=== PATIENT | male | born 1975 | race Caucasian/White ===

== ENCOUNTER 2023-07-05 21:45 | Emergency (ER) | payer BC, SELFPAY ==
[2023-07-05] VITALS (21 sets, daily range): BP systolic 70–115; BP diastolic 40–80; PULSE 76–91; RESP 9–21; TEMP 35.8–36.4; O2SAT 48–100; BMI 27.1
--- NOTE | 2023-07-05 21:50 | XR_ITS ---
The [address] [address] Patient Name: RICKY THORNE MRN: [id number] date: 1975 Sex: M Assigned Patient Location: ED.MAIN Current Patient Location: ER Accession/Order Number: [id number] Exam Date: 07/05/2023 22:50 Report Date: 07/05/2023 23:19 At the request of: MAIN UGARTE Procedure: XR chest 1V EXAM: XR chest 1V HISTORY: syncope COMPARISON: None. TECHNIQUE: One view of the chest was obtained. FINDINGS: The cardiac silhouette is normal in size. The lungs are clear. There is no significant pneumothorax or pleural effusion. No acute osseous abnormality is seen. XR/XR chest 1V IMPRESSION: 1. No acute cardiopulmonary abnormality. Electronically authenticated by: Rody KENDALL Date: 07/05/2023 23:19
--- NOTE | 2023-07-05 21:50 | CT_ITS ---
The [address] [address] Patient Name: RICKY THORNE MRN: [id number] date: 1975 Sex: M Assigned Patient Location: ER Current Patient Location: ER Accession/Order Number: [id number] Exam Date: 07/05/2023 22:30 Report Date: 07/05/2023 23:00 At the request of: MAIN UGARTE Procedure: CT cervical spine wo con EXAM: CT head/brain wo con, CT cervical spine wo con HISTORY: Syncope COMPARISON: None. TECHNIQUE: Noncontrast axial CT images through the head were obtained with coronal and sagittal reformats. Dose reduction techniques were achieved by using automated exposure control and/or adjustment of mA and/or kV according to patient size and/or use of iterative reconstruction technique. FINDINGS: CT head: The cerebral sulci and ventricles are normal in size and shape for the patient's age. The density of the cerebrum, brainstem, and cerebellum is unremarkable. There is no evidence of intracranial hemorrhage, mass, or midline shift. No extra-axial fluid collection is seen. The brainstem and cerebellum are normal in appearance. The visualized paranasal sinuses and mastoid air cells are clear. No skull abnormalities are identified. CT cervical spine: No acute fracture or subluxation is seen. The vertebral body heights are preserved. There is approximately 1 mm of C5 on C6 retrolisthesis which is likely due to degenerative changes. Otherwise, the vertebral elements are in anatomic alignment. The prevertebral soft tissues are unremarkable. There is moderate to advanced degenerative disc disease at C5-C6. There are multilevel degenerative changes including endplate osteophytes, degenerative facet arthropathy, and uncovertebral hypertrophy. There is severe right and mild left neural foraminal narrowing at C3-C4 secondary to uncovertebral hypertrophy. There is mild bilateral neural foraminal narrowing at C4-C5 secondary to a diffuse disc bulge. There is severe right and moderate left neural foraminal narrowing at C5-C6 secondary to a posterior disc osteophyte complex. There is mild spinal canal stenosis at C5-C6 secondary to a posterior disc osteophyte complex. CT/CT cervical spine wo con IMPRESSION: 1. No acute intracranial abnormality. 2. No acute fracture or subluxation of the cervical spine is seen. Electronically authenticated by: Rody KENDALL Date: 07/05/2023 23:00
--- NOTE | 2023-07-05 21:50 | ECG_ITS ---
The [facility] Test Date: 2023-07-05 Pat Name: RICKY THORNE Department: Room: - Gender: Male [employer]ist: : 1975 Requested By: Order Number: [id number] Reading MD: JANNET MUHAMMAD Measurements Intervals [place] Rate: 89 P: 71 OR: 146 QRS: 80 QRSD: 98 T: 69 QT: 386 QTc: 433 Interpretive Statements 1100 Sinus rhythm 9110 normal ECG No previous ECG available for comparison Electronically Signed On 07-06-2023 7:11:48 EST by JANNET MUHAMMAD
--- NOTE | 2023-07-05 21:51 | CT_ITS ---
The [address] [address] Patient Name: RICKY THORNE MRN: [id number] date: 1975 Sex: M Assigned Patient Location: ER Current Patient Location: ER Accession/Order Number: [id number] Exam Date: 07/05/2023 22:30 Report Date: 07/05/2023 23:00 At the request of: MAIN UGARTE Procedure: CT head/brain wo con EXAM: CT head/brain wo con, CT cervical spine wo con HISTORY: Syncope COMPARISON: None. TECHNIQUE: Noncontrast axial CT images through the head were obtained with coronal and sagittal reformats. Dose reduction techniques were achieved by using automated exposure control and/or adjustment of mA and/or kV according to patient size and/or use of iterative reconstruction technique. FINDINGS: CT head: The cerebral sulci and ventricles are normal in size and shape for the patient's age. The density of the cerebrum, brainstem, and cerebellum is unremarkable. There is no evidence of intracranial hemorrhage, mass, or midline shift. No extra-axial fluid collection is seen. The brainstem and cerebellum are normal in appearance. The visualized paranasal sinuses and mastoid air cells are clear. No skull abnormalities are identified. CT cervical spine: No acute fracture or subluxation is seen. The vertebral body heights are preserved. There is approximately 1 mm of C5 on C6 retrolisthesis which is likely due to degenerative changes. Otherwise, the vertebral elements are in anatomic alignment. The prevertebral soft tissues are unremarkable. There is moderate to advanced degenerative disc disease at C5-C6. There are multilevel degenerative changes including endplate osteophytes, degenerative facet arthropathy, and uncovertebral hypertrophy. There is severe right and mild left neural foraminal narrowing at C3-C4 secondary to uncovertebral hypertrophy. There is mild bilateral neural foraminal narrowing at C4-C5 secondary to a diffuse disc bulge. There is severe right and moderate left neural foraminal narrowing at C5-C6 secondary to a posterior disc osteophyte complex. There is mild spinal canal stenosis at C5-C6 secondary to a posterior disc osteophyte complex. CT/CT head/brain wo con IMPRESSION: 1. No acute intracranial abnormality. 2. No acute fracture or subluxation of the cervical spine is seen. Electronically authenticated by: Rody KENDALL Date: 07/05/2023 23:00
--- NOTE | 2023-07-05 21:52 | CT_ITS ---
[address] [address] Patient Name: RICKY THORNE MRN: [id number] date: 1975 Sex: M Assigned Patient Location: ER Current Patient Location: Accession/Order Number: [id number] Exam Date: 07/05/2023 22:30 Report Date: 07/05/2023 22:58 At the request of: MAIN UGARTE Procedure: CT thoracic spine wo con EXAM: CT thoracic spine wo con TECHNIQUE: Axial CT images were obtained through the thoracic spine along with sagittal and coronal reformatted images. Dose reduction techniques were achieved by using automated exposure control and/or adjustment of mA and/or kV according to patient size and/or use of iterative reconstruction technique. HISTORY: Syncope COMPARISON: None. FINDINGS: Vertebrae: Vertebral heights are maintained. No acute fracture. Alignment: No acute subluxation. Arthritis: No significant arthritic changes. Intervertebral discs: No significant gross disc pathology. Soft tissues: The paravertebral soft tissues are unremarkable. CT/CT thoracic spine wo con IMPRESSION: No acute findings Electronically authenticated by: EDDIE MATUTE Date: 07/05/2023 22:58
--- NOTE | 2023-07-05 21:53 | ED.GENADUL1 ---
Documented by User: LULU Medina 07/05/23 21:58 HPI - General Adult General Chief complaint: Allergic Reaction Stated complaint: Shortness of breath Time Seen by Provider: 07/05/23 21:50 History of Present Illness HPI narrative: Patient is a 47-year-old male with a history of alcohol abuse brought to the emergency department by EMS for multiple complaints. Patient called 911 while he was sitting on the toilet having diarrhea because he had a sense of impending doom , on EMS arrival the patient was on the ground in the bathroom pale and sweaty. Patient complains of neck pain, back pain, diffuse numbness and tingling throughout his entire body. He needs to be redirected initial interview multiple times. Patient is on aspirin and Plavix daily. No medications given by EMS prior to arrival that they did start an IV and give minimal fluids. EMS reports that the patient was hypotensive on their arrival. They state that they witnessed a 5-second seizure with no postictal period where the patient scratched his left lower leg. He has not attempted to ambulate since this incident. Related Data Home Medications Medication Instructions Recorded Confirmed aspirin 81 mg tablet,delayed 81 mg PO DAILY 07/05/23 07/05/23 release atenolol 100 mg tablet 100 mg PO DAILY 07/05/23 07/05/23 atorvastatin 40 mg tablet 40 mg PO BEDTIME 07/05/23 07/05/23 clopidogrel 75 mg tablet 75 mg PO DAILY 07/05/23 07/05/23 nifedipine 90 mg tablet,extended 90 mg PO DAILY 07/05/23 07/05/23 release oxycodone 5 mg tablet 5 mg PO Q12H 07/05/23 07/05/23 sertraline 100 mg tablet 150 mg PO Q24H 07/05/23 07/05/23 sildenafil (pulm.hypertension) 20 20 mg PO Q24H 07/05/23 07/05/23 mg tablet tramadol 50 mg tablet 50 mg PO Q12H 07/05/23 07/05/23 varenicline 1 mg tablet 1 mg PO BID 07/05/23 07/05/23 Allergies Allergy/AdvReac Type Severity Reaction Status Date / Time No Known Drug Allergies Allergy Verified 07/05/23 21:57 Review of Systems ROS Constitutional Denies: fever or chills Ears, nose, mouth, and throat Reports: neck pain; Denies: throat pain Cardiovascular Denies: chest pain Respiratory Denies: shortness of breath or cough Gastrointestinal Reports: nausea and diarrhea; Denies: vomiting Genitourinary Denies: painful urination Musculoskeletal Reports: back pain and neck pain; Denies: extremity swelling Integumentary/Breast Denies: rash Neurological Reports: headache, numbness in extremities, weakness in extremities, dizziness and seizure-like activity Psychiatric Denies: anxiety Hematologic/Lymphatic Denies: easy bruising [facility] Social History Smoking status: Current every day smoker Exam Narrative Exam Narrative: Gen.: Awake, alert, in no distress Head: Normocephalic, atraumatic; no physical exam findings concerning for head injury or facial injury, no injury to the tongue ENT: Moist mucous membranes Respiratory: No respiratory distress, lungs clear bilaterally Cardio: Regular rate and rhythm Gastrointestinal: Abdomen is soft, nondistended and nontender to palpation; pelvis is stable and hips nontender Extremities: Moves extremities equally, 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 Faint abrasions noted to the left anterior tibia Psych: Cooperative, appears intoxicated Neuro: No focal neuro deficit Skin: Warm, dry, intact Constitutional Vital Signs, click to edit/add: Last Vital Signs Temp 97.5 F L 07/05/23 23:29 Pulse 74 07/06/23 00:50 Resp 19 07/06/23 00:50 BP 114/73 07/06/23 00:45 Pulse Ox 96 07/06/23 00:50 O2 Del Method Room Air 07/05/23 21:47 Course Vital Signs Vital signs: Vital Signs Temperature 96.5 F L 07/05/23 21:47 Pulse Rate 90 07/05/23 21:47 Respiratory Rate 18 07/05/23 21:47 Blood Pressure 80/50 L 07/05/23 21:47 Pulse Oximetry 95 07/05/23 21:47 Oxygen Delivery Method Room Air 07/05/23 21:47 Temperature 97.5 F L 07/05/23 23:29 Pulse Rate 74 07/06/23 00:50 Respiratory Rate 19 07/06/23 00:50 Blood Pressure 114/73 07/06/23 00:45 Pulse Oximetry 96 07/06/23 00:50 Oxygen Delivery Method Room Air 07/05/23 21:47 Medical Decision Making MDM Narrative Medical decision making narrative: 2199: Patient noted to be hypotensive at initial interview, IV fluids were given with pressure bag. He has a normal EKG. CTs of the head, C-spine, T-spine, chest x-ray, labs are all pending at this time. Case is turned over to attending physician for disposition. Medical Records Medical records reviewed: Yes I reviewed the patient's medical records Lab Data Lab results reviewed: Yes I reviewed the patient's lab results Labs: Lab Results 07/05/23 07/05/23 07/05/23 Range/Units 22:00 22:19 23:47 WBC 11.8 H (4.0-11.0) 10^3/uL RBC 4.42 L (4.70-6.10) 10^6/uL Hgb 14.5 (14.0-18.0) g/dL Hct 43.8 (42.0-54.0) % MCV 99.1 H (80.0-94.0) fL MCH 32.8 (25.9-34.0) pg MCHC 33.1 (29.9-35.2) g/dL RDW 13.2 (11.0-15.0) % Plt Count 253 (150-450) 10^3/uL MPV 10.0 (9.5-13.5) fL Neut % (Auto) 73.4 (43.0-75.0) % Lymph % (Auto) 23.0 (20.5-60.0) % [place] % (Auto) 2.3 (1.7-12.0) % Eos % (Auto) 0.4 L (0.9-7.0) % Baso % (Auto) 0.3 (0.2-2.0) % Neut # (Auto) 8.6 H (1.4-6.5) 10^3/uL Lymph # (Auto) 2.7 (1.2-3.8) 10^3/uL [place] # (Auto) 0.3 (0.3-0.8) 10^3/uL Eos # (Auto) 0.1 (0.0-0.7) 10^3/uL Baso # (Auto) 0.0 (0.0-0.1) 10^3/uL Abs Immat Gran (auto) 0.07 H (0.00-0.03) 10^3/uL Imm/Tot Granulo (auto) 0.6 H (0.0-0.5) % PT 10.4 (9.0-11.6) sec INR 0.98 Sodium 137 (136-145) mmol/L Potassium 3.6 (3.5-5.1) mmol/L Chloride 101 (98-107) mmol/L Carbon Dioxide 22.1 (21.0-32.0) mmol/L Anion Gap 17.5 BUN 17.0 (7.0-18.0) mg/dL Creatinine 1.54 H (0.70-1.30) mg/dL Est GFR ( Amer) 59 L (>=60) Est GFR (Non-Af Amer) 48 L (>=60) BUN/Creatinine Ratio 11.0 Glucose 270 H (74-106) mg/dL Lactate 4.3 H* (0.4-2.0) mmol/L Calcium 8.4 L (8.5-10.1) mg/dL Magnesium 2.0 (1.8-2.4) mg/dL Total Bilirubin 0.6 (0.2-1.0) mg/dL AST 42 H (15-37) U/L ALT 72 H (16-63) U/L Alkaline Phosphatase 102 (46-116) U/L Troponin I High Sens 21.1 (4.0-76.1) pg/mL Total Protein 6.6 (6.4-8.2) g/dL Albumin 3.0 L (3.4-5.0) g/dL Globulin 3.6 g/dL Albumin/Globulin Ratio 0.8 TSH 3.700 (0.358-3.740) uIU/mL Urine Color Dk. yellow (YELLOW) Urine Clarity Clear (CLEAR) Urine pH 6.5 (5.0-9.0) Ur Specific [place] 1.025 (1.005-1.025) Urine Protein 100 A (NEG/TRACE) mg/dL Urine Glucose (UA) 100 A (NEGATIVE) mg/dL Urine Ketones Negative (NEGATIVE) mg/dL Urine Occult Blood Negative (NEGATIVE) Urine Nitrite Negative (NEGATIVE) Urine Bilirubin Negative (NEGATIVE) Urine Urobilinogen 0.2 (0.2-1.0) EU/dL Ur Leukocyte Esterase Negative (NEGATIVE) Urine Opiates Screen Negative (NEGATIVE) Ur Buprenorphine Scrn Negative (NEGATIVE) Ur Oxycodone Screen Negative (NEGATIVE) Urine Methadone Screen Negative (NEGATIVE) Ur Barbiturates Screen Negative (NEGATIVE) U Tricyclic Antidepress Negative (NEGATIVE) Ur Phencyclidine Scrn Negative (NEGATIVE) Ur Amphetamines Screen Negative (NEGATIVE) U Methamphetamines Scrn Negative (NEGATIVE) U Benzodiazepines Scrn Negative (NEGATIVE) Urine Cocaine Screen Negative (NEGATIVE) U Cannabinoids Screen Negative (NEGATIVE) Ethanol Quant <3 mg/dL POC Glucose 140 H (74-106) mg/dL 07/06/23 Range/Units 00:34 WBC (4.0-11.0) 10^3/uL RBC (4.70-6.10) 10^6/uL Hgb (14.0-18.0) g/dL Hct (42.0-54.0) % MCV (80.0-94.0) fL MCH (25.9-34.0) pg MCHC (29.9-35.2) g/dL RDW (11.0-15.0) % Plt Count (150-450) 10^3/uL MPV (9.5-13.5) fL Neut % (Auto) (43.0-75.0) % Lymph % (Auto) (20.5-60.0) % [place] % (Auto) (1.7-12.0) % Eos % (Auto) (0.9-7.0) % Baso % (Auto) (0.2-2.0) % Neut # (Auto) (1.4-6.5) 10^3/uL Lymph # (Auto) (1.2-3.8) 10^3/uL [place] # (Auto) (0.3-0.8) 10^3/uL Eos # (Auto) (0.0-0.7) 10^3/uL Baso # (Auto) (0.0-0.1) 10^3/uL Abs Immat Gran (auto) (0.00-0.03) 10^3/uL Imm/Tot Granulo (auto) (0.0-0.5) % PT (9.0-11.6) sec INR Sodium (136-145) mmol/L Potassium (3.5-5.1) mmol/L Chloride (98-107) mmol/L Carbon Dioxide (21.0-32.0) mmol/L Anion Gap BUN (7.0-18.0) mg/dL Creatinine (0.70-1.30) mg/dL Est GFR ( Amer) (>=60) Est GFR (Non-Af Amer) (>=60) BUN/Creatinine Ratio Glucose (74-106) mg/dL Lactate 1.3 (0.4-2.0) mmol/L Calcium (8.5-10.1) mg/dL Magnesium (1.8-2.4) mg/dL Total Bilirubin (0.2-1.0) mg/dL AST (15-37) U/L ALT (16-63) U/L Alkaline Phosphatase (46-116) U/L Troponin I High Sens (4.0-76.1) pg/mL Total Protein (6.4-8.2) g/dL Albumin (3.4-5.0) g/dL Globulin g/dL Albumin/Globulin Ratio TSH (0.358-3.740) uIU/mL Urine Color (YELLOW) Urine Clarity (CLEAR) Urine pH (5.0-9.0) Ur Specific [place] (1.005-1.025) Urine Protein (NEG/TRACE) mg/dL Urine Glucose (UA) (NEGATIVE) mg/dL Urine Ketones (NEGATIVE) mg/dL Urine Occult Blood (NEGATIVE) Urine Nitrite (NEGATIVE) Urine Bilirubin (NEGATIVE) Urine Urobilinogen (0.2-1.0) EU/dL Ur Leukocyte Esterase (NEGATIVE) Urine Opiates Screen (NEGATIVE) Ur Buprenorphine Scrn (NEGATIVE) Ur Oxycodone Screen (NEGATIVE) Urine Methadone Screen (NEGATIVE) Ur Barbiturates Screen (NEGATIVE) U Tricyclic Antidepress (NEGATIVE) Ur Phencyclidine Scrn (NEGATIVE) Ur Amphetamines Screen (NEGATIVE) U Methamphetamines Scrn (NEGATIVE) U Benzodiazepines Scrn (NEGATIVE) Urine Cocaine Screen (NEGATIVE) U Cannabinoids Screen (NEGATIVE) Ethanol Quant mg/dL POC Glucose (74-106) mg/dL ECG Data Attestation: I personally reviewed and interpreted this ECG as follows: (Normal sinus rhythm at a rate of 89, no acute ST elevation or ectopy. EKG reviewed by attending physician) Discharge Plan Discharge Chief Complaint: Allergic Reaction Clinical Impression: Acute hypotension, Syncope, Adverse reaction to drug Patient Disposition: Home, Self-Care Time of Disposition Decision: 01:32 Condition: Good Prescriptions / Home Meds: No Action aspirin 81 mg tablet,delayed release (DR/EC) 81 mg PO DAILY atenolol 100 mg tablet 100 mg PO DAILY atorvastatin 40 mg tablet 40 mg PO BEDTIME clopidogrel 75 mg tablet 75 mg PO DAILY oxycodone 5 mg tablet 5 mg PO Q12H sertraline 100 mg tablet 150 mg PO Q24H sildenafil (pulm.hypertension) 20 mg tablet 20 mg PO Q24H tramadol 50 mg tablet 50 mg PO Q12H varenicline 1 mg tablet 1 mg PO BID nifedipine 90 mg tablet extended release 90 mg PO DAILY Instructions: Syncope (DC), Hypotension (DC), General Allergic Reaction (ED) Additional Instructions: Discontinue taking Sildenafil. Follow up closely with Dr Coronado for further evaluation and treatment Stand Alone Forms: Portal Instructions Referrals: VALERIY ORO [Physician] - 1 week Documented by User: Mariya Jade MD 07/06/23 01:34 HPI - General Adult General Chief complaint: Allergic Reaction Stated complaint: Shortness of breath Time Seen by Provider: 07/05/23 21:50 Related Data Home Medications Medication Instructions Recorded Confirmed aspirin 81 mg tablet,delayed 81 mg PO DAILY 07/05/23 07/05/23 release atenolol 100 mg tablet 100 mg PO DAILY 07/05/23 07/05/23 atorvastatin 40 mg tablet 40 mg PO BEDTIME 07/05/23 07/05/23 clopidogrel 75 mg tablet 75 mg PO DAILY 07/05/23 07/05/23 nifedipine 90 mg tablet,extended 90 mg PO DAILY 07/05/23 07/05/23 release oxycodone 5 mg tablet 5 mg PO Q12H 07/05/23 07/05/23 sertraline 100 mg tablet 150 mg PO Q24H 07/05/23 07/05/23 sildenafil (pulm.hypertension) 20 20 mg PO Q24H 07/05/23 07/05/23 mg tablet tramadol 50 mg tablet 50 mg PO Q12H 07/05/23 07/05/23 varenicline 1 mg tablet 1 mg PO BID 07/05/23 07/05/23 Allergies Allergy/AdvReac Type Severity Reaction Status Date / Time No Known Drug Allergies Allergy Verified 07/05/23 21:57 PFSH PFSH Social History Smoking status: Current every day smoker Exam Constitutional Vital Signs, click to edit/add: Last Vital Signs Temp 97.5 F L 07/05/23 23:29 Pulse 74 07/06/23 00:50 Resp 19 07/06/23 00:50 BP 114/73 07/06/23 00:45 Pulse Ox 96 07/06/23 00:50 O2 Del Method Room Air 07/05/23 21:47 Course Vital Signs Vital signs: Vital Signs Temperature 96.5 F L 07/05/23 21:47 Pulse Rate 90 07/05/23 21:47 Respiratory Rate 18 07/05/23 21:47 Blood Pressure 80/50 L 07/05/23 21:47 Pulse Oximetry 95 07/05/23 21:47 Oxygen Delivery Method Room Air 07/05/23 21:47 Temperature 97.5 F L 07/05/23 23:29 Pulse Rate 74 07/06/23 00:50 Respiratory Rate 19 07/06/23 00:50 Blood Pressure 114/73 07/06/23 00:45 Pulse Oximetry 96 07/06/23 00:50 Oxygen Delivery Method Room Air 07/05/23 21:47 Medical Decision Making MDM Narrative Medical decision making narrative: 2199: Patient noted to be hypotensive at initial interview, IV fluids were given with pressure bag. He has a normal EKG. CTs of the head, C-spine, T-spine, chest x-ray, labs are all pending at this time. Case is turned over to attending physician for disposition. This patient was seen and evaluated in conjunction with the physician assistant manager of operations. He is brought to the emergency department by EMS after he had diarrhea either on the toilet or in the shower and had a syncopal events or seizure related activity. Upon arrival the patient was noted to be cool to the touch and a oral temperature was unable to be obtained. Rectal temperature was noted to be 96. He was placed on a bear hugger. The patient's skin is red and diffusely erythematous with some mild swelling of his periorbital tissues. There is no swelling of the tongue, uvula or pharyngeal soft tissues. The patient was asked multiple times if he is taking any new medications or any antibiotics and he denies this but ultimately recalled that he has been taking sildenafil for pulmonary hypertension and every time he takes it he started getting itchy. She didn't upon arrival with a normal sinus rhythm at 89 bpm. He was noted be hypotensive upon arrival and was given IV fluids. Due to the likelihood of this being some kind of ALLERGIC reaction he was given IV Solu-Medrol, IV Benadryl and IV Pepcid. He is clinically improving and more alert and appropriate. He is alert and oriented to person place and recalls some of the details of the events leading up to him coming to the emergency department. His neuro exam is normal. He has no gross focal deficits. He does not have a history of any seizure disorder. Labs are reviewed. He has a normal white count and hemoglobin. He has an elevated lactic acid. He has an elevated creatinine at 1.54. His alcohol is less than 3. He has a normal troponin. CT scans and xrays are normal. He was continually monitored while in the ER and his vital signs and condition continually improved. I suspect that the patient had an episode of hypotension from the Sildenafil as well as an ALLERGIC reaction That included diarrhea, hypotension, swelling of his face and diffuse erythema. Repeat lactic acid is normal at 1.4. His blood pressure is better. His temperature is normal. He was offered admission but declines and wishes to be discharged home. He is ambulatory in the room and states he is hungry. He was given peanut butter crackers and soda in the ER. He will be discharged home with his who was given recommendation for close monitoring and return to the emergency department for any change in his mental status, dizziness, syncope or any concerns. I suggested he follow up closely with his hematology oncology consultant and discontinue taking the Sildenafil. Medical Records Medical records narrative: The [address] [address] [address] Scan Report Signed Patient: RICKY THORNE MR#: [id number] : 1975 Acct:[id number] Age/Sex: 47 / M ADM Date: 07/05/23 Loc: ER Attending Dr: Ordering Physician: Main Ugarte Date of Service: 07/05/23 Procedure(s): CT thoracic spine wo con Accession Number(s): [id number] cc: MARY BENITEZ ~ The [place] [address] Patient Name: RICKY THORNE MRN: [id number] date: 1975 Sex: M Assigned Patient Location: ER Current Patient Location: ER Accession/Order Number: [id number] Exam Date: 07/05/2023 22:30 Report Date: 07/05/2023 22:58 At the request of: MAIN UGARTE Procedure: CT thoracic spine wo con EXAM: CT thoracic spine wo con TECHNIQUE: Axial CT images were obtained through the thoracic spine along with sagittal and coronal reformatted images. Dose reduction techniques were achieved by using automated exposure control and/or adjustment of mA and/or kV according to patient size and/or use of iterative reconstruction technique. HISTORY: Syncope COMPARISON: None. FINDINGS: Vertebrae: Vertebral heights are maintained. No acute fracture. Alignment: No acute subluxation. Arthritis: No significant arthritic changes. Intervertebral discs: No significant gross disc pathology. Soft tissues: The paravertebral soft tissues are unremarkable. CT/CT thoracic spine wo con IMPRESSION: [place] [address] CT Scan Report Signed Patient: RICKY THORNE MR#: [id number] : 1975 Acct:[id number] Age/Sex: 47 / M ADM Date: 07/05/23 Loc: ER Attending Dr: Ordering Physician: Main Ugarte Date of Service: 07/05/23 Procedure(s): CT head/brain wo con Accession Number(s): [id number] cc: MARY BENITEZ ~ The [place] [address] Patient Name: RICKY THORNE MRN: [facility]:[id number] date: 1975 Sex: M Assigned Patient Location: ER Current Patient Location: ER Accession/Order Number: [id number] Exam Date: 07/05/2023 22:30 Report Date: 07/05/2023 23:00 At the request of: MAIN UGARTE Procedure: CT head/brain wo con EXAM: CT head/brain wo con, CT cervical spine wo con HISTORY: Syncope COMPARISON: None. TECHNIQUE: Noncontrast axial CT images through the head were obtained with coronal and sagittal reformats. Dose reduction techniques were achieved by using automated exposure control and/or adjustment of mA and/or kV according to patient size and/or use of iterative reconstruction technique. FINDINGS: CT head: The cerebral sulci and ventricles are normal in size and shape for the patient's age. The density of the cerebrum, brainstem, and cerebellum is unremarkable. There is no evidence of intracranial hemorrhage, mass, or midline shift. No extra-axial fluid collection is seen. The brainstem and cerebellum are normal in appearance. The visualized paranasal sinuses and mastoid air cells are clear. No skull abnormalities are identified. CT cervical spine: No acute fracture or subluxation is seen. The vertebral body heights are preserved. There is approximately 1 mm of C5 on C6 retrolisthesis which is likely due to degenerative changes. Otherwise, the vertebral elements are in anatomic alignment. The prevertebral soft tissues are unremarkable. There is moderate to advanced degenerative disc disease at C5-C6. There are multilevel degenerative changes including endplate osteophytes, degenerative facet arthropathy, and uncovertebral hypertrophy. There is severe right and mild left neural foraminal narrowing at C3-C4 secondary to uncovertebral hypertrophy. There is mild bilateral neural foraminal narrowing at C4-C5 secondary to a diffuse disc bulge. There is severe right and moderate left neural foraminal narrowing at C5-C6 secondary to a posterior disc osteophyte complex. There is mild spinal canal stenosis at C5-C6 secondary to a posterior disc osteophyte complex. CT/CT head/brain wo con IMPRESSION: 1. No acute intracranial abnormality. 2. No acute fracture or subluxation of the cervical spine is seen. The [address] [address] XRay Report Signed Patient: RICKY THORNE MR#: [id number] : 1975 Acct:[id number] Age/Sex: 47 / M ADM Date: 07/05/23 Loc: ER Attending Dr: Ordering Physician: Main Ugarte Date of Service: 07/05/23 Procedure(s): XR chest 1V Accession Number(s): [id number] cc: MARY BENITEZ ; Main Ugarte~ The [address] [address] Patient Name: RICKY THORNE MRN: [id number] date: 1975 Sex: M Assigned Patient Location: ED.MAIN Current Patient Location: ER Accession/Order Number: [id number] Exam Date: 07/05/2023 22:50 Report Date: 07/05/2023 23:19 At the request of: MAIN UGARTE Procedure: XR chest 1V EXAM: XR chest 1V HISTORY: syncope COMPARISON: None. TECHNIQUE: One view of the chest was obtained. FINDINGS: The cardiac silhouette is normal in size. The lungs are clear. There is no significant pneumothorax or pleural effusion. No acute osseous abnormality is seen. XR/XR chest 1V IMPRESSION: 1. No acute cardiopulmonary abnormalit Lab Data Labs: Lab Results 07/05/23 07/05/23 07/05/23 Range/Units 22:00 22:19 23:47 WBC 11.8 H (4.0-11.0) 10^3/uL RBC 4.42 L (4.70-6.10) 10^6/uL Hgb 14.5 (14.0-18.0) g/dL Hct 43.8 (42.0-54.0) % MCV 99.1 H (80.0-94.0) fL MCH 32.8 (25.9-34.0) pg MCHC 33.1 (29.9-35.2) g/dL RDW 13.2 (11.0-15.0) % Plt Count 253 (150-450) 10^3/uL MPV 10.0 (9.5-13.5) fL Neut % (Auto) 73.4 (43.0-75.0) % Lymph % (Auto) 23.0 (20.5-60.0) % [place] % (Auto) 2.3 (1.7-12.0) % Eos % (Auto) 0.4 L (0.9-7.0) % Baso % (Auto) 0.3 (0.2-2.0) % Neut # (Auto) 8.6 H (1.4-6.5) 10^3/uL Lymph # (Auto) 2.7 (1.2-3.8) 10^3/uL [place] # (Auto) 0.3 (0.3-0.8) 10^3/uL Eos # (Auto) 0.1 (0.0-0.7) 10^3/uL Baso # (Auto) 0.0 (0.0-0.1) 10^3/uL Abs Immat Gran (auto) 0.07 H (0.00-0.03) 10^3/uL Imm/Tot Granulo (auto) 0.6 H (0.0-0.5) % PT 10.4 (9.0-11.6) sec INR 0.98 Sodium 137 (136-145) mmol/L Potassium 3.6 (3.5-5.1) mmol/L Chloride 101 (98-107) mmol/L Carbon Dioxide 22.1 (21.0-32.0) mmol/L Anion Gap 17.5 BUN 17.0 (7.0-18.0) mg/dL Creatinine 1.54 H (0.70-1.30) mg/dL Est GFR ( Amer) 59 L (>=60) Est GFR (Non-Af Amer) 48 L (>=60) BUN/Creatinine Ratio 11.0 Glucose 270 H (74-106) mg/dL Lactate 4.3 H* (0.4-2.0) mmol/L Calcium 8.4 L (8.5-10.1) mg/dL Magnesium 2.0 (1.8-2.4) mg/dL Total Bilirubin 0.6 (0.2-1.0) mg/dL AST 42 H (15-37) U/L ALT 72 H (16-63) U/L Alkaline Phosphatase 102 (46-116) U/L Troponin I High Sens 21.1 (4.0-76.1) pg/mL Total Protein 6.6 (6.4-8.2) g/dL Albumin 3.0 L (3.4-5.0) g/dL Globulin 3.6 g/dL Albumin/Globulin Ratio 0.8 TSH 3.700 (0.358-3.740) uIU/mL Urine Color Dk. yellow (YELLOW) Urine Clarity Clear (CLEAR) Urine pH 6.5 (5.0-9.0) Ur Specific [place] 1.025 (1.005-1.025) Urine Protein 100 A (NEG/TRACE) mg/dL Urine Glucose (UA) 100 A (NEGATIVE) mg/dL Urine Ketones Negative (NEGATIVE) mg/dL Urine Occult Blood Negative (NEGATIVE) Urine Nitrite Negative (NEGATIVE) Urine Bilirubin Negative (NEGATIVE) Urine Urobilinogen 0.2 (0.2-1.0) EU/dL Ur Leukocyte Esterase Negative (NEGATIVE) Urine Opiates Screen Negative (NEGATIVE) Ur Buprenorphine Scrn Negative (NEGATIVE) Ur Oxycodone Screen Negative (NEGATIVE) Urine Methadone Screen Negative (NEGATIVE) Ur Barbiturates Screen Negative (NEGATIVE) U Tricyclic Antidepress Negative (NEGATIVE) Ur Phencyclidine Scrn Negative (NEGATIVE) Ur Amphetamines Screen Negative (NEGATIVE) U Methamphetamines Scrn Negative (NEGATIVE) U Benzodiazepines Scrn Negative (NEGATIVE) Urine Cocaine Screen Negative (NEGATIVE) U Cannabinoids Screen Negative (NEGATIVE) Ethanol Quant <3 mg/dL POC Glucose 140 H (74-106) mg/dL 07/06/23 Range/Units 00:34 WBC (4.0-11.0) 10^3/uL RBC (4.70-6.10) 10^6/uL Hgb (14.0-18.0) g/dL Hct (42.0-54.0) % MCV (80.0-94.0) fL MCH (25.9-34.0) pg MCHC (29.9-35.2) g/dL RDW (11.0-15.0) % Plt Count (150-450) 10^3/uL MPV (9.5-13.5) fL Neut % (Auto) (43.0-75.0) % Lymph % (Auto) (20.5-60.0) % [place] % (Auto) (1.7-12.0) % Eos % (Auto) (0.9-7.0) % Baso % (Auto) (0.2-2.0) % Neut # (Auto) (1.4-6.5) 10^3/uL Lymph # (Auto) (1.2-3.8) 10^3/uL [place] # (Auto) (0.3-0.8) 10^3/uL Eos # (Auto) (0.0-0.7) 10^3/uL Baso # (Auto) (0.0-0.1) 10^3/uL Abs Immat Gran (auto) (0.00-0.03) 10^3/uL Imm/Tot Granulo (auto) (0.0-0.5) % PT (9.0-11.6) sec INR Sodium (136-145) mmol/L Potassium (3.5-5.1) mmol/L Chloride (98-107) mmol/L Carbon Dioxide (21.0-32.0) mmol/L Anion Gap BUN (7.0-18.0) mg/dL Creatinine (0.70-1.30) mg/dL Est GFR ( Amer) (>=60) Est GFR (Non-Af Amer) (>=60) BUN/Creatinine Ratio Glucose (74-106) mg/dL Lactate 1.3 (0.4-2.0) mmol/L Calcium (8.5-10.1) mg/dL Magnesium (1.8-2.4) mg/dL Total Bilirubin (0.2-1.0) mg/dL AST (15-37) U/L ALT (16-63) U/L Alkaline Phosphatase (46-116) U/L Troponin I High Sens (4.0-76.1) pg/mL Total Protein (6.4-8.2) g/dL Albumin (3.4-5.0) g/dL Globulin g/dL Albumin/Globulin Ratio TSH (0.358-3.740) uIU/mL Urine Color (YELLOW) Urine Clarity (CLEAR) Urine pH (5.0-9.0) Ur Specific [place] (1.005-1.025) Urine Protein (NEG/TRACE) mg/dL Urine Glucose (UA) (NEGATIVE) mg/dL Urine Ketones (NEGATIVE) mg/dL Urine Occult Blood (NEGATIVE) Urine Nitrite (NEGATIVE) Urine Bilirubin (NEGATIVE) Urine Urobilinogen (0.2-1.0) EU/dL Ur Leukocyte Esterase (NEGATIVE) Urine Opiates Screen (NEGATIVE) Ur Buprenorphine Scrn (NEGATIVE) Ur Oxycodone Screen (NEGATIVE) Urine Methadone Screen (NEGATIVE) Ur Barbiturates Screen (NEGATIVE) U Tricyclic Antidepress (NEGATIVE) Ur Phencyclidine Scrn (NEGATIVE) Ur Amphetamines Screen (NEGATIVE) U Methamphetamines Scrn (NEGATIVE) U Benzodiazepines Scrn (NEGATIVE) Urine Cocaine Screen (NEGATIVE) U Cannabinoids Screen (NEGATIVE) Ethanol Quant mg/dL POC Glucose (74-106) mg/dL Critical Care Time Critical Care Time Critical Care Time: Yes Total Critical Care Time: 40 Attestation: . Discharge Plan Discharge Chief Complaint: Allergic Reaction Clinical Impression: Acute hypotension, Syncope, Adverse reaction to drug Patient Disposition: Home, Self-Care Time of Disposition Decision: 01:32 Condition: Good Prescriptions / Home Meds: No Action aspirin 81 mg tablet,delayed release (DR/EC) 81 mg PO DAILY atenolol 100 mg tablet 100 mg PO DAILY atorvastatin 40 mg tablet 40 mg PO BEDTIME clopidogrel 75 mg tablet 75 mg PO DAILY oxycodone 5 mg tablet 5 mg PO Q12H sertraline 100 mg tablet 150 mg PO Q24H sildenafil (pulm.hypertension) 20 mg tablet 20 mg PO Q24H tramadol 50 mg tablet 50 mg PO Q12H varenicline 1 mg tablet 1 mg PO BID nifedipine 90 mg tablet extended release 90 mg PO DAILY Instructions: Syncope (DC), Hypotension (DC), General Allergic Reaction (ED) Additional Instructions: Discontinue taking Sildenafil. Follow up closely with Dr Coronado for further evaluation and treatment Stand Alone Forms: Portal Instructions Referrals: VALERIY ORO [Physician] - 1 week
[2023-07-05] MEDS: 0.9 % SODIUM CHLORIDE 1,000 ML 1000 ML IV (22:05)
[2023-07-05 22:17] LABS: Basophils Percent Auto 0.3 % (0.2-2.0); Eosinophils Absolute Auto 0.1 10^3/uL (0.0-0.7); Eosinophils Percent Auto 0.4 % (0.9-7.0); Hematocrit 43.8 % (42.0-54.0); Hemoglobin 14.5 g/dL (14.0-18.0); Immature Granulocytes Abs Auto 0.07 10^3/uL (0.00-0.03); Immature Granulocytes Pct Auto 0.6 % (0.0-0.5); Lymphocytes Absolute Auto 2.7 10^3/uL (1.2-3.8); Mean Corpuscular HGB Conc 33.1 g/dL (29.9-35.2); Mean Corpuscular Hemoglobin 32.8 pg (25.9-34.0); Mean Corpuscular Volume 99.1 fL (80.0-94.0); Monocytes Absolute Auto 0.3 10^3/uL (0.3-0.8); Monocytes Percent Auto 2.3 % (1.7-12.0); Neutrophils Absolute Auto 8.6 10^3/uL (1.4-6.5); Neutrophils Percent Auto 73.4 % (43.0-75.0); Platelet Count 253 10^3/uL (150-450); Red Blood Count 4.42 10^6/uL (4.70-6.10); Red Cell Distribution Width 13.2 % (11.0-15.0); White Blood Count 11.8 10^3/uL (4.0-11.0)
[2023-07-05 22:20] LABS: Glucometer 140 mg/dL (74-106)
[2023-07-05 22:24] LABS: INR 0.98; Prothrombin Time 10.4 sec (9.0-11.6)
[2023-07-05 22:38] LABS: Alanine Aminotransferase 72 U/L (16-63); Albumin Globulin Ratio 0.8; Alkaline Phosphatase 102 U/L (46-116); Anion Gap 17.5; Aspartate Amino Transferase 42 U/L (15-37); Bilirubin Total 0.6 mg/dL (0.2-1.0); Calcium 8.4 mg/dL (8.5-10.1); Carbon Dioxide 22.1 mmol/L (21.0-32.0); Chloride 101 mmol/L (98-107); Estimated GFR (African America 59 (>=60); Estimated GFR (Non-African Ame 48 (>=60); Ethanol <3 mg/dL; Globulin 3.6 g/dL; Glucose 270 mg/dL (74-106); Potassium 3.6 mmol/L (3.5-5.1); Sodium 137 mmol/L (136-145); Total Protein 6.6 g/dL (6.4-8.2); Troponin I High Sensitivity 21.1 pg/mL (4.0-76.1)
[2023-07-05 22:48] LABS: Lactate/Lactic Acid 4.3 mmol/L (0.4-2.0)
[2023-07-05] MEDS: ONDANSETRON PF 4 MG/2 ML VIAL IV (23:04)
[2023-07-05] MEDS: METHYLPREDNISOLONE SOD SUCC PF 125 MG/2 ML VIAL IVP (23:05)
[2023-07-05] MEDS: DIPHENHYDRAMINE HCL 50 MG/ML (1ML) VIAL 25 MG IV (23:05)
[2023-07-05] MEDS: FAMOTIDINE/PF 20 MG/2 ML VIAL 40 MG IV (23:26)
[2023-07-06] VITALS (14 sets, daily range): BP systolic 103–114; BP diastolic 61–77; PULSE 74–82; RESP 8–21; TEMP 36.9; O2SAT 95–97
[2023-07-06 00:14] LABS: Bilirubin Urine NEGATIVE (NEGATIVE); Blood Urine NEGATIVE (NEGATIVE); Clarity Urine CLEAR (CLEAR); Color Urine DK. YELLOW (YELLOW); Glucose Urine UA 100 mg/dL (NEGATIVE); Ketones Urine NEGATIVE (NEGATIVE); Leukocyte Esterase Urine NEGATIVE (NEGATIVE); Nitrite Urine NEGATIVE (NEGATIVE); Protein Urine 100 mg/dL (NEG/TRACE); Specific Gravity Urine 1.025 (1.005-1.025); Urobilinogen Urine 0.2 EU/dL (0.2-1.0); pH Urine 6.5 (5.0-9.0)
[2023-07-06 00:52] LABS: Amphetamine Screen Urine NEGATIVE (NEGATIVE); Barbiturates Screen Urine NEGATIVE (NEGATIVE); Benzodiazepines Screen Urine NEGATIVE (NEGATIVE); Buprenorphine Screen Urine NEGATIVE (NEGATIVE); Cannabinoid Screen Urine NEGATIVE (NEGATIVE); Cocaine Screen Urine NEGATIVE (NEGATIVE); Methadone Screen Urine NEGATIVE (NEGATIVE); Methamphetamines Screen Urine NEGATIVE (NEGATIVE); Opiate Screen Urine NEGATIVE (NEGATIVE); Oxycodone Screen Urine NEGATIVE (NEGATIVE); Phencyclidine Screen Urine NEGATIVE (NEGATIVE); Tricyclic Antidepressant Urine NEGATIVE (NEGATIVE); Urine Microscopic Indicated NO
[2023-07-06 01:03] LABS: Lactate/Lactic Acid 1.3 mmol/L (0.4-2.0)
== END 2023-07-06 01:49 | disposition home or self-care (01) ==
PROVIDERS: Physician Assistant; Emergency Provider Emergency Medicine; PCP Nurse Practitioner Family
DX: R55 Syncope and collapse (principal); I95.9 Hypotension, unspecified; T46.7X5A Adverse effect of peripheral vasodilators, initial encounter; R19.7 Diarrhea, unspecified; L53.9 Erythematous condition, unspecified; R22.0 Localized swelling, mass and lump, head; I27.20 Pulmonary hypertension, unspecified; Z79.899 Other long term (current) drug therapy
CPT/HCPCS: 36415; 70450; 71045; 72125; 72128; 80053; 80307; 80320; 81003; 83605; 83735; 84443; 84484; 85025; 85610; 87040; 93005; 96361; 96374; 96375; 99285; J2930

== ENCOUNTER 2023-12-06 07:00 | Outpatient (OUT) | payer BC, SELFPAY ==
--- OUTSIDE RECORDS SUMMARY | 2023-12-06 07:04 | XMS_ITS | CCD ---
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 Role Phone HOUSE, DR CROOKS Consulting Unavailable HOUSE, DR CROOKS Admitting Unavailable HOY ., DR VINCENT Primary Care Unavailable HOUSE, DR CROOKS Attending Unavailable HOUSE, DR CROOKS Consulting Unavailable HOUSE, DR CROOKS Primary Care Unavailable HOUSE, DR CROOKS Admitting Unavailable HOUSE, DR CROOKS Attending Unavailable HOUSE, DR CROOKS Consulting Unavailable HOUSE, DR CROOKS Admitting Unavailable HOY ., DR VINCENT Primary Care Unavailable HOUSE, DR CROOKS Attending Unavailable HOUSE, DR CROOKS Consulting Unavailable HOUSE, DR CROOKS Admitting Unavailable HOY ., DR VINCENT Primary Care Unavailable HOUSE, DR CROOKS Attending Unavailable MD Johnny Coronado Attending Provider Tony Lieberman Unavailable MD Tony Lieberman Attending Provider DO Keagan Oro Primary Care Provider MD Tony Lieberman Attending Provider DO Keagan Oro Primary Care Provider KAVYA Andrews Primary Care Provider DO Bryon Moffett Emergency Provider CHOLO WEIR Referring Unavailable THEO, HIREN Referring Unavailable HIREN MAYERS Attending Unavailable BRYON MOFFETT Referring Unavailable THEO, HIREN Admitting Unavailable HTEOHIREN Attending Unavailable RITU Koenig Attending Provider MD Williams Coronado Attending Provider Bryon Moffett Admitting Unavailable Bryon Moffett Attending Unavailable Agustina Andrews Primary Care Unavailable Williams Coronado Admitting Unavailable Keagan Oro Primary Care Unavailable Williams Coronado Attending Unavailable Tony Lieberman Admitting Unavailable Tony Lieberman Attending Unavailable Xander Keagan Primary Care Unavailable Ivonne, Williams Attending Unavailable Agustina Andrews Primary Care Unavailable Ivonne, Williams Admitting Unavailable Ivonne, Williams Attending Unavailable Xander, Keagan Primary Care Unavailable Coronado, Williams Admitting Unavailable Coronado, Williams Attending Unavailable Xander, Keagan Primary Care Unavailable Coronado, Williams Admitting Unavailable Xander, Keagan Primary Care Unavailable Jennifer Koenig Admitting Unavailable Jennifer Koenig Attending Unavailable Medications Current Medications Medication Drug Class(es) Dates Sig (Normalized) Sig (Original) atenolol 100 mg oral tablet (4 sources) beta-Adrenergic Reyes Start: 06-18-2023 take 150 mg by mouth once daily Atenolol Active 150 MG PO Daily June 18, 2023 12:00am Start: 06-18-2023 take 100 mg by mouth once kendy y Atenolol Active 100 MG PO Daily June 18, 2023 12:00am take 1 tablet by demar th every twenty-four hours Atenolol 100 MG 1 tablet Orally Once a day Active cholestyramine resin 4000 mg powder for oral suspension (1 source) Bile Acid Sequestrant Start: 06-22-2023 take 1 dose by mouth twice daily Cholestyramine (With Sugar) Active 4 GM PO Twice daily June 22, 2023 12:00am administer w/meal; avoid other meds within 1hr before or 4-6hr after dose clopidogrel 75 mg oral tablet (1 source) P2Y12 Platelet Inhibitor Start: 06-22-2023 take 1 tablet by mouth once daily Clopidogrel (Plavix) 75 mg Tablet Active 75 MG PO Daily June 22, 2023 12:00am 24 hr NIFEdipine 60 mg extended release oral tablet (4 sources) Dihydropyridine Calcium Channel Reyes Start: 06-18-2023 take 60 mg by mouth once daily Nifedipine Active 60 MG PO Daily June 18, 2023 12:00am take 1 tablet by demar th every twenty-four hours NIFEdipine ER 60 MG 1 tablet on an empty stomach Orally Once a day Active omeprazole 20 mg delayed release oral capsule (4 sources) Proton Pump Inhibitor Start: 06-18-2023 take 20 mg by mouth once daily Omeprazole Active 20 MG PO Daily June 18, 2023 12:00am take 1 capsule by mouth once sakshi ly Omeprazole 20 MG 1 capsule 30 minutes before morning meal Orally Once a day Active sertraline 100 mg oral tablet (4 sources) Serotonin Reuptake Inhibitor Start: 06-18-2023 take 100 mg by mouth once daily Sertraline Active 100 MG PO Daily June 18, 2023 12:00am take 1 tablet by demar th every twenty-four hours Sertraline HCl 100 MG 1 tablet Orally Once a day Active varenicline 1 mg oral tablet (4 sources) Partial Cholinergic Nicotinic Agonist Start: 06-18-2023 take 1 mg by mouth twice daily Varenicline Active 1 MG PO Twice daily June 18, 2023 12:00am Varenicline Tart rate 1 MG as directed Orally Active Completed/Discontinued Medications Medication Drug Class(es) Dates Sig (Normalized) Sig (Original) cefdinir 300 mg oral capsule (2 sources) Cephalosporin Antibacterial Start: 06-18-2023 End: 07-07-2023 take 300 mg by mouth twice daily Cefdinir Discontinued 300 MG PO Twice daily June 18, 2023 12:00am July 07, 2023 7:19am doxycycline monohydrate 100 mg oral capsule (2 sources) Tetracycline-class Drug Start: 06-18-2023 End: 07-07-2023 take 100 mg by mouth twice daily Doxycycline Monohydrate Discontinued 100 MG PO Twice daily June 18, 2023 12:00am July 07, 2023 7:19am X 10 DAYS mupirocin 0.02 mg/mg topical ointment (2 sources) RNA Synthetase Inhibitor Antibacterial Start: 06-18-2023 End: 06-22-2023 Mupirocin Discontinued 0 .ROUTE .COMPLEX June 18, 2023 12:00am June 22, 2023 7:59am APPLY TO DISCOLORED AREAS Problems Active Problems Problem Classification Problem Date Documented Date Episodic/Chronic Chronic obstructive pulmonary disease and bronchiectasis (4 sources) Chronic obstructive lung disease; Translations: [Chronic obstructive pulmonary disease, unspecified] Chronic Chronic ulcer of skin (1 source) Non-pressure chronic ulcer of skin of other sites with unspecified severity; Translations: [Non-pressure chronic ulcer of skin of other sites with unspecified severity] Onset: 10-19-2023 Chronic Gangrene (7 sources) Raynaud's disease; Translations: [Raynaud's syndrome with gangrene] Onset: 06-18-2023 Chronic Other circulatory disease (2 sources) Raynaud's syndrome without gangrene; Translations: [Raynaud's syndrome] Onset: 10-18-2022 07-22-2023 Chronic Other circulatory disease (2 sources) Vascular disorder of extremity; Translations: [Disorder of arteries and arterioles, unspecified] 06-18-2023 Chronic Other circulatory disease (1 source) Thromboangiitis obliterans; 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]] 06-22-2023 Chronic Other circulatory disease (1 source) 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]; 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]] 07-22-2023 Chronic Other lower respiratory disease (2 sources) Parietoalveolar pneumopathy; 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, unspecified] Chronic Other lower respiratory disease (1 source) Pulmonary fibrosis, unspecified; Translations: [Pulmonary fibrosis, unspecified] Onset: 12-10-2022 Chronic Other lower respiratory disease (2 sources) Nodule of lung; Translations: [Solitary pulmonary nodule] Episodic Other screening for suspected conditions (not mental disorders or infectious disease) (2 sources) Radiology result abnormal; Translations: [Abnormal findings on diagnostic imaging of other specified body structures] Chronic Pulmonary heart disease (1 source) Primary pulmonary hypertension; Translations: [Primary pulmonary hypertension] Onset: 07-22-2023 Chronic Residual codes; unclassified (1 source) Pain; Translations: [Pain, unspecified] 07-07-2023 Episodic Residual codes; unclassified (1 source) Tobacco user; Translations: [Tobacco use] 07-07-2023 Episodic Residual codes; unclassified (1 source) Pain, unspecified; Translations: [Generalized pain] 07-22-2023 Episodic Residual codes; unclassified (1 source) Tobacco use; Translations: [Tobacco use disorder] 07-22-2023 Episodic Substance-related disorders (4 sources) Tobacco user; Translations: [Nicotine dependence, unspecified, uncomplicated] Chronic Systemic lupus erythematosus and connective tissue disorders (1 source) Systemic involvement of connective tissue, unspecified; Translations: [Systemic involvement of connective tissue, unspecified] Onset: 12-17-2022 Chronic Unclassified (3 sources) CONTACT W/AND (SUSP) EXPOS COVID-19; Translations: [CONTACT W/AND (SUSP) EXPOS COVID-19] Onset: 07-15-2022 Unclassified (2 sources) Inflammatory disorder; Translations: [Inflammation] 06-22-2023 Viral infection (1 source) COVID-19; Translations: [COVID-19] Onset: 07-11-2022 Past or Other Problems Problem Classification Problem Date Documented Da te Episodic/Chronic Gangrene (6 sources) Gangrenous disorder; Translations: [Gangrene, not elsewhere classified] Onset: 06-18-2023 06-18-2023 Episodic Other lower respiratory disease (3 sources) Solitary pulmonary nodule; Translations: [Solitary pulmonary nodule] Onset: 05-21-2023 Episodic Unclassified (1 source) CONTACT W/AND (SUSP) EXPOS COVID-19; Translations: [CONTACT W/AND (SUSP) EXPOS COVID-19] Onset: 07-13-2022 Results Test Name Value Interpretation Reference Range Facility [facility] echo transthoracicon [facility] echo transthoracic [facility] [place] [address] Echocardiogram Signed Patient: Ritchie Blair MR#: [id number] : 1975 Acct:[id number] Age/Sex: 47 / M ADM Date: 07/22/23 Loc: RT Room: Type: [facility] Attending Dr: Williams Coronado MD Ordering Provider: Williams Coronado MD Date of Service: 07/22/23/ [facility]: PULMONARY HYPERTENSION, PULMONARY FIBROSIS Copies to: MD Dat Mclean MD BSA: 2.1 m2 BP: 153/76 mmHg HR: 88 Reason For Study: PULMONARY HYPERTENSION, PULMONARY FIBROSIS History: HTN, HLD, Former Smoker, COVID Interpretation Summary Mild to moderate concentric left ventricular hypertrophy. Ejection Fraction = 60-65%. A variety of Doppler measurements indicate pseudonormalized left ventricular relaxation, which is associated with grade II/IV or mild to moderate diastolic dysfunction. No regional wall motion abnormalities noted. Trace aortic regurgitation. There is trace mitral regurgitation. There is mild tricuspid regurgitation. Right ventricular systolic pressure is consistent with mild to moderate pulmonary hypertension. Compared to prior study, there is no significant change. Procedure/Quality: A two-dimensional transthoracic echocardiogram with color flow and Doppler was performed. Left Ventricle: Mild to moderate concentric left ventricular hypertrophy. Left ventricular systolic function is normal. Ejection Fraction = 60-65%. A variety of Doppler measurements indicate pseudonormalized left ventricular relaxation, which is associated with grade II/IV or mild to moderate diastolic dysfunction. No regional wall motion abnormalities noted. Left Atrium: The left atrium appears normal in size. Right Atrium: The right atrium appears normal in size. Right Ventricle: The right ventricular size, thickness and function are normal. Aortic Valve: Trace aortic regurgitation. Mitral Valve: There is trace mitral regurgitation. Tricuspid Valve: There is mild tricuspid regurgitation. Right ventricular systolic pressure is consistent with mild to moderate pulmonary hypertension. Arteries: The aortic root is normal size. The aortic arch was visualized and no abnormalities were seen. No obvious aortic dissection could be visualized. Pericardium/Pleura: No pericardial effusion seen. There is no pleural effusion. IVC/Hepatic Viens: The inferior vena cava is normal in size, with a normal collapsibility index. Measurements with Normals IVSd: 1.4 cm (0.7-1.1 cm)LVIDd: 4.5 cm (3.7-5.4 cm) LVPWd: 1.2 cm (0.7-1.1 cm)LVIDs: 2.9 cm (2.3-3.6 cm) LA dimension: 4.2 cm (2.3-4.0 cm)Ao root diam: 3.3 cm(2.0-3.6 cm) asc Aorta Diam: 3.3 cm(2.1-3.4cm) Doppler with Normals RVSP(TR): 42.9 mmHg (18-35mmHg) LV V1 max: 190.9 cm/sec (0.7-1.7m/s)MV E max lux: 104.0 cm/sec(0.8-1.3m/s) MV A max lux: 84.2 cm/sec(0.0-0.0m/s) MV E/A: 1.2 (<1.5) MMode/2D Measurements Calculations RVDd: 2.6 cm FS: 34.8 % Ao root area: LVOT diam: 1.7 cm TAPSE: 2.9 cm EDV(Teich): 8.4 cm2 LVOT area: 2.4 cm2 RV S Lux: 91.0 ml 20.3 cm/sec ESV(Teich): 32.6 ml EF(Teich): 64.1 % __ LVLd ap4: 6.9 cm SV(MOD-sp4): LAV(MOD-sp4): LA A2 area: 19.4 cm2 EDV(MOD-sp4): 27.2 ml 34.4 ml 40.8 ml LAV(MOD-sp2): LA A4 area: 15.0 cm2 LVLs ap4: 5.6 cm 56.6 ml LA length (vol): ESV(MOD-sp4): 5.3 cm 13.6 ml LA vol: 46.3 ml EF(MOD-sp4): 66.7 % LA vol index: 21.8 ml/m2 Doppler Measurements Calculations MV max P.0 mmHgE/E' lat: 9.6 Ao V2 max: LV V1 max PG: E/E' med: 8.4 210.5 cm/sec 14.6 mmHg Ao max P.7 mmHg LV V1 mean PG: Ao mean P.0 mmHg 9.1 mmHg Ao V2 mean: LV V1 mean: 141.8 cm/sec 143.4 cm/sec Ao V2 VTI: 39.3 cm LV V1 VTI: 43.9 cm AD(I,D): 2.6 cm2 AD(V,D): 2.1 cm2 __ MR max lux: TV max PG: TR max lux: 382.2 cm/sec 38.0 mmHg 307.7 cm/sec MR max P.4 mmHg TR max P.9 mmHg RAP systole: 5.0 mmHg Transcribed By: SCV Performed At: 07/22/23 1033 Signed By: Dat Knox MD 07/22/23 1842 Normal [facility] Follow-Upon 06-30-2023 Follow-Up [id number] Jair Blair 1975 M Date Provider Department Center 06/30/2023 384-HIREN MAYERS [facility] [place] [facility] No family history on file Level of Service:41165 [place] OFFICE/OUTPATIENT ESTABLISHED MOD MDM 30-39 MIN Reason for Visit and Comments: Hospital Follow-up [832] - Raynaud's with finger gangrene. Normal [facility] 30on 06-19-2023 30 The patient is Moder ately Stable - Low risk of patient condition declining or worsening The patient's goals for the shift include rest The clinical goals for the shift include VSS, pain control Over the shift, the patient did make progress toward the following goals. Normal [facility] 30 Problem: Chronic Conditions and Co-morbidities Goal: Patient's chronic conditions and co-morbidity symptoms are monitored and maintained or improved Outcome: Progressing The patient is Moderately Stable - Low risk of patient condition declining or worsening The patient's goals for the shift include comfort/rest The clinical goals for the shift include VSS/Comfort Wounds remain dry and painful. Independent with care. Vasular as primary. Normal [facility] ANTI-XA (HEPARIN LEVEL)on HEPARIN UNFRACTIONATED (U/ML) IN PPP BY CHROMOGENIC METHOD 0.18 IU/mL Low 0.3-0.7 [facility] Comment on above: Result Comment: [place] roxaban and Apixaban will interfere with the anti Xa assay used to monitor UFH and LMWH. Performed By: #### L [id number] #### [facility] ([facility]) [address] [place] [address] HEPARIN UNFRACTIONATED (U/ML) IN PPP BY CHROMOGENIC METHOD 0.30 IU/mL Normal 0.3-0.7 [facility] Comment on above: Result Comment: [place] roxaban and Apixaban will interfere with the anti Xa assay used to monitor UFH and LMWH. Performed By: #### L [id number] #### [facility] ([facility]) [address] [place] [address] BASIC METABOLIC PANELon 11-2 Anion gap [Moles/Vol] 10 mmol/L Normal 7-20 [facility] Comment on above: Performed By: #### L [id number] #### [facility] ([facility]) [address] [place] [address] Calcium [Mass/Vol] 8.8 mg/dL Normal 8.6-10.3 [facility] Comment on above: Performed By: #### L [id number] #### [facility] [address] [place] [address] Chloride [Moles/Vol] 107 mmol/L Normal 98-107 [facility] Comment on above: Performed By: #### L [id number] #### [facility] ([facility]) [address] [place] [address] CO2 [Moles/Vol] 24 mmol/L Normal 21-31 [facility] Comment on above: Performed By: #### L [id number] #### [facility] [address] [place] [address] Creatinine [Mass/Vol] 0.86 mg/dL Normal 0.70-1.30 [facility] Comment on above: Performed By: #### L [id number] #### [facility] ([facility]) [address] [place] [address] GLOMERULAR FILTRATION RATE ML/MIN/1.73 SQ M.PREDICTED 106.1 mL/min/1.73m*2 Normal >60.0 [facility] Comment on above: Result Comment: The [facility]???s estimated glomerular filtration rate (eGFR) will no longer include consideration of race in its calculation. The National Kidney Foundation???s eGFR Task Force developed new recommendations for the estimation of the glomerular filtration rate in the [place] They recommend immediate implementation of the new equation refit without the race variable in all laboratories because the calculation does not include race. In addition to not including race in the calculation and reporting, it included diversity in its development, and has acceptable performance characteristics and potential consequences that do not disproportionately affect any one group of individuals. Performed By: #### L [id number] #### [facility] ([facility] [address] [place] [address] Glucose [Mass/Vol] 109 mg/dL High 70-100 [facility] Comment on above: Performed By: #### L [id number] #### [facility] ([facility]) [address] [place] [address] Potassium [Moles/Vol] 4.4 mmol/L Normal 3.5-5.1 [facility] Comment on above: Performed By: #### L [id number] #### [facility] ([facility]) [address] [place] [address] Sodium [Moles/Vol] 137 mmol/L Normal 136-145 [facility] Comment on above: Performed By: #### L [id number] #### [facility] ([facility]) [address] [place] [address] Urea nitrogen [Mass/Vol] 13 mg/dL Normal 7-25 [facility] Comment on above: Performed By: #### L [id number] #### [facility] ([facility]) [address] [place] [address] UREA NITROGEN/CREATININE (MASS RATIO) IN SER/PLAS 15.1 Normal [facility] Comment on above: Performed By: #### L [id number] #### [facility] ([facility]) [address] [place] [address] CBCon 06-19-2023 Erythrocyte distribution width (RBC) [Ratio] 13.8 % Normal 11.5-15.0 [facility] Comment on above: Performed By: #### L [id number] #### [facility] ([facility]) [address] [place] [address] ERYTHROCYTE MEAN CORPUSCULAR HEMOGLOBIN CONCENTRATION (G/DL) BY AUTOMATED 34.6 g/dL Normal 32.0-35.0 [facility] Comment on above: Performed By: #### L [id number] #### [facility] ([facility]) [address] [place] [address] Hematocrit (Bld) [Volume fraction] 40.5 % Normal 39.0-55.0 [facility] Comment on above: Performed By: #### L [id number] #### [facility] ([facility]) [address] [place] [address] Hemoglobin (Bld) [Mass/Vol] 14.0 g/dL Normal 13.0-17.0 [facility] Comment on above: Performed By: #### L [id number] #### [facility] ([facility]) [address] [place] [address] MCH (RBC) [Entitic mass] 33.9 pg High 27.0-33.0 [facility] Comment on above: Performed By: #### L [id number] #### [facility] ([facility]) [address] [place] [address] MCV (RBC) [Entitic vol] 98.1 fL High 82.0-98.0 [facility] Comment on above: Performed By: #### L [id number] #### [facility] ([facility]) [address] [place] [address] PLATELETS (10*3/UL) IN BLOOD AUTOMATED COUNT 261 10*3/uL Normal 150-400 [facility] Comment on above: Performed By: #### L [id number] #### [facility] ([facility]) [address] [place] [address] RBC (Bld) [#/Vol] 4.13 10*6/uL Low 4.20-5.70 [facility] Comment on above: Performed By: #### L [id number] #### [facility] ([facility]) [address] [place] [address] WBC (Bld) [#/Vol] 7.07 10*3/uL Normal 4.00-10.60 [facility] Comment on above: Performed By: #### L [id number] #### [facility] ([facility]) [address] [place] [address] DSon 06-19-2023 DS Admission Admitted 06/18/2023 for Bilateral finger gangrene Discharge Diagnosis Dry gangrene (CMS/HCC) Discharge Disposition Home or Self Care Discharge Medications Your medication list START taking these medications Instructions Last Dose Given Next Dose Due aspirin 81 mg EC tablet Start taking on: June 20, 2023 Take 1 tablet (81 mg) by mouth in the morning. Do not start before June 20, 2023. atorvastatin 40 mg tablet Commonly known as: Lipitor Take 1 tablet (40 mg) by mouth at bedtime. clopidogrel 75 mg tablet Commonly known as: Plavix Take 1 tablet (75 mg) by mouth in the morning. oxyCODONE 5 mg immediate release tablet Commonly known as: Roxicodone Take 1 tablet (5 mg) by mouth every 6 (six) hours if needed for severe pain (8-10 pain score) for up to 3 days. CONTINUE taking these medications Instructions Last Dose Given Next Dose Due atenolol 100 mg tablet Commonly known as: Tenormin NIFEdipine CC 60 mg 24 hr tablet Commonly known as: Adalat CC omeprazole OTC 20 mg EC tablet Commonly known as: PriLOSEC OTC sertraline 100 mg tablet Commonly known as: Zoloft varenicline 1 mg tablet Commonly known as: Chantix Where to Get Your Medications These medications were sent to [facility]/pharmacy #[id number] [place] [address] aspirin 81 mg EC tablet atorvastatin 40 mg tablet clopidogrel 75 mg tablet oxyCODONE 5 mg immediate release tablet Activity Normal activity as tolerated Diet Continue on the same type of diet and foods as you were eating before your admission. Drink plenty of water. Allergies Patient has no known allergies. Hospital Course Ritchie Blair is a 47 y.o. male past medical history of Raynaud's phenomenon and hypertension presents as a transfer from outside hospital for dry gangrene of the left small fingertip and right long fingertip. He was started on aspirin, statin, and heparin. CTA of bilateral upper extremities demonstrated no major occlusions. He had CARLOS which were also without abnormalities . His fingertips remained unchanged and he was discharged home with instructions to quit smoking, continue medical therapy with DAPT, statin, CCB, and close followup with rheumatology. Pertinent Physical Exam At Time of Discharge Physical Exam Constitutional: General: He is not in acute distress. Appearance: He is not ill-appearing. Cardiovascular: Rate and Rhythm: Normal rate and regular rhythm. Pulses: Normal pulses. Radial pulses are 2+ on the right side and 2+ on the left side. Dorsalis pedis pulses are 2+ on the right side and 2+ on the left side. Posterior tibial pulses are 2+ on the right side and 2+ on the left side. Pulmonary: Effort: Pulmonary effort is normal. No respiratory distress. Abdominal: General: There is no distension. Palpations: Abdomen is soft. Tenderness: There is no abdominal tenderness. Musculoskeletal: General: No swelling. Right lower leg: No edema. Left lower leg: No edema. Skin: General: Skin is warm and dry. Capillary Refill: Capillary refill takes less than 2 seconds. Comments: Dry gangrene over the distal tip of the left small finger, distal digit is erythematous and mildly edematous, exquisitely tender to palpation. Small area of dry scaling near nail fold of right middle finger Neurological: General: No focal deficit present. Mental Status: He is alert and oriented to person, place, and time. Lab Results Nutrition Screen Issues Requiring Follow-Up F/U with rheumatology Outpatient Follow-Up No future appointments. Test Results Pending At Discharge Pending Labs Order Current Status ANASTASIIA In process C-reactive protein In process Rheumatoid factor In process Normal [facility] 30on 06-18-2023 30 The patient is Moder ately Stable - Low risk of patient condition declining or worsening The patient's goals for the shift include comfort, food The clinical goals for the shift include stable vitals Over the shift, the patient did make progress toward the following goals. Problem: Skin/Tissue Integrity - Adult Goal: Skin integrity remains intact Outcome: Progressing Flowsheets (Taken 06/18/2023 1524) Skin integrity remains intact: Monitor for areas of redness and/or skin breakdown Goal: Incisions, wounds, or drain sites healing without S/S of infection Outcome: Progressing Flowsheets (Taken 06/18/2023 1524) Incisions, wounds, or drain sites healing without sign and symptoms of infection: ADMISSION and DAILY: Assess and document risk factors for pressure ulcer development TWICE DAILY: Assess and document skin integrity TWICE DAILY: Assess and document dressing/incision, wound bed, drain sites and surrounding tissue Implement wound care per orders Problem: Infection - Adult Goal: Absence of infection at discharge Outcome: Progressing Flowsheets (Taken 06/18/2023 1524) Absence of infection at discharge: Assess and monitor for signs and symptoms of infection Monitor all insertion sites i.e., indwelling lines, tubes and drains Normal [facility] ANAon 06-18-2023 ANASTASIIA PATTERN Homogenous and speckled Normal [facility] Comment on above: Performed By: #### L [id number] #### [facility] ([facility] [address] [place] [address] ANASTASIIA TITER 1:640 High <=1:40 [facility] Comment on above: Result Comment: Test performed using [employer] IFA ANASTASIIA Hep-2 Test, a pre-standardized assay designed for the qualitative and semi-quantitative detection of antinuclear antibodies. Performed By: #### L [id number] #### [facility] ([facility]) [address] [place] [address] ANTI-XA (HEPARIN LEVEL)on HEPARIN UNFRACTIONATED (U/ML) IN PPP BY CHROMOGENIC METHOD 0.41 IU/mL Normal 0.3-0.7 [facility] Comment on above: Result Comment: [place] roxaban and Apixaban will interfere with the anti Xa assay used to monitor UFH and LMWH. Performed By: #### L [id number] #### [facility] ([facility]) [address] [place] [address] HEPARIN UNFRACTIONATED (U/ML) IN PPP BY CHROMOGENIC METHOD >1.00 Critically high 0.3-0.7 [facility] Comment on above: Order Comment: Anti- Xa heparin level added per protocol. Actual Anti-Xa heparin level for pharmacy use = 1.46 international {unit/units:[id number]} /mL Result Comment: [place] roxaban and Apixaban will interfere with the anti Xa assay used to monitor UFH and LMWH. Performed By: #### L [id number] #### [facility] ([facility]) [address] [place] [address] APTTon 06-18-2023 ACTIVATED PARTIAL THROMBOPLASTIN TIME IN PPP BY COAGULATION ASSAY >200.0 Critically high 25.0-35.0 [facility] Comment on above: Order Comment: Basel ine aPTT before initiating heparin infusion. Result Comment: Clin ical significance of the APTT is questionable in the presence of heparin. Performed By: #### L [id number] #### [facility] ([facility]) [address] [place] [address] Activated partial thrombopla stin time (aPTT) in platelet poor plasma by coagulation aOrdered By: Williams Krause on 06-18-2023 aPTT Coag (PPP) [Time] 28.0 s 25.1-36.5 [facility] Comment on above: A hematocrit value g reater than 55% may lead to inaccurate results in coagulation testing. Patients having hematocrit values >55% require a special collection tube for coagulation studies. Please contact the laboratory at [phone] for redraw instructions. Basic Metabolic Panelon 05-27 Anion gap [Moles/Vol] Not performed Normal 6.0-15.0 [facility] Comment on above: Performed By: #### B MP, PTT, PT, CBC ####[facility] [place] [address] [facility] Calcium [Mass/Vol] 8.5 mg/dL Low 8.6-10.3 [facility] Comment on above: Performed By: #### B MP, PTT, PT, CBC ####[facility] [place] [address] [facility] Chloride [Moles/Vol] 106 mmol/L Normal 98-107 [facility] Comment on above: Performed By: #### B MP, PTT, PT, CBC ####[facility] [place] [address] [facility] CO2 [Moles/Vol] 19.2 mmol/L Low 21.0-31.0 [facility] Comment on above: Performed By: #### B MP, PTT, PT, CBC ####[facility] [place] [address] [facility] Creatinine [Mass/Vol] 0.94 mg/dL Normal 0.70-1.30 [facility] Comment on above: Performed By: #### B MP, PTT, PT, CBC ####[address] [place] [address] [facility] Creatinine Clr Calc Pharmacy 104.34 Normal [facility] Comment on above: Result Comment: PERF ORMED BY: [facility] [address] [place] [address] PATHOLOGIST [employer] SYMONE MACHADO M.D. Performed By: #### B MP, PTT, PT, CBC ####[address] [place] [address] [facility] GFR/1.73 sq M.predicted MDRD (S/P/Bld) [Vol rate/Area] mL/min/{1.73_m2} Normal [facility] Comment on above: Performed By: #### B MP, PTT, PT, CBC ####[place] [id number] [facility] Glucose [Mass/Vol] 119 mg/dL High 70-100 [facility] Comment on above: Result Comment: [facility] Glucose Reference Range is dependent on time and content of last meal. Glucose of more than 200 mg/dL in a nonstressed, ambulatory subject supports the diagnosis of Diabetes Mellitus. ADA recommended reference range Performed By: #### B MP, PTT, PT, CBC ####[address] [place] [address] [facility] Potassium Normal 3.5-5.1 [facility] Comment on above: Result Comment: Spec imen hemolyzed, redraw requested Results called at 0628 on 06/18/23 Performed By: #### B MP, PTT, PT, CBC ####[address] [place] [address] [facility] Sodium [Moles/Vol] 134 mmol/L Low 136-145 [facility] Comment on above: Performed By: #### B MP, PTT, PT, CBC ####[address] [address] [facility] Urea nitrogen [Mass/Vol] 22 mg/dL Normal 7-25 [facility] Comment on above: Performed By: #### B MP, PTT, PT, CBC ####[address] [place] [address] [facility] Basophils Auto (Bld) [#/Vol] Ordered By: Williams Krause on 06-18-2023 Basophils (Bld) [#/Vol] 0.1 10*3/uL 0.0-0.2 [facility] Basophils/100 WBC Auto (Bld) Ordered By: Williams Krause on 06-18-2023 Basophils/100 WBC (Bld) 1.3 % . [facility] C reactive protein [Mass/vol ume] in Serum or PlasmaOrdered By: Williams Krause on 06-18-2023 CRP [Mass/Vol] < 0.5 mg/dL 0.0-0.5 [facility] C-REACTIVE PROTEINon 023 C REACTIVE PROTEIN (MG/L) IN SER/PLAS <0.1 Normal 0.0-7.0 [facility] Comment on above: Performed By: #### L [id number] #### [facility] ([facility]) [address] [place] [address] C-Reactive Proteinon 023 CRP [Mass/Vol] mg/L Normal 0.0-0.5 [facility] Comment on above: Result Comment: PERF ORMED BY: [facility] [address] [place] [id number] PATHOLOGIST [employer] SYMONE MACHADO M.D. Performed By: #### E SR, CRP ####[address] [place] [address] [facility] CBCon 06-18-2023 Erythrocyte distribution width (RBC) [Ratio] 13.7 % Normal 11.5-15.0 [facility] Comment on above: Performed By: #### L [id number] #### [facility] ([facility]) [address] [place] [address] ERYTHROCYTE MEAN CORPUSCULAR HEMOGLOBIN CONCENTRATION (G/DL) BY AUTOMATED 37.4 g/dL High 32.0-35.0 [facility] Comment on above: Performed By: #### L [id number] #### [facility] ([facility]) [address] [place] [address] Hematocrit (Bld) [Volume fraction] 38.8 % Low 39.0-55.0 [facility] Comment on above: Performed By: #### L [id number] #### [facility] ([facility]) [address] [place] [address] Hemoglobin (Bld) [Mass/Vol] 14.5 g/dL Normal 13.0-17.0 [facility] Comment on above: Performed By: #### L [id number] #### [facility] ([facility]) [address] [place] [address] MCH (RBC) [Entitic mass] 35.8 pg High 27.0-33.0 [facility] Comment on above: Performed By: #### L [id number] #### [facility] ([facility]) [address] [place] [address] MCV (RBC) [Entitic vol] 95.8 fL Normal 82.0-98.0 [facility] Comment on above: Performed By: #### L [id number] #### [facility] ([facility]) [address] [place] [address] PLATELETS (10*3/UL) IN BLOOD AUTOMATED COUNT 279 10*3/uL Normal 150-400 [facility] Comment on above: Performed By: #### L [id number] #### [facility] ([facility]) [address] [place] [address] RBC (Bld) [#/Vol] 4.05 10*6/uL Low 4.20-5.70 [facility] Comment on above: Performed By: #### L [id number] #### [facility] ([facility]) [address] [place] [address] WBC (Bld) [#/Vol] 8.35 10*3/uL Normal 4.00-10.60 [facility] Comment on above: Performed By: #### L [id number] #### [facility] ([facility]) [address] [place] [address] COMPREHENSIVE METABOLIC PANE Angel 06-18-2023 Albumin [Mass/Vol] 3.6 g/dL Normal 3.5-5.7 [facility] Comment on above: Performed By: #### L [id number] #### [facility] ([facility]) [address] [place] [address] ALP [Catalytic activity/Vol] 83 U/L Normal 34-104 [facility] Comment on above: Performed By: #### L [id number] #### [facility] ([facility]) [address] [place] [address] ALT [Catalytic activity/Vol] 28 U/L Normal 7-52 [facility] Comment on above: Performed By: #### L [id number] #### [facility] ([facility]) [address] [place] [address] Anion gap [Moles/Vol] 14 mmol/L Normal 7-20 [facility] Comment on above: Performed By: #### L [id number] #### [facility] ([facility]) [address] [place] [address] AST [Catalytic activity/Vol] 26 U/L Normal 13-39 [facility] Comment on above: Performed By: #### L [id number] #### [facility] ([facility]) [address] [place] [address] Bilirubin [Mass/Vol] 0.3 mg/dL Normal 0.3-1.0 [facility] Comment on above: Performed By: #### L [id number] #### [facility] ([facility]) [address] [place] [address] Calcium [Mass/Vol] 8.7 mg/dL Normal 8.6-10.3 [facility] Comment on above: Performed By: #### L [id number] #### [facility] ([facility]) [address] [place] [address] Chloride [Moles/Vol] 105 mmol/L Normal 98-107 [facility] Comment on above: Performed By: #### L [id number] #### [facility] ([facility]) [address] [place] [address] CO2 [Moles/Vol] 23 mmol/L Normal 21-31 [facility] Comment on above: Performed By: #### L [id number] #### [facility] ([facility]) [address] [place] [address] Creatinine [Mass/Vol] 1.00 mg/dL Normal 0.70-1.30 [facility] Comment on above: Performed By: #### L [id number] #### [facility] ([facility]) [address] [place] [address] GLOMERULAR FILTRATION RATE ML/MIN/1.73 SQ M.PREDICTED 92.3 mL/min/1.73m*2 Normal >60.0 [facility] Comment on above: Result Comment: The [facility]???s estimated glomerular filtration rate (eGFR) will no longer include consideration of race in its calculation. The National Kidney Foundation???s eGFR Task Force developed new recommendations for the estimation of the glomerular filtration rate in the [place] They recommend immediate implementation of the new equation refit without the race variable in all laboratories because the calculation does not include race. In addition to not including race in the calculation and reporting, it included diversity in its development, and has acceptable performance characteristics and potential consequences that do not disproportionately affect any one group of individuals. Performed By: #### L [id number] #### [facility] ([facility]) [address] [place] [address] Glucose [Mass/Vol] 104 mg/dL High 70-100 [facility] Comment on above: Performed By: #### L [id number] #### [facility] ([facility]) [address] [place] [address] Potassium [Moles/Vol] 4.7 mmol/L Normal 3.5-5.1 [facility] Comment on above: Performed By: #### L [id number] #### [facility] ([facility]) [address] [place] [address] Protein [Mass/Vol] 6.1 g/dL Normal 6.0-8.3 [facility] Comment on above: Performed By: #### L [id number] #### [facility] ([facility]) [address] [place] [address] Sodium [Moles/Vol] 137 mmol/L Normal 136-145 [facility] Comment on above: Performed By: #### L [id number] #### [facility] ([facility]) [address] [place] [address] Urea nitrogen [Mass/Vol] 21 mg/dL Normal 7-25 [facility] Comment on above: Performed By: #### L [id number] #### [facility] ([facility]) [address] [place] [address] UREA NITROGEN/CREATININE (MASS RATIO) IN SER/PLAS 21.0 Normal [facility] Comment on above: Performed By: #### L [id number] #### [facility] ([facility]) [address] [place] [address] CTA UPPER EXTREMITY LEFT W A ND/OR WO IV CONTRASTon 06-18-2023 CTA UPPER EXTREMITY LEFT W AND/OR WO IV CONTRAST CTA UPPER EXTREMITY LEFT W AND/OR WO IV CONTRAST, CTA UPPER EXTREMITY RIGHT W AND/OR WO IV CONTRAST 06/18/2023 8:42 PM SIGNS AND SYMPTOMS: Buerger's syndrome. Thrombophlebitis. TECHNIQUE: CT angiography of the left and right upper extremity were obtained with intravenous contrast. Multiplanar, MIP, and volume rendered 3-D reformats were generated on a separate workstation and reviewed to further define anatomy and possible pathology. Low dose acquisition and reconstruction algorithms were utilized. COMPARISON: None. FINDINGS: Suboptimal contrast bolus timing with significant venous contamination and suboptimal angiographic phase timing. The visualized portions of the thoracic aorta are unremarkable. No intracranial aneurysm or large vessel occlusion. No stenosis in the carotid or vertebral arteries. Conventional three-vessel aortic arch. Left subclavian artery, left axillary and left brachial artery are patent. Again limitations in the contrast bolus timing to assess for radial and ulnar artery opacification. Given the limitations there does appear to be opacification to the level of the wrist. Right subclavian, axillary and brachial arteries are patent. Right radial and ulnar arteries are patent to the level of the wrist. Indeterminate patency of the hand arteries. No aggressive osseous lesions. Degenerative changes are present. IMPRESSION: Suboptimal CT angiography of the bilateral upper extremities secondary to contrast bolus timing and venous contamination. Given the limitations there is apparent opacification without stenosis or luminal irregularity in the bilateral radial and ulnar arteries to the level of the wrist. Some opacified arteries in the bilateral hands, but poor arterial enhancement hands. All CT scans at this facility use dose modulation, iterative reconstruction, and/or weight based dosing when appropriate to reduce radiation dose to as low as reasonably achievable. Electronically signed: Ahsan Birmingham M.D.. [facility] CTA UPPER EXTREMITY RIGHT W AND/OR WO IV CONTRASTon 06-18-2023 CTA UPPER EXTREMITY RIGHT W AND/OR WO IV CONTRAST CTA UPPER EXTREMITY LEFT W AND/OR WO IV CONTRAST, CTA UPPER EXTREMITY RIGHT W AND/OR WO IV CONTRAST 06/18/2023 8:42 PM SIGNS AND SYMPTOMS: Buerger's syndrome. Thrombophlebitis. TECHNIQUE: CT angiography of the left and right upper extremity were obtained with intravenous contrast. Multiplanar, MIP, and volume rendered 3-D reformats were generated on a separate workstation and reviewed to further define anatomy and possible pathology. Low dose acquisition and reconstruction algorithms were utilized. COMPARISON: None. FINDINGS: Suboptimal contrast bolus timing with significant venous contamination and suboptimal angiographic phase timing. The visualized portions of the thoracic aorta are unremarkable. No intracranial aneurysm or large vessel occlusion. No stenosis in the carotid or vertebral arteries. Conventional three-vessel aortic arch. Left subclavian artery, left axillary and left brachial artery are patent. Again limitations in the contrast bolus timing to assess for radial and ulnar artery opacification. Given the limitations there does appear to be opacification to the level of the wrist. Right subclavian, axillary and brachial arteries are patent. Right radial and ulnar arteries are patent to the level of the wrist. Indeterminate patency of the hand arteries. No aggressive osseous lesions. Degenerative changes are present. IMPRESSION: Suboptimal CT angiography of the bilateral upper extremities secondary to contrast bolus timing and venous contamination. Given the limitations there is apparent opacification without stenosis or luminal irregularity in the bilateral radial and ulnar arteries to the level of the wrist. Some opacified arteries in the bilateral hands, but poor arterial enhancement hands. All CT scans at this facility use dose modulation, iterative reconstruction, and/or weight based dosing when appropriate to reduce radiation dose to as low as reasonably achievable. Electronically signed: Ahsan Birmingham M.D.. Normal [facility] Calcium [Mass/volume] in Ser um or PlasmaOrdered By: Williams Krause on 06-18-2023 Calcium [Mass/Vol] 8.5 mg/dL 8.6-10.3 [facility] Carbon dioxide, total [Moles /volume] in Serum or PlasmaOrdered By: Williams Krause on 06-18-2023 CO2 [Moles/Vol] 19.2 mmol/L 21.0-31.0 [facility] Chloride [Moles/volume] in S akiko or PlasmaOrdered By: Williams Krause on 06-18-2023 Chloride [Moles/Vol] 106 mmol/L 98-107 [facility] Complete Blood Count Auto Di ffon 06-18-2023 Basophils (Bld) [#/Vol] 0.1 10*3/uL Normal 0.0-0.2 [facility] Comment on above: Result Comment: PERF ORMED BY: [facility] [address] [place] [address] PATHOLOGIST [employer] MA[employer]ER SYMONE MACHADO M.D. Performed By: #### B MP, PTT, PT, CBC ####[address] Basophils/100 WBC (Bld) 1.3 % Normal . [facility] Comment on above: Performed By: #### B MP, PTT, PT, CBC ####[address] Eosinophils (Bld) [#/Vol] 0.1 10*3/uL Normal 0.0-0.45 [facility] Comment on above: Performed By: #### B MP, PTT, PT, CBC ####[address] Eosinophils/100 WBC (Bld) 1.0 % Normal . [facility] Comment on above: Performed By: #### B MP, PTT, PT, CBC ####[address] Erythrocyte distribution width (RBC) [Ratio] 13.2 % Normal 12.0-14.8 [facility] Comment on above: Performed By: #### B MP, PTT, PT, CBC ####[address] Hematocrit (Bld) [Volume fraction] 41.1 % Normal 38.8-50.0 [facility] Comment on above: Performed By: #### B MP, PTT, PT, CBC ####[address] Hemoglobin (Bld) [Mass/Vol] 14.3 g/dL Normal 13.0-17.0 [facility] Comment on above: Performed By: #### B MP, PTT, PT, CBC ####[address] Lymphocytes (Bld) [#/Vol] 2.1 10*3/uL Normal 1.00-4.8 [facility] Comment on above: Performed By: #### B MP, PTT, PT, CBC ####[address] Lymphocytes/100 WBC (Bld) 33.9 % Normal . [facility] Comment on above: Performed By: #### B MP, PTT, PT, CBC ####[address] MCH (RBC) [Entitic mass] 33.7 pg Normal 27.5-35.2 [facility] Comment on above: Performed By: #### B MP, PTT, PT, CBC ####[address] MCV (RBC) [Entitic vol] 96.6 fL Normal 83.5-101 [facility] Comment on above: Performed By: #### B MP, PTT, PT, CBC ####[address] Mean Corpuscular HGB Conc 34.9 g/dL Normal 32.5-35.6 [facility] Comment on above: Performed By: #### B MP, PTT, PT, CBC ####[address] Monocytes (Bld) [#/Vol] 0.7 10*3/uL Normal 0.0-0.8 [facility] Comment on above: Performed By: #### B MP, PTT, PT, CBC ####[address] Monocytes/100 WBC (Bld) 19.18 % Normal 0.00-20.00 [facility] Comment on above: Performed By: #### B MP, PTT, PT, CBC ####[address] Monocytes/100 WBC (Bld) 10.5 % Normal . [facility] Comment on above: Performed By: #### B MP, PTT, PT, CBC ####[address] Neutrophils (Bld) [#/Vol] 3.3 10*3/uL Normal 1.8-7.7 [facility] Comment on above: Performed By: #### B MP, PTT, PT, CBC ####[address] Neutrophils/100 WBC (Bld) 53.3 % Normal . [facility] Comment on above: Performed By: #### B MP, PTT, PT, CBC ####[address] NRBC% 0.3 /100{WBC} Normal 0-0.5 [facility] Comment on above: Performed By: #### B MP, PTT, PT, CBC ####[address] Platelet mean volume (Bld) [Entitic vol] 7.7 fL Normal 6.6-10.1 [facility] Comment on above: Performed By: #### B MP, PTT, PT, CBC ####[address] Platelets (Bld) [#/Vol] 297 10*3/uL Normal 150-450 [facility] Comment on above: Performed By: #### B MP, PTT, PT, CBC ####[address] RBC (Bld) [#/Vol] 4.26 10*6/uL Normal 3.90-5.60 [facility] Comment on above: Performed By: #### B MP, PTT, PT, CBC ####[address] WBC (Bld) [#/Vol] 6.2 10*3/uL Normal 4.1-10.5 [facility] Comment on above: Performed By: #### B MP, PTT, PT, CBC ####[address] Creatinine [Mass/volume] in Serum or PlasmaOrdered By: Williams Krause on 06-18-2023 Creatinine [Mass/Vol] 0.94 mg/dL 0.70-1.30 [facility] ECG 12 lead ECGon 06-18-2023 ECG 12 lead ECG [facility] Main [place] [address] [place] [address] Electrocardiograph Report Signed Patient: Ritchie Blair MR#: [id number] : 1975 Acct:[id number] Age/Sex: 47 / M ADM Date: 06/18/23 Loc: ER Room: Type: [facility] ER Attending Dr: Ordering Provider: Williams Krause DO Date of Service: 06/18/23 ECG/ECG 12 lead ECG: Skin/Abscess/Foreign Body Copies to: Test Reason : Blood Pressure : 145/084 mmHG Vent. Rate : 077 BPM Atrial Rate : 077 BPM P-R Int : 160 ms QRS Dur : 088 ms QT Int : 382 ms P-R-T Axes : 067 078 028 degrees QTc Int : 432 ms Normal sinus rhythm Confirmed by Williams Krause DO ([id number]) on 06/18/2023 6:31:26 AM Referred By: Electronically Signed By:Williams Krause DO Transcribed By: MUS Signed By Williams Krause DO 0631 Normal [facility] Eosinophils Auto (Bld) [#/Vo l]Ordered By: Williams Krause on 06-18-2023 Eosinophils (Bld) [#/Vol] 0.1 10*3/uL 0.0-0.45 [facility] Eosinophils/100 WBC Auto (Bl d)Ordered By: Williams Krause on 06-18-2023 Eosinophils/100 WBC (Bld) 1.0 % . [facility] Erythrocyte Sedimentation Ra nellie 06-18-2023 ESR (Bld) [Velocity] 18 mm/h High 0-14 [facility] Comment on above: Result Comment: PERF ORMED BY: [facility] [address] [place] [address] PATHOLOGIST [employer]ASSOCK MAKER SYMONE MACHADO M.D. Performed By: #### C 4, THYGLOB AB, CH50, TPO, ANASTASIIA, CHROMATIN, C3 #### [facility] , Erythrocyte distribution wid th Auto (RBC) [Ratio]Ordered By: Williams Krause on 06-18-2023 Erythrocyte distribution width (RBC) [Ratio] 13.2 % 12.0-14.8 [facility] Erythrocyte sedimentation ra te by Photometric methodOrdered By: Williams Krause on 06-18-2023 ESR Photometric method (Bld) [Velocity] 18 mm/hr 0-14 [facility] Glucose [Mass/volume] in Ser um or PlasmaOrdered By: Williams Krause on 06-18-2023 Glucose [Mass/Vol] 119 mg/dL 70-100 [facility] Comment on above: ADA recommended refe rence rangeRandom Glucose Reference Range is dependent on time and content of last meal. Glucose of more than 200 mg/dL in a nonstressed, ambulatory subject supports the diagnosis of Diabetes Mellitus. HPon 06-18-2023 HP ------ -- Attestation signed by Hiren Mayers MD at 06/20/2023 5:01 PM I personally saw and examined the patient on the same date of service as resident/fellow. I discussed the findings and therapeutic plan with the resident/fellow . I agree with the documentation, except for any edits/updates below. Teaching Physician's Revisions: CTA, PVR, heparin gtt, ASA, CCB, Rhematology work up -- [facility] Vascular Surgery HISTORY & PHYSICAL Reason for Admission: Dry gangrene of bilateral fingers History of Present Illness: Ritchie Blair is a 47 y.o. male past medical history of Raynaud's phenomenon and hypertension presents as a transfer from outside hospital for dry gangrene of the left small fingertip and right long fingertip. Patient relays that he has had pain and swelling in these 2 fingertips for several weeks, completed a course of antibiotics due to prior concern for cellulitis. Patient states that as he was completing that course of antibiotics the distal aspect of the left small finger became dark and scaly. He has a similar, smaller lesion on the long finger of the right hand near the nail fold. He went to the outside hospital due to intractable pain at both of those fingertips. Currently denies fever/chills, chest pain, shortness of breath, nausea/vomiting, abdominal pain. Denies similar lesions elsewhere on his body. Reports a history of smoking, has been trying to cut down currently smokes a couple cigarettes every day. Denies alcohol denies other drug use. Review of Systems Constitutional: Negative for chills, fatigue and fever. Respiratory: Negative for cough and shortness of breath. Cardiovascular: Negative for chest pain, palpitations and leg swelling. Gastrointestinal: Negative for abdominal distention, nausea and vomiting. Endocrine: Positive for cold intolerance (bilateral hands). Skin: Positive for wound. Neurological: Negative for dizziness, syncope, weakness and headaches. Past Medical History: Diagnosis Date Hypertension Past Surgical History: Procedure Laterality Date CHOLECYSTECTOMY No Known Allergies Current Facility-Administered Medications: heparin (porcine) injection 2,200 Units, 25 Units/kg, intravenous, q6h PRN, Pooja Díaz MD heparin (porcine) injection 7,200 Units, 80 Units/kg, intravenous, Once, Pooja Díaz MD heparin infusion 100 units/mL in D5W, 0-28 Units/kg/hr, intravenous, Continuous, Pooja Díaz MD lactated Ringer's bolus 1,000 mL, 1,000 mL, intravenous, Once, Pooja Díaz MD Insert peripheral IV, , , Once AND Saline lock IV, , , Once AND sodium chloride flush 10 mL, 10 mL, intravenous, q8h PRN, Pooja Díaz MD Social History Socioeconomic History Marital status: Unknown Spouse name: Not on file Number of children: Not on file Years of education: Not on file Highest education level: Not on file Occupational History Not on file Tobacco Use Smoking status: Every Day Packs/day: 0.25 Types: Cigarettes Smokeless tobacco: Not on file Tobacco comments: Taking chantix Substance and Sexual Activity Alcohol use: Not on file Drug use: Not on file Sexual activity: Not on file Other Topics Concern Not on file Social History Narrative Not on file Social Determinants of Health Financial Resource Strain: Low Risk (06/18/2023) Overall Financial Resource Strain (CARDIA) Difficulty of Paying Living Expenses: Not hard at all Food Insecurity: Unknown (06/18/2023) Hunger Vital Sign Worried About Running Out of Food in the Last Year: Never true Ran Out of Food in the Last Year: Not on file Transportation Needs: Unknown (06/18/2023) PRAPARE - Transportation Lack of Transportation (Medical): No Lack of Transportation (Non-Medical): Not on file Physical Activity: Not on file Stress: Not on file Social Connections: Not on file Intimate Partner Violence: Unknown (06/18/2023) Humiliation, Afraid, Rape, and Kick questionnaire Fear of Current or Ex-Partner: No Emotionally Abused: Not on file Physically Abused: Not on file Sexually Abused: Not on file Housing Stability: Unknown (06/18/2023) Housing Stability Vital Sign Unable to Pay for Housing in the Last Year: Not on file Number of Places Lived in the Last Year: Not on file Unstable Housing in the Last Year: No No family history on file. Physical Exam: Vital Signs: Blood pressure 146/90, pulse 79, temperature 37.2 ???C (99 ???F), temperature source Temporal, resp. rate 18, height 1.829 m (6'), weight 89.6 kg (197 lb 8.5 oz), SpO2 98 %. Admission Weight: Weight: 89.6 kg (197 lb 8.5 oz) Physical Exam Constitutional: General: He is not in acute distress. Appearance: He is not ill-appearing. Cardiovascular: Rate and Rhythm: Normal ra (more content not included)... Normal [facility] Hematocrit Auto (Bld) [Volum e fraction]Ordered By: Williams Krause on 06-18-2023 Hematocrit (Bld) [Volume fraction] 41.1 % 38.8-50.0 [facility] Hemoglobin [Mass/volume] in BloodOrdered By: Williams Krause on 06-18-2023 Hemoglobin (Bld) [Mass/Vol] 14.3 g/dL 13.0-17.0 [facility] INR in Platelet poor plasma by Coagulation assayOrdered By: Williams Krause on 06-18-2023 INR Coag (PPP) [Relative time] 1.0 {INR} [facility] Comment on above: INR Therapeutic Rang e A) Pre- and Peroperative OAT started two weeks before surgery. NOT HIP SURGERY: 1.5 - 2.5 HIP SURGERY: 2 - 3B) Primary and secondary prevention of venous THROMBOSIS: 2 - 3C) Active venous thrombosis, pulmonary embolismand prevention of recurrent venous thrombosis: 2 - 3D) Prevention of arterial thromboembolismincluding patients with mechanical heart valves: 3 - 4.5 Leukocytes [#/volume] correc quentin for nucleated erythrocytes in Blood by Automated counOrdered By: Williams Krause on 06-18-2023 WBC corrected for nucl RBC Auto (Bld) [#/Vol] 6.2 10*3/uL 4.1-10.5 [facility] Lymphocytes Auto (Bld) [#/Vo l]Ordered By: Williams Krause on 06-18-2023 Lymphocytes (Bld) [#/Vol] 2.1 10*3/uL 1.00-4.8 [facility] Lymphocytes/100 WBC Auto (Bl d)Ordered By: Williams Krause on 06-18-2023 Lymphocytes/100 WBC (Bld) 33.9 % . [facility] MCH Auto (RBC) [Entitic mass ]Ordered By: Williams Krause on 06-18-2023 MCH (RBC) [Entitic mass] 33.7 pg 27.5-35.2 [facility] MCHC Auto (RBC) [Mass/Vol]Or dered By: Williams Krause on 06-18-2023 MCHC (RBC) [Mass/Vol] 34.9 g/dL 32.5-35.6 [facility] MCV Auto (RBC) [Entitic vol] Ordered By: Williams Krause on 06-18-2023 MCV (RBC) [Entitic vol] 96.6 fL 83.5-101 [facility] Monocyte distribution width [Entitic volume] in Blood by AutomatedOrdered By: Williams Krause on 06-18-2023 Monocyte distribution width Auto (Bld) [Entitic vol] 19.18 % 0.00-20.00 [facility] Monocytes Auto (Bld) [#/Vol] Ordered By: Williams Krause on 06-18-2023 Monocytes (Bld) [#/Vol] 0.7 10*3/uL 0.0-0.8 [facility] Monocytes/100 WBC Auto (Bld) Ordered By: Williams Krause on 06-18-2023 Monocytes/100 WBC (Bld) 10.5 % . [facility] Neutrophils Auto (Bld) [#/Vo l]Ordered By: Williams Krause on 06-18-2023 Neutrophils (Bld) [#/Vol] 3.3 10*3/uL 1.8-7.7 [facility] Neutrophils/100 WBC Auto (Bl d)Ordered By: Williams Krause on 06-18-2023 Neutrophils/100 WBC (Bld) 53.3 % . [facility] No Panel InformationOrdered By: Williams Krause on 06-18-2023 Estimated GFR (CKD-EPI) > 60.0 mL/Min [facility] Creatinine Clearance (Chem 104.34 [facility] Nucleated erythrocytes [Pres ence] in Blood by Automated countOrdered By: Williams Krause on 06-18-2023 Nucleated RBC Auto Ql (Bld) 0.3 /100{WBC} 0-0.5 [facility] Partial Thromboplastin Timeo n 06-18-2023 aPTT Coag (Bld) [Time] 28.0 s Normal 25.1-36.5 [facility] Comment on above: Result Comment: A he matocrit value greater than 55% may lead to inaccurate results in coagulation testing. Patients having hematocrit values >55% require a special collection tube for coagulation studies. Please contact the laboratory at [phone] for redraw instructions. PERFORMED BY: [facility] [address] [place] [address] PATHOLOGIST [employer]OCK MAKER SYMONE MACHADO M.D. Performed By: #### B MP, PTT, PT, CBC ####[facility] [id number] [place] [id number] [facility] Platelet mean volume Auto (B ld) [Entitic vol]Ordered By: Williams Krause on 06-18-2023 Platelet mean volume (Bld) [Entitic vol] 7.7 fL 6.6-10.1 [facility] Platelets Auto (Bld) [#/Vol] Ordered By: Williams Krause on 06-18-2023 Platelets (Bld) [#/Vol] 297 10*3/uL 150-450 [facility] Potassium [Moles/volume] in Serum or PlasmaOrdered By: Williams Krause on 06-18-2023 Potassium [Moles/Vol] 4.7 mmol/L 3.5-5.1 [facility] Prothrombin Time INRon 06-18 INR Coag (PPP) [Relative time] 1.0 {INR} Normal [facility] Comment on above: Result Comment: INR Therapeutic Range A) Pre- and Peroperative OAT started two weeks before surgery. NOT HIP SURGERY: 1.5 - 2.5 HIP SURGERY: 2 - 3 B) Primary and secondary prevention of venous THROMBOSIS: 2 - 3 C) Active venous thrombosis, pulmonary embolism and prevention of recurrent venous thrombosis: 2 - 3 D) Prevention of arterial thromboembolism including patients with mechanical heart valves: 3 - 4.5 Performed By: #### B MP, PTT, PT, CBC ####[facility] [id number] [place] [id number] [facility] PT Coag (PPP) [Time] 12.2 s Normal 9.0-12.9 [facility] Comment on above: Result Comment: A he matocrit value greater than 55% may lead to inaccurate results in coagulation testing. Patients having hematocrit values >55% require a special collection tube for coagulation studies. Please contact the laboratory at [phone] for redraw instructions. Performed By: #### B MP, PTT, PT, CBC ####[facility] [id number] [place] [address] [facility] Prothrombin time (PT)Ordered By: Williams Krause on 06-18-2023 PT Coag (PPP) [Time] 12.2 s 9.0-12.9 [facility] Comment on above: A hematocrit value g reater than 55% may lead to inaccurate results in coagulation testing. Patients having hematocrit values >55% require a special collection tube for coagulation studies. Please contact the laboratory at [phone] for redraw instructions. RBC Auto (Bld) [#/Vol]Ordere d By: Williams Krause on 06-18-2023 RBC (Bld) [#/Vol] 4.26 10*6/uL 3.90-5.60 [facility] RHEUMATOID FACTORon 06-18-20 23 Rheumatoid factor Qn [IU]/mL Normal 0-20 [facility] Comment on above: Performed By: #### L [id number] #### [facility] ([facility]) [address] [place] [address] Redraw Potassiumon 3 Potassium [Moles/Vol] 4.7 mmol/L Normal 3.5-5.1 [facility] Comment on above: Result Comment: PERF ORMED BY: [address] [address] PATHOLOGIST [employer] MAK[employer] SYMONE MACHADO M.D. Performed By: #### C 4, THYGLOB AB, CH50, TPO, ANASTASIIA, CHROMATIN, C3 #### [facility] , SEDIMENTATION RATEon 023 SEDIMENTATION RATE, ERYTHROCYTE 4 mm/hr Normal <=10 [facility] Comment on above: Performed By: #### L [id number] #### [facility] ([facility]) [address] [place] [address] Serum or plasma anion gap de terminationOrdered By: Williams Krause on 06-18-2023 Anion gap [Moles/Vol] TNP [facility] Comment on above: Test not performed Sodium [Moles/volume] in Ser um or PlasmaOrdered By: Williams Krause on 06-18-2023 Sodium [Moles/Vol] 134 mmol/L 136-145 [facility] Urea nitrogen [Mass/volume] in Serum or PlasmaOrdered By: Williams Krause on 06-18-2023 Urea nitrogen [Mass/Vol] 22 mg/dL 7-25 [facility] WBC Auto (Bld) [#/Vol]Ordere d By: Williams Krause on 06-18-2023 WBC (Bld) [#/Vol] 6.2 10*3/uL 4.1-10.5 [facility] CT chest wo con high reson 1 CT chest wo con high res [facility] Main [address] [address] [address] Scan Report Signed Patient: Ritchie Blair MR#: [id number] : 1975 Acct:[id number] Age/Sex: 47 / M ADM Date: 05/21/23 Loc: CT Room: Type: [facility] Attending Dr: Tony Lieberman MD Copies to: Tony Lieberman MD Ordering Provider: Tony Lieberman MD Date of Service: 05/21/23 CT/CT chest wo con high res: R91.1 CT CHEST WITHOUT IV CONTRAST: High-resolution protocol. CLINICAL HISTORY: Follow-up raynauds disease. COMPARISON: CT chest 12/10/2022 TECHNIQUE: Spiral images were obtained through the chest without IV contrast. High-resolution protocol was utilized with both supine and prone imaging. This CT exam was performed using one or more following dose reduction techniques: Automated exposure control, adjustment of the mA and/or kV according to patient size, or use of iterative reconstruction technique. FINDINGS: Mediastinum:Thoracic aorta appears normal in caliber. Pulmonary trunk appears nondilated. No pericardial effusion. Multiple prominent mediastinal lymph nodes, some which appear partially calcified extending into the hilar regions similar to the prior study. Largest lymph node measures 1 cm in short axis involving the subcarinal region. The esophagus is grossly unremarkable. Lungs:Emphysematous changes with biapical scarring. No lung consolidation, pneumothorax or pleural effusion. The 6 mm cavitary nodule involving the posterior basilar segment of the left lower lobe is unchanged in size and configuration. No new nodule is seen. No bronchiectasis, septal thickening or honeycombing to suggest underlying interstitial lung disease. Abd:No acute findings. Soft tissues/Bones: Soft tissues demonstrate no acute findings. Osseous structures demonstrate degenerative change. CT/CT chest wo con high res IMPRESSION: No significant change in chest findings compared to the prior study from 12/10/2022. There is a persistent cavitary nodule involving the left lower lobe measuring 6 mm with presumed reactive mediastinal and hilar lymphadenopathy. CT follow-up is recommended. Impression dictated by: Feliciano Rios Jr., D.O.05/21/2023 11:52 AM Dictation Location: [place] [address] Transcribed By: [facility] 05/21/23 1152 Dictated By: Feliciano Rios Jr, DO 05/21/23 1138 Signed By: 05/21/23 1152 Normal [facility] ANASTASIIA Antinuclear Antibodieson 12-17-2022 Antinuclear Abs, IFA Positive Critically abnormal . [facility] Comment on above: Result Comment: Nega tive <1:80 Borderline 1:80 Positive >1:80 Performed By: #### A NTIR, LUPANTCOAG, ADNA, SJOGRENS, CENTROME, ANASTASIIA, JO1, HISAB, [id number], HOFF ####[facility] , Centromere Pattern 1:320 High . [facility] Comment on above: Result Comment: ICAP nomenclature: AC-3 Performed By: #### A NTIR, LUPANTCOAG, ADNA, SJOGRENS, CENTROME, ANASTASIIA, JO1, HISAB, [id number], HOFF ####[facility] , Note 1 Normal . [facility] Comment on above: Result Comment: For more information about Hep-2 cell patterns use ANApatterns.org, the official website for the International Consensus on Antinuclear Antibody (ANASTASIIA) Patterns (ICAP). A positive ANASTASIIA result may occur in healthy individuals (low titer) or be associated with a variety of diseases. See interpretation chart which is not all inclusive: Pattern Antigen Detected Suggested Disease Association Homogeneous DNA(ds,ss), SLE - High titers Nucleosomes, Histones Drug-induced SLE Speckled Sm, DRAWING IN MACHINE TENDER HELPER, SCL-70, SLE,MCTD,PSS (diffuse form), SS-A/SS-B Sjogrens Nucleolar SCL-70, PM-1/SCL High titers Scleroderma, PM/DM Centromere Centromere PSS (limited form) w/Crest syndrome variable Nuclear Dot Sp100,m53-buarhs Primary Biliary Cirrhosis Nuclear GP210, Primary Biliary Cirrhosis Membrane aida A,B,C Performed at: - [facility] [id number] Mate Chief: Javier Dominguez PhD, Phone: [phone] Performed By: #### A NTIR, LUPANTCOAG, ADNA, SJOGRENS, CENTROME, ANASTASIIA, JO1, HISAB, [id number], HOFF ####[facility] , Anti-Centromere B Antibodies on 12-17-2022 Anti-Centromere B Antibodies <0.2 Normal 0.0-0.9 [facility] Comment on above: Result Comment: Perf ormed at: - [facility] [address] [id number] Mate Chief: Javier Dominguez PhD, Phone: [phone] Performed By: #### A NTIR, LUPANTCOAG, ADNA, SJOGRENS, CENTROME, ANASTASIIA, JO1, HISAB, [id number], HOFF ####[facility] , Anti-RNPon 12-17-2022 Anti-DRAWING IN MACHINE TENDER HELPER 0.2 Normal 0.0-0.9 [facility] Comment on above: Performed By: #### A NTIR, LUPANTCOAG, ADNA, SJOGRENS, CENTROME, ANASTASIIA, JO1, HISAB, [id number], HOFF ####[facility] , Anti-Hoff Antibodieson 11-24 Anti-Hoff Antibodies <0.2 Normal 0.0-0.9 [facility] Comment on above: Performed By: #### A NTIR, LUPANTCOAG, ADNA, SJOGRENS, CENTROME, ANASTASIIA, JO1, HISAB, [id number], HOFF ####[facility] , Anti-dsDNA(DBL)Abon 12-18-19 23 Anti-dsDNA(DBL)Ab 1 Normal 0-9 [facility] Comment on above: Result Comment: Nega tive <5 Equivocal 5 - 9 Positive >9 PERFORMED BY: [place] [address] [place] [address] PATHOLOGIST [employer]OCK MAKER SYMONE MACHADO M.D. Performed By: #### A NTIR, LUPANTCOAG, ADNA, SJOGRENS, CENTROME, ANASTASIIA, JO1, HISAB, [id number], HOFF ####[facility] , Histone Antibodieson 023 Histone Antibodies 0.3 Normal 0.0-0.9 [facility] Comment on above: Result Comment: Nega tive <1.0 Weak Positive 1.0 - 1.5 Moderate Positive 1.6 - 2.5 Strong Positive >2.5 Performed at: [address] [id number] Mate Chief: Cyrus Montenegro MD, Phone: [phone] Performed By: #### A NTIR, LUPANTCOAG, ADNA, SJOGRENS, CENTROME, ANASTASIIA, JO1, HISAB, [id number], HOFF ####[facility] , PATRICK-1 Antibodyon 12-17-2022 PATRICK-1 Antibody <0.2 Normal 0.0-0.9 [facility] Comment on above: Performed By: #### A NTIR, LUPANTCOAG, ADNA, SJOGRENS, CENTROME, ANASTASIIA, JO1, HISAB, [id number], HOFF ####[facility] , Lupus Anticoagulant Compon 0 12-17-2022 Dilute Prothrombin Time (dPt) 38.7 Normal 0.0-47.6 [facility] Comment on above: Performed By: #### A NTIR, LUPANTCOAG, ADNA, SJOGRENS, CENTROME, ANASTASIIA, JO1, HISAB, [id number], HOFF ####[facility] , dPT Confirm Ratio 1.03 Normal 0.00-1.34 [facility] Comment on above: Performed By: #### A NTIR, LUPANTCOAG, ADNA, SJOGRENS, CENTROME, ANASTASIIA, JO1, HISAB, [id number], HOFF ####[facility] , DRVVT Lupus 41.6 Normal 0.0-47.0 [facility] Comment on above: Performed By: #### A NTIR, LUPANTCOAG, ADNA, SJOGRENS, CENTROME, ANASTASIIA, JO1, HISAB, [id number], HOFF ####[facility] , Interpretation Comment: Normal . [facility] Comment on above: Result Comment: No l upus anticoagulant was detected. Performed at: - [facility] [id number] Mate Chief: Cyrus Montenegro MD, Phone: [phone] PERFORMED BY: [facility] [address] [place] [address] PATHOLOGIST HASSOCK MAKER SYMONE MACHADO M.D. Performed By: #### A NTIR, LUPANTCOAG, ADNA, SJOGRENS, CENTROME, ANASTASIIA, JO1, HISAB, [id number], HOFF ####[facility] , PTT-LA 41.5 Normal 0.0-43.5 [facility] Comment on above: Performed By: #### A NTIR, LUPANTCOAG, ADNA, SJOGRENS, CENTROME, ANASTASIIA, JO1, HISAB, [id number], HOFF ####[facility] , Thrombin Time 18.2 Normal 0.0-23.0 [facility] Comment on above: Performed By: #### A NTIR, LUPANTCOAG, ADNA, SJOGRENS, CENTROME, ANASTASIIA, JO1, HISAB, [id number], HOFF ####[facility] , Scleroderma 70 Antibodieson 12-17-2022 Scleroderma 70 Antibodies <0.2 Normal 0.0-0.9 [facility] Comment on above: Performed By: #### A NTIR, LUPANTCOAG, ADNA, SJOGRENS, CENTROME, ANASTASIIA, JO1, HISAB, [id number], HOFF ####[facility] , Sjogrens Anti-SSA/SSBon 11-24 SS-A/Ro Sjogrens Antibody <0.2 Normal 0.0-0.9 [facility] Comment on above: Performed By: #### A NTIR, LUPANTCOAG, ADNA, SJOGRENS, CENTROME, ANASTASIIA, JO1, HISAB, [id number], HOFF ####[facility] , SS-B/La Sjogrens Antibody 0.9 Normal 0.0-0.9 [facility] Comment on above: Performed By: #### A NTIR, LUPANTCOAG, ADNA, SJOGRENS, CENTROME, ANASTASIIA, JO1, HISAB, [id number], HOFF ####[facility] , CT chest wo con high reson 0 - [place] [address] CT Scan Report Signed Patient: Ritchie Blair MR#: [id number] 966 : 1975 Acct:[id number] Age/Sex: 47 / M ADM Date: 12/10/22 Loc: Room: Type: [facility] Attending Dr: Johnny Coronado MD Copies to: Williams Coronado MD Ordering Provider: Williams Coronado MD Date of Service: 12/10/22 CT/CT chest wo con high res: J84.10, I27.0, M35.9 CT CHEST WITHOUT IV CONTRAST: High-resolution protocol. CLINICAL HISTORY: History of pulmonary hypertension, rate not as and connective tissue disease. Tobacco use. COMPARISON: None TECHNIQUE: Spiral images were obtained through the chest without IV contrast. High-resolution protocol was utilized with both supine and prone imaging. This CT exam was performed using one or more following dose reduction techniques: Automated exposure control, adjustment of the mA and/or kV according to patient size, or use of iterative reconstruction technique. FINDINGS: Mediastinum:Thoracic aorta appears normal in caliber. Pulmonary trunk appears nondilated. No pleural effusion. No pathologically enlarged lymph nodes are seen. Multiple prominent mediastinal lymph nodes are noted some which appear partially calcified extending into the hilar regions, largest measuring 1 cm in short axis involving the subcarinal region. The esophagus is grossly unremarkable. Lungs:Emphysematous changes with biapical scarring. No consolidation, pneumothorax or pleural effusion. Mild diffuse bronchial wall thickening. A cavitary nodule is seen involving the posterior basilar segment of the left lower lobe measuring 6 mm in greatest axial dimension. No bronchiectasis, septal thickening or honeycombing to suggest underlying interstitial lung disease. Abd:No acute findings. Soft tissues/Bones: Visualized soft tissue surrounding the chest wall demonstrate no acute findings. Osseous structures demonstrate degenerative change. CT/CT chest wo con high res IMPRESSION: 6 mm cavitary nodule involving the posterior basilar segment of the left lower lobe. Finding is nonspecific and may relate to the patient's connective tissue disease or possibly an atypical infectious process. CT follow-up is recommended after therapy to ensure resolution. Prominent nonspecific mediastinal and hilar lymph nodes. Attention on follow-up is recommended. Emphysema. Impression dictated by: Feliciano Rios Jr. D.OTariq12/10/2022 1:35 PM Dictation Location: [place] [address] Transcribed By: PWS 12/10/22 1335 Dictated By: Feliciano Rios Jr, DO 12/10/22 1331 Signed By: 12/10/22 1335 Normal [facility] echo transthoracicon [facility] echo transthoracic [facility] Main [place] [address] [place], [place] [id number] Echocardiogram Signed Patient: Ritchie Blair MR#: [id number] : 1975 Acct:[id number] Age/Sex: 47 / M ADM Date: 12/10/22 Loc: Room: Type: [facility] Attending Dr: Johnny Coronado MD Ordering Provider: Williams Coronado MD Date of Service: 12/10/22/ [facility] tran[facility]: Systemic involvement of connective tissue Copies to: MD Carlotta Mclean MD BSA: 2.1 m2 BP: 152/92 mmHg HR: 73 Reason For Study: Systemic involvement of connective tissue Interpretation Summary Ejection Fraction = 55-60%. The left ventricular wall motion is normal. Mild to moderate concentric left ventricular hypertrophy. There is trace mitral regurgitation. There is trace tricuspid regurgitation. There is no comparison study available. Procedure/Quality: A two-dimensional transthoracic echocardiogram with color flow and Doppler was performed. Left Ventricle: The left ventricular size is normal. Mild to moderate concentric left ventricular hypertrophy. Ejection Fraction = 55-60%. The left ventricular wall motion is normal. Left Atrium: The left atrium appears normal in size. Right Atrium: The right atrium appears normal in size. Right Ventricle: The right ventricular size, thickness and function are normal. Aortic Valve: The aortic valve is normal in structure and function. No aortic regurgitation is present. Mitral Valve: The mitral valve is normal in structure and function. There is trace mitral regurgitation. Tricuspid Valve: The tricuspid valve is normal in structure and function. There is trace tricuspid regurgitation. Pulmonic Valve: The pulmonic valve is normal in structure and function. Arteries: The aortic root is normal size. Pericardium/Pleura: No pericardial effusion seen. There is no pleural effusion. IVC/Hepatic Viens: The inferior vena cava is normal in size, with a normal collapsibility index. Measurements with Normals IVSd: 1.5 cm (0.7-1.1 cm)LVIDd: 4.3 cm (3.7-5.4 cm) LVPWd: 1.3 cm (0.7-1.1 cm)LVIDs: 3.0 cm (2.3-3.6 cm) LA dimension: 4.4 cm (2.3-4.0 cm)Ao root diam: 3.2 cm(2.0-3.6 cm) asc Aorta Diam: 3.2 cm(2.1-3.4cm) Doppler with Normals RVSP(TR): 18.3 mmHg (18-35mmHg) LV V1 max: 107.1 cm/sec (0.7-1.7m/s)MV E max lux: 82.6 cm/sec(0.8-1.3m/s) MV A max lux: 65.8 cm/sec(0.0-0.0m/s) MV E/A: 1.3 (<1.5) MMode/2D Measurements Calculations RVDd: 2.6 cm FS: 30.0 % Ao root area: 7.9 [id number] ap4: 8.6 cm TAPSE: 3.0 cm EDV(Teich): EDV(MOD-sp4): 84.1 ml 129.0 ml ESV(Teich): LVLs ap4: 7.4 cm 35.7 ml ESV(MOD-sp4): EF(Teich): 57.6 % 45.8 ml EF(MOD-sp4): 64.5 % __ SV(MOD-sp4): LAV(MOD-sp4): LA A2 area: 20.1 cm2 83.2 ml 56.0 ml LAV(MOD-sp2): LA A4 area: 20.6 cm2 56.4 ml LA length (vol): 5.8 cm LA vol: 60.3 ml LA vol index: 28.9 ml/m2 Doppler Measurements Calculations MV dec time: E/E' lat: 9.3 MV dec slope: Ao V2 max: 0.16 sec E/E' med: 10.7 120.8 cm/sec 504.5 cm/sec2 Ao max P.8 mmHg Ao mean P.8 mmHg Ao V2 mean: 77.6 cm/sec Ao V2 VTI: 23.6 cm __ LV V1 max PG: TV max PG: TR max lux: 4.6 mmHg 15.0 mmHg 195.5 cm/sec LV V1 mean PG: TR max P.3 mmHg 2.5 mmHg RAP systole: 3.0 mmHg LV V1 mean: 73.8 cm/sec LV V1 VTI: 21.0 cm Transcribed By: DIAMOND Performed At: 12/10/22 0750 Signed By: Carlotta Ivy MD 12/10/22 1034 Normal [facility] ANASTASIIA Antinuclear Antibodieson 11-24-2022 Antinuclear Abs, IFA Positive Critically abnormal . [facility] Comment on above: Result Comment: Nega tive <1:80 Borderline 1:80 Positive >1:80 Performed By: #### C 4, THYGLOB AB, CH50, TPO, ANASTASIIA, CHROMATIN, C3 #### [facility] , Centromere Pattern 1:160 High . [facility] Comment on above: Result Comment: ICAP nomenclature: AC-3 Performed By: #### C 4, THYGLOB AB, CH50, TPO, ANASTASIIA, CHROMATIN, C3 #### [facility] , Homogeneous Pattern 1:160 High . [facility] Comment on above: Result Comment: ICAP nomenclature: AC-1 Performed By: #### C 4, THYGLOB AB, CH50, TPO, ANASTASIIA, CHROMATIN, C3 #### [facility] , Note 1 Normal . [facility] Comment on above: Result Comment: For more information about Hep-2 cell patterns use ANApatterns.org, the official website for the International Consensus on Antinuclear Antibody (ANASTASIIA) Patterns (ICAP). A positive ANASTASIIA result may occur in healthy individuals (low titer) or be associated with a variety of diseases. See interpretation chart which is not all inclusive: Pattern Antigen Detected Suggested Disease Association Homogeneous DNA(ds,ss), SLE - High titers Nucleosomes, Histones Drug-induced SLE Speckled Sm, DRAWING IN MACHINE TENDER HELPER, SCL-70, SLE,MCTD,PSS (diffuse form), SS-A/SS-B Sjogrens Nucleolar SCL-70, PM-1/SCL High titers Scleroderma, PM/DM Centromere Centromere PSS (limited form) w/Crest syndrome variable Nuclear Dot [id number] Primary Biliary Cirrhosis Nuclear GP210, Primary Biliary Cirrhosis Membrane aida A,B,C Performed at: [address] [id number] Mate Chief: Javier Dominguez PhD, Phone: [phone] Performed By: #### C 4, THYGLOB AB, CH50, TPO, ANASTASIIA, CHROMATIN, C3 #### [facility] , Activated partial thrombopla stin time (aPTT) in platelet poor plasma by coagulation aOrdered By: Williams Coronado on 11-24-2022 aPTT Coag (PPP) [Time] 27.6 s 25.1-36.5 [facility] Alanine aminotransferase [En zymatic activity/volume] in Serum or PlasmaOrdered By: Williams Coronado on 11-24-2022 ALT [Catalytic activity/Vol] 34 U/L 7-52 [facility] Albumin [Mass/volume] in Ser um or Plasma by Bromocresol green (BCG) dye binding methoOrdered By: Williams Coronado on 11-24-2022 Albumin BCG dye [Mass/Vol] 4.2 g/dL 3.5-5.7 [facility] Aldolaseon 11-24-2022 Aldolase 5.4 U/L Normal 3.3-10.3 [facility] Comment on above: Result Comment: Perf ormed at: [address] [id number] Mate Chief: Javier Dominguez PhD, Phone: [phone] PERFORMED BY: [facility] [address] [place] [address] PATHOLOGIST [employer]ASS[employer] MAKER SYMONE MACHADO M.D. Performed By: #### C K, T4F, CRP, ESR, CBC, CMP, TSH3 ####[facility] [id number] [place] [id number] [facility]#### RPR W RFX, ALDOLASE ####[facility] , Alkaline phosphatase [Enzyma tic activity/volume] in Serum or PlasmaOrdered By: Williams Coronado on 11-24-2022 ALP [Catalytic activity/Vol] 80 U/L 34-104 [facility] Antithyroglobulin Abon 11-24 Antithyroglobulin Ab <1.0 Normal 0.0-0.9 [facility] Comment on above: Result Comment: Thyr oglobulin Antibody measured by [employer] Methodology Performed at: - [facility] [id number] Mate Chief: Javier Dominguez PhD, Phone: [phone] Performed By: #### C 4, THYGLOB AB, CH50, TPO, ANASTASIIA, CHROMATIN, C3 #### [facility] , Aspartate aminotransferase [ Enzymatic activity/volume] in Serum or PlasmaOrdered By: Williams Coronado on 11-24-2022 AST [Catalytic activity/Vol] 27 U/L 13-39 [facility] Automated erythrocytes count in urine sediment (number/area)Ordered By: Williams Coronado on 11-24-2022 RBC Auto (Urine sed) [#/Area] None seen [HPF] 0-4 [facility] Automated leukocytes count i n urine sediment (number/area)Ordered By: Williams Coronado on 11-24-2022 WBC Auto (Urine sed) [#/Area] None seen [HPF] 0-4 [facility] Basophils Auto (Bld) [#/Vol] Ordered By: Williams Coronado on 11-24-2022 Basophils (Bld) [#/Vol] 0.1 10*3/uL 0.0-0.2 [facility] Basophils/100 WBC Auto (Bld) Ordered By: Williams Coronado on 11-24-2022 Basophils/100 WBC (Bld) 0.6 % . [facility] Bilirubin Test strip Ql (U)O rdered By: Williams Coronado on 11-24-2022 Bilirubin Ql (U) Negative Negative [facility] Bilirubin.total [Mass/volume ] in Serum or PlasmaOrdered By: Williams Coronado on 11-24-2022 Bilirubin [Mass/Vol] 0.4 mg/dL 0.3-1.0 [facility] C reactive protein [Mass/vol ume] in Serum or PlasmaOrdered By: Williams Coronado on 11-24-2022 CRP [Mass/Vol] < 0.5 mg/dL 0.0-0.5 [facility] C-Reactive Proteinon 023 CRP [Mass/Vol] mg/L Normal 0.0-0.5 [facility] Comment on above: Performed By: #### C K, T4F, CRP, ESR, CBC, CMP, TSH3 ####[facility] [address] [place], [place] [address]#### RPR W RFX, ALDOLASE ####[facility] , Calcium [Mass/volume] in Ser um or PlasmaOrdered By: Williams Coronado on 11-24-2022 Calcium [Mass/Vol] 9.0 mg/dL 8.6-10.3 [facility] Carbon dioxide, total [Moles /volume] in Serum or PlasmaOrdered By: Williams Coronado on 11-24-2022 CO2 [Moles/Vol] 25.7 mmol/L 21.0-31.0 [facility] Chloride [Moles/volume] in S akiko or PlasmaOrdered By: Williams Coronado on 11-24-2022 Chloride [Moles/Vol] 103 mmol/L 98-107 [facility] Chromatin Antibodyon 023 Chromatin Antibody <0.2 Normal 0.0-0.9 [facility] Comment on above: Result Comment: Perf ormed at: CB - [facility] [address] [id number] Mate Chief: Javier Dominguez PhD, Phone: [phone] PERFORMED BY: [facility] [address] [facility] [place] [address] PATHOLOGIST [employer] MAKER SYMONE MACHADO M.D. Performed By: #### C 4, THYGLOB AB, CH50, TPO, ANASTASIIA, CHROMATIN, C3 ####[facility] , Coagulation Profileon 2022 aPTT Coag (Bld) [Time] 27.6 s Normal 25.1-36.5 [facility] Comment on above: Result Comment: PERF ORMED BY: [facility] [address] [place] [address] PATHOLOGIST [employer] MAKER SYMONE MACHADO M.D. Performed By: #### P P ####[address]#### LUPANTCOAG ####[facility] , INR Coag (PPP) [Relative time] 0.9 {INR} Normal [facility] Comment on above: Result Comment: INR Therapeutic Range A) Pre- and Peroperative OAT started two weeks before surgery. NOT HIP SURGERY: 1.5 - 2.5 HIP SURGERY: 2 - 3 B) Primary and secondary prevention of venous THROMBOSIS: 2 - 3 C) Active venous thrombosis, pulmonary embolism and prevention of recurrent venous thrombosis: 2 - 3 D) Prevention of arterial thromboembolism including patients with mechanical heart valves: 3 - 4.5 Performed By: #### P P ####[address]#### LUPANTCOAG ####[facility] , PT Coag (PPP) [Time] 10.5 s Normal 9.0-12.9 [facility] Comment on above: Performed By: #### P P ####[place] [address] [place]#### LUPANTCOAG ####[facility] , Color Auto (U)Ordered By: Juan R Coronado on 11-24-2022 Color (U) Yellow Yellow [facility] Complement C3on 11-24-2022 Complement C3 104 mg/dL Normal 82-167 [facility] Comment on above: Result Comment: Perf ormed at: - [facility] [address] [id number] Mate Chief: Javier Dominguez PhD, Phone: [phone] Performed By: #### C 4, THYGLOB AB, CH50, TPO, ANASTASIIA, CHROMATIN, C3 #### [facility] , Complement C4on 11-24-2022 Complement C4 31 mg/dL Normal 12-38 [facility] Comment on above: Performed By: #### C 4, THYGLOB AB, CH50, TPO, ANASTASIIA, CHROMATIN, C3 #### [facility] , Complement Total (CH50)on Complement Total (CH50) 49 Normal >41 [facility] Comment on above: Result Comment: Age Male Female 1 - 30 days Not Estab. Not Estab. 31 days - 6 months >32 >20 7 months - 17 years >39 >39 >17 years >41 >41 NOTE: The adult ( >17 years ) reference interval range is used to flag abnormals on this report. If the patient is 17 years old or younger, use the table above to determine out of range values. Performed at: [facility] [place] [address] Mate Chief: Javier Dominguez PhD, Phone: [phone] PERFORMED BY: [facility] [address] [place] [address] PATHOLOGIST [employer]OCK MAKER SYMONE MACHADO M.D. Performed By: #### C 4, THYGLOB AB, CH50, TPO, ANASTASIIA, CHROMATIN, C3 #### [facility] , Complete Blood Count Auto Di ffon 11-24-2022 Basophils (Bld) [#/Vol] 0.1 10*3/uL Normal 0.0-0.2 [facility] Comment on above: Performed By: #### C K, T4F, CRP, ESR, CBC, CMP, TSH3 ####[facility]#### RPR W RFX, ALDOLASE ####[facility] , Basophils/100 WBC (Bld) 0.6 % Normal . [facility] Comment on above: Performed By: #### C K, T4F, CRP, ESR, CBC, CMP, TSH3 ####[address]#### RPR W RFX, ALDOLASE ####[facility] , Eosinophils (Bld) [#/Vol] 0.1 10*3/uL Normal 0.0-0.45 [facility] Comment on above: Performed By: #### C K, T4F, CRP, ESR, CBC, CMP, TSH3 ####[address]#### RPR W RFX, ALDOLASE ####[facility] , Eosinophils/100 WBC (Bld) 1.2 % Normal . [facility] Comment on above: Performed By: #### C K, T4F, CRP, ESR, CBC, CMP, TSH3 ####[address]#### RPR W RFX, ALDOLASE ####[facility] , Erythrocyte distribution width (RBC) [Ratio] 13.9 % Normal 12.0-14.8 [facility] Comment on above: Performed By: #### C K, T4F, CRP, ESR, CBC, CMP, TSH3 ####[address]#### RPR W RFX, ALDOLASE ####[facility] , Hematocrit (Bld) [Volume fraction] 44.2 % Normal 38.8-50.0 [facility] Comment on above: Performed By: #### C K, T4F, CRP, ESR, CBC, CMP, TSH3 ####[address]#### RPR W RFX, ALDOLASE ####[facility] , Hemoglobin (Bld) [Mass/Vol] 14.9 g/dL Normal 13.0-17.0 [facility] Comment on above: Performed By: #### C K, T4F, CRP, ESR, CBC, CMP, TSH3 ####[address]#### RPR W RFX, ALDOLASE ####[facility] , Lymphocytes (Bld) [#/Vol] 2.8 10*3/uL Normal 1.00-4.8 [facility] Comment on above: Performed By: #### C K, T4F, CRP, ESR, CBC, CMP, TSH3 ####[address]#### RPR W RFX, ALDOLASE ####[facility] , Lymphocytes/100 WBC (Bld) 32.7 % Normal . [facility] Comment on above: Performed By: #### C K, T4F, CRP, ESR, CBC, CMP, TSH3 ####[address]#### RPR W RFX, ALDOLASE ####[facility] , MCH (RBC) [Entitic mass] 34.0 pg Normal 27.5-35.2 [facility] Comment on above: Performed By: #### C K, T4F, CRP, ESR, CBC, CMP, TSH3 ####[address]#### RPR W RFX, ALDOLASE ####[facility] , MCV (RBC) [Entitic vol] 101.0 fL Normal 83.5-101 [facility] Comment on above: Performed By: #### C K, T4F, CRP, ESR, CBC, CMP, TSH3 ####[address]#### RPR W RFX, ALDOLASE ####[facility] , Mean Corpuscular HGB Conc 33.6 g/dL Normal 32.5-35.6 [facility] Comment on above: Performed By: #### C K, T4F, CRP, ESR, CBC, CMP, TSH3 ####[address]#### RPR W RFX, ALDOLASE ####[facility] , Monocytes (Bld) [#/Vol] 0.9 10*3/uL High 0.0-0.8 [facility] Comment on above: Performed By: #### C K, T4F, CRP, ESR, CBC, CMP, TSH3 ####[address]#### RPR W RFX, ALDOLASE ####[facility] , Monocytes/100 WBC (Bld) 10.1 % Normal . [facility] Comment on above: Performed By: #### C K, T4F, CRP, ESR, CBC, CMP, TSH3 ####[address]#### RPR W RFX, ALDOLASE ####[facility] , Neutrophils (Bld) [#/Vol] 4.7 10*3/uL Normal 1.8-7.7 [facility] Comment on above: Performed By: #### C K, T4F, CRP, ESR, CBC, CMP, TSH3 ####[address]#### RPR W RFX, ALDOLASE ####[facility] , Neutrophils/100 WBC (Bld) 55.4 % Normal . [facility] Comment on above: Performed By: #### C K, T4F, CRP, ESR, CBC, CMP, TSH3 ####[address]#### RPR W RFX, ALDOLASE ####[facility] , NRBC% 0.1 /100{WBC} Normal 0-0.5 [facility] Comment on above: Performed By: #### C K, T4F, CRP, ESR, CBC, CMP, TSH3 ####[address]#### RPR W RFX, ALDOLASE ####[facility] , Platelet mean volume (Bld) [Entitic vol] 9.0 fL Normal 6.6-10.1 [facility] Comment on above: Performed By: #### C K, T4F, CRP, ESR, CBC, CMP, TSH3 ####[address]#### RPR W RFX, ALDOLASE ####[facility] , Platelets (Bld) [#/Vol] 217 10*3/uL Normal 150-450 [facility] Comment on above: Performed By: #### C K, T4F, CRP, ESR, CBC, CMP, TSH3 ####[address]#### RPR W RFX, ALDOLASE ####[facility] , RBC (Bld) [#/Vol] 4.38 10*6/uL Normal 3.90-5.60 [facility] Comment on above: Performed By: #### C K, T4F, CRP, ESR, CBC, CMP, TSH3 ####[address]#### RPR W RFX, ALDOLASE ####[facility] , WBC (Bld) [#/Vol] 8.5 10*3/uL Normal 4.1-10.5 [facility] Comment on above: Performed By: #### C K, T4F, CRP, ESR, CBC, CMP, TSH3 ####[address]#### RPR W RFX, ALDOLASE ####[facility] , Comprehensive Metabolic Pane angel 05-02-2023 Albumin [Mass/Vol] 4.2 g/dL Normal 3.5-5.7 [facility] Comment on above: Performed By: #### C K, T4F, CRP, ESR, CBC, CMP, TSH3 ####[address]#### RPR W RFX, ALDOLASE ####[facility] , Albumin/Globulin [Mass ratio] 1.4 {ratio} Normal [facility] Comment on above: Performed By: #### C K, T4F, CRP, ESR, CBC, CMP, TSH3 ####[address]#### RPR W RFX, ALDOLASE ####[facility] , ALP [Catalytic activity/Vol] 80 U/L Normal 34-104 [facility] Comment on above: Performed By: #### C K, T4F, CRP, ESR, CBC, CMP, TSH3 ####[address]#### RPR W RFX, ALDOLASE ####[facility] , ALT [Catalytic activity/Vol] 34 U/L Normal 7-52 [facility] Comment on above: Performed By: #### C K, T4F, CRP, ESR, CBC, CMP, TSH3 ####[address]#### RPR W RFX, ALDOLASE ####[facility] , Anion gap [Moles/Vol] 13.6 mmol/L Normal 6.0-15.0 [facility] Comment on above: Performed By: #### C K, T4F, CRP, ESR, CBC, CMP, TSH3 ####[address]#### RPR W RFX, ALDOLASE ####[facility] , AST [Catalytic activity/Vol] 27 U/L Normal 13-39 [facility] Comment on above: Performed By: #### C K, T4F, CRP, ESR, CBC, CMP, TSH3 ####[address]#### RPR W RFX, ALDOLASE ####[facility] , Bilirubin [Mass/Vol] 0.4 mg/dL Normal 0.3-1.0 [facility] Comment on above: Performed By: #### C K, T4F, CRP, ESR, CBC, CMP, TSH3 ####[address]#### RPR W RFX, ALDOLASE ####[facility] , Calcium [Mass/Vol] 9.0 mg/dL Normal 8.6-10.3 [facility] Comment on above: Performed By: #### C K, T4F, CRP, ESR, CBC, CMP, TSH3 ####[address]#### RPR W RFX, ALDOLASE ####[facility] , Chloride [Moles/Vol] 103 mmol/L Normal 98-107 [facility] Comment on above: Performed By: #### C K, T4F, CRP, ESR, CBC, CMP, TSH3 ####[address]#### RPR W RFX, ALDOLASE ####[facility] , CO2 [Moles/Vol] 25.7 mmol/L Normal 21.0-31.0 [facility] Comment on above: Performed By: #### C K, T4F, CRP, ESR, CBC, CMP, TSH3 ####[address]#### RPR W RFX, ALDOLASE ####[facility] , Creatinine [Mass/Vol] 0.96 mg/dL Normal 0.70-1.30 [facility] Comment on above: Performed By: #### C K, T4F, CRP, ESR, CBC, CMP, TSH3 ####[place] [address] [place]#### RPR W RFX, ALDOLASE ####[facility] , GFR/1.73 sq M.predicted MDRD (S/P/Bld) [Vol rate/Area] mL/min/{1.73_m2} Normal [facility] Comment on above: Performed By: #### C K, T4F, CRP, ESR, CBC, CMP, TSH3 ####[address]#### RPR W RFX, ALDOLASE ####[facility] , Globulin (S) [Mass/Vol] 3.0 g/dL Normal [facility] Comment on above: Performed By: #### C K, T4F, CRP, ESR, CBC, CMP, TSH3 ####[address]#### RPR W RFX, ALDOLASE ####[facility] , Glucose [Mass/Vol] 80 mg/dL Normal 70-100 [facility] Comment on above: Result Comment: [facility] Glucose Reference Range is dependent on time and content of last meal. Glucose of more than 200 mg/dL in a nonstressed, ambulatory subject supports the diagnosis of Diabetes Mellitus. ADA recommended reference range Performed By: #### C K, T4F, CRP, ESR, CBC, CMP, TSH3 ####[place] [address] [place]#### RPR W RFX, ALDOLASE ####[facility] , Potassium [Moles/Vol] 4.3 mmol/L Normal 3.5-5.1 [facility] Comment on above: Performed By: #### C K, T4F, CRP, ESR, CBC, CMP, TSH3 ####[place] [address] [place]#### RPR W RFX, ALDOLASE ####[facility] , Protein [Mass/Vol] 7.2 g/dL Normal 6.4-8.9 [facility] Comment on above: Performed By: #### C K, T4F, CRP, ESR, CBC, CMP, TSH3 ####[address]#### RPR W RFX, ALDOLASE ####[facility] , Sodium [Moles/Vol] 138 mmol/L Normal 136-145 [facility] Comment on above: Performed By: #### C K, T4F, CRP, ESR, CBC, CMP, TSH3 ####[address]#### RPR W RFX, ALDOLASE ####[facility] , Urea nitrogen [Mass/Vol] 13 mg/dL Normal 7-25 [facility] Comment on above: Performed By: #### C K, T4F, CRP, ESR, CBC, CMP, TSH3 ####[address]#### RPR W RFX, ALDOLASE ####[facility] , Creatine Kinaseon 11-24-2022 CK [Catalytic activity/Vol] 92 U/L Normal 30-223 [facility] Comment on above: Result Comment: PERF ORMED BY: [facility] [address] [place] [address] PATHOLOGIST [employer] SYMONE MACHADO M.D. Performed By: #### C K, T4F, CRP, ESR, CBC, CMP, TSH3 ####[place] [address] [place]#### RPR W RFX, ALDOLASE ####[facility] , Creatine kinase [Enzymatic a ctivity/volume] in Serum or PlasmaOrdered By: Williams Coronado on 11-24-2022 CK [Catalytic activity/Vol] 92 U/L [facility] Creatinine [Mass/volume] in Serum or PlasmaOrdered By: Williams Coronado on 11-24-2022 Creatinine [Mass/Vol] 0.96 mg/dL 0.70-1.30 [facility] Dipstick and Microscopicon 0 11-24-2022 Appearance (U) Clear Normal Clear [facility] Comment on above: Order Comment: Name Collection Type:: Clean-Voided Midstream Performed By: #### U PE RAND, CYNTHIA,URINE ####[facility] ,#### ADDONUAPLUS ####[address] Bacteria,Urine None Seen Normal None Seen [facility] Comment on above: Order Comment: Name Collection Type:: Clean-Voided Midstream Performed By: #### U PE RAND, CYNTHIA,URINE ####[facility] ,#### ADDONUAPLUS ####[address] Bilirubin,Urine Negative Normal Negative [facility] Comment on above: Order Comment: Name Collection Type:: Clean-Voided Midstream Performed By: #### U PE RAND, CYNTHIA,URINE ####[facility] ,#### ADDONUAPLUS ####[place] [id number] [facility] Color (U) Yellow Normal Yellow [facility] Comment on above: Order Comment: Name Collection Type:: Clean-Voided Midstream Performed By: #### U PE RAND, CYNTHIA,URINE ####[facility] ,#### ADDONUAPLUS ####[address] Glucose Ql (U) Normal Normal Normal [facility] Comment on above: Order Comment: Name Collection Type:: Clean-Voided Midstream Performed By: #### U PE RAND, CYNTHIA,URINE ####[facility] ,#### ADDONUAPLUS ####[address] Hyaline Casts,Urine None Seen Normal 0-8 [facility] Comment on above: Order Comment: Name Collection Type:: Clean-Voided Midstream Result Comment: PERF ORMED BY: [facility] [address] [place] [address] PATHOLOGIST [employer] SYMONE MACHADO M.D. Performed By: #### U PE RAND, CYNTHIA,URINE ####[facility] ,#### ADDONUAPLUS ####[address] Ketones Ql (U) Negative Normal Negative [facility] Comment on above: Order Comment: Name Collection Type:: Clean-Voided Midstream Performed By: #### U PE RAND, CYNTHIA,URINE ####[facility] ,#### ADDONUAPLUS ####[address] Leukocyte esterase Test strip Ql (U) Negative Normal Negative [facility] Comment on above: Order Comment: Name Collection Type:: Clean-Voided Midstream Performed By: #### U PE RAND, CYNTHIA,URINE ####[facility] ,#### ADDONUAPLUS ####[address] Nitrite,Urine Negative Normal Negative [facility] Comment on above: Order Comment: Name Collection Type:: Clean-Voided Midstream Performed By: #### U PE RAND, CYNTHIA,URINE ####[facility] ,#### ADDONUAPLUS ####[address] Occult Blood,Urine Negative Normal Negative [facility] Comment on above: Order Comment: Name Collection Type:: Clean-Voided Midstream Performed By: #### U PE RAND, CYNTHIA,URINE ####[facility] ,#### ADDONUAPLUS ####[address] pH (U) 5.5 [pH] Normal 5.0-9.0 [facility] Comment on above: Order Comment: Name Collection Type:: Clean-Voided Midstream Performed By: #### U PE RAND, CYNTHIA,URINE ####[facility] ,#### ADDONUAPLUS ####[address] Protein,Urine Negative Normal Negative [facility] Comment on above: Order Comment: Name Collection Type:: Clean-Voided Midstream Performed By: #### U PE RAND, CYNTHIA,URINE ####[facility] ,#### ADDONUAPLUS ####[address] RBC,Urine None Seen Normal 0-4 [facility] Comment on above: Order Comment: Name Collection Type:: Clean-Voided Midstream Performed By: #### U PE RAND, CYNTHIA,URINE ####[facility] ,#### ADDONUAPLUS ####[address] Specificy [place],Urine 1.015 Normal 1.001-1.03 0 [facility] Comment on above: Order Comment: Name Collection Type:: Clean-Voided Midstream Performed By: #### U PE RAND, CYNTHIA,URINE ####[facility] ,#### ADDONUAPLUS ####[address] Squamous Epithelial Cell,Urine None Seen Normal 0-2 [facility] Comment on above: Order Comment: Name Collection Type:: Clean-Voided Midstream Performed By: #### U PE RAND, CYNTHIA,URINE ####[facility] ,#### ADDONUAPLUS ####[address] Urobilinogen,Urine Normal Normal Normal [facility] Comment on above: Order Comment: Name Collection Type:: Clean-Voided Midstream Performed By: #### U PE RAND, CYNTHIA,URINE ####[facility] ,#### ADDONUAPLUS ####[place] [id number] [address] WBC,Urine None Seen Normal 0-4 [facility] Comment on above: Order Comment: Name Collection Type:: Clean-Voided Midstream Performed By: #### U PE RAND, CYNTHIA,URINE ####[facility] ,#### ADDONUAPLUS ####[address] Eosinophils Auto (Bld) [#/Vo l]Ordered By: Williams Coronado on 11-24-2022 Eosinophils (Bld) [#/Vol] 0.1 10*3/uL 0.0-0.45 [facility] Eosinophils/100 WBC Auto (Bl d)Ordered By: Williams Coronado on 11-24-2022 Eosinophils/100 WBC (Bld) 1.2 % . [facility] Erythrocyte Sedimentation Ra nellie 11-24-2022 ESR (Bld) [Velocity] 17 mm/h High 0-14 [facility] Comment on above: Result Comment: PERF ORMED BY: [facility] [address] [facility] [place] [address] PATHOLOGIST [employer] SYMONE MACHADO M.D. Performed By: #### C K, T4F, CRP, ESR, CBC, CMP, TSH3 ####[address]#### RPR W RFX, ALDOLASE ####[facility] , Erythrocyte distribution wid th Auto (RBC) [Ratio]Ordered By: Williams Coronado on 11-24-2022 Erythrocyte distribution width (RBC) [Ratio] 13.9 % 12.0-14.8 [facility] Erythrocyte sedimentation ra te by Photometric methodOrdered By: Williams Coronado on 05-02-2023 ESR Photometric method (Bld) [Velocity] 17 mm/hr 0-14 [facility] Free T4 (Free Thyroxine)on 0 11-24-2022 Free T4 [Mass/Vol] 0.81 ng/dL Normal 0.61-1.12 [facility] Comment on above: Performed By: #### C K, T4F, CRP, ESR, CBC, CMP, TSH3 ####[facility] [id number]#### RPR W RFX, ALDOLASE ####[facility] , Globulin Calc (S) [Mass/Vol] Ordered By: Williams Coronado on 11-24-2022 Globulin (S) [Mass/Vol] 3.0 g/dL [facility] Glucose [Mass/volume] in Ser um or PlasmaOrdered By: Williams Coronado on 11-24-2022 Glucose [Mass/Vol] 80 mg/dL 70-100 [facility] Comment on above: ADA recommended refe rence rangeRandom Glucose Reference Range is dependent on time and content of last meal. Glucose of more than 200 mg/dL in a nonstressed, ambulatory subject supports the diagnosis of Diabetes Mellitus. Hematocrit Auto (Bld) [Volum e fraction]Ordered By: Williams Coronado on 11-24-2022 Hematocrit (Bld) [Volume fraction] 44.2 % 38.8-50.0 [facility] Hemoglobin [Mass/volume] in BloodOrdered By: Williams Coronado on 11-24-2022 Hemoglobin (Bld) [Mass/Vol] 14.9 g/dL 13.0-17.0 [facility] Immunofixation, (CYNTHIA), Urine on 11-24-2022 Immunofixation, (CYNHTIA), Urine Normal . [facility] Comment on above: Result Comment: No m onoclonality detected. Performed at: - [facility] [id number] Mate Chief: Javier Dominguez PhD, Phone: [phone] Performed By: #### U PE RAND, CYNTHIA,URINE ####[facility] ,#### ADDONUAPLUS ####[place] [id number] [address] Ketones Auto test strip (U) [Mass/Vol]Ordered By: Williams Coronado on 11-24-2022 Ketones (U) [Mass/Vol] Negative Negative Fi [facility] Laboratory - CoagulationOrde red By: Williams Coronado on 11-24-2022 PT Coag (PPP) [Time] 10.5 s 9.0-12.9 [facility] Laboratory - UrinalysisOrder ed By: Williams Coronado on 11-24-2022 Hyaline casts LM Ql (Urine sed) None seen [LPF] 0-8 [facility] Leukocytes [#/volume] correc quentin for nucleated erythrocytes in Blood by Automated counOrdered By: Williams Coronado on 11-24-2022 WBC corrected for nucl RBC Auto (Bld) [#/Vol] 8.5 10*3/uL 4.1-10.5 [facility] Lupus Anticoagulant Compon 0 11-24-2022 Dilute Prothrombin Time (dPt) Normal . [facility] Comment on above: Result Comment: Test not performed. Insufficient specimen to perform or complete analysis. contacted your facility on 12-07-2022 Performed By: #### P P ####[address]#### LUPANTCOAG ####[facility] , DRVVT Lupus Normal . [facility] Comment on above: Result Comment: Test not performed PERFORMED BY: [facility] [address] [place] [address] PATHOLOGIST [employer] SYMONE MACHADO M.D. Performed By: #### P P ####[place] [address] [place]#### LUPANTCOAG ####[facility] , PTT-LA Normal . [facility] Comment on above: Result Comment: Test not performed Performed By: #### P P ####[address]#### LUPANTCOAG ####[facility] , Thrombin Time Normal . [facility] Comment on above: Result Comment: Test not performed Performed By: #### P P ####[facility] [id number] [place] [address] [facility]#### LUPANTCOAG ####[facility] , Lymphocytes Auto (Bld) [#/Vo l]Ordered By: Williams Coronado on 11-24-2022 Lymphocytes (Bld) [#/Vol] 2.8 10*3/uL 1.00-4.8 [facility] Lymphocytes/100 WBC Auto (Bl d)Ordered By: Williams Coronado on 11-24-2022 Lymphocytes/100 WBC (Bld) 32.7 % . [facility] MCH Auto (RBC) [Entitic mass ]Ordered By: Williams Coronado on 11-24-2022 MCH (RBC) [Entitic mass] 34.0 pg 27.5-35.2 [facility] MCHC Auto (RBC) [Mass/Vol]Or dered By: Williams Coronado on 11-24-2022 MCHC (RBC) [Mass/Vol] 33.6 g/dL 32.5-35.6 [facility] MCV Auto (RBC) [Entitic vol] Ordered By: Williams Coronado on 11-24-2022 MCV (RBC) [Entitic vol] 101.0 fL 83.5-101 [facility] Monocytes Auto (Bld) [#/Vol] Ordered By: Williams Coronado on 11-24-2022 Monocytes (Bld) [#/Vol] 0.9 10*3/uL 0.0-0.8 [facility] Monocytes/100 WBC Auto (Bld) Ordered By: Williams Coronado on 11-24-2022 Monocytes/100 WBC (Bld) 10.1 % . [facility] Neutrophils Auto (Bld) [#/Vo l]Ordered By: Williams Coronado on 11-24-2022 Neutrophils (Bld) [#/Vol] 4.7 10*3/uL 1.8-7.7 [facility] Neutrophils/100 WBC Auto (Bl d)Ordered By: Williams Coronado on 11-24-2022 Neutrophils/100 WBC (Bld) 55.4 % . [facility] Nitrite Test strip Ql (U)Ord ered By: Williams Coronado on 11-24-2022 Nitrite Ql (U) Negative Negative [facility] No Panel InformationOrdered By: Williams Coronado on 11-24-2022 Estimated GFR (CKD-EPI) > 60.0 mL/Min [facility] Creatinine Clearance (Chem N/A [facility] Nucleated erythrocytes [Pres ence] in Blood by Automated countOrdered By: Williams Coronado on 11-24-2022 Nucleated RBC Auto Ql (Bld) 0.1 /100{WBC} 0-0.5 [facility] Platelet mean volume Auto (B ld) [Entitic vol]Ordered By: Williams Coronado on 11-24-2022 Platelet mean volume (Bld) [Entitic vol] 9.0 fL 6.6-10.1 [facility] Platelet poor plasma interna tional normalized ratio (INR) by coagulation assay (relatOrdered By: Williams Coronado on 11-24-2022 INR Coag (PPP) [Relative time] 0.9 {INR} [facility] Comment on above: INR Therapeutic Rang e A) Pre- and Peroperative OAT started two weeks before surgery. NOT HIP SURGERY: 1.5 - 2.5 HIP SURGERY: 2 - 3B) Primary and secondary prevention of venous THROMBOSIS: 2 - 3C) Active venous thrombosis, pulmonary embolismand prevention of recurrent venous thrombosis: 2 - 3D) Prevention of arterial thromboembolismincluding patients with mechanical heart valves: 3 - 4.5 Platelets Auto (Bld) [#/Vol] Ordered By: Williams Coronado on 11-24-2022 Platelets (Bld) [#/Vol] 217 10*3/uL 150-450 [facility] Potassium [Moles/volume] in Serum or PlasmaOrdered By: Williams Coronado on 11-24-2022 Potassium [Moles/Vol] 4.3 mmol/L 3.5-5.1 [facility] Protein Auto test strip (U) [Mass/Vol]Ordered By: Williams Coronado on 11-24-2022 Protein (U) [Mass/Vol] Negative Negative [facility] Protein Electro, Random Urin zahida 11-24-2022 Albumin, Urine 31.5 % Normal . [facility] Comment on above: Performed By: #### U PE RAND, CYNTHIA,URINE ####[facility] ,#### ADDONUAPLUS ####[address] Isjgg-2-Epzfotwk, Urine 3.0 % Normal . [facility] Comment on above: Performed By: #### U PE RAND, CYNTHIA,URINE ####[facility] ,#### ADDONUAPLUS ####[address] Bvtdf-4-Hoxrjvnk, Urine 19.7 % Normal . [facility] Comment on above: Performed By: #### U PE RAND, CYNTHIA,URINE ####[facility] ,#### ADDONUAPLUS ####[address] Beta Globulin, Urine 25.4 % Normal . [facility] Comment on above: Performed By: #### U PE RAND, CYNTHIA,URINE ####[facility] ,#### ADDONUAPLUS ####[address] Gamma Globulin, Urine 20.3 % Normal . [facility] Comment on above: Performed By: #### U PE RAND, CYNTHIA,URINE ####[facility] ,#### ADDONUAPLUS ####[address] M-Joey % Not Observed Normal Not Observed [facility] Comment on above: Performed By: #### U PE RAND, CYNTHIA,URINE ####[facility] ,#### ADDONUAPLUS ####[address] Please Note: Normal . [facility] Comment on above: Result Comment: Prot ein electrophoresis scan will follow via computer, mail, or admission nurse delivery. PERFORMED BY: [address] [place] [id number] PATHOLOGIST [employer] SYMONE MACHADO M.D. Performed By: #### U PE RAND, CYNTHIA,URINE ####[facility] ,#### ADDONUAPLUS ####[place] [id number] [facility] Protein (U) [Mass/Vol] 7.7 mg/dL Normal Not Estab. [facility] Comment on above: Performed By: #### U PE RAND, CYNTHIA,URINE ####[facility] ,#### ADDONUAPLUS ####[place] [id number] [facility] Protein [Mass/volume] in Ser um or PlasmaOrdered By: Williams Coronado on 11-24-2022 Protein [Mass/Vol] 7.2 g/dL 6.4-8.9 [facility] RBC Auto (Bld) [#/Vol]Ordere d By: Williams Coronado on 11-24-2022 RBC (Bld) [#/Vol] 4.38 10*6/uL 3.90-5.60 [facility] RPR w/rfx to Quant TP Abson 11-24-2022 RPR, Rfx Quant RPR Non-Reactive Normal Non Reactive [facility] Comment on above: Result Comment: Perf ormed at: CB - [facility] [address] [id number] Mate Chief: Javier Dominguez PhD, Phone: [phone] PERFORMED BY: [address] [place] [id number] PATHOLOGIST [employer] MAK[employer] SYMONE MACHADO M.D. Performed By: #### C K, T4F, CRP, ESR, CBC, CMP, TSH3 ####[place] [id number] [facility]#### RPR W RFX, ALDOLASE ####[facility] , Serum or plasma albumin/glob ulin mass ratioOrdered By: Williams Cullenrow on 11-24-2022 Albumin/Globulin [Mass ratio] 1.4 {ratio} [facility] Serum or plasma anion gap de terminationOrdered By: Williams Ivonne on 11-24-2022 Anion gap [Moles/Vol] 13.6 mmol/L 6.0-15.0 [facility] Sodium [Moles/volume] in Ser um or PlasmaOrdered By: Williams Coronado on 11-24-2022 Sodium [Moles/Vol] 138 mmol/L 136-145 [facility] Specific gravity Auto test s trip (U) [Rel density]Ordered By: Williams Cullenrow on 11-24-2022 Specific gravity (U) [Rel density] 1.015 1.001-1.03 0 [facility] Squamous epithelial cells de tection in urine sediment by light microscopyOrdered By: Williams Coronado on 11-24-2022 Epithelial cells.squamous LM Ql (Urine sed) None seen [HPF] 0-2 [facility] Thyroid Peroxidase Antibodie son 11-24-2022 Thyroid Peroxidase Antibodies <9 Normal 0-34 [facility] Comment on above: Result Comment: Perf ormed at: - [facility] [address] [id number] Mate Chief: Javier Dominguez PhD, Phone: [phone] Performed By: #### C 4, THYGLOB AB, CH50, TPO, ANASTASIIA, CHROMATIN, C3 #### [facility] , Thyroid Stimulating Hormoneo n 11-24-2022 TSH Qn 2.20 m[IU]/L Normal 0.45-5.33 [facility] Comment on above: Result Comment: PERF ORMED BY: [facility] [address] [place] [id number] PATHOLOGIST [employer] SYMONE MACHADO M.D. Performed By: #### C K, T4F, CRP, ESR, CBC, CMP, TSH3 ####[facility] [id number] [place] [address] [facility]#### RPR W RFX, ALDOLASE ####[facility] , Thyrotropin [Units/volume] i n Serum or PlasmaOrdered By: Williams Coronado on 11-24-2022 TSH Qn 2.20 m[IU]/L 0.45-5.33 [facility] Thyroxine (T4) free [Mass/vo lume] in Serum or PlasmaOrdered By: Williams Coronado on 11-24-2022 Free T4 [Mass/Vol] 0.81 ng/dL 0.61-1.12 [facility] Urea nitrogen [Mass/volume] in Serum or PlasmaOrdered By: Williams Coronado on 11-24-2022 Urea nitrogen [Mass/Vol] 13 mg/dL 7-25 [facility] Urine bacteria detection by automated methodOrdered By: Williams Coronado on 11-24-2022 Bacteria Auto Ql (U) None seen None Seen [facility] Urine clarity by refractomet ry automatedOrdered By: Williams Coronado on 11-24-2022 Clarity Refractometry automated (U) Clear Clear [facility] Urine glucose measurement by automated test strip (mass/volume)Ordered By: Williams Coronado on 11-24-2022 Glucose Auto test strip (U) [Mass/Vol] Normal mg/dL Normal [facility] Urine hemoglobin detection b y automated test stripOrdered By: Williams Coronado on 11-24-2022 Hemoglobin Auto test strip Ql (U) Negative Negative [facility] Urine leukocyte esterase det ection by automated test stripOrdered By: Williams Coronado on 11-24-2022 Leukocyte esterase Auto test strip Ql (U) Negative Negative [facility] Urobilinogen Auto test strip (U) [Mass/Vol]Ordered By: Williams Coronado on 11-24-2022 Urobilinogen (U) [Mass/Vol] Normal mg/dL Normal [facility] WBC Auto (Bld) [#/Vol]Ordere d By: Williams Coronado on 11-24-2022 WBC (Bld) [#/Vol] 8.5 10*3/uL 4.1-10.5 [facility] pH Auto test strip (U)Ordere d By: Williams Coronado on 11-24-2022 pH (U) 5.5 [pH] 5.0-9.0 [facility] ANASTASIIA by IFAon 10-18-2022 Antinuclear Antibodies, IFA Positive Abnormal [facility] Comment on above: Result Comment: Nega tive <1:80 Borderline 1:80 Positive >1:80 Performed By: #### C VDTBH #### [facility] [address] [place] [address] Dr. Kyra Patel Centriole Pattern Normal [facility] Comment on above: Performed By: #### C VDTBH #### [facility] [address] [place] [address] Dr. Kyra Patel Centromere Pattern 1:320 Critically high [facility] Comment on above: Result Comment: ICAP nomenclature: AC-3 Performed By: #### C VDTBH #### [facility] [address] [place] [address] Dr. Kyra Patel Homogeneous Pattern 1:160 Critically high [facility] Comment on above: Result Comment: ICAP nomenclature: AC-1 Performed By: #### C VDTBH #### [facility] [address] [place] [address] Dr. Kyra Patel Midbody Pattern Normal [facility] Comment on above: Performed By: #### C VDTBH #### [facility] [address] [place] [address] Dr. Kyra Patel Note: Comment Normal [facility] Comment on above: Result Comment: For more information about Hep-2 cell patterns use ANApatterns.org, the official website for the International Consensus on Antinuclear Antibody (ANASTASIIA) Patterns (ICAP). A positive ANASTASIIA result may occur in healthy individuals (low titer) or be associated with a variety of diseases. See interpretation chart which is not all inclusive: . Pattern Antigen Detected Suggested Disease Association Homogeneous DNA(ds,ss), SLE - High titers Nucleosomes, Histones Drug-induced SLE Speckled Sm, DRAWING IN MACHINE TENDER HELPER, SCL-70, SLE,MCTD,PSS (diffuse form), SS-A/SS-B Sjogrens Nucleolar SCL-70, PM-1/SCL High titers Scleroderma, PM/DM Centromere Centromere PSS (limited form) w/Crest syndrome variable Nuclear Dot [id number] Primary Biliary Cirrhosis Nuclear GP210, Primary Biliary Cirrhosis Membrane aida A,B,C Performed By: #### C VDTBH #### [facility] [address] [place] [address] Dr. Kyra Patel Nuclear Dot Pattern Normal [facility] Comment on above: Performed By: #### C VDTBH #### [facility] [address] [place] [address] [address] Krya Patel Nuclear Membrane Pattern Normal [facility] Comment on above: Performed By: #### C VDTBH #### [facility] [address] [place] [address] Dr. Kyra Patel Nucleolar Pattern Normal [facility] Comment on above: Performed By: #### C VDTBH #### [facility] [address] [place] [address] Dr. Kyra Patel PCNA Pattern Normal [facility] Comment on above: Performed By: #### C VDTBH #### [facility] [address] [place] [address] Dr. Kyra Patel Speckled Pattern Normal [facility] Comment on above: Performed By: #### C VDTBH #### [facility] [address] [place] [address] Dr. Kyra Patel Spindle Apparatus Pattern Normal [facility] Comment on above: Performed By: #### C VDTBH #### [facility] [address] [place] [address] Dr. Kyra Patel RHEUMATOID FACTORon 10-17-19 RA Latex Turbid. 10.2 IU/mL Normal <14.0 [facility] Comment on above: Performed By: #### C VDTBH #### [facility] [address] [place] [address] Dr. Kyra Patel CBC AUTO DIFFon 10-15-2022 BASO # 0.1 103/ul Normal 0.0-0.1 [facility] Comment on above: Performed By: #### C BC #### [facility] [address] [place] [address] Dr. Kyra Patel Basophils/100 WBC (Bld) 0.9 % Normal 0.2-2.0 [facility] Comment on above: Performed By: #### C BC #### [facility] [address] [place] [address] Dr. Kyra Patel EO # 0.1 103/ul Normal 0.0-0.7 [facility] Comment on above: Performed By: #### C BC #### [facility] [address] [place] [address] Dr. Kyra Patel Eosinophils/100 WBC (Bld) 1.4 % Normal 0.9-7.0 [facility] Comment on above: Performed By: #### C BC #### [facility] [address] [place] [address] Dr. Kyra Patel Erythrocyte distribution width (RBC) [Ratio] 14.0 % Normal 11.0-15.0 [facility] Comment on above: Performed By: #### C BC #### [facility] [address] [place] [address] Dr. Kyra Patel Hematocrit (Bld) [Volume fraction] 40.9 % Critically low 42.0-54.0 [facility] Comment on above: Performed By: #### C BC #### [facility] [address] [place] [address] Dr. Kyra Patel Hemoglobin (Bld) [Mass/Vol] 14.2 g/dL Normal 14.0-18.0 [facility] Comment on above: Performed By: #### C BC #### [facility] [address] [place] [address] Dr. Kyra Patel IG # 0.03 10e3/ul Normal 0.00-0.03 [facility] Comment on above: Performed By: #### C BC #### [facility] [address] [place] [address] Dr. Kyra Patel IG % 0.4 % Normal 0.0-0.5 [facility] Comment on above: Performed By: #### C BC #### [facility] [address] [place] [address] Dr. Kyra Patel LYMPH # 2.5 103/ul Normal 1.2-3.8 [facility] Comment on above: Performed By: #### C BC #### [facility] [address] [place] [address] Dr. Kyra Patel Lymphocytes/100 WBC (Bld) 30.8 % Normal 20.5-60.0 [facility] Comment on above: Performed By: #### C BC #### [facility] [address] [place] [address] Dr. Kyra Patel MANUAL DIFF REQ NO Normal [facility] Comment on above: Performed By: #### C BC #### [facility] [address] [place] [address] Dr. Kyra Patel MCH (RBC) [Entitic mass] 34.7 pg Critically high 25.9-34.0 [facility] Comment on above: Performed By: #### C BC #### [facility] [address] [place] [address] Dr. Kyra Patel MCHC (RBC) [Mass/Vol] 34.7 g/dL Normal 29.9-35.2 [facility] Comment on above: Performed By: #### C BC #### [facility] [address] [place] [address] Dr. Kyra Patel MCV (RBC) [Entitic vol] 100.0 fL Critically high 80.0-94.0 [facility] Comment on above: Performed By: #### C BC #### [facility] [address] [place] [address] Dr. Kyra Patel MONO # 0.8 103/ul Normal 0.3-0.8 [facility] Comment on above: Performed By: #### C BC #### [facility] [address] [place] [address] Dr. Kyra Patel Monocytes/100 WBC (Bld) 9.5 % Normal 1.7-12.0 [facility] Comment on above: Performed By: #### C BC #### [facility] [address] [place] [address] Dr. Kyra Patel NEUT # 4.6 103/ul Normal 1.4-6.5 [facility] Comment on above: Performed By: #### C BC #### [facility] [address] [address] [address] Kyra Patel Neutrophils/100 WBC (Bld) 57.0 % Normal 43.0-75.0 [facility] Comment on above: Performed By: #### C BC #### [facility] [address] [address] [address] Kyra Patel Platelet mean volume (Bld) [Entitic vol] 9.4 fL Critically low 9.5-13.5 [facility] Comment on above: Performed By: #### C BC #### [facility] [address] [place] [address] Dr. Kyra Patel PLT 197 103/ul Normal 150-450 [facility] Comment on above: Performed By: #### C BC #### [facility] [address] [place] [address] Dr. Kyra Patel RBC 4.09 106/ul Critically low 4.70-6.10 [facility] Comment on above: Performed By: #### C BC #### [facility] [address] [place] [address] Dr. Kyra Patel WBC 8.1 103/ul Normal 4.0-11.0 [facility] Comment on above: Performed By: #### C BC #### [facility] [address] [place] [address] Dr. Kyra Patel PROF 14(COMP METB)on 023 Albumin [Mass/Vol] 3.6 g/dL Normal 3.4-5.0 [facility] Comment on above: Performed By: #### C MP, T4, TSH #### [facility] [address] [place] [address] Dr. Kyra Patel Albumin/Globulin [Mass ratio] 1.0 {ratio} Normal [facility] Comment on above: Performed By: #### C MP, T4, TSH #### [facility] [address] [place] [address] Dr. Kyra Patel ALP [Catalytic activity/Vol] 86 U/L Normal 46-116 [facility] Comment on above: Performed By: #### C MP, T4, TSH #### [facility] [address] [address] [address] Kyra Patel ALT [Catalytic activity/Vol] 60 U/L Normal 16-63 [facility] Comment on above: Performed By: #### C MP, T4, TSH #### [facility] [address] [address] [address] Kyra Patel Anion gap [Moles/Vol] 15.0 mmol/L Normal [facility] Comment on above: Performed By: #### C MP, T4, TSH #### [facility] [address] [place] [address] Dr. Kyra Patel AST [Catalytic activity/Vol] 44 U/L Critically high 15-37 [facility] Comment on above: Performed By: #### C MP, T4, TSH #### [facility] [address] [place] [address] Dr. Kyra Patel Bilirubin [Mass/Vol] 0.4 mg/dL Normal 0.2-1.0 [facility] Comment on above: Performed By: #### C MP, T4, TSH #### [facility] [address] [place] [address] Dr. Kyra Patel Calcium [Mass/Vol] 8.7 mg/dL Normal 8.5-10.1 [facility] Comment on above: Performed By: #### C MP, T4, TSH #### [facility] [address] [place] [address] Dr. Kyra Patel Chloride [Moles/Vol] 103 mmol/L Normal 98-107 [facility] Comment on above: Performed By: #### C MP, T4, TSH #### [facility] [address] [place] [address] Dr. Kyra Patel CO2 [Moles/Vol] 24.2 mmol/L Normal 21.0-32.0 [facility] Comment on above: Performed By: #### C MP, T4, TSH #### [facility] [address] [place] [address] Dr. Kyra Patel Creatinine [Mass/Vol] 0.94 mg/dL Normal 0.70-1.30 [facility] Comment on above: Performed By: #### C MP, T4, TSH #### [facility] [address] [address] [address] Kyra Patel EGFR-AF TAJIK >60 Normal >=60 [facility] Comment on above: Performed By: #### C MP, T4, TSH #### [facility] [address] [address] [address] Kyra Patel EGFR-NON AF TAJIK >60 Normal >=60 [facility] Comment on above: Performed By: #### C MP, T4, TSH #### [facility] [address] [address] [address] Kyra Patel Globulin (S) [Mass/Vol] 3.5 g/dL Normal [facility] Comment on above: Performed By: #### C MP, T4, TSH #### [facility] [address] [address] [address] Kyra Patel Glucose [Mass/Vol] 96 mg/dL Normal 74-106 [facility] Comment on above: Performed By: #### C MP, T4, TSH #### [facility] [address] [address] [address] Kyra Patel Potassium [Moles/Vol] 4.2 mmol/L Normal 3.5-5.1 [facility] Comment on above: Performed By: #### C MP, T4, TSH #### [facility] [address] [address] [address] Kyra Patel Protein [Mass/Vol] 7.1 g/dL Normal 6.4-8.2 [facility] Comment on above: Performed By: #### C MP, T4, TSH #### [facility] [address] [address] [address] Kyra Patel Sodium [Moles/Vol] 138 mmol/L Normal 136-145 [facility] Comment on above: Performed By: #### C MP, T4, TSH #### [facility] [address] [address] [address] Kyra Patel Urea nitrogen [Mass/Vol] 14.0 mg/dL Normal 7.0-18.0 [facility] Comment on above: Performed By: #### C MP, T4, TSH #### [facility] [address] [address] [address] Kyra Patel Urea nitrogen/Creatinine [Mass ratio] 14.9 mg/mg Normal [facility] Comment on above: Performed By: #### C MP, T4, TSH #### [facility] [address] [place] [address] Dr. Kyra Patel [facility] 4 mm/hr Normal <=15 [facility] Comment on above: Performed By: #### S EDR #### [facility] [address] [place] [address] Dr. Kyra Patel T4on 10-15-2022 T4 [Mass/Vol] 6.20 ug/dL Normal 4.50-12.10 [facility] Comment on above: Performed By: #### C MP, T4, TSH #### [facility] [address] [place] [address] Dr. Kyra Patel TSHon 10-15-2022 TSH 1.451 uIU/mL Normal 0.358-3.74 0 [facility] Comment on above: Performed By: #### C MP, T4, TSH #### [facility] [address] [place] [address] Dr. Kyra Patel [facility] SARS-CoV-2 (COVID-19) RNA COLBY+probe Ql (Unsp spec) Not detected Normal NOT DETECTED [facility] Comment on above: Result Comment: This test is not yet approved or cleared by the [place] FDA. When there are no FDA-approved or cleared tests available, and other criteria are met, FDA can make tests available under an emergency access mechanism called an Emergency Use Authorization (EUA). The EUA for this test is supported by the [employer] Operator of Health and Human Service's (HHS's) declaration that circumstances exist to justify the emergency use of in vitro diagnostics for the detection and/or diagnosis of the virus that causes COVID-19. This EUA will remain in effect (meaning this test can be used) for the duration of the COVID-19 declaration justifying emergency of IVDs, unless it is terminated or revoked by FDA (after which the test may no longer be used). When diagnostic testing is negative, the possibility of a false negative should be considered in the context of a patient's recent exposures and the presence of clinical signs and symptoms consistent with SARS-CoV-2. Performed By: #### C VDTB #### [facility] [address] [place] [address] Dr. Kyra Patel Covid-19 PCR ([facility])on 06-25 SARS-CoV-2 (COVID-19) RNA COLBY+probe Ql (Unsp spec) Detected Critically abnormal NOT DETECTED [facility] Comment on above: Result Comment: This test is not yet approved or cleared by the [place] FDA. When there are no FDA-approved or cleared tests available, and other criteria are met, FDA can make tests available under an emergency access mechanism called an Emergency Use Authorization (EUA). The EUA for this test is supported by the D[employer] Operator of Health and Human Service's (HHS's) declaration that circumstances exist to justify the emergency use of in vitro diagnostics for the detection and/or diagnosis of the virus that causes COVID-19. This EUA will remain in effect (meaning this test can be used) for the duration of the COVID-19 declaration justifying emergency of IVDs, unless it is terminated or revoked by FDA (after which the test may no longer be used). Performed By: #### C VDTBH #### [facility] [address] [place] [address] Dr. Kyra Patel CBC AUTO DIFFon 01-28-2022 BASO # 0.1 103/ul Normal 0.0-0.1 [facility] Comment on above: Performed By: #### C BC #### [facility] [address] [place] [address] Dr. Kyra Patel Basophils/100 WBC (Bld) 0.8 % Normal 0.2-2.0 [facility] Comment on above: Performed By: #### C BC #### [facility] [address] [place] [address] Dr. Kyra Patel EO # 0.2 103/ul Normal 0.0-0.7 [facility] Comment on above: Performed By: #### C BC #### [facility] [address] [place] [address] Dr. Kyra Patel Eosinophils/100 WBC (Bld) 2.1 % Normal 0.9-7.0 [facility] Comment on above: Performed By: #### C BC #### [facility] [address] [place] [address] Dr. Kyra Patel Erythrocyte distribution width (RBC) [Ratio] 13.7 % Normal 11.0-15.0 [facility] Comment on above: Performed By: #### C BC #### [facility] [address] [place] [address] Dr. Kyra Patel Hematocrit (Bld) [Volume fraction] 43.1 % Normal 42.0-54.0 [facility] Comment on above: Performed By: #### C BC #### [facility] [address] [place] [address] Dr. Kyra Patel Hemoglobin (Bld) [Mass/Vol] 14.7 g/dL Normal 14.0-18.0 [facility] Comment on above: Performed By: #### C BC #### [facility] [address] [place] [address] Dr. Kyra Patel IG # 0.05 10e3/ul Critically high 0.00-0.03 [facility] Comment on above: Performed By: #### C BC #### [facility] [address] [place] [address] Dr. Kyra Patel IG % 0.6 % Critically high 0.0-0.5 [facility] Comment on above: Performed By: #### C BC #### [facility] [address] [place] [address] Dr. Kyra Patel LYMPH # 2.4 103/ul Normal 1.2-3.8 [facility] Comment on above: Performed By: #### C BC #### [facility] [address] [place] [address] Dr. Kyra Patel Lymphocytes/100 WBC (Bld) 27.4 % Normal 20.5-60.0 [facility] Comment on above: Performed By: #### C BC #### [facility] [address] [place] [address] Dr. Kyra Patel MANUAL DIFF REQ NO Normal [facility] Comment on above: Performed By: #### C BC #### [facility] [address] [place] [address] Dr. Kyra Patel MCH (RBC) [Entitic mass] 34.0 pg Normal 25.9-34.0 [facility] Comment on above: Performed By: #### C BC #### [facility] [address] [place] [address] Dr. Kyra Patel MCHC (RBC) [Mass/Vol] 34.1 g/dL Normal 29.9-35.2 [facility] Comment on above: Performed By: #### C BC #### [facility] [address] [place] [address] Dr. Kyra Patel MCV (RBC) [Entitic vol] 99.8 fL Critically high 80.0-94.0 [facility] Comment on above: Performed By: #### C BC #### [facility] [address] [place] [address] Dr. Kyra Patel MONO # 0.9 103/ul Critically high 0.3-0.8 [facility] Comment on above: Performed By: #### C BC #### [facility] [address] [place] [address] Dr. Kyra Patel Monocytes/100 WBC (Bld) 9.8 % Normal 1.7-12.0 [facility] Comment on above: Performed By: #### C BC #### [facility] [address] [place] [address] Dr. Kyra Patel NEUT # 5.3 103/ul Normal 1.4-6.5 [facility] Comment on above: Performed By: #### C BC #### [facility] [address] [place] [address] Dr. Kyra Patel Neutrophils/100 WBC (Bld) 59.3 % Normal 43.0-75.0 [facility] Comment on above: Performed By: #### C BC #### [facility] [address] [address] [address] Kyra Patel Platelet mean volume (Bld) [Entitic vol] 9.8 fL Normal 9.5-13.5 [facility] Comment on above: Performed By: #### C BC #### [facility] [address] [address] [address] Kyra Patel PLT 195 103/ul Normal 150-450 [facility] Comment on above: Performed By: #### C BC #### [facility] [address] [address] [address] Kyra Patel RBC 4.32 106/ul Critically low 4.70-6.10 [facility] Comment on above: Performed By: #### C BC #### [facility] [address] [address] [address] Kyra Patel WBC 8.9 103/ul Normal 4.0-11.0 [facility] Comment on above: Performed By: #### C BC #### [facility] [address] [address] [address] Kyra Patel DIRECT LDLon 01-28-2022 Cholesterol in LDL [Mass/Vol] 135 mg/dL Normal [facility] Comment on above: Performed By: #### D LDL, CMP, LIPID #### [facility] [address] [place], [place] [id number] Dr. Kyra Patel DLDL NORMAL SEE BELOW Normal [facility] Comment on above: Result Comment: <100 mg/dl OPTIMAL 100 - 129 mg/dl NEAR OR ABOVE OPTIMAL 130 - 159 mg/dl BORDERLINE HIGH 160 - 189 mg/dl HIGH >190 mg/dl VERY HIGH Performed By: #### D LDL, CMP, LIPID #### [facility] [address] [place] [address] Dr. Kyra Patel LIPID PROFILEon 01-28-2022 CHOL-HDL RATIO NORM SEE BELOW Normal [facility] Comment on above: Result Comment: 3.3 - 4.4 LOW RISK 4.4 - 7.1 AVERAGE RISK 7.1 - 11.0 MODERATE RISK >11.0 HIGH RISK Performed By: #### D LDL, CMP, LIPID #### [facility] [address] [address] [address] Kyra Patel Cholesterol [Mass/Vol] 277 mg/dL Critically high <=200 [facility] Comment on above: Performed By: #### D LDL, CMP, LIPID #### [facility] [address] [address] [address] Kyra Patel Cholesterol in HDL [Mass/Vol] 36 mg/dL Critically low 40-60 [facility] Comment on above: Performed By: #### D LDL, CMP, LIPID #### [facility] [address] [address] [address] Kyra Patel Cholesterol in LDL [Mass/Vol] 81.6 mg/dL Normal [facility] Comment on above: Performed By: #### D LDL, CMP, LIPID #### [facility] [address] [address] [address] Kyra Patel Cholesterol.total/Chol esterol in HDL [Mass ratio] 7.7 {ratio} Normal [facility] Comment on above: Performed By: #### D LDL, CMP, LIPID #### [facility] [address] [address] [address] Kyra Patel HDL NORMAL > or = 60 mg/dl - LO W CARDIOVASCULAR RISK <40 mg/dl - HIGH CARDIOVASCULAR RISK Normal [facility] Comment on above: Performed By: #### D LDL, CMP, LIPID #### [facility] [address] [address] [address] Kyra Patel LDL CALC NORMAL SEE BELOW Normal [facility] Comment on above: Result Comment: <100 mg/dl OPTIMAL 100 - 129 mg/dl NEAR OR ABOVE OPTIMAL 130 - 159 mg/dl BORDERLINE HIGH 160 - 189 mg/dl HIGH >190 mg/dl VERY HIGH Performed By: #### D LDL, CMP, LIPID #### [facility] [address] [address] [address] Kyra Patel Triglyceride [Mass/Vol] 797 mg/dL Critically high <=150 [facility] Comment on above: Performed By: #### D LDL, CMP, LIPID #### [facility] [address] [address] [address] Krya Patel VLDL CALC 159.4 mg/dL Normal [facility] Comment on above: Performed By: #### D LDL, CMP, LIPID #### [facility] [address] [address] [address] Kyra Patel PROF 14(COMP METB)on 022 Albumin [Mass/Vol] 3.5 g/dL Normal 3.4-5.0 [facility] Comment on above: Performed By: #### D LDL, CMP, LIPID #### [facility] [address] [address] [address] Kyra Patel Albumin/Globulin [Mass ratio] 0.9 {ratio} Normal [facility] Comment on above: Performed By: #### D LDL, CMP, LIPID #### [facility] [address] [address] [address] Kyra Patel ALP [Catalytic activity/Vol] 78 U/L Normal 46-116 [facility] Comment on above: Performed By: #### D LDL, CMP, LIPID #### [facility] [address] [address] [address] Kyra Patel ALT [Catalytic activity/Vol] 50 U/L Normal 16-63 [facility] Comment on above: Performed By: #### D LDL, CMP, LIPID #### [facility] [address] [address] [address] Kyra Patel Anion gap [Moles/Vol] 13.7 mmol/L Normal [facility] Comment on above: Performed By: #### D LDL, CMP, LIPID #### [facility] [address] [address] [address] Kyra Patel AST [Catalytic activity/Vol] 30 U/L Normal 15-37 [facility] Comment on above: Performed By: #### D LDL, CMP, LIPID #### [facility] [address] [address] [address] Kyra Patel Bilirubin [Mass/Vol] 0.3 mg/dL Normal 0.2-1.0 [facility] Comment on above: Performed By: #### D LDL, CMP, LIPID #### [facility] [address] [address] [address] Kyra Patel Calcium [Mass/Vol] 8.6 mg/dL Normal 8.5-10.1 [facility] Comment on above: Performed By: #### D LDL, CMP, LIPID #### [facility] [address] [address] [address] Kyra Patel Chloride [Moles/Vol] 104 mmol/L Normal 98-107 [facility] Comment on above: Performed By: #### D LDL, CMP, LIPID #### [facility] [address] [address] [address] Kyra Patel CO2 [Moles/Vol] 23.8 mmol/L Normal 21.0-32.0 [facility] Comment on above: Performed By: #### D LDL, CMP, LIPID #### [facility] [address] [place] [address] Dr. Kyra Patel Creatinine [Mass/Vol] 1.02 mg/dL Normal 0.70-1.30 [facility] Comment on above: Performed By: #### D LDL, CMP, LIPID #### [facility] [address] [place] [address] Dr. Kyra Patel EGFR-AF TAJIK >60 Normal >=60 [facility] Comment on above: Performed By: #### D LDL, CMP, LIPID #### [facility] [address] [place] [address] Dr. Kyra Patel EGFR-NON AF TAJIK >60 Normal >=60 [facility] Comment on above: Performed By: #### D LDL, CMP, LIPID #### [facility] [address] [address] [address] Kyra Patel Globulin (S) [Mass/Vol] 3.7 g/dL Normal [facility] Comment on above: Performed By: #### D LDL, CMP, LIPID #### [facility] [address] [address] [address] Kyra Patel Glucose [Mass/Vol] 113 mg/dL Critically high 74-106 [facility] Comment on above: Performed By: #### D LDL, CMP, LIPID #### [facility] [address] [address] [address] Kyra Patel Potassium [Moles/Vol] 3.5 mmol/L Normal 3.5-5.1 [facility] Comment on above: Performed By: #### D LDL, CMP, LIPID #### [facility] [address] [address] [address] Kyra Patel Protein [Mass/Vol] 7.2 g/dL Normal 6.4-8.2 [facility] Comment on above: Performed By: #### D LDL, CMP, LIPID #### [facility] [address] [address] [address] Kyra Patel Sodium [Moles/Vol] 138 mmol/L Normal 136-145 [facility] Comment on above: Performed By: #### D LDL, CMP, LIPID #### [facility] [address] [address] [address] Kyra Patel Urea nitrogen [Mass/Vol] 12.0 mg/dL Normal 7.0-18.0 [facility] Comment on above: Performed By: #### D LDL, CMP, LIPID #### [facility] [address] [place] [address] Dr. Kyra Patel Urea nitrogen/Creatinine [Mass ratio] 11.8 mg/mg Normal [facility] Comment on above: Performed By: #### D LDL, CMP, LIPID #### [facility] [address] [address] [address] Kyra Patel Vital Signs Date Time Vital Sign Value Performing Clinician Facility 07-22-2023 07:58-0500 Body height 182.88 cm DO [employer] Work Phone: [facility] 07-22-2023 07:58-0500 Body mass index (BMI) [Ratio] 27.1 kg/m2 DO [employer] Work Phone: [facility] 07-22-2023 07:58-0500 Body weight 90.71 kg DO [employer] Work Phone: [facility] 07-22-2023 07:45-0500 Diastolic blood pressure 81 mm[Hg] DO [facility] Work Phone: [facility] 07-22-2023 07:45-0500 Heart rate 84 /min DO [facility] Work Phone: [facility] 07-22-2023 07:45-0500 Respiratory rate 20 /min DO [facility] Work Phone: [facility] 07-22-2023 07:45-0500 Systolic blood pressure 146 mm[Hg] DO [facility] Work Phone: [facility] 07-07-2023 07:19-0500 Body temperature 97.8 [degF] DO [facility] Work Phone: [facility] 06-18-2023 12:47-0500 Diastolic blood pressure 77 mm[Hg] DO [facility] Work Phone: [facility] 06-18-2023 12:47-0500 Heart rate 78 /min DO [facility] Work Phone: [facility] 06-18-2023 12:47-0500 Respiratory rate 18 /min DO [facility] Work Phone: [facility] 06-18-2023 12:47-0500 SaO2% (BldA) [Mass fraction] 98 % DO [facility] Work Phone: [facility] 06-18-2023 12:47-0500 Systolic blood pressure 131 mm[Hg] DO [facility] Work Phone: [facility] 06-18-2023 05:13-0500 Body temperature 98 [degF] DO [facility] Work Phone: [facility] 06-18-2023 05:12-0500 Body height 182.88 cm DO Keagan House Work Phone: [facility] 06-18-2023 05:12-0500 Body weight 90.71 kg DO Keagan House Work Phone: [facility] 05-31-2023 09:45-0500 Body height 182.88 cm Tony Lieberman Other [facility] Other 03-22-2023 10:30-0400 Body height 182.88 cm Tony Vegaban Other [facility] Other 03-22-2023 10:30-0400 Body mass index (BMI) [Ratio] 26.58 kg/m2 Tony Vegahenry Other [facility] Other 03-22-2023 10:30-0400 Body temperature 98.2 [degF] Tony Vegahenry Other [facility] Other 03-22-2023 10:30-0400 Body weight 88.91 kg Tony Lieberman Other [facility] Other 03-22-2023 10:30-0400 Diastolic blood pressure 72 mm[Hg] Tony Vegaban Other [facility] Other 03-22-2023 10:30-0400 Respiratory rate 20 /min Tony Vegaban Other [facility] Other 03-22-2023 10:30-0400 SaO2% (BldA) [Mass fraction] 96 % Tony Vegahenry Other [facility] Other 03-22-2023 10:30-0400 Systolic blood pressure 120 mm[Hg] Tony Vegaban Other [facility] Other Encounters Encounter Date Encounter Type Care Provider Facility Start: 10-19-2023 [facility] Facility: [facility] Start: 07-22-2023 End: 07-22-2023 ambulatory Williams Coronado Facility:[facility] Start: 07-22-2023 End: 07-22-2023 ambulatory DO Keagan House Work Phone: [facility] Work Phone: Start: 07-22-2023 End: 07-22-2023 Patient encounter procedure DO Keagan House Work Phone: [facility]-Respiratory Therapy Work Phone: Start: 07-22-2023 Registered Recurring DO Waqar s House Work Phone: [facility] [place] Work Phone: Start: 06-30-2023 ambulatory [facility] Start: 06-19-2023 Evaluation and management of inpatient [facility] Start: 06-18-2023 Evaluation and management of inpatient [facility] Start: 06-18-2023 End: 06-19-2023 Evaluation and management of inpatient BRYON [place] [facility] Start: 06-18-2023 End: 06-18-2023 Emergency department patient visit Bryon Moffett Facility:[facility] Start: 06-18-2023 End: 06-18-2023 Emergency department patient visit DO Keagan Oro Work Phone: [facility]-Emergency Room Work Phone: Start: 05-31-2023 End: 05-31-2023 ambulatory Kamal Chaban Other [facility] Other Start: 05-31-2023 Office outpatient vi sit 15 minutes Kamal Chaban [facility] Start: 05-21-2023 End: 05-21-2023 ambulatory Kamal Chaban Facility:[facility] Start: 05-21-2023 End: 05-21-2023 ambulatory DO Keagan House Work Phone: [facility] Work Phone: Start: 05-21-2023 End: 05-21-2023 Patient encounter procedure Keagan Oro Work Phone: [facility]CT Scan [facility] [place] Work Phone: Start: 03-22-2023 End: 03-22-2023 ambulatory Tony Lieberman Other [facility] Other Start: 03-22-2023 Office outpatient ne w 45 minutes Tony Lieberman [facility] Start: 12-17-2022 End: 12-17-2022 ambulatory Williams Coronado Facility:[facility] Start: 12-10-2022 End: 12-10-2022 ambulatory Williams Coronado Facility:[facility] Start: 12-10-2022 ambulatory Facility:[id number] Start: 11-24-2022 End: 11-24-2022 ambulatory Williams Coronado Facility:[facility] Start: 11-24-2022 End: 11-24-2022 ambulatory MD Johnny Coronado Work Phone: [facility] Work Phone: Start: 11-24-2022 End: 11-24-2022 Patient encounter procedure MD Johnny Coronado Work Phone: [facility] [address] Work Phone: Start: 10-18-2022 Encounter for genera l adult medical examination without abnormal findings DR KEAGAN ORO [facility] Start: 10-15-2022 End: 10-16-[address] KEAGAN ORO Facility:[facility] Start: 10-15-2022 End: 10-16-2022 Encounter for general adult medical examination without abnormal findings DR KEAGAN ORO Facility:[facility] Start: 07-13-2022 End: 07-13-[address] KEAGAN ORO Facility:[facility] Start: 07-07-2022 End: 07-07-[address] KEAGAN ORO Facility:[facility] Start: 01-28-2022 End: 01-29-[address] KEAGAN ORO Facility:[facility] Procedures Date Procedure Procedure Detail Performing Clinician Start: 05-21-2023 CT of chest without contrast DO Keagan Oro Work Phone: Plan of Treatment Date Care Activity Detail Author Start: 11-24-2022 Hemolytic complement CH50 level [facility] Start: 11-24-2022 [facility] Lupus anticoagulant [Interpretation] in Platelet poor plasma [facility] Patient referral [facility] Work Phone: Thrombin time [facility] Payers Date Payer Category Payer Self-pay 1975 Unknown [id number] 2.16.84 [id number] 1975 Unknown [id number] 2.16.84 [id number] 1973 Unknown [id number] 2.16.84 [id number] 1973 Unknown [id number] 2.16.84 [id number] 1973 Unknown [id number] 2.16. [id number] 1959 Unknown [id number] Unknown [id number] 2.16.8 [id number] Unknown [id number] 2.16.8 [id number] Unknown [id number] 2.16.8 [id number] Unknown [id number] 2.16.8 [id number] Unknown [id number] 2.16.8 [id number] Unknown [id number] 2.16.8 [id number] Unknown [id number] 2.16.8 [id number] Social History Date Type Detail Facility Tobacco smoking status NVIS Unknown if ever smoked [facility] Work Phone: Start: 1975 Sex Assigned At Male F [facility] Sex Assigned At Sex Assigned At Bir th [facility] Other Start: 06-18-2023 Tobacco smoking status NHIS Smoker (finding) [facility] Start: 07-22-2023 Tobacco smoking status NVIS Ex-smoker (finding) [facility] Progress note 06-30-2023 Note Date & Type Note Facility 06-30-2023 Note I can follow-up with dermatology. Continue best medical therapy. Continue smoking cessation. Continue calcium channel reyes. [facility] Progress note 06-30-2023 Note Date & Type Note Facility 06-30-2023 Note Subjective Patient ID: Bebo Blair is a 47 y.o. male who presents for Hospital Follow-up (Raynaud's with finger gangrene.). HPI This is a 47-year-old gentleman with Raynaud's and gangrene. He was admitted to the hospital we did a workup CTA and CARLOS PVR were within normal limits. He was a smoker and was counseled on smoking cessation at length. He eventually quit smoking. He is seeing his copy operator tomorrow. I discussed with him Betadine painting the wound dry. Superficial. There is no evidence of infection. No evidence of vascular occlusive disease at this time. Review of Systems Constitutional: Negative for chills, diaphoresis, fatigue and fever. Eyes: Negative for photophobia, pain and discharge. Respiratory: Negative for cough, choking, shortness of breath and wheezing. Cardiovascular: Negative for chest pain, palpitations and leg swelling. Gastrointestinal: Negative for abdominal pain, constipation, diarrhea, nausea and vomiting. Endocrine: Negative for cold intolerance, heat intolerance, polydipsia, polyphagia and polyuria. Genitourinary: Negative for dysuria, flank pain and frequency. Musculoskeletal: Negative for back pain, joint swelling, myalgias and neck pain. Skin: Positive for wound. Negative for color change, pallor and rash. Neurological: Negative for dizziness, seizures, weakness, light-headedness, numbness and headaches. Hematological: Negative for adenopathy. Does not bruise/bleed easily. Psychiatric/Behavioral: Negative for hallucinations and suicidal ideas. All other systems reviewed and are negative. Objective Visit Vitals BP 129/81 (BP Location: Left arm, Patient Position: Sitting, BP Cuff Size: Adult long) Pulse 89 Temp 37.3 ???C (99.1 ???F) (Tympanic) Resp 16 Physical Exam Constitutional: Appearance: Normal appearance. He is normal weight. HENT: Head: Normocephalic and atraumatic. Nose: Nose normal. Mouth/Throat: Mouth: Mucous membranes are moist. Pharynx: Oropharynx is clear. Eyes: Extraocular Movements: Extraocular movements intact. Conjunctiva/sclera: Conjunctivae normal. Pupils: Pupils are equal, round, and reactive to light. Cardiovascular: Rate and Rhythm: Normal rate and regular rhythm. Pulses: Normal pulses. Heart sounds: Normal heart sounds. Pulmonary: Effort: Pulmonary effort is normal. Breath sounds: Normal breath sounds. Abdominal: General: Abdomen is flat. Bowel sounds are normal. Palpations: Abdomen is soft. Musculoskeletal: General: Normal range of motion. Cervical back: Normal range of motion and neck supple. Comments: Raynaud's with gangrene. Skin: General: Skin is warm and dry. Capillary Refill: Capillary refill takes less than 2 seconds. Neurological: General: No focal deficit present. Mental Status: He is alert and oriented to person, place, and time. Mental status is at baseline. Psychiatric: Mood and Affect: Mood normal. Behavior: Behavior normal. Thought Content: Thought content normal. Judgment: Judgment normal. Assessment/Plan Problem List Items Addressed This Visit Other Dry gangrene (CMS/HCC) - Primary I can follow-up with dermatology. Continue best medical therapy. Continue smoking cessation. Continue calcium channel reyes. Diagnosis Plan 1. Dry gangrene (CMS/HCC) No orders of the defined types were placed in this encounter. No results found for this or any previous visit (from the past 36 hour(s)). No follow-ups on file. [facility] Progress note 06-19-2023 Note Date & Type Note Facility 06-19-2023 Note [facility] Vascular Surgery DAILY PROGRESS NOTE Subjective Patient examined at bedside. NAEO. He had CTA bilateral upper extremities done last night, no major occlusions. CARLOS demonstrating normal CARLOS. Denies any new color changes to the hand. Left 5th fingertip remains TTP. Objective Vitals: Vitals: 06/19/23 0751 BP: (!) 157/99 Pulse: 67 Resp: 11 Temp: 36.9 ???C (98.4 ???F) SpO2: I/O last 3 completed shifts: In: 1760.5 (19.6 mL/kg) [P.O.:720; I.V.:40.5 (0.5 mL/kg); IV Piggyback:1000] Out: - (0 mL/kg) Weight: 89.6 kg No intake/output data recorded. Physical Exam Constitutional: General: He is not in acute distress. Appearance: He is not ill-appearing. Cardiovascular: Rate and Rhythm: Normal rate and regular rhythm. Pulses: Normal pulses. Radial pulses are 2+ on the right side and 2+ on the left side. Dorsalis pedis pulses are 2+ on the right side and 2+ on the left side. Posterior tibial pulses are 2+ on the right side and 2+ on the left side. Pulmonary: Effort: Pulmonary effort is normal. No respiratory distress. Abdominal: General: There is no distension. Palpations: Abdomen is soft. Tenderness: There is no abdominal tenderness. Musculoskeletal: General: No swelling. Right lower leg: No edema. Left lower leg: No edema. Skin: General: Skin is warm and dry. Capillary Refill: Capillary refill takes less than 2 seconds. Comments: Dry gangrene over the distal tip of the left small finger, distal digit is erythematous and mildly edematous, exquisitely tender to palpation. Small area of dry scaling near nail fold of right middle finger Neurological: General: No focal deficit present. Mental Status: He is alert and oriented to person, place, and time. Labs: Results from last 7 days Lab Units 06/19/23 0426 06/18/23 1606 WBC AUTO 10*3/uL 7.07 8.35 HEMOGLOBIN g/dL 14.0 14.5 HEMATOCRIT % 40.5 38.8* PLATELETS AUTO 10*3/uL 261 279 Results from last 7 days Lab Units 06/19/23 0426 06/18/23 1606 SODIUM mmol/L 137 137 POTASSIUM mmol/L 4.4 4.7 CO2 mmol/L 24 23 BUN mg/dL 13 21 CREATININE mg/dL 0.86 1.00 Medications: acetaminophen, 650 mg, oral, q6h aspirin, 81 mg, oral, Daily atenolol, 100 mg, oral, Daily atorvastatin, 40 mg, oral, Nightly NIFEdipine XL, 60 mg, oral, Daily pantoprazole, 20 mg, oral, Daily sertraline, 100 mg, oral, Daily varenicline, 1 mg, oral, BID heparin, 0-28 Units/kg/hr, Last Rate: 15 Units/kg/hr (06/19/23 8836) Imaging: [facility] US carlos vasospasms/raynauds bilateral Narrative: Procedure: The pressures in the upper extremities as well as PVR's were evaluated at different segments including the upper and forearm area and index finger. The Doppler waveform was evaluated at the brachial, radial and ulnar arteries. Impression: Notes: Indication: Bilateral finger gangrene Right: Essentially normal PVR waveforms at the upper arm and forearm levels. Brachial systolic number: 148. The radial wrist-brachial index is 1.09. The ulnar wrist-brachial index is 1.07. The pointer finger digit-brachial index is 0.89. Left: Essentially normal PVR waveforms at the upper arm and forearm levels. Brachial systolic number: 150. The radial wrist-brachial index is 1.05. The ulnar wrist-brachial index is 1.03. The pointer finger digit-brachial index is 0.91. Assessment/Plan Ritchie Blair is a 47 y.o. male CTA bilateral upper extremities reviewed by Dr. Mayers. Vessels are patent without severe abnormality, awaiting radiology read. CARLOS demonstrating normal upper CARLOS at wrist and index finger, physiologically flow is adequate. No acute surgical intervention indicated at this time Will plan to discharge patient on best medical therapy- DAPT, statin, CCB.. Short course of antibiotics for any possible secondary infection of the left 5th finger. Educated patient on the importance of smoking cessation. Avoid triggers including the cold, caffeine as well. We will follow up closely outpatient, if he has acute flare will consider admission for flolan infusion Patient seeing [facility] but has not followed up in a few months. He would prefer to stay in [place]. Advised him to call to set up appointment [facility] Evaluation note 05-31-2023 Note Date & Type Note Facility 05-31-2023 Evaluation note Encounter Date Diagnosis Assessment Notes May, Chronic obstructive pulmonary disease, unspecified COPD type (ICD-10 - J44.9) May, Lung nodule (ICD-10 - R91.1) We will continue to follow-up on the lung nodule with a [address], and see him for follow-up after that May, 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) May, Tobacco use disorder (ICD-10 - F17.200) [facility] Other Evaluation note 03-22-2023 Note Date & Type Note Facility 03-22-2023 Evaluation note Encounter Date Diagnosis Assessment Notes Feb, Chronic obstructive pulmonary disease, unspecified COPD type (ICD-10 - J44.9) Feb, Lung nodule (ICD-10 - R91.1) Feb, 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) Feb, Tobacco use disorder (ICD-10 - F17.200) [facility] Other Evaluation note Note Date & Type Note Facility Evaluation note No assessment information availa ble [facility] Work Phone: Evaluation note Note Date & Type Note Facility Evaluation note Diagnosis Onset Date Buergers disease chronic Dry gangrene chronic Inflammation chronic Pain chronic Raynaud disease chronic Tobacco abuse resolved [facility] Work Phone: History general Narrative - Reported Note Date & Type Note Facility History general Narrative - Reported Type Medical History hypertension Medical History Esophageal reflux Surgical History cholecystectomy [facility] Other Summary Purpose Family History No Family History Records FoundNo Family History Records FoundNo Family History Records FoundNo Family History Records Found Advance Directives No Advanced Directives Records Found Advance Directive Response Recorded Date/ Time Advance Directives No November 25, 2022 11:23am Advance Directive Response Recorded Date/ Time Advance Directives No November 25, 2022 10:23am Chief Complaint and Reason for Visit Chief Complaint r91.1 Chief Complaint r91.1 Bilat Hand Infections Chief Complaint r91.1 Bilat Hand Infections Open Wound J84.10 I27.0 M35.9 Reason for Visit Buergers disease Dry gangrene Inflammation Pain Raynaud disease Tobacco abuse Additional Source Comments (unrecognized sect ion and content) No Status Records FoundNo Status Records FoundNo Status Records FoundNo Status Records Found INFORMATION SOURCE (unrecogn ized section and content) DATE CREATED AUTHOR 10/19/2022 [facility] DATE CREATED AUTHOR AUTHOR'S ORGANIZ ATION 01/05/2023 [facility] DATE CREATED AUTHOR AUTHOR'S ORGANIZ ATION 07/05/2023 [facility] DATE CREATED AUTHOR AUTHOR'S ORGANIZ ATION 11/03/2023 [facility] Care Teams (unrecognized sec tion and content) Team Status: Inactive Member Role Status Dates Johnny Coronado MD Attending Provider Active Team Status: Active Member Role Status Dates Keagan Oro , Primary Care Provider Active Team Status: Inactive Member Role Status Dates Tony Lieberman MD Attending Provider Active Keagan Oro DO Primary Care Provider Active Team Status: Active Member Role Status Dates Agustina Andrews , MANAGER THERAPY-C Primary Care Provider Active Team Status: Inactive Member Role Status Dates Agustina Andrews MANAGER THERAPY-C Primary Care Provider Active Bryon Moffett DO Emergency Provider Active Team Status: Active Member Role Status Dates Keagan Oro DO Primary Care Provider Active Jennifer Koenig APRN Attending Provider Active Team Status: Inactive Member Role Status Dates Agustina Andrews , MANAGER THERAPY-C Primary Care Provider Active Williams Coronado MD Attending Provider Active Goals (unrecognized section and content) Goals may be documented in a n alternate sectionNo InformationGoals may be documented in an alternate sectionNo InformationGoals may be documented in an alternate sectionGoals may be documented in an alternate section REASON FOR VISIT (unrecogniz ed section and content) Ref by Dr. Coronado for Abnorm al chest CT2 mo f/u COPD, Lung Nodule, Raynaud's Disease FOR RECORDS PERTAINING TO PATIENTS WHO ARE OR HAVE BEEN ENROLLED IN A CHEMICAL DEPENDENCY/SUBSTANCEABUSE PROGRAM, SOME INFORMATION MAY BE OMITTED. This clinical summary was aggregated from multiple sources. Caution should be exercised in using it in the provision of clinical care. This summary normalizes information from multiple sources, and as a consequence, information in this document may materially change the coding, format and clinical context of patient data. In addition, data may be omitted in some cases. CLINICAL DECISIONS SHOULD BE BASED ON THE PRIMARY CLINICAL RECORDS. [facility]. provides no warranty or guarantee of the accuracy or completeness of information in this document.
[2023-12-06 07:48] LABS: Basophils Absolute Auto 0.1 10^3/uL (0.0-0.1); Basophils Percent Auto 0.8 % (0.2-2.0); Eosinophils Absolute Auto 0.1 10^3/uL (0.0-0.7); Eosinophils Percent Auto 0.8 % (0.9-7.0); Hematocrit 41.2 % (42.0-54.0); Hemoglobin 13.5 g/dL (14.0-18.0); Immature Granulocytes Abs Auto 0.03 10^3/uL (0.00-0.03); Immature Granulocytes Pct Auto 0.3 % (0.0-0.5); Lymphocytes Absolute Auto 2.1 10^3/uL (1.2-3.8); Lymphocytes Percent Auto 20.8 % (20.5-60.0); Mean Corpuscular HGB Conc 32.8 g/dL (29.9-35.2); Mean Corpuscular Hemoglobin 31.9 pg (25.9-34.0); Mean Corpuscular Volume 97.4 fL (80.0-94.0); Mean Platelet Volume 10.2 fL (9.5-13.5); Monocytes Absolute Auto 0.9 10^3/uL (0.3-0.8); Neutrophils Absolute Auto 6.9 10^3/uL (1.4-6.5); Neutrophils Percent Auto 68.3 % (43.0-75.0); Platelet Count 217 10^3/uL (150-450); Red Blood Count 4.23 10^6/uL (4.70-6.10); Red Cell Distribution Width 14.7 % (11.0-15.0)
[2023-12-06 08:00] LABS: Erythrocyte Sedimentation Rate 49 mm/hr (<=20)
[2023-12-06 08:46] LABS: Bilirubin Urine NEGATIVE (NEGATIVE); Blood Urine NEGATIVE (NEGATIVE); Clarity Urine CLEAR (CLEAR); Color Urine LT. YELLOW (YELLOW); Glucose Urine UA NEGATIVE (NEGATIVE); Ketones Urine NEGATIVE (NEGATIVE); Leukocyte Esterase Urine NEGATIVE (NEGATIVE); Nitrite Urine NEGATIVE (NEGATIVE); Protein Urine NEGATIVE (NEG/TRACE); Specific Gravity Urine <=1.005 (1.005-1.025); Urobilinogen Urine 0.2 EU/dL (0.2-1.0)
[2023-12-06 08:59] LABS: Bacteria Urine NONE SEEN #/HPF (NONE SEEN); Cast Seen? NONE SEEN #/LPF (NONE SEEN); Crystals Seen? None Seen #/HPF (None Seen); Mucus Urine NONE SEEN (NONE SEEN); RBC Urine NONE SEEN #/HPF (0-2); Squamous Epithelial Cell Urine RARE #/LPF (NONE/RARE); WBC Urine NONE SEEN #/HPF (NONE SEEN)
[2023-12-06 11:25] LABS: Alanine Aminotransferase 61 U/L (16-63); Albumin Globulin Ratio 0.9; Albumin Level 3.8 g/dL (3.4-5.0); Alkaline Phosphatase 123 U/L (46-116); Anion Gap 15.8; Aspartate Amino Transferase 38 U/L (15-37); BUN Creatinine Ratio 17.4; Bilirubin Total 0.4 mg/dL (0.2-1.0); C Reactive Protein 1.85 mg/dL (<=0.50); Calcium 9.5 mg/dL (8.5-10.1); Carbon Dioxide 24.3 mmol/L (21.0-32.0); Chloride 101 mmol/L (98-107); Estimated GFR (African America >60 (>=60); Estimated GFR (Non-African Ame >60 (>=60); Globulin 4.2 g/dL; Glucose 105 mg/dL (74-106); Potassium 4.1 mmol/L (3.5-5.1); Sodium 137 mmol/L (136-145)
[2023-12-07 05:07] LABS: Complement C3, Serum 147 mg/dL (82-167); Complement C4, Serum 38 mg/dL (12-38)
[2023-12-07 16:09] LABS: Complement, Total (CH50) >60 U/mL (>41)
== END 2023-12-06 07:01 | disposition home or self-care (01) ==
LOC: LAB 07:02
PROVIDERS: PCP Nurse Practitioner Family; Visit Provider Internal Medicine Rheumatology
DX: M34.9 Systemic sclerosis, unspecified (principal); M19.90 Unspecified osteoarthritis, unspecified site; Z51.81 Encounter for therapeutic drug level monitoring; R91.1 Solitary pulmonary nodule
CPT/HCPCS: 36415; 80053; 81001; 85025; 85652; 86140; 86160; 86162

== ENCOUNTER 2024-06-03 08:20 | Outpatient (OUT) | payer BC, SELFPAY ==
--- OUTSIDE RECORDS SUMMARY | 2024-06-03 08:22 | XMS_ITS | CCD ---
Author Organization [facility] Care Team Providers Care Multi Disciplined Language Analyst Name Role Phone HOUSE, DR CROOKS Consulting [...] Attending Unavailable MD Johnny Coronado Attending Provider [phone] Tony Lieberman Unavailable MD Tony Lieberman Attending Provider [phone] DO Keagan Oro Primary Care Provider MD Tony Lieberman Attending Provider DO Keagan Oro Primary Care Provider KAVYA Andrews Primary Care Provider [phone] DO Bryon Moffett Emergency Provider RITU Koenig Attending Provider [phone] MD Williams Coronado Attending Provider [phone] DO Keagan Oro Primary Care Provider [phone] RITU Koenig Attending Provider KAVYA Andrews Primary Care Provider DO Enrico Mc Attending Provider Jennifer Koenig Admitting Unavailable Jennifer Koenig Attending Unavailable Keagan Oro Primary Care Unavailable Williams Coronado Admitting Unavailable Williams Coronado Attending Unavailable Agustina Andrews Primary Care Unavailable Enrico Mc Admitting Unavailable Enrico Mc Attending Unavailable Agustina Andrews Primary Care Unavailable Efren Esteves Attending Unavaila Efren Wade Admitting Unavaila Agustina Cruz Primary Care Unavailable Bryon Moffett Attending Unavailable Agustina Andrews Primary Care Unavailable Bryon Moffett Admitting Unavailable Chaban, Kamal Admitting Unavailable Chaban Kamal Attending Unavailable Keagan Oro [facility] Unavailable CHYNA AndrewsC Agustina Jennings Primary Care Provider MD Efren Esteves Attending Provider HIREN MAYERS Attending Unavailable HIREN MAYERS Referring Unavailable CHOLO ANDERSON Referring Unavailable BRYON MOFFETT Referring Unavailable HIREN MAYERS Admitting Unavailable HIREN MAYERS Attending Unavailable Medications Current Medications Medication Drug Class(es) Dates Sig (Normalized) Sig (Original) atenolol 100 mg oral tablet (9 sources) beta-Adrenergic Reyes Start: 06-18-2023 take 150 mg by mouth once daily Atenolol Active 150 MG PO Daily June 18, 2023 1:00am Start: 06-18-2023 take 100 mg by mouth once kendy y Atenolol Active 100 MG PO Daily June 18, 2023 12:00am take 1 tablet by demar th every twenty-four hours Atenolol 100 MG 1 tablet Orally Once a day Active cholestyramine resin 4000 mg powder for oral suspension (6 sources) Bile Acid Sequestrant Start: 06-22-2023 take 1 dose by mouth twice daily Cholestyramine (With Sugar) Active 4 GM PO Twice daily June 22, 2023 1:00am administer w/meal; avoid other meds within 1hr before or 4-6hr after dose clopidogrel 75 mg oral tablet (6 sources) [id number] Platelet Inhibitor Start: 06-22-2023 take 1 tablet by mouth once daily Clopidogrel (Plavix) 75 mg Tablet Active 75 MG PO Daily June 22, 2023 1:00am 24 hr NIFEdipine 60 mg extended release oral tablet (9 sources) Dihydropyridine Calcium Channel Reyes Start: 06-18-2023 take 60 mg by mouth once daily Nifedipine Active 60 MG PO Daily June 18, 2023 1:00am take 1 tablet by demar th every twenty-four hours NIFEdipine ER 60 MG 1 tablet on an empty stomach Orally Once a day Active omeprazole 20 mg delayed release oral capsule (9 sources) Proton Pump Inhibitor Start: 06-18-2023 take 20 mg by mouth once daily Omeprazole Active 20 MG PO Daily June 18, 2023 1:00am take 1 capsule by mouth once sakshi ly Omeprazole 20 MG 1 capsule 30 minutes before morning meal Orally Once a day Active sertraline 100 mg oral tablet (9 sources) Serotonin Reuptake Inhibitor Start: 06-18-2023 take 100 mg by mouth once daily Sertraline Active 100 MG PO Daily June 18, 2023 1:00am take 1 tablet by demar th every twenty-four hours Sertraline HCl 100 MG 1 tablet Orally Once a day Active varenicline 1 mg oral tablet (9 sources) Partial Cholinergic Nicotinic Agonist Start: 06-18-2023 take 1 mg by mouth twice daily Varenicline Active 1 MG PO Twice daily June 18, 2023 1:00am Varenicline Tart rate 1 MG as directed Orally Active Completed/Discontinued Medications Medication Drug Class(es) Dates Sig (Normalized) Sig (Original) cefdinir 300 mg oral capsule (7 sources) Cephalosporin Antibacterial Start: 06-18-2023 End: 07-07-2023 take 300 mg by mouth twice daily Cefdinir Discontinued 300 MG PO Twice daily June 18, 2023 1:00am July 07, 2023 8:19am doxycycline monohydrate 100 mg oral capsule (7 sources) Tetracycline-class Drug Start: 06-18-2023 End: 07-07-2023 take 100 mg by mouth twice daily Doxycycline Monohydrate Discontinued 100 MG PO Twice daily June 18, 2023 1:00am July 07, 2023 8:19am X 10 DAYS mupirocin 0.02 mg/mg topical ointment (7 sources) RNA Synthetase Inhibitor Antibacterial Start: 06-18-2023 End: 06-22-2023 Mupirocin Discontinued 0 .ROUTE .COMPLEX June 18, 2023 1:00am June 22, 2023 8:59am APPLY TO DISCOLORED AREAS Problems Active Problems Problem Classification Problem Date Documented Date Episodic/Chronic Chronic obstructive pulmonary disease and bronchiectasis (13 sources) Chronic obstructive lung disease; Translations: [Chronic obstructive pulmonary disease, unspecified] Chronic Chronic ulcer of skin (1 source) Non-pressure chronic ulcer of skin of other sites with unspecified severity; Translations: [Non-pressure chronic ulcer of skin of other sites with unspecified severity] Onset: 10-19-2023 Chronic Esophageal disorders (5 sources) Gastroesophageal reflux disease; Translations: [Gastro-esophageal reflux disease without esophagitis] 12-14-2023 Chronic Gangrene (20 sources) Raynaud's disease; Translations: [Raynaud's syndrome with gangrene] Onset: 06-18-2023 Chronic Immunity disorders (2 sources) Autoimmune disease; Translations: [Other specified disorders involving the immune mechanism, not elsewhere classified] 08-12-2023 Chronic Other and ill-defined heart disease (3 sources) Diastolic dysfunction; Translations: [Other ill-defined heart diseases] 12-23-2023 Chronic Other and ill-defined heart disease (4 sources) Other ill-defined heart diseases; Translations: [Heart disease, unspecified] 12-23-2023 Chronic Other circulatory disease (2 sources) Raynaud's syndrome without gangrene; Translations: [Raynaud's syndrome] Onset: 10-18-2022 07-22-2023 Chronic Other circulatory disease (7 sources) Vascular disorder of extremity; Translations: [Disorder of arteries and arterioles, unspecified] 06-18-2023 Chronic Other circulatory disease (6 sources) Thromboangiitis obliterans; 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]] 06-22-2023 Chronic Other circulatory disease (3 sources) 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]; 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]] 07-22-2023 Chronic Other diseases of veins and lymphatics (4 sources) Calcified lymph nodes; Translations: [Other specified noninfective disorders of lymphatic vessels and lymph nodes] 12-23-2023 Chronic Other diseases of veins and lymphatics (5 sources) Other specified noninfective disorders of lymphatic vessels and lymph nodes; Translations: [Other noninfectious disorders of lymphatic channels] 12-23-2023 Chronic Other lower respiratory disease (2 sources) Parietoalveolar pneumopathy; 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, unspecified] Chronic Other lower respiratory disease (5 sources) Interstitial lung disease; 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, unspecified] 12-14-2023 Chronic Other lower respiratory disease (3 sources) Nodule of lung; Translations: [Solitary pulmonary nodule] 12-14-2023 Episodic Other lower respiratory disease (4 sources) Solitary pulmonary nodule; Translations: [Solitary pulmonary nodule] Onset: 05-21-2023 Episodic Other lower respiratory disease (4 sources) Cavitation of lung; Translations: [Other disorders of lung] 12-23-2023 Episodic Other lower respiratory disease (5 sources) Other disorders of lung; Translations: [Other diseases of lung, not elsewhere classified] 12-23-2023 Episodic Other screening for suspected conditions (not mental disorders or infectious disease) (2 sources) Radiology result abnormal; Translations: [Abnormal findings on diagnostic imaging of other specified body structures] Chronic Pulmonary heart disease (11 sources) Secondary pulmonary hypertension; Translations: [Other secondary pulmonary hypertension] Onset: 07-22-2023 12-23-2023 Chronic Residual codes; unclassified (6 sources) Pain; Translations: [Pain, unspecified] 07-07-2023 Episodic Residual codes; unclassified (2 sources) Tobacco user; Translations: [Tobacco use] 07-07-2023 Episodic Residual codes; unclassified (1 source) Pain, unspecified; Translations: [Generalized pain] 07-22-2023 Episodic Residual codes; unclassified (2 sources) Tobacco use; Translations: [Tobacco use disorder] 07-22-2023 Episodic Substance-related disorders (18 sources) Tobacco user; Translations: [Nicotine dependence, unspecified, uncomplicated] Chronic Systemic lupus erythematosus and connective tissue disorders (10 sources) CREST syndrome; 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] Onset: 01-17-2024 12-23-2023 Chronic Unclassified (3 sources) CONTACT W/AND (SUSP) EXPOS COVID-19; Translations: [CONTACT W/AND (SUSP) EXPOS COVID-19] Onset: 07-15-2022 Unclassified (4 sources) Inflammatory disorder; Translations: [Inflammation] 06-22-2023 Viral infection (1 source) COVID-19; Translations: [COVID-19] Onset: 07-11-2022 Past or Other Problems Problem Classification Problem Date Documented Da te Episodic/Chronic Gangrene (8 sources) Gangrenous disorder; Translations: [Gangrene, not elsewhere classified] Onset: 06-18-2023 06-18-2023 Episodic Unclassified (1 source) CONTACT W/AND (SUSP) EXPOS COVID-19; Translations: [CONTACT W/AND (SUSP) EXPOS COVID-19] Onset: 07-13-2022 Results Test Name Value Interpretation Reference Range Facility 36on 05-17-2024 36 Contacted patient to get him set up for a year follow up (Raynauds). Let him know we could do a 30 day refill (atorvastatin) and the provide would do the follow up and go from there. Patient has to discuss follow up appt with . Calling 05/18 at 12 pm to schedule 1 year follow up. Normal [facility] CT chest wo con 04-28-2024 CT chest wo [facility] [place] [address] CT Scan Report Signed Patient: Ritchie Blair MR#: [id number] 966 : 1975 Acct:[id number] Age/Sex: 48 / M ADM Date: 04/28/24 Loc: CT Room: Type: [facility] Attending Dr: Efren Esteves MD Copies to: Efren Esteves MD Ordering Provider: Efren Esteves MD Date of Service: 04/28/24 CT/CT chest wo con: R91.1 - Solitary pulmonary nodule CT CHEST WITHOUT IV CONTRAST: CLINICAL HISTORY: Follow-up lung nodule COMPARISON: High-resolution CT chest 05/21/2023 and 12/10/2022 TECHNIQUE: Spiral images were obtained through the chest without IV contrast. This CT exam was performed using one or more following dose reduction techniques: Automated exposure control, adjustment of the mA and/or kV according to patient size, or use of iterative reconstruction technique. FINDINGS: Mediastinum:Thoracic aorta appears normal in caliber. Pulmonary trunk appears nondilated. No pericardial effusion. No lymphadenopathy. Multiple prominent mediastinal lymph nodes are present. The esophagus is grossly unremarkable. Lungs:Mild lower lobe atelectasis/scarring. No consolidation pneumothorax or pleural effusion. The previously identified cavitary nodule involving the left lower lobe appears to have lost its cavitary component now appearing more solid still measuring 6 mm best seen on series 4 image 48. No new or enlarging suspicious pulmonary nodules. Abd:No acute findings. Soft tissues/Bones: Soft tissues surrounding the chest wall demonstrate no acute findings. Osseous structures demonstrate degenerative change. CT/CT chest wo con IMPRESSION: The previously identified cavitary nodule involving the posterior basilar segment of the left lower lobe appears to have lost its cavitary component now appearing more solid in nature grossly unchanged in size when compared to the prior CT study from 2022. No new or enlarging suspicious pulmonary nodule is noted. Prominent mediastinal lymph nodes likely reactive and appear grossly unchanged. Attention on follow- up is recommended. Impression dictated by: Feliciano Rios Jr., D.O.04/28/2024 9:10 AM Dictation Location: [place] [address] Transcribed By: [facility] 04/28/24909 Dictated By: Feliciano Rios Jr, DO 04/28/24906 Signed By: 04/28/24 09 Normal [facility] E[facility] echo transthoracicon [facility] echo transthoracic [facility] Main [place] [address] [place] [address] Echocardiogram Signed Patient: Ritchie Blair MR#: [id number] [id number] : 1975 Acct:[id number] Age/Sex: 48 / M ADM Date: 01/17/24 Loc: Room: Type: [facility] Attending Dr: Enrico Mc DO Ordering Provider: Enrico Mc DO Date of Service: 01/17/24 E[facility] echo transthoracic: I27.29 - Other secondary pulmonary hypertension Copies to: DO Micheal Glover MD BSA: 2.1 m2 BP: 150/88 mmHg HR: 80 Reason For Study: I27.29 - Other secondary pulmonary hypertension History: Raynauds, Smoker, Hypertension Interpretation Summary Mild concentric left ventricular hypertrophy. Ejection Fraction = 60-65%. A variety of Doppler measurements indicate normal left ventricular diastolic function. The left atrium appears mildly dilated. There is trace tricuspid regurgitation. Procedure/Quality: The study was technically good in quality. Left Ventricle: The left ventricular size is normal. Mild concentric left ventricular hypertrophy. Ejection Fraction = 60-65%. A variety of Doppler measurements indicate normal left ventricular diastolic function. No left ventricular thrombus or mass is seen. Left Atrium: The left atrium appears mildly dilated. The atrial septum appears normal. Right Atrium: The right atrium appears normal in size. Right Ventricle: The right ventricular size, thickness and function are normal. Aortic Valve: The aortic valve is normal in structure and function. Mitral Valve: The mitral valve is normal in structure. Tricuspid Valve: The tricuspid valve is normal. There is trace tricuspid regurgitation. Right ventricular systolic pressure is normal. Pulmonic Valve: The pulmonic valve is not well visualized. Arteries: The aortic root is normal size. The aortic arch was visualized and no abnormalities were seen. Pericardium/Pleura: No pericardial effusion seen. There is no pleural effusion. IVC/Hepatic Veins: The inferior vena cava is normal in size, with a normal collapsibility index. Measurements with Normals IVSd: 1.2 cm (0.7-1.1 cm)LVIDd: 4.1 cm (3.7-5.4 cm) LVPWd: 1.2 cm (0.7-1.1 cm)LVIDs: 2.6 cm (2.3-3.6 cm) LA dimension: 4.6 cm (2.3-4.0 cm)Ao root diam: 3.0 cm(2.0-3.6 cm) asc Aorta Diam: 3.0 cm(2.1-3.4cm) Doppler with Normals RVSP(TR): 22.1 mmHg (18-35mmHg) LV V1 max: 117.0 cm/sec (0.7-1.7m/s)MV E max lux: 67.9 cm/sec(0.8-1.3m/s) MV A max lux: 63.1 cm/sec(0.0-0.0m/s) MV E/A: 1.1 (<1.5) MMode/2D Measurements Calculations RVDd: 3.5 cm FS: 37.7 % Ao root area: 7.2 ss4MRCe ap4: 8.1 cm TAPSE: 3.0 cm EDV(Teich): EDV(MOD-sp4): 75.9 ml 110.0 ml ESV(Teich): LVLs ap4: 7.1 cm 24.1 ml ESV(MOD-sp4): EF(Teich): 68.2 % 48.6 ml EF(MOD-sp4): 55.8 % __ SV(MOD-sp4): LAV(MOD-sp4): LA A2 area: 19.0 cm2 61.4 ml 65.5 ml LAV(MOD-sp2): LA A4 area: 22.9 cm2 54.0 ml LA length (vol): 6.3 cm LA vol: 59.0 ml LA vol index: 27.7 ml/m2 Doppler Measurements Calculations MV dec time: E/E' lat: 6.6 Ao V2 max: LV V1 max P.20 sec E/E' med: 7.6 151.0 cm/sec 5.5 mmHg Ao max P.1 mmHg LV V1 mean PG: Ao mean P.0 mmHg 3.0 mmHg Ao V2 mean: LV V1 mean: 101.0 cm/sec 80.1 cm/sec Ao V2 VTI: 27.2 cm LV V1 VTI: 22.8 cm __ TV max PG: TR max lux: 19.0 mmHg 218.4 cm/sec TR max P.1 mmHg RAP systole: 3.0 mmHg Transcribed By: SCV Performed At: 01/17/24 0802 Signed By: Micheal Ratliff MD 01/17/24 1356 Normal [facility] echo transthoracicon [facility] echo transthoracic [facility] [place] [address] Echocardiogram Signed Patient: Ritchie Blair MR#: [id number] 966 : 1975 Acct:[id number] Age/Sex: 47 / M ADM Date: 07/22/23 Loc: RT Room: Type: [facility] Attending Dr: Williams Coronado MD Ordering Provider: Williams Coronado MD Date of Service: 07/22/23/ ECH/E[facility] echo transthoracic: PULMONARY HYPERTENSION, PULMONARY FIBROSIS Copies [...] mmHg RAP systole: 5.0 mmHg Transcribed By: SCBruce Performed At: 07/22/23 1033 Signed By: Dat Knox MD 07/22/23 1842 [facility] Follow-Upon 06-30-2023 Follow-Up [id number] Jair Blair 1975 M Date Provider Department Center 06/30/2023 384-HIREN MAYERS HVCVASENDO [facility] No family history on file Level of Service:60660 MD OFFICE/OUTPATIENT ESTABLISHED MOD MDM 30-39 MIN Reason for Visit and Comments: Hospital Follow-up [832] - Raynaud's with finger gangrene. [facility] 30on 06-19-2023 30 The patient is Moder ately Stable - Low risk of patient condition declining or worsening The patient's goals for the shift include rest The clinical goals for the shift include VSS, pain control Over the shift, the patient did make progress toward the following goals. [facility] 30 Problem: Chronic Conditions and Co-morbidities Goal: Patient's chronic conditions and co-morbidity symptoms are monitored and maintained or improved Outcome: Progressing The patient is Moderately Stable - Low risk of patient condition declining or worsening The patient's goals for the shift include comfort/rest The clinical goals for the shift include VSS/Comfort Wounds remain dry and painful. Independent with care. Vasular as primary. [facility] ANTI-XA (HEPARIN LEVEL)on HEPARIN UNFRACTIONATED (U/ML) IN PPP BY CHROMOGENIC METHOD 0.18 IU/mL Low 0.3-0.7 [facility] Comment on above: Result Comment: Hailey roxaban and Apixaban will interfere with the anti Xa assay used to monitor UFH and LMWH. Performed By: #### L [id number] #### [facility] ([facility]) [address] [place] [address] HEPARIN UNFRACTIONATED (U/ML) IN PPP BY CHROMOGENIC METHOD 0.30 IU/mL Normal 0.3-0.7 [facility] Comment on above: Result Comment: Hailey roxaban and Apixaban will interfere with the anti Xa assay used to monitor UFH and LMWH. Performed By: #### L [id number] #### [facility] ([facility]) [address] [place] [address] BASIC METABOLIC PANELon 05-27 Anion gap [Moles/Vol] 10 mmol/L Normal 7-[address] [facility] Comment on above: Performed By: #### L [id number] #### [facility] ([facility]) [address] [place] [address] Calcium [Mass/Vol] 8.8 mg/dL Normal 8.6-10.3 [facility] Comment on above: Performed By: #### L [id number] #### [facility] ([facility]) [address] [place] [address] Chloride [Moles/Vol] 107 mmol/L Normal 98-107 [facility] Comment on above: Performed By: #### L [id number] #### [facility] ([facility] [address] [place] [address] CO2 [Moles/Vol] 24 mmol/L Normal 21-31 [facility] Comment on above: Performed By: #### L [id number] #### [facility] ([facility] [address] [place] [address] Creatinine [Mass/Vol] 0.86 mg/dL Normal 0.70-1.[address] [facility] Comment on above: Performed By: #### L [id number] #### [facility] ([facility]) [address] [place] [address] GLOMERULAR FILTRATION RATE ML/MIN/1.73 SQ M.PREDICTED 106.1 mL/min/1.73m*2 Normal >60.0 [facility] Comment on above: Result Comment: [facility]???s estimated glomerular filtration rate (eGFR) will no [...] individuals. Performed By: #### L [id number] #### [facility] ([facility]) [address] [place] [address] Glucose [Mass/Vol] 109 mg/dL High 70-100 [facility] Comment on above: Performed By: #### L [id number] #### [facility] ([facility]) [address] [place] [address] Potassium [Moles/Vol] 4.4 mmol/L Normal 3.5-5.[address] [facility] Comment on above: Performed By: #### L [id number] #### [facility] ([facility]) [address] [place] [address] Sodium [Moles/Vol] 137 mmol/L Normal 136-145 [facility] Comment on above: Performed By: #### L [id number] #### [facility] ([facility]) [address] [facility] [place] [address] Urea nitrogen [Mass/Vol] 13 mg/dL Normal 7-25 [facility] Comment on above: Performed By: #### L [id number] #### [facility] ([facility]) [address] [place] [address] UREA NITROGEN/CREATININE (MASS RATIO) IN SER/PLAS 15.1 Normal [facility] Comment on above: Performed By: #### L [id number] #### [facility] ([facility]) [address] [place] [address] CBCon 06-19-2023 Erythrocyte distribution width (RBC) [Ratio] 13.8 % Normal 11.5-15.0 [facility] Comment on above: Performed By: #### L [id number] #### [facility] ([facility]) [address] [place] [address] ERYTHROCYTE MEAN CORPUSCULAR HEMOGLOBIN CONCENTRATION (G/DL) BY AUTOMATED 34.6 g/dL Normal 32.0-35.0 [facility] Comment on above: Performed By: #### L [id number] #### [facility] ([facility]) [address] [facility] [place] [address] Hematocrit (Bld) [Volume fraction] 40.5 % Normal 39.0-55.0 [facility] Comment on above: Performed By: #### L [id number] #### [facility] ([facility]) [address] [place] [address] Hemoglobin (Bld) [Mass/Vol] 14.0 g/dL Normal 13.0-17.0 [facility] Comment on above: Performed By: #### L [id number] #### [facility] ([facility]) [address] [place] [address] MCH (RBC) [Entitic mass] 33.9 pg High 27.0-33.0 [facility] Comment on above: Performed By: #### L [id number] #### [facility] ([facility]) [address] [place] [address] MCV (RBC) [Entitic vol] 98.1 fL High 82.0-98.0 [facility] Comment on above: Performed By: #### L [id number] #### [facility] ([facility]) [address] [place] [address] PLATELETS (10*3/UL) IN BLOOD AUTOMATED COUNT 261 10*3/uL Normal 150-400 [facility] Comment on above: Performed By: #### L [id number] #### [facility] ([facility]) [address] [place] [address] RBC (Bld) [#/Vol] 4.13 10*6/uL Low 4.20-5.70 [facility] Comment on above: Performed By: #### L [id number] #### [facility] ([facility]) [address] [place] [address] WBC (Bld) [#/Vol] 7.07 10*3/uL Normal 4.00-10.60 [facility] Comment on above: Performed By: #### L [id number] #### [facility] ([facility]) [address] [facility] [place] [address] DSon 06-19-2023 DS Admission Admitted 06/18/2023 for [...] Your Medications These medications were sent to [facility]/pharmacy #[id number] - [place], [place] - [address] [facility] [address], [place] [address] aspirin 81 mg EC tablet atorvastatin 40 [...] In process Rheumatoid factor In process Normal [facility] 30on 06-18-2023 30 The patient is Moder ately Stable - Low risk of patient condition declining or worsening The patient's goals for the shift include comfort, food The clinical goals for the shift include stable vitals Over the shift, the patient did make progress toward the following goals. Problem: Skin/Tissue Integrity - Adult Goal: Skin integrity remains intact Outcome: Progressing Flowsheets (Taken 06/18/2023 152) Skin integrity remains intact: Monitor for areas of redness and/or skin breakdown Goal: Incisions, wounds, or drain sites healing without S/S of infection Outcome: Progressing Flowsheets (Taken 06/18/20231523) Incisions, wounds, or drain sites healing without [...] at discharge Outcome: Progressing Flowsheets (Taken 06/18/2023 152) Absence of infection at discharge: Assess and monitor for signs and symptoms of infection Monitor all insertion sites i.e., indwelling lines, tubes and drains Normal [facility] ANAon 06-18-2023 ANASTASIIA PATTERN Homogenous and speckled Normal [facility] Comment on above: Performed By: #### L [id number] #### [facility] ([facility]AK[facility]) [address] [place] [address] ANASTASIIA TITER 1:640 High <=1:40 [facility] Comment on above: Result Comment: Test performed using ARLINE IFA ANASTASIIA Hep-2 Test, a pre-standardized assay designed for the qualitative and semi-quantitative detection of antinuclear antibodies. Performed By: #### L [id number] #### [facility] ([facility]) [address] [place] [address] ANTI-XA (HEPARIN LEVEL)on HEPARIN UNFRACTIONATED (U/ML) IN PPP BY CHROMOGENIC METHOD 0.41 IU/mL Normal 0.3-0.7 [facility] Comment on above: Result Comment: [place] roxaban and Apixaban will interfere with the anti Xa assay used to monitor UFH and LMWH. Performed By: #### L [id number] #### [facility] ([facility]) [address] [place] [address] HEPARIN UNFRACTIONATED (U/ML) IN PPP BY CHROMOGENIC METHOD >1.00 Critically high 0.3-0.7 [facility] Comment on above: Order Comment: Anti- Xa heparin level added per protocol. Actual Anti-Xa heparin level for pharmacy use = 1.46 international {unit/units:[id number]} /mL Result Comment: [place] roxaban and Apixaban will interfere with the anti Xa assay used to monitor UFH and LMWH. Performed By: #### L [id number] #### [facility] ([facility]) [address] [place] [address] APTTon 06-18-2023 ACTIVATED PARTIAL THROMBOPLASTIN TIME IN PPP BY COAGULATION ASSAY >200.0 Critically high 25.0-35.0 [facility] Comment on above: Order Comment: Basel ine aPTT before initiating heparin infusion. Result Comment: Clin ical significance of the APTT is questionable in the presence of heparin. Performed By: #### L [id number] #### [facility] ([facility]) [address] [place] [address] Activated partial thrombopla stin time (aPTT) in platelet poor plasma by coagulation aOrdered By: Williams Krause on 06-18-2023 aPTT Coag (PPP) [Time] 28.0 s 25.1-36.5 [facility] Comment on above: A hematocrit value g reater than 55% may lead to inaccurate results in coagulation testing. Patients having hematocrit values >55% require a special collection tube for coagulation studies. Please contact the laboratory at [phone] for redraw instructions. Automated basophil %Ordered By: Williams Krause on 06-18-2023 Basophils/100 WBC (Bld) 1.3 % Normal . [facility] Comment on above: Performed By: #### P T, PTT, CBC, BMP #### [facility] [address] [place] [address] Automated basophil countOrde red By: Williams Krause on 06-18-2023 Basophils (Bld) [#/Vol] 0.1 10*3/uL Normal 0.0-0.2 [facility] Comment on above: Result Comment: PERF ORMED BY: [place] [address] PATHOLOGIST POLE FRAMER MACHINE SYMONE MACHADO M.D. Performed By: #### P T, PTT, CBC, BMP #### [address] Automated blood monocyte cou ntOrdered By: Williams Krause on 06-18-2023 Monocytes (Bld) [#/Vol] 0.7 10*3/uL Normal 0.0-0.8 [facility] Comment on above: Performed By: #### P T, PTT, CBC, BMP #### [address] Automated eosinophil %Ordere d By: Williams Krause on 06-18-2023 Eosinophils/100 WBC (Bld) 1.0 % Normal . [facility] Comment on above: Performed By: #### P T, PTT, CBC, BMP #### [address] Automated eosinophil countOr dered By: Williams Krause on 06-18-2023 Eosinophils (Bld) [#/Vol] 0.1 10*3/uL Normal 0.0-0.45 [facility] Comment on above: Performed By: #### P T, PTT, CBC, BMP #### [address] Automated monocyte %Ordered By: Williams Krause on 06-18-2023 Monocytes/100 WBC (Bld) 10.5 % Normal . [facility] Comment on above: Performed By: #### P T, PTT, CBC, BMP #### [address] Automated neutrophil %Ordere d By: Williams Krause on 06-18-2023 Neutrophils/100 WBC (Bld) 53.3 % Normal . [facility] Comment on above: Performed By: #### P T, PTT, CBC, BMP #### [address] Basic Metabolic Panelon 05-27 Anion gap [Moles/Vol] Not performed Normal 6.0-15.0 [facility] Comment on above: Performed By: #### P T, PTT, CBC, BMP #### [address] Creatinine Clr Calc Pharmacy 104.34 Normal [facility] Comment on above: Result Comment: PERF ORMED BY: [place] [address] PATHOLOGIST POLE FRAMER MACHINE SYMONE MACHADO M.D. Performed By: #### P T, PTT, CBC, BMP #### [address] GFR/1.73 sq M.predicted MDRD (S/P/Bld) [Vol rate/Area] mL/min/{1.73_m2} Normal [facility] Comment on above: Performed By: #### P T, PTT, CBC, BMP #### [address] Potassium Normal 3.5-5.1 [facility] Comment on above: Result Comment: Spec imen hemolyzed, redraw requested Results called at 0628 on 06/18/23 Performed By: #### P T, PTT, CBC, BMP #### [address] C reactive protein [Mass/vol ume] in Serum or PlasmaOrdered By: Williams Krause on 06-18-2023 CRP [Mass/Vol] < 0.5 mg/dL 0.0-0.5 [facility] C-REACTIVE PROTEINon 023 C REACTIVE PROTEIN (MG/L) IN SER/PLAS <0.1 Normal 0.0-7.0 [facility] Comment on above: Performed By: #### L [id number] #### [facility] ([facility]) [address] [place] [address] C-Reactive Proteinon 023 CRP [Mass/Vol] mg/L Normal 0.0-0.5 [facility] Comment on above: Result Comment: PERF ORMED BY: [place] [address] PATHOLOGIST POLE FRAMER MACHINE SYMONE MACHADO M.D. Performed By: #### E SR, CRP #### [address] CBCon 06-18-2023 Erythrocyte distribution width (RBC) [Ratio] 13.7 % Normal 11.5-15.0 [facility] Comment on above: Performed By: #### L [id number] #### [facility] ([facility]) [address] [place] [address] ERYTHROCYTE MEAN CORPUSCULAR HEMOGLOBIN CONCENTRATION (G/DL) BY AUTOMATED 37.4 g/dL High 32.0-35.0 [facility] Comment on above: Performed By: #### L [id number] #### [facility] ([facility]) [address] [place] [address] Hematocrit (Bld) [Volume fraction] 38.8 % Low 39.0-55.0 [facility] Comment on above: Performed By: #### L [id number] #### [facility] ([facility]) [address] [place] [address] Hemoglobin (Bld) [Mass/Vol] 14.5 g/dL Normal 13.0-17.0 [facility] Comment on above: Performed By: #### L [id number] #### [facility] ([facility]) [address] [facility] [place] [address] MCH (RBC) [Entitic mass] 35.8 pg High 27.0-33.0 [facility] Comment on above: Performed By: #### L [id number] #### [facility] ([facility]) [address] [place] [address] MCV (RBC) [Entitic vol] 95.8 fL Normal 82.0-98.0 [facility] Comment on above: Performed By: #### L [id number] #### [facility] ([facility]) [address] [place] [address] PLATELETS (10*3/UL) IN BLOOD AUTOMATED COUNT 279 10*3/uL Normal 150-400 [facility] Comment on above: Performed By: #### L [id number] #### [facility] ([facility]) [address] [place] [address] RBC (Bld) [#/Vol] 4.05 10*6/uL Low 4.20-5.70 [facility] Comment on above: Performed By: #### L [id number] #### [facility] ([facility]) [address] [place] [address] WBC (Bld) [#/Vol] 8.35 10*3/uL Normal 4.00-10.60 [facility] Comment on above: Performed By: #### L [id number] #### [facility] ([facility]) [address] [place] [address] COMPREHENSIVE METABOLIC PANE Angel 06-18-2023 Albumin [Mass/Vol] 3.6 g/dL Normal 3.5-5.7 [facility] Comment on above: Performed By: #### L [id number] #### [facility] ([facility]) [address] [place] [address] ALP [Catalytic activity/Vol] 83 U/L Normal 34-104 [facility] Comment on above: Performed By: #### L [id number] #### [facility] ([facility]) [address] [place] [address] ALT [Catalytic activity/Vol] 28 U/L Normal 7-52 [facility] Comment on above: Performed By: #### L [id number] #### [facility] ([facility]) [address] [place] [address] Anion gap [Moles/Vol] 14 mmol/L Normal 7-[address] [facility] Comment on above: Performed By: #### L [id number] #### [facility] ([facility]) [address] [place] [address] AST [Catalytic activity/Vol] 26 U/L Normal 13-39 [facility] Comment on above: Performed By: #### L [id number] #### [facility] ([facility]) [address] [place] [address] Bilirubin [Mass/Vol] 0.3 mg/dL Normal 0.3-1.0 [facility] Comment on above: Performed By: #### L [id number] #### [facility] ([facility]) [address] [place] [address] Calcium [Mass/Vol] 8.7 mg/dL Normal 8.6-10.3 [facility] Comment on above: Performed By: #### L [id number] #### [facility] ([facility]) [address] [place] [address] Chloride [Moles/Vol] 105 mmol/L Normal 98-107 [facility] Comment on above: Performed By: #### L [id number] #### [facility] ([facility]) [address] [place] [address] CO2 [Moles/Vol] 23 mmol/L Normal 21-31 [facility] Comment on above: Performed By: #### L [id number] #### [facility] ([facility]) [address] [place] [address] Creatinine [Mass/Vol] 1.00 mg/dL Normal 0.70-1.[address] [facility] Comment on above: Performed By: #### L [id number] #### [facility] ([facility]) [address] [place] [address] GLOMERULAR FILTRATION RATE ML/MIN/1.73 SQ M.PREDICTED 92.3 mL/min/1.73m*2 Normal >60.0 [facility] Comment on above: Result Comment: [facility]???s estimated glomerular filtration rate (eGFR) will no [...] individuals. Performed By: #### L [id number] #### [facility] ([facility]) [address] [place] [address] Glucose [Mass/Vol] 104 mg/dL High 70-100 [facility] Comment on above: Performed By: #### L [id number] #### [facility] ([facility]) [address] [place] [address] Potassium [Moles/Vol] 4.7 mmol/L Normal 3.5-5.[address] [facility] Comment on above: Performed By: #### L [id number] #### [facility] ([facility]) [address] [place] [address] Protein [Mass/Vol] 6.1 g/dL Normal 6.0-8.3 [facility] Comment on above: Performed By: #### L [id number] #### [facility] [address] [place] [address] Sodium [Moles/Vol] 137 mmol/L Normal 136-145 [facility] Comment on above: Performed By: #### L [id number] #### [facility] ([facility]) [address] [place] [address] Urea nitrogen [Mass/Vol] 21 mg/dL Normal 7-25 [facility] Comment on above: Performed By: #### L [id number] #### [facility] ([facility]) [address] [place] [address] UREA NITROGEN/CREATININE (MASS RATIO) IN SER/PLAS 21.0 Normal [facility] Comment on above: Performed By: #### L [id number] #### [facility] ([facility]) [address] [place] [address] CTA UPPER EXTREMITY LEFT W A ND/OR [...] reasonably achievable. Electronically signed: Ahsan Birmingham M.D.. [facility] CTA UPPER EXTREMITY RIGHT W AND/OR [...] achievable. Electronically signed: Ahsan Birmingham M.D.. Normal [facility] Calcium [Mass/volume] in Ser um or PlasmaOrdered By: Williams Krause on 06-18-2023 Calcium [Mass/Vol] 8.5 mg/dL Low 8.6-10.3 [facility] Comment on above: Performed By: #### P T, PTT, CBC, BMP #### [facility] [address] Carbon dioxide, total [Moles /volume] in Serum or PlasmaOrdered By: Williams Krause on 06-18-2023 CO2 [Moles/Vol] 19.2 mmol/L Low 21.0-31.0 [facility] Comment on above: Performed By: #### P T, PTT, CBC, BMP #### [address] Chloride [Moles/volume] in S akiko or PlasmaOrdered By: Williams Krause on 06-18-2023 Chloride [Moles/Vol] 106 mmol/L Normal 98-107 [facility] Comment on above: Performed By: #### P T, PTT, CBC, BMP #### [address] Complete Blood Count Auto Di ffon 06-18-2023 Mean Corpuscular HGB Conc 34.9 g/dL Normal 32.5-35.6 [facility] Comment on above: Performed By: #### P T, PTT, CBC, BMP #### [address] Monocytes/100 WBC (Bld) 19.18 % Normal 0.00-20.00 [facility] Comment on above: Performed By: #### P T, PTT, CBC, BMP #### [address] NRBC% 0.3 /100{WBC} Normal 0-0.5 [facility] Comment on above: Performed By: #### P T, PTT, CBC, BMP #### [address] Creatinine [Mass/volume] in Serum or PlasmaOrdered By: Williams Krause on 06-18-2023 Creatinine [Mass/Vol] 0.94 mg/dL Normal 0.70-1.30 [facility] Comment on above: Performed By: #### P T, PTT, CBC, BMP #### [address] ECG 12 lead ECGon 06-18-2023 ECG 12 lead ECG [facility] [place] [address] [place] [address] Electrocardiograph Report Signed Patient: Ritchie Blair MR#: [id number] : 1975 Acct:[id number] Age/Sex: 47 / M ADM Date: 06/18/23 Loc: ER Room: Type: [facility] ER Attending Dr: Ordering Provider: Williams [...] sinus rhythm Confirmed by Williams Krause DO ([id number]) on 06/18/2023 6:31:26 AM Referred By: Electronically Signed By:Williams Krause DO Transcribed By: MUS Signed By Williams Krause DO 0631 Normal [facility] Erythrocyte Sedimentation Ra nellie 06-18-2023 ESR (Bld) [Velocity] 18 mm/h High 0-14 [facility] Comment on above: Result Comment: PERF ORMED BY: [place] [address] PATHOLOGIST POLE FRAMER MACHINE SYMONE MACHADO M.D. Performed By: #### P T, PTT, CBC, BMP #### [facility] [address] [place] [address] Erythrocyte distribution wid th [Ratio] by Automated countOrdered By: Williams Krause on 06-18-2023 Erythrocyte distribution width (RBC) [Ratio] 13.2 % Normal 12.0-14.8 [facility] Comment on above: Performed By: #### P T, PTT, CBC, BMP #### [facility] [address] [place] [address] Erythrocyte sedimentation ra te by Photometric methodOrdered By: Williams Krause on 06-18-2023 ESR Photometric method (Bld) [Velocity] 18 mm/hr 0-14 [facility] Erythrocytes [#/volume] in B lood by Automated countOrdered By: Williams Krause on 06-18-2023 RBC (Bld) [#/Vol] 4.26 10*6/uL Normal 3.90-5.60 [facility] Comment on above: Performed By: #### P T, PTT, CBC, BMP #### [facility] [address] [place] [id number] [facility] Glucose [Mass/volume] in Ser um or PlasmaOrdered By: Williams Krause on 06-18-2023 Glucose [Mass/Vol] 119 mg/dL High 70-100 [facility] Comment on above: ADA recommended refe rence rangeRandom Glucose Reference Range is dependent on time and content of last meal. Glucose of more than 200 mg/dL in a nonstressed, ambulatory subject supports the diagnosis of Diabetes Mellitus. Result Comment: [place] om Glucose Reference Range is dependent on time and content of last meal. Glucose of more than 200 mg/dL in a nonstressed, ambulatory subject supports the diagnosis of Diabetes Mellitus. ADA recommended reference range Performed By: #### P T, PTT, CBC, BMP #### [facility] [address] [place] [id number] [facility] HPon 06-18-2023 HP ------ -- Attestation signed [...] gtt, ASA, CCB, Rhematology work up -- [facility] Vascular Surgery HISTORY & PHYSICAL Reason [...] Normal ra (more content not included)... Normal [facility] Hematocrit [Volume Fraction] of Blood by Automated countOrdered By: Williams Krause on 06-18-2023 Hematocrit (Bld) [Volume fraction] 41.1 % Normal 38.8-50.0 [facility] Comment on above: Performed By: #### P T, PTT, CBC, BMP #### [facility] [address] Hemoglobin [Mass/volume] in BloodOrdered By: Williams Krause on 06-18-2023 Hemoglobin (Bld) [Mass/Vol] 14.3 g/dL Normal 13.0-17.0 [facility] Comment on above: Performed By: #### P T, PTT, CBC, BMP #### [facility] [address] INR in Platelet poor plasma by Coagulation assayOrdered By: Williams Krause on 06-18-2023 INR Coag (PPP) [Relative time] 1.0 {INR} Normal [facility] Comment on above: INR Therapeutic Rang e A) Pre- and Peroperative OAT started two weeks before surgery. NOT HIP SURGERY: 1.5 - 2.5 HIP SURGERY: 2 - 3B) Primary and secondary prevention of venous THROMBOSIS: 2 - 3C) Active venous thrombosis, pulmonary embolismand prevention of recurrent venous thrombosis: 2 - 3D) Prevention of arterial thromboembolismincluding patients with mechanical heart valves: 3 - 4.5 Result Comment: INR Therapeutic Range A) Pre- [...] 3 - 4.5 Performed By: #### P T, PTT, CBC, BMP #### [facility] [address] Leukocytes [#/volume] correc quentin for nucleated erythrocytes in Blood by Automated counOrdered By: Williams Krause on 06-18-2023 WBC corrected for nucl RBC Auto (Bld) [#/Vol] 6.2 10*3/uL 4.1-10.5 [facility] Leukocytes [#/volume] in Blo od by Automated countOrdered By: Williams Krause on 06-18-2023 WBC (Bld) [#/Vol] 6.2 10*3/uL Normal 4.1-10.5 [facility] Comment on above: Performed By: #### P T, PTT, CBC, BMP #### [address] Lymphocytes [#/volume] in Bl ood by Automated countOrdered By: Williams Krause on 06-18-2023 Lymphocytes (Bld) [#/Vol] 2.1 10*3/uL Normal 1.00-4.8 [facility] Comment on above: Performed By: #### P T, PTT, CBC, BMP #### [address] Lymphocytes/100 leukocytes i n Blood by Automated countOrdered By: Williams Krause on 06-18-2023 Lymphocytes/100 WBC (Bld) 33.9 % Normal . [facility] Comment on above: Performed By: #### P T, PTT, CBC, BMP #### [address] MCH [Entitic mass] by Automa quentin countOrdered By: Williams Krause on 06-18-2023 MCH (RBC) [Entitic mass] 33.7 pg Normal 27.5-35.2 [facility] Comment on above: Performed By: #### P T, PTT, CBC, BMP #### [address] MCHC Auto (RBC) [Mass/Vol]Or dered By: Williams Krause on 06-18-2023 MCHC (RBC) [Mass/Vol] 34.9 g/dL 32.5-35.6 [facility] MCV [Entitic volume] by Auto mated countOrdered By: Williams Krause on 06-18-2023 MCV (RBC) [Entitic vol] 96.6 fL Normal 83.5-101 [facility] Comment on above: Performed By: #### P T, PTT, CBC, BMP #### [facility] [address] Monocyte distribution width [Entitic volume] in Blood by AutomatedOrdered By: Williams Krause on 06-18-2023 Monocyte distribution width Auto (Bld) [Entitic vol] 19.18 % 0.00-20.00 [facility] Neutrophils [#/volume] in Bl ood by Automated countOrdered By: Williams Krause on 06-18-2023 Neutrophils (Bld) [#/Vol] 3.3 10*3/uL Normal 1.8-7.7 [facility] Comment on above: Performed By: #### P T, PTT, CBC, BMP #### [facility] [address] [place] [address] No Panel InformationOrdered By: Williams Krause on 06-18-2023 Estimated GFR (CKD-EPI) > 60.0 mL/Min [facility] Creatinine Clearance (Chem 104.34 [facility] Nucleated erythrocytes [Pres ence] in Blood by Automated countOrdered By: Williams Krause on 06-18-2023 Nucleated RBC Auto Ql (Bld) 0.3 /100{WBC} 0-0.5 [facility] Partial Thromboplastin Timeo n 06-18-2023 aPTT Coag (Bld) [Time] 28.0 s Normal 25.1-36.5 [facility] Comment on above: Result Comment: A he matocrit value greater than 55% may lead to inaccurate results in coagulation testing. Patients having hematocrit values >55% require a special collection tube for coagulation studies. Please contact the laboratory at [phone] for redraw instructions. PERFORMED BY: [place] [address] PATHOLOGIST POLE FRAMER MACHINE SYMONE MACHADO M.D. Performed By: #### P T, PTT, CBC, BMP #### [facility] [address] [place], [place] [id number] [facility] Platelet mean volume [Entiti c volume] in Blood by Automated countOrdered By: Williams Krause on 06-18-2023 Platelet mean volume (Bld) [Entitic vol] 7.7 fL Normal 6.6-10.1 [facility] Comment on above: Performed By: #### P T, PTT, CBC, BMP #### [address] Platelets [#/volume] in Bloo d by Automated countOrdered By: Williams Krause on 06-18-2023 Platelets (Bld) [#/Vol] 297 10*3/uL Normal 150-450 [facility] Comment on above: Performed By: #### P T, PTT, CBC, BMP #### [address] Potassium [Moles/volume] in Serum or PlasmaOrdered By: Williams Krause on 06-18-2023 Potassium [Moles/Vol] 4.7 mmol/L Normal 3.5-5.1 [facility] Comment on above: Result Comment: PERF ORMED BY: [place] [address] PATHOLOGIST POLE FRAMER MACHINE SYMONE MACHADO M.D. Performed By: #### P T, PTT, CBC, BMP #### [address] Prothrombin time (PT)Ordered By: Williams Krause on 06-18-2023 PT Coag (PPP) [Time] 12.2 s Normal 9.0-12.9 [facility] Comment on above: A hematocrit value g reater than 55% may lead to inaccurate results in coagulation testing. Patients having hematocrit values >55% require a special collection tube for coagulation studies. Please contact the laboratory at [phone] for redraw instructions. Result Comment: A he matocrit value greater than 55% may lead to inaccurate results in coagulation testing. Patients having hematocrit values >55% require a special collection tube for coagulation studies. Please contact the laboratory at [phone] for redraw instructions. Performed By: #### P T, PTT, CBC, BMP #### [address] RHEUMATOID FACTORon 06-18-20 Rheumatoid factor Qn [IU]/mL Normal 0-20 [facility] Comment on above: Performed By: #### L [id number] #### [facility] (BEAKER) [address] [place] [address] SEDIMENTATION RATEon 023 SEDIMENTATION RATE, ERYTHROCYTE 4 mm/hr Normal <=10 [facility] Comment on above: Performed By: #### L [id number] #### [facility] (BEAKER) [address] [place] [address] Serum or plasma anion gap de terminationOrdered By: Williams Krause on 06-18-2023 Anion gap [Moles/Vol] TNP [facility] Comment on above: Test not performed Sodium [Moles/volume] in Ser um or PlasmaOrdered By: Williams Krause on 06-18-2023 Sodium [Moles/Vol] 134 mmol/L Low 136-145 [facility] Comment on above: Performed By: #### P T, PTT, CBC, BMP #### [facility] [address] Urea nitrogen [Mass/volume] in Serum or PlasmaOrdered By: Williams Krause on 06-18-2023 Urea nitrogen [Mass/Vol] 22 mg/dL Normal 7-25 [facility] Comment on above: Performed By: #### P T, PTT, CBC, BMP #### [facility] [address] chest wo con high reson 1 CT chest wo con high res [facility] [place] [address] [place] [address] CT Scan Report Signed Patient: Ritchie Blair MR#: [id number] : 1975 Acct:[id number] Age/Sex: 47 / M ADM Date: 05/21/23 Loc: CT Room: Type: [facility] Attending Dr: Tony Lieberman MD Copies to: [...] Rios Jr., D.O.05/21/2023 11:52 AM Dictation Location: [place] [address] Transcribed By: [facility] 05/21/23 1152 Dictated By: Feliciano Rios Jr DO 05/21/23 1138 Signed By: 05/21/23 1152 Normal [facility] Activated partial thrombopla stin time (aPTT) in platelet poor plasma by coagulation aOrdered By: Williams Coronado on 11-24-2022 aPTT Coag (PPP) [Time] 27.6 s 25.1-36.5 [facility] Alanine aminotransferase [En zymatic activity/volume] in Serum or PlasmaOrdered By: Williams Coronado on 11-24-2022 ALT [Catalytic activity/Vol] 34 U/L 7-52 [facility] Albumin [Mass/volume] in Ser um or Plasma by Bromocresol green (BCG) dye binding methoOrdered By: Williams Coronado on 11-24-2022 Albumin BCG dye [Mass/Vol] 4.2 g/dL 3.5-5.7 [facility] Alkaline phosphatase [Enzyma tic activity/volume] in Serum or PlasmaOrdered By: Williams Coronado on 11-24-2022 ALP [Catalytic activity/Vol] 80 U/L 34-104 [facility] Aspartate aminotransferase [ Enzymatic activity/volume] in Serum or PlasmaOrdered By: Williams Coronado on 11-24-2022 AST [Catalytic activity/Vol] 27 U/L 13-39 [facility] Automated erythrocytes count in urine sediment (number/area)Ordered By: Williams Coronado on 11-24-2022 RBC Auto (Urine sed) [#/Area] None seen [HPF] 0-4 [facility] Automated leukocytes count i n urine sediment (number/area)Ordered By: Williams Coronado on 11-24-2022 WBC Auto (Urine sed) [#/Area] None seen [HPF] 0-4 [facility] Basophils Auto (Bld) [#/Vol] Ordered By: Williams Coronado on 11-24-2022 Basophils (Bld) [#/Vol] 0.1 10*3/uL 0.0-0.2 [facility] Basophils/100 WBC Auto (Bld) Ordered By: Williams Coronado on 11-24-2022 Basophils/100 WBC (Bld) 0.6 % . [facility] Bilirubin Test strip Ql (U)O rdered By: Williams Coronado on 11-24-2022 Bilirubin Ql (U) Negative Negative [facility] Bilirubin.total [Mass/volume ] in Serum or PlasmaOrdered By: Williams Coronado on 11-24-2022 Bilirubin [Mass/Vol] 0.4 mg/dL 0.3-1.0 [facility] C reactive protein [Mass/vol ume] in Serum or PlasmaOrdered By: Williams Coronado on 11-24-2022 CRP [Mass/Vol] < 0.5 mg/dL 0.0-0.5 [facility] Calcium [Mass/volume] in Ser um or PlasmaOrdered By: Williams Coronado on 11-24-2022 Calcium [Mass/Vol] 9.0 mg/dL 8.6-10.3 [facility] Carbon dioxide, total [Moles /volume] in Serum or PlasmaOrdered By: Williams Coronado on 11-24-2022 CO2 [Moles/Vol] 25.7 mmol/L 21.0-31.0 [facility] Chloride [Moles/volume] in S akiko or PlasmaOrdered By: Williams Coronado on 11-24-2022 Chloride [Moles/Vol] 103 mmol/L 98-107 [facility] Color Auto (U)Ordered By: Juan R Coronado on 11-24-2022 Color (U) Yellow Yellow [facility] Creatine kinase [Enzymatic a ctivity/volume] in Serum or PlasmaOrdered By: Williams Coronado on 11-24-2022 CK [Catalytic activity/Vol] 92 U/L 30-223 [facility] Creatinine [Mass/volume] in Serum or PlasmaOrdered By: Williams Coronado on 11-24-2022 Creatinine [Mass/Vol] 0.96 mg/dL 0.70-1.30 [facility] Eosinophils Auto (Bld) [#/Vo l]Ordered By: Williams Coronado on 11-24-2022 Eosinophils (Bld) [#/Vol] 0.1 10*3/uL 0.0-0.45 [facility] Eosinophils/100 WBC Auto (Bl d)Ordered By: Williams Coronado on 11-24-2022 Eosinophils/100 WBC (Bld) 1.2 % . [facility] Erythrocyte distribution wid th Auto (RBC) [Ratio]Ordered By: Williams Coronado on 11-24-2022 Erythrocyte distribution width (RBC) [Ratio] 13.9 % 12.0-14.8 [facility] Erythrocyte sedimentation ra te by Photometric methodOrdered By: Williams Coronado on 11-24-2022 ESR Photometric method (Bld) [Velocity] 17 mm/hr 0-14 [facility] Globulin Calc (S) [Mass/Vol] Ordered By: Williams Coronado on 11-24-2022 Globulin (S) [Mass/Vol] 3.0 g/dL [facility] Glucose [Mass/volume] in Ser um or PlasmaOrdered By: Williams Coronado on 11-24-2022 Glucose [Mass/Vol] 80 mg/dL 70-100 [facility] Comment on above: ADA recommended refe rence rangeRandom Glucose Reference Range is dependent on time and content of last meal. Glucose of more than 200 mg/dL in a nonstressed, ambulatory subject supports the diagnosis of Diabetes Mellitus. Hematocrit Auto (Bld) [Volum e fraction]Ordered By: Williams Coronado on 11-24-2022 Hematocrit (Bld) [Volume fraction] 44.2 % 38.8-50.0 [facility] Hemoglobin [Mass/volume] in BloodOrdered By: Williams Coronado on 11-24-2022 Hemoglobin (Bld) [Mass/Vol] 14.9 g/dL 13.0-17.0 [facility] Ketones Auto test strip (U) [Mass/Vol]Ordered By: Williams Coronado on 11-24-2022 Ketones (U) [Mass/Vol] Negative Negative [facility] - CoagulationOrde red By: Williams Coronado on 11-24-2022 PT Coag (PPP) [Time] 10.5 s 9.0-12.9 [facility] - UrinalysisOrder ed By: Williams Coronado on 11-24-2022 Hyaline casts LM Ql (Urine sed) None seen [LPF] 0-8 [facility] Leukocytes [#/volume] correc quentin for nucleated erythrocytes in Blood by Automated counOrdered By: Williams Coronado on 11-24-2022 WBC corrected for nucl RBC Auto (Bld) [#/Vol] 8.5 10*3/uL 4.1-10.5 [facility] Lymphocytes Auto (Bld) [#/Vo l]Ordered By: Williams Coronado on 11-24-2022 Lymphocytes (Bld) [#/Vol] 2.8 10*3/uL 1.00-4.8 [facility] Lymphocytes/100 WBC Auto (Bl d)Ordered By: Williams Coronado on 11-24-2022 Lymphocytes/100 WBC (Bld) 32.7 % . [facility] MCH Auto (RBC) [Entitic mass ]Ordered By: Wililams Coronado on 11-24-2022 MCH (RBC) [Entitic mass] 34.0 pg 27.5-35.2 [facility] MCHC Auto (RBC) [Mass/Vol]Or dered By: Williams Coronado on 11-24-2022 MCHC (RBC) [Mass/Vol] 33.6 g/dL 32.5-35.6 [facility] MCV Auto (RBC) [Entitic vol] Ordered By: Williams Coronado on 11-24-2022 MCV (RBC) [Entitic vol] 101.0 fL 83.5-101 [facility] Monocytes Auto (Bld) [#/Vol] Ordered By: Williams Coronado on 11-24-2022 Monocytes (Bld) [#/Vol] 0.9 10*3/uL 0.0-0.8 [facility] Monocytes/100 WBC Auto (Bld) Ordered By: Williams Coronado on 11-24-2022 Monocytes/100 WBC (Bld) 10.1 % . [facility] Neutrophils Auto (Bld) [#/Vo l]Ordered By: Williams Coronado on 11-24-2022 Neutrophils (Bld) [#/Vol] 4.7 10*3/uL 1.8-7.7 [facility] Neutrophils/100 WBC Auto (Bl d)Ordered By: Williams Coronado on 11-24-2022 Neutrophils/100 WBC (Bld) 55.4 % . [facility] Nitrite Test strip Ql (U)Ord ered By: Williams Coronado on 11-24-2022 Nitrite Ql (U) Negative Negative [facility] No Panel InformationOrdered By: Williams Coronado on 11-24-2022 Estimated GFR (CKD-EPI) > 60.0 mL/Min [facility] Creatinine Clearance (Chem N/A [facility] Nucleated erythrocytes [Pres ence] in Blood by Automated countOrdered By: Williams Coronado on 11-24-2022 Nucleated RBC Auto Ql (Bld) 0.1 /100{WBC} 0-0.5 [facility] Platelet mean volume Auto (B ld) [Entitic vol]Ordered By: Williams Coronado on 11-24-2022 Platelet mean volume (Bld) [Entitic vol] 9.0 fL 6.6-10.1 [facility] Platelet poor plasma interna tional normalized ratio (INR) by coagulation assay (relatOrdered By: Williams Coronado on 11-24-2022 INR Coag (PPP) [Relative time] 0.9 {INR} [facility] Comment on above: INR Therapeutic Rang e [...] 11-24-2022 Platelets (Bld) [#/Vol] 217 10*3/uL 150-450 [facility] Potassium [Moles/volume] in Serum or PlasmaOrdered By: Williams Coronado on 11-24-2022 Potassium [Moles/Vol] 4.3 mmol/L 3.5-5.1 [facility] Protein Auto test strip (U) [Mass/Vol]Ordered By: Williams Coronado on 11-24-2022 Protein (U) [Mass/Vol] Negative Negative [facility] Protein [Mass/volume] in Ser um or PlasmaOrdered By: Williams Coronado on 11-24-2022 Protein [Mass/Vol] 7.2 g/dL 6.4-8.9 [facility] RBC Auto (Bld) [#/Vol]Ordere d By: Williams Coronado on 11-24-2022 RBC (Bld) [#/Vol] 4.38 10*6/uL 3.90-5.60 [facility] Serum or plasma albumin/glob ulin mass ratioOrdered By: Williams Coronado on 11-24-2022 Albumin/Globulin [Mass ratio] 1.4 {ratio} [facility] Serum or plasma anion gap de terminationOrdered By: Williams Coronado on 11-24-2022 Anion gap [Moles/Vol] 13.6 mmol/L 6.0-15.0 [facility] Sodium [Moles/volume] in Ser um or PlasmaOrdered By: Williams Coronado on 11-24-2022 Sodium [Moles/Vol] 138 mmol/L 136-145 [facility] Specific gravity Auto test s trip (U) [Rel density]Ordered By: Williams Coronado on 11-24-2022 Specific gravity (U) [Rel density] 1.015 1.001-1.03 0 [facility] Squamous epithelial cells de tection in urine sediment by light microscopyOrdered By: Williams Coronado on 11-24-2022 Epithelial cells.squamous LM Ql (Urine sed) None seen [HPF] 0-2 [facility] Thyrotropin [Units/volume] i n Serum or PlasmaOrdered By: Williams Coronado on 11-24-2022 TSH Qn 2.20 m[IU]/L 0.45-5.33 [facility] Thyroxine (T4) free [Mass/vo lume] in Serum or PlasmaOrdered By: Williams Coronado on 11-24-2022 Free T4 [Mass/Vol] 0.81 ng/dL 0.61-1.12 [facility] Urea nitrogen [Mass/volume] in Serum or PlasmaOrdered By: Williams Coronado on 11-24-2022 Urea nitrogen [Mass/Vol] 13 mg/dL 7-25 [facility] Urine bacteria detection by automated methodOrdered By: Williams Coronado on 11-24-2022 Bacteria Auto Ql (U) None seen None Seen [facility] Urine clarity by refractomet ry automatedOrdered By: Williams Coronado on 11-24-2022 Clarity Refractometry automated (U) Clear Clear [facility] Urine glucose measurement by automated test strip (mass/volume)Ordered By: Williams Coronado on 11-24-2022 Glucose Auto test strip (U) [Mass/Vol] Normal mg/dL Normal [facility] Urine hemoglobin detection b y automated test stripOrdered By: Williams Coronado on 11-24-2022 Hemoglobin Auto test strip Ql (U) Negative Negative [facility] Urine leukocyte esterase det ection by automated test stripOrdered By: Williams Cullenrow on 11-24-2022 Leukocyte esterase Auto test strip Ql (U) Negative Negative [facility] Urobilinogen Auto test strip (U) [Mass/Vol]Ordered By: Williams Ivonne on 11-24-2022 Urobilinogen (U) [Mass/Vol] Normal mg/dL Normal [facility] WBC Auto (Bld) [#/Vol]Ordere d By: Williams Ivonne on 11-24-2022 WBC (Bld) [#/Vol] 8.5 10*3/uL 4.1-10.5 [facility] pH Auto test strip (U)Ordere d By: Williams Ivonne on 11-24-2022 pH (U) 5.5 [pH] 5.0-9.0 [facility] ANASTASIIA by IFAon 10-18-2022 Antinuclear Antibodies, IFA Positive Abnormal [facility] Comment on above: Result Comment: Nega tive <1:80 Borderline 1:80 Positive >1:80 Performed By: #### C VDTBH #### [facility] [address] [place] [address] [address] Kyra Patel Centriole Pattern Normal [facility] Comment on above: Performed By: #### C VDTBH #### [facility] [address] [place] [address] [address] Kyra Patel Centromere Pattern 1:320 Critically high [facility] Comment on above: Result Comment: ICAP nomenclature: AC-3 Performed By: #### C VDTBH #### [facility] [address] [place] [address] [address] Kyra Patel Homogeneous Pattern 1:160 Critically high [facility] Comment on above: Result Comment: ICAP nomenclature: AC-1 Performed By: #### C VDTBH #### [facility] [address] [place] [address] [address] Kyra Patel Midbody Pattern Normal [facility] Comment on above: Performed By: #### C VDTBH #### [facility] [address] [place], [place] [address] Dr. Kyra Patel Note: Comment Normal [facility] Comment on above: Result Comment: For [...] titers Nucleosomes, Histones Drug-induced SLE Speckled Sm, SCORING MACHINE [employer]PERATOR, SCL-70, SLE,MCTD,PSS (diffuse form), SS-A/SS-B Sjogrens Nucleolar SCL-70, PM-1/SCL High titers Scleroderma, PM/DM Centromere Centromere PSS (limited form) w/Crest syndrome variable Nuclear Dot [id number] Primary Biliary Cirrhosis Nuclear GP210, Primary Biliary Cirrhosis Membrane aida A,B,C Performed By: #### C VDTBH #### [facility] [address] [place] [address] Dr. Kyra Patel Nuclear Dot Pattern Normal [facility] Comment on above: Performed By: #### C VDTBH #### [facility] [address] [place] [address] Dr. Kyra Patel Nuclear Membrane Pattern Normal [facility] Comment on above: Performed By: #### C VDTBH #### [facility] [address] [place] [address] Dr. Kyra Patel Nucleolar Pattern Normal [facility] Comment on above: Performed By: #### C VDTBH #### [facility] [address] [place] [address] Dr. Kyra Patel PCNA Pattern Normal [facility] Comment on above: Performed By: #### C VDTBH #### [facility] [address] [place] [address] Dr. Kyra Patel Speckled Pattern Normal [facility] Comment on above: Performed By: #### C VDTBH #### [facility] [address] [place] [address] Dr. Kyra Patel Spindle Apparatus Pattern Normal [facility] Comment on above: Performed By: #### C VDTBH #### [facility] [address] [place] [address] Dr. Kyra Patel RHEUMATOID FACTORon 10-17-19 RA Latex Turbid. 10.2 IU/mL Normal <14.0 [facility] Comment on above: Performed By: #### C VDTBH #### [facility] [address] [place] [address] Dr. Kyra Patel CBC AUTO DIFFon 10-15-2022 BASO # 0.1 103/ul Normal 0.0-0.1 [facility] Comment on above: Performed By: #### C BC #### [facility] [address] [place] [address] Dr. Kyra Patel Basophils/100 WBC (Bld) 0.9 % Normal 0.2-2.0 [facility] Comment on above: Performed By: #### C BC #### [facility] [address] [place] [address] Dr. Kyra Patel EO # 0.1 103/ul Normal 0.0-0.7 [facility] Comment on above: Performed By: #### C BC #### [facility] [address] [place] [address] Dr. Kyra Patel Eosinophils/100 WBC (Bld) 1.4 % Normal 0.9-7.0 [facility] Comment on above: Performed By: #### C BC #### [facility] [address] [place] [address] Dr. Kyra Patel Erythrocyte distribution width (RBC) [Ratio] 14.0 % Normal 11.0-15.0 [facility] Comment on above: Performed By: #### C BC #### [facility] [address] [place] [address] Dr. Kyra Patel Hematocrit (Bld) [Volume fraction] 40.9 % Critically low 42.0-54.0 [facility] Comment on above: Performed By: #### C BC #### [facility] [address] [place] [address] Dr. Kyra Patel Hemoglobin (Bld) [Mass/Vol] 14.2 g/dL Normal 14.0-18.0 [facility] Comment on above: Performed By: #### C BC #### [facility] [address] [place] [address] Dr. Kyra Patel IG # 0.03 10e3/ul Normal 0.00-0.03 [facility] Comment on above: Performed By: #### C BC #### [facility] [address] [place] [address] Dr. Kyra Patel IG % 0.4 % Normal 0.0-0.5 [facility] Comment on above: Performed By: #### C BC #### [facility] [address] [place] [address] Dr. Kyra Patel LYMPH # 2.5 103/ul Normal 1.2-3.8 [facility] Comment on above: Performed By: #### C BC #### [facility] [address] [place] [address] Dr. Kyra Patel Lymphocytes/100 WBC (Bld) 30.8 % Normal 20.5-60.0 [facility] Comment on above: Performed By: #### C BC #### [facility] [address] [place] [address] Dr. Kyra Patel MANUAL DIFF REQ NO Normal [facility] Comment on above: Performed By: #### C BC #### [facility] [address] [place] [address] Dr. Kyra Patel MCH (RBC) [Entitic mass] 34.7 pg Critically high 25.9-34.0 [facility] Comment on above: Performed By: #### C BC #### [facility] [address] [place] [address] Dr. Kyra Patel MCHC (RBC) [Mass/Vol] 34.7 g/dL Normal 29.9-35.2 [facility] Comment on above: Performed By: #### C BC #### [facility] [address] [place] [address] Dr. Kyra Patel MCV (RBC) [Entitic vol] 100.0 fL Critically high 80.0-94.0 [facility] Comment on above: Performed By: #### C BC #### [facility] [address] [place] [address] Dr. Kyra Patel MONO # 0.8 103/ul Normal 0.3-0.8 [facility] Comment on above: Performed By: #### C BC #### [facility] [address] [place] [address] Dr. Kyra Patel Monocytes/100 WBC (Bld) 9.5 % Normal 1.7-12.0 [facility] Comment on above: Performed By: #### C BC #### [facility] [address] [place] [address] [address] Kyra Patel NEUT # 4.6 103/ul Normal 1.4-6.5 [facility] Comment on above: Performed By: #### C BC #### [facility] [address] [place] [address] Dr. Kyra Patel Neutrophils/100 WBC (Bld) 57.0 % Normal 43.0-75.0 [facility] Comment on above: Performed By: #### C BC #### [facility] [address] [place] [address] Dr. Kyra Patel Platelet mean volume (Bld) [Entitic vol] 9.4 fL Critically low 9.5-13.5 [facility] Comment on above: Performed By: #### C BC #### [facility] [address] [place] [address] Dr. Kyra Patel PLT 197 103/ul Normal 150-450 [facility] Comment on above: Performed By: #### C BC #### [facility] [address] [place] [address] Dr. Kyra Patel RBC 4.09 106/ul Critically low 4.70-6.10 [facility] Comment on above: Performed By: #### C BC #### [facility] [address] [place] [address] Dr. Kyra Patel WBC 8.1 103/ul Normal 4.0-11.0 [facility] Comment on above: Performed By: #### C BC #### [facility] [address] [place] [address] Dr. Kyra Patel PROF 14(COMP METB)on 03-23-2 023 Albumin [Mass/Vol] 3.6 g/dL Normal 3.4-5.0 [facility] Comment on above: Performed By: #### C MP, T4, TSH #### [facility] [address] [address] [address] Kyra Patel Albumin/Globulin [Mass ratio] 1.0 {ratio} Normal [facility] Comment on above: Performed By: #### C MP, T4, TSH #### [facility] [address] [address] [address] Kyra Patel ALP [Catalytic activity/Vol] 86 U/L Normal 46-116 [facility] Comment on above: Performed By: #### C MP, T4, TSH #### [facility] [address] [place] [address] Dr. Kyra Patel ALT [Catalytic activity/Vol] 60 U/L Normal 16-63 [facility] Comment on above: Performed By: #### C MP, T4, TSH #### [facility] [address] [address] [address] Kyra Patel Anion gap [Moles/Vol] 15.0 mmol/L Normal [facility] Comment on above: Performed By: #### C MP, T4, TSH #### [facility] [address] [place] [address] Dr. Kyra Patel AST [Catalytic activity/Vol] 44 U/L Critically high 15-37 [facility] Comment on above: Performed By: #### C MP, T4, TSH #### [facility] [address] [address] [address] Kyra Patel Bilirubin [Mass/Vol] 0.4 mg/dL Normal 0.2-1.0 [facility] Comment on above: Performed By: #### C MP, T4, TSH #### [facility] [address] [place] [address] Dr. Kyra Patel Calcium [Mass/Vol] 8.7 mg/dL Normal 8.5-10.1 [facility] Comment on above: Performed By: #### C MP, T4, TSH #### [facility] [address] [place] [address] Dr. Kyra Patel Chloride [Moles/Vol] 103 mmol/L Normal 98-107 [facility] Comment on above: Performed By: #### C MP, T4, TSH #### [facility] [address] [place] [address] Dr. Kyra Patel CO2 [Moles/Vol] 24.2 mmol/L Normal 21.0-32.0 [facility] Comment on above: Performed By: #### C MP, T4, TSH #### [facility] [address] [place] [address] Dr. Kyra Patel Creatinine [Mass/Vol] 0.94 mg/dL Normal 0.70-1.30 [facility] Comment on above: Performed By: #### C MP, T4, TSH #### [facility] [address] [place] [address] Dr. Kyra Patel EGFR-AF ANDORRAN >60 Normal >=60 [facility] Comment on above: Performed By: #### C MP, T4, TSH #### [facility] [address] [place] [address] Dr. Kyra Patel EGFR-NON AF ANDORRAN >60 Normal >=60 [facility] Comment on above: Performed By: #### C MP, T4, TSH #### [facility] [address] [place] [address] Dr. Kyra Patel Globulin (S) [Mass/Vol] 3.5 g/dL Normal [facility] Comment on above: Performed By: #### C MP, T4, TSH #### [facility] [address] [place] [address] Dr. Kyra Patel Glucose [Mass/Vol] 96 mg/dL Normal 74-106 [facility] Comment on above: Performed By: #### C MP, T4, TSH #### [facility] [address] [place] [address] Dr. Kyra Patel Potassium [Moles/Vol] 4.2 mmol/L Normal 3.5-5.1 [facility] Comment on above: Performed By: #### C MP, T4, TSH #### [facility] [address] [place] [address] Dr. Kyra Patel Protein [Mass/Vol] 7.1 g/dL Normal 6.4-8.2 [facility] Comment on above: Performed By: #### C MP, T4, TSH #### [facility] [address] [place] [address] Dr. Kyra Patel Sodium [Moles/Vol] 138 mmol/L Normal 136-145 [facility] Comment on above: Performed By: #### C MP, T4, TSH #### [facility] [address] [place] [address] Dr. Kyra Patel Urea nitrogen [Mass/Vol] 14.0 mg/dL Normal 7.0-18.0 [facility] Comment on above: Performed By: #### C MP, T4, TSH #### [facility] [address] [place] [address] Dr. Kyra Patel Urea nitrogen/Creatinine [Mass ratio] 14.9 mg/mg Normal [facility] Comment on above: Performed By: #### C MP, T4, TSH #### [facility] [address] [place] [address] Dr. Kyra Patel SED RATE [facility]ALTHon 2022 SED RATE 4 mm/hr Normal <=15 [facility] Comment on above: Performed By: #### S EDR #### [facility] [address] [place] [address] Dr. Kyra Patel T4on 10-15-2022 T4 [Mass/Vol] 6.20 ug/dL Normal 4.50-12.10 [facility] Comment on above: Performed By: #### C MP, T4, TSH #### [facility] [address] [place] [address] Dr. Kyra Patel TSHon 10-15-2022 TSH 1.451 uIU/mL Normal 0.358-3.74 0 [facility] Comment on above: Performed By: #### C MP, T4, TSH #### [facility] [address] [place] [address] Dr. Kyra Patel Covid-19 PCR (CVDTB)on 06-25 SARS-CoV-2 (COVID-19) RNA COLBY+probe Ql (Unsp spec) Not detected Normal NOT DETECTED [facility] Comment on above: Result Comment: This test is not yet approved or cleared by the [place] FDA. When there are no FDA-approved or cleared tests available, and other criteria are met, FDA can make tests available under an emergency access mechanism called an Emergency Use Authorization (EUA). The EUA for this test is supported by the [place] of Health and Human Service's (HHS's) declaration [...] consistent with SARS-CoV-2. Performed By: #### C [facility] #### [facility] [address] [place] [address] Dr. Kyra Patel Covid-19 PCR ([facility])on 06-25 SARS-CoV-2 (COVID-19) RNA COLBY+probe Ql (Unsp spec) Detected Critically abnormal NOT DETECTED [facility] Comment on above: Result Comment: This test is not yet approved or cleared by the [place] FDA. When there are no FDA-approved or cleared tests available, and other criteria are met, FDA can make tests available under an emergency access mechanism called an Emergency Use Authorization (EUA). The EUA for this test is supported by the [place] of Health and Human Service's (HHS's) declaration [...] used). Performed By: #### C VDTBH #### [facility] [address] [address] [address] Kyra Patel CBC AUTO DIFFon 01-28-2022 BASO # 0.1 103/ul Normal 0.0-0.1 [facility] Comment on above: Performed By: #### C BC #### [facility] [address] [address] [address] Kyra Patel Basophils/100 WBC (Bld) 0.8 % Normal 0.2-2.0 [facility] Comment on above: Performed By: #### C BC #### [facility] [address] [place] [address] Dr. Kyra Patel EO # 0.2 103/ul Normal 0.0-0.7 [facility] Comment on above: Performed By: #### C BC #### [facility] [address] [place] [address] Dr. Kyra Patel Eosinophils/100 WBC (Bld) 2.1 % Normal 0.9-7.0 [facility] Comment on above: Performed By: #### C BC #### [facility] [address] [place] [address] Dr. Kyra Patel Erythrocyte distribution width (RBC) [Ratio] 13.7 % Normal 11.0-15.0 [facility] Comment on above: Performed By: #### C BC #### [facility] [address] [place] [address] Dr. Kyra Patel Hematocrit (Bld) [Volume fraction] 43.1 % Normal 42.0-54.0 [facility] Comment on above: Performed By: #### C BC #### [facility] [address] [place] [address] Dr. Kyra Patel Hemoglobin (Bld) [Mass/Vol] 14.7 g/dL Normal 14.0-18.0 [facility] Comment on above: Performed By: #### C BC #### [facility] [address] [place] [address] Dr. Kyra Patel IG # 0.05 10e3/ul Critically high 0.00-0.03 [facility] Comment on above: Performed By: #### C BC #### [facility] [address] [place] [address] Dr. Kyra Patel IG % 0.6 % Critically high 0.0-0.5 [facility] Comment on above: Performed By: #### C BC #### [facility] [address] [place] [address] Dr. Kyra Patel LYMPH # 2.4 103/ul Normal 1.2-3.8 [facility] Comment on above: Performed By: #### C BC #### [facility] [address] [place] [address] Dr. Kyra Patel Lymphocytes/100 WBC (Bld) 27.4 % Normal 20.5-60.0 [facility] Comment on above: Performed By: #### C BC #### [facility] [address] [place] [address] Dr. Kyra Patel MANUAL DIFF REQ NO Normal [facility] Comment on above: Performed By: #### C BC #### [facility] [address] [place] [address] Dr. Kyra Patel MCH (RBC) [Entitic mass] 34.0 pg Normal 25.9-34.0 [facility] Comment on above: Performed By: #### C BC #### [facility] [address] [place] [address] Dr. Kyra Patel MCHC (RBC) [Mass/Vol] 34.1 g/dL Normal 29.9-35.2 [facility] Comment on above: Performed By: #### C BC #### [facility] [address] [place] [address] Dr. Kyra Patel MCV (RBC) [Entitic vol] 99.8 fL Critically high 80.0-94.0 [facility] Comment on above: Performed By: #### C BC #### [facility] [address] [place] [address] Dr. Kyra Patel MONO # 0.9 103/ul Critically high 0.3-0.8 [facility] Comment on above: Performed By: #### C BC #### [facility] [address] [address] [address] Kyra Patel Monocytes/100 WBC (Bld) 9.8 % Normal 1.7-12.0 [facility] Comment on above: Performed By: #### C BC #### [facility] [address] [address] [address] Kyra Patel NEUT # 5.3 103/ul Normal 1.4-6.5 [facility] Comment on above: Performed By: #### C BC #### [facility] [address] [address] [address] Kyra Patel Neutrophils/100 WBC (Bld) 59.3 % Normal 43.0-75.0 [facility] Comment on above: Performed By: #### C BC #### [facility] [address] [place] [address] Dr. Kyra Patel Platelet mean volume (Bld) [Entitic vol] 9.8 fL Normal 9.5-13.5 [facility] Comment on above: Performed By: #### C BC #### [facility] [address] [place] [address] Dr. Kyra Patel PLT 195 103/ul Normal 150-450 [facility] Comment on above: Performed By: #### C BC #### [facility] [address] [place] [address] Dr. Kyra Patel RBC 4.32 106/ul Critically low 4.70-6.10 [facility] Comment on above: Performed By: #### C BC #### [facility] [address] [place] [address] Dr. Kyra Patel WBC 8.9 103/ul Normal 4.0-11.0 [facility] Comment on above: Performed By: #### C BC #### [facility] [address] [place] [address] Dr. Kyra Patel DIRECT LDLon 01-28-2022 Cholesterol in LDL [Mass/Vol] 135 mg/dL Normal [facility] Comment on above: Performed By: #### D LDL, CMP, LIPID #### [facility] [address] [address] [address] Kyra Patel DLDL NORMAL SEE BELOW Normal [facility] Comment on above: Result Comment: <100 mg/dl OPTIMAL 100 - 129 mg/dl NEAR OR ABOVE OPTIMAL 130 - 159 mg/dl BORDERLINE HIGH 160 - 189 mg/dl HIGH >190 mg/dl VERY HIGH Performed By: #### D LDL, CMP, LIPID #### [facility] [address] [address] [address] Kyra Patel LIPID PROFILEon 01-28-2022 CHOL-HDL RATIO NORM SEE BELOW Normal [facility] Comment on above: Result Comment: 3.3 - 4.4 LOW RISK 4.4 - 7.1 AVERAGE RISK 7.1 - 11.0 MODERATE RISK >11.0 HIGH RISK Performed By: #### D LDL, CMP, LIPID #### [facility] [address] [address] [address] Kyra Patel Cholesterol [Mass/Vol] 277 mg/dL Critically high <=200 [facility] Comment on above: Performed By: #### D LDL, CMP, LIPID #### [facility] [address] [address] [address] Kyra Patel Cholesterol in HDL [Mass/Vol] 36 mg/dL Critically low 40-60 [facility] Comment on above: Performed By: #### D LDL, CMP, LIPID #### [facility] [address] [id number] Kyra Patel Cholesterol in LDL [Mass/Vol] 81.6 mg/dL Normal [facility] Comment on above: Performed By: #### D LDL, CMP, LIPID #### [facility] [address] [place], [place] [address] Dr. Kyra Patel Cholesterol.total/Chol esterol in HDL [Mass ratio] 7.7 {ratio} Normal [facility] Comment on above: Performed By: #### D LDL, CMP, LIPID #### [facility] [address] [address] [address] Kyra Patel HDL NORMAL > or = 60 mg/dl - LO W CARDIOVASCULAR RISK <40 mg/dl - HIGH CARDIOVASCULAR RISK Normal [facility] Comment on above: Performed By: #### D LDL, CMP, LIPID #### [facility] [address] [address] [address] Kyra Patel LDL CALC NORMAL SEE BELOW Normal [facility] Comment on above: Result Comment: <100 mg/dl OPTIMAL 100 - 129 mg/dl NEAR OR ABOVE OPTIMAL 130 - 159 mg/dl BORDERLINE HIGH 160 - 189 mg/dl HIGH >190 mg/dl VERY HIGH Performed By: #### D LDL, CMP, LIPID #### [facility] [address] [address] [address] Kyra Patel Triglyceride [Mass/Vol] 797 mg/dL Critically high <=150 [facility] Comment on above: Performed By: #### D LDL, CMP, LIPID #### [facility] [address] [address] [address] Kyra Patel VLDL CALC 159.4 mg/dL Normal [facility] Comment on above: Performed By: #### D LDL, CMP, LIPID #### [facility] [address] [address] [address] Kyra Patel PROF 14(COMP METB)on 022 Albumin [Mass/Vol] 3.5 g/dL Normal 3.4-5.0 [facility] Comment on above: Performed By: #### D LDL, CMP, LIPID #### [facility] [address] [address] [address] Kyra Patel Albumin/Globulin [Mass ratio] 0.9 {ratio} Normal [facility] Comment on above: Performed By: #### D LDL, CMP, LIPID #### [facility] [address] [address] [address] Kyra Patel ALP [Catalytic activity/Vol] 78 U/L Normal 46-116 [facility] Comment on above: Performed By: #### D LDL, CMP, LIPID #### [facility] [address] [address] [address] Kyra Patel ALT [Catalytic activity/Vol] 50 U/L Normal 16-63 [facility] Comment on above: Performed By: #### D LDL, CMP, LIPID #### [facility] [address] [address] [address] Kyra Patel Anion gap [Moles/Vol] 13.7 mmol/L Normal [facility] Comment on above: Performed By: #### D LDL, CMP, LIPID #### [facility] [address] [address] [address] Kyra Patel AST [Catalytic activity/Vol] 30 U/L Normal 15-37 [facility] Comment on above: Performed By: #### D LDL, CMP, LIPID #### [facility] [address] [address] [address] Kyra Patel Bilirubin [Mass/Vol] 0.3 mg/dL Normal 0.2-1.0 [facility] Comment on above: Performed By: #### D LDL, CMP, LIPID #### [facility] [address] [place] [address] Dr. Kyra Patel Calcium [Mass/Vol] 8.6 mg/dL Normal 8.5-10.1 [facility] Comment on above: Performed By: #### D LDL, CMP, LIPID #### [facility] [address] [address] [address] Kyra Patel Chloride [Moles/Vol] 104 mmol/L Normal 98-107 [facility] Comment on above: Performed By: #### D LDL, CMP, LIPID #### [facility] [address] [address] [address] Kyra Patel CO2 [Moles/Vol] 23.8 mmol/L Normal 21.0-32.0 [facility] Comment on above: Performed By: #### D LDL, CMP, LIPID #### [facility] [address] [address] [address] Kyra Patel Creatinine [Mass/Vol] 1.02 mg/dL Normal 0.70-1.30 [facility] Comment on above: Performed By: #### D LDL, CMP, LIPID #### [facility] [address] [address] [address] Kyra Patel EGFR-AF ANDORRAN >60 Normal >=60 [facility] Comment on above: Performed By: #### D LDL, CMP, LIPID #### [facility] [address] [address] [address] Kyra Patel EGFR-NON AF ANDORRAN >60 Normal >=60 [facility] Comment on above: Performed By: #### D LDL, CMP, LIPID #### [facility] [address] [address] [address] Kyra Patel Globulin (S) [Mass/Vol] 3.7 g/dL Normal [facility] Comment on above: Performed By: #### D LDL, CMP, LIPID #### [facility] [address] [address] [address] Kyra Patel Glucose [Mass/Vol] 113 mg/dL Critically high 74-106 [facility] Comment on above: Performed By: #### D LDL, CMP, LIPID #### [facility] [address] [address] [address] Kyra Patel Potassium [Moles/Vol] 3.5 mmol/L Normal 3.5-5.1 [facility] Comment on above: Performed By: #### D LDL, CMP, LIPID #### [facility] [address] [address] [address] Kyra Patel Protein [Mass/Vol] 7.2 g/dL Normal 6.4-8.2 [facility] Comment on above: Performed By: #### D LDL, CMP, LIPID #### [facility] [address] [address] [address] Kyra Patel Sodium [Moles/Vol] 138 mmol/L Normal 136-145 [facility] Comment on above: Performed By: #### D LDL, CMP, LIPID #### [facility] [address] [address] [address] Kyra Patel Urea nitrogen [Mass/Vol] 12.0 mg/dL Normal 7.0-18.0 [facility] Comment on above: Performed By: #### D LDL, CMP, LIPID #### [facility] [address] [address] [address] Kyra Patel Urea nitrogen/Creatinine [Mass ratio] 11.8 mg/mg Normal [facility] Comment on above: Performed By: #### D LDL, CMP, LIPID #### [facility] [address] [address] [address] Kyra Patel Vital Signs Date Time Vital Sign Value Performing Clinician Facility 02-24-2024 08:57-0400 Body height 182.88 cm [employer]ARMACY [employer] SPECIALIST-C Agustina Andrews Work Phone: [facility] 02-24-2024 08:57-0400 Body mass index (BMI) [Ratio] 28.5 kg/m2 [facility] [employer]AIL SUPPORT SPECIALIST-C Agustina Juliana Work Phone: [facility] 02-24-2024 08:57-0400 Body temperature 98.3 [degF] PHARMACY RETAIL SUPPORT SPECIALIST-C Agustinakaren Bermanmer Work Phone: [facility] 02-24-2024 08:57-0400 Body weight 95.25 kg PHARMACY RETAIL SUPPORT SPECIALIST-C Agustina Bermanmer Work Phone: [facility] 02-24-2024 08:57-0400 Diastolic blood pressure 90 mm[Hg] PHARMACY RETAIL SUPPORT SPECIALIST-C Agustina Bermanmer Work Phone: [facility] 02-24-2024 08:57-0400 Heart rate 81 /min PHARMACY RETAIL SUPPORT SPECIALIST-C Agustinakaren Bermanmer Work Phone: [facility] 02-24-2024 08:57-0400 Respiratory rate 20 /min PHARMACY RETAIL SUPPORT SPECIALIST-C Agustina Bermanmer Work Phone: [facility] 02-24-2024 08:57-0400 SaO2% (BldA) [Mass fraction] 97 % PHARMACY RETAIL SUPPORT SPECIALIST-C Agustina Bermanmer Work Phone: [facility] 02-24-2024 08:57-0400 Systolic blood pressure 144 mm[Hg] PHARMACY RETAIL SUPPORT SPECIALIST-C Agustina Juliana Work Phone: [facility] 12-23-2023 08:57-0400 Body height 182.88 cm DO Lagotek Work Phone: [facility] 12-23-2023 08:57-0400 Body mass index (BMI) [Ratio] 28.7 kg/m2 DO Lagotek Work Phone: [facility] 12-23-2023 08:57-0400 Body temperature 98.6 [degF] DO Keagan House Work Phone: [facility] 12-23-2023 08:57-0400 Body weight 96.16 kg DO Keagan House Work Phone: [facility] 12-23-2023 08:57-0400 Diastolic blood pressure 90 mm[Hg] DO Keagan House Work Phone: [facility] 12-23-2023 08:57-0400 Heart rate 92 /min DO Keagan House Work Phone: [facility] 12-23-2023 08:57-0400 Respiratory rate 20 /min DO Keagan House Work Phone: [facility] 12-23-2023 08:57-0400 SaO2% (BldA) [Mass fraction] 95 % DO Keagan House Work Phone: [facility] 12-23-2023 08:57-0400 Systolic blood pressure 148 mm[Hg] DO Keagan House Work Phone: [facility] 10-19-2023 07:21-0400 Body height 182.88 cm DO Keagan House Work Phone: [facility] 10-19-2023 07:21-0400 Body mass index (BMI) [Ratio] 27.1 kg/m2 DO Keagan House Work Phone: [facility] 10-19-2023 07:21-0400 Body weight 90.71 kg DO Keagan House Work Phone: [facility] 10-19-2023 07:10-0400 Body temperature 97.2 [degF] DO Keagan House Work Phone: [facility] 10-19-2023 07:10-0400 Diastolic blood pressure 84 mm[Hg] DO Keagan House Work Phone: [facility] 10-19-2023 07:10-0400 Heart rate 87 /min DO Keagan House Work Phone: [facility] 10-19-2023 07:10-0400 Respiratory rate 20 /min DO Keagan House Work Phone: [facility] 10-19-2023 07:10-0400 Systolic blood pressure 149 mm[Hg] DO Keagan House Work Phone: [facility] 07-22-2023 07:58-0500 Body height 182.88 cm DO Keagan House Work Phone: [facility] 07-22-2023 07:58-0500 Body mass index (BMI) [Ratio] 27.1 kg/m2 DO Keagan House Work Phone: [facility] 07-22-2023 07:58-0500 Body weight 90.71 kg DO Keagan House Work Phone: [facility] 07-22-2023 07:45-0500 Diastolic blood pressure 81 mm[Hg] DO Keagan House Work Phone: [facility] 07-22-2023 07:45-0500 Heart rate 84 /min DO Keagan House Work Phone: [facility] 07-22-2023 07:45-0500 Respiratory rate 20 /min DO Keagan House Work Phone: [facility] 07-22-2023 07:45-0500 Systolic blood pressure 146 mm[Hg] DO Keagan House Work Phone: [facility] 07-07-2023 07:19-0500 Body temperature 97.8 [degF] DO Keagan House Work Phone: [facility] 06-18-2023 12:47-0500 Diastolic blood pressure 77 mm[Hg] DO Keagan House Work Phone: [facility] 06-18-2023 12:47-0500 Heart rate 78 /min DO Keagan House Work Phone: [facility] 06-18-2023 12:47-0500 Respiratory rate 18 /min DO Keagan House Work Phone: [facility] 06-18-2023 12:47-0500 SaO2% (BldA) [Mass fraction] 98 % DO Keagan House Work Phone: [facility] 06-18-2023 12:47-0500 Systolic blood pressure 131 mm[Hg] DO Keagan House Work Phone: [facility] 06-18-2023 05:13-0500 Body temperature 98 [degF] DO Keagan House Work Phone: [facility] 06-18-2023 05:12-0500 Body height 182.88 cm DO Keagan House Work Phone: [facility] 06-18-2023 05:12-0500 Body weight 90.71 kg DO Keagan House Work Phone: [facility] 05-31-2023 09:45-0500 Body height 182.88 cm Tony Lieberman Other [facility] Other 03-22-2023 10:30-0400 Body height 182.88 cm Tony Lieberman Other [facility] Other 03-22-2023 10:30-0400 Body mass index (BMI) [Ratio] 26.58 kg/m2 Drewrojsa Lieberman Other [facility] Other 03-22-2023 10:30-0400 Body temperature 98.2 [degF] Tony Lieberman Other [facility] Other 03-22-2023 10:30-0400 Body weight 88.91 kg Tony Lieberman Other [facility] Other 03-22-2023 10:30-0400 Diastolic blood pressure 72 mm[Hg] Tony Lieberman Other [facility] Other 03-22-2023 10:30-0400 Respiratory rate 20 /min Tony Lieberman Other [facility] Other 03-22-2023 10:30-0400 SaO2% (BldA) [Mass fraction] 96 % Tony Lieberman Other [facility] Other 03-22-2023 10:30-0400 Systolic blood pressure 120 mm[Hg] Tony Lieberman Other [facility] Other Encounters Encounter Date Encounter Type Care Provider Facility Start: 04-28-2024 End: 04-28-2024 Patient encounter procedure PHARMACY [employer]AIL SUPPORT SPECIALIST-C Agustina Andrews Work Phone: [facility] [place] Work Phone: Start: 04-28-2024 End: 04-28-2024 ambulatory Efren Esteves Facility:[facility] Start: 02-24-2024 End: 02-24-2024 ambulatory PHARMACY RETAIL SUPPORT SPECIALIST-C Agustina Andrews Work Phone: [facility] Work Phone: Start: 02-24-2024 End: 02-24-2024 Patient encounter procedure PHARMACY RETAIL SUPPORT SPECIALIST-C Agustinakaren Andrews Work Phone: [facility] Work Phone: Start: 01-17-2024 Non-patient / Non-visit PHARMACY RETAIL SUPPORT SPECIALIST-C Agustina Andrews Work Phone: [facility] Work Phone: Start: 01-17-2024 End: 01-17-2024 Patient encounter procedure PHARMACY RETAIL SUPPORT SPECIALIST-C Agustinakaren Andrews Work Phone: [facility] Work Phone: Start: 01-17-2024 End: 01-17-2024 ambulatory PHARMACY RETAIL SUPPORT SPECIALIST-C Agustina Michaelaramone Andrews Work Phone: [facility] Work Phone: Start: 12-23-2023 End: 12-23-2023 ambulatory DO Keagan House Work Phone: [facility] Work Phone: Start: 12-23-2023 End: 12-23-2023 Patient encounter procedure DO Keagan House Work Phone: [facility] Work Phone: Start: 10-19-2023 End: 10-19-2023 ambulatory DO Keagan House Work Phone: [facility] Work Phone: Start: 10-19-2023 End: 10-19-2023 Discharged Recurring DO Keagan House Work Phone: [facility] [place] Work Phone: Start: 07-22-2023 End: 07-22-2023 Patient encounter procedure DO Keagan House Work Phone: [facility] Work Phone: Start: 07-22-2023 End: 07-22-2023 ambulatory DO Keagan House Work Phone: [facility] Work Phone: Start: 07-22-2023 Registered Recurring DO Waqar s House Work Phone: [facility] [place] Work Phone: Start: 06-30-2023 ambulatory [facility] Start: 06-19-2023 Evaluation and management of inpatient CHOLO ANDERSON [facility] Start: 06-18-2023 Evaluation and management of inpatient [facility] Start: 06-18-2023 End: 06-19-2023 Evaluation and management of inpatient BRYON MOFFETT [facility] Start: 06-18-2023 End: 06-18-2023 Emergency department patient visit DO Keagan Oro Work Phone: [facility] Work Phone: Start: 05-31-2023 End: 05-31-2023 ambulatory Kamal Chaban Other [facility] Other Start: 05-31-2023 Office outpatient visit 15 minutes Kamal Chaban [facility] Start: 05-21-2023 End: 05-21-2023 Patient encounter procedure DO Keagan Oro Work Phone: [facility] [place] Work Phone: Start: 05-21-2023 End: 05-21-2023 ambulatory DO Keagan Oro Work Phone: [facility] Work Phone: Start: 03-22-2023 End: 03-22-2023 ambulatory Kamal Chaban Other [facility] Other Start: 03-22-2023 Office outpatient ne w 45 minutes Kamal Chaban [facility] Start: 12-10-2022 ambulatory Facility:[id number] Start: 11-24-2022 End: 11-24-2022 ambulatory MD Johnny Coronado Work Phone: [facility] Work Phone: Start: 11-24-2022 End: 11-24-2022 Patient encounter procedure MD Johnny Coronado Work Phone: [facility] [address] Work Phone: Start: 10-18-2022 Encounter for genera l adult medical examination without abnormal findings DR KEAGAN ORO [facility] Start: 10-15-2022 End: 03-24-[address] KEAGAN ORO Facility:[facility] Start: 10-15-2022 End: 10-16-2022 Encounter for general adult medical examination without abnormal findings DR KEAGAN ORO Facility:[facility] Start: 07-13-2022 End: 07-13-[address] KEAGAN ORO Facility:[facility] Start: 07-07-2022 End: 07-07-[address] KEAGAN ORO Facility:[facility] Start: 01-28-2022 End: 01-29-[address] KEAGAN ORO Facility:[facility] Procedures Date Procedure Procedure Detail Performing Clinician Start: 04-28-2024 CT of chest without contrast PHARMACY RETAIL SUPPORT SPECIALIST-C Agustina Andrews Work Phone: Start: 05-21-2023 CT of chest without contrast DO Keagan Oro Work Phone: Plan of Treatment Date Care Activity Detail Author Start: 11-24-2022 Hemolytic complement CH50 level [facility] Start: 11-24-2022 [facility] Lupus anticoagulant [Interpretation] in Platelet poor plasma [facility] Patient referral [facility] Work Phone: Thrombin time [facility] US Heart Transthoracic [facility] Payers Date Payer Category Payer Self-pay 1975 Unknown [id number] 2.16.84 [id number] 1975 Unknown [id number] 2.16.84 [id number] 1975 Unknown [id number] 2.16.84 [id number] 1975 Unknown [id number] .16.84 [id number] 1975 Unknown [id number] 2.16. [id number] 1959 Unknown [id number] Unknown [id number] 2.16.8 [id number] Unknown [id number] 2.16.8 [id number] Unknown [id number] 2.16.8 [id number] Unknown [id number] 2.16.8 [id number] Unknown [id number] 2.16.8 [id number] Unknown [id number] 2.16.8 [id number] Social History Date Type Detail Facility Tobacco smoking status [facility] Unknown if ever smoked [facility] Work Phone: Start: 1975 Sex Assigned At Male F [facility] Sex Assigned At Sex Assigned At Bir th [facility] Other Start: 06-18-2023 Tobacco smoking status [facility] Smoker (finding) [facility] Start: 07-22-2023 End: 10-19-2023 Tobacco smoking status [facility] Ex-smoker (finding) [facility] Start: 12-23-2023 End: 02-24-2024 Tobacco smoking status [facility] Current some day smoker [facility] Clinical Notes 03-22-2023 to 10-19-2023 Note Date & Type Note Facility 10-19-2023 Progress note Note Date/Time October 19, 2023 7:21am [facility] [address] [place] [address] Wound Center Provider Note Signed Patient: Ritchie Blair MR#: [id number] : 1975 Acct:[id number] Age/Sex: 48 / M Copies to: DO Jennifer Howard APRN~ HPI Date of Visit Date of Visit: Date of Service: 10/19/2023 Time of Service: 07:19 Narrative HPI: 06/22/23 Ritchie is a 47 year old presenting to [facility] wound care program for an initial visit for eval and treatment of a eschar areas to his fingers that isthe result of his 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 He follows with rheumatology and has been seen by vascular in [place] and he was told that he his blood flow is adequate for healing. We spoke in great detail today about what causes chronic inflammation in the body and what he can do to reduce this inflammation- his orders discussed many option for support of healing such as collagen, vit c, probiotics, and turmeric. He is taking plavix and although the turmeric and plavix can potentiate each other, a low dose of turmeric can be tried to see if this lowers his pain and inflammation. Topical coconut oil will be used for its anti-inflammatory properties as well as to reduce bacteria, viral, and fungal components. This healing process will be slow since this is a chronic condition but if he reduceshis alcohol intake, continues to not use tobacco, continues to avoid processed and sugary foods, and adopts a lower stress lifestyle with more sleep we should have success. 07/07/23 stable, saw rheumatology since last visit and some medication doses were adjusted and he had a reaction to sildenafil and so he will not be taking this any longer, same topical orders, he has started the vit c, coconut oil orally and the turmeric orally, we did encourage the collagen and probiotic as well, 10-14 day appt, no acute infection noted 07/22/23 stable, the right hand is particularly better, he has not yet started the collagen or probiotics, I did discuss natural ways to assist with raynauds disease and these were discussed and typed on his discharge paperwork, he will see rheum today, 7-14 day appt, no acute infection noted 08/12/23 again stable, will make a referral to hand surgeon to see what they think about the nail and eschar on the left hand- since we are told that blood flow is adequate, maybe a removal of the nail and eschar could facilitate healing, spoke about supplements again that can help with the immune system and fight inflammation, 2-3 week appt, no signs of infection noted, right hand is again the better looking of the two, stopped the topical turmeric d/t discomfort 09/02/23 right hand looks much better, nearly healed, the nail on the left 5th finger did fall off on its own, the referral was not made to the hand surgeon but we will consider this again as needed, crosshatching was done on the soft eschar today, has not started any new supplements, 3 week appt, same topical as last visit with the coconut oil 2/29/24 right hand has fissures no open areas, left finger looks stable, changedto honey gel today, no acute infection noted 10/19/23 area has improved, can do a 1 month or more appt, can alternate honey gel and coconut oil, no acute infection noted Subjective Pain Finger: Pain Description: Intermittent Pain Intensity: 4 Wound/Ulcer History When did wound start?: Early May 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 Lives with:: Spouse Appetite Description: Within Normal Limits Who helps w/ dressing change?: Self Smoking Status: Former smoker [facility] Medical History (Updated 08/12/23 @ 07:37 by Jennifer Koenig APRN) History of gangrene Raynaud disease Hypertension Surgical History History of cholecystectomy Family History (Updated 05/31/23 @ 09:45 by Provider Conversion) Father History of stroke Legacy FamHx Problem: Diagnosed with Stroke Social History Smoking Status: Former smoker Tobacco Type: cigarettes Substance Use Type: Alcohol (per his statement he says that he drinks too much- he did not give a quantity) Substance Abuse Comment: daily Grafts History of Graft History of Graft?: No Exam Physical Exam Vital Signs: Temp Pulse Resp BP O2 Del Method 97.2 F L 87 20 149/84 H Room Air 10/19/23 07:10 10/19/23 07:10 10/19/23 07:10 10/19/23 07:10 10/19/23 07:10 Const General: cooperative, healthy appearing, comfortable, no acute distress and wellgroomed Nutritional Appearance: overweight Orientation: alert, awake and oriented x3 Lower/Upper Extremity Exam Vascular Exam-Pulses Left Brachial: Pulse Assessment Method: NIBP Objective Meds/Allergies Home Medications atenolol 100 mg tablet 150 mg PO DAILY 06/18/23 [History Confirmed 08/12/23] nifedipine 60 mg tablet,extended release 60 mg PO DAILY 06/18/23 [History Confirmed 07/07/23] omeprazole 20 mg capsule,delayed release 20 mg PO DAILY 06/18/23 [History Confirmed 08/12/23] sertraline 100 mg tablet 100 mg PO DAILY 06/18/23 [History Confirmed 08/12/23] varenicline 1 mg tablet 1 mg PO BID 06/18/23 [History Confirmed 08/12/23] cholestyramine (with sugar) 4 gram oral powder 4 g PO BID 06/22/23 [History Confirmed 07/07/23] clopidogrel 75 mg tablet (Plavix) 75 mg PO DAILY 06/22/23 [History Confirmed 08/12/23] Allergies No Known Allergies Allergy (Verified 08/12/23 07:35) Wound/Ulcer Left Finger - 5th Digit: Type: inflammatory- raynauds Bed Appearance: Brown and Yellow Percent of Wound Bed Granulated/Red: 0 Percent of Devitalized: 100 Length (cm): 0.3 Width (cm): 0.8 Depth (cm): 0.1 CM Sq: 0.240 Surrounding Tissue Appearance: [place] Surrounding Tissue Temp: Warm Drainage Amount: Scant Drainage Description: Yellow Drainage Odor: No Odor Results Height: 6 ft Weight: 90.718 kg Body Mass Index: 27.1 Assessment/Plan Assessment/Plan (1) Dry gangrene: Code(s): I96 - Gangrene, not elsewhere classified (2) Raynaud disease: Qualifiers: Raynaud?s-associated gangrene presence: with gangrene Qualified Code(s): I73.01 - Raynaud's syndrome with gangrene Code(s): I73.00 - Raynaud's syndrome without gangrene (3) Inflammation: (4) Buergers disease: Code(s): I73.1 - 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] (5) Pain: Code(s): R52 - Pain, unspecified (6) Autoimmune disorder: Code(s): D89.89 - Other specified disorders involving the immune mechanism, not elsewhereclassified Plan see orders and hpi Time spent with patient Time Spent With Patient (min): 10 Dictated By: Jennifer Koenig APRN DD/ 8 Signed By: <Electronically signed by RITU Koenig> 10/19/2321 [facility] Work Phone: 1(630) 461-814302-29-2024 Progress note Author Jennifer Koenig [facility] September 23, 2023 7:36am Note Date/Time September 23, 2023 7:36am [facility] [address] [place] [address] Wound Center Provider Note Signed Patient: Ritchie Blair MR#: [id number] : 1975 Acct:[id number] Age/Sex: 48 / M Copies to: DO Jennifer Howard APRN~ HPI Date of Visit Date of Visit: Date of Service: 09/23/2023 Time of Service: 07:29 Narrative HPI: 06/22/23 Ritchie is a 47 year old presenting to [facility] wound care program for an initial visit for eval and treatment of a eschar areas to his fingers that isthe result of his 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 He follows with rheumatology and has been seen by vascular in [place] and he was told that he his blood flow is adequate for healing. We spoke in great detail today about what causes chronic inflammation in the body and what he can do to reduce this inflammation- his orders discussed many option for support of healing such as collagen, vit c, probiotics, and turmeric. He is taking plavix and although the turmeric and plavix can potentiate each other, a low dose of turmeric can be tried to see if this lowers his pain and inflammation. Topical coconut oil will be used for its anti-inflammatory properties as well as to reduce bacteria, viral, and fungal components. This healing process will be slow since this is a chronic condition but if he reduceshis alcohol intake, continues to not use tobacco, continues to avoid processed and sugary foods, and adopts a lower stress lifestyle with more sleep we should have success. 07/07/23 elicia, saw rheumatology since last visit and some medication doses were adjusted and he had a reaction to sildenafil and so he will not be taking this any longer, same topical orders, he has started the vit c, coconut oil orally and the turmeric orally, we did encourage the collagen and probiotic as well, 10-14 day appt, no acute infection noted 07/22/23 elicia, the right hand is particularly better, he has not yet started the collagen or probiotics, I did discuss natural ways to assist with raynauds disease and these were discussed and typed on his discharge paperwork, he will see rheum today, 7-14 day appt, no acute infection noted 08/12/23 again stable, will make a referral to hand surgeon to see what they think about the nail and eschar on the left hand- since we are told that blood flow is adequate, maybe a removal of the nail and eschar could facilitate healing, spoke about supplements again that can help with the immune system and fight inflammation, 2-3 week appt, no signs of infection noted, right hand is again the better looking of the two, stopped the topical turmeric d/t discomfort 09/02/23 right hand looks much better, nearly healed, the nail on the left 5th finger did fall off on its own, the referral was not made to the hand surgeon but we will consider this again as needed, crosshatching was done on the soft eschar today, has not started any new supplements, 3 week appt, same topical as last visit with the coconut oil 09/23/23 right hand has fissures no open areas, left finger looks stable, changedto honey gel today, no acute infection noted Subjective Pain Finger: Pain Intensity: 0 Wound/Ulcer History When did wound start?: Early May 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 Lives with:: Spouse Appetite Description: Within Normal Limits Who helps w/ dressing change?: Self Smoking Status: Former smoker [facility] Medical History (Updated 08/12/23 @ 07:37 by Jennifer Koenig APRN) History of gangrene Raynaud disease Hypertension Surgical History History of cholecystectomy Family History (Updated 05/31/23 @ 09:45 by Provider Conversion) Father History of stroke Legacy FamHx Problem: Diagnosed with Stroke Social History Smoking Status: Former smoker Tobacco Type: cigarettes Substance Use Type: Alcohol (per his statement he says that he drinks too much- he did not give a quantity) Substance Abuse Comment: daily Grafts History of Graft History of Graft?: No Exam Physical Exam Vital Signs: Temp Pulse Resp BP O2 Del Method 97.9 F 79 20 171/76 H Room Air 09/23/23 07:20 09/23/23 07:20 09/23/23 07:20 09/23/23 07:20 09/23/23 07:20 Const General: cooperative, healthy appearing, comfortable, no acute distress and wellgroomed Nutritional Appearance: overweight Orientation: alert, awake and oriented x3 Lower/Upper Extremity Exam Vascular Exam-Pulses Left Brachial: Pulse Assessment Method: Diagnostic Monitor Objective Meds/Allergies Home Medications atenolol 100 mg tablet 150 mg PO DAILY 06/18/23 [History Confirmed 08/12/23] nifedipine 60 mg tablet,extended release 60 mg PO DAILY 06/18/23 [History Confirmed 07/07/23] omeprazole 20 mg capsule,delayed release 20 mg PO DAILY 06/18/23 [History Confirmed 08/12/23] sertraline 100 mg tablet 100 mg PO DAILY 06/18/23 [History Confirmed 08/12/23] varenicline 1 mg tablet 1 mg PO BID 06/18/23 [History Confirmed 08/12/23] cholestyramine (with sugar) 4 gram oral powder 4 g PO BID 06/22/23 [History Confirmed 07/07/23] clopidogrel 75 mg tablet (Plavix) 75 mg PO DAILY 06/22/23 [History Confirmed 08/12/23] Allergies No Known Allergies Allergy (Verified 08/12/23 07:35) Wound/Ulcer Right Finger - 3rd Digit: Type: inflammatory- raynauds Bed Appearance: Other Length (cm): 0 Width (cm): 0 Depth (cm): 0 CM Sq: 0.000 Surrounding Tissue Appearance: Ethnic/Norm Surrounding Tissue Temp: Warm Drainage Amount: None Drainage Odor: No Odor Left Finger - 5th Digit: Type: inflammatory- raynauds Bed Appearance: Black Moist, Brown and Yellow Percent of Wound Bed Granulated/Red: 0 Percent of Devitalized: 100 Length (cm): 0.8 Width (cm): 1.2 Depth (cm): 0.1 CM Sq: 0.960 Surrounding Tissue Appearance: [place] Surrounding Tissue Temp: Warm Drainage Amount: Scant Drainage Description: Yellow Drainage Odor: No Odor Lidocaine Applied Topically: 2% Jelly Procedures Procedure: a scalpel was used to crosshatch the area on the left 5th finger, no tissue was removed, this was not a debridement, he did have some discomfort and the procedure was stopped Results Height: 6 ft Weight: 90.718 kg Body Mass Index: 27.1 Assessment/Plan Assessment/Plan (1) Dry gangrene: Code(s): I96 - Gangrene, not elsewhere classified (2) Raynaud disease: Qualifiers: Raynaud?s-associated gangrene presence: with gangrene Qualified Code(s): I73.01 - Raynaud's syndrome with gangrene Code(s): I73.00 - Raynaud's syndrome without gangrene (3) Inflammation: (4) Buergers disease: Code(s): I73.1 - 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] (5) Pain: Code(s): R52 - Pain, unspecified (6) Autoimmune disorder: Code(s): D89.89 - Other specified disorders involving the immune mechanism, not elsewhereclassified Plan see orders and hpi Time spent with patient Time Spent With Patient (min): 11 Dictated By: Jennifer Koenig APRN DD/ 8 Signed By: <Electronically signed by RITU Koenig> 09/23/23 0736 [facility] Work Phone: 1(394) 729-638202-08-2024 Progress note Author Jennifer Koenig [facility] September 02, 2023 7:25am Note Date/Time September 02, 2023 7 :25am [facility] [address] [place] [address] Wound Center Provider Note Signed Patient: Ritchie Blair MR#: [id number] : 1975 Acct:[id number] Age/Sex: 48 / M Copies to: DO Jennifer Howard APRN~ HPI Date of Visit Date of Visit: Date of Service: 09/02/2023 Time of Service: 07:20 Narrative HPI: 06/22/23 Ritchie is a 47 year old presenting to [facility] wound care program for an initial visit for eval and treatment of a eschar areas to his fingers that isthe result of his 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 He follows with rheumatology and has been seen by vascular in [place] and he was told that he his blood flow is adequate for healing. We spoke in great detail today about what causes chronic inflammation in the body and what he can do to reduce this inflammation- his orders discussed many option for support of healing such as collagen, vit c, probiotics, and turmeric. He is taking plavix and although the turmeric and plavix can potentiate each other, a low dose of turmeric can be tried to see if this lowers his pain and inflammation. Topical coconut oil will be used for its anti-inflammatory properties as well as to reduce bacteria, viral, and fungal components. This healing process will be slow since this is a chronic condition but if he reduceshis alcohol intake, continues to not use tobacco, continues to avoid processed and sugary foods, and adopts a lower stress lifestyle with more sleep we should have success. 07/07/23 stable, saw rheumatology since last visit and some medication doses were adjusted and he had a reaction to sildenafil and so he will not be taking this any longer, same topical orders, he has started the vit c, coconut oil orally and the turmeric orally, we did encourage the collagen and probiotic as well, 10-14 day appt, no acute infection noted 07/22/23 stable, the right hand is particularly better, he has not yet started the collagen or probiotics, I did discuss natural ways to assist with raynauds disease and these were discussed and typed on his discharge paperwork, he will see rheum today, 7-14 day appt, no acute infection noted 08/12/23 again stable, will make a referral to hand surgeon to see what they think about the nail and eschar on the left hand- since we are told that blood flow is adequate, maybe a removal of the nail and eschar could facilitate healing, spoke about supplements again that can help with the immune system and fight inflammation, 2-3 week appt, no signs of infection noted, right hand is again the better looking of the two, stopped the topical turmeric d/t discomfort 09/02/23 right hand looks much better, nearly healed, the nail on the left 5th finger did fall off on its own, the referral was not made to the hand surgeon but we will consider this again as needed, crosshatching was done on the soft eschar today, has not started any new supplements, 3 week appt, same topical as last visit with the coconut oil Subjective Pain Finger: Pain Intensity: 5 Wound/Ulcer History When did wound start?: Early May 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 Lives with:: Spouse Appetite Description: Within Normal Limits Who helps w/ dressing change?: Self Smoking Status: Former smoker [facility] Medical History (Updated 08/12/23 @ 07:37 by Jennifer Koenig APRN) History of gangrene Raynaud disease Hypertension Surgical History History of cholecystectomy Social History Smoking Status: Former smoker Tobacco Type: cigarettes Substance Use Type: Alcohol (per his statement he says that he drinks too much- he did not give a quantity) Substance Abuse Comment: daily Grafts History of Graft History of Graft?: No Exam Physical Exam Vital Signs: Temp Pulse Resp BP O2 Del Method 97.3 F L 78 20 151/98 H Room Air 09/02/23 07:11 09/02/23 07:11 09/02/23 07:11 09/02/23 07:11 09/02/23 07:11 Const General: cooperative, healthy appearing, comfortable, no acute distress and wellgroomed Nutritional Appearance: overweight Orientation: alert, awake and oriented x3 Lower/Upper Extremity Exam Vascular Exam-Pulses Left Brachial: Pulse Assessment Method: NIBP Objective Meds/Allergies Home Medications atenolol 100 mg tablet 150 mg PO DAILY 06/18/23 [History Confirmed 08/12/23] nifedipine 60 mg tablet,extended release 60 mg PO DAILY 06/18/23 [History Confirmed 07/07/23] omeprazole 20 mg capsule,delayed release 20 mg PO DAILY 06/18/23 [History Confirmed 08/12/23] sertraline 100 mg tablet 100 mg PO DAILY 06/18/23 [History Confirmed 08/12/23] varenicline 1 mg tablet 1 mg PO BID 06/18/23 [History Confirmed 08/12/23] cholestyramine (with sugar) 4 gram oral powder 4 g PO BID 06/22/23 [History Confirmed 07/07/23] clopidogrel 75 mg tablet (Plavix) 75 mg PO DAILY 06/22/23 [History Confirmed 08/12/23] Allergies No Known Allergies Allergy (Verified 08/12/23 07:35) Wound/Ulcer Right Finger - 3rd Digit: Type: inflammatory- raynauds Bed Appearance: [place] and Yellow Percent of Wound Bed Granulated/Red: 99 Percent of Devitalized: 1 Length (cm): 0.1 Width (cm): 0.1 Depth (cm): 0.1 CM Sq: 0.010 Surrounding Tissue Appearance: Ethnic/Norm Surrounding Tissue Temp: Warm Drainage Amount: Scant Drainage Description: Yellow Drainage Odor: No Odor Left Finger - 5th Digit: Type: inflammatory- raynauds Bed Appearance: Black Moist, Brown and Yellow Percent of Wound Bed Granulated/Red: 0 Percent of Devitalized: 100 Length (cm): 0.7 Width (cm): 1 Depth (cm): 0.1 CM Sq: 0.700 Surrounding Tissue Appearance: [place] Surrounding Tissue Temp: Warm Drainage Amount: Scant Drainage Description: Yellow Drainage Odor: No Odor Lidocaine Applied Topically: 2% Jelly Procedures Time Out: 2 Patient Identifiers, Correct Patient, Correct Side/Site, Correct Procedure and Safety Issues Reviewed Procedure: A scalpel was used to crosshatch the left 5th finger devitalized tissue- topicallidocaine was used prior- he tolerated the crosshatch well- this was not a debridement and no bleeding did occur and no tissue was removed. Results Height: 6 ft Weight: 90.718 kg Body Mass Index: 27.1 Assessment/Plan Assessment/Plan (1) Dry gangrene: Code(s): I96 - Gangrene, not elsewhere classified (2) Raynaud disease: Qualifiers: Raynaud?s-associated gangrene presence: with gangrene Qualified Code(s): I73.01 - Raynaud's syndrome with gangrene Code(s): I73.00 - Raynaud's syndrome without gangrene (3) Inflammation: (4) Buergers disease: Code(s): I73.1 - 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] (5) Pain: Code(s): R52 - Pain, unspecified (6) Autoimmune disorder: Code(s): D89.89 - Other specified disorders involving the immune mechanism, not elsewhereclassified Plan see orders and hpi Time spent with patient Time Spent With Patient (min): 11 Dictated By: Jennifer Koenig APRN DD/ 9 Signed By: <Electronically signed by RITU Koenig> 09/02/2325 [facility] Work Phone: 1(749) 708-342501-18-2024 Progress note Author Jennifer Koenig [facility] August 12, 2023 7:37am Note Date/Time August 12, 2023 7 :37am [facility] [address] [place] [address] Wound Center Provider Note Signed Patient: Ritchie Blair MR#: [id number] : 1975 Acct:[id number] Age/Sex: 47 / M Copies to: DO Jennifer Howard APRN~ HPI Date of Visit Date of Visit: Date of Service: 08/12/2023 Time of Service: 07:33 Narrative HPI: 06/22/23 Ritchie is a 47 year old presenting to [facility] wound care program for an initial visit for eval and treatment of a eschar areas to his fingers that isthe result of his 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 He follows with rheumatology and has been seen by vascular in [place] and he was told that he his blood flow is adequate for healing. We spoke in great detail today about what causes chronic inflammation in the body and what he can do to reduce this inflammation- his orders discussed many option for support of healing such as collagen, vit c, probiotics, and turmeric. He is taking plavix and although the turmeric and plavix can potentiate each other, a low dose of turmeric can be tried to see if this lowers his pain and inflammation. Topical coconut oil will be used for its anti-inflammatory properties as well as to reduce bacteria, viral, and fungal components. This healing process will be slow since this is a chronic condition but if he reduceshis alcohol intake, continues to not use tobacco, continues to avoid processed and sugary foods, and adopts a lower stress lifestyle with more sleep we should have success. 07/07/23 elicia, saw rheumatology since last visit and some medication doses were adjusted and he had a reaction to sildenafil and so he will not be taking this any longer, same topical orders, he has started the vit c, coconut oil orally and the turmeric orally, we did encourage the collagen and probiotic as well, 10-14 day appt, no acute infection noted 07/22/23 stable, the right hand is particularly better, he has not yet started the collagen or probiotics, I did discuss natural ways to assist with raynauds disease and these were discussed and typed on his discharge paperwork, he will see rheum today, 7-14 day appt, no acute infection noted 08/12/23 again stable, will make a referral to hand surgeon to see what they think about the nail and eschar on the left hand- since we are told that blood flow is adequate, maybe a removal of the nail and eschar could facilitate healing, spoke about supplements again that can help with the immune system and fight inflammation, 2-3 week appt, no signs of infection noted, right hand is again the better looking of the two, stopped the topical turmeric d/t discomfort Subjective Pain Finger: Pain Intensity: 7 Wound/Ulcer History When did wound start?: Early May 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 Lives with:: Spouse Appetite Description: Within Normal Limits Who helps w/ dressing change?: Self Smoking Status: Former smoker [facility] Medical History (Updated 08/12/23 @ 07:37 by Jennifer Koenig APRN) History of gangrene Raynaud disease Hypertension Surgical History History of cholecystectomy Social History Smoking Status: Former smoker Tobacco Type: cigarettes Substance Use Type: Alcohol (per his statement he says that he drinks too much- he did not give a quantity) Substance Abuse Comment: daily Grafts History of Graft History of Graft?: No Exam Physical Exam Vital Signs: Temp Pulse Resp BP O2 Del Method 97.3 F L 86 20 170/94 H Room Air 08/12/23 07:27 08/12/23 07:27 08/12/23 07:27 08/12/23 07:27 08/12/23 07:27 Const General: cooperative, healthy appearing, comfortable, no acute distress and wellgroomed Nutritional Appearance: overweight Orientation: alert, awake and oriented x3 Lower/Upper Extremity Exam Vascular Exam-Pulses Left Brachial: Pulse Assessment Method: NIBP Objective Meds/Allergies Home Medications atenolol 100 mg tablet 150 mg PO DAILY 06/18/23 [History Confirmed 08/12/23] nifedipine 60 mg tablet,extended release 60 mg PO DAILY 06/18/23 [History Confirmed 07/07/23] omeprazole 20 mg capsule,delayed release 20 mg PO DAILY 06/18/23 [History Confirmed 08/12/23] sertraline 100 mg tablet 100 mg PO DAILY 06/18/23 [History Confirmed 08/12/23] varenicline 1 mg tablet 1 mg PO BID 06/18/23 [History Confirmed 08/12/23] cholestyramine (with sugar) 4 gram oral powder 4 g PO BID 06/22/23 [History Confirmed 07/07/23] clopidogrel 75 mg tablet (Plavix) 75 mg PO DAILY 06/22/23 [History Confirmed 08/12/23] Allergies No Known Allergies Allergy (Verified 08/12/23 07:35) Wound/Ulcer Right Finger - 3rd Digit: Type: inflammatory- raynauds Bed Appearance: Brown, [place] and Yellow Percent of Wound Bed Granulated/Red: 10 Percent of Devitalized: 90 Length (cm): 0.3 Width (cm): 0.6 Depth (cm): 0.1 CM Sq: 0.180 Surrounding Tissue Appearance: Ethnic/Norm Surrounding Tissue Temp: Warm Drainage Amount: Scant Drainage Description: Yellow Drainage Odor: No Odor Left Finger - 5th Digit: Type: inflammatory- raynauds Bed Appearance: Black Dry Percent of Wound Bed Granulated/Red: 0 Percent of Devitalized: 100 Length (cm): 0.5 Width (cm): 1.2 Depth (cm): 0.1 CM Sq: 0.600 Surrounding Tissue Appearance: [place] Surrounding Tissue Temp: Warm Drainage Amount: Scant Drainage Description: Yellow Drainage Odor: No Odor Results Height: 6 ft Weight: 90.718 kg Body Mass Index: 27.1 Assessment/Plan Assessment/Plan (1) Dry gangrene: Code(s): I96 - Gangrene, not elsewhere classified (2) Raynaud disease: Qualifiers: Raynaud?s-associated gangrene presence: with gangrene Qualified Code(s): I73.01 - Raynaud's syndrome with gangrene Code(s): I73.00 - Raynaud's syndrome without gangrene (3) Inflammation: (4) Buergers disease: Code(s): I73.1 - 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] (5) Pain: Code(s): R52 - Pain, unspecified (6) Autoimmune disorder: Code(s): D89.89 - Other specified disorders involving the immune mechanism, not elsewhereclassified Plan see orders and hpi Time spent with patient Time Spent With Patient (min): 11 Dictated By: Jennifer Koenig APRN DD/ 0733 Signed By: <Electronically signed by RITU Koenig> 08/12/23 0737 [facility] Work Phone: [phone]) 868-620012-28-2023 Progress note Author Jennifer Koenig [facility] July 22, 2023 7:58am Note Date/Time July 22, 2023 7:58am [facility] [address] [place] [address] Wound Center Provider Note Signed Patient: Ritchie Blair MR#: [id number] : 1975 Acct:[id number] Age/Sex: 47 / M Copies to: DO Jennifer Howard APRN~ HPI Date of Visit Date of Visit: Date of Service: 07/22/2023 Time of Service: 07:55 Narrative HPI: 06/22/23 Ritchie is a 47 year old presenting to [facility] wound care program for an initial visit for eval and treatment of a eschar areas to his fingers that isthe result of his 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 He follows with rheumatology and has been seen by vascular in [place] and he was told that he his blood flow is adequate for healing. We spoke in great detail today about what causes chronic inflammation in the body and what he can do to reduce this inflammation- his orders discussed many option for support of healing such as collagen, vit c, probiotics, and turmeric. He is taking plavix and although the turmeric and plavix can potentiate each other, a low dose of turmeric can be tried to see if this lowers his pain and inflammation. Topical coconut oil will be used for its anti-inflammatory properties as well as to reduce bacteria, viral, and fungal components. This healing process will be slow since this is a chronic condition but if he reduceshis alcohol intake, continues to not use tobacco, continues to avoid processed and sugary foods, and adopts a lower stress lifestyle with more sleep we should have success. 07/07/23 stable, saw rheumatology since last visit and some medication doses were adjusted and he had a reaction to sildenafil and so he will not be taking this any longer, same topical orders, he has started the vit c, coconut oil orally and the turmeric orally, we did encourage the collagen and probiotic as well, 10-14 day appt, no acute infection noted 07/22/23 stable, the right hand is particularly better, he has not yet started the collagen or probiotics, I did discuss natural ways to assist with raynauds disease and these were discussed and typed on his discharge paperwork, he will see rheum today, 7-14 day appt, no acute infection noted Subjective Pain Finger: Pain Intensity: 8 Pain Management Techniques Other/Comment: 07/22/2023 I haven't taken any medication yet today Wound/Ulcer History When did wound start?: Early May 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 Lives with:: Spouse Appetite Description: Within Normal Limits Who helps w/ dressing change?: Self Smoking Status: Former smoker [facility] Medical History (Updated 07/07/23 @ 07:29 by Jennifer Koenig APRN) History of gangrene Hypertension Raynaud disease Surgical History History of cholecystectomy Social History Smoking Status: Former smoker Tobacco Type: cigarettes Substance Use Type: Alcohol (per his statement he says that he drinks too much- he did not give a quantity) Substance Abuse Comment: daily Grafts History of Graft History of Graft?: No Exam Physical Exam Vital Signs: Temp Pulse Resp BP O2 Del Method 97.8 F 84 20 146/81 H Room Air 07/07/23 07:19 07/22/23 07:45 07/22/23 07:45 07/22/23 07:45 07/22/23 07:45 Const General: cooperative, healthy appearing, comfortable, no acute distress and wellgroomed Nutritional Appearance: overweight Orientation: alert, awake and oriented x3 Lower/Upper Extremity Exam Vascular Exam-Pulses Left Radial: Pulse Assessment Method: NIBP Objective Meds/Allergies Home Medications atenolol 100 mg tablet 150 mg PO DAILY 06/18/23 [History Confirmed 07/07/23] nifedipine 60 mg tablet,extended release 60 mg PO DAILY 06/18/23 [History Confirmed 07/07/23] omeprazole 20 mg capsule,delayed release 20 mg PO DAILY 06/18/23 [History Confirmed 07/07/23] sertraline 100 mg tablet 100 mg PO DAILY 06/18/23 [History Confirmed 07/07/23] varenicline 1 mg tablet 1 mg PO BID 06/18/23 [History Confirmed 07/07/23] cholestyramine (with sugar) 4 gram oral powder 4 g PO BID 06/22/23 [History Confirmed 07/07/23] clopidogrel 75 mg tablet (Plavix) 75 mg PO DAILY 06/22/23 [History Confirmed 07/07/23] Allergies No Known Allergies Allergy (Verified 06/18/23 05:12) Wound/Ulcer Right Finger - 3rd Digit: Type: inflammatory- raynauds Bed Appearance: Brown, [place] and Yellow Percent of Wound Bed Granulated/Red: 5 Percent of Devitalized: 95 Length (cm): 0.4 Width (cm): 1 Depth (cm): 0.1 CM Sq: 0.400 Surrounding Tissue Appearance: Ethnic/Norm Surrounding Tissue Temp: Warm Drainage Amount: Scant Drainage Description: Yellow Drainage Odor: No Odor Left Finger - 5th Digit: Type: inflammatory- raynauds Bed Appearance: Black Dry Percent of Wound Bed Granulated/Red: 0 Percent of Devitalized: 100 Length (cm): 0.6 Width (cm): 1.2 Depth (cm): 0.1 CM Sq: 0.720 Surrounding Tissue Appearance: Ethnic/Norm Surrounding Tissue Temp: Warm Drainage Amount: Scant Drainage Description: Yellow Drainage Odor: No Odor Results Height: 6 ft Weight: 90.718 kg Body Mass Index: 27.1 Assessment/Plan Assessment/Plan (1) Dry gangrene: (2) Raynaud disease: Qualifiers: Raynaud?s-associated gangrene presence: with gangrene Qualified Code(s): I73.01 - Raynaud's syndrome with gangrene (3) Inflammation: (4) Buergers disease: (5) Pain: Plan see orders and hpi Time spent with patient Time Spent With Patient (min): 12 Dictated By: Jennifer Koenig APRN DD/ 075 Signed By: <Electronically signed by RITU Koenig> 07/22/23 0758 [facility] Work Phone: 1(157) 957-397612-13-2023 Progress note Author Jennifer Koenig [facility] July 07, 2023 7:29am Note Date/Time July 07, 2023 7:29am [facility] [address] [place] [address] Wound Center Provider Note Signed Patient: Ritchie Blair MR#: [id number] : 1975 Acct:[id number] Age/Sex: 47 / M Copies to: DO Jennifer Howard APRN~ HPI Date of Visit Date of Visit: Date of Service: 07/07/2023 Time of Service: 07:25 Narrative HPI: 06/22/23 Ritchie is a 47 year old presenting to [facility] wound care program for an initial visit for eval and treatment of a eschar areas to his fingers that isthe result of his 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 He follows with rheumatology and has been seen by vascular in [place] and he was told that he his blood flow is adequate for healing. We spoke in great detail today about what causes chronic inflammation in the body and what he can do to reduce this inflammation- his orders discussed many option for support of healing such as collagen, vit c, probiotics, and turmeric. He is taking plavix and although the turmeric and plavix can potentiate each other, a low dose of turmeric can be tried to see if this lowers his pain and inflammation. Topical coconut oil will be used for its anti-inflammatory properties as well as to reduce bacteria, viral, and fungal components. This healing process will be slow since this is a chronic condition but if he reduceshis alcohol intake, continues to not use tobacco, continues to avoid processed and sugary foods, and adopts a lower stress lifestyle with more sleep we should have success. 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 Lives with:: Spouse Appetite Description: Within Normal Limits Who helps w/ dressing change?: Self Smoking Status: Former smoker [facility] Medical History (Updated 07/07/23 @ 07:29 by Jennifer Koenig APRN) History of gangrene Hypertension Raynaud disease Surgical History History of cholecystectomy Social History Smoking Status: Former smoker Tobacco Type: cigarettes Substance Use Type: Alcohol (per his statement he says that he drinks too much- he did not give a quantity) Substance Abuse Comment: daily Grafts History of Graft History of Graft?: No Exam Physical Exam Vital Signs: Temp Pulse Resp BP O2 Del Method 97.8 F 85 20 178/93 H Room Air 07/07/23 07:19 07/07/23 07:19 07/07/23 07:19 07/07/23 07:19 07/07/23 07:19 Const General: cooperative, healthy appearing, comfortable, no acute distress and wellgroomed Nutritional Appearance: overweight Orientation: alert, awake and oriented x3 Lower/Upper Extremity Exam Vascular Exam-Pulses Left Brachial: Pulse Assessment Method: NIBP Objective Meds/Allergies Home Medications atenolol 100 mg tablet 150 mg PO DAILY 06/18/23 [History Confirmed 07/07/23] nifedipine 60 mg tablet,extended release 60 mg PO DAILY 06/18/23 [History Confirmed 07/07/23] omeprazole 20 mg capsule,delayed release 20 mg PO DAILY 06/18/23 [History Confirmed 07/07/23] sertraline 100 mg tablet 100 mg PO DAILY 06/18/23 [History Confirmed 07/07/23] varenicline 1 mg tablet 1 mg PO BID 06/18/23 [History Confirmed 07/07/23] cholestyramine (with sugar) 4 gram oral powder 4 g PO BID 06/22/23 [History Confirmed 07/07/23] clopidogrel 75 mg tablet (Plavix) 75 mg PO DAILY 06/22/23 [History Confirmed 07/07/23] Allergies No Known Allergies Allergy (Verified 06/18/23 05:12) Wound/Ulcer Right Finger - 3rd Digit: Type: inflammatory- raynauds Bed Appearance: Black Dry and [place] Percent of Wound Bed Granulated/Red: 5 Percent of Devitalized: 95 Length (cm): 0.7 Width (cm): 0.4 Depth (cm): 0.1 CM Sq: 0.280 Surrounding Tissue Appearance: Ethnic/Norm Surrounding Tissue Temp: Warm Drainage Amount: Scant Drainage Odor: No Odor Left Finger - 5th Digit: Type: inflammatory- raynauds Bed Appearance: Black Dry Percent of Wound Bed Granulated/Red: 0 Percent of Devitalized: 100 Length (cm): 0.8 Width (cm): 1.2 Depth (cm): 0.1 CM Sq: 0.960 Surrounding Tissue Appearance: Ethnic/Norm Surrounding Tissue Temp: Warm Drainage Amount: Scant Drainage Odor: No Odor Results Height: 6 ft Weight: 90.718 kg Body Mass Index: 27.1 Assessment/Plan Assessment/Plan (1) 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 Code(s): I96 - Gangrene, not elsewhere classified Status: Chronic (2) Raynaud disease: Qualifiers: Raynaud?s-associated gangrene presence: with gangrene Qualified Code(s): I73.01 - Raynaud's syndrome with gangrene Code(s): I73.00 - Raynaud's syndrome without gangrene Status: Chronic (3) Tobacco abuse: Code(s): Z72.0 - Tobacco use Status: Resolved (4) Inflammation: Status: Chronic (5) Buergers disease: Code(s): I73.1 - 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] Status: Chronic (6) Pain: Assessment/Problem Details: fingers/hands Code(s): R52 - Pain, unspecified Status: Chronic Time spent with patient Time Spent With Patient (min): 12 Dictated By: Jennifer Koenig APRN DD/ 0725 Signed By: <Electronically signed by RITU Koenig> 07/07/23 0729 [facility] Work Phone: 1(781) 560-410112-06-2023 NoteI can follow-up with dermatology. Continue best medical therapy. Continue smoking cessation. Continue calcium channel reyes.[facility]12-06-2023 NoteSubjective Patient ID: Bebo Blair is a 47 [...] eventually quit smoking. 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 I discussed with him Betadine painting [...] the past 36 hour(s)). No follow-ups on file.[facility]11-28-2023 Progress note Author Jennifer Koenig [facility] June 22, 2023 8:24am Note Date/Time June 22, 2023 8:11am [facility] [address] [place] [address] Wound Center Provider Note Signed Patient: Ritchie Blair MR#: [id number] : 1975 Acct:[id number] Age/Sex: 47 / M Copies to: DO Jennifer Howard APRN~ HPI Date of Visit Date of Visit: Date of Service: 06/22/2023 Time of Service: 08:07 Narrative HPI: 06/22/23 Ritchie is a 47 year old presenting to [facility] wound care program for an initial visit for eval and treatment of a eschar areas to his fingers that isthe result of his 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 He follows with rheumatology and has been seen by vascular in [place] and he was told that he his blood flow is adequate for healing. We spoke in great detail today about what causes chronic inflammation in the body and what he can do to reduce this inflammation- his orders discussed many option for support of healing such as collagen, vit c, probiotics, and turmeric. He is taking plavix and although the turmeric and plavix can potentiate each other, a low dose of turmeric can be tried to see if this lowers his pain and inflammation. Topical coconut oil will be used for its anti-inflammatory properties as well as to reduce bacteria, viral, and fungal components. This healing process will be slow since this is a chronic condition but if he reduceshis alcohol intake, continues to not use tobacco, continues to avoid processed and sugary foods, and adopts a lower stress lifestyle with more sleep we should have success. 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 Lives with:: Spouse Appetite Description: Within Normal Limits Who helps w/ dressing change?: Self Smoking Status: Former smoker [facility] Medical History (Updated 06/22/23 @ 08:23 by Jennifer Koenig APRN) History of gangrene Hypertension Raynaud disease Surgical History History of cholecystectomy Social History Smoking Status: Former smoker Tobacco Type: cigarettes Substance Use Type: Alcohol (per his statement he says that he drinks too much- he did not give a quantity) Substance Abuse Comment: daily Grafts History of Graft History of Graft?: No Exam Physical Exam Vital Signs: Temp Pulse Resp BP O2 Del Method 98.1 F 80 18 161/95 H Room Air 06/22/23 07:53 06/22/23 07:53 06/22/23 07:53 06/22/23 07:53 06/22/23 07:53 Const General: cooperative, healthy appearing, comfortable, no acute distress and wellgroomed Nutritional Appearance: overweight Orientation: alert, awake and oriented x3 Lower/Upper Extremity Exam Vascular Exam-Pulses Left Brachial: Pulse Assessment Method: NIBP Objective Meds/Allergies Home Medications atenolol 100 mg tablet 100 mg PO DAILY 06/18/23 [History Confirmed 06/22/23] cefdinir 300 mg capsule 300 mg PO BID 06/18/23 [History Confirmed 06/22/23] doxycycline monohydrate 100 mg capsule 100 mg PO BID 06/18/23 [History Confirmed 06/22/23] nifedipine 60 mg tablet,extended release 60 mg PO DAILY 06/18/23 [History Confirmed 06/22/23] omeprazole 20 mg capsule,delayed release 20 mg PO DAILY 06/18/23 [History Confirmed 06/22/23] sertraline 100 mg tablet 100 mg PO DAILY 06/18/23 [History Confirmed 06/22/23] varenicline 1 mg tablet 1 mg PO BID 06/18/23 [History Confirmed 06/22/23] cholestyramine (with sugar) 4 gram oral powder 4 g PO BID 06/22/23 [History Confirmed 06/22/23] clopidogrel 75 mg tablet (Plavix) 75 mg PO DAILY 06/22/23 [History Confirmed 06/22/23] Allergies No Known Allergies Allergy (Verified 06/18/23 05:12) Wound/Ulcer Right Finger - 3rd Digit: Type: inflammatory- raynauds Bed Appearance: Black Dry Percent of Wound Bed Granulated/Red: 0 Percent of Devitalized: 100 Length (cm): 1.0 Width (cm): 0.5 Depth (cm): 0.1 CM Sq: 0.500 Surrounding Tissue Appearance: Ethnic/Norm Surrounding Tissue Temp: Warm Drainage Amount: Scant Drainage Odor: No Odor Left Finger - 5th Digit: Type: inflammatory- raynauds Bed Appearance: Black Dry Percent of Wound Bed Granulated/Red: 0 Percent of Devitalized: 100 Length (cm): 0.8 Width (cm): 1.0 Depth (cm): 0.1 CM Sq: 0.800 Surrounding Tissue Appearance: Ethnic/Norm Surrounding Tissue Temp: Warm Drainage Amount: Scant Drainage Odor: No Odor Results Height: 6 ft Weight: 90.718 kg Body Mass Index: 27.1 Assessment/Plan Assessment/Plan (1) 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 Code(s): I96 - Gangrene, not elsewhere classified Status: Chronic (2) Raynaud disease: Qualifiers: Raynaud?s-associated gangrene presence: with gangrene Qualified Code(s): I73.01 - Raynaud's syndrome with gangrene Code(s): I73.00 - Raynaud's syndrome without gangrene Status: Chronic (3) Tobacco abuse: Code(s): Z72.0 - Tobacco use Status: Chronic (4) Inflammation: Status: Chronic (5) Buergers disease: Code(s): I73.1 - 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] Status: Chronic Time spent with patient Time Spent With Patient (min): 22 Dictated By: Jennifer Koenig APRN DD/ Signed By: <Electronically signed by RITU Koenig> 06/22/2324 [facility] Work Phone: 1(852) 215-524211-25-2023 [facility] Subjective [...] 0-28 Units/kg/hr, Last Rate: 15 Units/kg/hr (06/19/23 0747) Imaging: [facility] US carlos vasospasms/raynauds bilateral Narrative: Procedure: The [...] consider admission for flolan infusion Patient seeing [place] rheumatology but has not followed up in a few months. He would prefer to stay in [place]. Advised him to call to set up appointment [facility]IBRAN. [facility]11-06-2023 Evaluation note* Encounter Date Diagnosis Assessment Notes Treatment Notes Treatment Clinical Notes May, Chronic obstructive pulmonary disease, unspecified COPD type (ICD-10 - J44.9) May, Lung nodule (ICD-10 - R91.1) We will continue to follow-up on the lung nodule with a [address], and see him for follow-up after that May, 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) May, Tobacco use disorder (ICD-10 - F17.200) [facility] Other 08-28-2023 Evaluation note* Encounter Date Diagnosis Assessment Notes Treatment Notes Treatment Clinical Notes Feb, Chronic obstructive pulmonary disease, unspecified COPD type (ICD-10 - J44.9) Feb, Lung nodule (ICD-10 - R91.1) Feb, 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) Feb, Tobacco use disorder (ICD-10 - F17.200) [facility] Other Evaluation noteNo assessment information available [facility] Work Phone: Evaluation note* Diagnosis Onset Date Resolution Status Buergers disease chronic Dry gangrene chronic Inflammation chronic Pain chronic Raynaud disease chronic Tobacco abuse resolved [facility] Work Phone: Evaluation note* Diagnosis Onset Date Resolution Status Autoimmune disorder acute Tobacco abuse acute Buergers disease chronic Dry gangrene chronic Inflammation chronic [facility] Work Phone: Evaluation note* Diagnosis Onset Date Resolution Status Buergers disease chronic Calcified lymph nodes acute Centrilobular emphysema acut e Cigarette nicotine dependenc e with nicotine-induced disorder acute 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 acute Pulmonary cavitary lesion ac [place] Raynaud's disease with gangrene acute [facility] Work Phone: Evaluation note* Diagnosis Onset Date Resolution Status Calcified lymph nodes acute Centrilobular emphysema acut e Cigarette nicotine dependenc e with nicotine-induced disorder acute CREST syndrome acute Diastolic dysfunction acute Other secondary pulmonary hypertension acute Pulmonary cavitary lesion ac [place] Raynaud's disease with gangrene acute [facility] Work Phone: Evaluation note* Diagnosis Onset Date Resolution Status Calcified lymph nodes acute Centrilobular emphysema acut e Cigarette nicotine dependenc e with nicotine-induced disorder acute CREST syndrome acute Diastolic dysfunction acute Other secondary pulmonary hypertension acute Pulmonary cavitary lesion ac [place] Raynaud's disease with gangrene acute Calcified lymph nodes acute Centrilobular emphysema acut e Cigarette nicotine dependenc e with nicotine-induced disorder acute CREST syndrome acute Diastolic dysfunction acute Other secondary pulmonary hypertension acute Pulmonary cavitary lesion ac [place] Raynaud's disease with gangrene acute [facility] Work Phone: Hisvkma general Narrative - Reported* Type Description Date Medical History hypertension Medical History Esophageal reflux Surgical History cholecystectomy [employer] Other Summary Purpose Family History No Family History Records Found Relationship Condition Age at Onset Recorded Date/T vida father History of stroke Unknown Unknown Advance Directives No Advanced Directives Records Found Advance Directive Response Recorded Date/ Time Advance Directives No November 25, 2022 11:23am Advance Directive Response Recorded Date/ Time Advance Directives No November 25, 2022 10:23am Advance Directive Response Recorded Date/ Time Advance Directives No February 23 9:11am Chief Complaint and Reason for Visit Chief Complaint r91.1 Chief Complaint r91.1 Bilat Hand Infections Chief Complaint r91.1 Bilat Hand Infections Open Wound J84.10 I27.0 M35.9 Reason for Visit Buergers disease Dry gangrene Inflammation Pain Raynaud disease Tobacco abuse Chief Complaint Open Wound Reason for Visit Autoimmune disorder Tobacco abuse Buergers disease Dry gangrene Inflammation Chief Complaint Open Wound MARCELO: Sooner appt per Dr. Coronado's request Reason for Visit Buergers disease Calcified lymph nodes Centrilobular emphysema Cigarette nicotine dependence with nicotine-induced disorder CREST syndrome Other secondary pulmonary hypertension Pulmonary cavitary lesion Raynaud's disease with gangrene Chief Complaint MARCELO: Sooner appt per Dr. Coronado's request I27.29 M34.1 I27.29 M34.1 Reason for Visit Calcified lymph node s Centrilobular emphysema Cigarette nicotine dependence with nicotine-induced disorder CREST syndrome Diastolic dysfunction Other secondary pulmonary hypertension Pulmonary cavitary lesion Raynaud's disease with gangrene Chief Complaint MARCELO: Sooner appt per Dr. Coronado's request I27.29 M34.1 I27.29 M34.1 ORDER PLANNER: 2 mo f/u Pulm HTN Reason for Visit Calcified lymph node s Centrilobular emphysema Cigarette nicotine dependence with nicotine-induced disorder CREST syndrome Diastolic dysfunction Other secondary pulmonary hypertension Pulmonary cavitary lesion Raynaud's disease with gangrene Calcified lymph nodes Centrilobular emphysema Cigarette nicotine dependence with nicotine-induced disorder CREST syndrome Diastolic dysfunction Other secondary pulmonary hypertension Pulmonary cavitary lesion Raynaud's disease with gangrene Chief Complaint ORDER PLANNER: 2 mo f/u Pulm H [place] R91.1 Reason for Visit Calcified lymph node s Centrilobular emphysema Cigarette nicotine dependence with nicotine-induced disorder CREST syndrome Diastolic dysfunction Other secondary pulmonary hypertension Pulmonary cavitary lesion Raynaud's disease with gangrene Additional Source Comments (unrecognized sect ion and content) No Status Records FoundNo Status Records FoundNo Status Records FoundNo Status Records Found INFORMATION SOURCE (unrecogn ized section and content) DATE CREATED AUTHOR 10/19/2022 [facility] DATE CREATED AUTHOR AUTHOR'S ORGANIZ ATION 01/05/2023 [facility] DATE CREATED AUTHOR AUTHOR'S ORGANIZ ATION 04/30/2024 [facility] DATE CREATED AUTHOR AUTHOR'S ORGANIZ ATION 05/19/2024 [facility] Care Teams (unrecognized sec tion and content) Team Status: Inactive Member Role Status Dates Johnny Coronado MD Attending Provider Active Team Status: Active Member Role Status Dates Keagan Oro DO Primary Care Provider Active Team Status: Inactive Member Role Status Dates Tony Lieberman MD Attending Provider Active Keagan Oro DO Primary Care Provider Active Team Status: Active Member Role Status Dates Agustina Andrews PHARMACY RETAIL SUPPORT SPECIALIST-C Primary Care Provider Active Team Status: Inactive Member Role Status Dates Agustina Andrews , PHARMACY RETAIL SUPPORT SPECIALIST-C Primary Care Provider Active Bryon Moffett DO Emergency Provider Active Team Status: Active Member Role Status Dates Keagan Oro DO Primary Care Provider Active Jennifer Koenig APRN Attending Provider Active Team Status: Inactive Member Role Status Dates Agustina Andrews PHARMACY RETAIL SUPPORT SPECIALIST-C Primary Care Provider Active Williams Coronado MD Attending Provider Active Team Status: Inactive Member Role Status Dates Keagan Oro DO Primary Care Provider Active Start: October 19, 2023 End: October 19, 2023 Jennifer Koenig APRN Attending Provider Active St art: October 19, 2023 End: October 19, 2023 Team Status: Inactive Member Role Status Dates Agustina Andrews PHARMACY RETAIL SUPPORT SPECIALIST-C Primary Care Provider Active Start: December 23, 2023 End: December 23, 2023 Enrico Mc DO Attending Provider Active St art: December 23, 2023 End: December 23, 2023 Team Status: Inactive Member Role Status Dates Agustina Andrews , PHARMACY RETAIL SUPPORT SPECIALIST-C Primary Care Provider Active Start: January 17, 2024 End: January 17, 2024 Enrico Mc DO Attending Provider Active St art: January 17, 2024 End: January 17, 2024 Team Status: Active Member Role Status Dates Agustina Andrews , PHARMACY RETAIL SUPPORT SPECIALIST-C Primary Care Provider Active Start: January 17, 2024 Enrico Mc DO Other Provider Active Start: January 17, 2024 Efren Esteves MD Attending Provider Active Start: January 17, 2024 Team Status: Inactive Member Role Status Dates Agustina Andrews PHARMACY RETAIL SUPPORT SPECIALIST-C Primary Care Provider Active Start: February 24, 2024 End: February 24, 2024 Enrico Mc DO Attending Provider Active St art: February 24, 2024 End: February 24, 2024 Team Status: Inactive Member Role Status Dates Agustina Andrews , PHARMACY RETAIL SUPPORT SPECIALIST-C Primary Care Provider Active Start: April 28, 2024 End: April 28, 2024 Efren Esteves MD Attending Provider Active Start: April 28, 2024 End: April 28, 2024 Goals (unrecognized section and content) Goals may be documented in a n alternate sectionNo InformationGoals may be documented in an alternate sectionNo InformationGoals may be documented in an alternate sectionGoals may be documented in an alternate sectionGoals may be documented in an alternate sectionGoals may be documented in an alternate sectionGoals may be documented in an alternate sectionGoals may be documented in an alternate sectionGoals [...] BE BASED ON THE PRIMARY CLINICAL RECORDS. [employer] [facility]. provides no warranty or guarantee of the accuracy or completeness of information in this document.
[2024-06-03 09:35] LABS: Basophils Absolute Auto 0.1 10^3/uL (0.0-0.1); Eosinophils Absolute Auto 0.1 10^3/uL (0.0-0.7); Eosinophils Percent Auto 1.3 % (0.9-7.0); Hematocrit 45.9 % (42.0-54.0); Hemoglobin 15.3 g/dL (14.0-18.0); Immature Granulocytes Abs Auto 0.02 10^3/uL (0.00-0.03); Immature Granulocytes Pct Auto 0.3 % (0.0-0.5); Lymphocytes Absolute Auto 1.7 10^3/uL (1.2-3.8); Lymphocytes Percent Auto 24.4 % (20.5-60.0); Mean Corpuscular HGB Conc 33.3 g/dL (29.9-35.2); Mean Corpuscular Hemoglobin 32.9 pg (25.9-34.0); Mean Corpuscular Volume 98.7 fL (80.0-94.0); Mean Platelet Volume 9.7 fL (9.5-13.5); Monocytes Absolute Auto 0.6 10^3/uL (0.3-0.8); Monocytes Percent Auto 8.7 % (1.7-12.0); Neutrophils Absolute Auto 4.6 10^3/uL (1.4-6.5); Neutrophils Percent Auto 64.3 % (43.0-75.0); Platelet Count 221 10^3/uL (150-450); Red Blood Count 4.65 10^6/uL (4.70-6.10); Red Cell Distribution Width 13.6 % (11.0-15.0); White Blood Count 7.1 10^3/uL (4.0-11.0)
[2024-06-03 10:04] LABS: Estimated Average Glucose 108 mg/dL; Glycohemoglobin A1C 5.4 % (4.5-6.2)
[2024-06-03 10:51] LABS: Alanine Aminotransferase 74 U/L (16-63); Albumin Globulin Ratio 0.8; Albumin Level 3.2 g/dL (3.4-5.0); Alkaline Phosphatase 117 U/L (46-116); Anion Gap 17.2; Aspartate Amino Transferase 55 U/L (15-37); BUN Creatinine Ratio 8.7; Bilirubin Total 0.5 mg/dL (0.2-1.0); Calcium 8.5 mg/dL (8.5-10.1); Carbon Dioxide 23.3 mmol/L (21.0-32.0); Chloride 107 mmol/L (98-107); Chol HDL Ratio 3.5; Cholesterol 229 mg/dL (<=200); Estimated GFR (African America >60 (>=60 mL/min/1.73m^2); Estimated GFR (Non-African Ame >60 (>=60 mL/min/1.73m^2); Free T3 2.78 pg/mL (2.18-3.98); Glucose 107 mg/dL (74-106); HDL Cholesterol 66 mg/dL (40-60); Potassium 4.5 mmol/L (3.5-5.1); Sodium 143 mmol/L (136-145); Thyroid Stimulating Hormone 1.104 uIU/mL (0.358-3.740); Total Protein 7.2 g/dL (6.4-8.2); Triglycerides 381 mg/dL (<=150); Uric Acid 9.9 mg/dL (3.5-7.2); VLDL CHOLESTEROL 76.2 mg/dL
[2024-06-05 13:09] LABS: Insulin 7.9 uIU/mL (2.6-24.9)
== END 2024-06-03 08:21 | disposition home or self-care (01) ==
LOC: LAB 08:20
PROVIDERS: PCP Nurse Practitioner Family; Visit Provider Nurse Practitioner Family
DX: Z00.00 Encounter for general adult medical examination without abnormal findings (principal)
CPT/HCPCS: 36415; 80053; 80061; 83036; 83525; 84436; 84443; 84481; 84550; 85025; G0103

== ENCOUNTER 2024-06-08 14:29 | Outpatient (REF) | payer BC, SELFPAY ==
--- OUTSIDE RECORDS SUMMARY | 2024-06-08 14:35 | XMS_ITS | CCD ---
Author Organization [facility] Care Team Providers Care Wood Model Builder Name Role Phone HOUSE, DR CROOKS Consulting [...] Lieberman Unavailable MD Tony Lieberman Attending Provider [phone] DO Keagan Oro Primary Care Provider MD Tony Lieberman Attending Provider DO Keagan Oro Primary Care Provider KAVYA Andrews Primary Care Provider DO Bryon Moffett Emergency Provider RITU Koenig Attending Provider MD Williams Coronado Attending Provider [phone] DO Keagan Oro Primary Care Provider RITU Koenig Attending Provider KAVYA Andrews Primary Care Provider [phone] DO Enrico Mc Attending Provider Jennifer Koenig [...] Unavailable Chaban Kamal Attending Unavailable Keagan Oro [facility] Unavailable CHYNA AndrewsC Agustina Jennings Primary Care Provider MD Efren Esteves Attending Provider HIREN MAYERS Attending Unavailable HIREN MAYERS Referring Unavailable CHOLO ANDERSON Referring Unavailable RBYON MOFFETT Referring Unavailable HIREN MAYERS Admitting Unavailable [...] to schedule 1 year follow up. Normal [facility] CT chest wo con 04-28-2024 CT chest wo [facility] [place] [address] CT Scan Report Signed Patient: Ritchie Blair MR#: [id number] [id number] : 1975 Acct:[id number] Age/Sex: 48 / M ADM Date: 04/28/24 Loc: CT Room: Type: [facility] Attending Dr: Efren Esteves MD Copies to: [...] Rios Jr., D.O.04/28/2024 9:10 AM Dictation Location: [place] [address] Transcribed By: [facility] 04/28/24909 Dictated By: Feliciano Rios Jr, DO 04/28/24906 Signed By: 04/28/24 09 Normal [facility] ECH echo transthoracicon [facility] echo transthoracic [facility] Main [place] [address] [place] [address] Echocardiogram Signed Patient: Ritchie Blair MR#: [id number] : 1975 Acct:[id number] Age/Sex: 48 / M ADM Date: 01/17/24 Loc: Room: Type: [facility] Attending Dr: Enrico Mc DO Ordering Provider: Enrico Mc DO Date of Service: 01/17/24 ECH/[facility] echo transthoracic: I27.29 - Other secondary pulmonary [...] FS: 37.7 % Ao root area: 7.2 ef2UUDk ap4: 8.1 cm TAPSE: 3.0 cm EDV(Teich): [...] Micheal Ratliff MD 01/17/24 1356 Normal [facility] echo transthoracicon [facility] echo transthoracic [facility] [place] [address] Echocardiogram Signed Patient: Ritchie Blair MR#: [id number] : 1975 Acct:[id number] Age/Sex: 47 / M ADM Date: 07/22/23 Loc: RT Room: Type: [facility] Attending Dr: Williams Coronado MD Ordering Provider: [...] Signed By: Dat Knox MD 07/22/23 1842 [facility] Follow-Upon 06-30-2023 Follow-Up [id number] Jair Blair 1975 M Date Provider Department Center 06/30/2023 384-HIREN MAYERS HVCVASENDO [facility] No family history on file Level of Service:56330 AL OFFICE/OUTPATIENT ESTABLISHED MOD MDM 30-39 MIN Reason for Visit and Comments: Hospital Follow-up [832] - Raynaud's with finger gangrene. [facility] 30on 06-19-2023 30 The patient is Moder ately Stable - Low risk of patient condition declining or worsening The patient's goals for the shift include rest The clinical goals for the shift include VSS, pain control Over the shift, the patient did make progress toward the following goals. [facility] 30 Problem: Chronic Conditions and Co-morbidities Goal: Patient's chronic conditions and co-morbidity symptoms are monitored and maintained or improved Outcome: Progressing The patient is Moderately Stable - Low risk of patient condition declining or worsening The patient's goals for the shift include comfort/rest The clinical goals for the shift include VSS/Comfort Wounds remain dry and painful. Independent with care. Vasular as primary. [facility] ANTI-XA (HEPARIN LEVEL)on HEPARIN UNFRACTIONATED (U/ML) IN PPP BY CHROMOGENIC METHOD 0.18 IU/mL Low 0.3-0.7 [facility] Comment on above: Result Comment: [place] roxaban and Apixaban will interfere with the anti Xa assay used to monitor UFH and LMWH. Performed By: #### L [id number] #### [facility] ([facility]) [address] [place] [address] HEPARIN UNFRACTIONATED (U/ML) IN PPP BY CHROMOGENIC METHOD 0.30 IU/mL Normal 0.3-0.7 [facility] Comment on above: Result Comment: [place] roxaban and Apixaban will interfere with the anti Xa assay used to monitor UFH and LMWH. Performed By: #### L [id number] #### [facility] ([facility]) [address] [place] [address] BASIC METABOLIC PANELon 05-27 Anion gap [Moles/Vol] 10 mmol/L Normal 7-20 [facility] Comment on above: Performed By: #### L [id number] #### [facility] ([facility]) [address] [place] [address] Calcium [Mass/Vol] 8.8 mg/dL Normal 8.6-10.3 [facility] Comment on above: Performed By: #### L [id number] #### [facility] ([facility]) [address] [place] [address] Chloride [Moles/Vol] 107 mmol/L Normal 98-107 [facility] Comment on above: Performed By: #### L [id number] #### [facility] ([facility] [address] [place] [address] CO2 [Moles/Vol] 24 mmol/L Normal 21-31 [facility] Comment on above: Performed By: #### L [id number] #### [facility] ([facility] [address] [place] [address] Creatinine [Mass/Vol] 0.86 mg/dL Normal 0.70-1.30 [facility] Comment on above: Performed By: #### L [id number] #### [facility] ([facility]) [address] [place] [address] GLOMERULAR FILTRATION RATE ML/MIN/1.73 SQ M.PREDICTED 106.1 mL/min/1.73m*2 Normal >60.0 [facility] Comment on above: Result Comment: [facility]???s estimated glomerular filtration rate (eGFR) will [...] individuals. Performed By: #### L [id number] #### [facility] ([facility]) [address] [place] [address] Glucose [Mass/Vol] 109 mg/dL High 70-100 [facility] Comment on above: Performed By: #### L [id number] #### [facility] ([facility]) [address] [place] [address] Potassium [Moles/Vol] 4.4 mmol/L Normal 3.5-5.1 [facility] Comment on above: Performed By: #### L [id number] #### [facility] ([facility]) [address] [place] [address] Sodium [Moles/Vol] 137 mmol/L Normal 136-145 [facility] Comment on above: Performed By: #### L [id number] #### [facility] ([facility]) [address] [facility] [address] Urea nitrogen [Mass/Vol] 13 mg/dL Normal 7-25 [facility] Comment on above: Performed By: #### L [id number] #### [facility] ([facility]) [address] [place] [address] UREA NITROGEN/CREATININE (MASS RATIO) IN SER/PLAS 15.1 Normal [facility] Comment on above: Performed By: #### L [id number] #### [facility] ([facility]) [address] [place] [address] CBCon 06-19-2023 Erythrocyte distribution width (RBC) [Ratio] 13.8 % Normal 11.5-15.0 [facility] Comment on above: Performed By: #### L [id number] #### [facility] ([facility]) [address] [place] [address] ERYTHROCYTE MEAN CORPUSCULAR HEMOGLOBIN CONCENTRATION (G/DL) BY AUTOMATED 34.6 g/dL Normal 32.0-35.0 [facility] Comment on above: Performed By: #### L [id number] #### [facility] ([facility]) [address] [facility] [place] [address] Hematocrit (Bld) [Volume fraction] 40.5 % Normal 39.0-55.0 [facility] Comment on above: Performed By: #### L [id number] #### [facility] ([facility]) [address] [place] [address] Hemoglobin (Bld) [Mass/Vol] 14.0 g/dL Normal 13.0-17.0 [facility] Comment on above: Performed By: #### L [id number] #### [facility] ([facility]) [address] [place] [address] MCH (RBC) [Entitic mass] 33.9 pg High 27.0-33.0 [facility] Comment on above: Performed By: #### L [id number] #### [facility] ([facility]) [address] [place] [address] MCV (RBC) [Entitic vol] 98.1 fL High 82.0-98.0 [facility] Comment on above: Performed By: #### L [id number] #### [facility] ([facility]) [address] [place] [address] PLATELETS (10*3/UL) IN BLOOD AUTOMATED COUNT 261 10*3/uL Normal 150-400 [facility] Comment on above: Performed By: #### L [id number] #### [facility] ([facility]) [address] [place] [address] RBC (Bld) [#/Vol] 4.13 10*6/uL Low 4.20-5.70 [facility] Comment on above: Performed By: #### L [id number] #### [facility] ([facility]) [address] [place] [address] WBC (Bld) [#/Vol] 7.07 10*3/uL Normal 4.00-10.60 [facility] Comment on above: Performed By: #### L [id number] #### [facility] ([facility]) [address] [facility] [address] DSon 06-19-2023 DS Admission Admitted 06/18/2023 for [...] Your Medications These medications were sent to [facility]/pharmacy #[id number] - [place], [place] - [address] [facility] [address], [place] [address] aspirin 81 mg EC tablet atorvastatin 40 [...] In process Rheumatoid factor In process Normal [facility] 30on 06-18-2023 30 The patient is [...] i.e., indwelling lines, tubes and drains Normal [facility] ANAon 06-18-2023 ANASTASIIA PATTERN Homogenous and speckled Normal [facility] Comment on above: Performed By: #### L [id number] #### [facility] ([facility]) [address] [place] [address] ANASTASIIA TITER 1:640 High <=1:40 [facility] Comment on above: Result Comment: Test performed using ARLINE IFA ANASTASIIA Hep-2 Test, a pre-standardized assay designed for the qualitative and semi-quantitative detection of antinuclear antibodies. Performed By: #### L [id number] #### [facility] ([facility]) [address] [place] [address] ANTI-XA (HEPARIN LEVEL)on HEPARIN UNFRACTIONATED (U/ML) IN PPP BY CHROMOGENIC METHOD 0.41 IU/mL Normal 0.3-0.7 [facility] Comment on above: Result Comment: [place] roxaban and Apixaban will interfere with the anti Xa assay used to monitor UFH and LMWH. Performed By: #### L [id number] #### [facility] ([facility]) [address] [place] [address] HEPARIN UNFRACTIONATED (U/ML) IN PPP BY CHROMOGENIC METHOD >1.00 Critically high 0.3-0.7 [facility] Comment on above: Order Comment: Anti- Xa heparin level added per protocol. Actual Anti-Xa heparin level for pharmacy use = 1.46 international {unit/units:[id number]} /mL Result Comment: [place] roxaban and Apixaban will interfere with the anti Xa assay used to monitor UFH and LMWH. Performed By: #### L [id number] #### [facility] ([facility]) [address] [place] [address] APTTon 06-18-2023 ACTIVATED PARTIAL THROMBOPLASTIN TIME IN PPP BY COAGULATION ASSAY >200.0 Critically high 25.0-35.0 [facility] Comment on above: Order Comment: Basel ine aPTT before initiating heparin infusion. Result Comment: Clin ical significance of the APTT is questionable in the presence of heparin. Performed By: #### L [id number] #### [facility] ([facility]) [address] [place] [address] Activated partial thrombopla stin time (aPTT) in platelet poor plasma by coagulation aOrdered By: Williams Krause on 06-18-2023 aPTT Coag (PPP) [Time] 28.0 s 25.1-36.5 [facility] Comment on above: A hematocrit value g reater than 55% may lead to inaccurate results in coagulation testing. Patients having hematocrit values >55% require a special collection tube for coagulation studies. Please contact the laboratory at [phone] for redraw instructions. Automated basophil %Ordered By: Williams Krause on 06-18-2023 Basophils/100 WBC (Bld) 1.3 % Normal . [facility] Comment on above: Performed By: #### P T, PTT, CBC, BMP #### [facility] [address] [place] [address] Automated basophil countOrde red By: Williams Krause on 06-18-2023 Basophils (Bld) [#/Vol] 0.1 10*3/uL Normal 0.0-0.2 [facility] Comment on above: Result Comment: PERF ORMED BY: [place] [address] PATHOLOGIST STUDY SPECIALIST SYMONE MACHADO M.D. Performed By: #### P T, PTT, CBC, BMP #### [address] Automated blood monocyte cou ntOrdered By: Williams Krause on 06-18-2023 Monocytes (Bld) [#/Vol] 0.7 10*3/uL Normal 0.0-0.8 [facility] Comment on above: Performed By: #### P T, PTT, CBC, BMP #### [address] Automated eosinophil %Ordere d By: Williams Krause on 06-18-2023 Eosinophils/100 WBC (Bld) 1.0 % Normal . [facility] Comment on above: Performed By: #### P T, PTT, CBC, BMP #### [address] Automated eosinophil countOr dered By: Williams Krause on 06-18-2023 Eosinophils (Bld) [#/Vol] 0.1 10*3/uL Normal 0.0-0.45 [facility] Comment on above: Performed By: #### P T, PTT, CBC, BMP #### [address] Automated monocyte %Ordered By: Williams Krause on 06-18-2023 Monocytes/100 WBC (Bld) 10.5 % Normal . [facility] Comment on above: Performed By: #### P T, PTT, CBC, BMP #### [address] Automated neutrophil %Ordere d By: Williams Krause on 06-18-2023 Neutrophils/100 WBC (Bld) 53.3 % Normal . [facility] Comment on above: Performed By: #### P T, PTT, CBC, BMP #### [address] Basic Metabolic Panelon 05-27 Anion gap [Moles/Vol] Not performed Normal 6.0-15.0 [facility] Comment on above: Performed By: #### P T, PTT, CBC, BMP #### [address] Creatinine Clr Calc Pharmacy 104.34 Normal [facility] Comment on above: Result Comment: PERF ORMED BY: [place] [address] PATHOLOGIST STUDY SPECIALIST SYMONE MACHADO M.D. Performed By: #### P T, PTT, CBC, BMP #### [address] GFR/1.73 sq M.predicted MDRD (S/P/Bld) [Vol rate/Area] mL/min/{1.73_m2} Normal [facility] Comment on above: Performed By: #### P T, PTT, CBC, BMP #### [address] Potassium Normal 3.5-5.1 [facility] Comment on above: Result Comment: Spec imen hemolyzed, redraw requested Results called at 0628 on 06/18/23 Performed By: #### P T, PTT, CBC, BMP #### [address] C reactive protein [Mass/vol ume] in Serum or PlasmaOrdered By: Williams Krause on 06-18-2023 CRP [Mass/Vol] < 0.5 mg/dL 0.0-0.5 [facility] C-REACTIVE PROTEINon 023 C REACTIVE PROTEIN (MG/L) IN SER/PLAS <0.1 Normal 0.0-7.0 [facility] Comment on above: Performed By: #### L [id number] #### [facility] ([facility]) [address] [place] [address] C-Reactive Proteinon 023 CRP [Mass/Vol] mg/L Normal 0.0-0.5 [facility] Comment on above: Result Comment: PERF ORMED BY: [place] [address] PATHOLOGIST STUDY SPECIALIST SYMONE MACHADO M.D. Performed By: #### E SR, CRP #### [address] CBCon 06-18-2023 Erythrocyte distribution width (RBC) [Ratio] 13.7 % Normal 11.5-15.0 [facility] Comment on above: Performed By: #### L [id number] #### [facility] ([facility]) [address] [place] [address] ERYTHROCYTE MEAN CORPUSCULAR HEMOGLOBIN CONCENTRATION (G/DL) BY AUTOMATED 37.4 g/dL High 32.0-35.0 [facility] Comment on above: Performed By: #### L [id number] #### [facility]) [address] [place] [address] Hematocrit (Bld) [Volume fraction] 38.8 % Low 39.0-55.0 [facility] Comment on above: Performed By: #### L [id number] #### [facility] [address] [place] [address] Hemoglobin (Bld) [Mass/Vol] 14.5 g/dL Normal 13.0-17.0 [facility] Comment on above: Performed By: #### L [id number] #### [facility]) [address] [facility] [address] MCH (RBC) [Entitic mass] 35.8 pg High 27.0-33.0 [facility] Comment on above: Performed By: #### L [id number] #### [facility]) [address] [place] [address] MCV (RBC) [Entitic vol] 95.8 fL Normal 82.0-98.0 [facility] Comment on above: Performed By: #### L [id number] #### [facility] ([facility]) [address] [place] [address] PLATELETS (10*3/UL) IN BLOOD AUTOMATED COUNT 279 10*3/uL Normal 150-400 [facility] Comment on above: Performed By: #### L [id number] #### [facility] ([facility]) [address] [place] [address] RBC (Bld) [#/Vol] 4.05 10*6/uL Low 4.20-5.70 [facility] Comment on above: Performed By: #### L [id number] #### [facility] ([facility]) [address] [place] [address] WBC (Bld) [#/Vol] 8.35 10*3/uL Normal 4.00-10.60 [facility] Comment on above: Performed By: #### L [id number] #### [facility] ([facility]) [address] [place] [address] COMPREHENSIVE METABOLIC PANE Angel 06-18-2023 Albumin [Mass/Vol] 3.6 g/dL Normal 3.5-5.7 [facility] Comment on above: Performed By: #### L [id number] #### [facility] ([facility]) [address] [place] [address] ALP [Catalytic activity/Vol] 83 U/L Normal 34-104 [facility] Comment on above: Performed By: #### L [id number] #### [facility] ([facility]) [address] [place] [address] ALT [Catalytic activity/Vol] 28 U/L Normal 7-52 [facility] Comment on above: Performed By: #### L [id number] #### [facility] ([facility]) [address] [place] [address] Anion gap [Moles/Vol] 14 mmol/L Normal 7-20 [facility] Comment on above: Performed By: #### L [id number] #### [facility] ([facility]) [address] [place] [address] AST [Catalytic activity/Vol] 26 U/L Normal 13-39 [facility] Comment on above: Performed By: #### L [id number] #### [facility] ([facility]) [address] [place] [address] Bilirubin [Mass/Vol] 0.3 mg/dL Normal 0.3-1.0 [facility] Comment on above: Performed By: #### L [id number] #### [facility] ([facility]) [address] [place] [address] Calcium [Mass/Vol] 8.7 mg/dL Normal 8.6-10.3 [facility] Comment on above: Performed By: #### L [id number] #### [facility] ([facility]) [address] [place] [address] Chloride [Moles/Vol] 105 mmol/L Normal 98-107 [facility] Comment on above: Performed By: #### L [id number] #### [facility] ([facility]) [address] [place] [address] CO2 [Moles/Vol] 23 mmol/L Normal 21-31 [facility] Comment on above: Performed By: #### L [id number] #### [facility] ([facility]) [address] [place] [address] Creatinine [Mass/Vol] 1.00 mg/dL Normal 0.70-1.30 [facility] Comment on above: Performed By: #### L [id number] #### [facility] ([facility]) [address] [place] [address] GLOMERULAR FILTRATION RATE ML/MIN/1.73 SQ M.PREDICTED 92.3 mL/min/1.73m*2 Normal >60.0 [facility] Comment on above: Result Comment: [facility]???s estimated glomerular filtration rate (eGFR) will [...] individuals. Performed By: #### L [id number] #### [facility] ([facility]) [address] [place] [address] Glucose [Mass/Vol] 104 mg/dL High 70-100 [facility] Comment on above: Performed By: #### L [id number] #### [facility] ([facility]) [address] [place] [address] Potassium [Moles/Vol] 4.7 mmol/L Normal 3.5-5.1 [facility] Comment on above: Performed By: #### L [id number] #### [facility] ([facility]) [address] [place] [address] Protein [Mass/Vol] 6.1 g/dL Normal 6.0-8.3 [facility] Comment on above: Performed By: #### L [id number] #### [facility] [address] [place] [address] Sodium [Moles/Vol] 137 mmol/L Normal 136-145 [facility] Comment on above: Performed By: #### L [id number] #### [facility] ([facility]) [address] [place] [address] Urea nitrogen [Mass/Vol] 21 mg/dL Normal 7-25 [facility] Comment on above: Performed By: #### L [id number] #### [facility] ([facility]) [address] [place] [address] UREA NITROGEN/CREATININE (MASS RATIO) IN SER/PLAS 21.0 Normal [facility] Comment on above: Performed By: #### L [id number] #### [facility]) [address] [place] [address] CTA UPPER EXTREMITY LEFT W A ND/OR [...] reasonably achievable. Electronically signed: Ahsan Birmingham M.D.. [facility] CTA UPPER EXTREMITY RIGHT W AND/OR WO [...] achievable. Electronically signed: Ahsan Birmingham M.D.. Normal [facility] Calcium [Mass/volume] in Ser um or PlasmaOrdered By: Williams Krause on 06-18-2023 Calcium [Mass/Vol] 8.5 mg/dL Low 8.6-10.3 [facility] Comment on above: Performed By: #### P T, PTT, CBC, BMP #### [facility] [address] Carbon dioxide, total [Moles /volume] in Serum or PlasmaOrdered By: Williams Krause on 06-18-2023 CO2 [Moles/Vol] 19.2 mmol/L Low 21.0-31.0 [facility] Comment on above: Performed By: #### P T, PTT, CBC, BMP #### [address] Chloride [Moles/volume] in S akiko or PlasmaOrdered By: Williams Krause on 06-18-2023 Chloride [Moles/Vol] 106 mmol/L Normal 98-107 [facility] Comment on above: Performed By: #### P T, PTT, CBC, BMP #### [address] Complete Blood Count Auto Di ffon 06-18-2023 Mean Corpuscular HGB Conc 34.9 g/dL Normal 32.5-35.6 [facility] Comment on above: Performed By: #### P T, PTT, CBC, BMP #### [address] Monocytes/100 WBC (Bld) 19.18 % Normal 0.00-20.00 [facility] Comment on above: Performed By: #### P T, PTT, CBC, BMP #### [address] NRBC% 0.3 /100{WBC} Normal 0-0.5 [facility] Comment on above: Performed By: #### P T, PTT, CBC, BMP #### [address] Creatinine [Mass/volume] in Serum or PlasmaOrdered By: Williams Krause on 06-18-2023 Creatinine [Mass/Vol] 0.94 mg/dL Normal 0.70-1.30 [facility] Comment on above: Performed By: #### P T, PTT, CBC, BMP #### [address] ECG 12 lead ECGon 06-18-2023 ECG 12 lead ECG [place] [address] [place] [address] Electrocardiograph Report Signed Patient: Ritchie Blair MR#: [id number] : 1975 Acct:[id number] Age/Sex: 47 / M ADM Date: 06/18/23 Loc: ER Room: Type: [facility] ER Attending Dr: Ordering Provider: Williams Krause [...] sinus rhythm Confirmed by Williams Krause DO ([id number]) on 06/18/2023 6:31:26 AM Referred By: Electronically Signed By:Williams Krause DO Transcribed By: MUS Signed By Williams Krause DO 0631 Normal [facility] Erythrocyte Sedimentation Ra nellie 06-18-2023 ESR (Bld) [Velocity] 18 mm/h High 0-14 [facility] Comment on above: Result Comment: PERF ORMED BY: [place] [address] PATHOLOGIST STUDY SPECIALIST SYMONE MACHADO M.D. Performed By: #### P T, PTT, CBC, BMP #### [facility] [address] [place] [address] Erythrocyte distribution wid th [Ratio] by Automated countOrdered By: Williams Krause on 06-18-2023 Erythrocyte distribution width (RBC) [Ratio] 13.2 % Normal 12.0-14.8 [facility] Comment on above: Performed By: #### P T, PTT, CBC, BMP #### [facility] [address] [place] [address] Erythrocyte sedimentation ra te by Photometric methodOrdered By: Williams Krause on 06-18-2023 ESR Photometric method (Bld) [Velocity] 18 mm/hr 0-14 [facility] Erythrocytes [#/volume] in B lood by Automated countOrdered By: Williams Krause on 06-18-2023 RBC (Bld) [#/Vol] 4.26 10*6/uL Normal 3.90-5.60 [facility] Comment on above: Performed By: #### P T, PTT, CBC, BMP #### [facility] [address] [id number] [place] Glucose [Mass/volume] in Ser um or PlasmaOrdered By: Williams Krause on 06-18-2023 Glucose [Mass/Vol] 119 mg/dL High 70-100 [facility] Comment on above: ADA recommended refe rence rangeRandom Glucose Reference Range is dependent on time and content of last meal. Glucose of more than 200 mg/dL in a nonstressed, ambulatory subject supports the diagnosis of Diabetes Mellitus. Result Comment: Norden om Glucose Reference Range is dependent on time and content of last meal. Glucose of more than 200 mg/dL in a nonstressed, ambulatory subject supports the diagnosis of Diabetes Mellitus. ADA recommended reference range Performed By: #### P T, PTT, CBC, BMP #### [facility] [address] [id number] [place] HPon 06-18-2023 HP ------ -- Attestation signed [...] gtt, ASA, CCB, Rhematology work up -- [facility] Vascular Surgery HISTORY & PHYSICAL Reason [...] Normal ra (more content not included)... Normal [facility] Hematocrit [Volume Fraction] of Blood by Automated countOrdered By: Williams Krause on 06-18-2023 Hematocrit (Bld) [Volume fraction] 41.1 % Normal 38.8-50.0 [facility] Comment on above: Performed By: #### P T, PTT, CBC, BMP #### [facility] [address] Hemoglobin [Mass/volume] in BloodOrdered By: Williams Krause on 06-18-2023 Hemoglobin (Bld) [Mass/Vol] 14.3 g/dL Normal 13.0-17.0 [facility] Comment on above: Performed By: #### P T, PTT, CBC, BMP #### [facility] [address] INR in Platelet poor plasma by Coagulation assayOrdered By: Williams Krause on 06-18-2023 INR Coag (PPP) [Relative time] 1.0 {INR} Normal [facility] Comment on above: INR Therapeutic Rang [...] #### P T, PTT, CBC, BMP #### [facility] [address] Leukocytes [#/volume] correc quentin for nucleated erythrocytes in Blood by Automated counOrdered By: Williams Krause on 06-18-2023 WBC corrected for nucl RBC Auto (Bld) [#/Vol] 6.2 10*3/uL 4.1-10.5 [facility] Leukocytes [#/volume] in Blo od by Automated countOrdered By: Williams Krause on 06-18-2023 WBC (Bld) [#/Vol] 6.2 10*3/uL Normal 4.1-10.5 [facility] Comment on above: Performed By: #### P T, PTT, CBC, BMP #### [address] Lymphocytes [#/volume] in Bl ood by Automated countOrdered By: Williams Krause on 06-18-2023 Lymphocytes (Bld) [#/Vol] 2.1 10*3/uL Normal 1.00-4.8 [facility] Comment on above: Performed By: #### P T, PTT, CBC, BMP #### [address] Lymphocytes/100 leukocytes i n Blood by Automated countOrdered By: Williams Krause on 06-18-2023 Lymphocytes/100 WBC (Bld) 33.9 % Normal . [facility] Comment on above: Performed By: #### P T, PTT, CBC, BMP #### [address] MCH [Entitic mass] by Automa quentin countOrdered By: Williams Krause on 06-18-2023 MCH (RBC) [Entitic mass] 33.7 pg Normal 27.5-35.2 [facility] Comment on above: Performed By: #### P T, PTT, CBC, BMP #### [address] MCHC Auto (RBC) [Mass/Vol]Or dered By: Williams Krause on 06-18-2023 MCHC (RBC) [Mass/Vol] 34.9 g/dL 32.5-35.6 [facility] MCV [Entitic volume] by Auto mated countOrdered By: Williams Krause on 06-18-2023 MCV (RBC) [Entitic vol] 96.6 fL Normal 83.5-101 [facility] Comment on above: Performed By: #### P T, PTT, CBC, BMP #### [facility] [address] Monocyte distribution width [Entitic volume] in Blood by AutomatedOrdered By: Williams Krause on 06-18-2023 Monocyte distribution width Auto (Bld) [Entitic vol] 19.18 % 0.00-20.00 [facility] Neutrophils [#/volume] in Bl ood by Automated countOrdered By: Williams Krause on 06-18-2023 Neutrophils (Bld) [#/Vol] 3.3 10*3/uL Normal 1.8-7.7 [facility] Comment on above: Performed By: #### P T, PTT, CBC, BMP #### [facility] [address] [place] [address] No Panel InformationOrdered By: Williams Krause on 06-18-2023 Estimated GFR (CKD-EPI) > 60.0 mL/Min [facility] Creatinine Clearance (Chem 104.34 [facility] Nucleated erythrocytes [Pres ence] in Blood by Automated countOrdered By: Williams Krause on 06-18-2023 Nucleated RBC Auto Ql (Bld) 0.3 /100{WBC} 0-0.5 [facility] Partial Thromboplastin Timeo n 06-18-2023 aPTT Coag (Bld) [Time] 28.0 s Normal 25.1-36.5 [facility] Comment on above: Result Comment: A he matocrit value greater than 55% may lead to inaccurate results in coagulation testing. Patients having hematocrit values >55% require a special collection tube for coagulation studies. Please contact the laboratory at [phone] for redraw instructions. PERFORMED BY: [place] [address] PATHOLOGIST STUDY SPECIALIST SYMONE MACHADO M.D. Performed By: #### P T, PTT, CBC, BMP #### [facility] [address] [place], [place] [id number] [place] Platelet mean volume [Entiti c volume] in Blood by Automated countOrdered By: Williams Krause on 06-18-2023 Platelet mean volume (Bld) [Entitic vol] 7.7 fL Normal 6.6-10.1 [facility] Comment on above: Performed By: #### P T, PTT, CBC, BMP #### [address] Platelets [#/volume] in Bloo d by Automated countOrdered By: Williams Krause on 06-18-2023 Platelets (Bld) [#/Vol] 297 10*3/uL Normal 150-450 [facility] Comment on above: Performed By: #### P T, PTT, CBC, BMP #### [address] Potassium [Moles/volume] in Serum or PlasmaOrdered By: Williams Krause on 06-18-2023 Potassium [Moles/Vol] 4.7 mmol/L Normal 3.5-5.1 [facility] Comment on above: Result Comment: PERF ORMED BY: [place] [address] PATHOLOGIST STUDY SPECIALIST SYMONE MACHADO M.D. Performed By: #### P T, PTT, CBC, BMP #### [address] Prothrombin time (PT)Ordered By: Williams Krause on 06-18-2023 PT Coag (PPP) [Time] 12.2 s Normal 9.0-12.9 [facility] Comment on above: A hematocrit value g reater than 55% may lead to inaccurate results in coagulation testing. Patients having hematocrit values >55% require a special collection tube for coagulation studies. Please contact the laboratory at [phone] for redraw instructions. Result Comment: A he matocrit value greater than 55% may lead to inaccurate results in coagulation testing. Patients having hematocrit values >55% require a special collection tube for coagulation studies. Please contact the laboratory at [phone] for redraw instructions. Performed By: #### P T, PTT, CBC, BMP #### [address] RHEUMATOID FACTORon 06-18-20 Rheumatoid factor Qn [IU]/mL Normal 0-20 [facility] Comment on above: Performed By: #### L [id number] #### [facility] ([facility] [address] [place] [address] SEDIMENTATION RATEon 023 SEDIMENTATION RATE, ERYTHROCYTE 4 mm/hr Normal <=10 [facility] Comment on above: Performed By: #### L [id number] #### [facility] ([facility]) [address] [place] [address] Serum or plasma anion gap de terminationOrdered By: Williams Krause on 06-18-2023 Anion gap [Moles/Vol] TNP [facility] Comment on above: Test not performed Sodium [Moles/volume] in Ser um or PlasmaOrdered By: Williams Krause on 06-18-2023 Sodium [Moles/Vol] 134 mmol/L Low 136-145 [facility] Comment on above: Performed By: #### P T, PTT, CBC, BMP #### [facility] [address] Urea nitrogen [Mass/volume] in Serum or PlasmaOrdered By: Williams Krause on 06-18-2023 Urea nitrogen [Mass/Vol] 22 mg/dL Normal 7-25 [facility] Comment on above: Performed By: #### P T, PTT, CBC, BMP #### [facility] [address] chest wo con high reson 1 CT chest wo con high res [facility] [place] [address] [place] [address] CT Scan Report Signed Patient: Ritchie [place] MR#: [id number] : 1975 Acct:[id number] Age/Sex: 47 / M ADM Date: 05/21/23 Loc: CT Room: Type: [facility] Attending Dr: Tony Lieberman MD Copies to: [...] Rios Jr., D.O.05/21/2023 11:52 AM Dictation Location: [address] [address] Transcribed By: [facility] 05/21/23 1152 Dictated By: Feliciano Rios Jr DO 05/21/23 1138 Signed By: 05/21/23 1152 Normal [facility] Activated partial thrombopla stin time (aPTT) in platelet poor plasma by coagulation aOrdered By: Williams Coronado on 11-24-2022 aPTT Coag (PPP) [Time] 27.6 s 25.1-36.5 [facility] Alanine aminotransferase [En zymatic activity/volume] in Serum or PlasmaOrdered By: Williams Coronado on 11-24-2022 ALT [Catalytic activity/Vol] 34 U/L 7-52 [facility] Albumin [Mass/volume] in Ser um or Plasma by Bromocresol green (BCG) dye binding methoOrdered By: Williams Coronado on 11-24-2022 Albumin BCG dye [Mass/Vol] 4.2 g/dL 3.5-5.7 [facility] Alkaline phosphatase [Enzyma tic activity/volume] in Serum or PlasmaOrdered By: Williams Coronado on 11-24-2022 ALP [Catalytic activity/Vol] 80 U/L 34-104 [facility] Aspartate aminotransferase [ Enzymatic activity/volume] in Serum or PlasmaOrdered By: Williams Coronado on 11-24-2022 AST [Catalytic activity/Vol] 27 U/L 13-39 [facility] Automated erythrocytes count in urine sediment (number/area)Ordered By: Williams Coronado on 11-24-2022 RBC Auto (Urine sed) [#/Area] None seen [HPF] 0-4 [facility] Automated leukocytes count i n urine sediment (number/area)Ordered By: Williams Coronado on 11-24-2022 WBC Auto (Urine sed) [#/Area] None seen [HPF] 0-4 [facility] Basophils Auto (Bld) [#/Vol] Ordered By: Williams Coronado on 11-24-2022 Basophils (Bld) [#/Vol] 0.1 10*3/uL 0.0-0.2 [facility] Basophils/100 WBC Auto (Bld) Ordered By: Williams Coronado on 11-24-2022 Basophils/100 WBC (Bld) 0.6 % . [facility] Bilirubin Test strip Ql (U)O rdered By: Williams Coronado on 11-24-2022 Bilirubin Ql (U) Negative Negative [facility] Bilirubin.total [Mass/volume ] in Serum or PlasmaOrdered By: Williams Coronado on 11-24-2022 Bilirubin [Mass/Vol] 0.4 mg/dL 0.3-1.0 [facility] C reactive protein [Mass/vol ume] in Serum or PlasmaOrdered By: Williams Coronado on 11-24-2022 CRP [Mass/Vol] < 0.5 mg/dL 0.0-0.5 [facility] Calcium [Mass/volume] in Ser um or PlasmaOrdered By: Williams Coronado on 11-24-2022 Calcium [Mass/Vol] 9.0 mg/dL 8.6-10.3 [facility] Carbon dioxide, total [Moles /volume] in Serum or PlasmaOrdered By: Williams Coronado on 11-24-2022 CO2 [Moles/Vol] 25.7 mmol/L 21.0-31.0 [facility] Chloride [Moles/volume] in S akiko or PlasmaOrdered By: Williams Coronado on 11-24-2022 Chloride [Moles/Vol] 103 mmol/L 98-107 [facility] Color Auto (U)Ordered By: Juan R Coronado on 11-24-2022 Color (U) Yellow Yellow [facility] Creatine kinase [Enzymatic a ctivity/volume] in Serum or PlasmaOrdered By: Williams Coronado on 11-24-2022 CK [Catalytic activity/Vol] 92 U/L 30-223 [facility] Creatinine [Mass/volume] in Serum or PlasmaOrdered By: Williams Coronado on 11-24-2022 Creatinine [Mass/Vol] 0.96 mg/dL 0.70-1.30 [facility] Eosinophils Auto (Bld) [#/Vo l]Ordered By: Williams Coronado on 11-24-2022 Eosinophils (Bld) [#/Vol] 0.1 10*3/uL 0.0-0.45 [facility] Eosinophils/100 WBC Auto (Bl d)Ordered By: Williams Coronado on 11-24-2022 Eosinophils/100 WBC (Bld) 1.2 % . [facility] Erythrocyte distribution wid th Auto (RBC) [Ratio]Ordered By: Williams Coronado on 11-24-2022 Erythrocyte distribution width (RBC) [Ratio] 13.9 % 12.0-14.8 [facility] Erythrocyte sedimentation ra te by Photometric methodOrdered By: Williams Coronado on 11-24-2022 ESR Photometric method (Bld) [Velocity] 17 mm/hr 0-14 [facility] Globulin Calc (S) [Mass/Vol] Ordered By: Williams Coronado on 11-24-2022 Globulin (S) [Mass/Vol] 3.0 g/dL [facility] Glucose [Mass/volume] in Ser um or PlasmaOrdered By: Williams Coronado on 11-24-2022 Glucose [Mass/Vol] 80 mg/dL 70-100 [facility] Comment on above: ADA recommended refe rence rangeRandom Glucose Reference Range is dependent on time and content of last meal. Glucose of more than 200 mg/dL in a nonstressed, ambulatory subject supports the diagnosis of Diabetes Mellitus. Hematocrit Auto (Bld) [Volum e fraction]Ordered By: Williams Coronado on 11-24-2022 Hematocrit (Bld) [Volume fraction] 44.2 % 38.8-50.0 [facility] Hemoglobin [Mass/volume] in BloodOrdered By: Williams Coronado on 11-24-2022 Hemoglobin (Bld) [Mass/Vol] 14.9 g/dL 13.0-17.0 [facility] Ketones Auto test strip (U) [Mass/Vol]Ordered By: Williams Coronado on 11-24-2022 Ketones (U) [Mass/Vol] Negative Negative [facility] - CoagulationOrde red By: Williams Coronado on 11-24-2022 PT Coag (PPP) [Time] 10.5 s 9.0-12.9 [facility] - UrinalysisOrder ed By: Williams Coronado on 11-24-2022 Hyaline casts LM Ql (Urine sed) None seen [LPF] 0-8 [facility] Leukocytes [#/volume] correc quentin for nucleated erythrocytes in Blood by Automated counOrdered By: Williams Coronado on 11-24-2022 WBC corrected for nucl RBC Auto (Bld) [#/Vol] 8.5 10*3/uL 4.1-10.5 [facility] Lymphocytes Auto (Bld) [#/Vo l]Ordered By: Williams Coronado on 11-24-2022 Lymphocytes (Bld) [#/Vol] 2.8 10*3/uL 1.00-4.8 [facility] Lymphocytes/100 WBC Auto (Bl d)Ordered By: Williams Coronado on 11-24-2022 Lymphocytes/100 WBC (Bld) 32.7 % . [facility] MCH Auto (RBC) [Entitic mass ]Ordered By: Williams Coronado on 11-24-2022 MCH (RBC) [Entitic mass] 34.0 pg 27.5-35.2 [facility] MCHC Auto (RBC) [Mass/Vol]Or dered By: Williams Coronado on 11-24-2022 MCHC (RBC) [Mass/Vol] 33.6 g/dL 32.5-35.6 [facility] MCV Auto (RBC) [Entitic vol] Ordered By: Williams Coronado on 11-24-2022 MCV (RBC) [Entitic vol] 101.0 fL 83.5-101 [facility] Monocytes Auto (Bld) [#/Vol] Ordered By: Williams Coronado on 11-24-2022 Monocytes (Bld) [#/Vol] 0.9 10*3/uL 0.0-0.8 [facility] Monocytes/100 WBC Auto (Bld) Ordered By: Williams Coronado on 11-24-2022 Monocytes/100 WBC (Bld) 10.1 % . [facility] Neutrophils Auto (Bld) [#/Vo l]Ordered By: Williams Coronado on 11-24-2022 Neutrophils (Bld) [#/Vol] 4.7 10*3/uL 1.8-7.7 [facility] Neutrophils/100 WBC Auto (Bl d)Ordered By: Williams Coronado on 11-24-2022 Neutrophils/100 WBC (Bld) 55.4 % . [facility] Nitrite Test strip Ql (U)Ord ered By: Williams Coronado on 11-24-2022 Nitrite Ql (U) Negative Negative [facility] No Panel InformationOrdered By: Williams Coronado on 11-24-2022 Estimated GFR (CKD-EPI) > 60.0 mL/Min [facility] Creatinine Clearance (Chem N/A [facility] Nucleated erythrocytes [Pres ence] in Blood by Automated countOrdered By: Williams Coronado on 11-24-2022 Nucleated RBC Auto Ql (Bld) 0.1 /100{WBC} 0-0.5 [facility] Platelet mean volume Auto (B ld) [Entitic vol]Ordered By: Williams Coronado on 11-24-2022 Platelet mean volume (Bld) [Entitic vol] 9.0 fL 6.6-10.1 [facility] Platelet poor plasma interna tional normalized ratio (INR) by coagulation assay (relatOrdered By: Williams Coronado on 11-24-2022 INR Coag (PPP) [Relative time] 0.9 {INR} [facility] Comment on above: INR Therapeutic Rang [...] 11-24-2022 Platelets (Bld) [#/Vol] 217 10*3/uL 150-450 [facility] Potassium [Moles/volume] in Serum or PlasmaOrdered By: Williams Coronado on 11-24-2022 Potassium [Moles/Vol] 4.3 mmol/L 3.5-5.1 [facility] Protein Auto test strip (U) [Mass/Vol]Ordered By: Williams Coronado on 11-24-2022 Protein (U) [Mass/Vol] Negative Negative Fi [facility] Protein [Mass/volume] in Ser um or PlasmaOrdered By: Williams Coronado on 11-24-2022 Protein [Mass/Vol] 7.2 g/dL 6.4-8.9 [facility] RBC Auto (Bld) [#/Vol]Ordere d By: Williams Coronado on 11-24-2022 RBC (Bld) [#/Vol] 4.38 10*6/uL 3.90-5.60 [facility] Serum or plasma albumin/glob ulin mass ratioOrdered By: Willaims Coronado on 11-24-2022 Albumin/Globulin [Mass ratio] 1.4 {ratio} [facility] Serum or plasma anion gap de terminationOrdered By: Williams Coronado on 11-24-2022 Anion gap [Moles/Vol] 13.6 mmol/L 6.0-15.0 [facility] Sodium [Moles/volume] in Ser um or PlasmaOrdered By: Williams Coronado on 11-24-2022 Sodium [Moles/Vol] 138 mmol/L 136-145 [facility] Specific gravity Auto test s trip (U) [Rel density]Ordered By: Williams Coronado on 11-24-2022 Specific gravity (U) [Rel density] 1.015 1.001-1.03 0 [facility] Squamous epithelial cells de tection in urine sediment by light microscopyOrdered By: Williams Coronado on 11-24-2022 Epithelial cells.squamous LM Ql (Urine sed) None seen [HPF] 0-2 [facility] Thyrotropin [Units/volume] i n Serum or PlasmaOrdered By: Williams Coronado on 11-24-2022 TSH Qn 2.20 m[IU]/L 0.45-5.33 [facility] Thyroxine (T4) free [Mass/vo lume] in Serum or PlasmaOrdered By: Williams Coronado on 11-24-2022 Free T4 [Mass/Vol] 0.81 ng/dL 0.61-1.12 [facility] Urea nitrogen [Mass/volume] in Serum or PlasmaOrdered By: Williams Coronado on 11-24-2022 Urea nitrogen [Mass/Vol] 13 mg/dL 7-25 [facility] Urine bacteria detection by automated methodOrdered By: Williams Coronado on 11-24-2022 Bacteria Auto Ql (U) None seen None Seen [facility] Urine clarity by refractomet ry automatedOrdered By: Williams Coronado on 11-24-2022 Clarity Refractometry automated (U) Clear Clear [facility] Urine glucose measurement by automated test strip (mass/volume)Ordered By: Williams Coronado on 11-24-2022 Glucose Auto test strip (U) [Mass/Vol] Normal mg/dL Normal [facility] Urine hemoglobin detection b y automated test stripOrdered By: Williams Coronado on 11-24-2022 Hemoglobin Auto test strip Ql (U) Negative Negative [facility] Urine leukocyte esterase det ection by automated test stripOrdered By: Williams Cullenrow on 11-24-2022 Leukocyte esterase Auto test strip Ql (U) Negative Negative [facility] Urobilinogen Auto test strip (U) [Mass/Vol]Ordered By: Williams Ivonne on 11-24-2022 Urobilinogen (U) [Mass/Vol] Normal mg/dL Normal [facility] WBC Auto (Bld) [#/Vol]Ordere d By: Williams Ivonne on 11-24-2022 WBC (Bld) [#/Vol] 8.5 10*3/uL 4.1-10.5 [facility] pH Auto test strip (U)Ordere d By: Williams Ivonne on 11-24-2022 pH (U) 5.5 [pH] 5.0-9.0 [facility] ANASTASIIA by IFAon 10-18-2022 Antinuclear Antibodies, IFA Positive Abnormal [facility] Comment on above: Result Comment: Nega tive <1:80 Borderline 1:80 Positive >1:80 Performed By: #### C VDTBH #### [facility] [address] [address] [address] Kyra Patel Centriole Pattern Normal [facility] Comment on above: Performed By: #### C VDTBH #### [facility] [address] [address] [address] Kyra Patel Centromere Pattern 1:320 Critically high [facility] Comment on above: Result Comment: ICAP nomenclature: AC-3 Performed By: #### C VDTBH #### [facility] [address] [address] [address] Kyra Patel Homogeneous Pattern 1:160 Critically high [facility] Comment on above: Result Comment: ICAP nomenclature: AC-1 Performed By: #### C VDTBH #### [facility] [address] [address] [address] Kyra Patel Midbody Pattern Normal [facility] Comment on above: Performed By: #### C VDTBH #### [facility] [address] [place], [place] [address] Dr. Kyra Patel Note: Comment Normal [facility] Comment on above: Result Comment: For more [...] titers Nucleosomes, Histones Drug-induced SLE Speckled Sm, MACHINE ENGINEER, SCL-70, SLE,MCTD,PSS (diffuse form), SS-A/SS-B Sjogrens Nucleolar SCL-70, PM-1/SCL High titers Scleroderma, PM/DM Centromere Centromere PSS (limited form) w/Crest syndrome variable Nuclear Dot [id number] Primary Biliary Cirrhosis Nuclear GP210, Primary Biliary Cirrhosis Membrane aida A,B,C Performed By: #### C VDTBH #### [facility] [address] [place] [address] Dr. Kyra Patel Nuclear Dot Pattern Normal [facility] Comment on above: Performed By: #### C VDTBH #### [facility] [address] [place] [address] Dr. Kyra Patel Nuclear Membrane Pattern Normal [facility] Comment on above: Performed By: #### C VDTBH #### [facility] [address] [place] [address] Dr. Kyra Patel Nucleolar Pattern Normal [facility] Comment on above: Performed By: #### C VDTBH #### [facility] [address] [place] [address] Dr. Kyra Patel PCNA Pattern Normal [facility] Comment on above: Performed By: #### C VDTBH #### [facility] [address] [place] [address] Dr. Kyra Patel Speckled Pattern Normal [facility] Comment on above: Performed By: #### C VDTBH #### [facility] [address] [place] [address] Dr. Kyra Patel Spindle Apparatus Pattern Normal [facility] Comment on above: Performed By: #### C VDTBH #### [facility] [address] [place] [address] Dr. Kyra Patel RHEUMATOID FACTORon 10-17-19 RA Latex Turbid. 10.2 IU/mL Normal <14.0 [facility] Comment on above: Performed By: #### C VDTBH #### [facility] [address] [place] [address] Dr. Kyra Patel CBC AUTO DIFFon 10-15-2022 BASO # 0.1 103/ul Normal 0.0-0.1 [facility] Comment on above: Performed By: #### C BC #### [facility] [address] [place] [address] Dr. Kyra Patel Basophils/100 WBC (Bld) 0.9 % Normal 0.2-2.0 [facility] Comment on above: Performed By: #### C BC #### [facility] [address] [place] [address] Dr. Kyra Patel EO # 0.1 103/ul Normal 0.0-0.7 [facility] Comment on above: Performed By: #### C BC #### [facility] [address] [place] [address] Dr. Kyra Patel Eosinophils/100 WBC (Bld) 1.4 % Normal 0.9-7.0 [facility] Comment on above: Performed By: #### C BC #### [facility] [address] [place] [address] Dr. Kyra Patel Erythrocyte distribution width (RBC) [Ratio] 14.0 % Normal 11.0-15.0 [facility] Comment on above: Performed By: #### C BC #### [facility] [address] [place] [address] Dr. Kyra Patel Hematocrit (Bld) [Volume fraction] 40.9 % Critically low 42.0-54.0 [facility] Comment on above: Performed By: #### C BC #### [facility] [address] [place] [address] Dr. Kyra Patel Hemoglobin (Bld) [Mass/Vol] 14.2 g/dL Normal 14.0-18.0 [facility] Comment on above: Performed By: #### C BC #### [facility] [address] [place] [address] Dr. Kyra Patel IG # 0.03 10e3/ul Normal 0.00-0.03 [facility] Comment on above: Performed By: #### C BC #### [facility] [address] [place] [address] Dr. Kyra Patel IG % 0.4 % Normal 0.0-0.5 [facility] Comment on above: Performed By: #### C BC #### [facility] [address] [place] [address] Dr. Kyra Patel LYMPH # 2.5 103/ul Normal 1.2-3.8 [facility] Comment on above: Performed By: #### C BC #### [facility] [address] [place] [address] Dr. Kyra Patel Lymphocytes/100 WBC (Bld) 30.8 % Normal 20.5-60.0 [facility] Comment on above: Performed By: #### C BC #### [facility] [address] [place] [address] Dr. Kyra Patel MANUAL DIFF REQ NO Normal [facility] Comment on above: Performed By: #### C BC #### [facility] [address] [place] [address] Dr. Kyra Patel MCH (RBC) [Entitic mass] 34.7 pg Critically high 25.9-34.0 [facility] Comment on above: Performed By: #### C BC #### [facility] [address] [place] [address] Dr. Kyra Patel MCHC (RBC) [Mass/Vol] 34.7 g/dL Normal 29.9-35.2 [facility] Comment on above: Performed By: #### C BC #### [facility] [address] [place] [address] Dr. Kyra Patel MCV (RBC) [Entitic vol] 100.0 fL Critically high 80.0-94.0 [facility] Comment on above: Performed By: #### C BC #### [facility] [address] [place] [address] Dr. Kyra Patel MONO # 0.8 103/ul Normal 0.3-0.8 [facility] Comment on above: Performed By: #### C BC #### [facility] [address] [place] [address] Dr. Kyra Patel Monocytes/100 WBC (Bld) 9.5 % Normal 1.7-12.0 [facility] Comment on above: Performed By: #### C BC #### [facility] [address] [address] [address] Kyra Patel NEUT # 4.6 103/ul Normal 1.4-6.5 [facility] Comment on above: Performed By: #### C BC #### [facility] [address] [place] [address] Dr. Kyra Patel Neutrophils/100 WBC (Bld) 57.0 % Normal 43.0-75.0 [facility] Comment on above: Performed By: #### C BC #### [facility] [address] [place] [address] Dr. Kyra Patel Platelet mean volume (Bld) [Entitic vol] 9.4 fL Critically low 9.5-13.5 [facility] Comment on above: Performed By: #### C BC #### [facility] [address] [place] [address] Dr. Kyra Patel PLT 197 103/ul Normal 150-450 [facility] Comment on above: Performed By: #### C BC #### [facility] [address] [place] [address] Dr. Kyra Patel RBC 4.09 106/ul Critically low 4.70-6.10 [facility] Comment on above: Performed By: #### C BC #### [facility] [address] [place] [address] Dr. Kyra Patel WBC 8.1 103/ul Normal 4.0-11.0 [facility] Comment on above: Performed By: #### C BC #### [facility] [address] [place] [address] Dr. Kyra Patel PROF 14(COMP METB)on 03-23-2 023 Albumin [Mass/Vol] 3.6 g/dL Normal 3.4-5.0 [facility] Comment on above: Performed By: #### C MP, T4, TSH #### [facility] [address] [address] [address] Kyra Patel Albumin/Globulin [Mass ratio] 1.0 {ratio} Normal [facility] Comment on above: Performed By: #### C MP, T4, TSH #### [facility] [address] [address] [address] Kyra Patel ALP [Catalytic activity/Vol] 86 U/L Normal 46-116 [facility] Comment on above: Performed By: #### C MP, T4, TSH #### [facility] [address] [place] [address] Dr. Kyra Patel ALT [Catalytic activity/Vol] 60 U/L Normal 16-63 [facility] Comment on above: Performed By: #### C MP, T4, TSH #### [facility] [address] [address] [address] Kyra Patel Anion gap [Moles/Vol] 15.0 mmol/L Normal [facility] Comment on above: Performed By: #### C MP, T4, TSH #### [facility] [address] [place] [address] Dr. Kyra Patel AST [Catalytic activity/Vol] 44 U/L Critically high 15-37 [facility] Comment on above: Performed By: #### C MP, T4, TSH #### [facility] [address] [address] [address] Kyra Patel Bilirubin [Mass/Vol] 0.4 mg/dL Normal 0.2-1.0 [facility] Comment on above: Performed By: #### C MP, T4, TSH #### [facility] [address] [place] [address] Dr. Kyra Patel Calcium [Mass/Vol] 8.7 mg/dL Normal 8.5-10.1 [facility] Comment on above: Performed By: #### C MP, T4, TSH #### [facility] [address] [place] [address] Dr. Kyra Patel Chloride [Moles/Vol] 103 mmol/L Normal 98-107 [facility] Comment on above: Performed By: #### C MP, T4, TSH #### [facility] [address] [place] [address] Dr. Kyra Patel CO2 [Moles/Vol] 24.2 mmol/L Normal 21.0-32.0 [facility] Comment on above: Performed By: #### C MP, T4, TSH #### [facility] [address] [place] [address] Dr. Kyra Patel Creatinine [Mass/Vol] 0.94 mg/dL Normal 0.70-1.30 [facility] Comment on above: Performed By: #### C MP, T4, TSH #### [facility] [address] [place] [address] Dr. Kyra Patel EGFR-AF [place] >60 Normal >=60 [facility] Comment on above: Performed By: #### C MP, T4, TSH #### [facility] [address] [place] [address] Dr. Kyra Patel EGFR-NON AF [place] >60 Normal >=60 [facility] Comment on above: Performed By: #### C MP, T4, TSH #### [facility] [address] [place] [address] Dr. Kyra Patel Globulin (S) [Mass/Vol] 3.5 g/dL Normal [facility] Comment on above: Performed By: #### C MP, T4, TSH #### [facility] [address] [place] [address] Dr. Kyra Patel Glucose [Mass/Vol] 96 mg/dL Normal 74-106 [facility] Comment on above: Performed By: #### C MP, T4, TSH #### [facility] [address] [place] [address] Dr. Kyra Patel Potassium [Moles/Vol] 4.2 mmol/L Normal 3.5-5.1 [facility] Comment on above: Performed By: #### C MP, T4, TSH #### [facility] [address] [place] [address] Dr. Kyra Patel Protein [Mass/Vol] 7.1 g/dL Normal 6.4-8.2 [facility] Comment on above: Performed By: #### C MP, T4, TSH #### [facility] [address] [place] [address] Dr. Kyra Patel Sodium [Moles/Vol] 138 mmol/L Normal 136-145 [facility] Comment on above: Performed By: #### C MP, T4, TSH #### [facility] [address] [place] [address] Dr. Kyra Patel Urea nitrogen [Mass/Vol] 14.0 mg/dL Normal 7.0-18.0 [facility] Comment on above: Performed By: #### C MP, T4, TSH #### [facility] [address] [place] [address] Dr. Kyra Patel Urea nitrogen/Creatinine [Mass ratio] 14.9 mg/mg Normal [facility] Comment on above: Performed By: #### C MP, T4, TSH #### [facility] [address] [place] [address] Dr. Ky[facility] Pat[facility] mm/hr Normal <=15 [facility] Comment on above: Performed By: #### S EDR #### [facility] [address] [place] [address] Dr. Kyra Patel T4on 10-15-2022 T4 [Mass/Vol] 6.20 ug/dL Normal 4.50-12.10 [facility] Comment on above: Performed By: #### C MP, T4, TSH #### [facility] [address] [place] [address] Dr. Kyra Patel TSHon 10-15-2022 TSH 1.451 uIU/mL Normal 0.358-3.74 0 [facility] Comment on above: Performed By: #### C MP, T4, TSH #### [facility] [address] [place] [address] Dr. Kyra Patel Covid-19 PCR (CVDTB)on 06-25 SARS-CoV-2 (COVID-19) RNA COLBY+probe Ql (Unsp spec) Not detected Normal NOT DETECTED [facility] Comment on above: Result Comment: This test is not yet approved or cleared by the [place] FDA. When there are no FDA-approved or cleared tests available, and other criteria are met, FDA can make tests available under an emergency access mechanism called an Emergency Use Authorization (EUA). The EUA for this test is supported by the [place] of Health and Human Service's (HHS's) declaration [...] consistent with SARS-CoV-2. Performed By: #### [facility] #### [facility] [address] [place] [address] Dr. Kyra Patel Covid-19 PCR ([facility])on 06-25 SARS-CoV-2 (COVID-19) RNA COLBY+probe Ql (Unsp spec) Detected Critically abnormal NOT DETECTED [facility] Comment on above: Result Comment: This test is not yet approved or cleared by the [place] FDA. When there are no FDA-approved or cleared tests available, and other criteria are met, FDA can make tests available under an emergency access mechanism called an Emergency Use Authorization (EUA). The EUA for this test is supported by the [employer] of Health and Human Service's (HHS's) declaration [...] used). Performed By: #### C VDTBH #### [facility] [address] [address] [address] Kyra Patel CBC AUTO DIFFon 01-28-2022 BASO # 0.1 103/ul Normal 0.0-0.1 [facility] Comment on above: Performed By: #### C BC #### [facility] [address] [address] [address] Kyra Patel Basophils/100 WBC (Bld) 0.8 % Normal 0.2-2.0 [facility] Comment on above: Performed By: #### C BC #### [facility] [address] [place] [address] Dr. Kyra Patel EO # 0.2 103/ul Normal 0.0-0.7 [facility] Comment on above: Performed By: #### C BC #### [facility] [address] [place] [address] Dr. Kyra Patel Eosinophils/100 WBC (Bld) 2.1 % Normal 0.9-7.0 [facility] Comment on above: Performed By: #### C BC #### [facility] [address] [place] [address] Dr. Kyra Patel Erythrocyte distribution width (RBC) [Ratio] 13.7 % Normal 11.0-15.0 [facility] Comment on above: Performed By: #### C BC #### [facility] [address] [place] [address] Dr. Kyra Patel Hematocrit (Bld) [Volume fraction] 43.1 % Normal 42.0-54.0 [facility] Comment on above: Performed By: #### C BC #### [facility] [address] [place] [address] Dr. Kyra Patel Hemoglobin (Bld) [Mass/Vol] 14.7 g/dL Normal 14.0-18.0 [facility] Comment on above: Performed By: #### C BC #### [facility] [address] [place] [address] Dr. Kyra Patel IG # 0.05 10e3/ul Critically high 0.00-0.03 [facility] Comment on above: Performed By: #### C BC #### [facility] [address] [place] [address] Dr. Kyra Patel IG % 0.6 % Critically high 0.0-0.5 [facility] Comment on above: Performed By: #### C BC #### [facility] [address] [place] [address] Dr. Kyra Patel LYMPH # 2.4 103/ul Normal 1.2-3.8 [facility] Comment on above: Performed By: #### C BC #### [facility] [address] [place] [address] Dr. Kyra Patel Lymphocytes/100 WBC (Bld) 27.4 % Normal 20.5-60.0 [facility] Comment on above: Performed By: #### C BC #### [facility] [address] [place] [address] Dr. Kyra Patel MANUAL DIFF REQ NO Normal [facility] Comment on above: Performed By: #### C BC #### [facility] [address] [place] [address] Dr. Kyra Patel MCH (RBC) [Entitic mass] 34.0 pg Normal 25.9-34.0 [facility] Comment on above: Performed By: #### C BC #### [facility] [address] [place] [address] Dr. Kyra Patel MCHC (RBC) [Mass/Vol] 34.1 g/dL Normal 29.9-35.2 [facility] Comment on above: Performed By: #### C BC #### [facility] [address] [place] [address] Dr. Kyra Patel MCV (RBC) [Entitic vol] 99.8 fL Critically high 80.0-94.0 [facility] Comment on above: Performed By: #### C BC #### [facility] [address] [place] [address] Dr. Kyra Patel MONO # 0.9 103/ul Critically high 0.3-0.8 [facility] Comment on above: Performed By: #### C BC #### [facility] [address] [address] [address] Kyra Patel Monocytes/100 WBC (Bld) 9.8 % Normal 1.7-12.0 [facility] Comment on above: Performed By: #### C BC #### [facility] [address] [address] [address] Kyra Patel NEUT # 5.3 103/ul Normal 1.4-6.5 [facility] Comment on above: Performed By: #### C BC #### [facility] [address] [address] [address] Kyra Patel Neutrophils/100 WBC (Bld) 59.3 % Normal 43.0-75.0 [facility] Comment on above: Performed By: #### C BC #### [facility] [address] [place] [address] Dr. Kyra Patel Platelet mean volume (Bld) [Entitic vol] 9.8 fL Normal 9.5-13.5 [facility] Comment on above: Performed By: #### C BC #### [facility] [address] [place] [address] Dr. Kyra Patel PLT 195 103/ul Normal 150-450 [facility] Comment on above: Performed By: #### C BC #### [facility] [address] [place] [address] Dr. Kyra Patel RBC 4.32 106/ul Critically low 4.70-6.10 [facility] Comment on above: Performed By: #### C BC #### [facility] [address] [place] [address] Dr. Kyra Patel WBC 8.9 103/ul Normal 4.0-11.0 [facility] Comment on above: Performed By: #### C BC #### [facility] [address] [place] [address] Dr. Kyra Patel DIRECT LDLon 01-28-2022 Cholesterol in LDL [Mass/Vol] 135 mg/dL Normal [facility] Comment on above: Performed By: #### D LDL, CMP, LIPID #### [facility] [address] [address] [address] Kyra Patel DLDL NORMAL SEE BELOW Normal [facility] Comment on above: Result Comment: <100 mg/dl OPTIMAL 100 - 129 mg/dl NEAR OR ABOVE OPTIMAL 130 - 159 mg/dl BORDERLINE HIGH 160 - 189 mg/dl HIGH >190 mg/dl VERY HIGH Performed By: #### D LDL, CMP, LIPID #### [facility] [address] [address] [address] Kyra Patel LIPID PROFILEon 01-28-2022 CHOL-HDL RATIO NORM SEE BELOW Normal [facility] Comment on above: Result Comment: 3.3 - 4.4 LOW RISK 4.4 - 7.1 AVERAGE RISK 7.1 - 11.0 MODERATE RISK >11.0 HIGH RISK Performed By: #### D LDL, CMP, LIPID #### [facility] [address] [address] [address] Kyra Patel Cholesterol [Mass/Vol] 277 mg/dL Critically high <=200 [facility] Comment on above: Performed By: #### D LDL, CMP, LIPID #### [facility] [address] [address] [address] Kyra Patel Cholesterol in HDL [Mass/Vol] 36 mg/dL Critically low 40-60 [facility] Comment on above: Performed By: #### D LDL, CMP, LIPID #### [facility] [address] [id number] [address] Kyra Patel Cholesterol in LDL [Mass/Vol] 81.6 mg/dL Normal [facility] Comment on above: Performed By: #### D LDL, CMP, LIPID #### [facility] [address] [place], [place] [address] Dr. Kyra Patel Cholesterol.total/Chol esterol in HDL [Mass ratio] 7.7 {ratio} Normal [facility] Comment on above: Performed By: #### D LDL, CMP, LIPID #### [facility] [address] [address] [address] Kyra Patel HDL NORMAL > or = 60 mg/dl - LO W CARDIOVASCULAR RISK <40 mg/dl - HIGH CARDIOVASCULAR RISK Normal [facility] Comment on above: Performed By: #### D LDL, CMP, LIPID #### [facility] [address] [address] [address] Kyra Patel LDL CALC NORMAL SEE BELOW Normal [facility] Comment on above: Result Comment: <100 mg/dl OPTIMAL 100 - 129 mg/dl NEAR OR ABOVE OPTIMAL 130 - 159 mg/dl BORDERLINE HIGH 160 - 189 mg/dl HIGH >190 mg/dl VERY HIGH Performed By: #### D LDL, CMP, LIPID #### [facility] [address] [address] [address] Kyra Patel Triglyceride [Mass/Vol] 797 mg/dL Critically high <=150 [facility] Comment on above: Performed By: #### D LDL, CMP, LIPID #### [facility] [address] [address] [address] Kyra Patel VLDL CALC 159.4 mg/dL Normal [facility] Comment on above: Performed By: #### D LDL, CMP, LIPID #### [facility] [address] [address] [address] Kyra Patel PROF 14(COMP METB)on 022 Albumin [Mass/Vol] 3.5 g/dL Normal 3.4-5.0 [facility] Comment on above: Performed By: #### D LDL, CMP, LIPID #### [facility] [address] [address] [address] Kyra Patel Albumin/Globulin [Mass ratio] 0.9 {ratio} Normal [facility] Comment on above: Performed By: #### D LDL, CMP, LIPID #### [facility] [address] [address] [address] Kyra Patel ALP [Catalytic activity/Vol] 78 U/L Normal 46-116 [facility] Comment on above: Performed By: #### D LDL, CMP, LIPID #### [facility] [address] [address] [address] Kyra Patel ALT [Catalytic activity/Vol] 50 U/L Normal 16-63 [facility] Comment on above: Performed By: #### D LDL, CMP, LIPID #### [facility] [address] [address] [address] Kyra Patel Anion gap [Moles/Vol] 13.7 mmol/L Normal Th e [facility] Comment on above: Performed By: #### D LDL, CMP, LIPID #### [facility] [address] [address] [address] Kyra Patel AST [Catalytic activity/Vol] 30 U/L Normal 15-37 [facility] Comment on above: Performed By: #### D LDL, CMP, LIPID #### [facility] [address] [address] [address] Kyra Patel Bilirubin [Mass/Vol] 0.3 mg/dL Normal 0.2-1.0 [facility] Comment on above: Performed By: #### D LDL, CMP, LIPID #### [facility] [address] [place] [address] Dr. Kyra Patel Calcium [Mass/Vol] 8.6 mg/dL Normal 8.5-10.1 [facility] Comment on above: Performed By: #### D LDL, CMP, LIPID #### [facility] [address] [address] [address] Kyra Patel Chloride [Moles/Vol] 104 mmol/L Normal 98-107 [facility] Comment on above: Performed By: #### D LDL, CMP, LIPID #### [facility] [address] [address] [address] Kyra Patel CO2 [Moles/Vol] 23.8 mmol/L Normal 21.0-32.0 [facility] Comment on above: Performed By: #### D LDL, CMP, LIPID #### [facility] [address] [address] [address] Kyra Patel Creatinine [Mass/Vol] 1.02 mg/dL Normal 0.70-1.30 [facility] Comment on above: Performed By: #### D LDL, CMP, LIPID #### [facility] [address] [address] [address] Kyra Patel EGFR-AF [place] >60 Normal >=60 [facility] Comment on above: Performed By: #### D LDL, CMP, LIPID #### [facility] [address] [address] [address] Kyra Patel EGFR-NON AF [place] >60 Normal >=60 [facility] Comment on above: Performed By: #### D LDL, CMP, LIPID #### [facility] [facility] [address] [address] [address] Kyra Patel Globulin (S) [Mass/Vol] 3.7 g/dL Normal [facility] Comment on above: Performed By: #### D LDL, CMP, LIPID #### [facility] [address] [address] [address] Kyra Patel Glucose [Mass/Vol] 113 mg/dL Critically high 74-106 T [facility] Comment on above: Performed By: #### D LDL, CMP, LIPID #### [facility] [address] [address] [address] Kyra Patel Potassium [Moles/Vol] 3.5 mmol/L Normal 3.5-5.1 [facility] Comment on above: Performed By: #### D LDL, CMP, LIPID #### [facility] [address] [address] [address] Kyra Patel Protein [Mass/Vol] 7.2 g/dL Normal 6.4-8.2 [facility] Comment on above: Performed By: #### D LDL, CMP, LIPID #### [facility] [address] [address] [address] Kyra Patel Sodium [Moles/Vol] 138 mmol/L Normal 136-145 [facility] Comment on above: Performed By: #### D LDL, CMP, LIPID #### [facility] [address] [address] [address] Kyra Patel Urea nitrogen [Mass/Vol] 12.0 mg/dL Normal 7.0-18.0 [facility] Comment on above: Performed By: #### D LDL, CMP, LIPID #### [facility] [address] [address] [address] Kyra Patel Urea nitrogen/Creatinine [Mass ratio] 11.8 mg/mg Normal [facility] Comment on above: Performed By: #### D LDL, CMP, LIPID #### [facility] [address] [address] [address] Kyra Patel Vital Signs Date Time Vital Sign Value Performing Clinician Facility 02-24-2024 08:57-0400 Body height 182.88 cm GOLF COURSE ASSISTANT-C Agustina Andrews Work Phone: [facility] 02-24-2024 08:57-0400 Body mass index (BMI) [Ratio] 28.5 kg/m2 GOLF COURSE ASSISTANT-C Agustina Juliana Work Phone: [facility] 02-24-2024 08:57-0400 Body temperature 98.3 [degF] GOLF COURSE ASSISTANT-C Agustinakaren Bermanmer Work Phone: [facility] 02-24-2024 08:57-0400 Body weight 95.25 kg GOLF COURSE ASSISTANT-C Agustina Bermanmer Work Phone: [facility] 02-24-2024 08:57-0400 Diastolic blood pressure 90 mm[Hg] GOLF COURSE ASSISTANT-C Agustina Bermanmer Work Phone: [facility] 02-24-2024 08:57-0400 Heart rate 81 /min GOLF COURSE ASSISTANT-C Agustinakaren Bermanmer Work Phone: [facility] 02-24-2024 08:57-0400 Respiratory rate 20 /min GOLF COURSE ASSISTANT-C Agustina Bermanmer Work Phone: [facility] 02-24-2024 08:57-0400 SaO2% (BldA) [Mass fraction] 97 % GOLF COURSE ASSISTANT-C Agustina Bermanmer Work Phone: [facility] 02-24-2024 08:57-0400 Systolic blood pressure 144 mm[Hg] GOLF COURSE ASSISTANT-C Agustina Juliana Work Phone: [facility] 12-23-2023 08:57-0400 Body height 182.88 cm DO [employer] Work Phone: [facility] 12-23-2023 08:57-0400 Body mass index (BMI) [Ratio] 28.7 kg/m2 DO [employer] Work Phone: [facility] 12-23-2023 08:57-0400 Body temperature 98.6 [degF] DO Keagan House Work Phone: [facility] 12-23-2023 08:57-0400 Body weight 96.16 kg DO Keagan House Work Phone: [facility] 12-23-2023 08:57-0400 Diastolic blood pressure 90 mm[Hg] DO Keagan House Work Phone: [facility] 12-23-2023 08:57-0400 Heart rate 92 /min DO Keagan House Work Phone: [facility] 12-23-2023 08:57-0400 Respiratory rate 20 /min DO Keagan House Work Phone: [facility] 12-23-2023 08:57-0400 SaO2% (BldA) [Mass fraction] 95 % DO Keagan House Work Phone: [facility] 12-23-2023 08:57-0400 Systolic blood pressure 148 mm[Hg] DO Keagan House Work Phone: [facility] 10-19-2023 07:21-0400 Body height 182.88 cm DO Keagan House Work Phone: [facility] 10-19-2023 07:21-0400 Body mass index (BMI) [Ratio] 27.1 kg/m2 DO Keagan House Work Phone: [facility] 10-19-2023 07:21-0400 Body weight 90.71 kg DO Keagan House Work Phone: [facility] 10-19-2023 07:10-0400 Body temperature 97.2 [degF] DO Keagan House Work Phone: [facility] 10-19-2023 07:10-0400 Diastolic blood pressure 84 mm[Hg] DO Keagan House Work Phone: [facility] 10-19-2023 07:10-0400 Heart rate 87 /min DO Keagan House Work Phone: [facility] 10-19-2023 07:10-0400 Respiratory rate 20 /min DO Keagan House Work Phone: [facility] 10-19-2023 07:10-0400 Systolic blood pressure 149 mm[Hg] DO Keagan House Work Phone: [facility] 07-22-2023 07:58-0500 Body height 182.88 cm DO Keagan House Work Phone: [facility] 07-22-2023 07:58-0500 Body mass index (BMI) [Ratio] 27.1 kg/m2 DO Keagan House Work Phone: [facility] 07-22-2023 07:58-0500 Body weight 90.71 kg DO Keagan House Work Phone: [facility] 07-22-2023 07:45-0500 Diastolic blood pressure 81 mm[Hg] DO Keagan House Work Phone: [facility] 07-22-2023 07:45-0500 Heart rate 84 /min DO Keagan House Work Phone: [facility] 07-22-2023 07:45-0500 Respiratory rate 20 /min DO Keagan House Work Phone: [facility] 07-22-2023 07:45-0500 Systolic blood pressure 146 mm[Hg] DO Keagan House Work Phone: [facility] 07-07-2023 07:19-0500 Body temperature 97.8 [degF] DO Keagan House Work Phone: [facility] 06-18-2023 12:47-0500 Diastolic blood pressure 77 mm[Hg] DO Keagan House Work Phone: [facility] 06-18-2023 12:47-0500 Heart rate 78 /min DO Keagan House Work Phone: [facility] 06-18-2023 12:47-0500 Respiratory rate 18 /min DO Keagan House Work Phone: [facility] 06-18-2023 12:47-0500 SaO2% (BldA) [Mass fraction] 98 % DO Keagan House Work Phone: [facility] 06-18-2023 12:47-0500 Systolic blood pressure 131 mm[Hg] DO Keagan House Work Phone: [facility] 06-18-2023 05:13-0500 Body temperature 98 [degF] DO Keagan House Work Phone: [facility] 06-18-2023 05:12-0500 Body height 182.88 cm DO Keagan House Work Phone: [facility] 06-18-2023 05:12-0500 Body weight 90.71 kg DO Keagan House Work Phone: [facility] 05-31-2023 09:45-0500 Body height 182.88 cm Tony Lieberman Other [facility] Other 03-22-2023 10:30-0400 Body height 182.88 cm Tony Lieberman Other [facility] Other 03-22-2023 10:30-0400 Body mass index (BMI) [Ratio] 26.58 kg/m2 Drewrojas Lieberman Other [facility] Other 03-22-2023 10:30-0400 Body temperature 98.2 [degF] oTny Lieberman Other [facility] Other 03-22-2023 10:30-0400 Body weight 88.91 kg Tony Lieberman Other [facility] Other 03-22-2023 10:30-0400 Diastolic blood pressure 72 mm[Hg] Tony Lieberman Other [facility] Other 03-22-2023 10:30-0400 Respiratory rate 20 /min Tony Lieberman Other [facility] Other 03-22-2023 10:30-0400 SaO2% (BldA) [Mass fraction] 96 % Tony Lieberman Other [facility] Other 03-22-2023 10:30-0400 Systolic blood pressure 120 mm[Hg] Tony Lieberman Other [facility] Other Encounters Encounter Date Encounter Type Care Provider Facility Start: 04-28-2024 End: 04-28-2024 Patient encounter procedure GOLF COURSE ASSISTANT-C Agustina Andrews Work Phone: [facility] [place] Work Phone: Start: 04-28-2024 End: 04-28-2024 ambulatory Efren Esteves Facility:[facility] Start: 02-24-2024 End: 02-24-2024 ambulatory GOLF COURSE ASSISTANT-C Agustina Andrews Work Phone: [facility] Work Phone: Start: 02-24-2024 End: 02-24-2024 Patient encounter procedure GOLF COURSE ASSISTANT-C Agustinakaren Andrews Work Phone: [facility] Work Phone: Start: 01-17-2024 Non-patient / Non-visit GOLF COURSE ASSISTANT-C Agustina Andrews Work Phone: [facility] Work Phone: Start: 01-17-2024 End: 01-17-2024 Patient encounter procedure GOLF COURSE ASSISTANT-C Agustinakaren Andrews Work Phone: [facility] Work Phone: Start: 01-17-2024 End: 01-17-2024 ambulatory GOLF COURSE ASSISTANT-C Agustina Michaelaramone Andrews Work Phone: [facility] Work Phone: Start: 12-23-2023 End: 12-23-2023 ambulatory DO Keagan House Work Phone: [facility] Work Phone: Start: 12-23-2023 End: 12-23-2023 Patient encounter procedure DO Keagan House Work Phone: [facility] Work Phone: Start: 10-19-2023 End: 10-19-2023 ambulatory DO Keagan House Work Phone: [facility] Work Phone: Start: 10-19-2023 End: 10-19-2023 Discharged Recurring DO Keagan House Work Phone: [facility] [place] Work Phone: Start: 07-22-2023 End: 07-22-2023 Patient encounter procedure DO Keagan House Work Phone: [facility]Res[facility] Work Phone: Start: 07-22-2023 End: 07-22-2023 ambulatory DO Keagan House Work Phone: [facility] Work Phone: Start: 07-22-2023 Registered Recurring DO Waqar s House Work Phone: [facility] [place] Work Phone: Start: 06-30-2023 ambulatory [facility] Start: 06-19-2023 Evaluation and management of inpatient CHOLO ANDERSON [facility] Start: 06-18-2023 Evaluation and management of inpatient [facility] Start: 06-18-2023 End: 06-19-2023 Evaluation and management of inpatient BRYON MOFFETT [facility] Start: 06-18-2023 End: 06-18-2023 Emergency department patient visit DO Keagan Oro Work Phone: [facility] Work Phone: Start: 05-31-2023 End: 05-31-2023 ambulatory Kamal Chaban Other [facility] Other Start: 05-31-2023 Office outpatient visit 15 minutes Kamal Chaban [facility] Start: 05-21-2023 End: 05-21-2023 Patient encounter procedure DO Keagan Oro Work Phone: [facility] [place] Work Phone: Start: 05-21-2023 End: 05-21-2023 ambulatory DO Keagan Oro Work Phone: [facility] Work Phone: Start: 03-22-2023 End: 03-22-2023 ambulatory Kamal Chaban Other [facility] Other Start: 03-22-2023 Office outpatient ne w 45 minutes Kamal Chaban [facility] Start: 12-10-2022 ambulatory Facility:[id number] Start: 11-24-2022 End: 11-24-2022 ambulatory MD Johnny Coronado Work Phone: [facility] Work Phone: Start: 11-24-2022 End: 11-24-2022 Patient encounter procedure MD Johnny Coronado Work Phone: [facility] [address] Work Phone: Start: 10-18-2022 Encounter for genera l adult medical examination without abnormal findings DR KEAGAN ORO [facility] Start: 10-15-2022 End: 03-24-[address] KEAGAN [...] Start: 04-28-2024 CT of chest without contrast GOLF COURSE ASSISTANT-C Agustina Andrews Work Phone: Start: 05-21-2023 CT of chest without contrast DO Keagan Oro Work Phone: Plan of Treatment Date Care Activity Detail Author Start: 11-24-2022 Hemolytic complement CH50 level [facility] Start: 11-24-2022 [facility] Lupus anticoagulant [Interpretation] in Platelet poor plasma [facility] Patient referral [facility] Work Phone: Thrombin time [facility] US Heart Transthoracic [facility] Payers Date Payer Category Payer Self-pay 1975 Unknown [id number] 2.16.84 [id number] 1975 Unknown [id number] 2.16.84 [id number] 1975 Unknown [id number] 2.16.84 [id number] 1975 Unknown [id number] [id number] 1973 Unknown [id number] 2.16. [id number] 1959 Unknown [id number] Unknown [id number] 2.16.8 [id number] Unknown [id number] 2.16.8 [id number] Unknown [id number] 2.16.8 [id number] Unknown [id number] 2.16.8 [id number] Unknown [id number] 2.16.8 [id number] Unknown [id number] 2.16.8 [id number] Social History Date Type Detail Facility Tobacco smoking status [facility] Unknown if ever smoked [facility] Work Phone: Start: 1975 Sex Assigned At Male F [facility] Sex Assigned At Sex Assigned At Bir th [facility] [employer] Other Start: 06-18-2023 Tobacco smoking status AZIS Smoker (finding) [facility] Start: 07-22-2023 End: 10-19-2023 Tobacco smoking status AZIS Ex-smoker (finding) [facility] Start: 12-23-2023 End: 02-24-2024 Tobacco smoking status [facility] Current some day smoker [facility] Clinical Notes 03-22-2023 to 10-19-2023 Note Date & Type Note Facility 10-19-2023 Progress note Note Date/Time October 19, 2023 7:21am [facility] [address] [place] [address] Wound Center Provider Note Signed Patient: Ritchie Blair MR#: [id number] : 1975 Acct:[id number] Age/Sex: 48 / M Copies to: DO Jennifer Howard APRN~ HPI Date of Visit Date of Visit: Date of Service: 10/19/2023 Time of Service: 07:19 Narrative HPI: 06/22/23 Ritchie is a 47 year old presenting to [facility] wound care program for an initial visit for eval and treatment of a eschar areas to his fingers that isthe result of his 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 vehicle Lives with:: Spouse Appetite Description: Within Normal Limits Who helps w/ dressing change?: Self Smoking Status: Former smoker [facility] Medical History (Updated 08/12/23 @ 07:37 [...] 0.1 CM Sq: 0.240 Surrounding Tissue Appearance: [place] Surrounding Tissue Temp: Warm Drainage Amount: Scant [...] By: <Electronically signed by RITU Koenig> 10/19/2321 [facility] Work Phone: 1(670) 669-265902-29-2024 Progress note Author Jennifer Koenig [facility] September 23, 2023 7:36am Note Date/Time September 23, 2023 7:36am [facility] [address] [place] [address] Wound Center Provider Note Signed Patient: Ritchie Blair MR#: [id number] : 1975 Acct:[id number] Age/Sex: 48 / M Copies to: DO Jennifer Howard APRN~ HPI Date of Visit Date of Visit: Date of Service: 09/23/2023 Time of Service: 07:29 Narrative HPI: 06/22/23 Ritchie is a 47 year old presenting to [facility] wound care program for an initial visit for eval and treatment of a eschar areas to his fingers that isthe result of his 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 vehicle Lives with:: Spouse Appetite Description: Within Normal Limits Who helps w/ dressing change?: Self Smoking Status: Former smoker [facility] Medical History (Updated 08/12/23 @ 07:37 [...] 0.1 CM Sq: 0.960 Surrounding Tissue Appearance: [place] Surrounding Tissue Temp: Warm Drainage Amount: Scant [...] <Electronically signed by RITU Koenig> 09/23/23 0736 [facility] Work Phone: 1(958) 192-332202-08-2024 Progress note Author Jennifer Koenig [facility] September 02, 2023 7:25am Note Date/Time September 02, 2023 7 :25am [facility] [address] [place] [address] Wound Center Provider Note Signed Patient: Ritchie Blair MR#: [id number] : 1975 Acct:[id number] Age/Sex: 48 / M Copies to: DO Jennifer Howard APRN~ HPI Date of Visit Date of Visit: Date of Service: 09/02/2023 Time of Service: 07:20 Narrative HPI: 06/22/23 Ritchie is a 47 year old presenting to [facility] wound care program for an initial visit for eval and treatment of a eschar areas to his fingers that isthe result of his 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 vehicle Lives with:: Spouse Appetite Description: Within Normal Limits Who helps w/ dressing change?: Self Smoking Status: Former smoker [facility] Medical History (Updated 08/12/23 @ 07:37 [...] 3rd Digit: Type: inflammatory- raynauds Bed Appearance: [place] and Yellow Percent of Wound Bed Granulated/Red: [...] 0.1 CM Sq: 0.700 Surrounding Tissue Appearance: [place] Surrounding Tissue Temp: Warm Drainage Amount: Scant [...] By: <Electronically signed by RITU Koenig> 09/02/2325 [facility] Work Phone: 1(407) 352-959301-18-2024 Progress note Author Jennifer Koenig [facility] August 12, 2023 7:37am Note Date/Time August 12, 2023 7 :37am [facility] [address] [place] [address] Wound Center Provider Note Signed Patient: Ritchie Blair MR#: [id number] : 1975 Acct:[id number] Age/Sex: 47 / M Copies to: DO Jennifer Howard APRN~ HPI Date of Visit Date of Visit: Date of Service: 08/12/2023 Time of Service: 07:33 Narrative HPI: 06/22/23 Ritchie is a 47 year old presenting to [facility] wound care program for an initial visit for eval and treatment of a eschar areas to his fingers that isthe result of his 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 vehicle Lives with:: Spouse Appetite Description: Within Normal Limits Who helps w/ dressing change?: Self Smoking Status: Former smoker [facility] Medical History (Updated 08/12/23 @ 07:37 [...] Digit: Type: inflammatory- raynauds Bed Appearance: Brown, [place] and Yellow Percent of Wound Bed Granulated/Red: [...] 0.1 CM Sq: 0.600 Surrounding Tissue Appearance: [place] Surrounding Tissue Temp: Warm Drainage Amount: Scant [...] <Electronically signed by RITU Koenig> 08/12/23 0737 [facility] Work Phone: 1(643) 965-321712-28-2023 Progress note Author Jennifer Koenig [facility] July 22, 2023 7:58am Note Date/Time July 22, 2023 7:58am [facility] [address] [place] [address] Wound Center Provider Note Signed Patient: Ritchie Blair MR#: [id number] : 1975 Acct:[id number] Age/Sex: 47 / M Copies to: DO Jennifer Howard APRN~ HPI Date of Visit Date of Visit: Date of Service: 07/22/2023 Time of Service: 07:55 Narrative HPI: 06/22/23 Ritchie is a 47 year old presenting to [facility] wound care program for an initial visit for eval and treatment of a eschar areas to his fingers that isthe result of his 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 vehicle Lives with:: Spouse Appetite Description: Within Normal Limits Who helps w/ dressing change?: Self Smoking Status: Former smoker [facility] Medical History (Updated 07/07/23 @ 07:29 [...] Digit: Type: inflammatory- raynauds Bed Appearance: Brown, [place] and Yellow Percent of Wound Bed Granulated/Red: [...] <Electronically signed by RITU Koenig> 07/22/23 0758 [facility] Work Phone: 1(193) 145-444412-13-2023 Progress note Author Jennifer Koenig [facility] July 07, 2023 7:29am Note Date/Time July 07, 2023 7:29am [facility] [address] [place] [address] Wound Center Provider Note Signed Patient: Ritchie Blair MR#: [id number] : 1975 Acct:[id number] Age/Sex: 47 / M Copies to: DO Jennifer Howard APRN~ HPI Date of Visit Date of Visit: Date of Service: 07/07/2023 Time of Service: 07:25 Narrative HPI: 06/22/23 Ritchie is a 47 year old presenting to [facility] wound care program for an initial visit for eval and treatment of a eschar areas to his fingers that isthe result of his 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 Continue best medical therapy. Continue smoking cessation. Continue calcium channel reyes.[facility]12-06-2023 NoteSubjective Patient ID: Bebo Blair is a [...] eventually quit smoking. He is seeing his desk officer tomorrow. I discussed with him Betadine painting [...] the past 36 hour(s)). No follow-ups on file.[facility]11-28-2023 Progress note Author Jennifer Koenig [facility] June 22, 2023 8:24am Note Date/Time June 22, 2023 8:11am [facility] [address] [place] [address] Wound Center Provider Note Signed Patient: Ritchie Blair MR#: [id number] : 1975 Acct:[id number] Age/Sex: 47 / M Copies to: DO Jennifer Howard APRN~ HPI Date of Visit Date of Visit: Date of Service: 06/22/2023 Time of Service: 08:07 Narrative HPI: 06/22/23 Ritchie is a 47 year old presenting to [facility] wound care program for an initial visit for eval and treatment of a eschar areas to his fingers that isthe result of his 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 vehicle Lives with:: Spouse Appetite Description: Within Normal Limits Who helps w/ dressing change?: Self Smoking Status: Former smoker [facility] Medical History (Updated 06/22/23 @ 08:23 [...] By: <Electronically signed by RITU Koenig> 06/22/2324 [facility] Work Phone: 1(688) 167-839411-25-20[facility] Subjective Patient [...] Last Rate: 15 Units/kg/hr (06/19/23 0747) Imaging: [facility] US carlos vasospasms/raynauds bilateral Narrative: Procedure: The [...] consider admission for flolan infusion Patient seeing [place] [facility]ology but has not followed up in a few months. He would prefer to stay in [place]. Advised him to call to set up appointment [facility]AN. 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) Feb, Tobacco use disorder (ICD-10 - F17.200) [facility] Other Evaluation noteNo assessment information available [facility] Work Phone: Evaluation note* Diagnosis Onset Date Resolution Status Buergers disease chronic Dry gangrene chronic Inflammation chronic Pain chronic Raynaud disease chronic Tobacco abuse resolved [facility] Work Phone: Evaluation note* Diagnosis Onset Date Resolution Status Autoimmune disorder acute Tobacco abuse acute Buergers disease chronic Dry gangrene chronic Inflammation chronic [facility] Work Phone: Evaluation note* Diagnosis Onset Date Resolution Status Buergers disease chronic Calcified lymph nodes acute Centrilobular emphysema acut e Cigarette nicotine dependenc e with nicotine-induced disorder acute 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 acute Pulmonary cavitary lesion ac [place] Raynaud's disease with gangrene acute [facility] [place] Work Phone: Evaluation note* Diagnosis Onset Date Resolution Status Calcified lymph nodes acute Centrilobular emphysema acut e Cigarette nicotine dependenc e with nicotine-induced disorder acute CREST syndrome acute Diastolic dysfunction acute Other secondary pulmonary hypertension acute Pulmonary cavitary lesion ac [place] Raynaud's disease with gangrene acute [facility] Work Phone: Evaluation note* Diagnosis Onset Date Resolution Status Calcified lymph nodes acute Centrilobular emphysema acut e Cigarette nicotine dependenc e with nicotine-induced disorder acute CREST syndrome acute Diastolic dysfunction acute Other secondary pulmonary hypertension acute Pulmonary cavitary lesion ac [place] Raynaud's disease with gangrene acute Calcified lymph nodes acute Centrilobular emphysema acut e Cigarette nicotine dependenc e with nicotine-induced disorder acute CREST syndrome acute Diastolic dysfunction acute Other secondary pulmonary hypertension acute Pulmonary cavitary lesion ac [place] Raynaud's disease with gangrene acute [facility] [place] Work Phone: Hisooih general Narrative - Reported* Type Description Date Medical History hypertension Medical History Esophageal reflux Surgical History cholecystectomy mPortal Other Summary Purpose Family History No Family [...] Dr. 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 HTN Reason for Visit Calcified lymph node s Centrilobular emphysema Cigarette nicotine dependence with nicotine-induced disorder CREST syndrome Diastolic dysfunction Other secondary pulmonary hypertension Pulmonary cavitary lesion Raynaud's disease with gangrene Calcified lymph nodes Centrilobular emphysema Cigarette nicotine dependence with nicotine-induced disorder CREST syndrome Diastolic dysfunction Other secondary pulmonary hypertension Pulmonary cavitary lesion Raynaud's disease with gangrene Chief Complaint 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 H [place] R91.1 [...] DATE CREATED AUTHOR AUTHOR'S ORGANIZ ATION 01/05/2023 [facility] DATE CREATED AUTHOR AUTHOR'S ORGANIZ ATION 04/30/2024 [facility] DATE CREATED AUTHOR AUTHOR'S ORGANIZ ATION 05/19/2024 [place] [facility] (unrecognized sec tion and content) Team Status: Inactive Member Role Status Dates Johnny Coronado MD Attending Provider Active Team Status: Active Member Role Status Dates Keagan Oro DO Primary Care Provider Active Team Status: Inactive Member Role Status Dates Tony Lieberman MD Attending Provider Active Keagan Oro DO Primary Care Provider Active Team Status: Active Member Role Status Dates Agustina Andrews GOLF COURSE ASSISTANT-C Primary Care Provider Active Team Status: Inactive Member Role Status Dates Agustnia Andrews , GOLF COURSE ASSISTANT-C Primary Care Provider Active Bryon Moffett DO Emergency Provider Active Team Status: Active Member Role Status Dates Keagan Oro DO Primary Care Provider Active Jennifer Koenig APRN Attending Provider Active Team Status: Inactive Member Role Status Dates Agustina Andrews GOLF COURSE ASSISTANT-C Primary Care Provider Active Williams Coronado MD Attending Provider Active Team Status: Inactive Member Role Status Dates Keagan Oro DO Primary Care Provider Active Start: October 19, 2023 End: October 19, 2023 Jennifer Koenig APRN Attending Provider Active St art: October 19, 2023 End: October 19, 2023 Team Status: Inactive Member Role Status Dates Agusitna Andrews GOLF COURSE ASSISTANT-C Primary Care Provider Active Start: December 23, 2023 End: December 23, 2023 Enrico Mc DO Attending Provider Active St art: December 23, 2023 End: December 23, 2023 Team Status: Inactive Member Role Status Dates Agustina Andrews , GOLF COURSE ASSISTANT-C Primary Care Provider Active Start: January 17, 2024 End: January 17, 2024 Enrico Mc DO Attending Provider Active St art: January 17, 2024 End: January 17, 2024 Team Status: Active Member Role Status Dates Agustina Andrews , GOLF COURSE ASSISTANT-C Primary Care Provider Active Start: January 17, 2024 Enrico Mc DO Other Provider Active Start: January 17, 2024 Efren Esteves MD Attending Provider Active Start: January 17, 2024 Team Status: Inactive Member Role Status Dates Agustina Andrews GOLF COURSE ASSISTANT-C Primary Care Provider Active Start: February 24, 2024 End: February 24, 2024 Enrico Mc DO Attending Provider Active St art: February 24, 2024 End: February 24, 2024 Team Status: Inactive Member Role Status Dates Agustina Andrews , GOLF COURSE ASSISTANT-C Primary Care Provider Active Start: April 28, [...] BE BASED ON THE PRIMARY CLINICAL RECORDS. [facility] provides no warranty or guarantee of the accuracy or completeness of information in this document.
[2024-06-08 15:25] LABS: Internal Control Within Normal Limits; Occult Blood Positive
== END 2024-06-08 14:30 | disposition home or self-care (01) ==
LOC: LAB 14:29
PROVIDERS: PCP Nurse Practitioner Family; Visit Provider Nurse Practitioner Family
DX: Z00.00 Encounter for general adult medical examination without abnormal findings (principal)
CPT/HCPCS: G0328

== ENCOUNTER 2024-08-16 08:39 | Outpatient (OUT) | payer BC, SELFPAY ==
--- OUTSIDE RECORDS SUMMARY | 2024-08-16 08:53 | XMS_ITS | CCD ---
Author Organization [facility] Care Team Providers Care Youth Career Specialist Name Role Phone HOUSE, DR CROOKS Consulting [...] Attending Unavailable MD Johnny Coronado Attending Provider [phone] Tony Lieberman Unavailable MD Tony Lieberman Attending Provider [phone] DO Keagan Oro Primary Care Provider MD Tony Lieberman Attending Provider DO Keagan Oro Primary Care Provider KAVYA Benitez Primary Care Provider DO Bryon Moffett Emergency Provider RITU Koenig Attending Provider [phone] MD Williams Coronado Attending Provider DO Keagan Oro Primary Care Provider [phone] RITU Koenig Attending Provider KAVYA Benitez Primary Care Provider [phone] DO Enrico Mc Attending Provider [phone] Jennifer Koenig Admitting Unavailable Jennifer Koenig Attending Unavailable Xander Keagan Primary [facility] Unavailable Williams Coronado Admitting Unavailable Williams Coronado Attending Unavailable Agustina Benitez Primary Care Unavailable SamEnrico isaac P Admitting Unavailable SamsaEnrico P Attending Unavailable Agustina Benitez Primary Care Unavailable Efren Esteves Attending UnavailEfren Yun Admitting Unavaila Agustina Cruz Primary Care Unavailable Bryon Moffett Attending Unavailable Agustina Benitez Primary Care Unavailable Bryon Moffett Admitting Unavailable Chahenry, Kamal Admitting Unavailable Chaban Kamal Attending Unavailable Keagan Oro Primary [facility] Unavailable KAVYA Benitez Primary Care Provider [phone] MD Efren Esteves Attending Provider Juliana [employer], Agustina Jennings Primary Care Provider [phone] Efren Esteves MD Attending Provider Silvestre YANES Attending Unavailable AGUSTINA BENITEZ Referring Unavailable AGUSTINA BENITEZ Primary Care Physician [phone] MALLORIE LUGO Attending Unavailable Allergies Allergy Classification Reported Allergen(s) Allergy Type Date of Onset Reaction(s) Facility (1 source) No Known Medication Allergies; Translations: [No Known Medication Allergies] Propensity to adverse reactions (disorder) [facility] Rep[facility] Medications Current Medications Medication Drug Class(es) Dates Sig (Normalized) Sig (Original) [id number] actuat albuterol 0.09 mg/actuat metered dose inhaler (1 source) beta2-Adrenergic Agonist Start: 06-15-2024 take 1 puff(s) by inhalation every four hours as needed for wheezing Albuterol Sulfate 90 mcg/actuation HFA aerosol inhaler Active 2 PUFF INHALATION Every 4 hours as needed for shortness of breath or wheezing 08 24June 15, 2024 12:00am May substitute with generic albuterol, ProAir, Proventil, or Ventolin - whichever is covered by insurance or cheaper for the patient. aspirin 81 mg delayed release oral tablet (1 source) Platelet Aggregation Inhibitor, Nonsteroidal Anti-inflammatory Drug Start: 07-03-2024 take 1 tablet by mouth once daily aspirin 81 mg Oral EC Tab 81 mg = 1 tab(s), Oral, Daily, Refills(s) 0 Start Date: 07/03/24 Status: Ordered atenolol 100 mg oral tablet (11 sources) beta-Adrenergic Reyes Start: 07-03-2024 take 1 tablet by mouth once daily atenolol 100 mg Tab 100 mg = 1 tab(s), Oral, Daily, Refills(s) 0 Start Date: 07/03/24 Status: Ordered Start: 06-18-2023 Atenolol 100 m g Tablet Active 150 MG PO Daily June 18, 2023 12:00am Start: 06-18-2023 take 150 mg by mouth once kendy y Atenolol Active 150 MG PO Daily June 18, 2023 1:00am Start: 06-18-2023 take 100 mg by mouth once kendy y Atenolol Active 100 MG PO Daily June 18, 2023 12:00am take 1 tablet by demar th every twenty-four hours Atenolol 100 MG 1 tablet Orally Once a day Active atorvastatin 40 mg oral tablet (1 source) HMG-CoA Reductase Inhibitor Start: 07-03-2024 take 1 tablet by mouth once daily atorvastatin 40 mg Tab 40 mg = 1 tab(s), Oral, Daily, Refills(s) 0 Start Date: 07/03/24 Status: Ordered cholestyramine resin 4000 mg powder for oral suspension (7 sources) Bile Acid Sequestrant Start: 06-22-2023 take 1 dose by mouth twice daily Cholestyramine (With Sugar) 4 gram Powder Active 4 GM PO Twice daily June 22, 2023 12:00am administer w/meal; avoid other meds within 1hr before or 4-6hr after dose clopidogrel 75 mg oral tablet (8 sources) [id number] Platelet Inhibitor Start: 07-03-2024 take 1 tablet by mouth once daily Plavix 75 mg Tab 75 mg = 1 tab(s), Oral, Daily, Refills(s) 0 Start Date: 07/03/24 Status: Ordered Start: 06-22-2023 take 1 tablet by demar th once daily Clopidogrel (Plavix) 75 mg Tablet Active 75 MG PO Daily June 22, 2023 12:00am NIFEdipine 60 mg oral tablet (11 sources) Dihydropyridine Calcium Channel Reyes Start: 07-03-2024 take 1 tablet by mouth once daily NIFEdipine 60 mg ER Tab 60 mg = 1 tab(s), Oral, Daily, Refills(s) 0 Start Date: 07/03/24 Status: Ordered Start: 06-18-2023 take 1 tablet by demar once daily Nifedipine 60 mg tablet extended release Active 60 MG PO Daily June 18, 2023 12:00am take 1 tablet by demar every twenty-four hours NIFEdipine ER 60 MG 1 tablet on an empty stomach Orally Once a day Active omeprazole 20 mg delayed release oral capsule (10 sources) Proton Pump Inhibitor Start: 06-18-2023 take 1 capsule by mouth once daily Omeprazole 20 mg Capsule,Delayed Release(Dr/Ec) Active 20 MG PO Daily June 18, 2023 12:00am take 1 capsule by mouth once sakshi ly Omeprazole 20 MG 1 capsule 30 minutes before morning meal Orally Once a day Active pantoprazole 40 mg delayed release oral tablet (1 source) Proton Pump Inhibitor Start: 07-03-2024 take 1 tablet by mouth once daily Pantoprazole [address] Tab 40 mg = 1 tab(s), Oral, Daily, Refills(s) 0 Start Date: 07/03/24 Status: Ordered sertraline 50 mg oral tablet (11 sources) Serotonin Reuptake Inhibitor Start: 07-03-2024 take 3 tablets by mouth once daily Zoloft 50 mg Tab 150 mg = 3 tab(s), Oral, Daily, Refills(s) 0 Start Date: 07/03/24 Status: Ordered Start: 06-18-2023 take 1 tablet by demar once daily Sertraline 100 mg tablet Active 100 MG PO Daily June 18, 2023 12:00am take 1 tablet by [facility] every twenty-four hours Sertraline HCl 100 MG 1 tablet Orally Once a day Active varenicline 1 mg oral tablet (11 sources) Partial Cholinergic Nicotinic Agonist Start: 06-18-2023 End: 06-15-2024 take 1 tablet by mouth twice daily Varenicline 1 mg tablet Active 1 MG PO Twice daily 60 June 15, 2024 9:15am = Continuing pack Varenicline Tart rate 1 MG as directed Orally Active Varenicline 0.5 mg (11)- 1 mg (42) tablets,dose pack (1 source) Start: 06-15-2024 take 1 tablet by mouth once Varenicline 0.5 mg (11)- 1 mg (42) tablets,dose pack Active 0 PO per package directions 53 June 15, 2024 12:00am = Starter Pack Completed/Discontinued Medications Medication Drug Class(es) Dates Sig (Normalized) Sig (Original) cefdinir 300 mg oral capsule (8 sources) Cephalosporin Antibacterial Start: 06-18-2023 End: 07-07-2023 take 1 capsule by mouth twice daily Cefdinir 300 mg capsule Discontinued 300 MG PO Twice daily June 18, 2023 12:00am July 07, 2023 7:19am doxycycline monohydrate 100 mg oral capsule (8 sources) Tetracycline-class Drug Start: 06-18-2023 End: 07-07-2023 take 1 capsule by mouth twice daily Doxycycline Monohydrate 100 mg capsule Discontinued 100 MG PO Twice daily June 18, 2023 12:00am July 07, 2023 7:19am X 10 DAYS mupirocin 0.02 mg/mg topical ointment (8 sources) RNA Synthetase Inhibitor Antibacterial Start: 06-18-2023 End: 06-22-2023 Mupirocin 2 % ointment Discontinued 0 .ROUTE .COMPLEX June 18, 2023 12:00am June 22, 2023 7:59am APPLY TO DISCOLORED AREAS Start: 06-18-2023 End: 06-22-2023 Mupirocin Discontinued 0 .RO KARINA .COMPLEX June 18, 2023 1:00am June 22, 2023 8:59am APPLY TO DISCOLORED AREAS Problems Active Problems Problem Classification Problem Date Documented Date Episodic/Chronic Alcohol-related disorders (1 source) Alcohol abuse 07-03-2024 Chronic Chronic obstructive pulmonary disease and bronchiectasis (16 sources) Chronic obstructive lung disease; Translations: [Chronic obstructive pulmonary disease, unspecified] Chronic Chronic ulcer of skin (1 source) Non-pressure chronic ulcer of skin of other sites with unspecified severity; Translations: [Non-pressure chronic ulcer of skin of other sites with unspecified severity] Onset: 10-19-19 Chronic Disorders of lipid metabolism (1 source) Hypertriglyceridemia 07-03-2024 Chronic Esophageal disorders (6 sources) Gastroesophageal reflux disease; Translations: [Gastro-esophageal reflux disease without esophagitis] 12-14-2023 Chronic Gangrene (20 sources) Raynaud's disease; Translations: [Raynaud's syndrome with gangrene] Chronic Immunity disorders (2 sources) Autoimmune disease; Translations: [Other specified disorders involving the immune mechanism, not elsewhere classified] 08-12-2023 Chronic Other and ill-defined heart disease (4 sources) Diastolic dysfunction; Translations: [Other ill-defined heart diseases] 12-23-2023 Chronic Other and ill-defined heart disease (5 sources) Other ill-defined heart diseases; Translations: [Heart disease, unspecified] 12-23-2023 Chronic Other circulatory disease (2 sources) Raynaud's syndrome without gangrene; Translations: [Raynaud's syndrome] Onset: 10-19-1907-22-2023 Chronic Other circulatory disease (8 sources) Vascular disorder of extremity; Translations: [Disorder of arteries and arterioles, unspecified] 06-18-2023 Chronic Other circulatory disease (7 sources) Thromboangiitis obliterans; 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]] 06-22-2023 Chronic Other circulatory disease (3 sources) 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]; 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]] 07-22-2023 Chronic Other diseases of veins and lymphatics (5 sources) Calcified lymph nodes; Translations: [Other specified noninfective disorders of lymphatic vessels and lymph nodes] 12-23-2023 Chronic Other diseases of veins and lymphatics (6 sources) Other specified noninfective disorders of lymphatic vessels and lymph nodes; Translations: [Other noninfectious disorders of lymphatic channels] 12-23-2023 Chronic Other gastrointestinal disorders (1 source) Abnormal feces; Translations: [Other fecal abnormalities] Onset: 08-01-19 Episodic Other gastrointestinal disorders (1 source) Occult blood in stools 07-03-2024 Episodic Other lower respiratory disease (2 sources) Parietoalveolar pneumopathy; 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, unspecified] Chronic Other lower respiratory disease (6 sources) Interstitial lung disease; 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, unspecified] 12-14-2023 Chronic Other lower respiratory disease (3 sources) Nodule of lung; Translations: [Solitary pulmonary nodule] 12-14-2023 Episodic Other lower respiratory disease (4 sources) Solitary pulmonary nodule; Translations: [Solitary pulmonary nodule] Onset: 05-21-20 Episodic Other lower respiratory disease (5 sources) Cavitation of lung; Translations: [Other disorders of lung] 12-23-2023 Episodic Other lower respiratory disease (6 sources) Other disorders of lung; Translations: [Other diseases of lung, not elsewhere classified] 12-23-2023 Episodic Other nutritional; endocrine; and metabolic disorders (1 source) Overweight 07-03-2024 Episodic Other nutritional; endocrine; and metabolic disorders (1 source) Overweight in adulthood with body mass index of 25 or more but less than 30 08-01-2024 Episodic Other screening for suspected conditions (not mental disorders or infectious disease) (2 sources) Radiology result abnormal; Translations: [Abnormal findings on diagnostic imaging of other specified body structures] Chronic Other skin disorders (2 sources) Rash and other nonspecific skin eruption; Translations: [Rash and other nonspecific skin eruption] Onset: 08-08-19 Episodic Pulmonary heart disease (14 sources) Secondary pulmonary hypertension; Translations: [Other secondary pulmonary hypertension] Onset: 07-22-2012-23-2023 Chronic Comment on above: Echocardiogram:-06/26: RVSP 43mmHg-12/10/2022: RVSP 18mmHg Residual codes; unclassified (7 sources) Pain; Translations: [Pain, unspecified] 07-07-2023 Episodic Residual codes; unclassified (3 sources) Tobacco user; Translations: [Tobacco use] 07-07-2023 Episodic Residual codes; unclassified (1 source) Pain, unspecified; Translations: [Generalized pain] 07-22-2023 Episodic Residual codes; unclassified (2 sources) Tobacco use; Translations: [Tobacco use disorder] 07-22-2023 Episodic Substance-related disorders (20 sources) Tobacco user; Translations: [Nicotine dependence, unspecified, uncomplicated] Chronic Systemic lupus erythematosus and connective tissue disorders (13 sources) CREST syndrome; 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] Onset: 01-17-20 24 12-23-2023 Chronic Unclassified (3 sources) CONTACT W/AND (SUSP) EXPOS COVID-19; Translations: [CONTACT W/AND (SUSP) EXPOS COVID-19] Onset: 07-15-20 Unclassified (4 sources) Inflammatory disorder; Translations: [Inflammation] 06-22-2023 Viral infection (1 source) COVID-19; Translations: [COVID-19] Onset: 07-11-20 Past or Other Problems Problem Classification Problem Date Documented Da te Episodic/Chronic Gangrene (6 sources) Gangrenous disorder; Translations: [Gangrene, not elsewhere classified] Onset: 06-18-2023 06-18-2023 Episodic Unclassified (1 source) CONTACT W/AND (SUSP) EXPOS COVID-19; Translations: [CONTACT W/AND (SUSP) EXPOS COVID-19] Onset: 07-13-2022 Results Test Name Value Interpretation Reference Range Facility 36on 08-08-2024 36 Called and left vm t o schedule venous reflux (75) and follow up with H,P. Ideally would like same day. [facility] Follow-Upon 08-08-2024 Follow-Up [id number] Jair Thorne fuentes 1975 M Date Provider Department Center 08/08/2024 Kimani-MALLORIE LUGO [facility]AS[facility] No family history on file Level of Service:27273 [place] OFFICE/OUTPATIENT ESTABLISHED MOD MDM 30 MIN Reason for Visit and Comments: Follow-up [020819] - Raynaud's w gangrene, colonoscopy scheduled 08/22 ask if can be off plavix Inpatient 06/30/23 [facility] Ambulatory Visit Summaryon 0 08-01-2024 Ambulatory Visit Summary Ambulatory Visit Summary RITCHIE THORNE :1975 Visit Date:08/01/2024 Ambulatory Visit Instructions Your Care Team Attending Physician - Silvestre YANES MD Primary Care Physician - AGUSTINA BENITEZ CNP Referring Physician - AGUSTINA BENITEZ CNP This Is Your Medications List Contact prescribing physician if questions or concerns NIFEdipine (NIFEdipine 60 mg ER Tab) aspirin (aspirin 81 mg Oral EC Tab) atenolol (atenolol 100 mg Tab) atorvastatin (atorvastatin 40 mg Tab) clopidogrel (Plavix 75 mg Tab) pantoprazole (Pantoprazole [address] Tab) sertraline (Zoloft 50 mg Tab) Procedures Performed Cholecystectomy. Discharge Vitals Heart Rate (Peripheral) 89 Respiratory Rate 16 Blood Pressure 149/94 Height 182.8 cm Height 72 in Weight 97 kg Weight 213.848 lb BMI 29.03 Medications What How Much When Instructions Unchanged aspirin (aspirin 81 mg Oral EC Tab) 1 Tablets By Mouth Every day Contact prescribing physician if questions or concerns Unchanged atenolol (atenolol 100 mg Tab) 1 Tablets By Mouth Every day Contact prescribing physician if questions or concerns Unchanged atorvastatin (atorvastatin 40 mg Tab) 1 Tablets By Mouth Every day Contact prescribing physician if questions or concerns Unchanged clopidogrel (Plavix 75 mg Tab) 1 Tablets By Mouth Every day Contact prescribing physician if questions or concerns Unchanged NIFEdipine (NIFEdipine 60 mg ER Tab) 1 Tablets By Mouth Every day Contact prescribing physician if questions or concerns Unchanged pantoprazole (Pantoprazole [address] Tab) 1 Tablets By Mouth Every day Contact prescribing physician if questions or concerns Unchanged sertraline (Zoloft 50 mg Tab) 3 Tablets By Mouth Every day Contact prescribing physician if questions or concerns Allergies No Known Allergies No Known Medication Allergies Problems Ongoing - Any problem that you are currently receiving treatment for. Alcohol abuse BMI 29.0-29.9,adult CREST syndrome Emphysema lung Hypertriglyceridemia Overweight Positive occult stool blood test Pulmonary hypertension Raynauds syndrome Patient Survey You may receive a survey via text or e-mail asking about your office visit. Please share your experience with us by completing your survey. We appreciate your feedback and thank you for choosing us for your care. [facility] 36on 05-17-2024 36 Contacted patient to get him set up for a year follow up (Raynauds). Let him know we could do a 30 day refill (atorvastatin) and the provide would do the follow up and go from there. Patient has to discuss follow up appt with . Calling 05/18 at 12 pm to schedule 1 year follow up. [facility] CT chest wo [facility] 04-28-2024 CT chest wo [facility] [place] [address] CT Scan Report Signed Patient: Ritchie Thorne MR#: [id number] : 1975 Acct:[id number] Age/Sex: 48 / M ADM Date: 04/28/24 Loc: CT Room: Type: [facility] Attending Dr: Efren Esteves MD Copies to: [...] recommended. Impression dictated by: Feliciano Rios Jr., D.OTariq04/28/2024 9:10 AM Dictation Location: [place] [address] Transcribed By: [facility] 04/28/24909 Dictated By: Feliciano Rios Jr, DO 04/28/24906 Signed By: 04/28/24909 Normal [facility] ECH echo transthoracicon [facility] echo transthoracic [facility] [place] [address] Echocardiogram Signed Patient: Ritchie Thorne MR#: [id number] : 1975 Acct:[id number] Age/Sex: 48 / M ADM Date: 01/17/24 Loc: Room: Type: [facility] Attending Dr: Enrico Mc DO Ordering Provider: Enrico Mc DO Date of Service: 01/17/24 ECH/ECH echo transthoracic: I27.29 - Other secondary pulmonary [...] FS: 37.7 % Ao root area: 7.2 [id number] ap4: 8.1 cm TAPSE: 3.0 cm EDV(Teich): [...] Micheal Ratliff MD 01/17/24 1356 Normal [facility] echo transthoracicon [facility] echo transthoracic [facility] Main [place] [address] [place] [address] Echocardiogram Signed Patient: Ritchie Thorne MR#: [id number] : 1975 Acct:[id number] Age/Sex: 47 / M ADM Date: 07/22/23 Loc: RT Room: Type: [facility] Attending Dr: Williams Coronado MD Ordering Provider: Williams Coronado MD Date of Service: 07/22/23/ [facility] echo transthoracic: PULMONARY HYPERTENSION, PULMONARY FIBROSIS Copies [...] mmHg RAP systole: 5.0 mmHg Transcribed By: DIAMOND Performed At: 07/22/23 1033 Signed By: Dat Knox MD 07/22/23 1842 Normal [facility] Activated partial thrombopla stin time (aPTT) in platelet poor plasma by coagulation aOrdered By: Williams Krause on 06-18-2023 aPTT Coag (PPP) [Time] 28.0 s 25.1-36.5 [facility] Comment on above: A hematocrit value g reater than 55% may lead to inaccurate results in coagulation testing. Patients having hematocrit values >55% require a special collection tube for coagulation studies. Please contact the laboratory at [phone] for redraw instructions. Automated basophil %Ordered By: Williams Krause on 06-18-2023 Basophils/100 WBC (Bld) 1.3 % Normal . [facility] Comment on above: Performed By: #### P T, PTT, CBC, BMP #### [address] Automated basophil countOrde red By: Williams Krause on 06-18-2023 Basophils (Bld) [#/Vol] 0.1 10*3/uL Normal 0.0-0.2 [facility] Comment on above: Result Comment: PERF ORMED BY: [place] [address] PATHOLOGIST INFORMATICA ARCHITECT SYMONE MACHADO M.D. Performed By: #### P T, PTT, CBC, BMP #### [address] Automated blood monocyte cou ntOrdered By: Williams Krause on 06-18-2023 Monocytes (Bld) [#/Vol] 0.7 10*3/uL Normal 0.0-0.8 [facility] Comment on above: Performed By: #### P T, PTT, CBC, BMP #### [address] Automated eosinophil %Ordere d By: Williams Krause on 06-18-2023 Eosinophils/100 WBC (Bld) 1.0 % Normal . [facility] Comment on above: Performed By: #### P T, PTT, CBC, BMP #### [address] Automated eosinophil countOr dered By: Williams Krause on 06-18-2023 Eosinophils (Bld) [#/Vol] 0.1 10*3/uL Normal 0.0-0.45 [facility] Comment on above: Performed By: #### P T, PTT, CBC, BMP #### [place] [address] [place] Automated monocyte %Ordered By: Wliliamsaurea Krause on 06-18-2023 Monocytes/100 WBC (Bld) 10.5 % Normal . [facility] Comment on above: Performed By: #### P T, PTT, CBC, BMP #### [address] Automated neutrophil %Ordere d By: Williams Krause on 06-18-2023 Neutrophils/100 WBC (Bld) 53.3 % Normal . [facility] Comment on above: Performed By: #### P T, PTT, CBC, BMP #### [address] Basic Metabolic Panelon 05-27 Anion gap [Moles/Vol] Not performed Normal 6.0-15.0 [facility] Comment on above: Performed By: #### P T, PTT, CBC, BMP #### [address] Creatinine Clr Calc Pharmacy 104.34 Normal [facility] Comment on above: Result Comment: PERF ORMED BY: [place] [address] PATHOLOGIST [employer]FORMAT[employer] ARCHITECT SYMONE MACHADO M.D. Performed By: #### P T, PTT, CBC, BMP #### [address] GFR/1.73 sq M.predicted MDRD (S/P/Bld) [Vol rate/Area] mL/min/{1.73_m2} Normal [facility] Comment on above: Performed By: #### P T, PTT, CBC, BMP #### [place] [address] [place] Potassium Normal 3.5-5.1 [facility] Comment on above: Result Comment: Spec imen hemolyzed, redraw requested Results called at 0628 on 06/18/23 Performed By: #### P T, PTT, CBC, BMP #### [place] [address] [place] C reactive protein [Mass/vol ume] in Serum or PlasmaOrdered By: Williams Nelida on 06-18-2023 CRP [Mass/Vol] < 0.5 mg/dL 0.0-0.5 [facility] C-Reactive Proteinon 023 CRP [Mass/Vol] mg/L Normal 0.0-0.5 [facility] Comment on above: Result Comment: PERF ORMED BY: [place] [address] PATHOLOGIST [employer] ARCHITECT SYMONE MACHADO M.D. Performed By: #### E SR, CRP #### [place] [address] [place] Calcium [Mass/volume] in Ser um or PlasmaOrdered By: Williams Krause on 06-18-2023 Calcium [Mass/Vol] 8.5 mg/dL Low 8.6-10.3 [facility] Comment on above: Performed By: #### P T, PTT, CBC, BMP #### [address] Carbon dioxide, total [Moles /volume] in Serum or PlasmaOrdered By: Williams Krause on 06-18-2023 CO2 [Moles/Vol] 19.2 mmol/L Low 21.0-31.0 [facility] Comment on above: Performed By: #### P T, PTT, CBC, BMP #### [place] [address] [place] Chloride [Moles/volume] in S akiko or PlasmaOrdered By: Williams Krause on 06-18-2023 Chloride [Moles/Vol] 106 mmol/L Normal 98-107 [facility] Comment on above: Performed By: #### P T, PTT, CBC, BMP #### [place] [address] [place] Complete Blood Count Auto Di ffon 06-18-2023 Mean Corpuscular HGB Conc 34.9 g/dL Normal 32.5-35.6 [facility] Comment on above: Performed By: #### P T, PTT, CBC, BMP #### [facility] [address] Monocytes/100 WBC (Bld) 19.18 % Normal 0.00-20.00 [facility] Comment on above: Performed By: #### P T, PTT, CBC, BMP #### [facility] [address] NRBC% 0.3 /100{WBC} Normal 0-0.5 [facility] Comment on above: Performed By: #### P T, PTT, CBC, BMP #### [address] Creatinine [Mass/volume] in Serum or PlasmaOrdered By: Williams Krause on 06-18-2023 Creatinine [Mass/Vol] 0.94 mg/dL Normal 0.70-1.30 [facility] Comment on above: Performed By: #### P T, PTT, CBC, BMP #### [facility] [address] [place] [address] ECG 12 lead ECGon 06-18-2023 ECG 12 lead ECG [facility] [place] [address] [place] [address] Electrocardiograph Report Signed Patient: Ritchie Thorne MR#: [id number] : 1975 Acct:[id number] Age/Sex: 47 / M ADM Date: 06/18/23 Loc: ER Room: Type: [facility] ER Attending Dr: Ordering Provider: Williams [...] sinus rhythm Confirmed by Williams Krause DO ([id number]) on 06/18/2023 6:31:26 AM Referred By: Electronically Signed By:Williams Krause DO Transcribed By: MUS Signed By Williams Krause DO 0631 Normal [facility] Erythrocyte Sedimentation Ra nellie 06-18-2023 ESR (Bld) [Velocity] 18 mm/h High 0-14 [facility] Comment on above: Result Comment: PERF ORMED BY: [place] [address] PATHOLOGIST INFORMATICA ARCHITECT SYMONE MACHADO M.D. Performed By: #### P T, PTT, CBC, BMP #### [address] Erythrocyte distribution wid th [Ratio] by Automated countOrdered By: Williams Krause on 06-18-2023 Erythrocyte distribution width (RBC) [Ratio] 13.2 % Normal 12.0-14.8 [facility] Comment on above: Performed By: #### P T, PTT, CBC, BMP #### [address] Erythrocyte sedimentation ra te by Photometric methodOrdered By: Williams Krause on 06-18-2023 ESR Photometric method (Bld) [Velocity] 18 mm/hr 0-14 [facility] Erythrocytes [#/volume] in B lood by Automated countOrdered By: Williams Krause on 06-18-2023 RBC (Bld) [#/Vol] 4.26 10*6/uL Normal 3.90-5.60 [facility] Comment on above: Performed By: #### P T, PTT, CBC, BMP #### [facility] [address] [place] [address] Glucose [Mass/volume] in Ser um or PlasmaOrdered By: Williams Krause on 06-18-2023 Glucose [Mass/Vol] 119 mg/dL High 70-100 [facility] Comment on above: ADA recommended refe rence rangeRandom Glucose Reference Range is dependent on time and content of last meal. Glucose of more than 200 mg/dL in a nonstressed, ambulatory subject supports the diagnosis of Diabetes Mellitus. Result Comment: Ideal om Glucose Reference Range is dependent on time and content of last meal. Glucose of more than 200 mg/dL in a nonstressed, ambulatory subject supports the diagnosis of Diabetes Mellitus. ADA recommended reference range Performed By: #### P T, PTT, CBC, BMP #### [address] Hematocrit [Volume Fraction] of Blood by Automated countOrdered By: Williams Krause on 06-18-2023 Hematocrit (Bld) [Volume fraction] 41.1 % Normal 38.8-50.0 [facility] Comment on above: Performed By: #### P T, PTT, CBC, BMP #### [facility] [address] Hemoglobin [Mass/volume] in BloodOrdered By: Williams Krause on 06-18-2023 Hemoglobin (Bld) [Mass/Vol] 14.3 g/dL Normal 13.0-17.0 [facility] Comment on above: Performed By: #### P T, PTT, CBC, BMP #### [address] INR in Platelet poor plasma by Coagulation assayOrdered By: Williams Krause on 06-18-2023 INR Coag (PPP) [Relative time] 1.0 {INR} Normal [facility] Comment on above: INR Therapeutic Rang [...] #### P T, PTT, CBC, BMP #### [place] [address] [place] Leukocytes [#/volume] correc quentin for nucleated erythrocytes in Blood by Automated counOrdered By: Williams Krause on 06-18-2023 WBC corrected for nucl RBC Auto (Bld) [#/Vol] 6.2 10*3/uL 4.1-10.5 [facility] Leukocytes [#/volume] in Blo od by Automated countOrdered By: Williams Krause on 06-18-2023 WBC (Bld) [#/Vol] 6.2 10*3/uL Normal 4.1-10.5 [facility] Comment on above: Performed By: #### P T, PTT, CBC, BMP #### [facility] [address] [place] [address] Lymphocytes [#/volume] in Bl ood by Automated countOrdered By: Williams Krause on 06-18-2023 Lymphocytes (Bld) [#/Vol] 2.1 10*3/uL Normal 1.00-4.8 [facility] Comment on above: Performed By: #### P T, PTT, CBC, BMP #### [facility] [address] [place] [address] Lymphocytes/100 leukocytes i n Blood by Automated countOrdered By: Williams Krause on 06-18-2023 Lymphocytes/100 WBC (Bld) 33.9 % Normal . [facility] Comment on above: Performed By: #### P T, PTT, CBC, BMP #### [facility] [address] [place] [address] MCH [Entitic mass] by Automa quentin countOrdered By: Williams Krause on 06-18-2023 MCH (RBC) [Entitic mass] 33.7 pg Normal 27.5-35.2 [facility] Comment on above: Performed By: #### P T, PTT, CBC, BMP #### [facility] [address] [place] [address] MCHC Auto (RBC) [Mass/Vol]Or dered By: Williams Krause on 06-18-2023 MCHC (RBC) [Mass/Vol] 34.9 g/dL 32.5-35.6 [facility] MCV [Entitic volume] by Auto mated countOrdered By: Williams Krause on 06-18-2023 MCV (RBC) [Entitic vol] 96.6 fL Normal 83.5-101 [facility] Comment on above: Performed By: #### P T, PTT, CBC, BMP #### [facility] [address] Monocyte distribution width [Entitic volume] in Blood by AutomatedOrdered By: Williams Robbinsarthy on 06-18-2023 Monocyte distribution width Auto (Bld) [Entitic vol] 19.18 % 0.00-20.00 [facility] Neutrophils [#/volume] in Bl ood by Automated countOrdered By: Williams Robbinsarthy on 06-18-2023 Neutrophils (Bld) [#/Vol] 3.3 10*3/uL Normal 1.8-7.7 [facility] Comment on above: Performed By: #### P T, PTT, CBC, BMP #### [facility] [address] [place] [address] No Panel InformationOrdered By: Williams Krause on 06-18-2023 Estimated GFR (CKD-EPI) > 60.0 mL/Min [facility] Creatinine Clearance (Chem 104.34 [facility] Nucleated erythrocytes [Pres ence] in Blood by Automated countOrdered By: Williams Nelida on 06-18-2023 Nucleated RBC Auto Ql (Bld) 0.3 /100{WBC} 0-0.5 [facility] Partial Thromboplastin Timeo n 06-18-2023 aPTT Coag (Bld) [Time] 28.0 s Normal 25.1-36.5 [facility] Comment on above: Result Comment: A he matocrit value greater than 55% may lead to inaccurate results in coagulation testing. Patients having hematocrit values >55% require a special collection tube for coagulation studies. Please contact the laboratory at [phone] for redraw instructions. PERFORMED BY: [address] [place] [address] PATHOLOGIST INFORMATICA ARCHITECT SYMONE MACHADO M.D. Performed By: #### P T, PTT, CBC, BMP #### [address] Platelet mean volume [Entiti c volume] in Blood by Automated countOrdered By: Williams Krause on 06-18-2023 Platelet mean volume (Bld) [Entitic vol] 7.7 fL Normal 6.6-10.1 [facility] Comment on above: Performed By: #### P T, PTT, CBC, BMP #### [address] Platelets [#/volume] in Bloo d by Automated countOrdered By: Williams Krause on 06-18-2023 Platelets (Bld) [#/Vol] 297 10*3/uL Normal 150-450 [facility] Comment on above: Performed By: #### P T, PTT, CBC, BMP #### [address] Potassium [Moles/volume] in Serum or PlasmaOrdered By: Williams Krause on 06-18-2023 Potassium [Moles/Vol] 4.7 mmol/L Normal 3.5-5.1 [facility] Comment on above: Result Comment: PERF ORMED BY: [place] [address] PATHOLOGIST INFORMATICA ARCHITECT SYMONE MACHADO M.D. Performed By: #### P T, PTT, CBC, BMP #### [address] Prothrombin time (PT)Ordered By: Williams Krause on 06-18-2023 PT Coag (PPP) [Time] 12.2 s Normal 9.0-12.9 [facility] Comment on above: A hematocrit value g reater than 55% may lead to inaccurate results in coagulation testing. Patients having hematocrit values >55% require a special collection tube for coagulation studies. Please contact the laboratory at [phone] for redraw instructions. Result Comment: A he matocrit value greater than 55% may lead to inaccurate results in coagulation testing. Patients having hematocrit values >55% require a special collection tube for coagulation studies. Please contact the laboratory at [phone] for redraw instructions. Performed By: #### P T, PTT, CBC, BMP #### [facility] [address] [place] [address] Serum or plasma anion gap de terminationOrdered By: Williams Krause on 06-18-2023 Anion gap [Moles/Vol] TNP [facility] Comment on above: Test not performed Sodium [Moles/volume] in Ser um or PlasmaOrdered By: Williams Krause on 06-18-2023 Sodium [Moles/Vol] 134 mmol/L Low 136-145 [facility] Comment on above: Performed By: #### P T, PTT, CBC, BMP #### [facility] [address] [place] [address] Urea nitrogen [Mass/volume] in Serum or PlasmaOrdered By: Williams Krause on 06-18-2023 Urea nitrogen [Mass/Vol] 22 mg/dL Normal 7-25 [facility] Comment on above: Performed By: #### P T, PTT, CBC, BMP #### [facility] [address] [place] [address] CT chest wo con high reson 1 CT chest wo con high res [facility] [place] [address] CT Scan Report Signed Patient: Ritchie Thorne MR#: [id number] : 1975 Acct:[id number] Age/Sex: 47 / M ADM Date: 05/21/23 Loc: CT Room: Type: [facility] Attending Dr: Tony Lieberman MD Copies [...] Rios Jr., D.O.05/21/2023 11:52 AM Dictation Location: [place] [address] Transcribed By: [facility] 05/21/23 1152 Dictated By: Feliciano Rios Jr, DO 05/21/23 1138 Signed By: 05/21/23 1152 Normal [facility] Activated partial thrombopla stin time (aPTT) in platelet poor plasma by coagulation aOrdered By: Williams Coronado on 11-24-2022 aPTT Coag (PPP) [Time] 27.6 s 25.1-36.5 [facility] Alanine aminotransferase [En zymatic activity/volume] in Serum or PlasmaOrdered By: Williams Coronado on 11-24-2022 ALT [Catalytic activity/Vol] 34 U/L [facility] Albumin [Mass/volume] in Ser um or Plasma by Bromocresol green (BCG) dye binding methoOrdered By: Williams Coronado on 11-24-2022 Albumin BCG dye [Mass/Vol] 4.2 g/dL 3.5-5.7 [facility] Alkaline phosphatase [Enzyma tic activity/volume] in Serum or PlasmaOrdered By: Williams Coronado on 11-24-2022 ALP [Catalytic activity/Vol] 80 U/L 34-104 [facility] Aspartate aminotransferase [ Enzymatic activity/volume] in Serum or PlasmaOrdered By: Williams Coronado on 11-24-2022 AST [Catalytic activity/Vol] 27 U/L 13-39 [facility] Automated erythrocytes count in urine sediment (number/area)Ordered By: Williams Coronado on 11-24-2022 RBC Auto (Urine sed) [#/Area] None seen [HPF] 0-4 [facility] Automated leukocytes count i n urine sediment (number/area)Ordered By: Williams Coronado on 11-24-2022 WBC Auto (Urine sed) [#/Area] None seen [HPF] 0-4 [facility] Basophils Auto (Bld) [#/Vol] Ordered By: Williams Coronado on 11-24-2022 Basophils (Bld) [#/Vol] 0.1 10*3/uL 0.0-0.2 [facility] Basophils/100 WBC Auto (Bld) Ordered By: Williams Coronado on 11-24-2022 Basophils/100 WBC (Bld) 0.6 % . [facility] Bilirubin Test strip Ql (U)O rdered By: Williams Coronado on 11-24-2022 Bilirubin Ql (U) Negative Negative [facility] Bilirubin.total [Mass/volume ] in Serum or PlasmaOrdered By: Williams Coronado on 11-24-2022 Bilirubin [Mass/Vol] 0.4 mg/dL 0.3-1.0 [facility] C reactive protein [Mass/vol ume] in Serum or PlasmaOrdered By: Williams Coronado on 11-24-2022 CRP [Mass/Vol] < 0.5 mg/dL 0.0-0.5 [facility] Calcium [Mass/volume] in Ser um or PlasmaOrdered By: Williams Coronado on 11-24-2022 Calcium [Mass/Vol] 9.0 mg/dL 8.6-10.3 [facility] Carbon dioxide, total [Moles /volume] in Serum or PlasmaOrdered By: Williams Coronado on 11-24-2022 CO2 [Moles/Vol] 25.7 mmol/L 21.0-31.0 [facility] Chloride [Moles/volume] in S akiko or PlasmaOrdered By: Williams Coronado on 11-24-2022 Chloride [Moles/Vol] 103 mmol/L 98-107 [facility] Color Auto (U)Ordered By: Juan R Coronado on 11-24-2022 Color (U) Yellow Yellow [facility] Creatine kinase [Enzymatic a ctivity/volume] in Serum or PlasmaOrdered By: Wililams Coronado on 11-24-2022 CK [Catalytic activity/Vol] 92 U/L 30-223 [facility] Creatinine [Mass/volume] in Serum or PlasmaOrdered By: Williams Coronado on 11-24-2022 Creatinine [Mass/Vol] 0.96 mg/dL 0.70-1.30 [facility] Eosinophils Auto (Bld) [#/Vo l]Ordered By: Williams Coronado on 11-24-2022 Eosinophils (Bld) [#/Vol] 0.1 10*3/uL 0.0-0.45 [facility] Eosinophils/100 WBC Auto (Bl d)Ordered By: Williams Coornado on 11-24-2022 Eosinophils/100 WBC (Bld) 1.2 % . [facility] Erythrocyte distribution wid th Auto (RBC) [Ratio]Ordered By: Williams Coronado on 11-24-2022 Erythrocyte distribution width (RBC) [Ratio] 13.9 % 12.0-14.8 [facility] Erythrocyte sedimentation ra te by Photometric methodOrdered By: Williams Coronado on 11-24-2022 ESR Photometric method (Bld) [Velocity] 17 mm/hr 0-14 [facility] Globulin Calc (S) [Mass/Vol] Ordered By: Williams Coronado on 11-24-2022 Globulin (S) [Mass/Vol] 3.0 g/dL [facility] Glucose [Mass/volume] in Ser um or PlasmaOrdered By: Williams Coronado on 11-24-2022 Glucose [Mass/Vol] 80 mg/dL 70-100 [facility] Comment on above: ADA recommended refe rence rangeRandom Glucose Reference Range is dependent on time and content of last meal. Glucose of more than 200 mg/dL in a nonstressed, ambulatory subject supports the diagnosis of Diabetes Mellitus. Hematocrit Auto (Bld) [Volum e fraction]Ordered By: Williams Coronado on 11-24-2022 Hematocrit (Bld) [Volume fraction] 44.2 % 38.8-50.0 [facility] Hemoglobin [Mass/volume] in BloodOrdered By: Williams Coronado on 11-24-2022 Hemoglobin (Bld) [Mass/Vol] 14.9 g/dL 13.0-17.0 [facility] Ketones Auto test strip (U) [Mass/Vol]Ordered By: Williams Coronado on 11-24-2022 Ketones (U) [Mass/Vol] Negative Negative [facility] Laboratory - CoagulationOrde red By: Williams Coronado on 11-24-2022 PT Coag (PPP) [Time] 10.5 s 9.0-12.9 [facility] Laboratory - UrinalysisOrder ed By: Williams Coronado on 11-24-2022 Hyaline casts LM Ql (Urine sed) None seen [LPF] 0-8 [facility] Leukocytes [#/volume] correc quentin for nucleated erythrocytes in Blood by Automated counOrdered By: Williams Coronado on 11-24-2022 WBC corrected for nucl RBC Auto (Bld) [#/Vol] 8.5 10*3/uL 4.1-10.5 [facility] Lymphocytes Auto (Bld) [#/Vo l]Ordered By: Williams Coronado on 11-24-2022 Lymphocytes (Bld) [#/Vol] 2.8 10*3/uL 1.00-4.8 [facility] Lymphocytes/100 WBC Auto (Bl d)Ordered By: Williams Coronado on 11-24-2022 Lymphocytes/100 WBC (Bld) 32.7 % . [facility] MCH Auto (RBC) [Entitic mass ]Ordered By: Williams Coronado on 11-24-2022 MCH (RBC) [Entitic mass] 34.0 pg 27.5-35.2 [facility] MCHC Auto (RBC) [Mass/Vol]Or dered By: Williams Coronado on 11-24-2022 MCHC (RBC) [Mass/Vol] 33.6 g/dL 32.5-35.6 [facility] MCV Auto (RBC) [Entitic vol] Ordered By: Williams Coronado on 11-24-2022 MCV (RBC) [Entitic vol] 101.0 fL 83.5-101 [facility] Monocytes Auto (Bld) [#/Vol] Ordered By: Williams Coronado on 11-24-2022 Monocytes (Bld) [#/Vol] 0.9 10*3/uL 0.0-0.8 [facility] Monocytes/100 WBC Auto (Bld) Ordered By: Williams Coronado on 11-24-2022 Monocytes/100 WBC (Bld) 10.1 % . [facility] Neutrophils Auto (Bld) [#/Vo l]Ordered By: Williams Coronado on 11-24-2022 Neutrophils (Bld) [#/Vol] 4.7 10*3/uL 1.8-7.7 [facility] Neutrophils/100 WBC Auto (Bl d)Ordered By: Williams Coronado on 11-24-2022 Neutrophils/100 WBC (Bld) 55.4 % . [facility] Nitrite Test strip Ql (U)Ord ered By: Williams Coronado on 11-24-2022 Nitrite Ql (U) Negative Negative [facility] No Panel InformationOrdered By: Williams Coronado on 11-24-2022 Estimated GFR (CKD-EPI) > 60.0 mL/Min [facility] Creatinine Clearance (Chem N/A [facility] Nucleated erythrocytes [Pres ence] in Blood by Automated countOrdered By: Williams Coronado on 11-24-2022 Nucleated RBC Auto Ql (Bld) 0.1 /100{WBC} 0-0.5 [facility] Platelet mean volume Auto (B ld) [Entitic vol]Ordered By: Williams Coronado on 11-24-2022 Platelet mean volume (Bld) [Entitic vol] 9.0 fL 6.6-10.1 [facility] Platelet poor plasma interna tional normalized ratio (INR) by coagulation assay (relatOrdered By: Williams Coronado on 11-24-2022 INR Coag (PPP) [Relative time] 0.9 {INR} [facility] Comment on above: INR Therapeutic Rang [...] 11-24-2022 Platelets (Bld) [#/Vol] 217 10*3/uL 150-450 [facility] Potassium [Moles/volume] in Serum or PlasmaOrdered By: Williams Coronado on 11-24-2022 Potassium [Moles/Vol] 4.3 mmol/L 3.5-5.1 [facility] Protein Auto test strip (U) [Mass/Vol]Ordered By: Williams Coronado on 11-24-2022 Protein (U) [Mass/Vol] Negative Negative Fi [facility] Protein [Mass/volume] in Ser um or PlasmaOrdered By: Williams Coronado on 11-24-2022 Protein [Mass/Vol] 7.2 g/dL 6.4-8.9 [facility] RBC Auto (Bld) [#/Vol]Ordere d By: Williams Coronado on 11-24-2022 RBC (Bld) [#/Vol] 4.38 10*6/uL 3.90-5.60 [facility] Serum or plasma albumin/glob ulin mass ratioOrdered By: Williams Coronado on 11-24-2022 Albumin/Globulin [Mass ratio] 1.4 {ratio} [facility] Serum or plasma anion gap de terminationOrdered By: Williams Coronado on 11-24-2022 Anion gap [Moles/Vol] 13.6 mmol/L 6.0-15.0 [facility] Sodium [Moles/volume] in Ser um or PlasmaOrdered By: Williams Coronado on 11-24-2022 Sodium [Moles/Vol] 138 mmol/L 136-145 [facility] Specific gravity Auto test s trip (U) [Rel density]Ordered By: Williams Coronado on 11-24-2022 Specific gravity (U) [Rel density] 1.015 1.001-1.03 0 [facility] Squamous epithelial cells de tection in urine sediment by light microscopyOrdered By: Williams Coronado on 11-24-2022 Epithelial cells.squamous LM Ql (Urine sed) None seen [HPF] 0-2 [facility] Thyrotropin [Units/volume] i n Serum or PlasmaOrdered By: Williams Coronado on 11-24-2022 TSH Qn 2.20 m[IU]/L 0.45-5.33 [facility] Thyroxine (T4) free [Mass/vo lume] in Serum or PlasmaOrdered By: Williams Coronado on 11-24-2022 Free T4 [Mass/Vol] 0.81 ng/dL 0.61-1.12 [facility] Urea nitrogen [Mass/volume] in Serum or PlasmaOrdered By: Williams Coronado on 11-24-2022 Urea nitrogen [Mass/Vol] 13 mg/dL 7-25 [facility] Urine bacteria detection by automated methodOrdered By: Williams Coronado on 11-24-2022 Bacteria Auto Ql (U) None seen None Seen [facility] Urine clarity by refractomet ry automatedOrdered By: Williams Coronado on 11-24-2022 Clarity Refractometry automated (U) Clear Clear [facility] Urine glucose measurement by automated test strip (mass/volume)Ordered By: Williams Coronado on 11-24-2022 Glucose Auto test strip (U) [Mass/Vol] Normal mg/dL Normal [facility] Urine hemoglobin detection b y automated test stripOrdered By: Williams Coronado on 11-24-2022 Hemoglobin Auto test strip Ql (U) Negative Negative [facility] Urine leukocyte esterase det ection by automated test stripOrdered By: Williams Coronado on 11-24-2022 Leukocyte esterase Auto test strip Ql (U) Negative Negative [facility] Urobilinogen Auto test strip (U) [Mass/Vol]Ordered By: Williams Ivonne on 11-24-2022 Urobilinogen (U) [Mass/Vol] Normal mg/dL Normal [facility] WBC Auto (Bld) [#/Vol]Ordere d By: Williams Cullenrow on 11-24-2022 WBC (Bld) [#/Vol] 8.5 10*3/uL 4.1-10.5 [facility] pH Auto test strip (U)Ordere d By: Williams Ivonne on 11-24-2022 pH (U) 5.5 [pH] 5.0-9.0 [facility] ANASTASIIA by IFAon 10-18-2022 Antinuclear Antibodies, IFA Positive Abnormal [facility] Comment on above: Result Comment: Nega tive <1:80 Borderline 1:80 Positive >1:80 Performed By: #### C VDTBH #### [facility] [address] [place] [address] Dr. Kyra Patel Centriole Pattern Normal [facility] Comment on above: Performed By: #### C VDTBH #### [facility] [address] [place] [address] [address] Kyra Patel Centromere Pattern 1:320 Critically high [facility] Comment on above: Result Comment: ICAP nomenclature: AC-3 Performed By: #### C VDTBH #### [facility] [address] [place] [address] Dr. Kyra Patel Homogeneous Pattern 1:[address] [facility] Comment on above: Result Comment: ICAP nomenclature: AC-1 Performed By: #### C VDTBH #### [facility] [address] [place] [address] [address] Kyra Patel Midbody Pattern Normal [facility] Comment on above: Performed By: #### C VDTBH #### [facility] [address] [place] [address] Dr. Kyra Patel Note: Comment Normal [facility] Comment on above: Result Comment: For more [...] titers Nucleosomes, Histones Drug-induced SLE Speckled Sm, TECHNICIAN SEMICONDUCTOR DEVELOPMENT, SCL-70, SLE,MCTD,PSS (diffuse form), SS-A/SS-B Sjogrens Nucleolar SCL-70, PM-1/SCL High titers Scleroderma, PM/DM Centromere Centromere PSS (limited form) w/Crest syndrome variable Nuclear Dot Sp100,l60-cyhrls Primary Biliary Cirrhosis Nuclear GP210, Primary Biliary Cirrhosis Membrane aida A,B,C Performed By: #### C VDTBH #### [facility] [address] [place] [address] Dr. Kyra Patel Nuclear Dot Pattern Normal [facility] Comment on above: Performed By: #### C VDTBH #### [facility] [address] [place] [address] Dr. Kyra Patel Nuclear Membrane Pattern Normal [facility] Comment on above: Performed By: #### C VDTBH #### [facility] [address] [place] [address] Dr. Kyra Patel Nucleolar Pattern Normal [facility] Comment on above: Performed By: #### C VDTBH #### [facility] [address] [place] [address] Dr. Kyra Patel PCNA Pattern Normal [facility] Comment on above: Performed By: #### C VDTBH #### [facility] [address] [place] [address] Dr. Kyra Patel Speckled Pattern Normal [facility] Comment on above: Performed By: #### C VDTBH #### [facility] [address] [place] [address] Dr. Kyra Patel Spindle Apparatus Pattern Normal [facility] Comment on above: Performed By: #### C VDTBH #### [facility] [address] [place] [address] Dr. Kyra Patel RHEUMATOID FACTORon 10-17-19 23 RA Latex Turbid. 10.2 IU/mL Normal <14.0 [facility] Comment on above: Performed By: #### C VDTBH #### [facility] [address] [place] [address] Dr. Kyra Patel CBC AUTO DIFFon 10-15-2022 BASO # 0.1 103/ul Normal 0.0-0.1 [facility] Comment on above: Performed By: #### C BC #### [facility] [address] [place] [address] Dr. Kyra Patel Basophils/100 WBC (Bld) 0.9 % Normal 0.2-2.0 [facility] Comment on above: Performed By: #### C BC #### [facility] [address] [place] [address] Dr. Kyra Patel EO # 0.1 103/ul Normal 0.0-0.7 [facility] Comment on above: Performed By: #### C BC #### [facility] [address] [place] [address] Dr. Kyra Patel Eosinophils/100 WBC (Bld) 1.4 % Normal 0.9-7.0 [facility] Comment on above: Performed By: #### C BC #### [facility] [address] [place] [address] Dr. Kyra Patel Erythrocyte distribution width (RBC) [Ratio] 14.0 % Normal 11.0-15.0 [facility] Comment on above: Performed By: #### C BC #### [facility] [address] [place] [address] Dr. Kyra Patel Hematocrit (Bld) [Volume fraction] 40.9 % Critically low 42.0-54.0 [facility] Comment on above: Performed By: #### C BC #### [facility] [address] [place] [address] Dr. Kyra Patel Hemoglobin (Bld) [Mass/Vol] 14.2 g/dL Normal 14.0-18.0 [facility] Comment on above: Performed By: #### C BC #### [facility] [address] [place] [address] Dr. Kyra Patel IG # 0.03 10e3/ul Normal 0.00-0.03 [facility] Comment on above: Performed By: #### C BC #### [facility] [address] [place] [address] Dr. Kyra Patel IG % 0.4 % Normal 0.0-0.5 [facility] Comment on above: Performed By: #### C BC #### [facility] [address] [place] [address] Dr. Kyra Patel LYMPH # 2.5 103/ul Normal 1.2-3.8 [facility] Comment on above: Performed By: #### C BC #### [facility] [address] [place] [address] Dr. Kyra Patel Lymphocytes/100 WBC (Bld) 30.8 % Normal 20.5-60.0 [facility] Comment on above: Performed By: #### C BC #### [facility] [address] [place] [address] Dr. Kyra Patel MANUAL DIFF REQ NO Normal [facility] Comment on above: Performed By: #### C BC #### [facility] [address] [place] [address] Dr. Kyra Patel MCH (RBC) [Entitic mass] 34.7 pg Critically high 25.9-34.0 [facility] Comment on above: Performed By: #### C BC #### [facility] [address] [place] [address] Dr. Kyra Patel MCHC (RBC) [Mass/Vol] 34.7 g/dL Normal 29.9-35.2 [facility] Comment on above: Performed By: #### C BC #### [facility] [address] [place] [address] Dr. Kyra Patel MCV (RBC) [Entitic vol] 100.0 fL Critically high 80.0-94.0 [facility] Comment on above: Performed By: #### C BC #### [facility] [address] [place] [address] Dr. Kyra Patel MONO # 0.8 103/ul Normal 0.3-0.8 [facility] Comment on above: Performed By: #### C BC #### [facility] [address] [place] [address] Dr. Kyra Patel Monocytes/100 WBC (Bld) 9.5 % Normal 1.7-12.0 [facility] Comment on above: Performed By: #### C BC #### [facility] [address] [place] [address] Dr. Kyra Patel NEUT # 4.6 103/ul Normal 1.4-6.5 [facility] Comment on above: Performed By: #### C BC #### [facility] [address] [place] [address] Dr. Kyra Patel Neutrophils/100 WBC (Bld) 57.0 % Normal 43.0-75.0 [facility] Comment on above: Performed By: #### C BC #### [facility] [address] [place] [address] Dr. Kyra Patel Platelet mean volume (Bld) [Entitic vol] 9.4 fL Critically low 9.5-13.5 [facility] Comment on above: Performed By: #### C BC #### [facility] [address] [place] [address] Dr. Kyra Patel PLT 197 103/ul Normal 150-450 [facility] Comment on above: Performed By: #### C BC #### [facility] [address] [place] [address] Dr. Kyra Patel RBC 4.09 106/ul Critically low 4.70-6.10 [facility] Comment on above: Performed By: #### C BC #### [facility] [address] [place] [address] Dr. Kyra Patel WBC 8.1 103/ul Normal 4.0-11.0 [facility] Comment on above: Performed By: #### C BC #### [facility] [address] [place] [address] Dr. Kyra Patel PROF 14(COMP METB)on 023 Albumin [Mass/Vol] 3.6 g/dL Normal 3.4-5.0 [facility] Comment on above: Performed By: #### C MP, T4, TSH #### [facility] [address] [place] [address] Dr. Kyra Patel Albumin/Globulin [Mass ratio] 1.0 {ratio} Normal [facility] Comment on above: Performed By: #### C MP, T4, TSH #### [facility] [address] [place] [address] Dr. Kyra Patel ALP [Catalytic activity/Vol] 86 U/L Normal 46-116 [facility] Comment on above: Performed By: #### C MP, T4, TSH #### [facility] [address] [place] [address] Dr. Kyra Patel ALT [Catalytic activity/Vol] 60 U/L Normal 16-63 [facility] Comment on above: Performed By: #### C MP, T4, TSH #### [facility] [address] [place] [address] Dr. Kyra Patel Anion gap [Moles/Vol] 15.0 mmol/L Normal [facility] Comment on above: Performed By: #### C MP, T4, TSH #### [facility] [address] [place] [address] Dr. Kyra Patel AST [Catalytic activity/Vol] 44 U/L Critically high 15-37 [facility] Comment on above: Performed By: #### C MP, T4, TSH #### [facility] [address] [place] [address] Dr. Kyra Patel Bilirubin [Mass/Vol] 0.4 mg/dL Normal 0.2-1.0 [facility] Comment on above: Performed By: #### C MP, T4, TSH #### [facility] [address] [place] [address] Dr. Kyra Patel Calcium [Mass/Vol] 8.7 mg/dL Normal 8.5-10.1 [facility] Comment on above: Performed By: #### C MP, T4, TSH #### [facility] [address] [place] [address] Dr. Kyra Patel Chloride [Moles/Vol] 103 mmol/L Normal 98-107 [facility] Comment on above: Performed By: #### C MP, T4, TSH #### [facility] [address] [place] [address] Dr. Kyra Patel CO2 [Moles/Vol] 24.2 mmol/L Normal 21.0-32.0 [facility] Comment on above: Performed By: #### C MP, T4, TSH #### [facility] [address] [address] [address] Kyra Patel Creatinine [Mass/Vol] 0.94 mg/dL Normal 0.70-1.30 [facility] Comment on above: Performed By: #### C MP, T4, TSH #### [facility] [address] [address] [address] Kyra Patel EGFR-AF ARMENIAN >60 Normal >=60 [facility] Comment on above: Performed By: #### C MP, T4, TSH #### [facility] [address] [address] [address] Kyra Patel EGFR-NON AF ARMENIAN >60 Normal >=60 [facility] Comment on above: Performed By: #### C MP, T4, TSH #### [facility] [address] [address] [address] Kyra Patel Globulin (S) [Mass/Vol] 3.5 g/dL Normal [facility] Comment on above: Performed By: #### C MP, T4, TSH #### [facility] [address] [address] [address] Kyra Patel Glucose [Mass/Vol] 96 mg/dL Normal 74-106 [facility] Comment on above: Performed By: #### C MP, T4, TSH #### [facility] [address] [address] [address] Kyra Patel Potassium [Moles/Vol] 4.2 mmol/L Normal 3.5-5.1 [facility] Comment on above: Performed By: #### C MP, T4, TSH #### [facility] [address] [address] [address] Kyra Patel Protein [Mass/Vol] 7.1 g/dL Normal 6.4-8.2 [facility] Comment on above: Performed By: #### C MP, T4, TSH #### [facility] [address] [address] [address] Kyra Patel Sodium [Moles/Vol] 138 mmol/L Normal 136-145 [facility] Comment on above: Performed By: #### C MP, T4, TSH #### [facility] [address] [place] [address] Dr. Kyra Patel Urea nitrogen [Mass/Vol] 14.0 mg/dL Normal 7.0-18.0 [facility] Comment on above: Performed By: #### C MP, T4, TSH #### [facility] [address] [place] [address] Dr. Kyra Patel Urea nitrogen/Creatinine [Mass ratio] 14.9 mg/mg Normal [facility] Comment on above: Performed By: #### C MP, T4, TSH #### [facility] [address] [place] [address] Dr. Kyra Patel SED RATE [facility] 2022 SED RATE 4 mm/hr Normal <=15 [facility] Comment on above: Performed By: #### S EDR #### [facility] [address] [place] [address] Dr. Kyra Patel T4on 10-15-2022 T4 [Mass/Vol] 6.20 ug/dL Normal 4.50-12.10 [facility] Comment on above: Performed By: #### C MP, T4, TSH #### [facility] [address] [place] [address] Dr. Kyra Patel TSHon 10-15-2022 TSH 1.451 uIU/mL Normal 0.358-3.[address] [facility] Comment on above: Performed By: #### C MP, T4, TSH #### [facility] [address] [place] [address] Dr. Kyra Patel Covid-19 PCR ([facility])on 06-25 SARS-CoV-2 (COVID-19) RNA COLBY+probe Ql (Unsp spec) Not detected Normal NOT DETECTED [facility] Comment on above: Result Comment: This test is not yet approved or cleared by the [place] FDA. When there are no FDA-approved or cleared tests available, and other criteria are met, FDA can make tests available under an emergency access mechanism called an Emergency Use Authorization (EUA). The EUA for this test is supported by the [place] of Health and Human Service's (HHS's) declaration [...] SARS-CoV-2. Performed By: #### C VDTB #### [facility] [address] [place] [address] Dr. Kyra Patel Covid-19 PCR ([facility])on 06-25 SARS-CoV-2 (COVID-19) RNA COLBY+probe Ql (Unsp spec) Detected Critically abnormal NOT DETECTED [facility] Comment on above: Result Comment: This test is not yet approved or cleared by the [place] FDA. When there are no FDA-approved or cleared tests available, and other criteria are met, FDA can make tests available under an emergency access mechanism called an Emergency Use Authorization (EUA). The EUA for this test is supported by the [place] of Health and Human Service's (HHS's) declaration [...] longer be used). Performed By: #### C VDTB #### [facility] [address] [place] [address] Dr. Kyra Patel CBC AUTO DIFFon 01-28-2022 BASO # 0.1 103/ul Normal 0.0-0.1 [facility] Comment on above: Performed By: #### C BC #### [facility] [address] [address] [address] Kyra Patel Basophils/100 WBC (Bld) 0.8 % Normal 0.2-2.0 [facility] Comment on above: Performed By: #### C BC #### [facility] [address] [address] [address] Kyra Patel EO # 0.2 103/ul Normal 0.0-0.7 [facility] Comment on above: Performed By: #### C BC #### [facility] [address] [address] [address] Kyra Patel Eosinophils/100 WBC (Bld) 2.1 % Normal 0.9-7.0 [facility] Comment on above: Performed By: #### C BC #### [facility] [address] [place] [address] Dr. Kyra Patel Erythrocyte distribution width (RBC) [Ratio] 13.7 % Normal 11.0-15.0 [facility] Comment on above: Performed By: #### C BC #### [facility] [address] [place] [address] Dr. Kyra Patel Hematocrit (Bld) [Volume fraction] 43.1 % Normal 42.0-54.0 [facility] Comment on above: Performed By: #### C BC #### [facility] [address] [place] [address] Dr. Kyra Patel Hemoglobin (Bld) [Mass/Vol] 14.7 g/dL Normal 14.0-18.0 [facility] Comment on above: Performed By: #### C BC #### [facility] [address] [place] [address] Dr. Kyra Patel IG # 0.05 10e3/ul Critically high 0.00-0.03 [facility] Comment on above: Performed By: #### C BC #### [facility] [address] [place] [address] Dr. Kyra Patel IG % 0.6 % Critically high 0.0-0.5 [facility] Comment on above: Performed By: #### C BC #### [facility] [address] [place] [address] Dr. Kyra Patel LYMPH # 2.4 103/ul Normal 1.2-3.8 [facility] Comment on above: Performed By: #### C BC #### [facility] [address] [place] [address] Dr. Kyra Patel Lymphocytes/100 WBC (Bld) 27.4 % Normal 20.5-60.0 [facility] Comment on above: Performed By: #### C BC #### [facility] [address] [place] [address] Dr. Kyra Patel MANUAL DIFF REQ NO Normal [facility] Comment on above: Performed By: #### C BC #### [facility] [address] [place] [address] Dr. Kyra Patel MCH (RBC) [Entitic mass] 34.0 pg Normal 25.9-34.0 [facility] Comment on above: Performed By: #### C BC #### [facility] [address] [place] [address] Dr. Kyra Patel MCHC (RBC) [Mass/Vol] 34.1 g/dL Normal 29.9-35.2 [facility] Comment on above: Performed By: #### C BC #### [facility] [address] [place] [address] Dr. Kyra Patel MCV (RBC) [Entitic vol] 99.8 fL Critically high 80.0-94.0 [facility] Comment on above: Performed By: #### C BC #### [facility] [address] [place] [address] Dr. Kyra Patel MONO # 0.9 103/ul Critically high 0.3-0.8 [facility] Comment on above: Performed By: #### C BC #### [facility] [address] [place] [address] Dr. Kyra Patel Monocytes/100 WBC (Bld) 9.8 % Normal 1.7-12.0 [facility] Comment on above: Performed By: #### C BC #### [facility] [address] [address] [address] Kyra Patel NEUT # 5.3 103/ul Normal 1.4-6.5 [facility] Comment on above: Performed By: #### C BC #### [facility] [address] [id number] Kyra Patel Neutrophils/100 WBC (Bld) 59.3 % Normal 43.0-75.0 [facility] Comment on above: Performed By: #### C BC #### [facility] [address] [address] [address] Kyra Patel Platelet mean volume (Bld) [Entitic vol] 9.8 fL Normal 9.5-13.5 [facility] Comment on above: Performed By: #### C BC #### [facility] [address] [place] [address] Dr. Kyra Patel PLT 195 103/ul Normal 150-450 [facility] Comment on above: Performed By: #### C BC #### [facility] [address] [place] [address] Dr. Kyra Patel RBC 4.32 106/ul Critically low 4.70-6.10 [facility] Comment on above: Performed By: #### C BC #### [facility] [address] [place] [address] Dr. Kyra Patel WBC 8.9 103/ul Normal 4.0-11.0 [facility] Comment on above: Performed By: #### C BC #### [facility] [address] [place] [address] Dr. Kyra Patel DIRECT LDLon 01-28-2022 Cholesterol in LDL [Mass/Vol] 135 mg/dL Normal [facility] Comment on above: Performed By: #### D LDL, CMP, LIPID #### [facility] [address] [place] [address] Dr. Kyra Patel DLDL NORMAL SEE BELOW Normal [facility] Comment on above: Result Comment: <100 mg/dl OPTIMAL 100 - 129 mg/dl NEAR OR ABOVE OPTIMAL 130 - 159 mg/dl BORDERLINE HIGH 160 - 189 mg/dl HIGH >190 mg/dl VERY HIGH Performed By: #### D LDL, CMP, LIPID #### [facility] [address], [place] [address] Dr. Kyra Patel LIPID PROFILEon 01-28-2022 CHOL-HDL RATIO NORM SEE BELOW Normal [facility] Comment on above: Result Comment: 3.3 - 4.4 LOW RISK 4.4 - 7.1 AVERAGE RISK 7.1 - 11.0 MODERATE RISK >11.0 HIGH RISK Performed By: #### D LDL, CMP, LIPID #### [facility] [address] [address] [address] Kyra Patel Cholesterol [Mass/Vol] 277 mg/dL Critically high <=200 [facility] Comment on above: Performed By: #### D LDL, CMP, LIPID #### [facility] [address] [address] [address] Kyra Paetl Cholesterol in HDL [Mass/Vol] 36 mg/dL Critically low 40-60 [facility] Comment on above: Performed By: #### D LDL, CMP, LIPID #### [facility] [address] [address] [address] Kyra Patel Cholesterol in LDL [Mass/Vol] 81.6 mg/dL Normal [facility] Comment on above: Performed By: #### D LDL, CMP, LIPID #### [facility] [address], [place] [address] Dr. Kyra Patel Cholesterol.total/Chol esterol in HDL [Mass ratio] 7.7 {ratio} Normal [facility] Comment on above: Performed By: #### D LDL, CMP, LIPID #### [facility] [address], [place] [address] Dr. Kyra Patel HDL NORMAL > or = 60 mg/dl - LO W CARDIOVASCULAR RISK <40 mg/dl - HIGH CARDIOVASCULAR RISK Normal [facility] Comment on above: Performed By: #### D LDL, CMP, LIPID #### [facility] [address] [place], [place] [address] Dr. Kyra Patel LDL CALC NORMAL SEE BELOW Normal [facility] Comment on above: Result Comment: <100 mg/dl OPTIMAL 100 - 129 mg/dl NEAR OR ABOVE OPTIMAL 130 - 159 mg/dl BORDERLINE HIGH 160 - 189 mg/dl HIGH >190 mg/dl VERY HIGH Performed By: #### D LDL, CMP, LIPID #### [facility] [address] [address] [address] Kyra Patel Triglyceride [Mass/Vol] 797 mg/dL Critically high <=150 [facility] Comment on above: Performed By: #### D LDL, CMP, LIPID #### [facility] [address] [address] [address] Kyra Patel VLDL CALC 159.4 mg/dL Normal [facility] Comment on above: Performed By: #### D LDL, CMP, LIPID #### [facility] [address] [place] [address] Dr. Kyra Patel PROF 14(COMP METB)on 022 Albumin [Mass/Vol] 3.5 g/dL Normal 3.4-5.0 [facility] Comment on above: Performed By: #### D LDL, CMP, LIPID #### [facility] [address] [place] [address] Dr. Kyra Patel Albumin/Globulin [Mass ratio] 0.9 {ratio} Normal [facility] Comment on above: Performed By: #### D LDL, CMP, LIPID #### [facility] [address] [place] [address] Dr. Kyra Patel ALP [Catalytic activity/Vol] 78 U/L Normal 46-116 [facility] Comment on above: Performed By: #### D LDL, CMP, LIPID #### [facility] [address] [place] [address] Dr. Kyra Patel ALT [Catalytic activity/Vol] 50 U/L Normal 16-63 [facility] Comment on above: Performed By: #### D LDL, CMP, LIPID #### [facility] [address] [place] [address] Dr. Kyra Patel Anion gap [Moles/Vol] 13.7 mmol/L Normal [facility] Comment on above: Performed By: #### D LDL, CMP, LIPID #### [facility] [address] [address] [address] Kyra Patel AST [Catalytic activity/Vol] 30 U/L Normal 15-37 [facility] Comment on above: Performed By: #### D LDL, CMP, LIPID #### [facility] [address] [place] [address] Dr. Kyra Patel Bilirubin [Mass/Vol] 0.3 mg/dL Normal 0.2-1.0 [facility] Comment on above: Performed By: #### D LDL, CMP, LIPID #### [facility] [address] [place] [address] Dr. Kyra Patel Calcium [Mass/Vol] 8.6 mg/dL Normal 8.5-10.1 [facility] Comment on above: Performed By: #### D LDL, CMP, LIPID #### [facility] [address] [place] [address] Dr. Kyra Patel Chloride [Moles/Vol] 104 mmol/L Normal 98-107 [facility] Comment on above: Performed By: #### D LDL, CMP, LIPID #### [facility] [address] [place] [address] Dr. Kyra Patel CO2 [Moles/Vol] 23.8 mmol/L Normal 21.0-32.0 [facility] Comment on above: Performed By: #### D LDL, CMP, LIPID #### [facility] [address] [place] [address] Dr. Kyra Patel Creatinine [Mass/Vol] 1.02 mg/dL Normal 0.70-1.30 [facility] Comment on above: Performed By: #### D LDL, CMP, LIPID #### [facility] [address] [place] [address] Dr. Kyra Patel EGFR-AF ARMENIAN >60 Normal >=60 [facility] Comment on above: Performed By: #### D LDL, CMP, LIPID #### [facility] [address] [place] [address] Dr. Kyra Patel EGFR-NON AF ARMENIAN >60 Normal >=60 [facility] Comment on above: Performed By: #### D LDL, CMP, LIPID #### [facility] [address] [address] [address] Kyra Patel Globulin (S) [Mass/Vol] 3.7 g/dL Normal [facility] Comment on above: Performed By: #### D LDL, CMP, LIPID #### [facility] [address] [address] [address] Kyra Patel Glucose [Mass/Vol] 113 mg/dL Critically high 74-[address] [facility] Comment on above: Performed By: #### D LDL, CMP, LIPID #### [facility] [address] [address] [address] Kyra Patel Potassium [Moles/Vol] 3.5 mmol/L Normal 3.5-5.1 [facility] Comment on above: Performed By: #### D LDL, CMP, LIPID #### [facility] [address] [address] [address] Kyra Patel Protein [Mass/Vol] 7.2 g/dL Normal 6.4-8.2 [facility] Comment on above: Performed By: #### D LDL, CMP, LIPID #### [facility] [address] [address] [address] Kyra Patel Sodium [Moles/Vol] 138 mmol/L Normal 136-145 [facility] Comment on above: Performed By: #### D LDL, CMP, LIPID #### [facility] [address] [address] [address] Kyra Patel Urea nitrogen [Mass/Vol] 12.0 mg/dL Normal 7.0-18.0 [facility] Comment on above: Performed By: #### D LDL, CMP, LIPID #### [facility] [address] [address] [address] Kyra Patel Urea nitrogen/Creatinine [Mass ratio] 11.8 mg/mg Normal [facility] Comment on above: Performed By: #### D LDL, CMP, LIPID #### [facility] [address] [address] [address] Kyra Patel Vital Signs Date Time Vital Sign Value Performing Clinician Facility 08-01-2024 08:10-0500 Blood Pressure Location Silvestre Cruz [facility] [place] 08-01-2024 08:10-0500 Diastolic blood pressure 94 mm[Hg] Silvestre NILL [facility] [place] 08-01-2024 08:10-0500 Heart rate 89 /min Silvestre NILL [facility] [place] 08-01-2024 08:10-0500 Respiratory rate 16 /min Silvestre NILL [facility] [place] 08-01-2024 08:10-0500 Systolic blood pressure 149 mm[Hg] Silvestre NILL [facility] [place] 06-15-2024 09:01-0500 Body height 182.88 cm Agustina Benitez [employer] Work Phone: [facility] 06-15-2024 09:01-0500 Body mass index (BMI) [Ratio] 27.8 kg/m2 Agustina Benitez [employer] Work Phone: [facility] 06-15-2024 09:01-0500 Body temperature 98.1 [degF] Agustina Benitez [employer] Work Phone: [facility] 06-15-2024 09:01-0500 Body weight 92.98 kg Agustina Benitez [employer] Work Phone: [facility] 06-15-2024 09:01-0500 Diastolic blood pressure 82 mm[Hg] Agustina Benitez [employer] Work Phone: [facility] 06-15-2024 09:01-0500 Heart rate 84 /min Agustina Benitez [employer] Work Phone: [facility] 06-15-2024 09:01-0500 Respiratory rate 20 /min Agustina Benitez [employer] Work Phone: [facility] 06-15-2024 09:01-0500 SaO2% (BldA) [Mass fraction] 97 % Agustinakaren Bermanmer [employer] Work Phone: [facility] 06-15-2024 09:01-0500 Systolic blood pressure 155 mm[Hg] Agustinakaren Bermanmer [employer] Work Phone: [facility] 02-24-2024 08:57-0400 Body height 182.88 cm [employer] Agustina Juliana Work Phone: [facility] 02-24-2024 08:57-0400 Body mass index (BMI) [Ratio] 28.5 kg/m2 [employer] Agustina Juliana Work Phone: [facility] 02-24-2024 08:57-0400 Body temperature 98.3 [degF] [employer] Agustina Juliana Work Phone: [facility] 02-24-2024 08:57-0400 Body weight 95.25 kg [employer] Agustina Juliana Work Phone: [facility] 02-24-2024 08:57-0400 Diastolic blood pressure 90 mm[Hg] [employer] Agustina Juliana Work Phone: [facility] 02-24-2024 08:57-0400 Heart rate 81 /min [employer] Agustina Juliana Work Phone: [facility] 02-24-2024 08:57-0400 Respiratory rate 20 /min [employer] Agustina Juliana Work Phone: [facility] 02-24-2024 08:57-0400 SaO2% (BldA) [Mass fraction] 97 % [employer] Agustina Juliana Work Phone: [facility] 02-24-2024 08:57-0400 Systolic blood pressure 144 mm[Hg] [employer] Agustina Juliana Work Phone: [facility] 12-23-2023 08:57-0400 Body height 182.88 cm DO Keagan House Work Phone: [facility] 12-23-2023 08:57-0400 Body mass index (BMI) [Ratio] 28.7 kg/m2 DO Keagan House Work Phone: [facility] 12-23-2023 08:57-0400 Body temperature 98.6 [degF] DO Keagan House Work Phone: [facility] 12-23-2023 08:57-0400 Body weight 96.16 kg DO Keagan House Work Phone: [facility] 12-23-2023 08:57-0400 Diastolic blood pressure 90 mm[Hg] DO Keagan House Work Phone: [facility] 12-23-2023 08:57-0400 Heart rate 92 /min DO Keagan House Work Phone: [facility] 12-23-2023 08:57-0400 Respiratory rate 20 /min DO Keagan House Work Phone: [facility] 12-23-2023 08:57-0400 SaO2% (BldA) [Mass fraction] 95 % DO Keagan House Work Phone: [facility] 12-23-2023 08:57-0400 Systolic blood pressure 148 mm[Hg] DO Keagan House Work Phone: [facility] 10-19-2023 07:21-0400 Body height 182.88 cm DO Keagan House Work Phone: [facility] 10-19-2023 07:21-0400 Body mass index (BMI) [Ratio] 27.1 kg/m2 DO Keagan House Work Phone: [facility] 10-19-2023 07:21-0400 Body weight 90.71 kg DO Keagan House Work Phone: [facility] 10-19-2023 07:10-0400 Body temperature 97.2 [degF] DO Keagan House Work Phone: [facility] 10-19-2023 07:10-0400 Diastolic blood pressure 84 mm[Hg] DO Keagan House Work Phone: [facility] 10-19-2023 07:10-0400 Heart rate 87 /min DO Keagan House Work Phone: [facility] 10-19-2023 07:10-0400 Respiratory rate 20 /min DO Keagan House Work Phone: [facility] 10-19-2023 07:10-0400 Systolic blood pressure 149 mm[Hg] DO Keagan House Work Phone: [facility] 07-22-2023 07:58-0500 Body height 182.88 cm DO Keagan House Work Phone: [facility] 07-22-2023 07:58-0500 Body mass index (BMI) [Ratio] 27.1 kg/m2 DO Keagan House Work Phone: [facility] 07-22-2023 07:58-0500 Body weight 90.71 kg DO Keagan House Work Phone: [facility] 07-22-2023 07:45-0500 Diastolic blood pressure 81 mm[Hg] DO Keagan House Work Phone: [facility] 07-22-2023 07:45-0500 Heart rate 84 /min DO Keagan House Work Phone: [facility] 07-22-2023 07:45-0500 Respiratory rate 20 /min DO Keagan House Work Phone: [facility] 07-22-2023 07:45-0500 Systolic blood pressure 146 mm[Hg] DO Keagan House Work Phone: [facility] 07-07-2023 07:19-0500 Body temperature 97.8 [degF] DO Keagan House Work Phone: [facility] 06-18-2023 12:47-0500 Diastolic blood pressure 77 mm[Hg] DO Keagan House Work Phone: [facility] 06-18-2023 12:47-0500 Heart rate 78 /min DO Keagan House Work Phone: [facility] 06-18-2023 12:47-0500 Respiratory rate 18 /min DO Keagan House Work Phone: [facility] 06-18-2023 12:47-0500 SaO2% (BldA) [Mass fraction] 98 % DO Keagan House Work Phone: [facility] 06-18-2023 12:47-0500 Systolic blood pressure 131 mm[Hg] DO Keagan House Work Phone: [facility] 06-18-2023 05:13-0500 Body temperature 98 [degF] DO Keagan Oro Work Phone: [facility] 06-18-2023 05:12-0500 Body height 182.88 cm DO Keagan Oro Work Phone: [facility] 06-18-2023 05:12-0500 Body weight 90.71 kg DO Keagan Oro Work Phone: [facility] 05-31-2023 09:45-0500 Body height 182.88 cm Tony Lieberman Other [facility] Other 03-22-2023 10:30-0400 Body height 182.88 cm Tony Lieberman Other [facility] Other 03-22-2023 10:30-0400 Body mass index (BMI) [Ratio] 26.58 kg/m2 Tony Lieberman Other [facility] Other 03-22-2023 10:30-0400 Body temperature 98.2 [degF] Tony Lieberman Other [facility] Other 03-22-2023 10:30-0400 Body weight 88.91 kg Tony Lieberman Other [facility] Other 03-22-2023 10:30-0400 Diastolic blood pressure 72 mm[Hg] Tony Lieberman Other [facility] Other 03-22-2023 10:30-0400 Respiratory rate 20 /min Tony Lieberman Other [facility] Other 03-22-2023 10:30-0400 SaO2% (BldA) [Mass fraction] 96 % Tony Lieberman Other [facility] Other 03-22-2023 10:30-0400 Systolic blood pressure 120 mm[Hg] Tony Lieberman Other [employer] Other Encounters Encounter Date Encounter Type Care Provider Facility Start: 08-08-2024 End: 08-08-2024 ambulatory MALLORIE [facility] Start: 08-01-2024 End: 08-01-2024 ambulatory Silvestre R JESSICAL Facility:[facility] Start: 08-01-2024 End: 08-01-2024 Patient encounter procedure Silvestre R NILL [facility] [place] Start: 07-24-2024 ambulatory Silvestre LOPEZL Facility:[facility] Start: 06-15-2024 End: 06-15-2024 ambulatory Agustina Benitez [employer] Work Phone: [facility] Work Phone: Start: 06-15-2024 End: 06-15-2024 Patient encounter procedure Agustina Benitez [employer] Work Phone: [facility] Work Phone: Start: 06-12-2024 ambulatory Silvestre NILL Facility:[facility] Start: 04-28-2024 End: 04-28-2024 Patient encounter procedure [employer] Agustinakaren Benitez Work Phone: [facility] [place] Work Phone: Start: 04-28-2024 End: 04-28-2024 ambulatory Efren Esteves Facility:[facility] Start: 02-24-2024 End: 02-24-2024 ambulatory [employer] Agustina Michaela Juliana Work Phone: [facility] Work Phone: Start: 02-24-2024 End: 02-24-2024 Patient encounter procedure [employer] Agustinakaren Bermanmer Work Phone: [facility] Work Phone: Start: 01-17-2024 Non-patient / Non-visit [employer] Agustinakaren Bermanmer Work Phone: [facility] Work Phone: Start: 01-17-2024 End: 01-17-2024 Patient encounter procedure [employer] Agustinakaren Bermanmer Work Phone: [facility]-Electrodiagnostics Work Phone: Start: 01-17-2024 End: 01-17-2024 ambulatory [employer] Agustinakaren Benitez Work Phone: [facility] Work Phone: Start: 12-23-2023 End: 12-23-2023 ambulatory DO Keagan House Work Phone: [facility] Work Phone: Start: 12-23-2023 End: 12-23-2023 Patient encounter procedure DO Keagan House Work Phone: [facility] Work Phone: Start: 10-19-2023 End: 10-19-2023 ambulatory DO Keagan House Work Phone: [facility] Work Phone: Start: 10-19-2023 End: 10-19-2023 Discharged Recurring DO Keagan House Work Phone: [facility] [place] Work Phone: Start: 07-22-2023 End: 07-22-2023 Patient encounter procedure DO Keagan House Work Phone: [facility]Res[facility] Work Phone: Start: 07-22-2023 End: 07-22-2023 ambulatory DO Keagan House Work Phone: [facility] Work Phone: Start: 07-22-2023 Registered Recurring DO Waqar s House Work Phone: [facility] [place] Work Phone: Start: 06-18-2023 End: 06-18-2023 Emergency department patient visit DO Keagan House Work Phone: [facility]Emergency [facility] Work Phone: Start: 05-31-2023 End: 05-31-2023 ambulatory Kamal Chaban Other [employer] Other Start: 05-31-2023 Office outpatient visit 15 minutes Drewrojas Vegahenry [facility] Start: 05-21-2023 End: 05-21-2023 Patient encounter procedure DO Keagan House Work Phone: [facility] [place] Work Phone: Start: 05-21-2023 End: 05-21-2023 ambulatory DO Keagan House Work Phone: [facility] Work Phone: Start: 03-22-2023 End: 03-22-2023 ambulatory Kamal Chaban Other [employer] Other Start: 03-22-2023 Office outpatient ne w 45 minutes Tony Lieberman [facility] Start: 12-10-2022 ambulatory Facility:[id number] Start: 11-24-2022 End: 11-24-2022 ambulatory MD Johnny Coronado Work Phone: [facility] Work Phone: Start: 11-24-2022 End: 11-24-2022 Patient encounter procedure MD Johnny Coronado Work Phone: [facility]-Lab [address] Work Phone: Start: 10-18-2022 Encounter for genera l adult medical examination without abnormal findings DR KEAGAN ORO [facility] Start: 10-15-2022 End: 10-16-[address] KEAGAN [...] Start: 04-28-2024 CT of chest without contrast [employer] Agustina Benitez Work Phone: Start: 05-21-2023 CT of chest without contrast DO Keagan Oro Work Phone: Cholecystectomy Silvestre YANES Plan of Treatment Date Care Activity Detail Author Start: 11-24-2022 Hemolytic complement CH50 level [facility] Start: 11-24-2022 [facility] Lupus anticoagulant [Interpretation] in Platelet poor plasma [facility] Patient referral [facility] Work Phone: Thrombin time [facility] US Heart Transthoracic [facility] Immunizations Immunization Date Immunization Notes Care Provider Fa cility 05-01-2021 SARS-CoV-2 (COVID-19 ) mRNA BNT-162b2 paul YANES [facility] Comment on above: Result Comment: 2023: [id number] 04-10-2021 SARS-CoV-2 (COVID-19 ) mRNA BNT-162b2 paul YANES [facility] Comment on above: Result Comment: 2023: [id number] Payers Date Payer Category Payer Unknown [id number] 2023 Self-pay 1975 Unknown [id number] 2.16.84 [id number] 1975 Unknown [id number] 2.16.84 [id number] 1973 Unknown [id number] 2.16.84 [id number] 1973 Unknown [id number] 2.16.84 [id number] 1973 Unknown [id number] 2.16. [id number] 1973 Unknown [id number] 2.16.8 [id number] 1959 Unknown [id number] Unknown [id number] 2.16.8 [id number] Unknown [id number] 2.16.8 [id number] Unknown [id number] 2.16.8 [id number] Unknown [id number] 2.16.8 [id number] Unknown [id number] 2.16.8 [id number] Unknown [id number] 2.16.8 [id number] Social History Date Type Detail Facility Tobacco smoking stat [facility] Unknown if ever smoked [facility] Work Phone: Start: 1975 Sex Assigned At Male F [facility] Sex Assigned At [facility] Start: 06-18-2023 Tobacco smoking stat [facility] Smoker (finding) [facility] Start: 07-22-2023 End: 10-19-2023 Tobacco smoking status NHIS Ex-smoker (finding) [facility] Start: 12-23-2023 End: 02-24-2024 Tobacco smoking status [facility] Current some day smoker [facility] Start: 06-15-2024 Sex Male (finding) [facility] Start: 08-01-2024 Tobacco smoking status Light t obacco smoker (finding) [facility] [place] Tobacco smoking status Never [facility] Functional Status Date Assessment Result Facility 08-01-2024 Functional Status N/A [facility] [place] Clinical Notes 03-22-2023 to 08-08-2024 Note Date & Type Note Facility 08-08-2024 Note Subjective Patient ID: Bebo Thorne is a 48 y.o. male who presents for Follow-up (Raynaud's w gangrene, colonoscopy scheduled 08/22 ask if can be off plavix/Inpatient 06/30/23). HPI 48 y.o. male with history of Raynaud's and gangrene to left 5th finger presents for follow up. History of CTA and CARLOS PVR in May 2023 which did not demonstrate evidence of arterial occlusive disease. He has a small fissure to his right pointer finger which is non infected appearing. He has started smoking again. Explained that smoking causes vasoconstriction which worsens Raynaud's, puts him at increased risk for ulcers and pain. He takes a calcium channel reyes, plavix and asa and has not noticed a difference in pain in his hands with Raynaud's flares. He has an upcoming colonoscopy and is ok to stop plavix 5 days before colonoscopy. He states he has a rash on his arms and his back which itches. He denies starting new medications. Rash to BUE including hands, BLE and back. He has some small varicosities to BLE as well as hemosiderin staining. He denies heaviness, aches and fatigue to BLE. There is a small dry ulcer to lateral LLE. He was instructed to follow up with dermatology at last visit and no appointment was made. Review of Systems Constitutional: Negative for activity change, appetite change, chills, diaphoresis, fatigue, fever and unexpected weight change. HENT: Negative for congestion, dental problem, drooling, ear discharge, ear pain, facial swelling, hearing loss, mouth sores, nosebleeds, postnasal drip, rhinorrhea, sinus pressure, sinus pain, sneezing, sore throat, tinnitus, trouble swallowing and voice change. Eyes: Negative for photophobia, pain, discharge, redness, itching and visual disturbance. Respiratory: Negative for apnea, cough, choking, chest tightness, shortness of breath, wheezing and stridor. Cardiovascular: Positive for leg swelling. Negative for chest pain and palpitations. Gastrointestinal: Positive for diarrhea. Negative for abdominal distention, abdominal pain, anal bleeding, blood in stool, constipation, nausea, rectal pain and vomiting. Endocrine: Positive for cold intolerance. Negative for heat intolerance, polydipsia, polyphagia and polyuria. Genitourinary: Negative for decreased urine volume, difficulty urinating, dysuria, enuresis, flank pain, frequency, genital sores, hematuria, penile discharge, penile pain, penile swelling, scrotal swelling, testicular pain and urgency. Musculoskeletal: Positive for back pain. Negative for arthralgias, gait problem, joint swelling, myalgias and neck pain. Skin: Positive for rash. Negative for color change, pallor and wound. B hands , LE and lower back Allergic/Immunologic: Negative for environmental allergies, food allergies and immunocompromised state. Neurological: Negative for dizziness, tremors, seizures, syncope, facial asymmetry, speech difficulty, weakness, light-headedness, numbness and headaches. Hematological: Negative for adenopathy. Bruises/bleeds easily. Psychiatric/Behavioral: Negative for agitation, behavioral problems, confusion, decreased concentration, dysphoric mood, hallucinations, self-injury, sleep disturbance and suicidal ideas. The patient is not nervous/anxious and is not hyperactive. Objective Visit Vitals BP 119/78 (BP Location: Right arm, Patient Position: Sitting) Pulse 85 Temp 36.8 ???C (98.2 ???F) (Temporal) Physical Exam Vitals reviewed. Constitutional: Appearance: Normal appearance. HENT: Head: Normocephalic and atraumatic. Eyes: Extraocular Movements: Extraocular movements intact. Cardiovascular: Rate and Rhythm: Normal rate. Pulmonary: Effort: Pulmonary effort is normal. Musculoskeletal: General: Normal range of motion. Cervical back: Normal range of motion. Skin: General: Skin is warm and dry. Neurological: Mental Status: He is alert and oriented to person, place, and time. Psychiatric: Mood and Affect: Mood normal. Behavior: Behavior normal. Assessment/Plan #Raynaud's Disease Continue calcium channel blockers, plavix Started smoking again; work towards smoking cessation Venous reflux studies and follow up at [facility] No diagnosis found. No orders of the defined types were placed in this encounter. No results found for this or any previous visit (from the past 36 hour(s)). No follow-ups on file. [facility] 08-01-2024 Note General Surgery Offi ce/Clinic Note Chief Complaint consultation for positive occult stool HPI Staff 48 year old male presents on consultation from Estela Benitez for positive occult stool. Denies abdominal or rectal pain. No rectal bleeding or change in bowel habits. Denies nausea or vomiting. No unexplained weight loss. Never had colonoscopy in the past. No known family history of colon cancer. Patient on Plavix, he is unsure why. History of Present Illness 48 yo male with h/o emphysema, pulmonary htn, CREST syndrome, Raynaud's syndrome, referred for positive fecal occult blood test; patient denies change in bms or gross blood in stools, no abd complaints; abdominal operations significant for cholecystectomy, no previous colonoscopy; on Plavix and baby asa daily, no NSAID use; smokes daily; no fmhx of GI malignancy or IBD. Review of Systems PHQ Score Initial Depression Screen Score: 0 SCORE ROS - Provider Constitutional: no fever, no sweats, no weight loss. Eyes: no glasses, no blurred vision, no visual loss. ENMT: no dentures, no hoarseness, no swallowing difficulties, no hearing loss, no ear infection(s), no nose bleeds. Cardiovascular: normal blood pressure, no chest pain, regular heartbeat, no heart murmur. Respiratory: no shortness of breath, no cough, no asthma, no wheezing. Gastrointestinal: no nausea, no vomiting, no diarrhea, no constipation, no blood in stool, no change in bowel habits, no abdominal pain, no hepatitis. Genitourinary: no kidney stones, no urine infection, no dysuria. Musculoskeletal: no pain, no weakness. Skin: no changing moles, no rash, no skin lumps. Neurologic: no seizures, no epilepsy, no headache. Psychiatric: no emotional or psychiatric problem. Heme/Lymph: no bleeding problems, no anemia, no blood clots, no transfusions. Allergy/Immunologic: no swollen lymph nodes/glands, no IV drug abuse. Other: Additional ROS info: Except as noted in the above Review of Systems and in the History of Present Illness, all other systems have been reviewed and are negative or noncontributory. Physical Exam Vitals & Measurements HR: 89(Peripheral) RR: 16 BP: 149/94 HT: 72 in HT: 182.8 cm WT: 97 kg WT: 213.848 lb BMI: 29.03 HEENT: normal conjunctiva, sclera clear, no scleral icterus, EOM intact, PERRLA, oral mucosa moist without lesions. Neck: trachea midline, no mass, symmetric, no thyromegaly or nodules, no adenopathy Respiratory: lungs CTA, respirations non labored. Cardiovascular: regular rate and rhythm, no murmur, no pedal edema or varicosities. Gastrointestinal: obese, soft, non distended, no tenderness, no masses, no palpable hernias, diastasis recti no, no hepatosplenomegaly; normal bs Lymphatic: no cervical adenopathy, no supraclavicular adenopathy. Musculoskeletal: normal gait, digits and nails without infection, nodes, cyanosis, clubbing. Skin: no rashes, no lesions, no ulcers, no subcutaneous nodules, induration. Psychiatric/Neuro: oriented to time, place, person, judgement normal, affect appropriate for age, insight intact, no focal deficits. Tests: labs reviewed review of old records completed , Discussed surgical options, risks, and possible complications with patient. Assessment/Plan 1. Positive occult stool blood test (R19.5: Other fecal abnormalities) plan colonoscopy under anesthesia for further evaluation, informed consent obtained. Follow-up No qualifying data available Problem List/Past Medical History Ongoing Alcohol abuse BMI 29.0-29.9,adult CREST syndrome Emphysema lung Hypertriglyceridemia Overweight Positive occult stool blood test Pulmonary hypertension Raynauds syndrome Historical No qualifying data Procedure/Surgical History Cholecystectomy. Medications aspirin 81 mg Oral EC Tab, 81 mg= 1 tab(s), Oral, Daily atenolol 100 mg Tab, 100 mg= 1 tab(s), Oral, Daily atorvastatin 40 mg Tab, 40 mg= 1 tab(s), Oral, Daily NIFEdipine 60 mg ER Tab, 60 mg= 1 tab(s), Oral, Daily Pantoprazole [address] Tab, 40 mg= 1 tab(s), Oral, Daily Plavix 75 mg Tab, 75 mg= 1 tab(s), Oral, Daily Zoloft 50 mg Tab, 150 mg= 3 tab(s), Oral, Daily Allergies No Known Allergies No Known Medication Allergies Social History Alcohol Current. Beer. 3-5 times per week., 07/31/2024 Substance Abuse Never., 07/31/2024 Tobacco 4 or less cigarettes(less than 1/4 pack)/day in last 30 days Tobacco Use:. Never Smokeless Tobacco Use:. Cigarettes, 0.25 per day. Started age 21.0 Years. Yes, 08/01/2024 Family History Cancer: Mother. Heart disease: Father. Stroke: Father. Immunizations Vaccine Date Status Comments SARS-CoV-2 (COVID-19) mRNA BNT-162b2 vax 05/01/2021 Recorded 2024-07-03: TPV40 SARS-CoV-2 (COVID-19) mRNA BNT-162b2 vax 04/10/2021 Recorded 2024-07-03: TPV40 [facility] Comment on above: Result Comment: Elec tronically Signed By: JOAQUÍN CHAVEZ, Silvestre Gunderson\Date and Time Signed: 08/01/24 08:41 EST 10-19-2023 Progress note Note Date/Time October 19, 2023 7:21am [facility] [address] [place] [address] Wound Center Provider Note Signed Patient: Ritchie Thorne MR#: [id number] : 1975 Acct:[id number] Age/Sex: 48 / M Copies to: DO Jennifer Howard, RITU~ HPI Date of Visit Date of Visit: Date of Service: 10/19/2023 Time of Service: 07:19 Narrative HPI: 06/22/23 Ritchie is a 47 year old presenting to [facility] for an initial visit for eval and treatment of a eschar areas to his fingers that isthe result of his 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 He follows with rheumatology and has been seen by vascular in [place] and he was told that he his [...] wound start?: Early May Mode of Arrival/ Machine Ceramic Coater: Personal vehicle Lives with:: Spouse Appetite Description: Within Normal Limits Who helps w/ dressing change?: Self Smoking Status: Former smoker [facility] Medical History (Updated 08/12/23 @ 07:37 by [...] 0.1 CM Sq: 0.240 Surrounding Tissue Appearance: [place] Surrounding Tissue Temp: Warm Drainage Amount: Scant [...] 10 Dictated By: Jennifer Koenig APRN DD/ Signed By: <Electronically signed by RITU Koenig> 10/19/23 0721 [facility] Work Phone: 1(809) 403-630602-29-2024 Progress note Author Jennifer Koenig [facility] September 23, 2023 7:36am Note Date/Time September 23, 2023 7:36am [facility] [address] [place] [address] Wound Center Provider Note Signed Patient: Ritchie Thorne MR#: [id number] : 1975 Acct:[id number] Age/Sex: 48 / M Copies to: DO Jennifer Howard APRN~ HPI Date of Visit Date of Visit: Date of Service: 09/23/2023 Time of Service: 07:29 Narrative HPI: 06/22/23 Ritchie is a 47 year old presenting to [facility] for an initial visit for eval and treatment of a eschar areas to his fingers that isthe result of his 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 He follows with rheumatology and has been seen by vascular in [place] and he was told that he his [...] wound start?: Early May Mode of Arrival/ Machine Ceramic Coater: Personal vehicle Lives with:: Spouse Appetite Description: Within Normal Limits Who helps w/ dressing change?: Self Smoking Status: Former smoker [facility] Medical History (Updated 08/12/23 @ 07:37 by [...] 0.1 CM Sq: 0.960 Surrounding Tissue Appearance: [place] Surrounding Tissue Temp: Warm Drainage Amount: Scant [...] <Electronically signed by RITU Koenig> 09/23/23 0736 [facility] Work Phone: 1(686) 756-308002-08-2024 Progress note Author Jennifer Koenig [facility] September 02, 2023 7:25am Note Date/Time September 02, 2023 7 :25am [facility] [address] [place] [address] Wound Center Provider Note Signed Patient: Ritchie Thorne MR#: [id number] : 1975 Acct:[id number] Age/Sex: 48 / M Copies to: DO Jennifer Howard APRN~ HPI Date of Visit Date of Visit: Date of Service: 09/02/2023 Time of Service: 07:20 Narrative HPI: 06/22/23 Ritchie is a 47 year old presenting to [facility] for an initial visit for eval and treatment of a eschar areas to his fingers that isthe result of his 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 He follows with rheumatology and has been seen by vascular in [place] and he was told that he his [...] wound start?: Early May Mode of Arrival/ Machine Ceramic Coater: Personal vehicle Lives with:: Spouse Appetite Description: Within Normal Limits Who helps w/ dressing change?: Self Smoking Status: Former smoker [facility] Medical History (Updated 08/12/23 @ 07:37 by [...] 3rd Digit: Type: inflammatory- raynauds Bed Appearance: [place] and Yellow Percent of Wound Bed Granulated/Red: [...] 0.1 CM Sq: 0.700 Surrounding Tissue Appearance: [place] Surrounding Tissue Temp: Warm Drainage Amount: Scant [...] By: <Electronically signed by RITU Koenig> 09/02/2325 [facility] Work Phone: 1(480) 885-807001-18-2024 Progress note Author Jennifer Koenig [facility] August 12, 2023 7:37am Note Date/Time August 12, 2023 7 :37am [facility] [address] [place] [address] Wound Center Provider Note Signed Patient: Ritchie Thorne MR#: [id number] : 1975 Acct:[id number] Age/Sex: 47 / M Copies to: DO Jennifer Howard APRN~ HPI Date of Visit Date of Visit: Date of Service: 08/12/2023 Time of Service: 07:33 Narrative HPI: 06/22/23 Ritchie is a 47 year old presenting to [facility] for an initial visit for eval and treatment of a eschar areas to his fingers that isthe result of his 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 He follows with rheumatology and has been seen by vascular in [place] and he was told that he his [...] wound start?: Early May Mode of Arrival/ Machine Ceramic Coater: Personal vehicle Lives with:: Spouse Appetite Description: Within Normal Limits Who helps w/ dressing change?: Self Smoking Status: Former smoker [facility] Medical History (Updated 08/12/23 @ 07:37 by [...] Digit: Type: inflammatory- raynauds Bed Appearance: Brown, [place] and Yellow Percent of Wound Bed Granulated/Red: [...] 0.1 CM Sq: 0.600 Surrounding Tissue Appearance: [place] Surrounding Tissue Temp: Warm Drainage Amount: Scant [...] 11 Dictated By: Jennifer Koenig APRN DD/ 2 Signed By: <Electronically signed by RITU Koenig> 08/12/2337 [facility] Work Phone: 1(951) 153-122812-28-2023 Progress note Author Jennifer Koenig [facility] July 22, 2023 7:58am Note Date/Time July 22, 2023 7:58am [facility] [address] [place] [address] Wound Center Provider Note Signed Patient: Ritchie Thorne MR#: [id number] : 1975 Acct:[id number] Age/Sex: 47 / M Copies to: DO Jennifer Howard APRN~ HPI Date of Visit Date of Visit: Date of Service: 07/22/2023 Time of Service: 07:55 Narrative HPI: 06/22/23 Ritchie is a 47 year old presenting to [facility] for an initial visit for eval and treatment of a eschar areas to his fingers that isthe result of his 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 He follows with rheumatology and has been seen by vascular in [place] and he was told that he his [...] wound start?: Early May Mode of Arrival/ Machine Ceramic Coater: Personal vehicle Lives with:: Spouse Appetite Description: Within Normal Limits Who helps w/ dressing change?: Self Smoking Status: Former smoker [facility] Medical History (Updated 07/07/23 @ 07:29 by [...] Digit: Type: inflammatory- raynauds Bed Appearance: Brown, [place] and Yellow Percent of Wound Bed Granulated/Red: [...] 12 Dictated By: Jennifer Koenig APRN DD/ 0755 Signed By: <Electronically signed by RITU Koenig> 07/22/23 0758 [facility] Work Phone: 1(408) 521-825112-13-2023 Progress note Author Jennifer Koenig [facility] July 07, 2023 7:29am Note Date/Time July 07, 2023 7:29am [facility] [address] [place] [address] Wound Center Provider Note Signed Patient: Ritchie Thorne MR#: [id number] : 1975 Acct:[id number] Age/Sex: 47 / M Copies to: DO Jeninfer Howard APRN~ HPI Date of Visit Date of Visit: Date of Service: 07/07/2023 Time of Service: 07:25 Narrative HPI: 06/22/23 Ritchie is a 47 year old presenting to [facility] for an initial visit for eval and treatment of a eschar areas to his fingers that isthe result of his 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 He follows with rheumatology and has been seen by vascular in [place] and he was told that he his [...] wound start?: Early May Mode of Arrival/ Machine Ceramic Coater: Personal vehicle Lives with:: Spouse Appetite Description: Within Normal Limits Who helps w/ dressing change?: Self Smoking Status: Former smoker [facility] Medical History (Updated 07/07/23 @ 07:29 by [...] inflammatory- raynauds Bed Appearance: [place] and [place] Percent of Wound Bed Granulated/Red: 5 Percent [...] <Electronically signed by RITU Koenig> 07/07/23 0729 [facility] Work Phone: 1(743) 305-219611-28-2023 Progress note Author Jennifer Koenig [facility] June 22, 2023 8:24am Note Date/Time June 22, 2023 8:11am [facility] [address] [place] [address] Wound Center Provider Note Signed Patient: Ritchie Thorne MR#: [id number] : 1975 Acct:[id number] Age/Sex: 47 / M Copies to: DO Jennifer Howard APRN~ HPI Date of Visit Date of Visit: Date of Service: 06/22/2023 Time of Service: 08:07 Narrative HPI: 06/22/23 Ritchie is a 47 year old presenting to [facility] for an initial visit for eval and treatment of a eschar areas to his fingers that isthe result of his 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 He follows with rheumatology and has been seen by vascular in [place] and he was told that he his [...] wound start?: Early May Mode of Arrival/ Machine Ceramic Coater: Personal vehicle Lives with:: Spouse Appetite Description: Within Normal Limits Who helps w/ dressing change?: Self Smoking Status: Former smoker [facility] Medical History (Updated 06/22/23 @ 08:23 by [...] 22 Dictated By: Jennifer Koenig APRN DD/ [id number] Signed By: <Electronically signed by RITU Koenig> 06/22/23 0824 [facility] Work Phone: 1(402) 546-844811-06-2023 Evaluation note* Encounter Date Diagnosis Assessment Notes [...] May, Tobacco use disorder (ICD-10 - F17.200) [facility] Other 08-28-2023 Evaluation note* Encounter Date Diagnosis Assessment Notes Treatment Notes Treatment Clinical Notes Feb, Chronic obstructive pulmonary disease, unspecified COPD type (ICD-10 - J44.9) Feb, Lung nodule (ICD-10 - R91.1) Feb, 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) Feb, Tobacco use disorder (ICD-10 - F17.200) [facility] Other Evaluation + Plan note No data available for this section [facility] [place] Evaluation noteNo assessment information available [facility] Work Phone: evaluation note* Diagnosis Onset Date Resolution Status Buergers disease chronic Dry gangrene chronic Inflammation chronic Pain chronic Raynaud disease chronic Tobacco abuse resolved [facility] Work Phone: Evaluation note* Diagnosis Onset Date Resolution Status Autoimmune disorder acute Tobacco abuse acute Buergers disease chronic Dry gangrene chronic Inflammation chronic [facility] Work Phone: Evaluation note* Diagnosis Onset Date Resolution Status Buergers disease chronic Calcified lymph nodes acute Centrilobular emphysema acut e Cigarette nicotine dependenc e with nicotine-induced disorder acute 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 acute Pulmonary cavitary lesion ac [place] Raynaud's disease with gangrene acute [facility] Work Phone: Evaluation note* Diagnosis Onset Date Resolution Status Calcified lymph nodes acute Centrilobular emphysema acut e Cigarette nicotine dependenc e with nicotine-induced disorder acute CREST syndrome acute Diastolic dysfunction acute Other secondary pulmonary hypertension acute Pulmonary cavitary lesion ac [place] Raynaud's disease with gangrene acute [facility] Work Phone: Evaluation note* Diagnosis Onset Date Resolution Status Calcified lymph nodes acute Centrilobular emphysema acut e Cigarette nicotine dependenc e with nicotine-induced disorder acute CREST syndrome acute Diastolic dysfunction acute Other secondary pulmonary hypertension acute Pulmonary cavitary lesion ac [place] Raynaud's disease with gangrene acute Calcified lymph nodes acute Centrilobular emphysema acut e Cigarette nicotine dependenc e with nicotine-induced disorder acute CREST syndrome acute Diastolic dysfunction acute Other secondary pulmonary hypertension acute Pulmonary cavitary lesion ac [place] Raynaud's disease with gangrene acute [facility] Work Phone: Evaluation note* Diagnosis Onset Date Resolution Status Admit Date Calcified lymph nodes acute May 8:53am Centrilobular emphysema acute N 2023 8:53am Cigarette nicotine dependenc e with nicotine-induced disorder acute 2023 8:53am CREST syndrome acute May 272023 8:53am Diastolic dysfunction acute May 8:53am Other secondary pulmonary hypertension acute June 15 8:53am Pulmonary cavitary lesion acute June 15, 2024 8:53am Raynaud's disease with gangrene acut e June 15, 2024 8:53am [facility] Work Phone: History general Narrative - Reported* Type Description Date Medical History hypertension Medical History Esophageal reflux Surgical History cholecystectomy [facility] Other Hospital Discharge instructions No data available for this section [facility] [place] Progress note No data available for this section [facility] [place] Summary Purpose Family History No Family History [...] Time Advance Directives No February 23 9:11am Advance Directive Response Recorded Date/ Time Advance Directives No February 23 8:11am Chief Complaint and Reason for Visit Chief [...] Dr. Coronado's request I27.29 M34.1 I27.29 M34.1 [employer]: 2 mo f/u Pulm HTN Reason for Visit Calcified lymph node s Centrilobular emphysema Cigarette nicotine dependence with nicotine-induced disorder CREST syndrome Diastolic dysfunction Other secondary pulmonary hypertension Pulmonary cavitary lesion Raynaud's disease with gangrene Calcified lymph nodes Centrilobular emphysema Cigarette nicotine dependence with nicotine-induced disorder CREST syndrome Diastolic dysfunction Other secondary pulmonary hypertension Pulmonary cavitary lesion Raynaud's disease with gangrene Chief Complaint [employer]: 2 mo f/u Pulm H TN R91.1 Reason for Visit Calcified lymph node s Centrilobular emphysema Cigarette nicotine dependence with nicotine-induced disorder CREST syndrome Diastolic dysfunction Other secondary pulmonary hypertension Pulmonary cavitary lesion Raynaud's disease with gangrene Chief Complaint Admit Date R91.1 April 28, 2024 7: 51am [employer]: 3 mo f/u June 15, 2024 8:53am Reason for Visit Admit Date Calcified lymph nodes June 15 8:53am Centrilobular emphysema June 15 8:53am Cigarette nicotine dependenc e with nicotine-induced disorder June 15, 2024 8:53am CREST syndrome June 15, 2024 8:53am Diastolic dysfunction June 15 8:53am Other secondary pulmonary hypertension N ov2023 8:53am Pulmonary cavitary lesion June 15, 2024 8:53am Raynaud's disease with gangrene June 15, 2024 8:53am Additional Source Comments (unrecognized sect ion and content) No Status Records FoundNo Status Records FoundNo Status Records FoundNo Status Records FoundNo Status Records Found INFORMATION SOURCE (unrecogn ized section and content) DATE CREATED AUTHOR 10/19/2022 [facility] DATE CREATED AUTHOR AUTHOR'S ORGANIZ ATION 01/05/2023 [facility] DATE CREATED AUTHOR AUTHOR'S ORGANIZ ATION 04/30/2024 [facility] DATE CREATED AUTHOR AUTHOR'S ORGANIZ ATION 08/03/2024 Reginaldo English [facility] DATE CREATED AUTHOR AUTHOR'S ORGANIZ ATION 08/11/2024 [facility] Care Teams (unrecognized sec tion and content) Team Status: Inactive Member Role Status Dates Johnny Coronado MD Attending Provider Active Team Status: Active Member Role Status Dates Keagan Oro DO Primary Care Provider Active Team Status: Inactive Member Role Status Dates Tony Lieberman MD Attending Provider Active Keagan Oro DO Primary Care Provider Active Team Status: Active Member Role Status Dates Agustina Benitez NP-C Primary Care Provider Active Team Status: Inactive Member Role Status Dates KAVYA Mcelroy Primary Care Provider Active Bryon Moffett DO Emergency Provider Active Team Status: Active Member Role Status Antonio Oro DO Primary Care Provider Active Jennifer Koenig APRN Attending Provider Active Team Status: Inactive Member Role Status Dates CHYNA McelroyC Primary Care Provider Active Williams Coronado MD Attending Provider Active Team Status: Inactive Member Role Status Dates Keagan Oro DO Primary Care Provider Active Start: October 19, 2023 End: October 19, 2023 Jennifer Koenig APRN Attending Provider Active St art: October 19, 2023 End: October 19, 2023 Team Status: Inactive Member Role Status Dates Agustina Benitez NP-C Primary Care Provider Active Start: December 23, 2023 End: December 23, 2023 Enrico Mc DO Attending Provider Active St art: December 23, 2023 End: December 23, 2023 Team Status: Inactive Member Role Status Dates Agustina Benitez NP-C Primary Care Provider Active Start: January 17, 2024 End: January 17, 2024 Enrico Mc DO Attending Provider Active St art: January 17, 2024 End: January 17, 2024 Team Status: Active Member Role Status Dates Agustina Benitez [employer] Primary Care Provider Active Start: January 17, 2024 Enrico Mc DO Other Provider Active Start: January 17, 2024 Efren Esteves MD Attending Provider Active Start: January 17, 2024 Team Status: Inactive Member Role Status Dates Agsutina Benitez [employer] Primary Care Provider Active Start: February 24, 2024 End: February 24, 2024 Enrico Mc DO Attending Provider Active St art: February 24, 2024 End: February 24, 2024 Team Status: Inactive Member Role Status Dates Agustina Benitez [employer] Primary Care Provider Active Start: April 28, 2024 End: April 28, 2024 Efren Esteves MD Attending Provider Active Start: April 28, 2024 End: April 28, 2024 Team Status: Inactive Member Role Status Dates Agustina Benitez NP-C Primary Care Provider Active Start: June 15, 2024 End: June 15, 2024 Enrico Mc DO Attending Provider Active St art: June 15, 2024 End: June 15, 2024 Goals (unrecognized section and content) Goals [...] may be documented in an alternate section No data available for this section REASON FOR VISIT (unrecogniz ed section [...] BE BASED ON THE PRIMARY CLINICAL RECORDS. [facility] [employer] [facility]. provides no warranty or guarantee of the accuracy or completeness of information in this document.
== END 2024-08-16 08:40 | disposition home or self-care (01) ==
LOC: PST 08:40
PROVIDERS: PCP Nurse Practitioner Family; Visit Provider Surgery
DX: Z01.818 Encounter for other preprocedural examination (principal); R19.5 Other fecal abnormalities; Z12.11 Encounter for screening for malignant neoplasm of colon

== ENCOUNTER 2024-08-23 06:47 | Day surgery (SDC) | payer BC, SELFPAY ==
--- NOTE | 2024-08-23 | OP_ITS ---
OPERATION DATE: 08/23/2024 PREOPERATIVE DIAGNOSIS: Colorectal screening. POSTOPERATIVE DIAGNOSIS: A 4 mm sessile polyp within the distal sigmoid colon. PROCEDURE: Colonoscopy to cecum with cold snare polypectomy x1. SURGEON: Silvestre Munoz M.D. ANESTHESIA: Monitored anesthesia care. ESTIMATED BLOOD LOSS: Less than 1 mL. INDICATIONS AND CONSENT: Patient is a 49-year-old male presents for colorectal screening. Indications, risks, benefits, alternatives of proceeding with colonoscopy were explained extensively to the patient, including the risks of bleeding, colon perforation or anesthetic complications. All of his questions were answered. Informed consent was obtained. PROCEDURE: Patient brought to the operating room, placed in the left lateral decubitus position. Monitored anesthesia care was provided. Rectal exam was performed which showed no masses or blood. The scope was inserted into the anal canal. Under direct visualization was advanced. With the aid of abdominal compression, it was advanced to the cecum where cecal markings were clearly identified. There was noted to be a good prep. Upon withdrawal of the scope, mucosal surfaces were carefully examined. There were no mass lesions or inflammatory changes. No significant diverticulosis. In the distal sigmoid, at around 25 cm, there was noted to be a 4 mm sessile polyp around a fold. This was removed with cold snare with good hemostasis. The scope was retroflexed in the anal canal. There was no significant hemorrhoidal disease. The scope was then withdrawn. Patient tolerated procedure well, was sent to recovery room in good condition. Follow up colonoscopy will likely be in five years for surveillance, but may change based on the pathology report. CC: JEANNETTE Retana
--- OUTSIDE RECORDS SUMMARY | 2024-08-23 06:51 | XMS_ITS | CCD ---
Author Organization [facility] Providers Care Digital Media Associate Name Role Phone HOUSE, DR CROOKS Consulting [...] Attending Unavailable MD Johnny Coronado Attending Provider [phone] Tony Lieberman Unavailable MD Tony Lieberman Attending Provider [phone] DO Keagan Oro Primary Care Provider MD Tony Lieberman Attending Provider [phone] DO Keagan Oro Primary Care Provider [phone] KAVYA Benitez Primary Care Provider DO Bryon Moffett Emergency Provider RITU Koenig Attending Provider MD Williams Coronado Attending Provider DO Keagan Oro Primary Care Provider RITU Koenig Attending Provider KAVYA Benitez Primary Care Provider DO Enrico Mc Attending Provider Jennifer Koenig Admitting Unavailable Jennifer oKenig Attending Unavailable Xander Keagan Primary [facility] Unavailable Williams Coronado Admitting Unavailable Williams Coronado [...] Chaban Kamal Attending Unavailable Keagan Oro Primary [facility] Unavailable KAVYA Benitez Primary Care Provider MD Efren Esteves Attending Provider Juliana GASOLINE TRACTOR OPERATOR-C, Agustina Jennings Primary Care Provider Efren Esteves MD Attending Provider Silvestre YANES Attending Unavailable AGUSTINA BENITEZ Referring Unavailable AGUSTINA BENITEZ Primary Care Physician MALLORIE LUGO Attending Unavailable Allergies Allergy Classification Reported Allergen(s) Allergy Type Date of Onset Reaction(s) Facility (1 source) No Known Medication Allergies; Translations: [No Known Medication Allergies] Propensity to adverse reactions (disorder) [facility] Repository Medications Current Medications Medication Drug Class(es) Dates Sig (Normalized) Sig (Original) [id number] 200 actuat albuterol 0.09 mg/actuat metered dose [...] 18, 2023 12:00am take 1 tablet by [facility] every twenty-four hours Sertraline HCl 100 [...] with H,P. Ideally would like same day. [facility] Follow-Upon 08-08-2024 Follow-Up [id number] Jair Thorne fuentes 1975 M Date Provider Department Center 08/08/2024 Kimani-MALLORIE LUGO HVCVASENDO [facility] No family history on file Level of Service:31860 [place] OFFICE/OUTPATIENT ESTABLISHED MOD MDM 30 MIN Reason for Visit and Comments: Follow-up [907010] - Raynaud's w gangrene, colonoscopy scheduled 08/22 ask if can be off plavix Inpatient 06/30/23 [facility] Ambulatory Visit Summaryon 0 08-01-2024 Ambulatory Visit [...] you for choosing us for your care. [facility] 36on 05-17-2024 36 Contacted patient to get him set up for a year follow up (Raynauds). Let him know we could do a 30 day refill (atorvastatin) and the provide would do the follow up and go from there. Patient has to discuss follow up appt with . Calling 05/18 at 12 pm to schedule 1 year follow up. [facility] CT chest wo [facility] 04-28-2024 CT chest wo [facility] [place] [address] CT Scan Report Signed Patient: Ritchie Thorne MR#: [id number] 966 : 1975 Acct:[id number] Age/Sex: 48 / M ADM Date: 04/28/24 Loc: CT Room: Type: [facility] Attending Dr: Efren Esteves MD Copies [...] Rios Jr., D.OTariq04/28/2024 9:10 AM Dictation Location: [place] [address] Transcribed By: [facility] 04/28/24909 Dictated By: Feliciano Rios Jr, DO 04/28/24906 Signed By: 04/28/24909 Normal [facility] echo transthoracicon [facility] echo transthoracic [facility] [place] [address] Echocardiogram Signed Patient: Ritchie Thorne MR#: [id number] 966 : 1975 Acct:[id number] Age/Sex: 48 / M ADM Date: 01/17/24 Loc: Room: Type: [facility] Attending Dr: Enrico Mc DO Ordering [...] FS: 37.7 % Ao root area: 7.2 [id number] ap4: 8.1 cm TAPSE: 3.0 cm EDV(Teich): [...] Micheal Ratliff MD 01/17/24 1356 Normal [facility] echo transthoracicon [facility] echo transthoracic [facility] Main [place] [address] [place] [address] Echocardiogram Signed Patient: Ritchie Thorne MR#: [id number] 966 : 1975 Acct:[id number] Age/Sex: 47 / M ADM Date: 07/22/23 Loc: RT Room: Type: [facility] Attending Dr: Williams Coronado MD Ordering Provider: Williams Coronado MD Date of Service: 07/22/23/ [facility] echo transthoracic: PULMONARY HYPERTENSION, PULMONARY FIBROSIS Copies [...] cm2 LVOT area: 2.4 cm2 RV S Ulx: 91.0 ml 20.3 cm/sec ESV(Teich): 32.6 ml [...] mmHg RAP systole: 5.0 mmHg Transcribed By: DIAMODN Performed At: 07/22/23 1033 Signed By: Dat Knox MD 07/22/23 1842 Normal [facility] Activated partial thrombopla stin time (aPTT) in platelet poor plasma by coagulation aOrdered By: Williams Krause on 06-18-2023 aPTT Coag (PPP) [Time] 28.0 s 25.1-36.5 [facility] Comment on above: A hematocrit value g reater than 55% may lead to inaccurate results in coagulation testing. Patients having hematocrit values >55% require a special collection tube for coagulation studies. Please contact the laboratory at [phone] for redraw instructions. Automated basophil %Ordered By: Williams Krause on 06-18-2023 Basophils/100 WBC (Bld) 1.3 % Normal . [facility] Comment on above: Performed By: #### P T, PTT, CBC, BMP #### [address] Automated basophil countOrde red By: Williams Krause on 06-18-2023 Basophils (Bld) [#/Vol] 0.1 10*3/uL Normal 0.0-0.2 [facility] Comment on above: Result Comment: PERF ORMED BY: [place] [address] PATHOLOGIST ENTER[employer]ISE APPLICATION ARCHITECT SYMONE MACHADO M.D. Performed By: #### P T, PTT, CBC, BMP #### [address] Automated blood monocyte cou ntOrdered By: Williams Krause on 06-18-2023 Monocytes (Bld) [#/Vol] 0.7 10*3/uL Normal 0.0-0.8 [facility] Comment on above: Performed By: #### P T, PTT, CBC, BMP #### [address] Automated eosinophil %Ordere d By: Williams Krause on 06-18-2023 Eosinophils/100 WBC (Bld) 1.0 % Normal . [facility] Comment on above: Performed By: #### P T, PTT, CBC, BMP #### [address] Automated eosinophil countOr dered By: Williams Krause on 06-18-2023 Eosinophils (Bld) [#/Vol] 0.1 10*3/uL Normal 0.0-0.45 [facility] Comment on above: Performed By: #### P T, PTT, CBC, BMP #### [place] [address] [place] Automated monocyte %Ordered By: Williamsaurea Krause on 06-18-2023 Monocytes/100 WBC (Bld) 10.5 % Normal . [facility] Comment on above: Performed By: #### P T, PTT, CBC, BMP #### [address] Automated neutrophil %Ordere d By: Williams Krause on 06-18-2023 Neutrophils/100 WBC (Bld) 53.3 % Normal . [facility] Comment on above: Performed By: #### P T, PTT, CBC, BMP #### [address] Basic Metabolic Panelon 05-27 Anion gap [Moles/Vol] Not performed Normal 6.0-15.0 [facility] Comment on above: Performed By: #### P T, PTT, CBC, BMP #### [address] Creatinine Clr Calc Pharmacy 104.34 Normal [facility] Comment on above: Result Comment: PERF ORMED BY: [place] [address] PATHOLOGIST ENTERPRISE APPLICATION ARCHITECT SYMONE MACHADO M.D. Performed By: #### P T, PTT, CBC, BMP #### [address] GFR/1.73 sq M.predicted MDRD (S/P/Bld) [Vol rate/Area] mL/min/{1.73_m2} Normal [facility] Comment on above: Performed By: #### P T, PTT, CBC, BMP #### [place] [address] [place] Potassium Normal 3.5-5.1 [facility] Comment on above: Result Comment: Spec imen hemolyzed, redraw requested Results called at 0628 on 06/18/23 Performed By: #### P T, PTT, CBC, BMP #### [place] [address] [place] C reactive protein [Mass/vol ume] in Serum or PlasmaOrdered By: Williams Nelida on 06-18-2023 CRP [Mass/Vol] < 0.5 mg/dL 0.0-0.5 [facility] C-Reactive Proteinon 023 CRP [Mass/Vol] mg/L Normal 0.0-0.5 [facility] Comment on above: Result Comment: PERF ORMED BY: [place] [address] PATHOLOGIST ENTERPRISE APPLICATION ARCHITECT SYMONE MACHADO M.D. Performed By: #### E SR, CRP #### [place] [address] [place] Calcium [Mass/volume] in Ser um or PlasmaOrdered By: Williams Krause on 06-18-2023 Calcium [Mass/Vol] 8.5 mg/dL Low 8.6-10.3 [facility] Comment on above: Performed By: #### P T, PTT, CBC, BMP #### [address] Carbon dioxide, total [Moles /volume] in Serum or PlasmaOrdered By: Williams Krause on 06-18-2023 CO2 [Moles/Vol] 19.2 mmol/L Low 21.0-31.0 [facility] Comment on above: Performed By: #### P T, PTT, CBC, BMP #### [place] [address] [place] Chloride [Moles/volume] in S akiko or PlasmaOrdered By: Williams Krause on 06-18-2023 Chloride [Moles/Vol] 106 mmol/L Normal 98-107 [facility] Comment on above: Performed By: #### P T, PTT, CBC, BMP #### [place] [address] [place] Complete Blood Count Auto Di ffon 06-18-2023 Mean Corpuscular HGB Conc 34.9 g/dL Normal 32.5-35.6 [facility] Comment on above: Performed By: #### P T, PTT, CBC, BMP #### [facility] [address] Monocytes/100 WBC (Bld) 19.18 % Normal 0.00-20.00 [facility] Comment on above: Performed By: #### P T, PTT, CBC, BMP #### [facility] [address] NRBC% 0.3 /100{WBC} Normal 0-0.5 [facility] Comment on above: Performed By: #### P T, PTT, CBC, BMP #### [address] Creatinine [Mass/volume] in Serum or PlasmaOrdered By: Williams Krause on 06-18-2023 Creatinine [Mass/Vol] 0.94 mg/dL Normal 0.70-1.30 [facility] Comment on above: Performed By: #### P T, PTT, CBC, BMP #### [facility] [address] [place] [address] ECG 12 lead ECGon 06-18-2023 ECG 12 lead ECG [facility] Main [place] [address] [place] [address] Electrocardiograph Report Signed Patient: Ritchie Thorne MR#: [id number] 966 : 1975 Acct:[id number] Age/Sex: 47 / M ADM Date: 06/18/23 Loc: ER Room: Type: [facility] ER Attending Dr: Ordering Provider: [...] sinus rhythm Confirmed by Williams Krause DO ([id number]) on 06/18/2023 6:31:26 AM Referred By: Electronically Signed By:Williams Krause DO Transcribed By: MUS Signed By Williams Krause DO 0631 Normal [facility] Erythrocyte Sedimentation Ra nellie 06-18-2023 ESR (Bld) [Velocity] 18 mm/h High 0-14 [facility] Comment on above: Result Comment: PERF ORMED BY: [place] [address] PATHOLOGIST ENTERPRISE APPLICATION ARCHITECT SYMONE MACHADO M.D. Performed By: #### P T, PTT, CBC, BMP #### [address] Erythrocyte distribution wid th [Ratio] by Automated countOrdered By: Williams Krause on 06-18-2023 Erythrocyte distribution width (RBC) [Ratio] 13.2 % Normal 12.0-14.8 [facility] Comment on above: Performed By: #### P T, PTT, CBC, BMP #### [address] Erythrocyte sedimentation ra te by Photometric methodOrdered By: Williams Krause on 06-18-2023 ESR Photometric method (Bld) [Velocity] 18 mm/hr 0-14 [facility] Erythrocytes [#/volume] in B lood by Automated countOrdered By: Williams Krause on 06-18-2023 RBC (Bld) [#/Vol] 4.26 10*6/uL Normal 3.90-5.60 [facility] Comment on above: Performed By: #### P T, PTT, CBC, BMP #### [facility] [address] [place] [address] Glucose [Mass/volume] in Ser um or PlasmaOrdered By: Williams Krause on 06-18-2023 Glucose [Mass/Vol] 119 mg/dL High 70-100 [facility] Comment on above: ADA recommended refe rence rangeRandom Glucose Reference Range is dependent on time and content of last meal. Glucose of more than 200 mg/dL in a nonstressed, ambulatory subject supports the diagnosis of Diabetes Mellitus. Result Comment: [place] om Glucose Reference Range is dependent on time and content of last meal. Glucose of more than 200 mg/dL in a nonstressed, ambulatory subject supports the diagnosis of Diabetes Mellitus. ADA recommended reference range Performed By: #### P T, PTT, CBC, BMP #### [address] Hematocrit [Volume Fraction] of Blood by Automated countOrdered By: Williams Krause on 06-18-2023 Hematocrit (Bld) [Volume fraction] 41.1 % Normal 38.8-50.0 [facility] Comment on above: Performed By: #### P T, PTT, CBC, BMP #### [facility] [address] Hemoglobin [Mass/volume] in BloodOrdered By: Williams Krause on 06-18-2023 Hemoglobin (Bld) [Mass/Vol] 14.3 g/dL Normal 13.0-17.0 [facility] Comment on above: Performed By: #### P T, PTT, CBC, BMP #### [address] INR in Platelet poor plasma by Coagulation assayOrdered By: Williams Krause on 06-18-2023 INR Coag (PPP) [Relative time] 1.0 {INR} Normal [facility] Comment on above: INR Therapeutic Rang e [...] #### P T, PTT, CBC, BMP #### [place] [address] [place] Leukocytes [#/volume] correc quentin for nucleated erythrocytes in Blood by Automated counOrdered By: Williams Krause on 06-18-2023 WBC corrected for nucl RBC Auto (Bld) [#/Vol] 6.2 10*3/uL 4.1-10.5 [facility] Leukocytes [#/volume] in Blo od by Automated countOrdered By: Williams Krause on 06-18-2023 WBC (Bld) [#/Vol] 6.2 10*3/uL Normal 4.1-10.5 [facility] Comment on above: Performed By: #### P T, PTT, CBC, BMP #### [facility] [address] [place] [address] Lymphocytes [#/volume] in Bl ood by Automated countOrdered By: Williams Krause on 06-18-2023 Lymphocytes (Bld) [#/Vol] 2.1 10*3/uL Normal 1.00-4.8 [facility] Comment on above: Performed By: #### P T, PTT, CBC, BMP #### [facility] [address] [place] [address] Lymphocytes/100 leukocytes i n Blood by Automated countOrdered By: Williams Krause on 06-18-2023 Lymphocytes/100 WBC (Bld) 33.9 % Normal . [facility] Comment on above: Performed By: #### P T, PTT, CBC, BMP #### [facility] [address] [place] [address] MCH [Entitic mass] by Automa quentin countOrdered By: Williams Krause on 06-18-2023 MCH (RBC) [Entitic mass] 33.7 pg Normal 27.5-35.2 [facility] Comment on above: Performed By: #### P T, PTT, CBC, BMP #### [facility] [address] [place] [address] MCHC Auto (RBC) [Mass/Vol]Or dered By: Williams Krause on 06-18-2023 MCHC (RBC) [Mass/Vol] 34.9 g/dL 32.5-35.6 [facility] MCV [Entitic volume] by Auto mated countOrdered By: Williams Krause on 06-18-2023 MCV (RBC) [Entitic vol] 96.6 fL Normal 83.5-101 [facility] Comment on above: Performed By: #### P T, PTT, CBC, BMP #### [facility] [address] Monocyte distribution width [Entitic volume] in Blood by AutomatedOrdered By: Williams Robbinsarthy on 06-18-2023 Monocyte distribution width Auto (Bld) [Entitic vol] 19.18 % 0.00-20.00 [facility] Neutrophils [#/volume] in Bl ood by Automated countOrdered By: Williams Robbinsarthy on 06-18-2023 Neutrophils (Bld) [#/Vol] 3.3 10*3/uL Normal 1.8-7.7 [facility] Comment on above: Performed By: #### P T, PTT, CBC, BMP #### [facility] [address] [place] [address] No Panel InformationOrdered By: Williams Krause on 06-18-2023 Estimated GFR (CKD-EPI) > 60.0 mL/Min [facility] Creatinine Clearance (Chem 104.34 [facility] Nucleated erythrocytes [Pres ence] in Blood by Automated countOrdered By: Williams Nelida on 06-18-2023 Nucleated RBC Auto Ql (Bld) 0.3 /100{WBC} 0-0.5 [facility] Partial Thromboplastin Timeo n 06-18-2023 aPTT Coag (Bld) [Time] 28.0 s Normal 25.1-36.5 [facility] Comment on above: Result Comment: A he matocrit value greater than 55% may lead to inaccurate results in coagulation testing. Patients having hematocrit values >55% require a special collection tube for coagulation studies. Please contact the laboratory at [phone] for redraw instructions. PERFORMED BY: [address] [place] [address] PATHOLOGIST [employer]TER[employer]ISE APPLICATION ARCHITECT SYMONE MACHADO M.D. Performed By: #### P T, PTT, CBC, BMP #### [address] Platelet mean volume [Entiti c volume] in Blood by Automated countOrdered By: Williams Krause on 06-18-2023 Platelet mean volume (Bld) [Entitic vol] 7.7 fL Normal 6.6-10.1 [facility] Comment on above: Performed By: #### P T, PTT, CBC, BMP #### [address] Platelets [#/volume] in Bloo d by Automated countOrdered By: Williams Krause on 06-18-2023 Platelets (Bld) [#/Vol] 297 10*3/uL Normal 150-450 [facility] Comment on above: Performed By: #### P T, PTT, CBC, BMP #### [address] Potassium [Moles/volume] in Serum or PlasmaOrdered By: Williams Krause on 06-18-2023 Potassium [Moles/Vol] 4.7 mmol/L Normal 3.5-5.1 [facility] Comment on above: Result Comment: PERF ORMED BY: [place] [address] PATHOLOGIST ENTERPRISE APPLICATION ARCHITECT SYMONE MACHADO M.D. Performed By: #### P T, PTT, CBC, BMP #### [address] Prothrombin time (PT)Ordered By: Williams Krause on 06-18-2023 PT Coag (PPP) [Time] 12.2 s Normal 9.0-12.9 [facility] Comment on above: A hematocrit value g reater than 55% may lead to inaccurate results in coagulation testing. Patients having hematocrit values >55% require a special collection tube for coagulation studies. Please contact the laboratory at [phone] for redraw instructions. Result Comment: A he matocrit value greater than 55% may lead to inaccurate results in coagulation testing. Patients having hematocrit values >55% require a special collection tube for coagulation studies. Please contact the laboratory at [phone] for redraw instructions. Performed By: #### P T, PTT, CBC, BMP #### [facility] [address] [place] [address] Serum or plasma anion gap de terminationOrdered By: Williams Krause on 06-18-2023 Anion gap [Moles/Vol] TNP [facility] Comment on above: Test not performed Sodium [Moles/volume] in Ser um or PlasmaOrdered By: Williams Krause on 06-18-2023 Sodium [Moles/Vol] 134 mmol/L Low 136-145 [facility] Comment on above: Performed By: #### P T, PTT, CBC, BMP #### [facility] [address] [place] [address] Urea nitrogen [Mass/volume] in Serum or PlasmaOrdered By: Williams Krause on 06-18-2023 Urea nitrogen [Mass/Vol] 22 mg/dL Normal 7-25 [facility] Comment on above: Performed By: #### P T, PTT, CBC, BMP #### [facility] [address] [place] [address] CT chest wo con high reson 1 CT chest wo con high res [facility] [place] [address] CT Scan Report Signed Patient: Ritchie Thorne MR#: [id number] 966 : 1975 Acct:[id number] Age/Sex: 47 / M ADM Date: 05/21/23 Loc: CT Room: Type: [facility] Attending Dr: Tony Lieberman MD Copies [...] Rios Jr., D.O.05/21/2023 11:52 AM Dictation Location: [place] [address] Transcribed By: [facility] 05/21/23 1152 Dictated By: Feliciano Rios Jr, DO 05/21/23 1138 Signed By: 05/21/23 1152 Normal [facility] Activated partial thrombopla stin time (aPTT) in platelet poor plasma by coagulation aOrdered By: Williams Coronado on 11-24-2022 aPTT Coag (PPP) [Time] 27.6 s 25.1-36.5 [facility] Alanine aminotransferase [En zymatic activity/volume] in Serum or PlasmaOrdered By: Williams Coronado on 11-24-2022 ALT [Catalytic activity/Vol] 34 U/L [facility] Albumin [Mass/volume] in Ser um or Plasma by Bromocresol green (BCG) dye binding methoOrdered By: Williams Coronado on 11-24-2022 Albumin BCG dye [Mass/Vol] 4.2 g/dL 3.5-5.7 [facility] Alkaline phosphatase [Enzyma tic activity/volume] in Serum or PlasmaOrdered By: Williams Coronado on 11-24-2022 ALP [Catalytic activity/Vol] 80 U/L 34-104 [facility] Aspartate aminotransferase [ Enzymatic activity/volume] in Serum or PlasmaOrdered By: Williams Coronado on 11-24-2022 AST [Catalytic activity/Vol] 27 U/L 13-39 [facility] Automated erythrocytes count in urine sediment (number/area)Ordered By: Williams Coronado on 11-24-2022 RBC Auto (Urine sed) [#/Area] None seen [HPF] 0-4 [facility] Automated leukocytes count i n urine sediment (number/area)Ordered By: Williams Coronado on 11-24-2022 WBC Auto (Urine sed) [#/Area] None seen [HPF] 0-4 [facility] Basophils Auto (Bld) [#/Vol] Ordered By: Williams Coronado on 11-24-2022 Basophils (Bld) [#/Vol] 0.1 10*3/uL 0.0-0.2 [facility] Basophils/100 WBC Auto (Bld) Ordered By: Williams Coronado on 11-24-2022 Basophils/100 WBC (Bld) 0.6 % . [facility] Bilirubin Test strip Ql (U)O rdered By: Williams Coronado on 11-24-2022 Bilirubin Ql (U) Negative Negative [facility] Bilirubin.total [Mass/volume ] in Serum or PlasmaOrdered By: Williams Coronado on 11-24-2022 Bilirubin [Mass/Vol] 0.4 mg/dL 0.3-1.0 [facility] C reactive protein [Mass/vol ume] in Serum or PlasmaOrdered By: Williams Coronado on 11-24-2022 CRP [Mass/Vol] < 0.5 mg/dL 0.0-0.5 [facility] Calcium [Mass/volume] in Ser um or PlasmaOrdered By: Williams Coronado on 11-24-2022 Calcium [Mass/Vol] 9.0 mg/dL 8.6-10.3 [facility] Carbon dioxide, total [Moles /volume] in Serum or PlasmaOrdered By: Williams Coronado on 11-24-2022 CO2 [Moles/Vol] 25.7 mmol/L 21.0-31.0 [facility] Chloride [Moles/volume] in S akiko or PlasmaOrdered By: Williams Coronado on 11-24-2022 Chloride [Moles/Vol] 103 mmol/L 98-107 [facility] Color Auto (U)Ordered By: Juan R Coronado on 11-24-2022 Color (U) Yellow Yellow [facility] Creatine kinase [Enzymatic a ctivity/volume] in Serum or PlasmaOrdered By: Williams Coronado on 11-24-2022 CK [Catalytic activity/Vol] 92 U/L 30-223 [facility] Creatinine [Mass/volume] in Serum or PlasmaOrdered By: Williams Coronado on 11-24-2022 Creatinine [Mass/Vol] 0.96 mg/dL 0.70-1.30 [facility] Eosinophils Auto (Bld) [#/Vo l]Ordered By: Williams Coronado on 11-24-2022 Eosinophils (Bld) [#/Vol] 0.1 10*3/uL 0.0-0.45 [facility] Eosinophils/100 WBC Auto (Bl d)Ordered By: Williams Coronado on 11-24-2022 Eosinophils/100 WBC (Bld) 1.2 % . [facility] Erythrocyte distribution wid th Auto (RBC) [Ratio]Ordered By: Williams Coronado on 11-24-2022 Erythrocyte distribution width (RBC) [Ratio] 13.9 % 12.0-14.8 [facility] Erythrocyte sedimentation ra te by Photometric methodOrdered By: Williams Coronado on 11-24-2022 ESR Photometric method (Bld) [Velocity] 17 mm/hr 0-14 [facility] Globulin Calc (S) [Mass/Vol] Ordered By: Williams Coronado on 11-24-2022 Globulin (S) [Mass/Vol] 3.0 g/dL [facility] Glucose [Mass/volume] in Ser um or PlasmaOrdered By: Williams Coronado on 11-24-2022 Glucose [Mass/Vol] 80 mg/dL 70-100 [facility] Comment on above: ADA recommended refe rence rangeRandom Glucose Reference Range is dependent on time and content of last meal. Glucose of more than 200 mg/dL in a nonstressed, ambulatory subject supports the diagnosis of Diabetes Mellitus. Hematocrit Auto (Bld) [Volum e fraction]Ordered By: Williams Coronado on 11-24-2022 Hematocrit (Bld) [Volume fraction] 44.2 % 38.8-50.0 [facility] Hemoglobin [Mass/volume] in BloodOrdered By: Williams Coronado on 11-24-2022 Hemoglobin (Bld) [Mass/Vol] 14.9 g/dL 13.0-17.0 [facility] Ketones Auto test strip (U) [Mass/Vol]Ordered By: Williams Coronado on 11-24-2022 Ketones (U) [Mass/Vol] Negative Negative Fi [facility] - CoagulationOrde red By: Williams Coronado on 11-24-2022 PT Coag (PPP) [Time] 10.5 s 9.0-12.9 [facility] - UrinalysisOrder ed By: Williams Coronado on 11-24-2022 Hyaline casts LM Ql (Urine sed) None seen [LPF] 0-8 [facility] Leukocytes [#/volume] correc quentin for nucleated erythrocytes in Blood by Automated counOrdered By: Williams Coronado on 11-24-2022 WBC corrected for nucl RBC Auto (Bld) [#/Vol] 8.5 10*3/uL 4.1-10.5 [facility] Lymphocytes Auto (Bld) [#/Vo l]Ordered By: Williams Coronado on 11-24-2022 Lymphocytes (Bld) [#/Vol] 2.8 10*3/uL 1.00-4.8 [facility] Lymphocytes/100 WBC Auto (Bl d)Ordered By: Williams Coronado on 11-24-2022 Lymphocytes/100 WBC (Bld) 32.7 % . [facility] MCH Auto (RBC) [Entitic mass ]Ordered By: Williams Coronado on 11-24-2022 MCH (RBC) [Entitic mass] 34.0 pg 27.5-35.2 [facility] MCHC Auto (RBC) [Mass/Vol]Or dered By: Williams Coronado on 11-24-2022 MCHC (RBC) [Mass/Vol] 33.6 g/dL 32.5-35.6 [facility] MCV Auto (RBC) [Entitic vol] Ordered By: Williams Coronado on 11-24-2022 MCV (RBC) [Entitic vol] 101.0 fL 83.5-101 [facility] Monocytes Auto (Bld) [#/Vol] Ordered By: Williams Coronado on 11-24-2022 Monocytes (Bld) [#/Vol] 0.9 10*3/uL 0.0-0.8 [facility] Monocytes/100 WBC Auto (Bld) Ordered By: Williams Coronado on 11-24-2022 Monocytes/100 WBC (Bld) 10.1 % . [facility] Neutrophils Auto (Bld) [#/Vo l]Ordered By: Williams Coronado on 11-24-2022 Neutrophils (Bld) [#/Vol] 4.7 10*3/uL 1.8-7.7 [facility] Neutrophils/100 WBC Auto (Bl d)Ordered By: Williams Coronado on 11-24-2022 Neutrophils/100 WBC (Bld) 55.4 % . [facility] Nitrite Test strip Ql (U)Ord ered By: Williams Coronado on 11-24-2022 Nitrite Ql (U) Negative Negative [facility] No Panel InformationOrdered By: Williams Coronado on 11-24-2022 Estimated GFR (CKD-EPI) > 60.0 mL/Min [facility] Pharmacy Creatinine Clearance (Chem N/A [facility] Nucleated erythrocytes [Pres ence] in Blood by Automated countOrdered By: Williams Coronado on 11-24-2022 Nucleated RBC Auto Ql (Bld) 0.1 /100{WBC} 0-0.5 [facility] Platelet mean volume Auto (B ld) [Entitic vol]Ordered By: Williams Coronado on 11-24-2022 Platelet mean volume (Bld) [Entitic vol] 9.0 fL 6.6-10.1 [facility] Platelet poor plasma interna tional normalized ratio (INR) by coagulation assay (relatOrdered By: Williams Coronado on 11-24-2022 INR Coag (PPP) [Relative time] 0.9 {INR} [facility] Comment on above: INR Therapeutic Rang e [...] 11-24-2022 Platelets (Bld) [#/Vol] 217 10*3/uL 150-450 [facility] Potassium [Moles/volume] in Serum or PlasmaOrdered By: Williams Coronado on 11-24-2022 Potassium [Moles/Vol] 4.3 mmol/L 3.5-5.1 [facility] Protein Auto test strip (U) [Mass/Vol]Ordered By: Willaims Coronado on 11-24-2022 Protein (U) [Mass/Vol] Negative Negative Fi [facility] Protein [Mass/volume] in Ser um or PlasmaOrdered By: Williams Coronado on 11-24-2022 Protein [Mass/Vol] 7.2 g/dL 6.4-8.9 [facility] RBC Auto (Bld) [#/Vol]Ordere d By: Williams Coronado on 11-24-2022 RBC (Bld) [#/Vol] 4.38 10*6/uL 3.90-5.60 [facility] Serum or plasma albumin/glob ulin mass ratioOrdered By: Williams Coronado on 11-24-2022 Albumin/Globulin [Mass ratio] 1.4 {ratio} [facility] Serum or plasma anion gap de terminationOrdered By: Williams Coronado on 11-24-2022 Anion gap [Moles/Vol] 13.6 mmol/L 6.0-15.0 [facility] Sodium [Moles/volume] in Ser um or PlasmaOrdered By: Williams Coronado on 11-24-2022 Sodium [Moles/Vol] 138 mmol/L 136-145 [facility] Specific gravity Auto test s trip (U) [Rel density]Ordered By: Williams Coronado on 11-24-2022 Specific gravity (U) [Rel density] 1.015 1.001-1.03 0 [facility] Squamous epithelial cells de tection in urine sediment by light microscopyOrdered By: Williams Coronado on 11-24-2022 Epithelial cells.squamous LM Ql (Urine sed) None seen [HPF] 0-2 [facility] Thyrotropin [Units/volume] i n Serum or PlasmaOrdered By: Williams Coronado on 11-24-2022 TSH Qn 2.20 m[IU]/L 0.45-5.33 [facility] Thyroxine (T4) free [Mass/vo lume] in Serum or PlasmaOrdered By: Williams Coronado on 11-24-2022 Free T4 [Mass/Vol] 0.81 ng/dL 0.61-1.12 [facility] Urea nitrogen [Mass/volume] in Serum or PlasmaOrdered By: Williams Coronado on 11-24-2022 Urea nitrogen [Mass/Vol] 13 mg/dL 7-25 [facility] Urine bacteria detection by automated methodOrdered By: Williams Coronado on 11-24-2022 Bacteria Auto Ql (U) None seen None Seen [facility] Urine clarity by refractomet ry automatedOrdered By: Williams Coronado on 11-24-2022 Clarity Refractometry automated (U) Clear Clear [facility] Urine glucose measurement by automated test strip (mass/volume)Ordered By: Williams Coronado on 11-24-2022 Glucose Auto test strip (U) [Mass/Vol] Normal mg/dL Normal [facility] Urine hemoglobin detection b y automated test stripOrdered By: Williams Coronado on 11-24-2022 Hemoglobin Auto test strip Ql (U) Negative Negative [facility] Urine leukocyte esterase det ection by automated test stripOrdered By: Williams Coronado on 11-24-2022 Leukocyte esterase Auto test strip Ql (U) Negative Negative [facility] Urobilinogen Auto test strip (U) [Mass/Vol]Ordered By: Williams Ivonne on 11-24-2022 Urobilinogen (U) [Mass/Vol] Normal mg/dL Normal [facility] WBC Auto (Bld) [#/Vol]Ordere d By: Williams Cullenrow on 11-24-2022 WBC (Bld) [#/Vol] 8.5 10*3/uL 4.1-10.5 [facility] pH Auto test strip (U)Ordere d By: Williams Ivonne on 11-24-2022 pH (U) 5.5 [pH] 5.0-9.0 [facility] ANASTASIIA by IFAon 10-18-2022 Antinuclear Antibodies, IFA Positive Abnormal [facility] Comment on above: Result Comment: Nega tive <1:80 Borderline 1:80 Positive >1:80 Performed By: #### C VDTBH #### [facility] [address] [place] [address] Dr. Kyra Patel Centriole Pattern Normal [facility] Comment on above: Performed By: #### C VDTBH #### [facility] [address] [address] [address] Kyra Patel Centromere Pattern 1:320 Critically high [facility] Comment on above: Result Comment: ICAP nomenclature: AC-3 Performed By: #### C VDTBH #### [facility] [address] [place] [address] Dr. Kyra Patel Homogeneous Pattern 1:160 Critically high [facility] Comment on above: Result Comment: ICAP nomenclature: AC-1 Performed By: #### C VDTBH #### [facility] [address] [address] [address] Kyra Patel Midbody Pattern Normal [facility] Comment on above: Performed By: #### C VDTBH #### [facility] [address] [place] [address] Dr. Kyra Patel Note: Comment Normal [facility] Comment on [...] titers Nucleosomes, Histones Drug-induced SLE Speckled Sm, LOG ROLLER, SCL-70, SLE,MCTD,PSS (diffuse form), SS-A/SS-B Sjogrens Nucleolar SCL-70, PM-1/SCL High titers Scleroderma, PM/DM Centromere Centromere PSS (limited form) w/Crest syndrome variable Nuclear Dot [id number] Primary Biliary Cirrhosis Nuclear GP210, Primary Biliary Cirrhosis Membrane aida A,B,C Performed By: #### C VDTBH #### [facility] [address] [place] [address] Dr. Kyra Patel Nuclear Dot Pattern Normal [facility] Comment on above: Performed By: #### C VDTBH #### [facility] [address] [place] [address] Dr. Kyra Patel Nuclear Membrane Pattern Normal [facility] Comment on above: Performed By: #### C VDTBH #### [facility] [address] [place] [address] Dr. Kyra Patel Nucleolar Pattern Normal [facility] Comment on above: Performed By: #### C VDTBH #### [facility] [address] [place] [address] Dr. Krya Patel PCNA Pattern Normal [facility] Comment on above: Performed By: #### C VDTBH #### [facility] [address] [place] [address] Dr. Kyra Patel Speckled Pattern Normal [facility] Comment on above: Performed By: #### C VDTBH #### [facility] [address] [place] [address] Dr. Kyra Patel Spindle Apparatus Pattern Normal [facility] Comment on above: Performed By: #### C VDTBH #### [facility] [address] [place] [address] Dr. Kyra Patel RHEUMATOID FACTORon 10-17-19 23 RA Latex Turbid. 10.2 IU/mL Normal <14.0 [facility] Comment on above: Performed By: #### C VDTBH #### [facility] [address] [place] [address] Dr. Kyra Patel CBC AUTO DIFFon 10-15-2022 BASO # 0.1 103/ul Normal 0.0-0.1 [facility] Comment on above: Performed By: #### C BC #### [facility] [address] [place] [address] Dr. Kyra Patel Basophils/100 WBC (Bld) 0.9 % Normal 0.2-2.0 [facility] Comment on above: Performed By: #### C BC #### [facility] [address] [place] [address] Dr. Kyra Patel EO # 0.1 103/ul Normal 0.0-0.7 [facility] Comment on above: Performed By: #### C BC #### [facility] [address] [place] [address] Dr. Kyra Patel Eosinophils/100 WBC (Bld) 1.4 % Normal 0.9-7.0 [facility] Comment on above: Performed By: #### C BC #### [facility] [address] [place] [address] Dr. Kyra Patel Erythrocyte distribution width (RBC) [Ratio] 14.0 % Normal 11.0-15.0 [facility] Comment on above: Performed By: #### C BC #### [facility] [address] [place] [address] Dr. Kyra Patel Hematocrit (Bld) [Volume fraction] 40.9 % Critically low 42.0-54.0 [facility] Comment on above: Performed By: #### C BC #### [facility] [address] [place] [address] Dr. Kyra Patel Hemoglobin (Bld) [Mass/Vol] 14.2 g/dL Normal 14.0-18.0 [facility] Comment on above: Performed By: #### C BC #### [facility] [address] [place] [address] Dr. Kyra Patel IG # 0.03 10e3/ul Normal 0.00-0.03 [facility] Comment on above: Performed By: #### C BC #### [facility] [address] [place] [address] Dr. Kyra Patel IG % 0.4 % Normal 0.0-0.5 [facility] Comment on above: Performed By: #### C BC #### [facility] [address] [place] [address] Dr. Kyra Patel LYMPH # 2.5 103/ul Normal 1.2-3.8 [facility] Comment on above: Performed By: #### C BC #### [facility] [address] [place] [address] Dr. Kyra Patel Lymphocytes/100 WBC (Bld) 30.8 % Normal 20.5-60.0 [facility] Comment on above: Performed By: #### C BC #### [facility] [address] [place] [address] Dr. Kyra Patel MANUAL DIFF REQ NO Normal [facility] Comment on above: Performed By: #### C BC #### [facility] [address] [place] [address] Dr. Kyra Patel MCH (RBC) [Entitic mass] 34.7 pg Critically high 25.9-34.0 [facility] Comment on above: Performed By: #### C BC #### [facility] [address] [place] [address] Dr. Kyra Patel MCHC (RBC) [Mass/Vol] 34.7 g/dL Normal 29.9-35.2 [facility] Comment on above: Performed By: #### C BC #### [facility] [address] [place] [address] Dr. Kyra Patel MCV (RBC) [Entitic vol] 100.0 fL Critically high 80.0-94.0 [facility] Comment on above: Performed By: #### C BC #### [facility] [address] [place] [address] Dr. Kyra Patel MONO # 0.8 103/ul Normal 0.3-0.8 [facility] Comment on above: Performed By: #### C BC #### [facility] [address] [place] [address] Dr. Kyra Patel Monocytes/100 WBC (Bld) 9.5 % Normal 1.7-12.0 [facility] Comment on above: Performed By: #### C BC #### [facility] [address] [place] [address] Dr. Kyra Patel NEUT # 4.6 103/ul Normal 1.4-6.5 [facility] Comment on above: Performed By: #### C BC #### [facility] [address] [place] [address] Dr. Kyra Patel Neutrophils/100 WBC (Bld) 57.0 % Normal 43.0-75.0 [facility] Comment on above: Performed By: #### C BC #### [facility] [address] [place] [address] Dr. Kyra Patel Platelet mean volume (Bld) [Entitic vol] 9.4 fL Critically low 9.5-13.5 [facility] Comment on above: Performed By: #### C BC #### [facility] [address] [place] [address] Dr. Kyra Patel PLT 197 103/ul Normal 150-450 [facility] Comment on above: Performed By: #### C BC #### [facility] [address] [place] [address] Dr. Kyra Patel RBC 4.09 106/ul Critically low 4.70-6.10 [facility] Comment on above: Performed By: #### C BC #### [facility] [address] [place] [address] Dr. Kyra Patel WBC 8.1 103/ul Normal 4.0-11.0 [facility] Comment on above: Performed By: #### C BC #### [facility] [address] [place] [address] Dr. Kyra Patel PROF 14(COMP METB)on 023 Albumin [Mass/Vol] 3.6 g/dL Normal 3.4-5.0 [facility] Comment on above: Performed By: #### C MP, T4, TSH #### [facility] [address] [place] [address] Dr. Kyra Patel Albumin/Globulin [Mass ratio] 1.0 {ratio} Normal [facility] Comment on above: Performed By: #### C MP, T4, TSH #### [facility] [address] [place] [address] Dr. Kyra Patel ALP [Catalytic activity/Vol] 86 U/L Normal 46-116 [facility] Comment on above: Performed By: #### C MP, T4, TSH #### [facility] [address] [place] [address] Dr. Kyra Patel ALT [Catalytic activity/Vol] 60 U/L Normal 16-63 [facility] Comment on above: Performed By: #### C MP, T4, TSH #### [facility] [address] [place] [address] Dr. Kyra Patel Anion gap [Moles/Vol] 15.0 mmol/L Normal [facility] Comment on above: Performed By: #### C MP, T4, TSH #### [facility] [address] [place] [address] Dr. Kyra Patel AST [Catalytic activity/Vol] 44 U/L Critically high 15-37 [facility] Comment on above: Performed By: #### C MP, T4, TSH #### [facility] [address] [place] [address] Dr. Kyra Patel Bilirubin [Mass/Vol] 0.4 mg/dL Normal 0.2-1.0 [facility] Comment on above: Performed By: #### C MP, T4, TSH #### [facility] [address] [place] [address] Dr. Kyra Patel Calcium [Mass/Vol] 8.7 mg/dL Normal 8.5-10.1 [facility] Comment on above: Performed By: #### C MP, T4, TSH #### [facility] [address] [place] [address] Dr. Kyra Patel Chloride [Moles/Vol] 103 mmol/L Normal 98-107 [facility] Comment on above: Performed By: #### C MP, T4, TSH #### [facility] [address] [place] [address] Dr. Kyra Patel CO2 [Moles/Vol] 24.2 mmol/L Normal 21.0-32.0 [facility] Comment on above: Performed By: #### C MP, T4, TSH #### [facility] [address] [address] [address] Kyra Patel Creatinine [Mass/Vol] 0.94 mg/dL Normal 0.70-1.30 [facility] Comment on above: Performed By: #### C MP, T4, TSH #### [facility] [address] [address] [address] Kyra Patel EGFR-AF MAURITANIAN >60 Normal >=60 [facility] Comment on above: Performed By: #### C MP, T4, TSH #### [facility] [address] [address] [address] Kyra Patel EGFR-NON AF MAURITANIAN >60 Normal >=60 [facility] Comment on above: Performed By: #### C MP, T4, TSH #### [facility] [address] [address] [address] Kyra Patel Globulin (S) [Mass/Vol] 3.5 g/dL Normal [facility] Comment on above: Performed By: #### C MP, T4, TSH #### [facility] [address] [address] [address] Kyra Patel Glucose [Mass/Vol] 96 mg/dL Normal 74-106 [facility] Comment on above: Performed By: #### C MP, T4, TSH #### [facility] [address] [address] [address] Kyra Patel Potassium [Moles/Vol] 4.2 mmol/L Normal 3.5-5.1 [facility] Comment on above: Performed By: #### C MP, T4, TSH #### [facility] [address] [address] [address] Kyra Patel Protein [Mass/Vol] 7.1 g/dL Normal 6.4-8.2 [facility] Comment on above: Performed By: #### C MP, T4, TSH #### [facility] [address] [address] [address] Kyra Patel Sodium [Moles/Vol] 138 mmol/L Normal 136-145 [facility] Comment on above: Performed By: #### C MP, T4, TSH #### [facility] [address] [place] [address] Dr. Kyra Patel Urea nitrogen [Mass/Vol] 14.0 mg/dL Normal 7.0-18.0 [facility] Comment on above: Performed By: #### C MP, T4, TSH #### [facility] [address] [place] [address] Dr. Kyra Patel Urea nitrogen/Creatinine [Mass ratio] 14.9 mg/mg Normal [facility] Comment on above: Performed By: #### C MP, T4, TSH #### [facility] [address] [place] [address] Dr. Kyra Patel SED RATE [facility] 2022 SED RATE 4 mm/hr Normal <=15 [facility] Comment on above: Performed By: #### S EDR #### [facility] [address] [place] [address] Dr. Kyra Patel T4on 10-15-2022 T4 [Mass/Vol] 6.20 ug/dL Normal 4.50-12.10 [facility] Comment on above: Performed By: #### C MP, T4, TSH #### [facility] [address] [place] [address] Dr. Kyra Patel TSHon 10-15-2022 TSH 1.451 uIU/mL Normal 0.358-3.74 0 [facility] Comment on above: Performed By: #### C MP, T4, TSH #### [facility] [address] [place] [address] Dr. Kyra Patel Covid-19 PCR ([facility])on 06-25 SARS-CoV-2 (COVID-19) RNA COLBY+probe Ql (Unsp spec) Not detected Normal NOT DETECTED [facility] Comment on above: Result Comment: This test is not yet approved or cleared by the [place] FDA. When there are no FDA-approved or cleared tests available, and other criteria are met, FDA can make tests available under an emergency access mechanism called an Emergency Use Authorization (EUA). The EUA for this test is supported by the [place] of Health and Human Service's (HHS's) declaration [...] SARS-CoV-2. Performed By: #### C VDTB #### [facility] [address] [place] [address] Dr. Kyra Patel Covid-19 PCR ([facility])on 06-25 SARS-CoV-2 (COVID-19) RNA COLBY+probe Ql (Unsp spec) Detected Critically abnormal NOT DETECTED [facility] Comment on above: Result Comment: This test is not yet approved or cleared by the [place] FDA. When there are no FDA-approved or cleared tests available, and other criteria are met, FDA can make tests available under an emergency access mechanism called an Emergency Use Authorization (EUA). The EUA for this test is supported by the [employer] of Health and Human Service's (HHS's) declaration [...] used). Performed By: #### C VDTB #### [facility] [address] [place] [address] Dr. Kyra Patel CBC AUTO DIFFon 01-28-2022 BASO # 0.1 103/ul Normal 0.0-0.1 [facility] Comment on above: Performed By: #### C BC #### [facility] [address] [address] [address] Kyra Patel Basophils/100 WBC (Bld) 0.8 % Normal 0.2-2.0 [facility] Comment on above: Performed By: #### C BC #### [facility] [address] [address] [address] Kyra Patel EO # 0.2 103/ul Normal 0.0-0.7 [facility] Comment on above: Performed By: #### C BC #### [facility] [address] [place] [address] Dr. Kyra Patel Eosinophils/100 WBC (Bld) 2.1 % Normal 0.9-7.0 [facility] Comment on above: Performed By: #### C BC #### [facility] [address] [place] [address] Dr. Kyra Patel Erythrocyte distribution width (RBC) [Ratio] 13.7 % Normal 11.0-15.0 [facility] Comment on above: Performed By: #### C BC #### [facility] [address] [place] [address] Dr. Kyra Patel Hematocrit (Bld) [Volume fraction] 43.1 % Normal 42.0-54.0 [facility] Comment on above: Performed By: #### C BC #### [facility] [address] [place] [address] Dr. Kyra Patel Hemoglobin (Bld) [Mass/Vol] 14.7 g/dL Normal 14.0-18.0 [facility] Comment on above: Performed By: #### C BC #### [facility] [address] [place] [address] Dr. Kyra Patel IG # 0.05 10e3/ul Critically high 0.00-0.03 [facility] Comment on above: Performed By: #### C BC #### [facility] [address] [place] [address] Dr. Kyra Patel IG % 0.6 % Critically high 0.0-0.5 [facility] Comment on above: Performed By: #### C BC #### [facility] [address] [place] [address] Dr. Kyra Patel LYMPH # 2.4 103/ul Normal 1.2-3.8 [facility] Comment on above: Performed By: #### C BC #### [facility] [address] [place] [address] Dr. Kyra Patel Lymphocytes/100 WBC (Bld) 27.4 % Normal 20.5-60.0 [facility] Comment on above: Performed By: #### C BC #### [facility] [address] [place] [address] Dr. Kyra Patel MANUAL DIFF REQ NO Normal [facility] Comment on above: Performed By: #### C BC #### [facility] [address] [place] [address] Dr. Kyra Patel MCH (RBC) [Entitic mass] 34.0 pg Normal 25.9-34.0 [facility] Comment on above: Performed By: #### C BC #### [facility] [address] [place] [address] Dr. Kyra Patel MCHC (RBC) [Mass/Vol] 34.1 g/dL Normal 29.9-35.2 [facility] Comment on above: Performed By: #### C BC #### [facility] [address] [place] [address] Dr. Kyra Patel MCV (RBC) [Entitic vol] 99.8 fL Critically high 80.0-94.0 [facility] Comment on above: Performed By: #### C BC #### [facility] [address] [place] [address] Dr. Kyra Patel MONO # 0.9 103/ul Critically high 0.3-0.8 [facility] Comment on above: Performed By: #### C BC #### [facility] [address] [place] [address] Dr. Kyra Patel Monocytes/100 WBC (Bld) 9.8 % Normal 1.7-12.0 [facility] Comment on above: Performed By: #### C BC #### [facility] [address] [place] [address] [address] Kyra Patel NEUT # 5.3 103/ul Normal 1.4-6.5 [facility] Comment on above: Performed By: #### C BC #### [facility] [address] [place] [id number] Kyra Patel Neutrophils/100 WBC (Bld) 59.3 % Normal 43.0-75.0 [facility] Comment on above: Performed By: #### C BC #### [facility] [address] [place] [address] [address] Kyra Patel Platelet mean volume (Bld) [Entitic vol] 9.8 fL Normal 9.5-13.5 [facility] Comment on above: Performed By: #### C BC #### [facility] [address] [place] [address] Dr. Kyra Patel PLT 195 103/ul Normal 150-450 [facility] Comment on above: Performed By: #### C BC #### [facility] [address] [place] [address] Dr. Kyra Patel RBC 4.32 106/ul Critically low 4.70-6.10 [facility] Comment on above: Performed By: #### C BC #### [facility] [address] [place] [address] Dr. Kyra Patel WBC 8.9 103/ul Normal 4.0-11.0 [facility] Comment on above: Performed By: #### C BC #### [facility] [address] [place] [address] Dr. Kyra Patel DIRECT LDLon 01-28-2022 Cholesterol in LDL [Mass/Vol] 135 mg/dL Normal [facility] Comment on above: Performed By: #### D LDL, CMP, LIPID #### [facility] [address] [place] [address] Dr. Kyra Patel DLDL NORMAL SEE BELOW Normal [facility] Comment on above: Result Comment: <100 mg/dl OPTIMAL 100 - 129 mg/dl NEAR OR ABOVE OPTIMAL 130 - 159 mg/dl BORDERLINE HIGH 160 - 189 mg/dl HIGH >190 mg/dl VERY HIGH Performed By: #### D LDL, CMP, LIPID #### [facility] [address] [place], [place] [address] Dr. Kyra Patel LIPID PROFILEon 01-28-2022 CHOL-HDL RATIO NORM SEE BELOW Normal [facility] Comment on above: Result Comment: 3.3 - 4.4 LOW RISK 4.4 - 7.1 AVERAGE RISK 7.1 - 11.0 MODERATE RISK >11.0 HIGH RISK Performed By: #### D LDL, CMP, LIPID #### [facility] [address] [place] [address] [address] Kyra Patel Cholesterol [Mass/Vol] 277 mg/dL Critically high <=200 [facility] Comment on above: Performed By: #### D LDL, CMP, LIPID #### [facility] [address] [place] [address] [address] Kyra Patel Cholesterol in HDL [Mass/Vol] 36 mg/dL Critically low 40-60 [facility] Comment on above: Performed By: #### D LDL, CMP, LIPID #### [facility] [address] [place] [address] [address] Kyra Patel Cholesterol in LDL [Mass/Vol] 81.6 mg/dL Normal [facility] Comment on above: Performed By: #### D LDL, CMP, LIPID #### [facility] [address] [place], [place] [address] Dr. Kyra Patel Cholesterol.total/Chol esterol in HDL [Mass ratio] 7.7 {ratio} Normal [facility] Comment on above: Performed By: #### D LDL, CMP, LIPID #### [facility] [address] [place], [place] [address] Dr. Kyra Patel HDL NORMAL > or = 60 mg/dl - LO W CARDIOVASCULAR RISK <40 mg/dl - HIGH CARDIOVASCULAR RISK Normal [facility] Comment on above: Performed By: #### D LDL, CMP, LIPID #### [facility] [address] [place], [place] [address] Dr. Kyra Patel LDL CALC NORMAL SEE BELOW Normal [facility] Comment on above: Result Comment: <100 mg/dl OPTIMAL 100 - 129 mg/dl NEAR OR ABOVE OPTIMAL 130 - 159 mg/dl BORDERLINE HIGH 160 - 189 mg/dl HIGH >190 mg/dl VERY HIGH Performed By: #### D LDL, CMP, LIPID #### [facility] [address] [place] [address] [address] Kyra Patel Triglyceride [Mass/Vol] 797 mg/dL Critically high <=150 [facility] Comment on above: Performed By: #### D LDL, CMP, LIPID #### [facility] [address] [place] [address] [address] Kyra Patel VLDL CALC 159.4 mg/dL Normal [facility] Comment on above: Performed By: #### D LDL, CMP, LIPID #### [facility] [address] [place] [address] Dr. Kyra Patel PROF 14(COMP METB)on 022 Albumin [Mass/Vol] 3.5 g/dL Normal 3.4-5.0 [facility] Comment on above: Performed By: #### D LDL, CMP, LIPID #### [facility] [address] [place] [address] Dr. Kyra Patel Albumin/Globulin [Mass ratio] 0.9 {ratio} Normal [facility] Comment on above: Performed By: #### D LDL, CMP, LIPID #### [facility] [address] [place] [address] Dr. Kyra Patel ALP [Catalytic activity/Vol] 78 U/L Normal 46-116 [facility] Comment on above: Performed By: #### D LDL, CMP, LIPID #### [facility] [address] [place] [address] Dr. Kyra Patel ALT [Catalytic activity/Vol] 50 U/L Normal 16-63 [facility] Comment on above: Performed By: #### D LDL, CMP, LIPID #### [facility] [address] [place] [address] Dr. Kyra Patel Anion gap [Moles/Vol] 13.7 mmol/L Normal [facility] Comment on above: Performed By: #### D LDL, CMP, LIPID #### [facility] [address] [place] [address] [address] Kyra Patel AST [Catalytic activity/Vol] 30 U/L Normal 15-37 [facility] Comment on above: Performed By: #### D LDL, CMP, LIPID #### [facility] [address] [place] [address] Dr. Kyra Patel Bilirubin [Mass/Vol] 0.3 mg/dL Normal 0.2-1.0 [facility] Comment on above: Performed By: #### D LDL, CMP, LIPID #### [facility] [address] [place] [address] Dr. Kyra Patel Calcium [Mass/Vol] 8.6 mg/dL Normal 8.5-10.1 [facility] Comment on above: Performed By: #### D LDL, CMP, LIPID #### [facility] [address] [place] [address] Dr. Kyra Patel Chloride [Moles/Vol] 104 mmol/L Normal 98-107 [facility] Comment on above: Performed By: #### D LDL, CMP, LIPID #### [facility] [address] [place] [address] Dr. Kyra Patel CO2 [Moles/Vol] 23.8 mmol/L Normal 21.0-32.0 [facility] Comment on above: Performed By: #### D LDL, CMP, LIPID #### [facility] [address] [place] [address] Dr. Kyra Patel Creatinine [Mass/Vol] 1.02 mg/dL Normal 0.70-1.30 [facility] Comment on above: Performed By: #### D LDL, CMP, LIPID #### [facility] [address] [place] [address] Dr. Kyra Patel EGFR-AF MAURITANIAN >60 Normal >=60 [facility] Comment on above: Performed By: #### D LDL, CMP, LIPID #### [facility] [address] [place] [address] Dr. Kyra Patel EGFR-NON AF MAURITANIAN >60 Normal >=60 [facility] Comment on above: Performed By: #### D LDL, CMP, LIPID #### [facility] [address] [place] [address] [address] Kyra Patel Globulin (S) [Mass/Vol] 3.7 g/dL Normal [facility] Comment on above: Performed By: #### D LDL, CMP, LIPID #### [facility] [address] [place] [address] [address] Kyra Patel Glucose [Mass/Vol] 113 mg/dL Critically high 74-106 [facility] Comment on above: Performed By: #### D LDL, CMP, LIPID #### [facility] [address] [place] [address] [address] Kyra Patel Potassium [Moles/Vol] 3.5 mmol/L Normal 3.5-5.1 [facility] Comment on above: Performed By: #### D LDL, CMP, LIPID #### [facility] [address] [place] [address] [address] Kyra Patel Protein [Mass/Vol] 7.2 g/dL Normal 6.4-8.2 [facility] Comment on above: Performed By: #### D LDL, CMP, LIPID #### [facility] [address] [place] [address] [address] Kyra Patel Sodium [Moles/Vol] 138 mmol/L Normal 136-145 [facility] Comment on above: Performed By: #### D LDL, CMP, LIPID #### [facility] [address] [place] [address] [address] Kyra Patel Urea nitrogen [Mass/Vol] 12.0 mg/dL Normal 7.0-18.0 [facility] Comment on above: Performed By: #### D LDL, CMP, LIPID #### [facility] [address] [place] [address] [address] Kyra Patel Urea nitrogen/Creatinine [Mass ratio] 11.8 mg/mg Normal [facility] Comment on above: Performed By: #### D LDL, CMP, LIPID #### [facility] [address] [place] [address] [address] Kyra Patle Vital Signs Date Time Vital Sign Value Performing Clinician Facility 08-01-2024 08:10-0500 Blood Pressure Location Silvestre Cruz [facility] [place] 08-01-2024 08:10-0500 Diastolic blood pressure 94 mm[Hg] Silvestre NILL [facility] [place] 08-01-2024 08:10-0500 Heart rate 89 /min Silvestre NILL [facility] [place] 08-01-2024 08:10-0500 Respiratory rate 16 /min Silvestre NILL [facility] [place] 08-01-2024 08:10-0500 Systolic blood pressure 149 mm[Hg] Silvestre NILL [facility] [place] 06-15-2024 09:01-0500 Body height 182.88 cm Agustina Benitez GASOLINE TRACTOR OPERATOR-C Work Phone: [facility] 06-15-2024 09:01-0500 Body mass index (BMI) [Ratio] 27.8 kg/m2 Agustina Benitez GASOLINE TRACTOR OPERATOR-C Work Phone: [facility] 06-15-2024 09:01-0500 Body temperature 98.1 [degF] Agustina Benitze GASOLINE TRACTOR OPERATOR-C Work Phone: [facility] 06-15-2024 09:01-0500 Body weight 92.98 kg Agustina Benitez GASOLINE TRACTOR OPERATOR-C Work Phone: [facility] 06-15-2024 09:01-0500 Diastolic blood pressure 82 mm[Hg] Agustina Benitez GASOLINE TRACTOR OPERATOR-C Work Phone: [facility] 06-15-2024 09:01-0500 Heart rate 84 /min Agustina Benitez GASOLINE TRACTOR OPERATOR-C Work Phone: [facility] 06-15-2024 09:01-0500 Respiratory rate 20 /min Agustina Benitez GASOLINE TRACTOR OPERATOR-C Work Phone: [facility] 06-15-2024 09:01-0500 SaO2% (BldA) [Mass fraction] 97 % Agustinakaren Bermanmer GASOLINE TRACTOR OPERATOR-C Work Phone: [facility] 06-15-2024 09:01-0500 Systolic blood pressure 155 mm[Hg] Agustinakaren Bermanmer GASOLINE TRACTOR OPERATOR-C Work Phone: [facility] 02-24-2024 08:57-0400 Body height 182.88 cm GASOLINE TRACTOR OPERATOR-C Agustina Juliana Work Phone: [facility] 02-24-2024 08:57-0400 Body mass index (BMI) [Ratio] 28.5 kg/m2 G[employer]OLINE TRACTOR OPERATOR-C Agustina Juliana Work Phone: [facility] 02-24-2024 08:57-0400 Body temperature 98.3 [degF] G[employer]OLINE TRACTOR OPERATOR-C Agustina Juliana Work Phone: [facility] 02-24-2024 08:57-0400 Body weight 95.25 kg GASOLINE TRACTOR OPERATOR-C Agustina Juliana Work Phone: [facility] 02-24-2024 08:57-0400 Diastolic blood pressure 90 mm[Hg] G[employer]OLINE TRACTOR OPERATOR-C Agustina Juliana Work Phone: [facility] 02-24-2024 08:57-0400 Heart rate 81 /min G[employer]OLINE TRACTOR OPERATOR-C Agustina Juliana Work Phone: [facility] 02-24-2024 08:57-0400 Respiratory rate 20 /min GASOLINE TRACTOR OPERATOR-C Agustina Juliana Work Phone: [facility] 02-24-2024 08:57-0400 SaO2% (BldA) [Mass fraction] 97 % GASOLINE TRACTOR OPERATOR-C Agustina Juliana Work Phone: [facility] 02-24-2024 08:57-0400 Systolic blood pressure 144 mm[Hg] GASOLINE TRACTOR OPERATOR-C Agustina Juliana Work Phone: [facility] 12-23-2023 08:57-0400 Body height 182.88 cm DO Keagan House Work Phone: [facility] 12-23-2023 08:57-0400 Body mass index (BMI) [Ratio] 28.7 kg/m2 DO Keagan House Work Phone: [facility] 12-23-2023 08:57-0400 Body temperature 98.6 [degF] DO Keagan House Work Phone: [facility] 12-23-2023 08:57-0400 Body weight 96.16 kg DO Keagan House Work Phone: [facility] 12-23-2023 08:57-0400 Diastolic blood pressure 90 mm[Hg] DO Keagan House Work Phone: [facility] 12-23-2023 08:57-0400 Heart rate 92 /min DO Keagan House Work Phone: [facility] 12-23-2023 08:57-0400 Respiratory rate 20 /min DO Keagan House Work Phone: [facility] 12-23-2023 08:57-0400 SaO2% (BldA) [Mass fraction] 95 % DO Keagan House Work Phone: [facility] 12-23-2023 08:57-0400 Systolic blood pressure 148 mm[Hg] DO Keagan House Work Phone: [facility] 10-19-2023 07:21-0400 Body height 182.88 cm DO Keagan House Work Phone: [facility] 10-19-2023 07:21-0400 Body mass index (BMI) [Ratio] 27.1 kg/m2 DO Keagan House Work Phone: [facility] 10-19-2023 07:21-0400 Body weight 90.71 kg DO Keagan House Work Phone: [facility] 10-19-2023 07:10-0400 Body temperature 97.2 [degF] DO Keagan House Work Phone: [facility] 10-19-2023 07:10-0400 Diastolic blood pressure 84 mm[Hg] DO Keagan House Work Phone: [facility] 10-19-2023 07:10-0400 Heart rate 87 /min DO Keagan House Work Phone: [facility] 10-19-2023 07:10-0400 Respiratory rate 20 /min DO Keagan House Work Phone: [facility] 10-19-2023 07:10-0400 Systolic blood pressure 149 mm[Hg] DO Keagan House Work Phone: [facility] 07-22-2023 07:58-0500 Body height 182.88 cm DO Keagan House Work Phone: [facility] 07-22-2023 07:58-0500 Body mass index (BMI) [Ratio] 27.1 kg/m2 DO Keagan House Work Phone: [facility] 07-22-2023 07:58-0500 Body weight 90.71 kg DO Keagan House Work Phone: [facility] 07-22-2023 07:45-0500 Diastolic blood pressure 81 mm[Hg] DO Keagan House Work Phone: [facility] 07-22-2023 07:45-0500 Heart rate 84 /min DO Keagan House Work Phone: [facility] 07-22-2023 07:45-0500 Respiratory rate 20 /min DO Keagan House Work Phone: [facility] 07-22-2023 07:45-0500 Systolic blood pressure 146 mm[Hg] DO Keagan House Work Phone: [facility] 07-07-2023 07:19-0500 Body temperature 97.8 [degF] DO Keagan House Work Phone: [facility] 06-18-2023 12:47-0500 Diastolic blood pressure 77 mm[Hg] DO Keagan House Work Phone: [facility] 06-18-2023 12:47-0500 Heart rate 78 /min DO Keagan House Work Phone: [facility] 06-18-2023 12:47-0500 Respiratory rate 18 /min DO Keagan House Work Phone: [facility] 06-18-2023 12:47-0500 SaO2% (BldA) [Mass fraction] 98 % DO Keagan House Work Phone: [facility] 06-18-2023 12:47-0500 Systolic blood pressure 131 mm[Hg] DO Keagan House Work Phone: [facility] 06-18-2023 05:13-0500 Body temperature 98 [degF] DO Keagan Oro Work Phone: [facility] 06-18-2023 05:12-0500 Body height 182.88 cm DO Keagan Oro Work Phone: [facility] 06-18-2023 05:12-0500 Body weight 90.71 kg DO Keagan Oro Work Phone: [facility] 05-31-2023 09:45-0500 Body height 182.88 cm Tony Lieberman Other [facility] Other 03-22-2023 10:30-0400 Body height 182.88 cm Tony Lieberman Other [facility] Other 03-22-2023 10:30-0400 Body mass index (BMI) [Ratio] 26.58 kg/m2 Tony Lieberman Other [facility] Other 03-22-2023 10:30-0400 Body temperature 98.2 [degF] Tony Lieberman Other [facility] Other 03-22-2023 10:30-0400 Body weight 88.91 kg Tony Lieberman Other [facility] Other 03-22-2023 10:30-0400 Diastolic blood pressure 72 mm[Hg] Tony Lieberman Other [facility] Other 03-22-2023 10:30-0400 Respiratory rate 20 /min Tony Lieberman Other [facility] Other 03-22-2023 10:30-0400 SaO2% (BldA) [Mass fraction] 96 % Tony Lieberman Other [facility] Other 03-22-2023 10:30-0400 Systolic blood pressure 120 mm[Hg] Tony Lieberman Other [facility] Other Encounters Encounter Date Encounter Type Care Provider Facility Start: 08-08-2024 End: 08-08-2024 ambulatory [facility] Start: 08-01-2024 End: 08-01-2024 ambulatory Silvestre R JESSICAL Facility:[facility] Start: 08-01-2024 End: 08-01-2024 Patient encounter procedure Silvestre R NILL [facility] [place] Start: 07-24-2024 ambulatory Silvestre LOPEZL Facility:[facility] Start: 06-15-2024 End: 06-15-2024 ambulatory Agustina Benitez GASOLINE TRACTOR OPERATOR-C Work Phone: [facility] Work Phone: Start: 06-15-2024 End: 06-15-2024 Patient encounter procedure Agustina Benitez GASOLINE TRACTOR OPERATOR-C Work Phone: [facility] Work Phone: Start: 06-12-2024 ambulatory Silvestre NILL Facility:[facility] Start: 04-28-2024 End: 04-28-2024 Patient encounter procedure GASOLINE TRACTOR OPERATOR-C Agustinakaren Benitez Work Phone: [facility] [place] Work Phone: Start: 04-28-2024 End: 04-28-2024 ambulatory Efren Esteves Facility:[facility] Start: 02-24-2024 End: 02-24-2024 ambulatory GASOLINE TRACTOR OPERATOR-C Agustina Michaela Juliana Work Phone: [facility] Work Phone: Start: 02-24-2024 End: 02-24-2024 Patient encounter procedure GASOLINE TRACTOR OPERATOR-C Agustinakaren Bermanmer Work Phone: [facility] Work Phone: Start: 01-17-2024 Non-patient / Non-visit GASOLINE TRACTOR OPERATOR-C Agustinakaren Bermanmer Work Phone: [facility] Work Phone: Start: 01-17-2024 End: 01-17-2024 Patient encounter procedure GASOLINE TRACTOR OPERATOR-C Agustinakaren Bermanmer Work Phone: [facility] Work Phone: Start: 01-17-2024 End: 01-17-2024 ambulatory GASOLINE TRACTOR OPERATOR-C Agustinakaren Benitez Work Phone: [facility] Work Phone: Start: 12-23-2023 End: 12-23-2023 ambulatory DO Keagan House Work Phone: [facility] Work Phone: Start: 12-23-2023 End: 12-23-2023 Patient encounter procedure DO Keagan House Work Phone: [facility] Work Phone: Start: 10-19-2023 End: 10-19-2023 ambulatory DO Keagan House Work Phone: [facility] Work Phone: Start: 10-19-2023 End: 10-19-2023 Discharged Recurring DO Keagan House Work Phone: [facility] [place] Work Phone: Start: 07-22-2023 End: 07-22-2023 Patient encounter procedure DO Keagan House Work Phone: [facility] Work Phone: Start: 07-22-2023 End: 07-22-2023 ambulatory DO Keagan House Work Phone: [facility] Work Phone: Start: 07-22-2023 Registered Recurring DO Waqar s House Work Phone: [facility] [place] Work Phone: Start: 06-18-2023 End: 06-18-2023 Emergency department patient visit DO Keagan House Work Phone: [facility] Work Phone: Start: 05-31-2023 End: 05-31-2023 ambulatory Kamal Chaban Other [facility] Other Start: 05-31-2023 Office outpatient visit 15 minutes Drewrojas Vegahenry [facility] Start: 05-21-2023 End: 05-21-2023 Patient encounter procedure DO Keagan House Work Phone: [facility] Scan [place] Work Phone: Start: 05-21-2023 End: 05-21-2023 ambulatory DO Keagan House Work Phone: [facility] Work Phone: Start: 03-22-2023 End: 03-22-2023 ambulatory Kamal Chaban Other [facility] Other Start: 03-22-2023 Office outpatient ne w 45 minutes Tony Lieberman [facility] Start: 12-10-2022 ambulatory Facility:[id number] Start: 11-24-2022 End: 11-24-2022 ambulatory MD Johnny Coronado Work Phone: [facility] Work Phone: Start: 11-24-2022 End: 11-24-2022 Patient encounter procedure MD Johnny Coronado Work Phone: [facility] [address] Work Phone: Start: 10-18-2022 Encounter for genera l adult medical examination without abnormal findings DR KEAGAN ORO [facility] Start: 10-15-2022 End: 10-16-[address] KEAGAN [...] Start: 04-28-2024 CT of chest without contrast GASOLINE TRACTOR OPERATOR-C Agustina Benitez Work Phone: Start: 05-21-2023 CT of chest without contrast DO Keagan Oro Work Phone: Cholecystectomy Silvestre YANES Plan of Treatment Date Care Activity Detail Author Start: 11-24-2022 Hemolytic complement CH50 level [facility] Start: 11-24-2022 [facility] Lupus anticoagulant [Interpretation] in Platelet poor plasma [facility] Patient referral [facility] Work Phone: Thrombin time [facility] US Heart Transthoracic [facility] Immunizations Immunization Date Immunization Notes Care Provider Fa cility 05-01-2021 SARS-CoV-2 (COVID-19 ) mRNA BNT-162b2 paul YANES [facility] Comment on above: Result Comment: 2023: [id number] 04-10-2021 SARS-CoV-2 (COVID-19 ) mRNA BNT-162b2 paul YANES [facility] Comment on above: Result Comment: 2023: [id number] Payers Date Payer Category Payer Unknown [id number] 2023 Self-pay 1975 Unknown [id number] 2.16.84 [id number] 1975 Unknown [id number] 2.16.84 [id number] 1973 Unknown [id number] 2.16.84 [id number] 1973 Unknown [id number] 2.16.84 [id number] 1973 Unknown [id number] 2.16. [id number] 1973 Unknown [id number] 2.16.8 [id number] 1959 Unknown [id number] Unknown [id number] 2.16.8 [id number] Unknown [id number] 2.16.8 [id number] Unknown [id number] 2.16.8 [id number] Unknown [id number] 2.16.8 [id number] Unknown [id number] 2.16.8 [id number] Unknown [id number] 2.16.8 [id number] Social History Date Type Detail Facility Tobacco smoking stat [facility] Unknown if ever smoked [facility] Work Phone: Start: 1975 Sex Assigned At Male F [facility] Sex Assigned At [facility] Start: 06-18-2023 Tobacco smoking stat [facility] Smoker (finding) [facility] Start: 07-22-2023 End: 10-19-2023 Tobacco smoking status NHIS Ex-smoker (finding) [facility] Start: 12-23-2023 End: 02-24-2024 Tobacco smoking status [facility] Current some day smoker [facility] Start: 06-15-2024 Sex Male (finding) [facility] Start: 08-01-2024 Tobacco smoking status Light t obacco smoker (finding) [facility] [place] Tobacco smoking status Never [facility] Functional Status Date Assessment Result Facility 08-01-2024 Functional Status N/A [facility] [place] Clinical Notes 03-22-2023 to 08-08-2024 Note Date [...] Venous reflux studies and follow up at [facility] No diagnosis found. No orders of the defined types were placed in this encounter. No results found for this or any previous visit (from the past 36 hour(s)). No follow-ups on file. [facility] 08-01-2024 Note General Surgery Offi [...] mRNA BNT-162b2 vax 04/10/2021 Recorded 2024-07-03: [id number] [facility] Comment on above: Result Comment: Elec tronically Signed By: JOAQUÍN CHAVEZ, Silvestre Gunderson\Date and Time Signed: 08/01/24 08:41 EST 10-19-2023 Progress note Note Date/Time October 19, 2023 7:21am [facility] EN[facility] [address] [place] [address] Wound Center Provider Note Signed Patient: Ritchie Thorne MR#: [id number] : 1975 Acct:[id number] Age/Sex: 48 / M Copies to: DO Jennifer Howard, RITU~ HPI Date of Visit Date of Visit: Date of Service: 10/19/2023 Time of Service: 07:19 Narrative HPI: 06/22/23 Ritchie is a 47 year old presenting to [facility] wound care program for an initial visit for eval and treatment of a eschar areas to his fingers that isthe result of his 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 Work Phone: 1(724) 788-952902-29-2024 Progress note Author Jennifer Koenig [facility] September 23, 2023 7:36am Note Date/Time September 23, 2023 7:36am [facility] EN[facility] [address] [place] [address] Wound Center Provider Note Signed Patient: Ritchie Thorne MR#: [id number] : 1975 Acct:[id number] Age/Sex: 48 / M Copies to: DO Jennifer Howard APRN~ HPI Date of Visit Date of Visit: Date of Service: 09/23/2023 Time of Service: 07:29 Narrative HPI: 06/22/23 Ritchie is a 47 year old presenting to [facility] wound care program for an initial visit for eval and treatment of a eschar areas to his fingers that isthe result of his 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 He follows with rheumatology and has been seen by vascular in [place] and he was told that he his [...] wound start?: Early May Mode of Arrival/ Shelter Supervisor: Personal vehicle Lives with:: Spouse Appetite Description: Within Normal Limits Who helps w/ dressing change?: Self Smoking Status: Former smoker [facility] Medical History (Updated 08/12/23 @ 07:37 by [...] 0.1 CM Sq: 0.960 Surrounding Tissue Appearance: Emlyn Surrounding Tissue Temp: Warm Drainage Amount: Scant [...] <Electronically signed by RITU Koenig> 09/23/[address] [facility] Work Phone: 1(820) 766-945702-08-2024 Progress note Author Jennifer Koenig [facility] September 02, 2023 7:25am Note Date/Time September 02, 2023 7 :25am [facility] EN[facility] [address] [place] [address] Wound Center Provider Note Signed Patient: Ritchie Thorne MR#: [id number] : 1975 Acct:[id number] Age/Sex: 48 / M Copies to: DO Jennifer Howard APRN~ HPI Date of Visit Date of Visit: Date of Service: 09/02/2023 Time of Service: 07:20 Narrative HPI: 06/22/23 Ritchie is a 47 year old presenting to [facility] wound care program for an initial visit for eval and treatment of a eschar areas to his fingers that isthe result of his 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 He follows with rheumatology and has been seen by vascular in [place] and he was told that he his [...] wound start?: Early May Mode of Arrival/ Shelter Supervisor: Personal vehicle Lives with:: Spouse Appetite Description: Within Normal Limits Who helps w/ dressing change?: Self Smoking Status: Former smoker [facility] Medical History (Updated 08/12/23 @ 07:37 by [...] 3rd Digit: Type: inflammatory- raynauds Bed Appearance: Emlyn and Yellow Percent of Wound Bed Granulated/Red: [...] 0.1 CM Sq: 0.700 Surrounding Tissue Appearance: Emlyn Surrounding Tissue Temp: Warm Drainage Amount: Scant [...] signed by RITU Koenig> 09/02/[address] [facility] Work Phone: 1(435) 530-476101-18-2024 Progress note Author Jennifer Koenig [facility] August 12, 2023 7:37am Note Date/Time August 12, 2023 7 :37am [facility] [address] [place] [address] Wound Center Provider Note Signed Patient: Ritchie Thorne MR#: [id number] : 1975 Acct:[id number] Age/Sex: 47 / M Copies to: DO Jennifer Howard APRN~ HPI Date of Visit Date of Visit: Date of Service: 08/12/2023 Time of Service: 07:33 Narrative HPI: 06/22/23 Ritchie is a 47 year old presenting to [facility] wound care program for an initial visit for eval and treatment of a eschar areas to his fingers that isthe result of his 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 He follows with rheumatology and has been seen by vascular in [place] and he was told that he his [...] wound start?: Early May Mode of Arrival/ Shelter Supervisor: Personal vehicle Lives with:: Spouse Appetite Description: Within Normal Limits Who helps w/ dressing change?: Self Smoking Status: Former smoker [facility] Medical History (Updated 08/12/23 @ 07:37 by [...] Digit: Type: inflammatory- raynauds Bed Appearance: Brown, Emlyn and Yellow Percent of Wound Bed Granulated/Red: [...] 0.1 CM Sq: 0.600 Surrounding Tissue Appearance: Emlyn Surrounding Tissue Temp: Warm Drainage Amount: Scant [...] By: <Electronically signed by RITU Koenig> 08/12/[address] [facility] Work Phone: 1(779) 157-881412-28-2023 Progress note Author Jennifer Koenig [facility] July 22, 2023 7:58am Note Date/Time July 22, 2023 7:58am [facility] [address] [place] [address] Wound Center Provider Note Signed Patient: Ritchie Thorne MR#: [id number] : 1975 Acct:[id number] Age/Sex: 47 / M Copies to: DO Jennifer Howard APRN~ HPI Date of Visit Date of Visit: Date of Service: 07/22/2023 Time of Service: 07:55 Narrative HPI: 06/22/23 Ritchie is a 47 year old presenting to [facility] wound care program for an initial visit for eval and treatment of a eschar areas to his fingers that isthe result of his 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 He follows with rheumatology and has been seen by vascular in [place] and he was told that he his [...] wound start?: Early May Mode of Arrival/ Shelter Supervisor: Personal vehicle Lives with:: Spouse Appetite Description: Within Normal Limits Who helps w/ dressing change?: Self Smoking Status: Former smoker [facility] Medical History (Updated 07/07/23 @ 07:29 by [...] Digit: Type: inflammatory- raynauds Bed Appearance: Brown, Emlyn and Yellow Percent of Wound Bed Granulated/Red: [...] by RITU Koenig> 07/22/[address] [facility] Work Phone: 1(715) 777-321012-13-2023 Progress note Author Jennifer Koenig [facility] July 07, 2023 7:29am Note Date/Time July 07, 2023 7:29am [facility] [address] [place] [address] Wound Center Provider Note Signed Patient: Ritchie Thorne MR#: [id number] : 1975 Acct:[id number] Age/Sex: 47 / M Copies to: DO Jennifer Howard APRN~ HPI Date of Visit Date of Visit: Date of Service: 07/07/2023 Time of Service: 07:25 Narrative HPI: 06/22/23 Ritchie is a 47 year old presenting to [facility] wound care program for an initial visit for eval and treatment of a eschar areas to his fingers that isthe result of his 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 He follows with rheumatology and has been seen by vascular in [place] and he was told that he his [...] wound start?: Early May Mode of Arrival/ Shelter Supervisor: Personal vehicle Lives with:: Spouse Appetite Description: Within Normal Limits Who helps w/ dressing change?: Self Smoking Status: Former smoker [facility] Medical History (Updated 07/07/23 @ 07:29 by [...] inflammatory- raynauds Bed Appearance: Black Dry and Emlyn Percent of Wound Bed Granulated/Red: 5 Percent [...] <Electronically signed by RITU Koenig> 07/07/23 0729 [facility] Work Phone: 1(786) 210-299611-28-2023 Progress note Author Jennifer Koenig [facility] June 22, 2023 8:24am Note Date/Time June 22, 2023 8:11am [facility] [address] [place] [address] Wound Center Provider Note Signed Patient: Ritchie Thorne MR#: [id number] : 1975 Acct:[id number] Age/Sex: 47 / M Copies to: DO Jennifer Howard APRN~ HPI Date of Visit Date of Visit: Date of Service: 06/22/2023 Time of Service: 08:07 Narrative HPI: 06/22/23 Ritchie is a 47 year old presenting to [facility] wound care program for an initial visit for eval and treatment of a eschar areas to his fingers that isthe result of his 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 He follows with rheumatology and has been seen by vascular in [place] and he was told that he his [...] wound start?: Early May Mode of Arrival/ Shelter Supervisor: Personal vehicle Lives with:: Spouse Appetite Description: Within Normal Limits Who helps w/ dressing change?: Self Smoking Status: Former smoker [facility] Medical History (Updated 06/22/23 @ 08:23 by [...] <Electronically signed by RITU Koenig> 06/22/23 0824 [facility] Work Phone: 1(832) 627-878511-06-2023 Evaluation note* Encounter Date Diagnosis Assessment Notes [...] May, Tobacco use disorder (ICD-10 - F17.200) [facility] Other 08-28-2023 Evaluation note* Encounter Date Diagnosis Assessment Notes Treatment Notes Treatment Clinical Notes Feb, Chronic obstructive pulmonary disease, unspecified COPD type (ICD-10 - J44.9) Feb, Lung nodule (ICD-10 - R91.1) Feb, 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) Feb, Tobacco use disorder (ICD-10 - F17.200) [facility] Other Evaluation + Plan note No data available for this section [facility] [place] Evaluation noteNo assessment information available [facility] Work Phone: evaluation note* Diagnosis Onset Date Resolution Status Buergers disease chronic Dry gangrene chronic Inflammation chronic Pain chronic Raynaud disease chronic Tobacco abuse resolved [facility] Work Phone: Evaluation note* Diagnosis Onset Date Resolution Status Autoimmune disorder acute Tobacco abuse acute Buergers disease chronic Dry gangrene chronic Inflammation chronic [facility] Work Phone: Evaluation note* Diagnosis Onset Date Resolution Status Buergers disease chronic Calcified lymph nodes acute Centrilobular emphysema acut e Cigarette nicotine dependenc e with nicotine-induced disorder acute 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 acute Pulmonary cavitary lesion ac [place]ib[place] Raynaud's disease with gangrene acute [facility] Work Phone: Evaluation note* Diagnosis Onset Date Resolution Status Calcified lymph nodes acute Centrilobular emphysema acut e Cigarette nicotine dependenc e with nicotine-induced disorder acute CREST syndrome acute Diastolic dysfunction acute Other secondary pulmonary hypertension acute Pulmonary cavitary lesion ac [place] Raynaud's disease with gangrene acute [facility] Work Phone: Evaluation note* Diagnosis Onset Date Resolution Status Calcified lymph nodes acute Centrilobular emphysema acut e Cigarette nicotine dependenc e with nicotine-induced disorder acute CREST syndrome acute Diastolic dysfunction acute Other secondary pulmonary hypertension acute Pulmonary cavitary lesion ac [place] Raynaud's disease with gangrene acute Calcified lymph nodes acute Centrilobular emphysema acut e Cigarette nicotine dependenc e with nicotine-induced disorder acute CREST syndrome acute Diastolic dysfunction acute Other secondary pulmonary hypertension acute Pulmonary cavitary lesion ac [place] Raynaud's disease with gangrene acute [facility] Work Phone: Evaluation note* Diagnosis Onset [...] gangrene acut e June 15, 2024 8:53am [facility] Work Phone: History general Narrative - Reported* Type Description Date Medical History hypertension Medical History Esophageal reflux Surgical History cholecystectomy [facility] Other Hospital Discharge instructions No data available for this section [facility] [place] Progress note No data available for this section [facility] [place] Summary Purpose Family History No Family History [...] Dr. 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: 2 mo f/u Pulm H TN R91.1 Reason for Visit Calcified lymph node s Centrilobular emphysema Cigarette nicotine dependence with nicotine-induced disorder CREST syndrome Diastolic dysfunction Other secondary pulmonary hypertension Pulmonary cavitary lesion Raynaud's disease with gangrene Chief Complaint Admit Date R91.1 April 28, 2024 7: 51am STRIPE MARKER: 3 mo f/u June 15, 2024 8:53am [...] DATE CREATED AUTHOR AUTHOR'S ORGANIZ ATION 01/05/2023 [facility] DATE CREATED AUTHOR AUTHOR'S ORGANIZ ATION 04/30/2024 [facility] DATE CREATED AUTHOR AUTHOR'S ORGANIZ ATION 08/03/2024 Reginaldo English [facility] DATE CREATED AUTHOR AUTHOR'S ORGANIZ ATION 08/11/2024 [facility] Care Teams (unrecognized sec tion and [...] Active Member Role Status Dates Agustina Benitez GASOLINE TRACTOR OPERATOR-C Primary Care Provider Active Start: January 17, 2024 Enrico Mc DO Other Provider Active Start: January 17, 2024 Efren Esteves MD Attending Provider Active Start: January 17, 2024 Team Status: Inactive Member Role Status Dates Agustina Benitez GASOLINE TRACTOR OPERATOR-C Primary Care Provider Active Start: February 24, 2024 End: February 24, 2024 Enrico Mc DO Attending Provider Active St art: February 24, 2024 End: February 24, 2024 Team Status: Inactive Member Role Status Dates Agustina Benitez GASOLINE TRACTOR OPERATOR-C Primary Care Provider Active Start: April 28, [...] BE BASED ON THE PRIMARY CLINICAL RECORDS. [facility] [facility] provides no warranty or guarantee of the accuracy or completeness of information in this document.
[2024-08-23 07:08] VITALS: BP 144/99; PULSE 98; TEMP 36.4; O2SAT 98; BMI 28.8
[2024-08-23] MEDS: 0.9 % SODIUM CHLORIDE 500 ML 50 ML IV (07:17)
[2024-08-23 08:19] VITALS: BP 94/53; PULSE 83; TEMP 36.2; O2SAT 95
[2024-08-23 08:34] VITALS: BP 144/91; PULSE 83; O2SAT 95
[2024-08-23 08:49] VITALS: BP 111/93; PULSE 86; O2SAT 96
== END 2024-08-23 08:49 | disposition home or self-care (01) ==
PROVIDERS: PCP Nurse Practitioner Family; Visit Provider Surgery
PROC: (CPT 811; principal; 2024-08-23 08:00)
DX: R19.5 Other fecal abnormalities (principal); K63.5 Polyp of colon; Z79.02 Long term (current) use of antithrombotics/antiplatelets; J43.9 Emphysema, unspecified; I27.20 Pulmonary hypertension, unspecified; I73.00 Raynaud's syndrome without gangrene; Z79.82 Long term (current) use of aspirin; Z90.49 Acquired absence of other specified parts of digestive tract; F17.210 Nicotine dependence, cigarettes, uncomplicated; I10 Essential (primary) hypertension; E78.5 Hyperlipidemia, unspecified; M34.1 CR(E)ST syndrome
CPT/HCPCS: 45385; 88305; J2704

== ENCOUNTER 2025-06-04 07:15 | Outpatient (OUT) | payer BC, SELFPAY ==
--- OUTSIDE RECORDS SUMMARY | 2025-06-04 07:19 | XMS_ITS | Patient Health Record ---
Author Organization [facility] in [place] Address [address] [place] [address] Care Team Providers Care Emergency Response Coordinator Name Role Phone Agustina Andrews Primary Care Provider Allergies No Known Allergies Results Component Value Reference Range Notes Occult Blood* Reviewed date:06/09/2024 12:49:56 PM Interpretation: Performing Lab: Notes/Report: [facility] , Occult Blood Positive Performing Lab:see noteML - [facility] LB Reason For Referral Diagnosis 1 Positive occult stoo l blood test (R19.5) Referral Organization [facility] Referring Provider First Name Agustina Referring Provider Last Name Juliana Referring Provider [facility] jeremiah Referred Provider Silvestre Means Referred Provider Specialty General Surg becky Referral Priority Routine Reason right arm paresthesi a Diagnosis 1 Paresthesia of arm ( R20.2) Referral Organization [facility] Referring Provider First Name Agustina Referring Provider Last Name Juliana Referring Provider Speciality [facility] jeremiah Referred Provider Cherry Pan Referred Provider Specialty Neurology Referral Priority Routine Medications Medication SIG (Take, Route, Frequency, Duration) Notes Start Date End Date Status NIFEdipine ER 60 MG TAKE 1 TABLET BY MOUTH EVERY DAY Oral; Duration: 90 days UnknownPantoprazole Sodium 40 MGTAKE 1 TABLET BY MOUTH EVERY DAY FOR 30 DAYS Once a day; Duration: 90 daysActiveClopidogrel Bisulfate 75 MG1 tablet Orally Once a dayUnknownSertraline HCl 50 MG3 tablet Orally Once a dayUnknown Atorvastatin Calcium 40 MG1 tablet Orally Once a dayUnknownAtenolol 100 MGTAKE 1 TABLET BY MOUTH EVERY DAY Oral Once a day; Duration: 90 daysActiveAspir-Low 81 MG1 tablet Orally Once a dayUnknownCholestyramine 4 GM/DOSEMIX 1 SCOOP IN DRINK AND TAKE ONCE EVERY DAY FOR 30 DAYS; Duration: 90 daysActive Social History Tobacco Use: Social History Observation Description Date Details (start date - stop date) Current Smoker NA - NA Alcohol Screen (Audit-C) Question Answer Notes Did you have a drink containing alcohol in the p ast year? Yes How often did you have 6 or more drinks on one occasion in the past year?Never (0 point)How many drinks did you have on a typical day when you were drinking in the past year?1 or 2 drinks (0 point)How often did you have a drink containing alcohol in the past year?Weekly (3 points)Jzasaa7IsfzcihavmeoozBupgbnoiVofnqux Control (Standard) Question Answer Notes Tobacco use: Current smoker How often do you smoke cigarettes?Every dayHow many cigarettes a day do you smoke?6-10AUDIT-C (Standard) Question Answer Notes Did you have a drink containing alcohol in the p ast year? Yes How often did you have a drink containing alcohol in the past year?Monthly or less (1 point)How many drinks did you have on a typical day when you were drinking in the past year?3 or 4 drinks (1 point)How often did you have six or more drinks on one occasion in the past year?2 to 3 times per week (3 points) Xkczvn4CbmuwagmmwrdbgHhuxxkjg Problems Problem Type SNOMED Code ICD Code Onset Dates Problem Status W/U Status Risk Notes Problem Alcohol abuse (06530273) Alcohol abuse, u ncomplicated (F10.10) ActiveconfirmedProblemRaynaud's disease (771192075)Raynaud's syndrome without gangrene (I73.00)ActiveconfirmedProblemDisorder of arteries and arterioles, unspecified (I77.9)ActiveconfirmedProblemGangrene (583176222)Gangrene, 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)ActiveconfirmedProblemElevated liver enzymes level (071334333)Elevated liver enzymes (R74.8)ActiveconfirmedProblem Hypertriglyceridemia (917241206)Hypertriglyceridemia (E78.1)Activeconfirmed ProblemAsthma-chronic obstructive pulmonary disease overlap syndrome (disorder) (55626694589140835)Asthma with COPD (J44.9)ActiveconfirmedProblemAbnormal feces (302472906)Positive occult stool blood test (R19.5)ActiveconfirmedProblem Paresthesia of arm (47292216)Paresthesia of arm (R20.2)ActiveconfirmedProblem CREST syndrome (87384693)CREST syndrome (M34.1)ActiveconfirmedProblemEmphysema (61065823)Emphysema (J43.9)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)ActiveconfirmedProblemPulmonary hypertension (86487960)Pulmonary hypertension (I27.20)Activeconfirmed Vital Signs Blood pressure diastolic 72 mm Hg 05/08/2025 Quvgao38 in05/08/2025lood pressure faxqfgvq743 mm Hg05/08/20251256Hymdjl377 lbs 05/08/2025BMI29.16 kg/m205/08/2025 Encounters Encounter Location Date Provider Diagnosis [facility] [address] [place] [address] 06/05/2024 Agustina Andrews [facility] [place] [address] 4Pnishant AndrewsPositive occult stool blood [facility] R19.5[facility] [place] [address]/4Pnishant [facility] [place] [address]/Agustina [facility] [place] [address]/Agustina [facility] [place] [address]/06/2025Agustina Andrews [facility] [place] [address] 05/01/2025[facility] [place] [address]/[facility] [address] [place] [address]/[facility] CramerParesthesia of arm R20.2[facility] [place] [address]/Pamela CramerWellness examination Z00.00 Assessments Encounter Date Diagnosis (ICD Code) Assessment Notes Treatment Notes Treatment Clinical Notes Section Notes 11/15/2024 Paresthesia of arm (ICD-10 - R20 .2) 05/08/2025Wellness examination (ICD-10 - Z00.00) ROS done exam done up to date colonoscopy follows with cardiology and rheum and ortho or spine now for right arm numbness 06/09/2024ositive occult stool blood test (ICD-10 - R19.5) Plan Of Treatment Pending Test Test Name Order Date CMP (COMPLETE METABOLIC PANEL) 4 HEMOGLOBIN A1C (GLYCO) 05/24/2024 HEMOGLOBIN A1C (GLYCO) 05/08/2025 INSULIN, TOTAL 05/08/2025 INSULIN, TOTAL 05/24/2024 LIPID PANEL (CHOL/TRIG/HDL/LDL) 05/08/20 25 LIPID PANEL (CHOL/TRIG/HDL/LDL) 05/24/20 24 CBC WITH DIFF 05/24/2024 URIC ACID 05/08/2025 URIC ACID 05/24/2024 PSA, TOTAL 05/24/2024 STOOL OCCULT BLOOD 05/24/2024 THYROID PANEL (T4/TSH/FREE T3) 4 THYROID PANEL (T4/TSH/FREE T3) 5 PSA, SCREENING 05/08/2025 CMP (COMP MET MANN) w/eGFR CKD-EPI 2024 CBC WITH DIFF 05/08/2025 Insurance Providers Payer Name Payer Address Payer Phone Subscriber Number Group Number Insured Name Patient Relationship to Insured Coverage Start Date Coverage End Date [employer] [address] [place] [address] [id number] Rocky Blairelf - patient is the insured Medications Administered Medication Instructions Date of Administration Dosage Notes Ceftriaxone 1 gram g Medical (General) History Surgical History Surgery Date(Month/Year) Gallbladder CholecystectomyColonoscopy Dr means08/03/2024
--- OUTSIDE RECORDS SUMMARY | 2025-06-04 07:20 | XMS_ITS | Encounter Summary ---
Author Organization [facility] Address [address] [place] [address] Care Team Providers Care Med Aide Name Role Phone Agustina Andrews CNP Primary Care Provider [phone] Encounter Details DateTypeDepartmentCare Team (Latest Contact Info)Uvvbksdvcyl63/06/2025Telephone [facility] Vascular and Endovascular Surgery [address] [place] [address] Lea Mcghee MA Social History Tobacco UseTypesPacks/DayYears UsedDateSmoking Tobacco: FormerCigarettesQuit: 06/18/2023assive Smoke Exposure: Never Comments:Taking chantix Humiliation, Afraid, Rape, and Kick questionnaireAnswerDate RecordedWithin the last year, have you been afraid of your partner or ex-partner?No06/18/2023 Emotionally AbusedNot on file06/18/2023hysically AbusedNot on file06/18/2023 Sexually AbusedNot on file06/18/2023Overall Financial Resource Strain (CARDIA) AnswerDate RecordedHow hard is it for you to pay for the very basics like food, housing, medical care, and heating?Not hard at all06/18/2023HQ-2AnswerDate RecordedPatient Health Questionnaire-2 Turht346UT Safety & Environment AnswerDate RecordedWithin the last year, have you been afraid of your partner or ex-partner?No06/18/2023Emotionally AbusedNot on file06/18/2023hysically Abused Not on file06/18/2023Sexually AbusedNot on file06/18/2023In the past year have you been physically or sexually abused?Unrecognized value06/18/2023 TransportationAnswerDate RecordedIn the past 12 months, has lack of transportation kept you from medical appointments or from getting medications?No 06/18/2023Lack of Transportation (Non-Medical)Not on file06/18/2023Housing Stability Vital SignAnswerDate RecordedUnable to Pay for Housing in the Last YearNot on file06/18/2023Number of Places Lived in the Last YearNot on file 06/18/2023In the last 12 months, was there a time when you did not have a steady place to sleep or slept in ashelter (including now)?No06/18/2023Hunger Vital SignAnswerDate RecordedWithin the past 12 months, you worried that your food would run out before you got the money to buymore.Never true06/18/2023Ran Out of Food in the Last YearNot on file06/18/2023Sex and Gender InformationValueDate RecordedSex Assigned at EcbclAtcq17/25/2023 10:34 AM ESTLegal VdwOety2401/21/2022 11:52 PM EDTGender YhtvxlemVdqi09/25/2023 10:34 AM ESTSexual Orientation Heterosexual or Bvzhedfn06/25/2023 10:34 AM ESTdocumented as of this encounter Miscellaneous Notes * Telephone Encounter - Lea Mcghee MA - 05/31/2025 11:32 AM EST Called pt to reschedule appt on 06/08/25 due to testing not being completed however did want to come to [place] for appt then put on phone to discuss the information of appt however stated his rash was getting better and not worried about the varicose veins therefore to cancel appt at this time documented in this encounter Plan of Treatment Not on file documented as of this encounter Visit Diagnoses Not on filedocumented in this encounter Care Teams Team MemberRelationshipSpecialtyStart DateEnd Date Agustina Andrews CNP [address] [place] [address], [place] [address] PCP - GeneralFamily Fhfbigid78/25/23documented as of this encounter
--- OUTSIDE RECORDS SUMMARY | 2025-06-04 07:20 | XMS_ITS | Clinical Summary ---
Author Organization [facility] Address [address] [place] [address] Care Team Providers Care Rail Car Mechanic Name Role Phone Agustina Andrews CNP Primary Care Provider [phone] Allergies No known active allergies Medications MedicationSigDispense QuantityRefillsLast FilledStart DateEnd DateStatus atenolol (Tenormin) 100 mg tablet Take by mouth in the morning.Active varenicline (Chantix) 1 mg tablet Take 1 mg by mouth in the morning and at bedtime. Take with full glass of water. Active NIFEdipine CC (Adalat CC) 60 mg 24 hr tablet Take 60 mg by mouth before breakfast. Do not crush, chew, or split.Active sertraline (Zoloft) 100 mg tablet Take 100 mg by mouth in the morning.Active omeprazole OTC (PriLOSEC OTC) 20 mg EC tablet Take 20 mg by mouth at bedtime. Do not crush, chew, or split.Active atorvastatin (Lipitor) 40 mg tablet Indications:Raynaud's disease with gangrene (CMS/HCC)Take 1 tablet (40 mg) by mouth at bedtime. 90 tablet ctive aspirin 81 mg EC tablet Indications:Raynaud's disease with gangrene (CMS/HCC)TAKE 1 TABLET BY MOUTH IN THE MORNING, DO NOT START BEFORE JUNE 20, 2023 30 tablet ctive clopidogrel (Plavix) 75 mg tablet Indications:Raynaud's disease with gangrene (CMS/HCC)TAKE 1 TABLET (75 MG) BY MOUTH IN THE MORNING 30 tablet 5Active Active Problems ProblemNoted DateDiagnosed DateDry vbzqozxa22/24/2023 Assessment & Plan (06/30/2023 10:47 AM EST): I can follow-up with dermatology. Continue best medical therapy. Continue smoking cessation. Continue calcium channel ekta. Encounters DateTypeDepartmentCare CosqWqmlejcftan61/06/2025Telephone [facility] Vascular and Endovascular Surgery [address] [place] [address] Lea Mcghee MA 05/17/2025Ref[facility] [address] [place] [address] Kimber Wu PA-C Raynaud's disease with gangrene (CMS/HCC)05/16/2025[facility] [address] [place] [address] Kimber Wu PA-C Raynaud's disease with gangrene (CMS/HCC)from Last 3 Months Social History Tobacco UseTypesPacks/DayYears UsedDateSmoking Tobacco: FormerCigarettesQuit: 06/18/2023assive Smoke Exposure: Never Tobacco Cessation:Counseling Given: Not Answered Comments:Taking chantix Humiliation, Afraid, Rape, and Kick questionnaireAnswerDate RecordedWithin the last year, have you been afraid of your partner or ex-partner?No06/18/2023 Emotionally AbusedNot on file06/18/2023hysically AbusedNot on file06/18/2023 Sexually AbusedNot on file06/18/2023Overall Financial Resource Strain (CARDIA) AnswerDate RecordedHow hard is it for you to pay for the very basics like food, housing, medical care, and heating?Not hard at all06/18/2023HQ-2AnswerDate RecordedPatient Health Questionnaire-2 Yyqzn831UT Safety & Environment AnswerDate RecordedWithin the last [...] file06/18/2023Sex and Gender InformationValueDate RecordedSex Assigned at VvkhoPori15/25/2023 10:34 AM ESTLegal TivBabl0601/21/2022 11:52 PM EDTGender SjsogvciMnlm58/25/2023 10:34 AM ESTSexual Orientation Heterosexual or Bsuaszxd28/25/2023 10:34 AM EST Last Filed Vital Signs Vital SignReadingTime TakenCommentsBlood Pbbogzij833/7801 10:29 AM EST Vutvd6254 10:29 AM TMSXxauajxdzqh41.8 ??C (98.2 ??F)08/08/2024 10:29 AM ESTRespiratory Wvob171608/31/2022 9:42 AM ESTOxygen Sxhvpxfify77%06/18/2023 2:27 PM ESTInhaled Oxygen Concentration--Evlfcb46.3 kg (210 lb)08/08/2024 10:29 AM GCSPmeiac361.9 cm (6')06/30/2023 9:42 AM ESTBody Mass Index28.4806/30/2023 9:42 AM EST Plan of Treatment Health MaintenanceDue DateLast DoneCommentsCT Nnrwrzmijqsd77/22/1974FOBT 1973 0867Hkwwjyhlvhcoa37/22/1974Hepatitis B Vaccines (1 of 3 - 19+ 3-dose series)1992Pneumococcal Vaccine: Pediatrics (0 to 5 Years) and At-Risk Patients (6 to 64 Years) (1 of 2 - PCV)1992Adult Ntklify9108/16/1995FIT /03/2022Zoster Vaccines (1 of 2)2023FIT-DNA01/31/2025 01/31/2022OVID-19 Vaccine (3 - 2024- season)/01/2021, 04/10/2021 Influenza Vaccine (#1)2025Depression Pbojzulaj52/14/375334/ Necygdbmnsq93/29/091160/olorectal Cancer Orhkxmstx28/29/2035HIB Vaccines Aged OutNo longer eligible based on patient's age to complete this topicHPV VaccinesAged OutNo longer eligible based on patient's age to complete this topic IPV VaccinesAged OutNo longer eligible based on patient's age to complete this topicMeningococcal B VaccineAged OutNo longer eligible based on patient's age to complete this topicMeningococcal VaccineAged OutNo longer eligible based on patient's age to complete this topicRotavirus VaccinesAged OutNo longer eligible based on patient's age to complete this topic Insurance * Guarantor: Omer Blair TypeRelation to PatientDate of BirthPhone Billing AddressPersonal/NrbisoUzdh38/[birth year][address] [address] Advance Directives * Full Code (Latest Code Status on File) Date ActivatedDate EztpqhxubztEbulyhas13/24/2023 3:28 PM06/19/2023 6:20 PM Care Teams Team MemberRelationshipSpecialtyStart DateEnd Date Agustina Andrews CNP [address] [place] [address], [facility] [address] PCP - GeneralFamily Ovueibbp65/25/23
--- OUTSIDE RECORDS SUMMARY | 2025-06-04 07:20 | XMS_ITS | CCD ---
Author Organization [facility] Care Team Providers Care Engine Monitor Name Role Phone HOUSE, DR CROOKS Consulting [...] Provider DO Keagan Oro Primary Care Provider [phone] KAVYA Benitez Primary Care Provider DO Bryon Moffett Emergency Provider RITU Koenig Attending Provider [phone] MD Williams Coronado Attending Provider [phone] DO Keagan Oro Primary Care Provider [phone] RITU Koenig Attending Provider [phone] KAVYA Benitez Primary Care Provider DO Enrico Mc Attending Provider [phone] Emmanuel, EXHIBITION CARVER-C Agustina Michaela Primary Care Provider [phone] MD Efren Esteves Attending Provider Emmanuel EXHIBITION CARVER-C, Agustina Michaela Primary Care Provider Efren Esteves MD Attending Provider AGUSTINA BENITEZ Primary Care Physician Silvestre Yanes MD Attending Provider [place]meyer EXHIBITION CARVER-C, Jenny Hinojosa Attending Provider Emmanuel EXHIBITION CARVER-C, Agustina Michaela Primary Care Provider Silvestre YANES Attending Unavailable AGUSTINA BENITEZ S Referring Unavailable Silvestre YANES Attending Unavailable Silvestre YANES Attending Unavailable [place]meyer EXHIBITION CARVER-C, Jenny Hinojosa Attending Provider Emmanuel EXHIBITION CARVER-C, Agustina Michaela Primary Care Provider Enrico Mc DO Attending Provider Emmanuel EXHIBITION CARVER-C, Agustina Michaela Primary Care Provider Enrico Mc DO Other Provider [phone] Efren Esteves MD Attending Provider Gary Hart MD Attending Provider [phone] Cherry Pan DO Attending Provider Emmanuel EXHIBITION CARVER-C, Agustina Michaela Primary Care Provider Iris Livingston APRN Attending Provider Emmanuel EXHIBITION CARVER-C, Agustina Michaela Primary Care Provider Emmanuel EXHIBITION CARVER-C, Agustina Michaela Primary Care Provider [phone] Cherry Pan DO Attending Provider Cherry Pan Admitting Unavailable Cherry Pan Attending Unavailable Emmanuel, Agustina Michaela Primary Care Unavailable Iris Livingston Admitting Unavailable Iris Livingston Attending Unavailable Emmanuel, Agustina Michaela Primary Care Unavailable ObJenny clifford Admitting Unavailable ObJenny clifford Attending Unavailable Emmanuel, Agustina Michaela Primary Care Unavailable Silvestre Yanes Admitting Unavailable Silvestre Yanes Attending Unavailable Enrico Mc Admitting Unavailable Enrico Mc Attending Unavailable Agustina Benitez Primary Care Unavailable MALLORIE LUGO Attending Unavailable Allergies Allergy ClassificationReported Allergen(s)Allergy TypeDate of OnsetReaction(s) Facility (1 source)No Known Medication Allergies; Translations: [No Known Medication Allergies]Propensity to adverse reactions (disorder)[facility] Repository Medications Current Medications MedicationDrug Class(es)DatesSig (Normalized)Sig (Original)[id number] 200 actuat albuterol 0.09 mg/actuat metered dose inhaler (17 sources)beta2-Adrenergic AgonistStart: 06-15-2024 End: 19-18-2184epeu 1 puff(s) by inhalation every four hours as needed for wheezingaspirin 81 mg delayed release oral tablet (9 sources)Platelet Aggregation Inhibitor, Nonsteroidal Anti-inflammatory Drug Start: 02-16-9821brwq 1 tablet by mouth once dailyStart: 25-94-7840qvjb 1 tablet by mouth once dailyaspirin 81 mg Oral EC Tab 81 mg = 1 tab(s), Oral, Daily, Refills(s) 0 Start Date: 07/03/24 Status: Orderedatenolol 100 mg oral tablet (20 sources)beta-Adrenergic BlockerStart: 65-74-6669bwvb 1 tablet by mouth once dailyatenolol 100 mg Tab 100 mg = 1 tab(s), Oral, Daily, Refills(s) 0 Start Date: 07/03/24 Status: OrderedStart: 70-94-3835Tlflv: 38-58-1581kido 150 mg by mouth once dailyAtenolol Active 150 MG PO Daily June 18, 2023 1:00amStart: 06-86-2450zqov 100 mg by mouth once dailyAtenolol Active 100 MG PO Daily June 18, 2023 12:00amtake 1 tablet by mouth every twenty-four hours Atenolol 100 MG 1 tablet Orally Once a day Activeatorvastatin 40 mg oral tablet (9 sources)HMG-CoA Reductase InhibitorStart: 54-90-1564zmmj 1 tablet by mouth once dailyStart: 68-97-4568mjdl 1 tablet by mouth once dailyatorvastatin 40 mg Tab 40 mg = 1 tab(s), Oral, Daily, Refills(s) 0 Start Date: 07/03/24 Status: Orderedcholestyramine resin 4000 mg powder for oral suspension (17 sources)Bile Acid SequestrantStart: 78-11-9685yppp 1 dose by mouth twice dailyclopidogrel 75 mg oral tablet (19 sources)P2Y12 Platelet InhibitorStart: 85-82-6798qiwq 1 tablet by mouth once pfiebJxspvobtfik-Xvqlpaukk-Wjgghvun (6 sources)Start: 44-39-0890Liuva: 84-19-9152Idbsigtveej-Umeclidin-Vilanter (Trelegy Ellipta) 200-62.5-25 mcg blister with device Active 1 INH INHALATION Daily December 27, 2024 12:00am Complies with drug therapypantoprazole 40 mg delayed release oral tablet (9 sources)Proton Pump InhibitorStart: 53-21-5212jwzk 1 tablet by mouth once dailyStart: 55-09-0464rlia 1 tablet by mouth once dailyPantoprazole [address] Tab 40 mg = 1 tab(s), Oral, Daily, Refills(s) 0 Start Date: 07/03/24 Status: Ordered sertraline 50 mg oral tablet (20 sources)Serotonin Reuptake InhibitorStart: 02-60-4849vuyc 3 tablets by mouth once dailyZoloft 50 mg Tab 150 mg = 3 tab(s), Oral, Daily, Refills(s) 0 Start Date: 07/03/24 Status: OrderedStart: 41-97-1690ukpz 1 tablet by mouth once daily take 1 tablet by mouth every twenty-four hoursSertraline HCl 100 MG 1 tablet Orally Once a day ActiveVarenicline 0.5 mg (11)- 1 mg (42) tablets,dose pack (1 source)Start: 76-87-3342jmmc 1 tablet by mouth onceVarenicline 0.5 mg (11)- 1 mg (42) tablets,dose pack Active 0 PO per package directions 53 2023 12:00am = Starter PackVarenicline Tartrate 0.5 mg (11)- 1 mg (42) tablets,dose pack (4 sources)Start: 72-13-8373iiuk 1 tablet by mouth onceVarenicline Tartrate 0.5 mg (11)- 1 mg (42) tablets,dose pack Active 0 PO per package directions 53 June 15, 2024 1:00am = Starter PackStart: 95-27-8306lzka 1 tablet by mouth onceVarenicline Tartrate 0.5 mg (11)- 1 mg (42) tablets,dose pack Active 0 PO per package directions 53June 15, 2024 12:00am = Starter Pack Completed/Discontinued Medications MedicationDrug Class(es)DatesSig (Normalized)Sig (Original)cefdinir 300 mg oral capsule (18 sources)Cephalosporin AntibacterialStart: 06-18-2023 End: 65-98-3399ajki 1 capsule by mouth twice dailyCefdinir 300 mg capsule Discontinued 300 MG PO Twice daily June 18, 2023 1:00am July 07, 2023 8:19amdoxycycline monohydrate 100 mg oral capsule (18 sources)Tetracycline-class DrugStart: 06-18-2023 End: 86-31-5597fyjm 1 capsule by mouth twice dailyDoxycycline Monohydrate 100 mg capsule Discontinued 100 MG PO Twice daily June 18, 2023 1:00am July 07, 2023 8:19am X 10 DAYSgabapentin 100 mg oral capsule (6 sources)Anti-epileptic AgentStart: 01-24-2025 End: 75-66-7119kxmv 2 capsules by mouth once at bedtimeGabapentin (Neurontin) 100 mg capsule Discontinued 100 MG PO .COMPLEX January 24, 2025 12:00am March 07, 2025 9:29am 100 mg orally 1 po q am and 2 po q hs;mupirocin 0.02 mg/mg topical ointment (18 sources)RNA Synthetase Inhibitor AntibacterialStart: 06-18-2023 End: 71-26-9053Pzzffwcsg 2 % ointment Discontinued 0 .ROUTE .COMPLEX June 18, 2023 1:00am June 22, 2023 8:59am APPLY TO DISCOLORED AREASStart: 06-18-2023 End: 46-47-3245Yzxkolqyv Discontinued 0 .ROUTE .COMPLEX June 18, 2023 1:00am June 22, 2023 8:59am APPLY TO DISCOLORED AREAS24 hr NIFEdipine 90 mg extended release oral tablet (20 sources)Dihydropyridine Calcium Channel BlockerStart: 12-14-2024 End: 36-48-4631rcwp 1 tablet by mouth onceNifedipine 90 mg tablet extended release Discontinued 90 MG PO Once December 14, 2024 12:00am January 24, 2025 8:45am Start: 18-15-4249nsza 1 tablet by mouth once dailyNIFEdipine 60 mg ER Tab 60 mg = 1 tab(s), Oral, Daily, Refills(s) 0 Start Date: 07/03/24 Status: OrderedStart: 79-13-2856divr 1 tablet by mouth once dailytake 1 tablet by mouth every twenty- four hoursNIFEdipine ER 60 MG 1 tablet on an empty stomach Orally Once a day Activeomeprazole 20 mg delayed release oral capsule (20 sources)Proton Pump InhibitorStart: 06-18-2023 End: 07-20-0478ndox 1 capsule by mouth once dailyOmeprazole 20 mg Capsule,Delayed Release(Dr/Ec) Discontinued 20 MG PO Daily June 18, 2023 1:00am December 14, 2024 8:47amtake 1 capsule by mouth once dailyOmeprazole 20 MG 1 capsule 30 minutes before morning meal Orally Once a day ActivetraMADol hydrochloride 50 mg oral tablet (7 sources)Opioid AgonistStart: 12-14-2024 End: 56-60-1199lwsv 1 tablet by mouth every eight hours as neededTramadol 50 mg tablet Discontinued 50 MG PO Every 8 hours as needed December 14, 2024 12:00am January 24, 2025 8:45amvarenicline 1 mg oral tablet (20 sources)Partial Cholinergic Nicotinic AgonistStart: 06-15-2024 End: 61-34-1488yqwr 1 tablet by mouth onceVarenicline Tartrate 0.5 mg (11)- 1 mg (42) tablets,dose pack Discontinued 0 PO per package directions June 15, 2024 1:00am January 24, 2025 8:44am = Starter PackStart: 06-18-2023 End: 53-78-1592yucb 1 tablet by mouth twice dailyVarenicline Tartrate 1 mg tablet Discontinued 1 MG PO Twice daily 60 June 15, 2024 10:15amJun2024 2:48pm = Continuing packVarenicline Tartrate 1 MG as directed Orally Active Problems Active Problems Problem ClassificationProblemDateDocumented DateEpisodic/ChronicAlcohol-related disorders (2 sources)Alcohol txilt82-65-9480DegicwzUudotn (9 sources)Asthma-chronic obstructive pulmonary disease overlap syndrome; Translations: [Asthma-chronic obstructive pulmonary disease overlap syndrome] 27-25-0447GdnjsfyEimiggp obstructive pulmonary disease and bronchiectasis (20 sources)Chronic obstructive lung disease; Translations: [Chronic obstructive pulmonary disease, unspecified]ChronicDisorders of lipid metabolism (2 sources)Dlmlcqmkohzjjslvscrx57-07-5172AcejnunP Codes: Natural/environment (19 sources)Repetitive motion disorder; Translations: [Overexertion from repetitive movements, initial encounter]43-44-4718SwxjahxbRkgrdszess disorders (16 sources)Gastroesophageal reflux disease; Translations: [Gastro-esophageal reflux disease without esophagitis]19-60-6751NomjkshTrjxefch (20 sources)Raynaud's disease; Translations: [Raynaud's syndrome with gangrene] ChronicGangrene (5 sources)Gangrenous disorder; Translations: [Gangrene, not elsewhere classified]06-05-8785QvzwkssvBjneqmkz disorders (2 sources)Autoimmune disease; Translations: [Other specified disorders involving the immune mechanism, not elsewhere classified]30-59-1425MzolaygLjtbw and ill-defined heart disease (14 sources)Diastolic dysfunction; Translations: [Other ill-defined heart diseases]54-26-7392NctljebZsiow and ill-defined heart disease (6 sources)Other ill-defined heart diseases; Translations: [Heart disease, unspecified]55-11-3146BogzvnsAmmam and unspecified benign neoplasm (1 source)Polyp of colon; Translations: [Polyp of colon]Onset: 09-08-2024 EpisodicOther circulatory disease (2 sources)Raynaud's syndrome without gangrene; Translations: [Raynaud's syndrome]Onset: 477159-35-1866NohditfWwmdo circulatory disease (18 sources)Vascular disorder of extremity; Translations: [Disorder of arteries and arterioles, unspecified]99-89-0723QeweuqwMvyfl circulatory disease (17 sources)Thromboangiitis obliterans; 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]]18-16-5568BwdtznpGszmg circulatory disease (3 sources)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]; 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]]96-38-9208TdfsnfmSwyba connective tissue disease (20 sources)Other symptoms and signs involving the musculoskeletal system; Translations: [Weakness of right upper extremity]Onset: EpisodicOther diseases of veins and lymphatics (15 sources)Calcified lymph nodes; Translations: [Other specified noninfective disorders of lymphatic vessels and lymph nodes]86-11-5977FbvfueiMwecn diseases of veins and lymphatics (7 sources)Other specified noninfective disorders of lymphatic vessels and lymph nodes; Translations: [Other noninfectious disorders of lymphatic channels] 24-41-8301XjygwckTvfii gastrointestinal disorders (1 source)Abnormal feces; Translations: [Other fecal abnormalities]Onset: 22-06-6447EyhspkcrSeagf gastrointestinal disorders (2 sources)Occult blood in zcsmir00-22-0251FnllhzgpOjzqg gastrointestinal disorders (1 source)Hyperplastic polyp of lsgofxzht95-13-7018EcmccqvmBtkro lower respiratory disease (2 sources)Parietoalveolar pneumopathy; 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, unspecified]ChronicOther lower respiratory disease (16 sources)Interstitial lung disease; 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, unspecified]64-27-1769ZmuflgwXvgbv lower respiratory disease (3 sources)Nodule of lung; Translations: [Solitary pulmonary nodule]12-14-2023 EpisodicOther lower respiratory disease (2 sources)Solitary pulmonary noduleEpisodicOther lower respiratory disease (18 sources)Cavitation of lung; Translations: [Other disorders of lung] 88-06-3858LeublxafExhdq lower respiratory disease (7 sources)Other disorders of lung; Translations: [Other diseases of lung, not elsewhere classified]83-71-4253YgzmydzbBvhfk nervous system disorders (19 sources)Numbness and tingling sensation of skin; Translations: [Anesthesia of skin]51-56-0520BbhewoqaYndxo nervous system disorders (1 source)Paresthesia of right upper limb; Translations: [Paresthesia of skin] 76-77-3403BdyqtmdpJuyku nervous system disorders (1 source)Anesthesia of skin; Translations: [Anesthesia of skin]Onset: 14-62-6496PntkhvzxIabeu nutritional; endocrine; and metabolic disorders (2 sources)Mybzdbodqy73-47-5981WvjwwyqrBjzrs nutritional; endocrine; and metabolic disorders (2 sources)Overweight in adulthood with body mass index of 25 or more but less than 0780-80-2681CvdecrsjWgxhk screening for suspected conditions (not mental disorders or infectious disease) (2 sources)Radiology result abnormal; Translations: [Abnormal findings on diagnostic imaging of other specified body structures]ChronicPulmonary heart disease (20 sources)Secondary pulmonary hypertension; Translations: [Other secondary pulmonary hypertension]99-58-1154GnmspnhXuifdkc on above:Echocardiogram:- 07/22/2023: RVSP 43mmHg-12/10/2022: RVSP 18mmHgResidual codes; unclassified (17 sources)Pain; Translations: [Pain, unspecified]21-73-3696JhaqmzojCljwwczk codes; unclassified (4 sources)Tobacco user; Translations: [Tobacco use]75-09-8459DszujzicAonmzupe codes; unclassified (1 source)Pain, unspecified; Translations: [Generalized pain]23-27-0564Kuxrenje Residual codes; unclassified (2 sources)Tobacco use; Translations: [Tobacco use disorder]60-60-8435Ofjhoarg Substance-related disorders (20 sources)Tobacco user; Translations: [Nicotine dependence, unspecified, uncomplicated]ChronicSystemic lupus erythematosus and connective tissue disorders (20 sources)CREST syndrome; 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]Onset: 09-19-2024 55-13-4595WijfksvWsypqaxupztw (3 sources)CONTACT W/AND (SUSP) EXPOS COVID-19; Translations: [CONTACT W/AND (SUSP) EXPOS COVID-19]Onset: 70-46-7821Uklfgezzkqiw (4 sources)Inflammatory disorder; Translations: [Inflammation]06-22-2023 Unclassified (4 sources)R29.898 - Other symptoms and signs involving the musculoskeletal system,X50.3XXA - Overexertion from repetitive movements, initial encounter,R20.0 - Anesthesia of skin,R20.2 - Paresthesia of skinViral infection (1 source)COVID-19; Translations: [COVID-19]Onset: 07-11-2022 Past or Other Problems Problem ClassificationProblemDateDocumented DateEpisodic/ChronicOther skin disorders (2 sources)Rash and other nonspecific skin eruption; Translations: [Rash and other nonspecific skin eruption]Onset: 41-04-0123CqmjznzfRmkjttehvpnf (1 source)CONTACT W/AND (SUSP) EXPOS COVID-19; Translations: [CONTACT W/AND (SUSP) EXPOS COVID-19]Onset: 07-13-2022 Results Test NameValueInterpretationReference PrlamHgrynocf23ii 08-13-029927Fizmly pt to reschedule appt on 06/08/25 due to testing not being completed however did want to come to [place] for appt then put on phone to discuss the information of appt however stated his rash was getting better and not worried about the varicose veins therefore [facility]00[facility] wo [facility] [place] [address] MRI Report Signed Patient: Ritchie Thorne MR#: [id number] : 1975 Acct:[id number] Age/Sex: 49 / M ADM Date: 05/09/25 Loc: [facility] Room: Type: [facility] Attending Dr: Iris Livingston APRN Copies to: Iris Livingston APRN Ordering Provider: Iris Livingston APRN Date of Service: 05/09/25 MR/MR cervical spine wo con: R20.0,R29.898,R20.2 EXAMINATION: MRI OF THE CERVICAL SPINE WITHOUT CONTRAST CLINICAL DATA: Neck pain radiating into the right arm, paresthesias 3 months TECHNIQUE: Multiecho imaging was performed in the sagittal and axial plane without contrast administration. COMPARISON: None FINDINGS: Craniocervical junction is intact. This mild edema along the longus colli muscles at the craniocervical junction. Additionally, there is effusion along the both occipital condyles. Mild reversal normal cervical lordosis. Moderate intervertebral space narrowing C5-C6 with associated predominantly Modic 2 endplate changes. Superior plate Schmorl's node at C7. There is mild motion on the axial images degrading evaluation of the degenerative changes. Prevertebral and paraspinal soft tissues otherwise unremarkable. C2-3: Facet arthropathy. No significant disc disease, canal or neural foraminal narrowing identified. C4-C5: Broad-based disc bulge with right greater than left uncovertebral spurring causing moderate severe right moderate left neural foraminal. Mild central stenosis. C4-C5: Broad-based bulge with bilateral uncovertebral spurring probably right- sided causing moderate severe right and moderate left-sided neural foraminal narrowing. Mild central canal stenosis C5-6: Broad-based disc osteophyte complex predominant right-sided uncovertebral spurring right greater than left causing severe right and moderate severe left neural foraminal narrowing. Moderate central canal stenosis C6-C7: Broad-based disc osteophyte complex with bilateral uncovertebral spurring causing moderate severe neural foraminal narrowing and enle-uo-tmfysmaf central stenosis. C7-T1: Uncovertebral spurring and facet arthropathy causing mild neural foraminal narrowing. MR/MR cervical spine wo con IMPRESSION: Multilevel degenerative changes predominantly right-sided from C4 through C7. Most severe at C5-C6. Moderate central canal stenosis at C5-6 Mild edema along the longus colli muscles noted may raise possibility for tendinitis of the longus colli muscles Impression dictated by: Jayson Pettit M.D. 05/09/2025 10:34 AM Dictation Location: [place] [address] Transcribed By: EVELYN 05/09/25 1034 Dictated By: Jayson Pettit MD 05/09/25 1022 Signed By: 05/09/[address] [facility] Physician GroupMagnetic resonance imaging reportOrdered By: Jayson Pettit on 67-02-1411Gvwgi reportTOLEDO [facility] [place] [address] [place] [address] MRI Report Signed Patient: Ritchie Thorne MR#: [id number] : 1975 Acct:[id number] Age/Sex: 49 / M ADM Date: 5 [facility] Attending Dr: Iris Livingston APRN Copies to: Iris Livingston APRN~ Ordering Provider: Iris Livingston APRN Date of Service: 05/09/25 MR/MR cervical spine wo con: R20.0,R29.898,R20.2 EXAMINATION: MRI OF THE CERVICAL SPINE WITHOUT CONTRAST CLINICAL DATA: Neck pain radiating into the right arm, paresthesias 3 months TECHNIQUE: Multiecho imaging was performed in the sagittal and axial plane without contrast administration. COMPARISON: None FINDINGS: Craniocervical junction is intact. This mild edema along the longus colli muscles at the craniocervical junction. Additionally, there is effusion along the both occipital condyles. Mild reversal normal cervical lordosis. Moderate intervertebral space narrowing C5-C6 with associated predominantly Modic 2 endplate changes. Superior plate Schmorl's node at C7. There is mild motion on the axial images degrading evaluation of the degenerative changes. Prevertebral and paraspinal soft tissues otherwise unremarkable. C2-3: Facet arthropathy. No significant disc disease, canal or neural foraminalnarrowing identified. C4-C5: Broad-based disc bulge with right greater than left uncovertebral spurring causing moderate severe right moderate left neural foraminal. Mild central stenosis. C4-C5: Broad-based bulge with bilateral uncovertebral spurring probably right- sided causing moderate severe right and moderate left-sided neural foraminal narrowing. Mild central canal stenosis C5-6: Broad-based disc osteophyte complex predominant right-sided uncovertebral spurring right greater than left causing severe right and moderate severe left neural foraminal narrowing. Moderate central canal stenosis C6-C7: Broad-based disc osteophyte complex with bilateral uncovertebral spurringcausing moderate severe neural foraminal narrowing and kvej-rq-dtycelgt central stenosis. C7-T1: Uncovertebral spurring and facet arthropathy causing mild neural foraminal narrowing. MR/MR cervical spine wo con IMPRESSION: Multilevel degenerative changes predominantly right-sided from C4 through C7. Most severe at C5-C6. Moderate central canal stenosis at C5-6 Mild edema along the longus colli muscles noted may raise possibility for tendinitis of the longus colli muscles Impression dictated by: Jayson Pettit M.D. 05/09/2025 10:34 AM Dictation Location: [place] [address] Transcribed By: EVELYN 05/09/25 103 Dictated By: Jayson Pettit MD 05/09/25 1022 Signed By: 05/09/254 [facility] Work Phone: Alanine aminotransferase [Enzymatic activity/volume] in Serum or PlasmaOrdered By: Jenny Pop on 48-60-8839SCK [Catalytic activity/Vol]Alanine aminotransferase [Enzymatic activity/volume] in Serum or Plasma7-52[facility] HospitalAlbumin [Mass/volume] in Serum or Plasma by Bromocresol green (BCG) dye binding methoOrdered By: Jenny Pop on 44-68-7821Ddwkccm BCG dye [Mass/Vol]Albumin [Mass/volume] in Serum or Plasma by Bromocresol green (BCG) dye binding metho3.5-5.7FBarney Children's Medical CenterAlkaline phosphatase [Enzymatic activity/volume] in Serum or PlasmaOrdered By: Jenny Pop on 82-91-9093PYC [Catalytic activity/Vol]Alkaline phosphatase [Enzymatic activity/volume] in Serum or PdywmlTwef79-216MjbrbyyzoSt. John Of God HospitalAppearance of UrineOrdered By: Jenny Pop on 09-19-2024 Appearance (U)Urine appearanceCleMercy Health St. Elizabeth Boardman HospitalAspartate aminotransferase [Enzymatic activity/volume] in Serum or PlasmaOrdered By: Jenny Pop on 24-89-5958EKL [Catalytic activity/Vol]Aspartate aminotransferase [Enzymatic activity/volume] in Serum or Jjlwmz63-27AqurtywgnSt. John Of God HospitalBacteria [Presence] in Urine by AutomatedOrdered By: Jenny Pop on 76-37-2529Jlwacmpa Auto Ql (U)Bacteria [Presence] in Urine by AutomatedNone Seen St[facility] HospitalBasophils Auto (Bld) [#/Vol]Ordered By: Jenny Pop on 03-27-5159Ilsqjhxwo (Bld) [#/Vol]Automated basophil count0.0-0.2 [facility] HospitalBasophils/100 WBC Auto (Bld)Ordered By: Jenny Pop on 82-01-7796Mkhzbfjes/100 WBC (Bld)Automated basophil %.St. [facility] HospitalBilirubin Test strip Ql (U)Ordered By: Jenny Pop on 63-18-9420Xwhbsnxho Ql (U)Bilirubin.total [Presence] in Urine by Test strip NegativeSt. John Of God HospitalBilirubin.total [Mass/volume] in Serum or PlasmaOrdered By: Jenny Pop on 16-69-7678Xgljdbanj [Mass/Vol] Bilirubin.total [Mass/volume] in Serum or Plasma0.3-1.0St. [facility] HospitalC reactive protein [Mass/volume] in Serum or PlasmaOrdered By: Jenny Pop on 49-03-1167WIB [Mass/Vol]C reactive protein [Mass/volume] in Serum or PlasmaHigh0.0-0.5FBarney Children's Medical CenterC-Reactive Proteinon 55-12-2977W-Reactive Protein2.9 mg/dLHigh0.0-0.5[facility] Comment on above:Result Comment: PERFORMED BY: [address] [place] [address] PATHOLOGIST FROG SHAKER JUAN RAMON CORLEY M.D.Performed By: #### C3, CH50, C4 #### [facility] , #### CBC, CRP, CMP, ADDONUAPLUS, ESR #### [place] [address] USACalcium [Mass/volume] in Serum or PlasmaOrdered By: Jenny Pop on 64-81-8280Lnqfpha [Mass/Vol]Calcium [Mass/volume] in Serum or Plasma8.6-10.3FBarney Children's Medical CenterCarbon dioxide, total [Moles/volume] in Serum or PlasmaOrdered By: Jenny Pop on 26-77-0242TB3 [Moles/Vol]Carbon dioxide, total [Moles/volume] in Serum or DkdqmwNfz74.0-31.0 [facility] God HospitalChloride [Moles/volume] in Serum or Plasma Ordered By: Jenny Pop on 89-84-3148Hlpdfifm [Moles/Vol]Chloride [Moles/volume] in Serum or Mgoyfm87-770Gnrfybgfw[address] [place], [place] [address]Color Auto (U)Ordered By: Jenny Pop on 10-65-4803Dlbcb (U)Color of Urine by Auto [facility] HospitalComplement C3on 97-94-6322Sorifdcwco C3 193 mg/yESuyo16-901Rqd [facility] Physician GroupComment on above:Result Comment: Performed at: [facility] [employer] [id number] [employer]: Javier Dominguez PhD, Phone: [phone] By: #### C3, CH50, C4 #### [facility] , #### CBC, CRP, CMP, ADDONUAPLUS, ESR #### [facility] [address] [place] [address] USAComplement C4on 76-80-8107Ymipaudxcm C451 mg/rKKqrq63-70 The [facility] Physician [facility] Community HospitalComment on above:Result Comment: PERFORMED BY: [place] [address] PATHOLOGIST FROG SHAKER JUAN RAMON CORLEY M.D.Performed By: #### C3, CH50, C4 #### [facility] , #### CBC, CRP, CMP, ADDONUAPLUS, ESR #### [facility] [address] [place] [address] USAComplement Total (CH50)on 48-55-9104Qramleonlf Total (CH50)>60Normal>41The [facility] Physician [facility] Community HospitalComment on above:Result Comment: Age Male Female 1 - 30 [...] determine out of range values. Performed at: [employer] [id number] [employer]: Javier Dominguez PhD, Phone: [phone] PERFORMED BY: [place] [address] PATHOLOGIST FROG SHAKER JUAN RAMON CORLEY M.D.Performed By: #### C3, CH50, C4 #### [facility] , #### CBC, CRP, CMP, ADDONUAPLUS, ESR #### [place] [address] USAComplete Blood Count Auto Diffon 78-18-4834Sbwgyqiso (Bld) [#/Vol]0.1 10*3/uLNormal0.0-0.2The [facility] Physician GroupComment on above: Performed By: #### C3, CH50, C4 #### [facility] , #### CBC, CRP, CMP, ADDONUAPLUS, ESR #### [place] [address] USABasophils/100 WBC (Bld)0.9 %Normal.The [facility] Physician GroupComment on above:Performed By: #### C3, CH50, C4 #### [facility] , #### CBC, CRP, CMP, ADDONUAPLUS, ESR #### [place] [address] USAEosinophils (Bld) [#/Vol]0.0 10*3/uLNormal0.0-0.45The [facility] Physician GroupComment on above:Performed By: #### C3, CH50, C4 #### [facility] , #### CBC, CRP, CMP, ADDONUAPLUS, ESR #### [place] [address] USAEosinophils/100 WBC (Bld)0.5 %Normal.The [facility] Physician GroupComment on above:Performed By: #### C3, CH50, C4 #### [facility] , #### CBC, CRP, CMP, ADDONUAPLUS, ESR #### [place] [address] USAErythrocyte distribution width (RBC) [Ratio]13.9 %Normal 12.0-14.8The [facility] Physician GroupComment on above:Performed By: #### C3, CH50, C4 #### [facility] , #### CBC, CRP, CMP, ADDONUAPLUS, ESR #### [place] [address] USAHematocrit (Bld) [Volume fraction]40.7 %Rwfjde96.8-50.0The [facility] Physician GroupComment on above:Performed By: #### C3, CH50, C4 #### [facility] , #### CBC, CRP, CMP, ADDONUAPLUS, ESR #### [place] [address] USAHemoglobin (Bld) [Mass/Vol]14.1 g/sWBhyjot65.0-17.0The [facility] Physician GroupComment on above:Performed By: #### C3, CH50, C4 #### [facility] , #### CBC, CRP, CMP, ADDONUAPLUS, ESR #### [place] [address] USALymphocytes (Bld) [#/Vol]1.6 10*3/uLNormal1.00-4.8The [facility] Physician GroupComment on above:Performed By: #### C3, CH50, C4 #### [facility] , #### CBC, CRP, CMP, ADDONUAPLUS, ESR #### [place] [address] USALymphocytes/100 WBC (Bld)16.9 %Normal.The [facility] Physician GroupComment on above:Performed By: #### C3, CH50, C4 #### [facility] , #### CBC, CRP, CMP, ADDONUAPLUS, ESR #### [address] (RBC) [Entitic mass]33.6 atHwcvfb69.5-35.2The [facility] Physician GroupComment on above:Performed By: #### C3, CH50, C4 #### [facility] , #### CBC, CRP, CMP, ADDONUAPLUS, ESR #### [address] (RBC) [Entitic vol]97.1 tEPvdaas87.5-101The [facility] Physician GroupComment on above:Performed By: #### C3, CH50, C4 #### [facility] , #### CBC, CRP, CMP, ADDONUAPLUS, ESR #### [place] [address] USAMean Corpuscular HGB Conc34.6 g/hWXtfmsc46.5-35.6The [facility] Physician GroupComment on above:Performed By: #### C3, CH50, C4 #### [facility] , #### CBC, CRP, CMP, ADDONUAPLUS, ESR #### [facility] [address] [place] [address] USAMonocytes (Bld) [#/Vol]1.1 10*3/uLHigh0.0-0.8The [facility] Physician GroupComment on above:Performed By: #### C3, CH50, C4 #### [facility] , #### CBC, CRP, CMP, ADDONUAPLUS, ESR #### [facility] [address] [place] [address] USAMonocytes/100 WBC (Bld)12.1 %Normal.The [facility] Physician GroupComment on above:Performed By: #### C3, CH50, C4 #### [facility] , #### CBC, CRP, CMP, ADDONUAPLUS, ESR #### [place] [address] USANeutrophils (Bld) [#/Vol]6.5 10*3/uLNormal1.8-7.7The [facility] Physician GroupComment on above:Performed By: #### C3, CH50, C4 #### [facility] , #### CBC, CRP, CMP, ADDONUAPLUS, ESR #### [facility] [address] [place] [address] USANeutrophils/100 WBC (Bld)69.6 %Normal.The [facility] Physician GroupComment on above:Performed By: #### C3, CH50, C4 #### [facility] , #### CBC, CRP, CMP, ADDONUAPLUS, ESR #### [facility] [address] [place] [address] USANRBC%0.1 /100{WBC}Normal0-0.5The [facility] Group Comment on above:Performed By: #### C3, CH50, C4 #### [facility] , #### CBC, CRP, CMP, ADDONUAPLUS, ESR #### [facility] [address] [place] [address] USAPlatelet mean volume (Bld) [Entitic vol]8.7 fLNormal 6.6-10.1The [facility] Physician GroupComment on above:Performed By: #### C3, CH50, C4 #### [facility] , #### CBC, CRP, CMP, ADDONUAPLUS, ESR #### [facility] [address] [place] [address] USAPlatelets (Bld) [#/Vol]226 10*3/tDQbeili207-609Dhe [facility] Physician GroupComment on above:Performed By: #### C3, CH50, C4 #### [facility] , #### CBC, CRP, CMP, ADDONUAPLUS, ESR #### [facility] [address] [place] [address] USARBC (Bld) [#/Vol]4.19 10*6/uLNormal3.90-5.60The [facility] Physician GroupComment on above:Performed By: #### C3, CH50, C4 #### [facility] , #### CBC, CRP, CMP, ADDONUAPLUS, ESR #### [facility] [address] [place] [address] USAWBC (Bld) [#/Vol]9.3 10*3/uLNormal4.1-10.5The [facility] Physician GroupComment on above:Performed By: #### C3, CH50, C4 #### [facility] , #### CBC, CRP, CMP, ADDONUAPLUS, ESR #### [place] [address] USAComprehensive Metabolic Panelon 06-82-0842Usxfkoy [Mass/Vol]4.2 g/dLNormal3.5-5.7The [facility] Physician GroupComment on above: Performed By: #### C3, CH50, C4 #### [facility] , #### CBC, CRP, CMP, ADDONUAPLUS, ESR #### [facility] [address] [place] [address] USAAlbumin/Globulin [Mass ratio]1.4 {ratio}NormalThe [facility] Physician GroupComment on above:Performed By: #### C3, CH50, C4 #### [facility] , #### CBC, CRP, CMP, ADDONUAPLUS, ESR #### [facility] [address] [place] [address] USAALP [Catalytic activity/Vol]108 U/VZwri25-217Jte [facility] Physician GroupComment on above:Performed By: #### C3, CH50, C4 #### [facility] , #### CBC, CRP, CMP, ADDONUAPLUS, ESR #### [facility] [address] [place] [address] USAALT [Catalytic activity/Vol]37 U/LNormal7-52The [facility] Physician GroupComment on above:Performed By: #### C3, CH50, C4 #### [facility] , #### CBC, CRP, CMP, ADDONUAPLUS, ESR #### [place] [address] USAAnion gap [Moles/Vol]18.2 mmol/LHigh6.0-15.0The [facility] Physician GroupComment on above:Performed By: #### C3, CH50, C4 #### [facility] , #### CBC, CRP, CMP, ADDONUAPLUS, ESR #### [facility] [address] [place] [address] USAAST [Catalytic activity/Vol]30 U/GMezdpe03-25Yei [facility] Physician GroupComment on above:Performed By: #### C3, CH50, C4 #### [facility] , #### CBC, CRP, CMP, ADDONUAPLUS, ESR #### [facility] [address] [place] [address] USABilirubin [Mass/Vol]0.3 mg/dLNormal0.3-1.0The [facility] Physician GroupComment on above:Performed By: #### C3, CH50, C4 #### [facility] , #### CBC, CRP, CMP, ADDONUAPLUS, ESR #### [facility] [address] [place] [address] USACalcium [Mass/Vol]9.2 mg/dLNormal8.6-10.3The [facility] Physician GroupComment on above:Performed By: #### C3, CH50, C4 #### [facility] , #### CBC, CRP, CMP, ADDONUAPLUS, ESR #### [facility] [address] [place] [address] USAChloride [Moles/Vol]102 mmol/XHasdlc31-031Fqa [facility] Physician GroupComment on above:Performed By: #### C3, CH50, C4 #### [facility] , #### CBC, CRP, CMP, ADDONUAPLUS, ESR #### [place] [address] USACO2 [Moles/Vol]20.7 mmol/LLow21.0-31.0The [facility] Physician GroupComment on above:Performed By: #### C3, CH50, C4 #### [facility] , #### CBC, CRP, CMP, ADDONUAPLUS, ESR #### [place] [address] USACreatinine [Mass/Vol]0.89 mg/dLNormal0.70-1.30The [facility] Physician GroupComment on above:Performed By: #### C3, CH50, C4 #### [facility] , #### CBC, CRP, CMP, ADDONUAPLUS, ESR #### [place] [address] USAGFR/1.73 sq M.predicted MDRD (S/P/Bld) [Vol rate/Area] mL/min/{1.73_m2}NormalThe [facility] Physician GroupComment on above:Performed By: #### C3, CH50, C4 #### [facility] , #### CBC, CRP, CMP, ADDONUAPLUS, ESR #### [place] [address] USAGlobulin (S) [Mass/Vol]3.1 g/dLNormalThe [facility] Physician GroupComment on above:Performed By: #### C3, CH50, C4 #### [facility] , #### CBC, CRP, CMP, ADDONUAPLUS, ESR #### [place] [address] USAGlucose [Mass/Vol]85 mg/iVWtwvnm70-217Zjx [facility] Physician GroupComment on above:Result Comment: Random Glucose Reference Range is dependent on time and content of last meal. Glucose of more than 200 mg/dL in a nonstressed, ambulatory subject supports the diagnosis of Diabetes Mellitus. ADA recommended reference rangePerformed By: #### C3, CH50, C4 #### [facility] , #### CBC, CRP, CMP, ADDONUAPLUS, ESR #### [place] [address] USAPotassium [Moles/Vol]3.9 mmol/LNormal3.5-5.1The [facility] Physician GroupComment on above:Performed By: #### C3, CH50, C4 #### [facility] , #### CBC, CRP, CMP, ADDONUAPLUS, ESR #### [facility] [address] [place] [address] USAProtein [Mass/Vol]7.3 g/dLNormal6.4-8.9The [facility] Physician GroupComment on above:Performed By: #### C3, CH50, C4 #### [facility] , #### CBC, CRP, CMP, ADDONUAPLUS, ESR #### [facility] [address] [place] [address] USASodium [Moles/Vol]137 mmol/CBtboti866-023Dpb [facility] Physician GroupComment on above:Performed By: #### C3, CH50, C4 #### [facility] , #### CBC, CRP, CMP, ADDONUAPLUS, ESR #### [facility] [address] [place] [address] USAUrea nitrogen [Mass/Vol]11 mg/dLNormal7-25The [facility] Physician GroupComment on above:Performed By: #### C3, CH50, C4 #### [facility] , #### CBC, CRP, CMP, ADDONUAPLUS, ESR #### [facility] [address] [place] [address] USACreatinine [Mass/volume] in Serum or PlasmaOrdered By: Jenny Pop on 18-23-8538Tfaecxflir [Mass/Vol]Creatinine [Mass/volume] in Serum or Plasma0.70-1.30Firnadines Regional Medical CenterDipstick and Microscopicon 38-04-8408Euygepvixi (U)ClearNormalClearAdventhealth East Orlando Physician GroupComment on above:Order Comment: Name Collection Type:: Clean-Voided MidstreamPerformed By: #### C3, CH50, C4 #### [facility] , #### CBC, CRP, CMP, ADDONUAPLUS, ESR #### [place] [address] USABacteria,UrineNone SeenNormalNone SeenMemorial Hospital Of Rhode Island GroupComment on above:Order Comment: Name Collection Type:: Clean- Voided MidstreamPerformed By: #### C3, CH50, C4 #### [facility] , #### CBC, CRP, CMP, ADDONUAPLUS, ESR #### [place] [address] USABilirubin,UrineNegativeNormalNegativeAdventhealth East Orlando Physician GroupComment on above:Order Comment: Name Collection Type:: Clean- Voided MidstreamPerformed By: #### C3, CH50, C4 #### [facility] , #### CBC, CRP, CMP, ADDONUAPLUS, ESR #### [facility] [address] [place] [address] USAColor (U)Light-YellowNormalYellowAdventhealth East Orlando Physician GroupComment on above:Order Comment: Name Collection Type:: Clean-Voided MidstreamPerformed By: #### C3, CH50, C4 #### [facility] , #### CBC, CRP, CMP, ADDONUAPLUS, ESR #### [facility] [address] [place] [address] USAGlucose Ql (U)NormalNormalNormalThHaven Behavioral Hospital of Eastern Pennsylvania GroupComment on above:Order Comment: Name Collection Type:: Clean-Voided MidstreamPerformed By: #### C3, CH50, C4 #### [facility] , #### CBC, CRP, CMP, ADDONUAPLUS, ESR #### [place] [address] USAHyaline Casts,Ykhpr1-0Ybmicf9-4Wah [facility] Physician GroupComment on above:Order Comment: Name Collection Type:: Clean-Voided MidstreamPerformed By: #### C3, CH50, C4 #### [facility] , #### CBC, CRP, CMP, ADDONUAPLUS, ESR #### [place] [address] USAKetones Ql (U)NegativeNormalNegativeThe [facility] Physician GroupComment on above:Order Comment: Name Collection Type:: Clean- Voided MidstreamPerformed By: #### C3, CH50, C4 #### [facility] , #### CBC, CRP, CMP, ADDONUAPLUS, ESR #### [place] [address] USALeukocyte esterase Test strip Ql (U)NegativeNormalNegative The [facility] Physician GroupComment on above:Order Comment: Name Collection Type:: Clean-Voided MidstreamPerformed By: #### C3, CH50, C4 #### [facility] , #### CBC, CRP, CMP, ADDONUAPLUS, ESR #### [place] [address] USAMucus,UrineRareNormalThe [facility] Physician GroupComment on above:Order Comment: Name Collection Type:: Clean-Voided MidstreamResult Comment: PERFORMED BY: [place] [address] PATHOLOGIST FROG SHAKER JUAN RAMON CORLEY M.D.Performed By: #### C3, CH50, C4 #### [facility] , #### CBC, CRP, CMP, ADDONUAPLUS, ESR #### [place] [address] USANitrite,UrineNegativeNormalNegativeThe [facility] Physician GroupComment on above:Order Comment: Name Collection Type:: Clean-Voided MidstreamPerformed By: #### C3, CH50, C4 #### [facility] , #### CBC, CRP, CMP, ADDONUAPLUS, ESR #### [place] [address] USAOccult Blood,UrineNegativeNormalNegativeThe [facility] Physician GroupComment on above:Order Comment: Name Collection Type:: Clean- Voided MidstreamPerformed By: #### C3, CH50, C4 #### [facility] , #### CBC, CRP, CMP, ADDONUAPLUS, ESR #### [place] [address] USApH (U)5.5 [pH]Normal5.0-9.0The [facility] Comment on above:Order Comment: Name Collection Type:: Clean-Voided Midstream Performed By: #### C3, CH50, C4 #### [facility] , #### CBC, CRP, CMP, ADDONUAPLUS, ESR #### [place] [address] USAProtein,UrineNegativeNormalNegativeThe [facility] Physician GroupComment on above:Order Comment: Name Collection Type:: Clean-Voided MidstreamPerformed By: #### C3, CH50, C4 #### [facility] , #### CBC, CRP, CMP, ADDONUAPLUS, ESR #### [facility] [address] [place] [address] USARBC,Qwszi7-4Vpdgup6-8Krv [facility] Physician GroupComment on above:Order Comment: Name Collection Type:: Clean-Voided MidstreamPerformed By: #### C3, CH50, C4 #### [facility] , #### CBC, CRP, CMP, ADDONUAPLUS, ESR #### [place] [address] USASpecificy [place],Urine1.371Zvpwfc6.001-1.030The [facility] Physician GroupComment on above:Order Comment: Name Collection Type:: Clean- Voided MidstreamPerformed By: #### C3, CH50, C4 #### [facility] , #### CBC, CRP, CMP, ADDONUAPLUS, ESR #### [facility] [address] [place] [address] USASquamous Epithelial Cell,Wdzcn6-7Txrlrt5-2Pac [facility] Physician GroupComment on above:Order Comment: Name Collection Type:: Clean- Voided MidstreamPerformed By: #### C3, CH50, C4 #### [facility] , #### CBC, CRP, CMP, ADDONUAPLUS, ESR #### [facility] [address] [place] [address] USAUrobilinogen,UrineNormalNormalNormalThe [facility] Physician GroupComment on above:Order Comment: Name Collection Type:: Clean- Voided MidstreamPerformed By: #### C3, CH50, C4 #### [facility] , #### CBC, CRP, CMP, ADDONUAPLUS, ESR #### [facility] [address] [place] [address] USAWBC,Rtcdv6-4Rsdvaw1-9Ude [facility] Physician GroupComment on above:Order Comment: Name Collection Type:: Clean-Voided MidstreamPerformed By: #### C3, CH50, C4 #### [facility] , #### CBC, CRP, CMP, ADDONUAPLUS, ESR #### [facility] [address] [place] [address] USAEosinophils Auto (Bld) [#/Vol]Ordered By: Jenny Pop on 05-15-3151Rcgsurqunjl (Bld) [#/Vol]Automated eosinophil count0.0-0.45 [facility] HospitalEosinophils/100 WBC Auto (Bld)Ordered By: Jenny Pop on 43-15-4248Kslwjwcuwgm/100 WBC (Bld)Automated eosinophil %.[facility] HospitalEpithelial cells.squamous [#/area] in Urine sediment by Automated countOrdered By: Jenny Pop on 79-21-2990Pkkmjxjthn cells.squamous Auto (Urine sed) [#/Area]Epithelial cells.squamous [#/area] in Urine sediment by Automated count0-2FBarney Children's Medical CenterErythrocyte Sedimentation Rateon 48-98-4542YSC (Bld) [Velocity]76 mm/hHigh0The [facility] Physician GroupComment on above:Result Comment: PERFORMED BY: [place] [address] PATHOLOGIST FROG SHAKER JUAN RAMON CORLEY M.D.Performed By: #### C3, CH50, C4 #### [facility] , #### CBC, CRP, CMP, ADDONUAPLUS, ESR #### [address] StreetErythrocyte distribution width Auto (RBC) [Ratio]Ordered By: Jenny Pop on 71-57-1974Dasbjorcsbv distribution width (RBC) [Ratio] Erythrocyte distribution width [Ratio] by Automated count12.0-14.8[facility] God HospitalErythrocyte sedimentation rate by Photometric method Ordered By: Jenny Pop on 91-60-1654LCT Photometric method (Bld) [Velocity] Erythrocyte sedimentation rate by Photometric methodHigh0-19St. [facility] God HospitalErythrocytes [#/area] in Urine sediment by Automated countOrdered By: Jenny Pop on 04-64-6196NBU Auto (Urine sed) [#/Area]Erythrocytes [#/area] in Urine sediment by Automated count04FBarney Children's Medical CenterGlobulin Calc (S) [Mass/Vol]Ordered By: Jenny Pop on 09-19-2024 Globulin (S) [Mass/Vol]Serum globulin measurement by calculation (mass/volume) [facility] HospitalGlucose [Mass/volume] in Serum or PlasmaOrdered By: Jenny Pop on 28-57-3277Thkfaus [Mass/Vol]Glucose [Mass/volume] in Serum or Jpageu91-186UrwpmjcmgSt. John Of God HospitalComment on above:ADA recommended reference rangeRandom Glucose Reference Range is dependent on time and content of last meal. Glucose of more than 200 mg/dL in a nonstressed, ambulatory subject supports the diagnosisof Diabetes Mellitus.Glucose [Mass/volume] in Urine by Test stripOrdered By: Jenny Pop on 09-19-2024 Glucose Test strip (U) [Mass/Vol]Glucose [Mass/volume] in Urine by Test strip NormalSt. John Of God HospitalHematocrit Auto (Bld) [Volume fraction] Ordered By: Jenny Pop on 90-92-8528Jqhvvrpnfz (Bld) [Volume fraction] Hematocrit [Volume Fraction] of Blood by Automated count38.8-50.0[facility] HospitalHemoglobin Test strip Ql (U)Ordered By: Jenny Pop on 09-85-1188Qcgiuwnmpa Ql (U)Hemoglobin [Presence] in Urine by Test stripNegative St. [facility] God HospitalHemoglobin [Mass/volume] in BloodOrdered By: Jenny Pop on 18-19-5658Rgeqshfmyf (Bld) [Mass/Vol]Hemoglobin [Mass/volume] in Blood13.0-17.0[facility] HospitalHyaline casts [#/area] in Urine sediment by Automated countOrdered By: Jenny Pop on 36-27-7145Rwnrtxf casts Auto (Urine sed) [#/Area]Hyaline casts [#/area] in Urine sediment by Automated count0-8[facility] HospitalKetones Test strip Ql (U) Ordered By: Jenny Pop on 37-62-1412Kxylpmv Ql (U)Ketones [Presence] in Urine by Test stripNegMercy Health Willard HospitalLeukocyte esterase [Presence] in Urine by Test stripOrdered By: Jenny Pop on 09-19-2024 Leukocyte esterase Test strip Ql (U)Leukocyte esterase [Presence] in Urine by Test stripNegMercy Health Willard HospitalLeukocytes [#/area] in Urine sediment by Automated countOrdered By: Jenny Pop on 59-37-3104OEJ Auto (Urine sed) [#/Area]Leukocytes [#/area] in Urine sediment by Automated count0-4 [facility] HospitalLeukocytes [#/volume] corrected for nucleated erythrocytes in Blood by Automated counOrdered By: Jenny Pop on 09-19-2024 WBC corrected for nucl RBC Auto (Bld) [#/Vol]Leukocytes [#/volume] corrected for nucleated erythrocytes in Blood by Automated coun4.1-10.5FBarney Children's Medical CenterLymphocytes Auto (Bld) [#/Vol]Ordered By: Jenny Pop on 22-16-1366Xisxzawpxuh (Bld) [#/Vol]Lymphocytes [#/volume] in Blood by Automated count1.00-4.8[facility] HospitalLymphocytes/100 WBC Auto (Bld) Ordered By: Jenny Pop on 63-03-1074Mynyenppuvt/100 WBC (Bld)Lymphocytes/100 leukocytes in Blood by Automated count.[facility] God HospitalMCH Auto (RBC) [Entitic mass]Ordered By: Jenny Pop on 94-25-3354FMS (RBC) [Entitic mass]MCH [Entitic mass] by Automated count27.5-35.2FBarney Children's Medical CenterMCHC Auto (RBC) [Mass/Vol]Ordered By: Jenny Pop on 09-19-2024 MCHC (RBC) [Mass/Vol]MCHC [Mass/volume] by Automated count32.5-35.6FBarney Children's Medical CenterMCV Auto (RBC) [Entitic vol]Ordered By: Jenny Pop on 12-28-7804QHG (RBC) [Entitic vol]MCV [Entitic volume] by Automated count83.5-101 [facility] HospitalMonocytes Auto (Bld) [#/Vol]Ordered By: Jenny Pop on 99-13-4194Wfgzegupr (Bld) [#/Vol]Automated blood monocyte countHigh 0.0-0.8St. [facility] HospitalMonocytes/100 WBC Auto (Bld)Ordered By: Jenny Pop on 76-30-4075Zgzxygcot/100 WBC (Bld)Automated monocyte %. [facility] HospitalMucus [Presence] in Urine by AutomatedOrdered By: Jenny Pop on 23-95-0959Gtxut Auto Ql (U)Mucus [Presence] in Urine by AutomatedSt. John Of God HospitalNeutrophils Auto (Bld) [#/Vol]Ordered By: Jenny Pop on 00-36-9558Shwfdihhxlz (Bld) [#/Vol]Neutrophils [#/volume] in Blood by Automated count1.8-7.7FBarney Children's Medical Center Neutrophils/100 WBC Auto (Bld)Ordered By: Jenny Pop on 09-19-2024 Neutrophils/100 WBC (Bld)Automated neutrophil %.[facility] HospitalNitrite Test strip Ql (U)Ordered By: Jenny Pop on 23-60-7273Oorfkqy Ql (U)Nitrite [Presence] in Urine by Test stripNegativeSt. John Of God HospitalNo Panel InformationOrdered By: Jenny Pop on 09-19-2024 Estimated GFR (CKD-EPI)> 60.0 mL/MinSt. John Of God HospitalPharmacy Creatinine Clearance (ChemN/AFBarney Children's Medical CenterNucleated erythrocytes [Presence] in Blood by Automated countOrdered By: Jenny Pop on 52-62-5364Ehppuxxrt RBC Auto Ql (Bld)Nucleated erythrocytes [Presence] in Blood by Automated count0-0.5FBarney Children's Medical CenterPlatelet mean volume Auto (Bld) [Entitic vol]Ordered By: Jenny Pop on 25-44-4562Sorrxsxm mean volume (Bld) [Entitic vol]Platelet mean volume [Entitic volume] in Blood by Automated count6.6-10.1FBarney Children's Medical CenterPlatelets Auto (Bld) [#/Vol]Ordered By: Jenny Pop on 99-97-5199Tvrqrjoac (Bld) [#/Vol]Platelets [#/volume] in Blood by Automated aelqm990-647KzhjfgtqzSt. John Of God Hospital Potassium [Moles/volume] in Serum or PlasmaOrdered By: Jenny Pop on 37-75-9565Kwdilpeie [Moles/Vol]Potassium [Moles/volume] in Serum or Plasma 3.5-5.1FBarney Children's Medical CenterProtein Test strip (U) [Mass/Vol]Ordered By: Jenny Pop on 74-16-4532Pxnjmpw (U) [Mass/Vol]Protein [Mass/volume] in Urine by Test stripNegativeSt. John Of God HospitalProtein [Mass/volume] in Serum or PlasmaOrdered By: Jenny Pop on 83-99-2451Kmqylxe [Mass/Vol]Protein [Mass/volume] in Serum or Plasma6.4-8.9St. [facility] HospitalRBC Auto (Bld) [#/Vol]Ordered By: Jenny Pop on 30-39-7969VUQ (Bld) [#/Vol]Erythrocytes [#/volume] in Blood by Automated count3.90-5.60 [facility] Campuserum or plasma albumin/globulin mass ratio Ordered By: Jenny Pop on 80-09-3335Xtlazaf/Globulin [Mass ratio]Serum or plasma albumin/globulin mass ratioTrinity Health System East Campuserum or plasma anion gap determinationOrdered By: Jenny Pop on 92-82-5823Xhpiw gap [Moles/Vol]Serum or plasma anion gap determinationHigh6.0-15.0[facility] Campuserum or plasma complement C3 measurement (mass/volume)Ordered By: Jenny Pop on 46-41-9622Iofflybkfm C3 [Mass/Vol]Serum or plasma complement C3 measurement (mass/volume)Zxkb39-100DluquzwghSt. John Of God HospitalComment on above:Performed at: - [facility] [id number] Director: Javier Dominguez PhD, Phone: [phone] or plasma complement C4 measurement (mass/volume)Ordered By: Jenny Pop on 44-68-6287Pjkmpisyap C4 [Mass/Vol]Serum or plasma complement C4 measurement (mass/volume)Kkgh02-42MwhzqqkdoTrinity Health System East Campusodium [Moles/volume] in Serum or PlasmaOrdered By: Jenny Pop on 24-90-4604Epofac [Moles/Vol]Sodium [Moles/volume] in Serum or Ulebfc883-002VjbbpghgcSt. John Of God Hospital Specific gravity Test strip (U) [Rel density]Ordered By: Jenny Pop on 79-71-4530Pnumawtd gravity (U) [Rel density]Specific gravity of Urine by Test strip1.001-1.030St. [facility] HospitalTotal hemolytic complement CH50 assayOrdered By: Jenny Pop on 75-13-8884Tpuhb Complement (CH50)>60 U/mL>41 [facility] HospitalComment on above:Age Male Female 1 - 30 days Not Estab. Not Estab. 31 days - 6 months >32 >20 7 months - 17 years >39 >39 >17 years >41 >41 NOTE: The adult ( >17 years ) reference intervalrange is used to flag abnormals on this report. If the patient is 17 years old or younger, use the table above to determine out of range values.Performed at: [facility] [id number] Director: Javier Dominguez PhD, Phone: [phone] nitrogen [Mass/volume] in Serum or PlasmaOrdered By: Jenny Pop on 07-33-1114Ukqr nitrogen [Mass/Vol]Urea nitrogen [Mass/volume] in Serum or Plasma02-16St[facility] HospitalUrobilinogen Test strip (U) [Mass/Vol]Ordered By: Jenny Pop on 26-45-2324Ofcldjcrchgj (U) [Mass/Vol] Urobilinogen [Mass/volume] in Urine by Test stripNormDetwiler Memorial HospitalWBC Auto (Bld) [#/Vol]Ordered By: Jenny Pop on 62-87-7601COL (Bld) [#/Vol]Leukocytes [#/volume] in Blood by Automated count4.1-10.5FBarney Children's Medical CenterpH Test strip (U)Ordered By: Jenny Pop on 09-19-2024 pH (U)pH of Urine by Test strip5.0-9.0[facility] Ambulatory Visit Summaryon 10-52-9077Twdsnvgfuo Visit SummaryAmbulatory Visit Summary RITCHIE THORNE :1975 Visit Date:09/08/2024 Ambulatory Visit Instructions Your Diagnosis Hyperplastic polyp of sigmoid colon Your Care Team Attending Physician - JOAQUÍN CHAVEZ, Silvestre Page Primary Care Physician - EMMANUEL MACHADO, AGUSTINA Holman This Is Your Medications List NIFEdipine (NIFEdipine 60 mg ER Tab) aspirin (aspirin 81 mg Oral EC Tab) atenolol (atenolol 100 mg Tab) atorvastatin (atorvastatin 40 mg Tab) clopidogrel (Plavix 75 mg Tab) pantoprazole (Pantoprazole [address] Tab) sertraline (Zoloft 50 mg Tab) Procedures Performed Colonoscopy (08/23/2024), Cholecystectomy. Medications What How Much When Instructions Unchanged aspirin (aspirin 81 mg Oral EC Tab) 1 Tablets By Mouth Every day Unchanged atenolol (atenolol 100 mg Tab) 1 Tablets By Mouth Every day Unchanged atorvastatin (atorvastatin 40 mg Tab) 1 Tablets By Mouth Every day Unchanged clopidogrel (Plavix 75 mg Tab) 1 Tablets By Mouth Every day Unchanged NIFEdipine (NIFEdipine 60 mg ER Tab) 1 Tablets By Mouth Every day Unchanged pantoprazole (Pantoprazole [address] Tab) 1 Tablets By Mouth Every day Unchanged sertraline (Zoloft 50 mg Tab) 3 Tablets By Mouth Every day Allergies No Known Allergies No Known Medication Allergies Problems Ongoing - Any problem that you are currently receiving treatment for. Alcohol abuse BMI 29.0-29.9,adult CREST syndrome Emphysema lung Hyperplastic polyp of sigmoid colon Hypertriglyceridemia Overweight Positive occult stool blood test Pulmonary hypertension Raynauds syndrome Patient Survey You may receive a survey via text or e-mail asking about your office visit. Please share your experience with us by completing your survey. We appreciate your feedback and thank you for choosing us for your care. [facility] HospitalGeneral Surgery Office/Clinic Noteon 17-22-1529Gcuxmuc Surgery Office/Clinic NoteGeneral Surgery Office/Clinic Note Chief Complaint post operative follow up HPI Staff 16 day post operative follow up post colonoscopy with sigmoid polypectomy. History of Present Illness f/u colonoscopy done for positive fecal occult blood test; had small hyperplastic sigmoid polyp removed; denies abd pain or blood in stools. Review of Systems PHQ Score Initial Depression Screen Score: 0 SCORE ROS - Provider Constitutional: no fever, no sweats, no weight loss. Eyes: no glasses, no blurred vision, no visual loss. ENMT: no dentures, no hoarseness, no swallowing difficulties, no hearing loss, no ear infection(s),no nose bleeds. Cardiovascular: normal blood pressure, no [...] been reviewed and are negative or noncontributory. Assessment/Plan 1. Hyperplastic polyp of sigmoid colon (K63.5: Polyp of colon) recommend screening colonoscopy in 10 years, call sooner if problems/questions. Follow-up No qualifying data available Problem List/Past Medical History Ongoing Alcohol abuse BMI 29.0-29.9,adult CREST syndrome Emphysema lung Hyperplastic polyp of sigmoid colon Hypertriglyceridemia Overweight Positive occult stool blood test Pulmonary hypertension Raynauds syndrome Historical No qualifying data Procedure/Surgical History Colonoscopy (08/23/2024), Cholecystectomy. Medications aspirin 81 mg Oral EC [...] per day. Started age 21.0 Years. Yes, 09/08/2024 Family History Cancer: Mother. Heart disease: Father. Stroke: Father. Immunizations Vaccine Date Status Comments SARS-CoV-2 (COVID-19) mRNA BNT-162b2 vax 05/01/2021 Recorded 2024-07-03: TPV40 SARS-CoV-2 (COVID-19) mRNA BNT-162b2 vax 04/10/2021 Recorded 2024-07-03: TPV40 [facility] HospitalComment on above:Result Comment: Electronically Signed By: JOAQUÍN CHAVEZ, Silvestre Gunderson\Date and Time Signed: 09/08/24 08:17 EST Reminderson 73-77-1676NbhlkmoouCoohpjlqt From: Ebony Owens LPN To: N - Clinical; Sent: 09/08/2024 08:09:58 EST Show up: 07/23/2034 07:00:00 EST Subject: colonoscopy recall Due Date/Time: 08/23/2034 07:00:00 EST Reminder/Recall Patient due for screening colonoscopy 08/23/2034.[facility] HospitalLon 08-23-2024L Specimen: [id number] Received: 08/23/24 Status: GUERO Jessica Num: [id number] Spec Type: Surgical Subm Dr: Silvestre Yanes MD FACS Tissues: A Colon Biopsy (SIGMOID POLYP) Procedures: HE/2, Gross/Micro L4 Age/ Patient Sex Location Account Attending Physician Ritchie Thorne 49/M [facility] [id number] Silvestre Yanes MD FACS SPEC NUM: [id number] RECD: 08/23/24 STATUS: GUERO JESSICA NUM: [id number] KARIN: 08/23/[address] [facility] DR: Silvestre Yanes MD FACS ENTERED: 08/23/[address]: Iveth Beckett SPEC TYPE: Surgical DEPT: MELVIN NEGRO ENTERED BY: [id number] RECV BY: [id number] ORDERED: HE/2, Gross/Micro L4 ORDERED: HE/2, Gross/Micro L4 Pathological Diagnosis Colon, sigmoid, polypectomy: - Hyperplastic polyp. Clinical Information Sigmoid polyp Gross Description Received in formalin labeled with the patients name, date of , and sigmoid polyp is a flanagan-aldrich, focally erythematous, friable, 0.5 cm in greatest dimension polypoid fragment. The specimen is entirely submitted in a single cassette. (1, saul, [id number] A) JG Microscopic Description Microscopic examination is performed. CPT Codes 87552 Specimen: [id number] Received: 08/23/24-1245 Status: GUERO Didi Num: [id number] Spec Type: Surgical Subm Dr: Silvestre Yanes MD FACS Tissues: A Colon Biopsy (SIGMOID POLYP) Procedures: Tyler DONIS/aFvian L4 Patient: Ritchie Thorne [id number] (Continued) Signed (signature on file) Solomon Bates MD 08/24/24 1112Normal [facility] Physician Jcrne31ny [phone] and left vm to schedule venous reflux (75) and follow up with HP. Ideally would like same day.NormalUnAdena Fayette Medical CenterFollow-Upon [id number] Ritchie Thorne 1975 M Date Provider Department Center 08/08/2024 150-MALLORIE LUGO HVCVASENDO [facility] No family history on file Level of Service:62398 [place] OFFICE/OUTPATIENT ESTABLISHED MOD MDM 30 MIN Reason for Visit and Comments: Follow-up [991374] - Raynaud's w gangrene, colonoscopy scheduled 08/22 ask if can be off plavix Inpatient 06/30/23NormalUniWilson Memorial HospitalTelephoneon 08-08-2024 [id number] Ritchie Thorne 1975 M Date Provider Department Center 08/08/2024 3200-EMELI CHIDI GLV [facility] No family history on fileNormalUniWilson Memorial HospitalAmbulatory Visit Summaryon 06-07-2213Blhtycwafz Visit SummaryAmbulatory Visit Summary RITCHIE THORNE :1975 Visit Date:08/01/2024 [...] Tablets By Mouth Every day Contact prescribing physicianif questions or concerns Unchanged atorvastatin (atorvastatin 40 mg Tab) 1 Tablets By Mouth Every day Contact prescribing physician if questions or concerns Unchanged clopidogrel (Plavix 75 mg Tab) 1 Tablets By Mouth Every day Contact prescribing physicianif questions or concerns Unchanged NIFEdipine (NIFEdipine 60 mg ER Tab) 1 Tablets By Mouth Every day Contact prescribing physician if questions or concerns Unchanged pantoprazole (Pantoprazole [address] Tab) 1 Tablets By Mouth Every day Contact prescribingphysician if questions or concerns Unchanged sertraline (Zoloft [...] you for choosing us for your care. [facility] HospitalActivated partial thromboplastin time (aPTT) in platelet poor plasma by coagulation aOrdered By: Williams Krause on 48-37-4256oQKG Coag (PPP) [Time]28.0 s25.1-36.5FBarney Children's Medical CenterComment on above:A hematocrit value greater than 55% may lead to inaccurate results in coagulation testing. Patientshaving hematocrit values >55% require a special collection tube for coagulation studies. Please contact the laboratory at [phone] for redraw instructions.Basophils Auto (Bld) [#/Vol] Ordered By: Williams Krause on 70-50-8772Swittvfsp (Bld) [#/Vol]0.1 10*3/uL 0.0-0.2FBarney Children's Medical CenterBasophils/100 WBC Auto (Bld)Ordered By: Williams Krause on 57-52-6380Nxffwqrgt/100 WBC (Bld)1.3 %.[facility] HospitalC reactive protein [Mass/volume] in Serum or PlasmaOrdered By: Williams Krause on 13-52-8853YLU [Mass/Vol]< 0.5 mg/dL0.0-0.5FBarney Children's Medical CenterCalcium [Mass/volume] in Serum or PlasmaOrdered By: Williams Krause on 70-75-6500Gylwqjw [Mass/Vol]8.5 mg/dL8.6-10.3FBarney Children's Medical CenterCarbon dioxide, total [Moles/volume] in Serum or PlasmaOrdered By: Williams Krause on 33-00-6003EB7 [Moles/Vol]19.2 mmol/L21.0-31.0[facility] HospitalChloride [Moles/volume] in Serum or PlasmaOrdered By: Williams Krause on 28-64-2094Nkeafvqy [Moles/Vol]106 mmol/L92-585SzwyccsgxSt. John Of God HospitalCreatinine [Mass/volume] in Serum or PlasmaOrdered By: Williams Krause on 31-88-8317Jcwtrjazne [Mass/Vol]0.94 mg/dL0.70-1.30St. [facility] God HospitalEosinophils Auto (Bld) [#/Vol]Ordered By: Williams Krause on 06-49-4177Rgwzhdersfz (Bld) [#/Vol]0.1 10*3/uL0.0-0.45St. [facility] HospitalEosinophils/100 WBC Auto (Bld)Ordered By: Williams Krause on 83-22-5629Hwdqkytcpvv/100 WBC (Bld)1.0 %.[facility] HospitalErythrocyte distribution width Auto (RBC) [Ratio]Ordered By: Williams Krause on 88-82-4341Amslagagduk distribution width (RBC) [Ratio]13.2 % 12.0-14.8St. [facility] God HospitalErythrocyte sedimentation rate by Photometric methodOrdered By: Williams Krause on 35-71-6270TQB Photometric method (Bld) [Velocity]18 mm/hr0-14St. [facility] HospitalGlucose [Mass/volume] in Serum or PlasmaOrdered By: Williams Krause on 06-18-2023 Glucose [Mass/Vol]119 mg/aS05-045IumrrlxjtSt. John Of God HospitalComment on above:ADA recommended reference rangeRandom Glucose Reference Range is dependent on time and content of last meal. Glucose of more than 200 mg/dL in a nonstressed, ambulatory subject supports the diagnosisof Diabetes Mellitus. Hematocrit Auto (Bld) [Volume fraction]Ordered By: Williams Krause on 57-53-1829Hiextzrvqh (Bld) [Volume fraction]41.1 %38.8-50.0St. [facility] HospitalHemoglobin [Mass/volume] in BloodOrdered By: Williams Krause on 42-12-3853Ruviyrghtm (Bld) [Mass/Vol]14.3 g/dL13.0-17.0St. [facility] HospitalINR in Platelet poor plasma by Coagulation assayOrdered By: Williams Krause on 52-19-5312LCY Coag (PPP) [Relative time]1.0 {INR}St. [facility] Of [facility] HospitalComment on above:INR Therapeutic Range A) Pre- and Peroperative OAT started two weeks before surgery. NOT HIP SURGERY: 1.5 - 2.5 HIP SURGERY: 2 - 3B) Primary and secondary prevention of venous THROMBOSIS: 2 - 3C) Active venous thrombosis, pulmonary embolismand prevention of recurrent venous thrombosis: 2 - 3D) Prevention of arterial thromboembolismincluding patients with mechanical heart valves: 3 - 4.5Leukocytes [#/volume] corrected for nucleated erythrocytes in Blood by Automated counOrdered By: Williams Krause on 30-42-9190YBQ corrected for nucl RBC Auto (Bld) [#/Vol]6.2 10*3/uL 4.1-10.5FBarney Children's Medical CenterLymphocytes Auto (Bld) [#/Vol]Ordered By: Williams Krause on 47-39-8142Ozelurcfkpe (Bld) [#/Vol]2.1 10*3/uL1.00-4.8 [facility] HospitalLymphocytes/100 WBC Auto (Bld)Ordered By: Williams Krause on 17-11-7658Yawtpcekmek/100 WBC (Bld)33.9 %.[facility] Auto (RBC) [Entitic mass]Ordered By: Williams Krause on 33-54-8547TJY (RBC) [Entitic mass]33.7 pg27.5-35.2FOur Lady of Mercy Hospital - AndersonHC Auto (RBC) [Mass/Vol]Ordered By: Williams Krause on 65-60-9496JCRE (RBC) [Mass/Vol]34.9 g/dL32.5-35.6FBarney Children's Medical CenterMCV Auto (RBC) [Entitic vol]Ordered By: Williams Krause on 15-65-9605UFK (RBC) [Entitic vol]96.6 fL83.5-101St[facility] HospitalMonocyte distribution width [Entitic volume] in Blood by AutomatedOrdered By: Williams Krause on 06-18-2023 Monocyte distribution width Auto (Bld) [Entitic vol]19.18 %0.00-20.00St[facility] HospitalMonocytes Auto (Bld) [#/Vol]Ordered By: Williams Krause on 31-08-8949Meptxjsxk (Bld) [#/Vol]0.7 10*3/uL0.0-0.8St. [facility] HospitalMonocytes/100 WBC Auto (Bld)Ordered By: Williams Krause on 06-18-2023 Monocytes/100 WBC (Bld)10.5 %.[facility] God HospitalNeutrophils Auto (Bld) [#/Vol]Ordered By: Williams Krause on 29-06-9934Iduouncdypp (Bld) [#/Vol] 3.3 10*3/uL1.8-7.7FBarney Children's Medical CenterNeutrophils/100 WBC Auto (Bld)Ordered By: Williams Krause on 96-68-0076Mimbguweeia/100 WBC (Bld)53.3 %. [facility] [facility] HospitalNo Panel InformationOrdered By: Williams Krause on 46-05-1755Jskncedyx GFR (CKD-EPI)> 60.0 mL/MinSt. John Of God HospitalPharmacy Creatinine Clearance (Sidi386.34St. [facility] God HospitalNucleated erythrocytes [Presence] in Blood by Automated count Ordered By: Williams Krause on 45-77-9516Saduqqrkc RBC Auto Ql (Bld)0.3 /100{WBC}0-0.5FBarney Children's Medical CenterPlatelet mean volume Auto (Bld) [Entitic vol]Ordered By: Williams Krause on 61-10-7331Uzitgtad mean volume (Bld) [Entitic vol]7.7 fL6.6-10.1FBarney Children's Medical CenterPlatelets Auto (Bld) [#/Vol]Ordered By: Williams Krause on 37-11-6206Kibzhivmq (Bld) [#/Vol] 297 10*3/mE255-929JadqzrqanSt. John Of God HospitalPotassium [Moles/volume] in Serum or PlasmaOrdered By: Williams Krause on 94-86-3724Asrdjlogb [Moles/Vol] 4.7 mmol/L3.5-5.1FBarney Children's Medical CenterProthrombin time (PT)Ordered By: Williams Krause on 73-77-6974IS Coag (PPP) [Time]12.2 s9.0-12.9St. [facility] HospitalComment on above:A hematocrit value greater than 55% may lead to inaccurate results in coagulation testing. Patientshaving hematocrit values >55% require a special collection tube for coagulation studies. Please c ontact the laboratory at [phone] for redraw instructions.RBC Auto (Bld) [#/Vol]Ordered By: Williams Krause on 46-32-8235BWU (Bld) [#/Vol]4.26 10*6/uL 3.90-5.60[facility] Health System East Campuserum or plasma anion gap determinationOrdered By: Williams Krause on 87-58-7628Aykbw gap [Moles/Vol]TNP [facility] HospitalComment on above:Test not performedSodium [Moles/volume] in Serum or PlasmaOrdered By: Williams Krause on 06-18-2023 Sodium [Moles/Vol]134 mmol/Y901-188OaofxmnqgSt. John Of God HospitalUrea nitrogen [Mass/volume] in Serum or PlasmaOrdered By: Williams Krause on 06-91-8036Nuqd nitrogen [Mass/Vol]22 mg/dL7-25[facility] WBC Auto (Bld) [#/Vol]Ordered By: Williams Krause on 29-28-5492RYJ (Bld) [#/Vol]6.2 10*3/uL4.1-10.5FBarney Children's Medical CenterActivated partial thromboplastin time (aPTT) in platelet poor plasma by coagulation aOrdered By: Williams Coronado on 86-58-1519oJCE Coag (PPP) [Time]27.6 s25.1-36.5FBarney Children's Medical CenterAlanine aminotransferase [Enzymatic activity/volume] in Serum or PlasmaOrdered By: Williams Coronado on 99-55-5325MFH [Catalytic activity/Vol]34 U/L7-52St. [facility] HospitalAlbumin [Mass/volume] in Serum or Plasma by Bromocresol green (BCG) dye binding methoOrdered By: Williams Coronado on 91-53-0491Llbwdxs BCG dye [Mass/Vol]4.2 g/dL3.5-5.7FBarney Children's Medical CenterAlkaline phosphatase [Enzymatic activity/volume] in Serum or PlasmaOrdered By: Williams Coronado on 68-59-4956SMI [Catalytic activity/Vol]80 U/L 34-104St. [facility] God HospitalAspartate aminotransferase [Enzymatic activity/volume] in Serum or PlasmaOrdered By: Williams Coronado on 18-84-9869DQV [Catalytic activity/Vol]27 U/G92-85LhqhigoexSt. John Of God HospitalAutomated erythrocytes count in urine sediment (number/area)Ordered By: Williams Coronado on 21-56-7896GLW Auto (Urine sed) [#/Area]None seen [HPF]0-4FBarney Children's Medical CenterAutomated leukocytes count in urine sediment (number/area)Ordered By: Williams Coronado on 33-37-9616YMD Auto (Urine sed) [#/Area]None seen [HPF]0-4 [facility] HospitalBasophils Auto (Bld) [#/Vol]Ordered By: Williams Coronado on 39-05-7690Twwaylwmq (Bld) [#/Vol]0.1 10*3/uL0.0-0.2FBarney Children's Medical CenterBasophils/100 WBC Auto (Bld)Ordered By: Williams Coronado on 92-45-6797Uqauychxg/100 WBC (Bld)0.6 %.[facility] Bilirubin Test strip Ql (U)Ordered By: Williams Coronado on 80-48-0811Uuwqxspbh Ql (U)NegativeNegativeSt. John Of God HospitalBilirubin.total [Mass/volume] in Serum or PlasmaOrdered By: Williams Coronado on 11-24-2022 Bilirubin [Mass/Vol]0.4 mg/dL0.3-1.0St[facility] HospitalC reactive protein [Mass/volume] in Serum or PlasmaOrdered By: Williams Coronado on 11-24-2022 CRP [Mass/Vol]< 0.5 mg/dL0.0-0.5FBarney Children's Medical CenterCalcium [Mass/volume] in Serum or PlasmaOrdered By: Williams Coronado on 27-46-5560Yabtwfr [Mass/Vol]9.0 mg/dL8.6-10.3FBarney Children's Medical CenterCarbon dioxide, total [Moles/volume] in Serum or PlasmaOrdered By: Williams Coronado on 11-24-2022 CO2 [Moles/Vol]25.7 mmol/L21.0-31.0[facility] HospitalChloride [Moles/volume] in Serum or PlasmaOrdered By: Williams Coronado on 11-24-2022 Chloride [Moles/Vol]103 mmol/D92-104GlblvosrmSt. John Of God HospitalColor Auto (U)Ordered By: Williams Coronado on 09-35-9135Ypazc (U)YellowYellowSt. John Of God HospitalCreatine kinase [Enzymatic activity/volume] in Serum or PlasmaOrdered By: Williams Coronado on 33-03-4969NY [Catalytic activity/Vol]92 U/L 30-223St. [facility] HospitalCreatinine [Mass/volume] in Serum or PlasmaOrdered By: Williams Coronado on 64-27-5197Ludsklrevw [Mass/Vol]0.96 mg/dL 0.70-1.30St. [facility] HospitalEosinophils Auto (Bld) [#/Vol]Ordered By: Williams Coronado on 13-60-2483Ersrtunnzum (Bld) [#/Vol]0.1 10*3/uL0.0-0.45 [facility] HospitalEosinophils/100 WBC Auto (Bld)Ordered By: Williams Coronado on 47-45-2987Mljodvrpjul/100 WBC (Bld)1.2 %.[facility] HospitalErythrocyte distribution width Auto (RBC) [Ratio]Ordered By: Williams Coronado on 06-02-9454Kdamrcuqgbq distribution width (RBC) [Ratio]13.9 % 12.0-14.8St. [facility] God HospitalErythrocyte sedimentation rate by Photometric methodOrdered By: Williams Coronado on 23-20-2381AUP Photometric method (Bld) [Velocity]17 mm/hr0-14St. [facility] God HospitalGlobulin Calc (S) [Mass/Vol]Ordered By: Williams Coronado on 96-73-6412Jvnpbpwm (S) [Mass/Vol]3.0 g/dLSt. John Of God HospitalGlucose [Mass/volume] in Serum or Plasma Ordered By: Williams Cornoado on 69-30-7079Xxnzymn [Mass/Vol]80 mg/oU80-049 [facility] HospitalComment on above:ADA recommended reference rangeRandom Glucose Reference Range is dependent on time and content of last meal. Glucose of more than 200 mg/dL in a nonstressed, ambulatory subject supports the diagnosisof Diabetes Mellitus.Hematocrit Auto (Bld) [Volume fraction]Ordered By: Williams Coronado on 03-33-8230Yhujirpvqr (Bld) [Volume fraction]44.2 %38.8-50.0[facility] HospitalHemoglobin [Mass/volume] in BloodOrdered By: Williams Coronado on 46-04-7194Vgrmqyudpc (Bld) [Mass/Vol]14.9 g/dL13.0-17.0[facility] HospitalKetones Auto test strip (U) [Mass/Vol]Ordered By: Williams Coronado on 82-36-3888Dlwugky (U) [Mass/Vol]NegativeNegativeSt. John Of God HospitalLaboratory - CoagulationOrdered By: Williams Coronado on 62-34-7325SK Coag (PPP) [Time]10.5 s 9.0-12.9St[facility] HospitalLaboratory - UrinalysisOrdered By: Williams Coronado on 87-43-3311Wgkxvqb casts LM Ql (Urine sed)None seen [LPF]0-8 [facility] HospitalLeukocytes [#/volume] corrected for nucleated erythrocytes in Blood by Automated counOrdered By: Williams Coronado on 11-24-2022 WBC corrected for nucl RBC Auto (Bld) [#/Vol]8.5 10*3/uL4.1-10.5FBarney Children's Medical CenterLymphocytes Auto (Bld) [#/Vol]Ordered By: Williams Coronado on 47-45-8040Phvftelbxac (Bld) [#/Vol]2.8 10*3/uL1.00-4.8St. [facility] HospitalLymphocytes/100 WBC Auto (Bld)Ordered By: Williams Coronado on 69-92-0598Clvxpblsfyk/100 WBC (Bld)32.7 %.[facility] CenterH Auto (RBC) [Entitic mass]Ordered By: Williams Coronado on 71-85-2030XVZ (RBC) [Entitic mass]34.0 pg27.5-35.2FBarney Children's Medical CenterMCHC Auto (RBC) [Mass/Vol]Ordered By: Williams Coronaod on 13-84-9460GSIZ (RBC) [Mass/Vol]33.6 g/dL 32.5-35.6FBarney Children's Medical CenterMCV Auto (RBC) [Entitic vol]Ordered By: Williams Coronado on 19-96-6198IKX (RBC) [Entitic vol]101.0 fL83.5-101St. [facility] HospitalMonocytes Auto (Bld) [#/Vol]Ordered By: Williams Coronado on 13-08-7694Aheeonhbf (Bld) [#/Vol]0.9 10*3/uL0.0-0.8St. [facility] HospitalMonocytes/100 WBC Auto (Bld)Ordered By: Williams Coronado on 11-24-2022 Monocytes/100 WBC (Bld)10.1 %.[facility] HospitalNeutrophils Auto (Bld) [#/Vol]Ordered By: Williams Coronado on 53-33-7321Mpklshaampz (Bld) [#/Vol] 4.7 10*3/uL1.8-7.7FBarney Children's Medical CenterNeutrophils/100 WBC Auto (Bld)Ordered By: Williams Coronado on 02-49-5610Wqhdohihsjf/100 WBC (Bld)55.[address] [facility] HospitalNitrite Test strip Ql (U)Ordered By: Williams Coronado on 44-06-4128Larlqzk Ql (U)NegativeNegativeSt. John Of God HospitalNo Panel InformationOrdered By: Williams Coronado on 52-07-8926Myaesnkij GFR (CKD-EPI)> 60.0 mL/MinSt. John Of God HospitalPharmacy Creatinine Clearance (ChemN/AFBarney Children's Medical CenterNucleated erythrocytes [Presence] in Blood by Automated countOrdered By: Williams Coronado on 11-24-2022 Nucleated RBC Auto Ql (Bld)0.1 /100{WBC}0-0.5FBarney Children's Medical Center Platelet mean volume Auto (Bld) [Entitic vol]Ordered By: Williams Coronado on 74-87-9436Knwehyqx mean volume (Bld) [Entitic vol]9.0 fL6.6-10.1FBarney Children's Medical CenterPlatelet poor plasma international normalized ratio (INR) by coagulation assay (relatOrdered By: Williams Coronado on 30-28-3355SKR Coag (PPP) [Relative time]0.9 {INR}[facility] HospitalComment on above: INR Therapeutic Range A) Pre- and Peroperative OAT started two weeks before surgery. NOT HIP SURGERY: 1.5 - 2.5 HIP SURGERY: 2 - 3B) Primary and secondary prevention of venous THROMBOSIS: 2 - 3C) Active venous thrombosis, pulmonary embolismand prevention of recurrent venous thrombosis: 2 - 3D) Prevention of arterial thromboembolismincluding patients with mechanical heart valves: 3 - 4.5 Platelets Auto (Bld) [#/Vol]Ordered By: Williams Coronado on 83-48-8146Cwgvpmqgw (Bld) [#/Vol]217 10*3/mX540-057VqhfvqlmySt. John Of God HospitalPotassium [Moles/volume] in Serum or PlasmaOrdered By: Williams Coronado on 11-24-2022 Potassium [Moles/Vol]4.3 mmol/L3.5-5.1FBarney Children's Medical CenterProtein Auto test strip (U) [Mass/Vol]Ordered By: Williams Coronado on 85-47-5782Qsnsfsp (U) [Mass/Vol]NegativeNegativeSt. John Of God HospitalProtein [Mass/volume] in Serum or PlasmaOrdered By: Williams Coronado on 40-22-1988Sdvekyq [Mass/Vol]7.2 g/dL6.4-8.9[facility] HospitalRBC Auto (Bld) [#/Vol] Ordered By: Williams Coronado on 74-70-4541HRQ (Bld) [#/Vol]4.38 10*6/uL3.90-5.60 [facility] Campuserum or plasma albumin/globulin mass ratio Ordered By: Williams Coronado on 94-02-6657Zgqirkt/Globulin [Mass ratio]1.4 {ratio} [facility] Campuserum or plasma anion gap determinationOrdered By: Williams Coronado on 40-57-3653Hnear gap [Moles/Vol]13.6 mmol/L6.0-15.0 [facility] Campusodium [Moles/volume] in Serum or PlasmaOrdered By: Williams Coronado on 13-62-2432Cehjhf [Moles/Vol]138 mmol/D251-991AyelgexfxTrinity Health System East Campuspecific gravity Auto test strip (U) [Rel density]Ordered By: Williams Coronado on 86-79-4752Bnnzryen gravity (U) [Rel density]1.015 1.001-1.030[facility] Campusquamous epithelial cells detection in urine sediment by light microscopyOrdered By: Williams Coronado on 11-24-2022 Epithelial cells.squamous LM Ql (Urine sed)None seen [HPF]0-2FBarney Children's Medical CenterThyrotropin [Units/volume] in Serum or PlasmaOrdered By: Williams Coronado on 43-90-6106XQX Qn2.20 m[IU]/L0.45-5.33[facility] Thyroxine (T4) free [Mass/volume] in Serum or PlasmaOrdered By: Williams Coronado on 77-63-5043Eyqd T4 [Mass/Vol]0.81 ng/dL0.61-1.12[facility] HospitalUrea nitrogen [Mass/volume] in Serum or PlasmaOrdered By: Williams Coronado on 22-25-2841Ibki nitrogen [Mass/Vol]13 mg/dL7-25[facility] HospitalUrine bacteria detection by automated methodOrdered By: Williams Coronado on 85-73-5092Dvkjdpxf Auto Ql (U)None seenNone SeenSt. John Of God HospitalUrine clarity by refractometry automatedOrdered By: Williams Coronado on 35-18-8604Xhprtnt Refractometry automated (U)ClearCleMercy Health St. Elizabeth Boardman HospitalUrine glucose measurement by automated test strip (mass/volume) Ordered By: Williams Coronado on 42-38-6012Gtocfuk Auto test strip (U) [Mass/Vol] Normal mg/dLNoSelect Medical OhioHealth Rehabilitation HospitalUrine hemoglobin detection by automated test stripOrdered By: Williams Coronado on 35-19-6310Ajavmhbzuo Auto test strip Ql (U)NegativeNegMercy Health Willard HospitalUrine leukocyte esterase detection by automated test stripOrdered By: Williams Coronado on 96-88-5251Bljxcoami esterase Auto test strip Ql (U)NegativeNegMercy Health Willard HospitalUrobilinogen Auto test strip (U) [Mass/Vol]Ordered By: Williams Coronado on 68-52-9889Lufsirvjkyjh (U) [Mass/Vol]Normal mg/dLMercy Health Anderson HospitalWBC Auto (Bld) [#/Vol]Ordered By: Williams Coronado on 99-07-8102ASH (Bld) [#/Vol]8.5 10*3/uL4.1-10.5FBarney Children's Medical CenterpH Auto test strip (U)Ordered By: Williams Coronado on 62-48-9072lV (U)5.5 [pH]5.0-9.0[facility] HospitalANA by IFAon 10-18-2022 Antinuclear Antibodies, IFAPositiveWilson Memorial HospitalComment on above:Result Comment: Negative <1:80 Borderline 1:80 Positive >1:80Performed By: #### CVDTBH #### [facility] [address] [place] [address] Dr. Kyra Elias [facility] HospitalComment on above: Performed By: #### CVDTBH #### [facility] [address] [address] [address] Kyra Chandlerromere Pattern1:320Critically highOhiohealth Nelsonville Health Center Comment on above:Result Comment: ICAP nomenclature: AC-3Performed By: #### CVDTBH #### [facility] [address] [address] [address] Kyra PatelHomogeneous Pattern1:160Critically highOhiohealth Nelsonville Health Center Comment on above:Result Comment: ICAP nomenclature: AC-1Performed By: #### CVDTBH #### [facility] [address] [address] [address] Kyra PatelMidbody PatternNormAultman HospitalComment on above: Performed By: #### CVDTBH #### [facility] [address] [address] [address] Kyra PatelNote:CommentNoOhioHealth Riverside Methodist HospitalComment on above:Result Comment: For more information about Hep-2 cell [...] titers Nucleosomes, Histones Drug-induced SLE Speckled Sm, CLINICIAN ONCOLOGY, SCL-70, SLE,MCTD,PSS (diffuse form), SS-A/SS-B Sjogrens Nucleolar SCL-70, PM- 1/SCL High titers Scleroderma, PM/DM Centromere Centromere PSS (limited form)w/Crest syndrome variable Nuclear Dot Sp100,k99-xzvqnk Primary Biliary Cirrhosis Nuclear GP210, Primary Biliary Cirrhosis Membrane aida A,B,C Performed By: #### CVDTBH #### [facility] [address] [place] [address] Dr. Kyra Perry Dot PatternNoAdena Regional Medical Center on above: Performed By: #### CVDTBH #### [facility] [address] [place] [address] Dr. Kyra Perry Membrane PatternNoAdena Regional Medical Center on above:Performed By: #### CVDTBH #### [facility] [address] [place] [address] Dr. Kyra Crawleyolar PatternNormalThe Sophy HospitalComment on above: Performed By: #### CVDTBH #### [facility] [address] [address] [address] Kyra Arevalo [facility] HospitalComment on above:Performed By: #### CVDTBH #### [facility] [address] [address] [address] Kyra Talleykled [facility] HospitalComment on above: Performed By: #### CVDTBH #### [facility] [address] [place] [address] Dr. Kyra PatelSpdelorisle Appar[place] [facility] HospitalComment on above:Performed By: #### CVDTBH #### [facility] [address] [place] [address] Dr. Kyra PatelRHEUMATOID FACTORon 82-77-4626NX Latex Turbid.10.2 IU/mLNormal <14.0The [facility] SouthComascension [facility] on above:Performed By: #### CVDTBH #### [facility] [address] [place] [address] Dr. Kyra Montesinos AUTO DIFFon 00-42-0224ZOIS #0.1 103/ulNormal0.0-0.1Ohio[facility] Nelsonville Health CenterComment on above:Performed By: #### CBC #### [facility] [address] [place] [address] Dr. Kyra PatelBasophils/100 WBC (Bld)0.9 %Normal0.2-2.0The [facility] Comment on above:Performed By: #### CBC #### [facility] [address] [place] [address] Dr. Kyra Francis #0.1 103/ulNormal0.0-0.7The [facility] on above: Performed By: #### CBC #### [facility] [address] [place] [address] Dr. Kyra Davalososinophils/100 WBC (Bld)1.4 %Normal0.9-7.0The [facility] Comment on above:Performed By: #### CBC #### [facility] [address] [place] [address] Dr. Kyra Davalosrythrocyte distribution width (RBC) [Ratio]14.0 %Ghathc73.0-15.0 [facility] CenterComasc[facility] [address] [facility] on above:Performed By: #### CBC #### [facility] [address] [place] [address] Dr. Kyra PatelHematocrit (Bld) [Volume fraction]40.9 %Critically low42.0-54.0 The [facility]Comasc[facility] on above:Performed By: #### CBC #### [facility] [address] [place] [address] Dr. Kyra PatelHemoglobin (Bld) [Mass/Vol]14.2 g/dQIteckg38.0-18.0Ohio[facility] Nelson[facility] Health CenterComment on above:Performed By: #### CBC #### [facility] [address] [place] [address] Dr. Kyra Andrade #0.03 10e3/ulNormal0.00-0.03The [facility] SouthComment on above:Performed By: #### CBC #### [facility] [address] [place] [address] Dr. Kyra Andrade %0.4 %Normal0.0-0.5The [facility] on above: Performed By: #### CBC #### [facility] [address] [place] [address] Dr. Kyra NevarezH #2.5 103/ulNormal1.2-3.8The [facility] SouthComment on above:Performed By: #### CBC #### [facility] [address] [place] [address] Dr. Kyra Galindomphocytes/100 WBC (Bld)30.8 %Eulaqb63.5-60.0The [facility] SouthComment on above:Performed By: #### CBC #### [facility] [address] [place] [address] Dr. Kyra BenavidezUAL DIFF REQNONormalThe [facility] SouthComment on above: Performed By: #### CBC #### [facility] [address] [place] [address] Dr. Kyra Mckeon (RBC) [Entitic mass]34.7 pgCritically high25.9-34.0The [facility] SouthComment on above:Performed By: #### CBC #### [facility] [address] [place] [address] Dr. Kyra Mckeon (RBC) [Mass/Vol]34.7 g/mHWilrak47.9-35.2The [facility] SouthComment on above:Performed By: #### CBC #### [facility] [address] [place] [address] Dr. Kyra Mckeon (RBC) [Entitic vol]100.0 fLCritically high80.0-94.0The [facility] SouthComment on above:Performed By: #### CBC #### [facility] [address] [place] [address] Dr. Kyra Del Angel #0.8 103/ulNormal0.3-0.8The [facility] SouthComment on above:Performed By: #### CBC #### [facility] [address] [place] [address] Dr. Kyra Crabtreeocytes/100 WBC (Bld)9.5 %Normal1.7-12.0The [facility] Comment on above:Performed By: #### CBC #### [facility] [address] [place] [address] Dr. Kyra Patterson #4.6 103/ulNormal1.4-6.5The [facility] SouthComment on above:Performed By: #### CBC #### [facility] [address] [place] [address] Dr. Kyra Moonutrophils/100 WBC (Bld)57.0 %Fefsic28.0-75.0The [facility] SouthComment on above:Performed By: #### CBC #### [facility] [address] [place] [address] Dr. Kyra Arnoldlet mean volume (Bld) [Entitic vol]9.4 fLCritically low 9.5-13.5The [facility] SouthComment on above:Performed By: #### CBC #### [facility] [address] [place] [address] Dr. Kyra PatelPLT197 103/xgDxyidk539-068Tbf [facility] SouthComment on above: Performed By: #### CBC #### [facility] [address] [place] [address] Dr. Kyra PatelRBC4.09 106/ulCritically low4.70-6.10The [facility] SouthComment on above:Performed By: #### CBC #### [facility] [address] [place] [address] Dr. Kyra PatelWBC8.1 103/ulNormal4.0-11.0The [facility] SouthComment on above: Performed By: #### CBC #### [facility] [address] [place] [address] Dr. Kyra Delgado 14(COMP METB)on 74-63-4654Vhqmcnj [Mass/Vol]3.6 g/dLNormal 3.4-5.0The [facility] SouthComment on above:Performed By: #### CMP, T4, TSH #### [facility] [address] [place] [address] Dr. Kyra PatelAlbumin/Globulin [Mass ratio]1.0 {ratio}NormalThe [facility] on above:Performed By: #### CMP, T4, TSH #### [facility] [address] [place] [address] Dr. Kyra Mcmahon [Catalytic activity/Vol]86 U/CPvqynh91-152Gbl [facility] SouthComment on above:Performed By: #### CMP, T4, TSH #### [facility] [address] [place] [address] Dr. Kyra Ocampo [Catalytic activity/Vol]60 U/XFpvxla69-98Ead [facility] SouthComment on above:Performed By: #### CMP, T4, TSH #### [facility] [address] [place] [address] Dr. Kyra Bainon gap [Moles/Vol]15.0 mmol/LNormalOhiohealth Nelsonville Health Center Comment on above:Performed By: #### CMP, T4, TSH #### [facility] [address] [address] [address] Kyra PatelAST [Catalytic activity/Vol]44 U/LCritically bxpo23-72PvyOhiohealth Nelsonville Health CenterComment on above:Performed By: #### CMP, T4, TSH #### [facility] [address] [address] [address] Kyra PatelBilirubin [Mass/Vol]0.4 mg/dLNormal0.2-1.0[facility] Comment on above:Performed By: #### CMP, T4, TSH #### [facility] [address] [place] [address] Dr. Kyra PatelCalcium [Mass/Vol]8.7 mg/dLNormal8.5-10.1[facility] Comment on above:Performed By: #### CMP, T4, TSH #### [facility] [address] [place] [address] Dr. Kyra PatelChloride [Moles/Vol]103 mmol/QLynuys75-564PisOhiohealth Nelsonville Health Center Comment on above:Performed By: #### CMP, T4, TSH #### [facility] [address] [place] [address] Dr. Kyra PatelCO2 [Moles/Vol]24.2 mmol/WYcuphu41.0-32.0The [facility] Comment on above:Performed By: #### CMP, T4, TSH #### [facility] [address] [place] [address] Dr. Kyra PatelCreatinine [Mass/Vol]0.94 mg/dLNormal0.70-1.30The [facility] SouthComment on above:Performed By: #### CMP, T4, TSH #### [facility] [address] [place] [address] Dr. Kyra DavalosGFR-AF GHANAIAN>60Normal>=60The [facility] SouthComment on above:Performed By: #### CMP, T4, TSH #### [facility] [address] [address] [address] Kyra DavalosGFR-NON AF GHANAIAN>60Normal>=60The [facility] SouthComment on above:Performed By: #### CMP, T4, TSH #### [facility] [address] [address] [address] Kyra PatelGlobulin (S) [Mass/Vol]3.5 g/dLNormAultman HospitalComment on above:Performed By: #### CMP, T4, TSH #### [facility] [address] [address] [address] Kyra PatelGlucose [Mass/Vol]96 mg/kMBowwuv38-779ApfOhiohealth Nelsonville Health Center Comment on above:Performed By: #### CMP, T4, TSH #### [facility] [address] [place] [address] Dr. Kyra PatelPotassium [Moles/Vol]4.2 mmol/LNormal3.5-5.1The [facility] Comment on above:Performed By: #### CMP, T4, TSH #### [facility] [address] [address] [address] Kyra PatelProtein [Mass/Vol]7.1 g/dLNormal6.4-8.2[facility] Comment on above:Performed By: #### CMP, T4, TSH #### [facility] [address] [address] [address] Kyra PatelSodium [Moles/Vol]138 mmol/FOrnqsc148-554Adc [facility] Comment on above:Performed By: #### CMP, T4, TSH #### [facility] [address] [address] [address] Kyra PatelUrea nitrogen [Mass/Vol]14.0 mg/dLNormal7.0-18.0The [facility] SouthComment on above:Performed By: #### CMP, T4, TSH #### [facility] [address] [address] [address] Kyra Iraheta nitrogen/Creatinine [Mass ratio]14.9 mg/mgNormalThe [facility] SouthComment on above:Performed By: #### CMP, T4, TSH #### [facility] [address] [place] [address] Dr. Kyra PatelSELuciano RATE WESTERGRENon 37-75-0487MKH RATE4 mm/hrNormal<=15The [facility]Comasc[facility] on above:Performed By: #### SEDR #### [facility] [address] [place] [address] Dr. Kyra PatelT4on 71-18-5687A9 [Mass/Vol]6.20 ug/dLNormal4.50-12.10The [facility] SouthComment on above:Performed By: #### CMP, T4, TSH #### [facility] [address] [place] [address] Dr. Kyra PatelTSHoedmund 83-43-0682EZX3.451 uIU/mLNormal0.358-3.740The [facility] SouthComment on above:Performed By: #### CMP, T4, TSH #### [facility] [address] [place] [address] Dr. Kyra PatelCoviluciano-19 PCR ([facility])on 66-99-4454TYHD-CoV-2 (COVID-19) RNA COLBY+probe Ql (Unsp spec)Not detectedNormalNOT DETECTEDThe [facility] Comment on above:Result Comment: This test is not yet approved or cleared by the [place] FDA. When there are no FDA-approved or cleared tests available, and other criteria are met, FDA can make tests available under an emergency access mechanism called an Emergency Use Authorization (EUA). The EUA for this test is supported by the [place] of Health and Human Service's (HHS's) declaration that circumstances exist to justify the emergency use of in vitro diagnostics for the detection and/or diagnosis of the virus that causes COVID- 19. This EUA will remain in effect (meaning [...] of clinical signs and symptoms consistent with SARS-CoV-2.Performed By: #### CVDTBH #### [facility] [address] [place] [address] Dr. Kyra PatelCovid-19 PCR ([facility])on 26-12-2640ZJFG-CoV-2 (COVID-19) RNA COLBY+probe Ql (Unsp spec)DetectedCritically abnormalNOT DETECTEDThe [facility]Comment on above:Result Comment: This test is not yet approved or cleared by the [place] FDA. When there are no FDA-approved or cleared tests available, and other criteria are met, FDA can make tests available under an emergency access mechanism called an Emergency Use Authorization (EUA). The EUA for this test is supported by the [place] of Health and Human Service's (HHS's) declaration [...] no longer be used). Performed By: #### CVDTBH #### [facility] [address] [place] [address] Dr. Kyra Montesinos AUTO DIFFon 90-84-1360MUOR #0.1 103/ulNormal0.0-0.1The [facility] SouthComment on above:Performed By: #### CBC #### [facility] [address] [place] [address] Dr. Kyra PatelBasophils/100 WBC (Bld)0.8 %Normal0.2-2.0The [facility] Comment on above:Performed By: #### CBC #### [facility] [address] [place] [address] Dr. Kyra Francis #0.2 103/ulNormal0.0-0.7The [facility] SouthComment on above: Performed By: #### CBC #### [facility] [address] [address] [address] Kyra Davalososinophils/100 WBC (Bld)2.1 %Normal0.9-7.0The [facility] Comment on above:Performed By: #### CBC #### [facility] [address] [place] [address] Dr. Kyra Davalosrythrocyte distribution width (RBC) [Ratio]13.7 %Pmhgyr34.0-15.0 The [facility] SouthComment on above:Performed By: #### CBC #### [facility] [address] [place] [address] Dr. Kyra PatelHematocrit (Bld) [Volume fraction]43.1 %Hftywn96.0-54.0The [facility] SouthComment on above:Performed By: #### CBC #### [facility] [address] [place] [address] Dr. Kyra PatelHemoglobin (Bld) [Mass/Vol]14.7 g/bEQcsdmx71.0-18.0The [facility] SouthComment on above:Performed By: #### CBC #### [facility] [address] [place] [address] Dr. Kyra Andrade #0.05 10e3/ulCritically high0.00-0.03The [facility] Comment on above:Performed By: #### CBC #### [facility] [address] [place] [address] Dr. Kyra Andrade %0.6 %Critically high0.0-0.5The [facility] SouthComment on above:Performed By: #### CBC #### [facility] [address] [place] [address] Dr. Kyra NevarezH #2.4 103/ulNormal1.2-3.8The [facility] SouthComment on above:Performed By: #### CBC #### [facility] [address] [place] [address] Dr. Kyra Galindomphocytes/100 WBC (Bld)27.4 %Kfypxi32.5-60.0The [facility] on above:Performed By: #### CBC #### [facility] [address] [address] [address] Kyra Reyes DIFF REQNONormalThe [facility]Comment on above: Performed By: #### CBC #### [facility] [address] [place] [address] Dr. Kyra Mckeon (RBC) [Entitic mass]34.0 irGroawf91.9-34.0The [facility] on above:Performed By: #### CBC #### [facility] [address] [place] [address] Dr. Kyra Mckeon (RBC) [Mass/Vol]34.1 g/hVEahiau80.9-35.2The [facility] on above:Performed By: #### CBC #### [facility] [address] [place] [address] Dr. Kyra MckeonV (RBC) [Entitic vol]99.8 fLCritically high80.0-94.0The [facility] on above:Performed By: #### CBC #### [facility] [address] [place] [address] Dr. Kyra Del Angel #0.9 103/ulCritically high0.3-0.8ThW[facility] Comment on above:Performed By: #### CBC #### [facility] [address] [place] [address] Dr. Kyra Crabtreeocytes/100 WBC (Bld)9.8 %Normal1.7-12.0[facility] Comment on above:Performed By: #### CBC #### [facility] [address] [place] [address] Dr. Kyra Patterson #5.3 103/ulNormal1.4-6.5The [facility] Centerment on above:Performed By: #### CBC #### [facility] [address] [place] [address] Dr. Kyra Moonutrophils/100 WBC (Bld)59.3 %Zecpof29.0-75.0The [facility] HospitalComment on above:Performed By: #### CBC #### [facility] [address] [address] [address] Kyra Becerril mean volume (Bld) [Entitic vol]9.8 fLNormal9.5-13.5The [facility] on above:Performed By: #### CBC #### [facility] [address] [address] [address] Kyra PatelPLT195 103/aqOjmqhf196-001Mdo [facility] on above: Performed By: #### CBC #### [facility] [address] [address] [address] Kyra PatelRBC4.32 106/ulCritically low4.70-6.10The [facility] on above:Performed By: #### CBC #### [facility] [address] [place] [address] Dr. Kyra PatelWBC8.9 103/ulNormal4.0-11.0The [facility] on above: Performed By: #### CBC #### [facility] [address] [place] [address] Dr. Kyra PatelDIRECT LDLon [id number] in LDL [Mass/Vol]135 mg/dL NormalMadison Health on above:Performed By: #### DLDL, CMP, LIPID #### [facility] [address] [place] [address] Dr. Kyra PatelDLDL NORMALSEE [facility] on above: Result Comment: <100 mg/dl OPTIMAL 100 - 129 mg/dl NEAR OR ABOVE OPTIMAL 130 - 159 mg/dl BORDERLINE HIGH 160 - 189 mg/dl HIGH >190 mg/dl VERY HIGHPerformed By: #### DLDL, CMP, LIPID #### [facility] [address] [place] [address] Dr. Kyra PatelLIPID PROFILEon [id number]-HDL RATIO NORMSEE [facility] on above:Result Comment: 3.3 - 4.4 LOW RISK 4.4 - 7.1 AVERAGE RISK 7.1 - 11.0 MODERATE RISK >11.0 HIGH RISKPerformed By: #### DLDL, CMP, LIPID #### [facility] [address] [place] [address] Dr. Kyra PatelCholesterol [Mass/Vol]277 mg/dLCritically high<=200The [facility] on above:Performed By: #### DLDL, CMP, LIPID #### [facility] [address] [place] [address] Dr. Kyra PatelCholesterol in HDL [Mass/Vol]36 mg/dLCritically fgn97-30Dym [facility]Comment on above:Performed By: #### DLDL, CMP, LIPID #### [facility] [address] [place] [address] Dr. Kyra PatelCholesterol in LDL [Mass/Vol]81.6 mg/dLFort Hamilton HospitalComment on above:Performed By: #### DLDL, CMP, LIPID #### [facility] [address] [place] [address] Dr. Kyra Leeesterandrew.total/Cholesterol in HDL [Mass ratio]7.7 {ratio} NormalOhiohealth Nelsonville Health CenterComasc[facility] on above:Performed By: #### DLDL, CMP, LIPID #### [facility] [address] [place] [address] Dr. Kyra PatelHDL NORMAL> or = 60 mg/dl - LOW CARDIOVASCULAR RISK <40 mg/dl - HIGH CARDIOVASCULAR RISKFort Hamilton HospitalComasc[facility] on above:Performed By: #### DLDL, CMP, LIPID #### [facility] [address] [place] [address] Dr. Kyra Barrios CALC NORMALSEE BELOWFort Hamilton HospitalComasc[facility] st[facility] on above:Result Comment: <100 mg/dl OPTIMAL 100 - 129 mg/dl NEAR OR ABOVE OPTIMAL 130 - 159 mg/dl BORDERLINE HIGH 160 - 189 mg/dl HIGH >190 mg/dl VERY HIGH Performed By: #### DLDL, CMP, LIPID #### [facility] [address] [place] [address] Dr. Yilan ChangTriglyceride [Mass/Vol]797 mg/dLCritically high<=150The [facility] Centerment on above:Performed By: #### DLDL, CMP, LIPID #### [facility] [address] [address] [address] Kyra PatelVLDL ZGNE204.4 mg/dLNormalThe [facility]Comment on above: Performed By: #### DLDL, CMP, LIPID #### [facility] [address] [address] [address] Kyra PatelPROF 14(COMP METB)on [id number] [Mass/Vol]3.5 g/dLNormal 3.4-5.0The [facility] Centerment on above:Performed By: #### DLDL, CMP, LIPID #### [facility] [address] [place] [address] Dr. Kyra PatelAlbumin/Globulin [Mass ratio]0.9 {ratio}NormalThe [facility]Comment on above:Performed By: #### DLDL, CMP, LIPID #### [facility] [address] [place] [address] Dr. Kyra Mcmahon [Catalytic activity/Vol]78 U/VYofggf77-299Vni [facility] on above:Performed By: #### DLDL, CMP, LIPID #### [facility] [address] [place] [address] Dr. Kyra Ocampo [Catalytic activity/Vol]50 U/UVxtbap48-03Dor [facility] Centerment on above:Performed By: #### DLDL, CMP, LIPID #### [facility] [address] [place] [address] Dr. Kyra Jacobs gap [Moles/Vol]13.7 mmol/LNormalThe [facility] on above:Performed By: #### DLDL, CMP, LIPID #### [facility] [address] [place] [address] Dr. Kyra Angel [Catalytic activity/Vol]30 U/DTnawnw77-30Jrl [facility] Centerment on above:Performed By: #### DLDL, CMP, LIPID #### [facility] [address] [place] [address] Dr. Kyra PatelBilirubin [Mass/Vol]0.3 mg/dLNormal0.2-1.0[facility] Comment on above:Performed By: #### DLDL, CMP, LIPID #### [facility] [address] [place] [address] Dr. Kyra PatelCalcium [Mass/Vol]8.6 mg/dLNormal8.5-10.1[facility] Comment on above:Performed By: #### DLDL, CMP, LIPID #### [facility] [address] [place] [address] Dr. Kyra PatelChloride [Moles/Vol]104 mmol/GCohdkp07-181AuvOhiohealth [facility] Comment on above:Performed By: #### DLDL, CMP, LIPID #### [facility] [address] [place] [address] Dr. Kyra PatelCO2 [Moles/Vol]23.8 mmol/GInbedz55.0-32.0[facility] Comment on above:Performed By: #### DLDL, CMP, LIPID #### [facility] [address] [place] [address] Dr. Kyra PatelCreatinine [Mass/Vol]1.02 mg/dLNormal0.70-1.30The [facility]Comment on above:Performed By: #### DLDL, CMP, LIPID #### [facility] [address] [place] [address] Dr. Kyra DavalosGFR-AF GHANAIAN>60Normal>=60The [facility] on above:Performed By: #### DLDL, CMP, LIPID #### [facility] [address] [place] [address] Dr. Kyra DavalosGFR-NON AF GHANAIAN>60Normal>=60The [facility] on above:Performed By: #### DLDL, CMP, LIPID #### [facility] [address] [place] [address] Dr. Kyra PatelGlobulin (S) [Mass/Vol]3.7 g/dLNormAultman HospitalComment on above:Performed By: #### DLDL, CMP, LIPID #### [facility] [address] [address] [address] Kyra PatelGlucose [Mass/Vol]113 mg/dLCritically xsvg50-014Mbk [facility]Comment on above:Performed By: #### DLDL, CMP, LIPID #### [facility] [address] [address] [address] Kyra PatelPotassium [Moles/Vol]3.5 mmol/LNormal3.5-5.1The [facility] Comment on above:Performed By: #### DLDL, CMP, LIPID #### [facility] [address] [address] [address] Kyra PatelProtein [Mass/Vol]7.2 g/dLNormal6.4-8.2[facility] Comment on above:Performed By: #### DLDL, CMP, LIPID #### [facility] [address] [address] [address] Kyra PatelSodium [Moles/Vol]138 mmol/OOmpudk078-141Nng [facility] Comment on above:Performed By: #### DLDL, CMP, LIPID #### [facility] [address] [address] [address] Kyra PatelUrea nitrogen [Mass/Vol]12.0 mg/dLNormal7.0-18.0The [facility]Comment on above:Performed By: #### DLDL, CMP, LIPID #### [facility] [address] [place] [address] Dr. Kyra PatelUrea nitrogen/Creatinine [Mass ratio]11.8 mg/mgNoOhioHealth Riverside Methodist HospitalComment on above:Performed By: #### DLDL, CMP, LIPID #### [facility] [address] [place] [address] Dr. Kyra Patel Vital Signs Date TimeVital SignValuePerforming OonbtnumpPxbkqkpm88-70-6802 09:140400Body wzaimw050.88 cmPamela Emmanuel [employer] Work Phone: 1([phone] [place], [place] 6745409-04-2025 09:14-0400 Body mass index (BMI) [Ratio]29.2 kg/q5Upeuwh Emmanuel [employer] Work Phone: 1(419)483-[address] [place], [place] 6745409-04-2025 09:14-0400 Body .97 kgPamela Emmanuel [employer] Work Phone: 1(419)483-[address] [place], [place] 6745409-04-2025 09:14-0400 Diastolic blood ciiudkub27 mm[Hg]Agustina Emmanuel [employer] Work Phone: 1(419)[address]09-04-2025 09:14-0400 Heart rate79 /minPamela Emmanuel [employer] Work Phone: 1(419)[address] [place], [place] 6706609-04-2025 09:14-0400 Respiratory rate20 /minPamela Emmanuel [employer] Work Phone: 1(419)[address] [place], [place] 6706609-04-2025 09:14-0400 Systolic blood yhxxbptp003 mm[Hg]Agustina Emmanuel [employer] Work Phone: 1(419)[address] [place], [place] 6706608-13-2025 09:26-0400 Body cedkzh753.88 cmPamela Emmanuel [employer] Work Phone: 1(419)[address] [place], [place] 6706608-13-2025 09:26-0400 Body mass index (BMI) [Ratio]28.3 kg/w8Fedaez Emmanuel [employer] Work Phone: 1(419)483-[address] [place], [place] 6745408-13-2025 09:26-0400 Body .8 kgPamela Emmanuel [employer] Work Phone: 1(419)[address] [place], [place] 6706608-13-2025 09:26-0400 Diastolic blood ohqrkeve55 mm[Hg]Agustina Emmanuel [employer] Work Phone: 1(419)[address]08-13-2025 09:26-0400 Heart rate55 /minPamela Emmanuel [employer] Work Phone: 1(419)[address]08-13-2025 09:26-0400 SaO2% (BldA) [Mass fraction]99 %Agustina Emmnauel [employer] Work Phone: 1(600)[address]08-13-2025 09:26-0400 Systolic blood qnrauqwo943 mm[Hg]Agustina Emmanuel [employer] Work Phone: 1(417)[address]07-02-2025 08:41-0400 Diastolic blood svzhitgf10 mm[Hg]Agustina Emmanuel [employer] Work Phone: 1(240)[address]07-02-2025 08:41-0400 Heart rate72 /minPamela Emmanuel [employer] Work Phone: 1(796)[address] [place], [place] 6706607-02-2025 08:41-0400 SaO2% (BldA) [Mass fraction]98 %Agustina Emmanuel [employer] Work Phone: 1(831)[address]07-02-2025 08:41-0400 Systolic blood xuylkmzx758 mm[Hg]Agustina Emmanuel [employer] Work Phone: 1(592)[address] [place], [place] 6706607-02-2025 08:39-0400 Body mgcoko392.88 cmPamela Emmanuel [employer] Work Phone: 1(644)[address] [place], [place] 6706607-02-2025 08:39-0400 Body mass index (BMI) [Ratio]28.2 kg/c5Paiozl Emmanuel [employer] Work Phone: 1(835)[address]07-02-2025 08:39-0400 Body rupqfa12.34 kgPamela Emmanuel [employer] Work Phone: 1(893)[address]05-22-2025 08:52-0400 Diastolic blood mmxcnxex89 mm[Hg]Agustina Emmanuel [employer] Work Phone: 1(450)[address]05-22-2025 08:52-0400 Systolic blood bvhpdroo337 mm[Hg]Agustina Emmanuel [employer] Work Phone: 1(781)[address]05-22-2025 08:49-0400 Body xhkitq661.88 cmPamela Emmanuel [employer] Work Phone: 1([phone])5471990[facility]05-22-2025 08:49-0400 Body mass index (BMI) [Ratio]28.2 kg/c7IkzpycAgustina Bermanmer [employer] Work Phone: [phone]05-22-2025 08:49-0400 Body xpjwjwywpiz50.9 [degF]Agustina Emmanuel [employer] Work Phone: 1(143)[address]05-22-2025 08:49-0400 Body bvikpz32.34 kgIsabela Emmanuel [employer] Work Phone: 1(931)[address]05-22-2025 08:49-0400 Heart rate82 /minPagala Emmanuel [employer] Work Phone: 1(262)[address] [place], [place] 6706605-22-2025 08:49-0400 Respiratory rate20 /minIsabela Emmanuel [employer] Work Phone: 1(092)[facility]1990[facility]05-22-2025 08:49-0400 SaO2% (BldA) [Mass fraction]97 %Agustina Bermanmer [employer] Work Phone: 1(408)[address] [place], [place] 6706601-07-2025 08:10-0500 Blood Pressure LocationMichael NILL [phone]-DlwvmC[facility] [place] 08-01-2024 08:10-0500Diastolic blood yymwiphg96 mm[Hg]Silvestre NILL [phone]-ZmpciC[facility] [place] 08-01-2024 08:10-0500Heart rate89 /minMichael NILL [phone]-PkrxzThe [facility] [place] 08-01-2024 08:10-0500Respiratory rate16 /minMichael NILL [phone]-DqdljC[facility] [place] 08-01-2024 08:10-0500Systolic blood zgancypj325 mm[Hg]Silvestre NILL [phone]-MnklsC[facility] [place] 06-15-2024 09:01-0500Body qwolho399.88 cmPnishant Bermanmer [employer] Work Phone: [facility]11-21-2024 09:01-0500 Body mass index (BMI) [Ratio]27.8 kg/k6Qvlvtr Emmanuel [employer] Work Phone: [facility]11-21-2024 09:01-0500 Body xaijocdlnnq33.1 [degF]Agustina Bermanmer [employer] Work Phone: 1([phone])[address]11-21-2024 09:01-0500 Body uumyvj34.98 kgPafazal Emmanuel [employer] Work Phone: 1(728)[address] [place], [place] 6706611-21-2024 09:01-0500 Diastolic blood cectirrh42 mm[Hg]Agustina Bermanmer [employer] Work Phone: 1(274)483-[address] [place], [place] 6745411-21-2024 09:01-0500 Heart rate84 /minIsabela Emmanuel [employer] Work Phone: 1(307)[address] [place], [place] 6706611-21-2024 09:01-0500 Respiratory rate20 /minAgustina Emmanuel [employer] Work Phone: 1(701)[address] [place], [place] 6706611-21-2024 09:01-0500 SaO2% (BldA) [Mass fraction]97 %Agustina Bermanmer [employer] Work Phone: 1(770)483-[address] [place], [place] 6745411-21-2024 09:01-0500 Systolic blood mm[Hg]Agustina Bermanmer [employer] Work Phone: 1(443)[address]08-01-2024 08:57-0400 Body mdyqwj678.88 cmNP-C Agustina Bermanmer Work Phone: 1(300)[address]08-01-2024 08:57-0400 Body mass index (BMI) [Ratio]28.5 kg/m2NP-C Agustina Emmanuel Work Phone: 1(309)524-[address] [place], [place] 6745408-01-2024 08:57-0400 Body moqslhaqyrx53.3 [degF][employer] Agustina Benitez Work Phone: 1(133)[address]08-01-2024 08:57-0400 Body exmrtx58.25 kgNP-C Agustina Benitez Work Phone: 1(669)[address] [place], [place] 6706608-01-2024 08:57-0400 Diastolic blood imvytpod06 mm[Hg][employer] Agustina Bermanmer Work Phone: 1(370)[address]08-01-2024 08:57-0400 Heart rate81 /minNP-C Agustina Benitez Work Phone: 1(013)[address] [place], [place] 6706608-01-2024 08:57-0400 Respiratory rate20 /minNP-C Agustina Benitez Work Phone: 1(070)[address] [place], [place] 6706608-01-2024 08:57-0400 SaO2% (BldA) [Mass fraction]97 %[employer] Agustina Benitez Work Phone: 1(423)[address] [place], [place] 6706608-01-2024 08:57-0400 Systolic blood ekthhbny613 mm[Hg][employer] Agustina Benitez Work Phone: 1(350)[address] [place], [place] 6706605-30-2024 08:57-0400 Body mkycpp809.88 cmDO [employer] Work Phone: 1(768)[address]05-30-2024 08:57-0400 Body mass index (BMI) [Ratio]28.7 kg/m2DO [employer] Work Phone: 1(113)[address]05-30-2024 08:57-0400 Body tqvtkloftsd33.6 [degF]DO [employer] Work Phone: 1(058)[address]05-30-2024 08:57-0400 Body corjca46.16 kgDO [employer] Work Phone: 1(193)[address]05-30-2024 08:57-0400 Diastolic blood pxzxyimm25 mm[Hg]DO [employer]agan [employer] Work Phone: 1(192)[address]05-30-2024 08:57-0400 Heart rate92 /Delmi Oro Work Phone: 1(281)[address] [place], [place] 0441405-30-2024 08:57-0400 Respiratory rate20 /Delmi Oro Work Phone: 1(050)[address] [place], [place] 0441405-30-2024 08:57-0400 SaO2% (BldA) [Mass fraction]95 %DO Keagan Oro Work Phone: 1(267)[address] [place], [place] 0441405-30-2024 08:57-0400 Systolic blood lrwkevgh979 mm[Hg]DO Keagan Oro Work Phone: 1(259)[address] [place], [place] 0441403-26-2024 07:21-0400 Body esluzb701.88 cmDO Keagan Oro Work Phone: 1(972)[address] [place], [place] 0441403-26-2024 07:21-0400 Body mass index (BMI) [Ratio]27.1 kg/m2DO Keagan Oro Work Phone: 1(183)[address] [place], [place] 0441403-26-2024 07:21-0400 Body ddogcs00.71 kgDO Keagan Oro Work Phone: 1(492)[address] [place], [place] 0441403-26-2024 07:10-0400 Body mtitjhewkef17.2 [degF]DO Keagan Oro Work Phone: 1(822)[address] [place], [place] 0441403-26-2024 07:10-0400 Diastolic blood csamocxq49 mm[Hg]DO Keagan Oro Work Phone: 1(289)[address] [place], [place] 0441403-26-2024 07:10-0400 Heart rate87 /Delmi Oro Work Phone: 0(064)[address] [place], [place] 0441403-26-2024 07:10-0400 Respiratory rate20 /Delmi Oro Work Phone: 1(866)[address] [place], [place] 0441403-26-2024 07:10-0400 Systolic blood xvuqurnw165 mm[Hg]DO Keagan Oro Work Phone: 1(306)[address] [place], [place] 0441412-28-2023 07:58-0500 Body .88 cmDO [employer] Work Phone: 1(535)[address] [place], [place] 0441412-28-2023 07:58-0500 Body mass index (BMI) [Ratio]27.1 kg/m2DO [employer] Work Phone: 1(197)[address] [place], [place] 0441412-28-2023 07:58-0500 Body fyrcux36.71 kgDO [employer] Work Phone: 1(602)[address] [place], [place] 0441412-28-2023 07:45-0500 Diastolic blood swxkjydr45 mm[Hg]DO [employer] Work Phone: 1(729)[address] [place], [place] 0441412-28-2023 07:45-0500 Heart rate84 /minDO [employer] Work Phone: 1(485)[address] [place], [place] 0441412-28-2023 07:45-0500 Respiratory rate20 /minDO [employer] Work Phone: 1(332)[address] [place], [place] 0441412-28-2023 07:45-0500 Systolic blood avilvdvh482 mm[Hg]DO [employer] Work Phone: 1(596)[address] [place], [place] 0441412-13-2023 07:19-0500 Body zadquamvwmv21.8 [degF]DO [employer] Work Phone: 1(804)[address] [place], [place] 0441411-24-2023 12:47-0500 Diastolic blood ipwvvbow31 mm[Hg]DO [employer] Work Phone: 1(160)[address] [place], [place] 0441411-24-2023 12:47-0500 Heart rate78 /minDO [facility] [employer] Work Phone: 1(959)[address] [place], [place] 0441411-24-2023 12:47-0500 Respiratory rate18 /minDO [employer] Work Phone: 1(334)[address] [place], [place] 0441411-24-2023 12:47-0500 SaO2% (BldA) [Mass fraction]98 %DO [employer] Work Phone: 1(309)[address] [place], [place] 0441411-24-2023 12:47-0500 Systolic blood fqnldzok865 mm[Hg]DO Keagan Oro Work Phone: [facility]11-24-2023 05:13-0500 Body tcfkzruobyx94 [degF]DO Keagan Oro Work Phone: [facility]11-24-2023 05:12-0500 Body .88 cmDO Keagan Oro Work Phone: [facility]11-24-2023 05:12-0500 Body jwxayb88.71 kgDO Keagan Oro Work Phone: [facility]11-06-2023 09:45-0500 Body ysiijn042.88 cmTony Vegaban Other [employer] Other 08-28-2023 10:30-0400Body vjubdk159.88 cmTony Lieberman Other [employer] Other 08-28-2023 10:30-0400Body mass index (BMI) [Ratio] 26.58 kg/k6JjoovTony Lieberman Other [employer] Other 08-28-2023 10:30-0400Body wnhomzcpwcg50.2 [degF]Tony Lieberman Other [employer] Other 08-28-2023 10:30-0400Body kuhobt71.91 kgTony Lieberman Other [employer] Other 08-28-2023 10:30-0400Diastolic blood hokbiwsl23 mm[Hg] Tony Lieberman Other [employer] Other 08-28-2023 10:30-0400Respiratory rate20 /minTony Lieberman Other [employer] Other 08-28-2023 10:30-2237RvS9% (BldA) [Mass fraction]96 % [facility] [employer] Other 08-28-2023 10:30-0400Systolic blood ikhkjtcf567 mm[Hg] Tony Lieberman Other [facility] [employer] Other Encounters Encounter DateEncounter TypeCare ProviderFacilityStart: 05-09-2025 End: 15-50-6702Qfcuytn encounter procedureIris Mccall APRN-MRI [address] [facility] Work Phone: Start: 05-09-2025 End: 78-71-9391fgyusebbqnGfbpqa Michaela Emmanuel [employer] Work Phone: [facility] Work Phone: Start: 04-23-2025 End: 77-09-9238wuulbawbtlNtnfem Michaela Emmanuel [employer] Work Phone: [facility] Work Phone: Start: 04-23-2025 End: 09-97-2114Ejczpdzzee RecurringNicole J Viviane DO-Physical Therapy [place] Work Phone: start: 03-29-2025 End: 29-80-3674qxaquirugvTkdolv Michaela Emmanuel [employer] Work Phone: [place] Work Phone: Start: 03-29-2025 End: 64-90-0978Wuvypkt encounter procedureIris Mccall SOFTWARE DESIGNER-FPG Neurology [place] Work Phone: Start: 51-90-9194Mfipdwsaei RecurringNicole J Viviane DO-Physical Therapy [place] Work Phone: start: 03-07-2025 End: 38-95-0075aybdsffmgzQrsehz Michaela Emmanuel EXHIBITION CARVER-C Work Phone: [place] Work Phone: Start: 03-07-2025 End: 69-96-3743Nejcyfk encounter procedureIris Mccall [facility] Neurology Work Phone: Start: 25-26-7243Ezngtkrnvq RecurringNicole J Viviane DO-Physical Therapy [place] Work Phone: start: 02-15-2025 End: 85-01-0729slpplhdgchQuvbwr Michaela Emmanuel EXHIBITION CARVER-C Work Phone: [place] Work Phone: Start: 02-15-2025 End: 43-87-1002Wzzlksq encounter procedureNicole Brown [facility] Neurology Work Phone: Start: 01-24-2025 End: 37-68-9408jumxivstduIpwiqb Michaela Emmanuel EXHIBITION CARVER-C Work Phone: [place] Work Phone: Start: 01-24-2025 End: 03-24-5053Xngfrkc encounter procedureNicole Brown Viviane DO-FPG Neurology [place] Work Phone: Start: 12-14-2024 End: 91-03-6788fdriidgeaqDvmyqp Michaela Emmanuel EXHIBITION CARVER-C Work Phone: [place] Work Phone: Start: 12-14-2024 End: 77-03-8748Aommrlt encounter procedurePamela Emmanuel EXHIBITION CARVER-C Work Phone: [facility] Physician [facility] Pulmonary Work Phone: Start: 47-70-5026Tsq-patient / Non-visitPamela Emmanuel EXHIBITION CARVER-C Work Phone: [facility] Physician [facility] Pulmonary Work Phone: Start: 11-24-2024 End: 66-70-5543Wkjhiwp encounter procedurePafazal Benitez EXHIBITION CARVER-C Work Phone: [facility]-Respiratory Therapy Work Phone: Start: 11-24-2024 End: 61-55-4972votbyymedxRsodhs Michaela Bermanmer EXHIBITION CARVER-C Work Phone: [facility] Work Phone: Start: 09-19-2024 End: 45-68-0792Eotlxuv encounter procedurePagala Emmanuel EXHIBITION CARVER-C Work Phone: [facility]-Lab [address] Work Phone: Start: 09-19-2024 End: 80-16-9216fzkzwpzdgbJlawzr Michaela Benitez EXHIBITION CARVER-C Work Phone: [facility] Work Phone: Start: 09-08-2024 End: 20-84-6711mpaxosbusnGeynklv R NILLFacility:[facility] Hospitaltart: 09-08-2024 End: 77-71-6336Hhkdmtz encounter procedureMichael R NILL [phone]-EgflkC[facility] General [facility] [place] Start: 08-23-2024 End: 96-20-0416tgxpqqxbeoGgscyzc R NillL[facility] Work Phone: Start: 08-23-2024 End: 00-53-7088Semmnvzp ReferredMichael Joaquín CHAVEZ Work Phone: [facility]-LAB Path Spec [place] HospStart: 08-23-2024 End: 98-61-7545xqrlxnrcqzBaculnn R NILLFacility:CD:[id number]: 08-08-2024 End: 10-29-2899sgbhwpzpzrHUSXRYV [facility] Hospitaltart: 08-01-2024 End: 83-34-4652tznygbjxupIUEVDF S EMMANUELFacility: Sukitart: 08-01-2024 End: 81-58-4272Vqnwjhe encounter procedureMichael R NILL [phone]-JeeksCleveland Clinic Medina Hospital General Surgery [place] Start: 35-74-2360ajoihbgkviRmiqoso NILLFacility: Sukitart: 06-15-2024 End: 35-36-0140iwjctxmxfmTrgscp Michaela Benitez EXHIBITION CARVER-C Work Phone: [place] Work Phone: Start: 06-15-2024 End: 99-53-2562Pnkxpfz encounter procedurePafazal Benitez EXHIBITION CARVER-C Work Phone: [facility] Pulmonary Disease Work Phone: Start: 25-24-9642pbchnmymvuOwqrzna NILLFacility: AlejandroueStart: 04-28-2024 End: 63-35-5367tawlsvlxykZG-C Agustinakaren Bermanmer Work Phone: [facility] Work Phone: Start: 04-28-2024 End: 63-52-5353Rffxpoc encounter procedureNP-C Agustinakaren Benitez Work Phone: [facility]-CT Scan [address] [place] Work Phone: Start: 02-24-2024 End: 88-70-7319lozxyxghpfEI-C Agustinakaren Bermanmer Work Phone: [place] Work Phone: Start: 02-24-2024 End: 86-46-1092Brlbmet encounter procedureNP-C Agustinakaren Bermanmer Work Phone: [facility]-FPG Pulmonary Disease Work Phone: Start: 05-01-6817Tzb-patient / Swu-awdefBY-C Agustina Benitez Work Phone: [facility] Pulmonary Disease Work Phone: Start: 01-17-2024 End: 46-34-0221tnddennhpwRA-C Agustina Jennings Emmanuel Work Phone: [facility] Work Phone: Start: 01-17-2024 End: 40-48-0547Jgpgxnt encounter procedureNP-C Agustina Emmanuel Work Phone: [facility]-Electrodiagnostics Work Phone: Start: 12-23-2023 End: 03-88-4642ezjccswzfaDK [facility] Work Phone: [phone] [place] [address] Center Work Phone: Start: 12-23-2023 End: 69-63-7284Qacgqhp encounter procedureDO [facility] Work Phone: [facility]-FPG Pulmonary Disease Work Phone: Start: 10-19-2023 End: 64-73-6646ociblicnxqEE [facility] Work Phone: [phone] [place] [address] Ctr Work Phone: Start: 10-19-2023 End: 86-33-5627Nnggihshbn RecurringDO [facility] Work Phone: [phone] [place] [address] Ctr-Wound Care [place] Work Phone: Start: 07-22-2023 End: 61-58-4627asgyytviucGS [facility] Work Phone: [phone] [place] [address] Ctr Work Phone: Start: 07-22-2023 End: 00-06-4140Utxpzgz encounter procedureDO [facility] Work Phone: [phone] [place] [address] Ctr-Respiratory Therapy Work Phone: Start: 88-46-1848Jlaeucnvez RecurringDO [facility] Work Phone: [facility]-Wound Care [place] Work Phone: Start: 06-18-2023 End: 14-08-4420Xlkwnwczx department patient visitDO Keagan Oro Work Phone: [facility]-Emergency Room Work Phone: Start: 05-31-2023 End: 70-04-7413ogbhqeuffzIkecv Chaban Other [employer] Other Start: 48-25-9529Qisvzm outpatient visit 15 minutes Kamal ChabanFPG Pulmonary DiseaseStart: 05-21-2023 End: 91-82-5652tlgaoosjnlQG Keagan Oro Work Phone: [facility] Work Phone: Start: 05-21-2023 End: 97-49-2384Xxzyvfy encounter procedureDO Keagan Oro Work Phone: [facility]-CT Scan [address] [place] Work Phone: Start: 03-22-2023 End: 60-80-0049kmraisswqhAewgz Chaban Other [employer] Other Start: 66-70-9139Hssfol outpatient new 45 minutesKamal ChabanFPG Pulmonary DiseaseStart: 82-30-6321zciffyizvpWyputxfv:9090Start: 11-24-2022 End: 31-98-3747dpinlytngeOT Johnny Coronado Work Phone: [facility] Work Phone: Start: 11-24-2022 End: 80-80-9858Vkkwswt encounter procedureMD Johnny Coroando Work Phone: [facility]-Lab [address] Work Phone: Start: 59-93-1232Oxfnrlows for general adult medical examination without abnormal findingsDR KEAGAN [facility] HospitalStart: 10-15-2022 End: 03-87-8021evjsjlgezvDU KEAGAN OROFacility:K1Thcpf: 10-15-2022 End: 16-82-1509Yzosfvpwv for general adult medical examination without abnormal findingsDR KEAGAN OROFacility:C4Zqxia: 07-13-2022 End: 19-98-9968nslylezmvgFQ CHARLES HOUSEFacility:V8Jzjhv: 07-07-2022 End: 69-33-8744jwiolrqtkuFK CHARLES CORNWALL ON HUDSONFacility:V5Zlgay: 01-28-2022 End: 36-02-1630huolwkvnlvNT KEAGAN [facility] Hospitalcility:H1 Procedures DateProcedureProcedure DetailPerforming ClinicianStart: 79-81-4744NRJ of cervical spine without contrastAgustina Benitez EXHIBITION CARVER-C Work Phone: Start: 32-69-0736XqzmcwgourcJfbqggr NILL Start: 03-08-1944JP of chest without contrastNP-C Agustina Benitez Work Phone: Start: 29-05-9220HC of chest without contrastDO Keagan Oro Work Phone: cholecystectomyMichael NILL Plan of Treatment DateCare ActivityDetailAuthorStart: 16-59-4073Amvtmxt [facility] Work Phone: Start: 83-71-3987Nisrwpmtk complement CH50 level [facility] Campustart: 55-22-2853Lhgmbenvt complement CH50 [facility] Centertart: 41-25-6729MvtyrlijpSt. John Of God HospitalComplement C3 [Mass/volume] in Serum or PlasmaSt. John Of God HospitalComplement C4 [Mass/volume] in Serum or PlasmaSt. John Of God HospitalElectromyographySt. John Of God HospitalLupus anticoagulant [Interpretation] in Platelet poor plasmaSt. John Of God HospitalMR Cervical spine WO contrastSt. John Of God HospitalPatient referralMercy Health St. [facility] Work Phone: Thrombin [facility] CampusUS Heart TransthoracicCentinela [facility] Immunizations Immunization DateImmunizationNotesCare BvtzncoiNfhiwdao51-05-8452GTZQ-FoV-5 (COVID-19) mRNA BNT-162b2 vaxMichael NILL [phone]-UywzfCleveland Clinic Medina Hospital General Surgery [place] Comment on above:Result Comment: 2024-07-03: [id number]-VjX-0 (COVID- 19) mRNA BNT-162b2 vaxMichael NILL [phone]-DjlbxCleveland Clinic Medina Hospital General Surgery [place] Comment on above:Result Comment: 2024-07-03: TPV40 Payers DatePayer CategoryPayerPolicy [id number] Health [id number] [id number] 2..1.647572.3.57[id number] ..1.005661.3.57[id number] 2..1.173710.3.57[id number] ..1.416844.3.57[id number] ..1.501104.3.57[id number] ..1.605055.3.57[id number] .1.523625.3.57[id number] 2.0.1.931324.3.579.[id number] 2..840.1.8[id number] 2.0.1.623423.3.579.2.531 [id number] 2.16840.1.5[id number] 2.0.1.6[id number] 2.0.1.973421.3.579.2.531 Social History DateTypeDetailFacilityTobacco smoking status NHISUnknown if ever smokedLake County Memorial Hospital [facility]tr Work Phone: Start: 03-72-0351Hcy Assigned At [facility] Hospitalex Assigned At [facility] Hospitaltart: 81-25-8261Qhsrust smoking status NHISSmoker (finding)[facility] Campustart: 07-22-2023 End: 20-37-3610Sfmfpzr smoking status NHISEx-smoker (finding)[facility] Campustart: 12-23-2023 End: 68-60-9186Wztzjqr smoking status NHISCurrent some day smokerTrinity Health System East Campustart: 06-15-2024 End: 75-40-7702EltFhlt (finding)[facility] Campustart: 08-01-2024 End: 26-93-0722Qppmzrx smoking statusLight tobacco smoker (finding)[facility] systemkTobacco smoking statusNeverSamaritan North Health Center Functional Status LztyZamjvzxyksRwwxpsOtzxjocw85-14-6167Rlqofboxfv StatusN/AFisher-[facility] Crkijsa86-01-2447Rlfwxbdlnr StatusN/AFisher-[facility] [place] Clinical Notes 03-22-2023 to 02-15-2025 Note Date & ExcbTpseAknunqir87-29-9062 Evaluation note* Diagnosis Onset Date Resolution Status Admit Date Numbness and tingling acuteJuly 2024 9:05amOveruse syndromeacuteJuly 2024 9:05amWeakness of right armacuteJuly 2024 9:05amNumbness and tinglingacuteAugust 2024 9:06amOveruse syndromeacuteAugust 2024 9:06amWeakness of right arm acuteAugust 2024 9:06amNumbness and tinglingacuteSeptember 2024 9:03amOveruse syndromeacuteSeptember 2024 9:03amWeakness of right armacute Shayy 2024 9:03am [facility] Work Phone: 1([phone]) 741-617407-02-2025 Evaluation note* Diagnosis Onset Date Resolution Status Admit Date Numbness and tingling acuteJuly 2024 8:33amOveruse syndromeacuteJuly 2024 8:33amWeakness of right armacuteJuly 2024 8:33amNumbness and tinglingacuteJuly 2024 9:05amOveruse syndromeacuteJuly 2024 9:05amWeakness of right armacuteJuly 2024 9:05amNumbness and tinglingacuteAugust 2024 9:06amOveruse syndromeacuteAugust 2024 9:06amWeakness of right armacuteAugust 2024 9:06am [place] Work Phone: 1(120) 487-171805-22-2025 Evaluation note* Diagnosis Onset Date Resolution Status Admit Date Asthma-COPD overlap syndrome acuteMay 2024 8:40amCREST syndromeacuteMay 2024 8:40amOther secondary pulmonary hypertensionacuteMay 2024 8:40amPulmonary cavitary lesionacuteMay 2024 8:40amParesthesia of right upper extremitynoneactive January 24, 2025 8:33am [place] Work Phone: 1([phone]) 561-856505-22-2025 Evaluation note* Diagnosis Onset Date Resolution Status Admit Date Asthma-COPD overlap syndrome acuteMay 2024 8:40amCREST syndromeacuteMay 2024 8:40amOther secondary pulmonary hypertensionacuteMay 2024 8:40amPulmonary cavitary lesionacuteMay 2024 8:40amNumbness and tinglingacuteJuly 2024 8:33am Overuse syndromeacuteJuly 2024 8:33amWeakness of right armacuteJuly 2024 8:33am [place] Work Phone: 1(191) 951-715905-22-2025 Evaluation note* Diagnosis Onset Date Resolution Status Admit Date Asthma-COPD overlap syndrome acuteMay 2024 8:40amCREST syndromeacuteMay 2024 8:40amOther secondary pulmonary hypertensionacuteMay 2024 8:40amPulmonary cavitary lesionacuteMay 2024 8:40amNumbness and tinglingacuteJuly 2024 8:33am Overuse syndromeacuteJuly 2024 8:33amWeakness of right armacuteJuly 2024 8:33amNumbness and tinglingacuteJuly 2024 9:05amOveruse syndromeacute Althea 2024 9:05amWeakness of right armacuteJuly 2024 9:05amNumbness and tinglingacuteAugust 2024 9:06amOveruse syndromeacuteAugust 2024 9:06amWeakness of right armacuteAugust 2024 9:06am [place] Work Phone: 1(807) 741-854805-02-2025 [facility] [place] [id number] Pulmonary Function Signed Patient: Ritchie Thorne MR#: [id number] : 1975 Date of Service:0 11/24/24 Age/Sex: 49 / M ADM Date: 5 Loc: RT Room: Type: [facility] Attending Dr: Enrico Mc DO Copies to: MD Enrico Lawler DO Pamela Sue Cramer, CNP~ Pulmonary Function Test Complete pulmonary function studies were performed on November 24, 2024 for patient with diagnosis of CREST syndrome, centrilobular emphysema. Spirometry was acceptable and reproducible with adequate durations of exhalation. Please refer to the pulmonary function test report for the raw data. SPIROMETRY: Spirometry was performed with bronchodilator studies and reveals an FEV1 to FVC ratio of 71% with an FEV1 of 2.66 liters (64% predicted) and a forced vital capacity of 3.75 liters (70% predicted). After administration of bronchodilators, there was a significant improvement in the FEV1 with an increase of 16% and a significant improvement in the mid and terminal expiratoryflows of 44%. LUNG VOLUMES: Measurement of static lung volumes was performed by plethysmography and indicates a total lung capacity of 6.17 liters (82% predicted) with a residual volume which was 106% of predictedand a residual volume to total lung capacity ratio of 39%. DIFFUSION CAPACITY: Single breath diffusion capacity is 21.2 mL/mmHg/min (68% predicted) and is 98%predicted after adjustment for alveolar volume. SUMMARY: These pulmonary function studies reveal evidence of a moderate obstructive ventilatory defect with evidence of a significant bronchodilator response with residual obstruction being mild. Thestudies would be consistent with asthma with COPD overlap syndrome. There is no clearance of restriction nor is or significant air trapping. Diffusion capacity is mildly reduced but normalizes when adjusted for alveolar volume suggesting some component of ventilation/perfusion mismatching. Comparedto prior studies of December 2023 therehas been marked decline in the expiratory flows with 15% decrease in total lung capacity but with a 5% improvement in the single breath diffusion capacity. Overall compared to prior studies dating as far back as November 2022 there has been a gradual decline in expiratory flows and total lung capacity with in general a trend of declining diffusion capacity overall. Clinical correlation is recommended. Transcribed By: GLEN 11/24/24 1415 Dictated By: Efren Esteves MD 11/24/24 1415 Signed By: 11/24/[address] [facility]01-14-2025 NoteSubjective Patient ID: Bebo Thorne is a 48 [...] and pain. He takes a calcium channel ekta, plavix and asa and has not noticed [...] Venous reflux studies and [facility] up at [facility] No diagnosis found. No orders of the defined types were placed in this encounter. No results found for this or any previous visit (from the past 36 hour(s)). No follow-ups on file.[facility]01-07-2025 NoteGeneral Surgery Office/Clinic Note Chief Complaint consultation for positive occult [...] swallowing difficulties, no hearing loss, no ear infection(s),no nose bleeds. Cardiovascular: normal blood pressure, no [...] mRNA BNT-162b2 vax 04/10/2021 Recorded 2024-07-03: TPV40 [facility] Medical CenterComment on above:Result Comment: Electronically Signed By: JOAQUÍN CHAVEZ, Silvestre Gunderson\Date and Time Signed: 08/01/24 08:41 EST 06-15-2024 Evaluation note* Diagnosis Onset Date Resolution Status Admit Date Calcified lymph nodes acuteNov2023 8:53amCentrilobular emphysemaacuteNov2023 8:53amCigarette nicotine dependence with nicotine-induced disorderacuteNov2023 8:53amCREST syndromeacuteNov2023 8:53amDiastolic dysfunctionacuteNov2023 8:53amOther secondary pulmonary hypertension acuteJune 15, 2024 8:53amPulmonary cavitary lesionacuteNov2023 8:53amRaynaud's disease with gangreneacuteNovember 2023 8:53am [facility] Work Phone: 1(491) 150-595703-26-2024 Progress note Author Jennifer Koenig 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 He follows with rheumatology and has been seen by vascular in [place] and he was told that he his [...] is a chronic condition but if he reduc eshis alcohol intake, continues to not use tobacco, [...] the left 5th finger did fall off onits own, the referral was not made to the hand surgeon but we will consider this again as needed, crosshatching was done on the soft eschar today, has not started any new supplements, 3 week appt, same topical as last visit with the coconut oil 09/23/23 right hand has fissures no open areas, left finger looks stable, changedto honey gel today,no acute infection noted 10/19/23 area has improved, can do a 1 month or more appt, can alternate honey gel and coconut oil, no acute infection noted Subjective Pain Finger: Pain Description: Intermittent Pain Intensity: 4 Wound/Ulcer History When did wound start?: Early May 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 Work Phone: 1(563) 668-317702-29-2024 Progress note Author Jennifer Koenig 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 He follows with rheumatology and has been seen by vascular in [place] and he was told that he his [...] is a chronic condition but if he reduc eshis alcohol intake, continues to not use tobacco, [...] the left 5th finger did fall off onits own, the referral was not made to the hand surgeon but we will consider this again as needed, crosshatching was done on the soft eschar today, has not started any new supplements, 3 week appt, same topical as last visit with the coconut oil 09/23/23 right hand has fissures no open areas, left finger looks stable, changedto honey gel today,no acute infection noted Subjective Pain Finger: Pain Intensity: 0 Wound/Ulcer History When did wound start?: Early May 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 Work Phone: 1(102) 322-125602-08-2024 Progress note Author Jennifer Koenig 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 Results Height: 6 ft Weight: [...] Signed By: <Electronically signed by RITU Koenig> 09/02/[address] [facility] Work Phone: 1(580) 890-565601-18-2024 Progress note Author Jennifer Koenig 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 Work Phone: 1(873) 231-610812-28-2023 Progress note Author Jennifer Koenig 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 Work Phone: 1(922) 968-853112-13-2023 Progress note Author Jennifer Koenig 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 Work Phone: 1(244) 625-784011-28-2023 Progress note Author Jennifer Koenig 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 He follows with rheumatology and has been seen by vascular in [place] and he was told that he his [...] is a chronic condition but if he reduc eshis alcohol intake, continues to not use tobacco, continues to avoid processed and sugary foods, and adopts a lower stress lifestyle with more sleep we should have success. 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 Work Phone: 1([phone]) 276-623011-06-2023 Evaluation note* Encounter Date Diagnosis Assessment Notes Treatment Notes Treatment Clinical Notes May, Chronic obstructive pulmonary disease, unspecified COPD type (ICD- 10 - J44.9) May,Lung nodule (ICD-10 - R91.1)We will continue to follow-up on the lung nodule with a [address], and see him for follow-up after that May,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) May,Tobacco use disorder (ICD-10 - F17.200) [facility] Other 08-28-2023 Evaluation note* Encounter Date Diagnosis Assessment Notes Treatment Notes Treatment Clinical Notes Feb, Chronic obstructive pulmonary disease, unspecified COPD type (ICD- 10 - J44.9) Feb,Lung nodule (ICD-10 - R91.1) Feb,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) Feb,Tobacco use disorder (ICD-10 - F17.200) [place] [employer] Other Evaluation + Plan note No data available for this section [facility] [place] Evaluation noteNo assessment information available [facility] Work Phone: Evaluation note* Diagnosis Onset Date Resolution Status Buergers disease chronicDry gangrenechronicInflammationchronicPainchronicRaynaud diseasechronic Tobacco abuseresolved [facility] Work Phone: Evaluation note* Diagnosis Onset Date Resolution Status Autoimmune disorder acuteTobacco abuseacuteBuergers diseasechronicDry gangrenechronicInflammation chronic [facility] Work Phone: Evaluation note* Diagnosis Onset Date Resolution Status Buergers disease chronicCalcified lymph nodesacuteCentrilobular emphysemaacuteCigarette nicotine dependence with nicotine-induced disorderacuteCREST syndromeacuteOther secondary pulmonary hypertensionacutePulmonary cavitary lesionacuteRaynaud's disease with gangreneacute [place] Work Phone: evaluation note* Diagnosis Onset Date Resolution Status Calcified lymph nodes acuteCentrilobular emphysemaacuteCigarette nicotine dependence with nicotine- induced disorderacuteCREST syndromeacuteDiastolic dysfunctionacuteOther secondary pulmonary hypertensionacutePulmonary cavitary lesionacuteRaynaud's disease with gangreneacute [facility] Work Phone: Evaluation note* Diagnosis Onset Date Resolution Status Calcified lymph nodes acuteCentrilobular emphysemaacuteCigarette nicotine dependence with nicotine- induced disorderacuteCREST syndromeacuteDiastolic dysfunctionacuteOther secondary pulmonary hypertensionacutePulmonary cavitary lesionacuteRaynaud's disease with gangreneacuteCalcified lymph nodesacuteCentrilobular emphysemaacute Cigarette nicotine dependence with nicotine-induced disorderacuteCREST syndrome acuteDiastolic dysfunctionacuteOther secondary pulmonary hypertensionacute Pulmonary cavitary lesionacuteRaynaud's disease with gangreneacute [place] Work Phone: Evaluation note* Diagnosis Onset Date Resolution Status Admit Date Calcified lymph nodes acuteJune 15, 2024 8:53amCentrilobular emphysemaacuteJune 15, 2024 8:53amCigarette nicotine dependence with nicotine-induced disorderacuteJune 15, 2024 8:53amCREST syndromeacuteJune 15, 2024 8:53amDiastolic dysfunction2023 8:53amOther secondary pulmonary hypertension acuteJune 15, 2024 8:53amPulmonary cavitary lesionacuteJune 15, 2024 8:53amRaynaud's disease with gangreneacuteNovember 2023 8:53am [place] Work Phone: History general Narrative - Reported* Type Description Date Medical History hypertension Medical HistoryEsophageal refluxSurgical Historycholecystectomy [facility] Other Hospital Discharge instructions No data available for this section [facility] [place] Progress note No data available for this section [facility] [place] Reason for referral (narrative)No reason for referral information available[place] Work Phone: Summary Purpose Family History No Family History Records Found Relationship Condition Age at Onset Recorded Date/T vida father History of stroke Unknown DeceasedUnknown Advance Directives No Advanced Directives Records Found [...] Complaint and Reason for Visit Chief Complaint Admit Date FILLER SHAKER: 3 mo f/u June 15, 2024 8:53am Unknown August 23, 2024 8 :17am Reason for Visit Admit Date Calcified lymph nodes June 15 8:53am Centrilobular emphysema June 15, 024 8:53am Cigarette nicotine dependenc e with nicotine-induced disorder June 15, 2024 8:53am CREST syndrome June 15, 2024 8:53am Diastolic dysfunction June 15 8:53am Other secondary pulmonary hypertension N ov2023 8:53am Pulmonary cavitary lesion June 15, 2024 8:53am Raynaud's disease with gangrene June 15, 2024 8:53am Chief Complaint r91.1 Chief Complaint r91.1 Bilat Hand Infections Chief Complaint r91.1 Bilat Hand Infections Open Wound J84.10 I27.0 M35.9Reason for VisitBuergers disease Dry gangrene Inflammation Pain Raynaud disease Tobacco abuse Chief Complaint Open Wound Reason for Visit Autoimmune disorder Tobacco abuse Buergers disease Dry gangrene Inflammation Chief Complaint Open Wound MARCELO: Sooner appt per Dr. Coronado's requestReason for VisitBuergers disease Calcified lymph nodes Centrilobular emphysema Cigarette nicotine dependence with nicotine-induced disorder CREST syndrome Other secondary pulmonary hypertension Pulmonary cavitary lesion Raynaud's disease with gangrene Chief Complaint MARCELO: Sooner appt per Dr. Coronado's request I27.29 M34.1 I27.29 M34.1Reason for VisitCalcified lymph nodes Centrilobular emphysema Cigarette nicotine dependence with nicotine-induced disorder CREST syndrome Diastolic dysfunction Other secondary pulmonary hypertension Pulmonary cavitary lesion Raynaud's disease with gangrene Chief Complaint MARCELO: Sooner appt per Dr. Coronado's request I27.29 M34.1 I27.29 M34.1 FILLER SHAKER: 2 mo f/u Pulm HTNReason for VisitCalcified lymph nodes Centrilobular emphysema Cigarette nicotine dependence with nicotine-induced disorder CREST syndrome Diastolic dysfunction Other secondary pulmonary hypertension Pulmonary cavitary lesion Raynaud's disease with gangrene Calcified lymph nodes Centrilobular emphysema Cigarette nicotine dependence with nicotine-induced disorder CREST syndrome Diastolic dysfunction Other secondary pulmonary hypertension Pulmonary cavitary lesion Raynaud's disease with gangrene Chief Complaint FILLER SHAKER: 2 mo f/u Pulm H TN R91.1Reason for VisitCalcified lymph nodes Centrilobular emphysema Cigarette nicotine dependence with nicotine-induced disorder CREST syndrome Diastolic dysfunction Other secondary pulmonary hypertension Pulmonary cavitary lesion Raynaud's disease with gangrene Chief Complaint Admit Date R91.1 April 28, 2024 7: 51am FILLER SHAKER: 3 mo f/u June 15, 2024 8:53am Chief Complaint Admit Date Unknown August 23, 2024 8 :17am M34.1 I73.01 Z79.899 September 19, 2024 8:07am Chief Complaint Admit Date M34.1 I73.01 Z79.899 September 19, 2024 8:07am M34.1 J43.2 November 24, 2024 7:43am M34.1 J43.2 November 24, 2024 2:15pm Chief Complaint Admit Date M34.1 J43.2 November 24, 2024 7:43am M34.1 J43.2 November 24, 2024 2:15pm FILLER SHAKER: 6 mo f/u Pulm HTN, Centrilobular Em physema December 14, 2024 8:40am Reason for Visit Admit Date Asthma-COPD overlap syndrome December 14 8:40am 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 14, 2024 8:40a m Other secondary pulmonary hypertension M ay 2024 8:40am Pulmonary cavitary lesion December 14, 2024 8:40am Paresthesia of right upper extremity Jan 8:33am Chief Complaint Admit Date M34.1 J43.2 November 24, 2024 7:43am M34.1 J43.2 November 24, 2024 2:15pm FILLER SHAKER: 6 mo f/u Pulm HTN, Centrilobular Em physema December 14, 2024 8:40am EMG BUE per ND February 15, 2025 9:05 am Reason for Visit Admit Date Asthma-COPD overlap syndrome December 14 8:40am 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 14, 2024 8:40a m Other secondary pulmonary hypertension M ay 2024 8:40am Pulmonary cavitary lesion December 14, 2024 8:40am Numbness and tingling January 24, 2025 8:3 3am Overuse syndrome January 24, 2025 8:33a m Weakness of right arm January 24, 2025 8:3 3am Chief Complaint Admit Date FILLER SHAKER: 6 mo f/u Pulm HTN, Centrilobular Em physema December 14, 2024 8:40am EMG BUE per ND February 15, 2025 9:05 am weakness R Arm March 07, 2025 7: 00am Follow up after EMG March 07, 2025 9: 06am Reason for Visit Admit Date Asthma-COPD overlap syndrome December 14 025 8:40am 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 14, 2024 8:40a m Other secondary pulmonary hypertension M ay 2024 8:40am Pulmonary cavitary lesion December 14, 2024 8:40am Numbness and tingling January 24, 2025 8:3 3am Overuse syndrome January 24, 2025 8:33a m Weakness of right arm January 24, 2025 8:3 3am Numbness and tingling February 15, 2025 9: 05am Overuse syndrome February 15, 2025 9:05 am Weakness of right arm February 15, 2025 9: 05am Numbness and tingling March 07, 2025 9:06am Overuse syndrome March 07, 2025 9: 06am Weakness of right arm March 07, 2025 9:06am Chief Complaint Admit Date EMG BUE per ND February 15, 2025 9:05 am Follow up after EMG March 07, 2025 9: 06am weakness R Arm March 28, 2025 7:00am f/u per task, wants MRI March 29 025 9:03am Reason for Visit Admit Date Numbness and tingling January 24, 2025 8:3 3am Overuse syndrome January 24, 2025 8:33a m Weakness of right arm January 24, 2025 8:3 3am Numbness and tingling February 15, 2025 9: 05am Overuse syndrome February 15, 2025 9:05 am Weakness of right arm February 15, 2025 9: 05am Numbness and tingling March 07, 2025 9:06am Overuse syndrome March 07, 2025 9: 06am Weakness of right arm March 07, 2025 9:06am Chief Complaint Admit Date EMG BUE per ND February 15, 2025 9:05 am Follow up after EMG March 07, 2025 9: 06am f/u per task, wants MRI March 29 9:03am weakness R Arm April 23, 2025 7:00am Reason for Visit Admit Date Numbness and tingling February 15, 2025 9: 05am Overuse syndrome February 15, 2025 9:05 am Weakness of right arm February 15, 2025 9: 05am Numbness and tingling March 07, 2025 9:06am Overuse syndrome March 07, 2025 9: 06am Weakness of right arm March 07, 2025 9:06am Numbness and tingling March 29 9:03am Overuse syndrome March 29, 2025 9:03am Weakness of right arm March 29 9:03am Chief Complaint Admit Date EMG BUE per ND February 15, 2025 9:05 am Follow up after EMG March 07, 2025 9: 06am f/u per task, wants MRI March 29 9:03am weakness R Arm April 23, 2025 7:00am r20.0 r29.898 r20.2 May 09, 2025 6 :47am Additional Source Comments (unrecognized sect ion and content) No Status Records FoundNo Status Records FoundNo Status Records FoundNo Status Records FoundNo Status Records Found INFORMATION SOURCE (unrecogn ized section and content) DATE CREATED AUTHOR 10/19/2022 [facility] DATE CREATED AUTHOR AUTHOR'S ORGANIZ ATION 01/05/2023 [facility] DATE CREATED AUTHOR AUTHOR'S ORGANIZ ATION 10/14/2024 [facility] DATE CREATED AUTHOR AUTHOR'S ORGANIZ ATION 05/13/2025 [facility] DATE CREATED AUTHOR AUTHOR'S ORGANIZ ATION 06/02/2025 [facility] Care Teams (unrecognized sec tion and content) Team Status: Inactive Member Role Status Dates Johnny Coronado MD Attending Provider Active Team Status: Active Member Role Status Dates Keagan Oro DO Primary Care Provider Active Team Status: Inactive Member Role Status Dates Tony Lieberman MD Attending Provider Active Roosevelt Howard Care ProviderActive Team Status: Active Member Role Status Dates Agustina Benitez NP-Zoey Primary Care Provider Active Team Status: Inactive Member Role Status Dates CHYNA McelroyC Primary Care Provider Active Chante Mccarthy ProviderActive Team Status: Active Member Role Status Dates Keagan Oro DO Primary Care Provider Active Esther Mc ProviderActive Team Status: Inactive Member Role Status Dates Agustina Benitez EXHIBITION CARVER-C Primary Care Provider Active Xavier Camacho ProviderActive Team Status: Inactive Member Role Status Dates Keagan DO Xander Primary Care Provider Active Start: October 19, 2023 End: October 19, 2023Esther Mc ProviderActiveStart: October 19, 2023 End: October 19, 2023 Team Status: Inactive Member Role Status Dates Agustina Benitez EXHIBITION CARVER-C Primary Care Provider Active Start: December 23, 2023 End: December 23, 2023Natelias P Jesusita , DOAttending ProviderActiveStart: December 23, 2023 End: December 23, 2023 Team Status: Inactive Member Role Status Dates Agustina Benitez , EXHIBITION CARVER-C Primary Care Provider Active Start: January 17, 2024 End: January 17, 2024Nathan P Samsa , DOAttending ProviderActiveStart: January 17, 2024 End: January 17, 2024 Team Status: Active Member Role Status Dates Agustina Benitez , EXHIBITION CARVER-C Primary Care Provider Active Start: January 17, 2024 Enrico P Jesusita , DOOther ProviderActiveStart: January 17, 2024 Efren Esteves , MDAttending ProviderActiveStart: January 17, 2024 Team Status: Inactive Member Role Status Dates Agustina Benitez EXHIBITION CARVER-C Primary Care Provider Active Start: February 24, 2024 End: February 24, 2024Nathan P Samsa , DOAttending ProviderActiveStart: February 24, 2024 End: February 24, 2024 Team Status: Inactive Member Role Status Dates Agustina Benitez EXHIBITION CARVER-C Primary Care Provider Active Start: April 28, 2024 End: April 28cheryl Esteves , MDAttending ProviderActiveStart: April 28, 2024 End: April 28, 2024 Team Status: Inactive Member Role Status Dates Agustina Bentiez EXHIBITION CARVER-C Primary Care Provider Active Start: June 15, 2024 End: June 15, 2024Nathan P Samsa , DOAttending ProviderActiveStart: June 15, 2024 End: June 15, 2024 Team Status: Inactive Member Role Status Dates Silvestre Yanes MD FACS Attending Provider Active Start: August 23, 2024 End: August 23, 2024 Team Status: Inactive Member Role Status Dates Jenny Pop EXHIBITION CARVER-C Attending Provider Active Start: September 19, 2024 End: September 19, 2024Agustina Benitez [facility]HIBITION CAR[facility] Care ProviderActive Start: September 19, 2024 End: September 19, 2024 Team Status: Inactive Member Role Status Dates Agustina Benitez , EXHIBITION CARVER-C Primary Care Provider Active Start: November 24, 2024 End: November 24, 2024Enrico Mc , DOAttending ProviderActiveStart: November 24, 2024 End: November 24, 2024 Team Status: Active Member Role Status Dates Agustina Benitez , EXHIBITION CARVER-C Primary Care Provider Active Start: November 24, 2024 Enrico Mc , DOOther ProviderActiveStart: November 24, 2024 Efren Esteves , MDAttending ProviderActiveStart: November 24, 2024 Team Status: Inactive Member Role Status Dates Agustina Benitez , EXHIBITION CARVER-C Primary Care Provider Active Start: December 14, 2024 End: December 14brock Hart MDAttending ProviderActiveStart: December 14, 2024 End: December 14, 2024 Team Status: Inactive Member Role Status Dates Agustina Benitez , EXHIBITION CARVER-C Primary Care Provider Active Start: January 24, 2025 End: January 24, 2025Cherry Pan , DOAttending ProviderActiveStart: January 24, 2025 End: January 24, 2025 Team Status: Inactive Member Role Status Dates Agustina Benitez , EXHIBITION CARVER-C Primary Care Provider Active Start: February 15, 2025 End: February 15, 2025Cherry Pan , DOAttending ProviderActiveStart: February 15, 2025 End: February 15, 2025 Team Status: Active Member Role Status Dates Agustina Benitez , EXHIBITION CARVER-C Primary Care Provider Active Start: March 07, 2025 Cherry Pan DOAttending ProviderActiveStart: March 07, 2025 Team Status: Inactive Member Role Status Dates Agustina Michaela Benitez , EXHIBITION CARVER-C Primary Care Provider Active Start: March 07, 2025 End: March 07martha Livingston APRNAttenmario ProviderActiveStart: March 07, 2025 End: March 07, 2025 Team Status: Active Member Role Status Dates Agustina Benitez , EXHIBITION CARVER-C Primary Care Provider Active Start: March 28, 2025 Cherry Pan DOAttending ProviderActiveStart: March 28, 2025 Team Status: Inactive Member Role Status Dates Agustina Benitez EXHIBITION CARVER-C Primary Care Provider Active Start: March 29, 2025 End: March 29martha Livingston , APRNAttenmario ProviderActiveStart: March 29, 2025 End: March 29, 2025 Team Status: Inactive Member Role Status Dates Agustina Benitez , EXHIBITION CARVER-C Primary Care Provider Active Start: April 23, 2025 End: April 23, 2025Cherry Pan , DOAttending ProviderActiveStart: April 23, 2025 End: April 23, 2025 Team Status: Inactive Member Role Status Dates Agustina Benitez , EXHIBITION CARVER-C Primary Care Provider Active Start: May 09, 2025 End: May 09martha Livingston APRNAtkurtis ProviderActiveStart: May 09, 2025 End: May 09, 2025 Goals (unrecognized section and content) Goals may [...] alternate section No data available for this sectionGoals may be documented in an alternate section No data available for this sectionGoals may be documented in an alternate [...] BE BASED ON THE PRIMARY CLINICAL RECORDS. Dr. TATTOFF. provides no warranty or guarantee of the accuracy or completeness of information in this document.
[2025-06-04 07:33] LABS: Hematocrit 43.5 % (42.0-54.0); Hemoglobin 14.8 g/dL (14.0-18.0); Immature Granulocytes Abs Auto 0.04 10^3/uL (0.00-0.03); Immature Granulocytes Pct Auto 0.4 % (0.0-0.5); Lymphocytes Absolute Auto 2.0 10^3/uL (1.2-3.8); Mean Corpuscular HGB Conc 34.0 g/dL (29.9-35.2); Mean Corpuscular Hemoglobin 33.5 pg (25.9-34.0); Mean Corpuscular Volume 98.4 fL (80.0-94.0); Platelet Count 225 10^3/uL (150-450); Red Blood Count 4.42 10^6/uL (4.70-6.10); White Blood Count 10.8 10^3/uL (4.0-11.0)
[2025-06-04 07:39] LABS: Glucose Urine UA NEGATIVE (NEGATIVE)
[2025-06-04 08:15] LABS: Cast Seen? NONE SEEN #/LPF (NONE SEEN); Crystals Seen? None Seen #/HPF (None Seen)
== END 2025-06-04 07:16 | disposition home or self-care (01) ==
PROVIDERS: PCP Nurse Practitioner Family; Visit Provider Registered Nurse
DX: M34.1 CR(E)ST syndrome (principal); I73.01 Raynaud's syndrome with gangrene; Z79.899 Other long term (current) drug therapy
CPT/HCPCS: 36415; 80053; 81001; 85025; 85652; 86140; 86160; 86162

== ENCOUNTER 2025-06-27 03:01 | Emergency (ER) | payer BC, SELFPAY ==
--- OUTSIDE RECORDS SUMMARY | 2025-06-25 19:57 | XMS_ITS | Continuity of Care Document ---
Author Organization [facility] Address [address] [place] [address] Phone Care Team Providers Care Division Traffic Superintendent Name Role Phone Agustina Andrews DISTILLERY SUPERVISOR-C Primary Care Provider Iris Livingston APRN Attending Provider Cherry Pan DO Attending Provider [phone] Adrián Robertson MD Attending Provider Iris Livingston APRN Referring Provider Julia Jaramillo LPN Attending Provider Unavailable Gary Hart MD Other Provider Efren Esteves MD Attending Provider Care Teams Patient Care Team Team Status: Active Member Role/Relationship Status Dates Agustina Andrews NP-C Primary Care Provider Active Visit Care Team Team Status: Inactive Member Role/Relationship Status Dates Agustina Andrews NP-C Primary Care Provider Active Start: March 29, 2025 End: March 29Esther Correa ProviderActiveStart: March 29, 2025 End: March 29, 2025 Visit Care Team Team Status: Inactive Member Role/Relationship Status Dates Agustina Andrews NP-C Primary Care Provider Active Start: April 23, 2025 End: April 23, 2025Errol Lopez ProviderActiveStart: April 23, 2025 End: April 23, 2025 Visit Care Team Team Status: Inactive Member Role/Relationship Status Dates Agustina Andrews DISTILLERY SUPERVISOR-C Primary Care Provider Active Start: May 09, 2025 End: May 09martha Livingston , Esther ProviderActiveStart: May 09, 2025 End: May 09, 2025 Visit Care Team Team Status: Inactive Member Role/Relationship Status Dates Agustina Andrews DISTILLERY SUPERVISOR-C Primary Care Provider Active Start: June 07, 2025 End: June 07martha Livingston APRNAttenmario ProviderActiveStart: June 07, 2025 End: June 07, 2025 Visit Care Team Team Status: Inactive Member Role/Relationship Status Dates Agustina Andrews DISTILLERY SUPERVISOR-C Primary Care Provider Active Start: June 12, 2025 End: June 12, 2025Adrián Robertson MDAttending ProviderActiveStart: June 12, 2025 End: June 12martha Livingston , APRNReferring ProviderActiveStart: June 12, 2025 End: June 12, 2025 Patient Care Team Team Status: Active Member Role/Relationship Status Dates Agustina Anderws DISTILLERY SUPERVISOR-C Primary Care Provider Active Start: June 18, 2025 Hira Rios ProviderActiveStart: June 18, 2025 Patient Care Team Team Status: Active Member Role/Relationship Status Dates Agustina Andrews , DISTILLERY SUPERVISOR-C Primary Care Provider Active Start: June 25, 2025 Alberto Mcintyre ProviderActiveStart: June 25, 2025 Efren Esteves MDAttending ProviderActiveStart: June 25, 2025 Chief Complaint and Reason for Visit Chief Complaint Admit Date f/u per task, wants MRI March 29 9:03am weakness R Arm April 23, 2025 7:00am r20.0 r29.898 r20.2 May 09, 2025 6 :47am 3 month f/u June 07, 2025 8:11am Ref: Kailee Livingston DISTILLERY SUPERVISOR - Cervicalgia Novembe r 2024 8:20am Amb Documentation June 18, 2025 10:03am J96.01 J44.89 June 25, 2025 7 :49am Reason for Visit Admit Date Numbness and tingling March 29 9:03am Overuse syndrome March 29, 2025 9:03am Weakness of right arm March 29 9:03am Central stenosis of spinal canal Novembe r 2024 8:11am Degenerative disc disease, cervical Nove [facility] 2024 8:11am Neck pain June 07, 2025 8:11am Numbness and tingling June 07 8:11am Weakness of right arm June 07 8:11am Cervical radiculopathy June 12 8:20am Degenerative disc disease, cervical Nove [facility] 2024 8:20am Other chronic pain June 12, 2025 8:20am Reason for Referral Type Reason(s) Provider Provider Contact Information [facility] Address Start Date Degeneration of intervertebral disc of cervical region Central stenosis of spinal canal Neck pain Weakness of right upper extremity Numbness and tingling sensation of skinM50.30 - Other cervical disc degeneration, unspecified cervical region,M48.00 - Spinal stenosis, site unspecified,M54.2 - Cervicalgia,R29.898 - Other symptoms and signs involving the musculoskeletal system,R20.0 - Anesthesia of skin,R20.2 - Paresthesia of skinFPG NeurosurgeryWork Phone: [phone] [address] [address] [address] Allergies, Adverse Reactions, Alerts Allergen Type Severity Reaction Last Updated Verified Status No Known Allergies Allergy Unknown June 12, 2025 8:53amYesActive Social History Smoking Status Status Start Date End Date Date of Observa tion Current some day smoker June 11, 2025 8:24am Observation Status Observation Response Date of Response Legal Sex Male (finding) Sex Assigned At BirthMale[employer] [facility] 1975 Family History Relationship Condition Age at Onset Recorded Date/T vida father History of stroke Unknown DeceasedUnknown Problems Active Problems Problem Diagnosis/Recorded Date Onset Date Status C omments 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 23, 2023 7:52am Unknown Active Interstitial pulmonary disease, unspecifiedMay 2023 12:05pmUnknownActive Cigarette nicotine dependence with nicotine-induced disorderMay 2023 7:53amUnknownActiveNumbness and tinglingJuly 2024 8:24amUnknownActive Raynaud's disease with gangreneMay 2023 12:05pmUnknownActiveOveruse syndromeJuly 2024 8:25amUnknownActiveCentrilobular emphysemaMay 2023 7:52amUnknownActiveCervical radiculopathyNovember 2024 9:08amUnknownActive Buergers diseaseNovember 2022 8:23amUnknownActiveDiastolic dysfunctionMay 2023 11:24amUnknownActiveOther chronic painNovember 2024 9:08am UnknownActiveDegenerative disc disease, cervicalNovember 2024 8:56am UnknownActiveAsthma-COPD overlap syndromeMay 2024 8:17amUnknownActive Calcified lymph nodesMay 2023 7:53amUnknownActiveWeakness of right armJuly 2024 8:25amUnknownActiveOther secondary pulmonary hypertensionMay 2023 7:53amUnknownActiveEchocardiogram:-07/22/2023: RVSP 43mmHg-12/10/2022: RVSP 18mmHgNeck painNovember 2024 8:55amUnknownActiveEsophageal refluxMay 2023 12:05pmUnknownActiveCentral stenosis of spinal canalNovember 2024 8:56amUnknownActivePulmonary cavitary lesionMay 2023 7:53amUnknownActive Inactive/Resolved Problems Problem Diagnosis/Recorded Date Onset Date Status C omments Pain July 07, 2023 7:29am Unknown Resolved Raynaud diseaseNovember 2022 5:16amUnknownResolvedTobacco use disorderMay 2023 12:05pmUnknownResolvedDigital arterial occlusive diseaseNovember 2022 6:31amUnknownResolved Medications Medication Status Dose Units Route Directions Qty Days Refills S tart Date Stop Date End Date Reason(s) Instructions Adherence Albuterol Sulfate 90 mcg/actuation HFA aerosol inhaler Active 2 PUFF INHALATION Every 4 hour s as needed for shortness of breath or wheezing 08 24 11December 27, 2024 12:11pm Centrilobular emphysema Centrilobular emphysemaMay substitute with generic albuterol, ProAir, Proventil, or Ventolin - whichever is covered by insurance or cheaper for the patient. NdemxasKzngoaezdsr-Bmloieuvb-Tcoserfj (Trelegy Ellipta) 200-62.5-25 mcg blister with qyyxnbVburwf5ODMXCETFCFCNFUwdfc4678Lprk 3rd, 2025 11:00pmUnknownVarenicline Tartrate 1 mg fcngzgRghpwdrlhunc7VRRMBgskt ggebs49945Yyow 4th, 2025 1:48pmJuly 2024 7:44amCigarette nicotine dependence with nicotine-induced disorder Nicotine dependence, cigarettes, with unspecified nicotine-induced disorders= Continuing packCholestyramine (With Sugar) 4 gram RfjblpYfvazu4JIZDPvxdn daily June 22, 2023 12:00amadminister w/meal; avoid other meds within 1hr before or 4-6hr after doseUnknownClopidogrel (Plavix) 75 mg VsgorpZiwizs45PHFWZfikx June 22, 2023 12:00amUnknownAtenolol 100 mg PwbqvsCnlocm038SJIMRluyw June 18, 2023 12:00amUnknownSertraline 100 mg comupyTjkmaz034SDXQQnzhc June 18, 2023 12:00amUnknownDoxycycline Monohydrate 100 mg capsule Sflcptvmgxhp816XHKWHinzw dailyJune 18, 2023 12:00amDecember 2022 7:19amX 10 DAYSOmeprazole 20 mg Capsule,Delayed Release(Dr/Ec)Yhpkefvnbgtp69ERLY DailyJune 18, 2023 12:00amMay 2024 7:47amMupirocin 2 % ointment Discontinued0.ROUTE.COMPLEXJune 18, 2023 12:00amNovemb2022 7:59am APPLY TO DISCOLORED AREASNifedipine 60 mg tablet extended othvxanXqvyra28FYHN 2023 12:00amUnknownCefdinir 300 mg ipadrhlYbgphxuxagzo751IC POTwice dailyBlue [facility]2022 12:00amDecember 2022 7:19amVarenicline Tartrate 1 mg qogazmYvzofkfvbtmb4RQVBGkroy dailyBlue Ridge Regional Hospital2022 12:00am June 15, 2024 9:16amAlbuterol Sulfate 90 mcg/actuation HFA aerosol inhaler Ozxuberwlzot5YPMGLBRZOEPNZIMfybl 4 hours as needed for shortness of breath or aqhlltaj63661Xlicrrrg 21st, 2024 12:00amJune 2024 12:12pmCentrilobular emphysema Centrilobular emphysemaMay substitute with generic albuterol, ProAir, Proventil, or Ventolin - whichever is covered by insurance or cheaper for the patient. Varenicline Tartrate 0.5 mg (11)- 1 mg (42) tablets,dose vlxkMpizlqzzdiag6XLzmk package ymhncbmpao959Lropjxho 21st, 2024 12:00amJuly 2024 7:44amCigarette nicotine dependence with nicotine-induced disorder Nicotine dependence, cigarettes, with unspecified nicotine-induced disorders= Starter PackVarenicline Tartrate 1 mg hcghvpFapyznldeiec8VTPBHihmj gemsh99286 June 15, 2024 9:15amJune 2024 1:48pmCigarette nicotine dependence with nicotine-induced disorder Nicotine dependence, cigarettes, with unspecified nicotine-induced disorders= Continuing packAtorvastatin 40 mg qekjiiMpmqfz01RIAVWtwimFfo 21st, 2025 11:00pm UnknownAspirin 81 mg tablet,delayed release (DR/EC)Uqffom60TWNREhqcdWzi 21st, 2025 11:00pmUnknownPantoprazole 40 mg tablet,delayed release (DR/EC)Xthnea92VQFW dailyDecember 13, 2024 11:00pmUnknownTramadol 50 mg xohuphGnkhximqcgyz13LHEMAoibj 8 hours as neededDecember 13, 2024 11:00pmJuly 2024 7:45amNifedipine 90 mg tablet extended gumezuxWttffrkouiwq96VSPTAjdqWlo 21st, 2025 11:00pmJuly 2024 7:45amGabapentin (Neurontin) 100 mg zuvcjirSxibqtmrydib508BDTZ.JEXZHHW275 January 23, 2025 11:00pmAugust 2024 8:45rj332 mg orally 1 po q am and 2 po q hs;Tizanidine (Zanaflex) 4 mg iijylaCbcfgd4VDLtwjw at bedtime as needed for muscle pcvbwnimlo242Fthlyrve 13th, 2025 12:00amTake 1/2-1 tab po at bedtime orally daily at bedtime PRN;Unknown Procedures Procedure Date Performed Status MR cervical spine wo con May 09, 2025 5:51 am completed Relevant Diagnostic Tests and/or Laboratory Data Laboratory Results Test Collection Date/Time Result Date/Time Result Interpretation Reference Range Result Comment Performing Site Urine Amphetamines Screen June 12, 2025 10:02am June 18, 2025 10:03am Negative Urine Barbitur[facility]2024 10:02amNovember 2024 10:03am NegativeUrine Benzodiazepines [facility]2024 10:02amNovember 2024 10:03amNegativeUrine [facility]aine [facility] 10:02amNovember 2024 10:03amNegativeUrine Opiates [facility]2024 10:02am June 18, 2025 10:03amNegativeUrine Phencyclidine [facility] 2024 10:02amNovember 2024 10:03amNegativeUrine Marijuana (THC) [facility]2024 10:02amNoveer 2024 10:03amNegative Diagnostic Imaging Reports Author Jayson Pettit [facility] SouthAuthoredOctlake [facility] 2024 10:22amReport Dictated Date/TimeDictated ByStatusRadiology ReportOctober 2024 10:22am Alyse LainezPremier Health [facility] Main [address] [address] MRI Report Signed Patient: Ritchie Blair MR#: [id number] : 1975 Acct:[id number] Age/Sex: 49 / M ADM Date: 5 [facility] Type: REG CLI Attending Dr: Iris Livingston APRN Copies to: [...] intervertebral space narrowing C5-C6 with associated predominantly Mo dic 2 endplate changes. Superior plate Schmorl's node at C7. There is mild motion on the axial images degrading evaluation of the degenerative changes. Prevertebral and paraspinal soft tissues otherwise unremarkable. C2-3: Facet arthropathy. No significant disc disease, canal or neural foraminal narrowing identified. C4-C5: Broad-based disc bulge with right greater than left uncovertebral s purring causing moderate severe right moderate left neural [...] causing moderate severe neural foraminal narrowing and buko-rj-lqfahmgy central stenosis. C7-T1: Uncovertebral spurring and facet [...] Pettit M.D. 05/09/2025 10:34 AM Dictation Location: [facility] Transcribed By: EVELYN 05/09/25 1034 Dictated By: Jayson Pettit MD 05/09/25 1022 Signed By: <Electronically signed by Jayson Pettti MD in OV> 05/09/25 1034 Vital Signs Vital Reading Result Reference Range Collection Date/Time Height 72 [in_i] March 29, 2025 8:92hyOqnngw80.97 kgSeptember 2024 8:14amHeart Rate79 /xqs85-580Xeuttyyyh 2024 8:14amRespiratory rate20 /owo31-38Owudtehru 2024 8:14amBP Jcuqosvx441 mm[Hg]100-140September 2024 8:14amBP Rzdlebljd34 mm[Hg]60-100September 2024 8:14amBMI (Body Mass Index)29.2 kg/d4Cmmchfyza2024 8:75ehNxrzsv43 [in_i]June 07, 2025 8:33kyKjamil16.42 kgNovember 2024 8:24amHeart Rate79 /dsw66-024Mgesswzk 2024 8:24amBP Nwpqhyqr983 mm[Hg]100-140November 2024 8:24amBP Skeycymlf55 mm[Hg]60-100November 2024 8:24amBMI (Body Mass Index)29.4 kg/x2Tjwatima2024 8:24amHeart Rate74 /rox33-711Hcjqjdum 18th, 2025 8:56am Advance Directives Advance Directive Response Recorded Date/ Time Advance Directives No May 8:24am Insurance Providers Guarantor Ritchie Blair Address [address] [place] [id number] Info.Home Phone: Coverage Status Update:2024 Payer Group Member ID Coverage Type Subscriber Relationship to Subscriber Effective Date Expiration Date Carolyn MILES Id: [id number] J Litten Id: [id number] [address] [address] Home Phone: Email: [email or web address] Encounters Encounter Location(s) Arrival/Admit Date Discharge/Departure Date Discharge/Departure Disposition Provider(s) Departed Physician/ Provider Office Visit -[facility] Neurology [place] March 29, 2025 9:03am March 29, 2025 9:49am Discharged to home care or self care (routine discharge) Cal Beck APRN Discharged Recurring -Physical Therapy [place] April 23, 2025 7:00am April 23, 2025 6:00pm Discharged to home care or self care (routine discharge) Cherry Pan DO Departed Clinical -[facility] [address] Closed May 09, 2025 6:47am May 09, 2025 6:48am Discharged to home care or self care (routine discharge) Cal Beck APRN Departed Physician/ Provider Office Visit -[facility] Neurology June 07, 2025 8:11am June 07, 2025 8:52am Discharged to home care or self care (routine discharge) Cal Beck APRN Departed Physician/ Provider Office Visit -[facility] Pain [facility] June 12, 2025 8:20am June 12, 2025 9:16am Discharged to home care or self care (routine discharge) Adrián Robertson MD Non-patient / Non-visit -[facility] Pain [facility] No vember 2024 10:03am Julia ConwayholcombNon-patient / Hyj-diwvn-Defmajjfn Health PulmonaryDeceer 2024 7:49amEfren Esteves MD Recent Diagnosis Onset Date Admit Date Numbness and tingling Unknown March 29, 2025 9:03am Overuse syndrome Unknown March 29, 2025 9:03am Weakness of right arm Unknown March 29, 2025 9:03am Central stenosis of spinal canal Unknown June 07, 2025 8:11am Degenerative disc disease, cervical Unknown June 07, 2025 8:11am Neck pain Unknown June 07, 2 025 8:11am Numbness and tingling Unknown May 262024 8:11am Weakness of right arm Unknown May 262024 8:11am Cervical radiculopathy Unknown June 12, 2025 8:20am Degenerative disc disease, cervical Unknown June 12, 2025 8:20am Other chronic pain Unknown May 8:20am Assessments Diagnosis Onset Date Resolution Status Admit Date Numbness and tingling acuteSeptember 2024 9:03amOveruse syndromeacuteSeptember 2024 9:03am Weakness of right armacuteSept2024 9:03amCentral stenosis of spinal canalacuteNovember 2024 8:11amDegenerative disc disease, cervicalacute June 07, 2025 8:11amNeck painacuteNovember 2024 8:11amNumbness and tinglingacuteNovember 2024 8:11amWeakness of right armacuteNovember 2024 8:11amCervical radiculopathyacuteNovember 2024 8:20amDegenerative disc disease, cervicalacuteNov2024 8:20amOther chronic painacute June 12, 2025 8:20am Plan of Treatment Author Julia [facility] HospitalAutredNov2024 9:11am49 year old male presents with complaints of neck pain with numbness/tingling down right arm to the fingertips. He states pain has been present for 6-8 months and is intermittent in nature. He denies any known inciting trauma. He also complains of weakness to the right upper extremity. He has tried ice, heat and resting which he feels provides some element of relief. He notes he recently completed physical therapy 1 month ago, which he feels provided some element of improvement in ROM. He has tried taking OTC ibuprofen and Tylenol with minimal relief and was recently prescribed Tizanidine which he has not picked up from the pharmacy yet. He denies any prior surgery, after school caregiver or massage therapy. He feels pain is negatively impacting his daily activities and sleeping pattern. Prior to examining the patient, I independently reviewed office notes from referring provider, Iris Livingston. Pertinent imaging of the cervical spine were reviewed and discussed in detail with the patient which showed disc bulges causing moderate narrowing of the spinal canal. History, physical examination and available images are consistent with cervical radiculopathy and cervical degenerative disc disease. Anatomy of spine as well as other treatment options were discussed in detail with the patient in regards to patients condition. I recommend we proceed with a cervical epidural steroid injection under fluoroscopic guidance. Risks and benefits of procedure explained to patient; patient verbalizes understanding. Continue with current treatment plan. Follow up after procedure. Author Iris Livingston [facility] SouthAuthoredBaptist Health [facility] 2024 8:57amEMG BUE 01/2025 is normal. . . 49-year-old male who is having numbness and tingling primarily in his right upper extremity that started about 9 months ago but it then radiated to his left upper extremity some. Left UE has improved. He has some subjective weakness but no measurable deficits. He has no measurable sensory loss on exam. In the room he had leaned on his forearms and states that exacerbates the problem. He is would be leaning on the ulnar nerve however he states the sensation encompasses the entire hand and arm all the way up. EMG normal. He at first was not having any neck pain, only a little tightness on the right side and not overly bothersome. His left side is now symptom free and the right it progressively worsening. He is now having pain in his neck and reports weakness in his right hand and can drop items. 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 He does not ever rest his arm. PT has given 30-40% benefit at most. He has went to 9 sessions. He does admit that he is not keeping up with the HEP. It does benefit him some with ROM. Cervical MRI 05/09/2025 reveals multilevel degenerative changes predominantly right sided C4-C7 most severe at C5-C6, moderate central canal stenosis C5-C6, multiple levels of disc bulge, several levels mild central canal stenosis, moderate to severe neuroforaminal narrowing at several levels right and/or left side, mild edema along the longus colli muscles noted may raise possibility for tendinitis of the longus colli muscles. This is affecting his sleep. We will start him on Zanaflex prn. Also going to send him to pain mgt and neurosurgery for evaluation. I do not want him to have any permanent damage and symptoms are progressing. . . . Plan I will obtain an MRI of the cervical spine to assess for a structural lesion including degenerative cervical spine disease which may be contributing to the patient's symptoms-[place] He may call in for results as we may not be able to have a 2 month f/u. Continue with PT and HEP on days off If he finds anything that triggers that do not do that such as leaning on his forearms The diagnosis was all discussed with the patient.?? All questions were answered and they agreed with the treatment plan.?? Patient will call if there are any new issues or questions. Author Iris Livingston [facility] SouthAuthoredSeptember 2024 8:99ep11-mvzk-pcg male who is having numbness and tingling primarily in his right upper extremity that started about 9 months ago but it then radiated to his left upper extremity some. Left UE has improved. He has some subjective weakness but no measurable deficits. He has no measurable sensory loss on exam. In the room he had leaned on his forearms and states that exacerbates the problem. He is would be leaning on the ulnar nerve however he states the sensation encompasses the entire hand and arm all the way up. EMG normal. He denies any neck pain, a little tightness on the right side, not overly bothersome. 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 PT has given 30-40% benefit at most. He has went to 9 sessions. We will order cervical MRI as this is continuing. If MRI is unremarkable his right shoulder may be the cause and worked up and this was discussed. EMG BUE 01/2025 is normal. He was sent to PT between visits. He has his first visits yesterday and today. We will see what this does for him and then see him back. . . . Plan I will obtain an MRI of the cervical spine to assess for a structural lesion including degenerative cervical spine disease which may be contributing to the patient's symptoms-[place] He may call in for results as we may not be able to have a 2 month f/u. Continue with PT and HEP on days off If he finds anything that triggers that do not do that such as leaning on his forearms The diagnosis was all discussed with the patient.?? All questions were answered and they agreed with the treatment plan.?? Patient will call if there are any new issues or questions. Future Tests Future scheduled test information is unavailable Pending Tests Test Name Ordered Date Scheduled Date MR cervical spine wo con March 29, 2025 9:1 3am Future Visits Future appointment information is unavailable Future Procedures Future procedure information is unavailable Future Medications Future medication information is unavailable Patient Instructions Patient instructions are unavailable
[2025-06-27 03:04] VITALS: BP 118/72; PULSE 96; TEMP 36.5; BMI 29.2
--- NOTE | 2025-06-27 03:22 | XR_ITS ---
The [address] [address] Patient Name: RICKY THORNE MRN: [id number] date: 1975 Sex: M Assigned Patient Location: ER Current Patient Location: Accession/Order Number: [id number] Exam Date: 06/27/2025 03:34 Report Date: 06/27/2025 07:54 At the request of: SHERRI LAUREN MD Procedure: XR ankle LT min 3V LEFT ANKLE - 3 views CLINICAL DATA: Left ankle pain for the past couple days, without injury COMPARISON: None AP, lateral and oblique views were obtained. There is no acute fracture or dislocation. The talar dome is intact. There is minor spurring at the tip of the medial malleolus and dorsum of the talus. Anterolateral soft tissue swelling is seen. XR/XR ankle LT min 3V IMPRESSION: NO ACUTE BONY FINDINGS. Impression dictated by: Margret De La Fuente M.D. 06/27/2025 7:54 AM Dictation Location: [place] [address] Electronically authenticated by: [id number] Date: 06/27/2025 07:54
--- NOTE | 2025-06-27 03:22 | ED.EXTPRO1 ---
HPI - Extremity Problem General Chief complaint: Extremity Problem, Nontraumatic Stated complaint: Injured ankle Left Time Seen by Provider: 06/27/25 03:19 Source: patient Mode of arrival: walk-in History of Present Illness HPI Narrative: left ankle pain for 2 days. no injury. left work tonight as he has increased pain when trying to walk or stand. No fever. Denies similar episoes. Related Data Home Medications ?Medication ?Instructions ?Recorded ?Confirmed aspirin 81 mg tablet,delayed 81 mg PO DAILY 07/05/23 08/23/24 release atenolol 100 mg tablet 100 mg PO DAILY 07/05/23 08/23/24 atorvastatin 40 mg tablet 40 mg PO BEDTIME 07/05/23 08/23/24 clopidogrel 75 mg tablet 75 mg PO DAILY 07/05/23 08/23/24 nifedipine 90 mg tablet,extended 90 mg PO DAILY 07/05/23 08/23/24 release oxycodone 5 mg tablet 5 mg PO Q12H 07/05/23 08/23/24 sertraline 100 mg tablet 150 mg PO Q24H 07/05/23 08/23/24 sildenafil (pulm.hypertension) 20 20 mg PO Q24H 07/05/23 08/16/24 mg tablet tramadol 50 mg tablet 50 mg PO Q12H 07/05/23 08/23/24 varenicline tartrate 1 mg tablet 1 mg PO BID 07/05/23 08/23/24 Allergies Allergy/AdvReac Type Severity Reaction Status Date / Time No Known Drug Allergies Allergy Verified 06/27/25 03:08 Review of Systems ROS Status of ROS 10 or more systems reviewed and unremarkable except as noted in history and below PFSH PFSH Medical History Chronic obstructive pulmonary disease ?J44.9 - Chronic obstructive pulmonary disease, unspecified (ICD-10) Seasonal allergies ?J30.2 - Other seasonal allergic rhinitis (ICD-10) Diarrhea ?R19.7 - Diarrhea, unspecified (ICD-10) Raynauds phenomenon ?I73.00 - Raynaud's syndrome without gangrene (ICD-10) Pulmonary hypertension ?I27.20 - Pulmonary hypertension, unspecified (ICD-10) Hypertriglyceridemia ?E78.1 - Pure hyperglyceridemia (ICD-10) Emphysema lung ?J43.9 - Emphysema, unspecified (ICD-10) Calcinosis, Raynaud phenomenon, esophageal dysfunction, sclerodactyly, 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 (ICD-10) BMI 29.0-29.9,adult ?Z68.29 - Body mass index [BMI] 29.0-29.9, adult (ICD-10) AA (alcohol abuse) ?F10.10 - Alcohol abuse, uncomplicated (ICD-10) Surgical History (Updated 08/16/24 @ 08:44 by Nancy Stevenson) History of cholecystectomy ?Z90.49 - Acquired absence of other specified parts of digestive tract (ICD-10) Family History (Updated 08/16/24 @ 08:40 by Nancy Stevenson) Other Family history of cancer Family history of coronary artery disease Family history of hypertension Family history of lung cancer Family history of myocardial infarction Social History (Updated 08/16/24 @ 08:37 by Nancy Stevenson) Within the past year, how often did you have a drink containing alcohol: 2-3 times a week Smoking status: Current every day smoker Non-prescribed substance use: denies use 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 Highest level of school completed/degree received: high school graduate Little interest or pleasure in doing things: not at all Feeling down, depressed, or hopeless: not at all Exam Constitutional Vital Signs, click to edit/add: Last Vital Signs Temp 97.7 F 06/27/25 03:04 Pulse 96 H 06/27/25 03:04 Resp 18 06/27/25 03:04 BP 118/72 06/27/25 03:04 Pulse Ox 94 L 06/27/25 04:00 O2 Del Method Room Air 06/27/25 03:04 Common normals: no apparent distress, average body habitus, oriented x3, no limitations, healthy appearing, alert and well nourished [facility] Common normals: normocephalic and head/scalp atraumatic Eye Common normals: EOMs intact bilaterally and conjunctivae normal Respiratory Common normals: normal respiratory effort, no retractions, no use of accessory muscles and clear to auscultation bilaterally Cardio Common normals: regular rate, regular rhythm, S1 normal heart sound and S2 normal heart sound Extremity Other: swelling and tenderness left ankle. No erythema Neuro Common normals: oriented x3, CN's II-XII intact bilaterally, moves all extremities and no focal motor deficits Psych Appearance: grossly normal Course Vital Signs Vital signs: Vital Signs Temperature 97.7 F 06/27/25 03:04 Pulse Rate 96 H 06/27/25 03:04 Respiratory Rate 18 06/27/25 03:04 Blood Pressure 118/72 06/27/25 03:04 Oxygen Delivery Method Room Air 06/27/25 03:04 Temperature 97.7 F 06/27/25 03:04 Pulse Rate 96 H 06/27/25 03:04 Respiratory Rate 18 06/27/25 03:04 Blood Pressure 118/72 06/27/25 03:04 Pulse Oximetry 94 L 06/27/25 04:00 Oxygen Delivery Method Room Air 06/27/25 03:04 MDM - Extremity (Nontraumatic) MDM Narrative Medical decision making narrative: presents with acute nontraumatic swelling and pain of his left ankle. labs with elevated sed rate, CRP and uric acid level. xray left ankle per my preliminary review is neg for acute findings. Patient informed of working diagnosis of gout and discharged home with prescription for Prednisone. He is not candidate for NSAIDS as he takes plavix. He is to follow up with his doctor next couple of days for recheck Lab Data Labs: Lab Results 06/27/25 Range/Units 03:40 WBC 10.5 (4.0-11.0) 10^3/uL RBC 4.15 L (4.70-6.10) 10^6/uL Hgb 13.7 L (14.0-18.0) g/dL Hct 41.1 L (42.0-54.0) % MCV 99.0 H (80.0-94.0) fL MCH 33.0 (25.9-34.0) pg MCHC 33.3 (29.9-35.2) g/dL RDW 14.0 (11.0-15.0) % Plt Count 206 (150-450) 10^3/uL MPV 10.3 (9.5-13.5) fL Neut % (Auto) 73.5 (43.0-75.0) % Lymph % (Auto) 11.5 L (20.5-60.0) % [place] % (Auto) 11.6 (1.7-12.0) % Eos % (Auto) 0.4 L (0.9-7.0) % Baso % (Auto) 0.8 (0.2-2.0) % Neut # (Auto) 7.8 H (1.4-6.5) 10^3/uL Lymph # (Auto) 1.2 (1.2-3.8) 10^3/uL [place] # (Auto) 1.2 H (0.3-0.8) 10^3/uL Eos # (Auto) 0.0 (0.0-0.7) 10^3/uL Baso # (Auto) 0.1 (0.0-0.1) 10^3/uL Abs Immat Gran (auto) 0.23 H (0.00-0.03) 10^3/uL Imm/Tot Granulo (auto) 2.2 H (0.0-0.5) % ESR 110 H (<=20) mm/hr Sodium 138 (136-145) mmol/L Potassium 3.8 (3.5-5.1) mmol/L Chloride 104 (98-107) mmol/L Carbon Dioxide 24.9 (21.0-32.0) mmol/L Anion Gap 12.9 BUN 13.0 (7.0-18.0) mg/dL Creatinine 1.42 H (0.70-1.30) mg/dL Est GFR ( Amer) >60 (>=60 mL/min/1.73m^2) Est GFR (Non-Af Amer) 53 L (>=60 mL/min/1.73m^2) BUN/Creatinine Ratio 9.2 Glucose 126 H (74-106) mg/dL Uric Acid 7.7 H (3.5-7.2) mg/dL Calcium 9.2 (8.5-10.1) mg/dL C-Reactive Protein 16.03 H (<=0.50) mg/dL Discharge Plan Discharge Chief Complaint: Extremity Problem, Nontraumatic Clinical Impression: Gout Patient Disposition: Home, Self-Care Prescriptions / Home Meds: No Action aspirin 81 mg tablet,delayed release (DR/EC) 81 mg PO DAILY atenolol 100 mg tablet 100 mg PO DAILY atorvastatin 40 mg tablet 40 mg PO BEDTIME clopidogrel 75 mg tablet 75 mg PO DAILY oxycodone 5 mg tablet 5 mg PO Q12H sertraline 100 mg tablet 150 mg PO Q24H sildenafil (pulm.hypertension) 20 mg tablet 20 mg PO Q24H tramadol 50 mg tablet 50 mg PO Q12H varenicline tartrate 1 mg tablet 1 mg PO BID nifedipine 90 mg tablet extended release 90 mg PO DAILY Print Language: [place] Instructions: Gout (ED) Additional Instructions: follow up with your doctor couple of days for recheck Referrals: MARY BENITEZ [Primary Care Provider, Family Practice] - 1 week
[2025-06-27] MEDS: METHYLPREDNISOLONE SOD SUCC PF 125 MG/2 ML VIAL IVP (03:44)
[2025-06-27 03:50] LABS: Hematocrit 41.1 % (42.0-54.0); Hemoglobin 13.7 g/dL (14.0-18.0); Immature Granulocytes Abs Auto 0.23 10^3/uL (0.00-0.03); Immature Granulocytes Pct Auto 2.2 % (0.0-0.5); Lymphocytes Absolute Auto 1.2 10^3/uL (1.2-3.8); Mean Corpuscular HGB Conc 33.3 g/dL (29.9-35.2); Mean Corpuscular Hemoglobin 33.0 pg (25.9-34.0); Mean Corpuscular Volume 99.0 fL (80.0-94.0); Platelet Count 206 10^3/uL (150-450); Red Blood Count 4.15 10^6/uL (4.70-6.10); White Blood Count 10.5 10^3/uL (4.0-11.0)
--- OUTSIDE RECORDS SUMMARY | 2025-06-27 03:53 | XMS_ITS | CCD ---
Author Organization [facility] Providers Care Graphic Arts Instructor Name Role Phone HOUSE, DR CROOKS Consulting [...] DR CROOKS Admitting Unavailable HOY ., DR VINCETN Primary Care Unavailable HOUSE, DR CROOKS Attending Unavailable MD Johnny Coronado Attending Provider Tony Lieberman Unavailable MD Tony Lieberman Attending Provider [phone] DO Keagan Oro Primary Care Provider MD Tony Lieberman Attending Provider [phone] DO Keagan Oro Primary Care Provider KAVYA Benitez Primary Care Provider DO Bryon Moffett Emergency Provider [phone] RITU Koenig Attending Provider [phone] MD Williams Coronado Attending Provider DO Keagan Oro Primary Care Provider [phone] RITU Koenig Attending Provider [phone] KAVYA Benitez Primary Care Provider DO Enrico Mc Attending Provider [phone] Emmanuel, PHARMACY DISTRICT MANAGER-C Agustina Michaela Primary Care Provider [phone] MD Efren Esteves Attending Provider Emmanuel PHARMACY DISTRICT MANAGER-C, Agustina Michaela Primary Care Provider [phone] Efren Esteves MD Attending Provider AGUSTINA BENITEZ Primary Care Physician Silvestre Yanes MD Attending Provider [place] PHARMACY DISTRICT MANAGER-C, Jenny Hinojosa Attending Provider Emmanuel PHARMACY DISTRICT MANAGER-C, Agustina Michaela Primary Care Provider Silvestre YANES Attending Unavailable AGUSTINA BENITEZ S Referring Unavailable Silvestre YANES Attending Unavailable Silvestre YANES Attending Unavailable [place] PHARMACY DISTRICT MANAGER-C, Jenny Hinojosa Attending Provider Emmanuel PHARMACY DISTRICT MANAGER-C, Agustina Michaela Primary Care Provider [phone] Enrico Mc DO Attending Provider Emmanuel PHARMACY DISTRICT MANAGER-C, Agustina Michaela Primary Care Provider Enrico Mc DO Other Provider [phone] Efren Esteves MD Attending Provider Gary Hart MD Attending Provider Cherry Pan DO Attending Provider [place] PHARMACY DISTRICT MANAGER-C, Agustina Michaela Primary Care Provider Iris Livingston APRN Attending Provider Emmanuel PHARMACY DISTRICT MANAGER-C, Agustina Michaela Primary Care Provider [phone] Emmanuel PHARMACY DISTRICT MANAGER-C, Agustina Michaela Primary Care Provider [phone] Cherry Pan DO Attending Provider [phone] Cherry Pan Admitting Unavailable Cherry Pan Attending [...] [No Known Medication Allergies]Propensity to adverse reactions (disorder)[facility] Medications Current Medications MedicationDrug Class(es)DatesSig (Normalized)Sig (Original)[id number] 200 actuat albuterol 0.09 mg/actuat metered dose inhaler (17 sources)beta2-Adrenergic AgonistStart: 06-15-2024 End: 29-20-2936jjyv 1 puff(s) by inhalation every four hours as needed for wheezingaspirin 81 mg delayed release oral tablet (9 sources)Platelet Aggregation Inhibitor, Nonsteroidal Anti-inflammatory Drug Start: 15-18-0945adqr 1 tablet by mouth once dailyStart: 16-57-5492aqqi 1 tablet by mouth once dailyaspirin 81 mg Oral EC Tab 81 mg = 1 tab(s), Oral, Daily, Refills(s) 0 Start Date: 07/03/24 Status: Orderedatenolol 100 mg oral tablet (20 sources)beta-Adrenergic BlockerStart: 49-33-4726lnpu 1 tablet by mouth once dailyatenolol 100 mg Tab 100 mg = 1 tab(s), Oral, Daily, Refills(s) 0 Start Date: 07/03/24 Status: OrderedStart: 57-93-2441Zfapp: 37-36-8319vaep 150 mg by mouth once dailyAtenolol Active 150 MG PO Daily June 18, 2023 1:00amStart: 08-74-7972dbhy 100 mg by mouth once dailyAtenolol Active 100 MG PO Daily June 18, 2023 12:00amtake 1 tablet by mouth every twenty-four hours Atenolol 100 MG 1 tablet Orally Once a day Activeatorvastatin 40 mg oral tablet (9 sources)HMG-CoA Reductase InhibitorStart: 91-79-3102qkjw 1 tablet by mouth once dailyStart: 20-17-7176cord 1 tablet by mouth once dailyatorvastatin 40 mg Tab 40 mg = 1 tab(s), Oral, Daily, Refills(s) 0 Start Date: 07/03/24 Status: Orderedcholestyramine resin 4000 mg powder for oral suspension (17 sources)Bile Acid SequestrantStart: 27-58-9623efty 1 dose by mouth twice dailyclopidogrel 75 mg oral tablet (19 sources)P2Y12 Platelet InhibitorStart: 47-81-7778wgaj 1 tablet by mouth once ymchmZlpgixjacwd-Llkrwvogq-Exdhgfhx (6 sources)Start: 88-35-4479Cjtuj: 17-41-2182Hpvhyjboofc-Umeclidin-Vilanter (Trelegy Ellipta) 200-62.5-25 mcg blister with device Active 1 INH INHALATION Daily December 27, 2024 12:00am Complies with drug therapypantoprazole 40 mg delayed release oral tablet (9 sources)Proton Pump InhibitorStart: 68-39-3684abcy 1 tablet by mouth once dailyStart: 44-21-3191iuxv 1 tablet by mouth once dailyPantoprazole [address] Tab 40 mg = 1 tab(s), Oral, Daily, Refills(s) 0 Start Date: 07/03/24 Status: Ordered sertraline 50 mg oral tablet (20 sources)Serotonin Reuptake InhibitorStart: 51-37-7077wksr 3 tablets by mouth once dailyZoloft 50 mg Tab 150 mg = 3 tab(s), Oral, Daily, Refills(s) 0 Start Date: 07/03/24 Status: OrderedStart: 25-53-9047iifh 1 tablet by mouth once daily take 1 tablet by mouth every twenty-four hoursSertraline HCl 100 MG 1 tablet Orally Once a day ActiveVarenicline 0.5 mg (11)- 1 mg (42) tablets,dose pack (1 source)Start: 41-78-9959iess 1 tablet by mouth onceVarenicline 0.5 mg (11)- 1 mg (42) tablets,dose pack Active 0 PO per package directions 53 2023 12:00am = Starter PackVarenicline Tartrate 0.5 mg (11)- 1 mg (42) tablets,dose pack (4 sources)Start: 96-15-3885uyzq 1 tablet by mouth onceVarenicline Tartrate 0.5 mg (11)- 1 mg (42) tablets,dose pack Active 0 PO per package directions 53 June 15, 2024 1:00am = Starter PackStart: 50-49-3785pvjw 1 tablet by mouth onceVarenicline Tartrate 0.5 mg (11)- 1 mg (42) tablets,dose pack Active 0 PO per package directions 53June 15, 2024 12:00am = Starter Pack Completed/Discontinued Medications MedicationDrug Class(es)DatesSig (Normalized)Sig (Original)cefdinir 300 mg oral capsule (18 sources)Cephalosporin AntibacterialStart: 06-18-2023 End: 06-43-4366qpsp 1 capsule by mouth twice dailyCefdinir 300 mg capsule Discontinued 300 MG PO Twice daily June 18, 2023 1:00am July 07, 2023 8:19amdoxycycline monohydrate 100 mg oral capsule (18 sources)Tetracycline-class DrugStart: 06-18-2023 End: 49-16-3183reqv 1 capsule by mouth twice dailyDoxycycline Monohydrate 100 mg capsule Discontinued 100 MG PO Twice daily June 18, 2023 1:00am July 07, 2023 8:19am X 10 DAYSgabapentin 100 mg oral capsule (6 sources)Anti-epileptic AgentStart: 01-24-2025 End: 93-06-7522rvhh 2 capsules by mouth once at bedtimeGabapentin (Neurontin) 100 mg capsule Discontinued 100 MG PO .COMPLEX January 24, 2025 12:00am March 07, 2025 9:29am 100 mg orally 1 po q am and 2 po q hs;mupirocin 0.02 mg/mg topical ointment (18 sources)RNA Synthetase Inhibitor AntibacterialStart: 06-18-2023 End: 30-74-3542Hzvxuamov 2 % ointment Discontinued 0 .ROUTE .COMPLEX June 18, 2023 1:00am June 22, 2023 8:59am APPLY TO DISCOLORED AREASStart: 06-18-2023 End: 89-59-4173Lryhcnczp Discontinued 0 .ROUTE .COMPLEX June 18, 2023 1:00am June 22, 2023 8:59am APPLY TO DISCOLORED AREAS24 hr NIFEdipine 90 mg extended release oral tablet (20 sources)Dihydropyridine Calcium Channel BlockerStart: 12-14-2024 End: 23-59-2151wswc 1 tablet by mouth onceNifedipine 90 mg tablet extended release Discontinued 90 MG PO Once December 14, 2024 12:00am January 24, 2025 8:45am Start: 22-46-4208wsfc 1 tablet by mouth once dailyNIFEdipine 60 mg ER Tab 60 mg = 1 tab(s), Oral, Daily, Refills(s) 0 Start Date: 07/03/24 Status: OrderedStart: 03-33-1370knfe 1 tablet by mouth once dailytake 1 tablet by mouth every twenty- four hoursNIFEdipine ER 60 MG 1 tablet on an empty stomach Orally Once a day Activeomeprazole 20 mg delayed release oral capsule (20 sources)Proton Pump InhibitorStart: 06-18-2023 End: 00-20-2338wewx 1 capsule by mouth once dailyOmeprazole 20 mg Capsule,Delayed Release(Dr/Ec) Discontinued 20 MG PO Daily June 18, 2023 1:00am December 14, 2024 8:47amtake 1 capsule by mouth once dailyOmeprazole 20 MG 1 capsule 30 minutes before morning meal Orally Once a day ActivetraMADol hydrochloride 50 mg oral tablet (7 sources)Opioid AgonistStart: 12-14-2024 End: 09-65-4803jgci 1 tablet by mouth every eight hours as neededTramadol 50 mg tablet Discontinued 50 MG PO Every 8 hours as needed December 14, 2024 12:00am January 24, 2025 8:45amvarenicline 1 mg oral tablet (20 sources)Partial Cholinergic Nicotinic AgonistStart: 06-15-2024 End: 02-49-5846uaze 1 tablet by mouth onceVarenicline Tartrate 0.5 mg (11)- 1 mg (42) tablets,dose pack Discontinued 0 PO per package directions June 15, 2024 1:00am January 24, 2025 8:44am = Starter PackStart: 06-18-2023 End: 24-98-6606aavl 1 tablet by mouth twice dailyVarenicline Tartrate 1 mg tablet Discontinued 1 MG PO Twice daily 60 June 15, 2024 10:15amJun2024 2:48pm = Continuing packVarenicline Tartrate 1 MG as directed Orally Active Problems Active Problems Problem ClassificationProblemDateDocumented DateEpisodic/ChronicAlcohol-related disorders (2 sources)Alcohol taoys28-00-2498BoldhfsOcfirp (9 sources)Asthma-chronic obstructive pulmonary disease overlap syndrome; Translations: [Asthma-chronic obstructive pulmonary disease overlap syndrome] 07-63-5457GknfcheOdiknln obstructive pulmonary disease and bronchiectasis (20 sources)Chronic obstructive lung disease; Translations: [Chronic obstructive pulmonary disease, unspecified]ChronicDisorders of lipid metabolism (2 sources)Jeoyplbekyctnlmqlrew20-87-1800RllvomcE Codes: Natural/environment (19 sources)Repetitive motion disorder; Translations: [Overexertion from repetitive movements, initial encounter]65-08-1184NxsvbaqnJbcnvgdreh disorders (16 sources)Gastroesophageal reflux disease; Translations: [Gastro-esophageal reflux disease without esophagitis]41-34-8321JquhdreKgxmitqw (20 sources)Raynaud's disease; Translations: [Raynaud's syndrome with gangrene] ChronicGangrene (5 sources)Gangrenous disorder; Translations: [Gangrene, not elsewhere classified]10-97-8718BmwqcwkxWvwzqevh disorders (2 sources)Autoimmune disease; Translations: [Other specified disorders involving the immune mechanism, not elsewhere classified]26-78-1885VtenlnnBqtvl and ill-defined heart disease (14 sources)Diastolic dysfunction; Translations: [Other ill-defined heart diseases]62-27-6136AmirugpLheoi and ill-defined heart disease (6 sources)Other ill-defined heart diseases; Translations: [Heart disease, unspecified]61-36-7325MdylezkJzbka and unspecified benign neoplasm (1 source)Polyp of colon; Translations: [Polyp of colon]Onset: 09-08-2024 EpisodicOther circulatory disease (2 sources)Raynaud's syndrome without gangrene; Translations: [Raynaud's syndrome]Onset: 355339-12-9533JckuamdFtwvh circulatory disease (18 sources)Vascular disorder of extremity; Translations: [Disorder of arteries and arterioles, unspecified]46-49-5787JdkxakwMvgpg circulatory disease (17 sources)Thromboangiitis obliterans; 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]]99-37-4675KitigpdPoezs circulatory disease (3 sources)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]; 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]]57-77-3832HjrifziWkboc connective tissue disease (20 sources)Other symptoms and signs involving the musculoskeletal system; Translations: [Weakness of right upper extremity]Onset: EpisodicOther diseases of veins and lymphatics (15 sources)Calcified lymph nodes; Translations: [Other specified noninfective disorders of lymphatic vessels and lymph nodes]95-40-5303AieqrgfKikeb diseases of veins and lymphatics (7 sources)Other specified noninfective disorders of lymphatic vessels and lymph nodes; Translations: [Other noninfectious disorders of lymphatic channels] 79-62-5295IsayltsKzugf gastrointestinal disorders (1 source)Abnormal feces; Translations: [Other fecal abnormalities]Onset: 80-97-3423CjohxwxfQvoiw gastrointestinal disorders (2 sources)Occult blood in ahinps90-34-3978CbfrwdwyGrlym gastrointestinal disorders (1 source)Hyperplastic polyp of gskhvalzo02-96-6606MrtepvloLzopd lower respiratory disease (2 sources)Parietoalveolar pneumopathy; 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, unspecified]ChronicOther lower respiratory disease (16 sources)Interstitial lung disease; 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, unspecified]27-88-7969RhlyukcTqamc lower respiratory disease (3 sources)Nodule of lung; Translations: [Solitary pulmonary nodule]12-14-2023 EpisodicOther lower respiratory disease (2 sources)Solitary pulmonary noduleEpisodicOther lower respiratory disease (18 sources)Cavitation of lung; Translations: [Other disorders of lung] 57-50-1979VyyzlprrWfkqn lower respiratory disease (7 sources)Other disorders of lung; Translations: [Other diseases of lung, not elsewhere classified]48-87-5344MdyzgfwaOlibu nervous system disorders (19 sources)Numbness and tingling sensation of skin; Translations: [Anesthesia of skin]16-99-2606AudqrpnaKoxxu nervous system disorders (1 source)Paresthesia of right upper limb; Translations: [Paresthesia of skin] 03-07-4527HdlqdjvbKubfv nervous system disorders (1 source)Anesthesia of skin; Translations: [Anesthesia of skin]Onset: 30-78-3785XknqpaclSihro nutritional; endocrine; and metabolic disorders (2 sources)Qdjdalyjew76-53-4776CcvruldeZhaue nutritional; endocrine; and metabolic disorders (2 sources)Overweight in adulthood with body mass index of 25 or more but less than 5432-11-7224UlcwzmafDgkkl screening for suspected conditions (not mental disorders or infectious disease) (2 sources)Radiology result abnormal; Translations: [Abnormal findings on diagnostic imaging of other specified body structures]ChronicPulmonary heart disease (20 sources)Secondary pulmonary hypertension; Translations: [Other secondary pulmonary hypertension]01-37-0726QuupvtkXdtkplx on above:Echocardiogram:- 07/22/2023: RVSP 43mmHg-12/10/2022: RVSP 18mmHgResidual codes; unclassified (17 sources)Pain; Translations: [Pain, unspecified]80-37-0074YigddzdqEypmdeof codes; unclassified (4 sources)Tobacco user; Translations: [Tobacco use]55-39-9619UfiascqhDwytaoki codes; unclassified (1 source)Pain, unspecified; Translations: [Generalized pain]21-05-8997Zessoqho Residual codes; unclassified (2 sources)Tobacco use; Translations: [Tobacco use disorder]77-22-8643Fylcpuas Substance-related disorders (20 sources)Tobacco user; Translations: [Nicotine dependence, unspecified, uncomplicated]ChronicSystemic lupus erythematosus and connective tissue disorders (20 sources)CREST syndrome; 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]Onset: 09-19-2024 05-18-9162WrbyeioPddlyywiilmb (3 sources)CONTACT W/AND (SUSP) EXPOS COVID-19; Translations: [CONTACT W/AND (SUSP) EXPOS COVID-19]Onset: 28-95-0891Qhgldqstwvdg (4 sources)Inflammatory disorder; Translations: [Inflammation]06-22-2023 Unclassified (4 sources)R29.898 - Other symptoms and signs involving the musculoskeletal system,X50.3XXA - Overexertion from repetitive movements, initial encounter,R20.0 - Anesthesia of skin,R20.2 - Paresthesia of skinViral infection (1 source)COVID-19; Translations: [COVID-19]Onset: 07-11-2022 Past or Other Problems Problem ClassificationProblemDateDocumented DateEpisodic/ChronicOther skin disorders (2 sources)Rash and other nonspecific skin eruption; Translations: [Rash and other nonspecific skin eruption]Onset: 24-74-7918BxofncdeYwqwqxteigxn (1 source)CONTACT W/AND (SUSP) EXPOS COVID-19; Translations: [CONTACT W/AND (SUSP) EXPOS COVID-19]Onset: 07-13-2022 Results Test NameValueInterpretationReference RqpfqAsjdbipv51wd 64-90-383049Vegxon pt to reschedule appt on 06/08/25 due to testing not being completed however did want to come to [place] for appt then put on phone to discuss the information of appt however stated his rash was getting better and not worried about the varicose veins therefore [facility]4330UI cervical spine wo [facility] [place] [address] MRI Report Signed Patient: Ritchie Thorne MR#: [id number] : 1975 Acct:[id number] Age/Sex: 49 / M ADM Date: 05/09/25 Loc: [facility] Room: Type: [facility] Attending Dr: Iris Livingston APRN Copies to: [...] causing moderate severe neural foraminal narrowing and zkqu-ss-aijisfzb central stenosis. C7-T1: Uncovertebral spurring and facet [...] Pettit M.D. 05/09/2025 10:34 AM Dictation Location: [place] [address] Transcribed By: EVELYN 05/09/25 1034 Dictated By: Jayson Pettit MD 05/09/25 1022 Signed By: 05/09/25 1034[facility] Physician GroupMagnetic resonance imaging reportOrdered By: Jayson Pettit on 44-41-0736Urxcx reportMER[facility] [place] [address] [place] [address] MRI Report Signed Patient: Ritchie Thorne MR#: [id number] : 1975 Acct:[id number] Age/Sex: 49 / M ADM Date: 5 [facility] Attending Dr: Iris Livingston APRN Copies to: [...] spurringcausing moderate severe neural foraminal narrowing and uhxs-uz-duesfxxp central stenosis. C7-T1: Uncovertebral spurring and facet [...] Pettit M.D. 05/09/2025 10:34 AM Dictation Location: [place] [address] Transcribed By: EVELYN 05/09/25 103 Dictated By: Jayson Pettit MD 05/09/25 1022 Signed By: 05/09/254 [facility] Work Phone: Alanine aminotransferase [Enzymatic activity/volume] in Serum or PlasmaOrdered By: Jenny Pop on 84-56-3849LAI [Catalytic activity/Vol]Alanine aminotransferase [Enzymatic activity/volume] in Serum or Plasma7-52[facility] HospitalAlbumin [Mass/volume] in Serum or Plasma by Bromocresol green (BCG) dye binding methoOrdered By: Jenny Ppo on 06-80-0578Upcjsfv BCG dye [Mass/Vol]Albumin [Mass/volume] in Serum or Plasma by Bromocresol green (BCG) dye binding metho3.5-5.7FFulton County Health CenterAlkaline phosphatase [Enzymatic activity/volume] in Serum or PlasmaOrdered By: Jenny Pop on 03-68-3651ONH [Catalytic activity/Vol]Alkaline phosphatase [Enzymatic activity/volume] in Serum or JiwgobNakc37-160WuxrofnatMemorial HospitalAppearance of UrineOrdered By: Jenny Pop on 09-19-2024 Appearance (U)Urine appearanceCleWadsworth-Rittman HospitalAspartate aminotransferase [Enzymatic activity/volume] in Serum or PlasmaOrdered By: Jenny Pop on 71-52-2834FME [Catalytic activity/Vol]Aspartate aminotransferase [Enzymatic activity/volume] in Serum or Pjzgva10-82NuyiybfrdMemorial HospitalBacteria [Presence] in Urine by AutomatedOrdered By: Jenny Pop on 23-88-7940Shorgakl Auto Ql (U)Bacteria [Presence] in Urine by AutomatedNone Seen Memorial HospitalBasophils Auto (Bld) [#/Vol]Ordered By: Jenny Pop on 37-19-1853Nijedoyei (Bld) [#/Vol]Automated basophil count0.0-0.2 Memorial HospitalBasophils/100 WBC Auto (Bld)Ordered By: Jenny Pop on 24-31-1887Kunzgzmjb/100 WBC (Bld)Automated basophil %.Memorial HospitalBilirubin Test strip Ql (U)Ordered By: Jenny Pop on 15-39-1230Rhbammosc Ql (U)Bilirubin.total [Presence] in Urine by Test strip NegativeMemorial HospitalBilirubin.total [Mass/volume] in Serum or PlasmaOrdered By: Jenny Pop on 99-84-2441Wyeoxufja [Mass/Vol] Bilirubin.total [Mass/volume] in Serum or Plasma0.3-1.0Memorial HospitalC reactive protein [Mass/volume] in Serum or PlasmaOrdered By: Jenny Pop on 13-24-5733UJL [Mass/Vol]C reactive protein [Mass/volume] in Serum or PlasmaHigh0.0-0.5FFulton County Health CenterC-Reactive Proteinon 72-29-6856U-Reactive Protein2.9 mg/dLHigh0.0-0.5[facility] Comment on above:Result Comment: PERFORMED BY: [address] [place] [address] PATHOLOGIST PRINTING SUPERVISOR JUAN RAMON CORLEY M.D.Performed By: #### C3, CH50, C4 #### [facility] , #### CBC, CRP, CMP, ADDONUAPLUS, ESR #### [place] [address] USACalcium [Mass/volume] in Serum or PlasmaOrdered By: Jenny Pop on 22-30-0686Mxkfezv [Mass/Vol]Calcium [Mass/volume] in Serum or Plasma8.6-10.3FFulton County Health CenterCarbon dioxide, total [Moles/volume] in Serum or PlasmaOrdered By: Jenny Pop on 47-23-4716WP3 [Moles/Vol]Carbon dioxide, total [Moles/volume] in Serum or BylmiqOzr40.0-31.0 Memorial HospitalChloride [Moles/volume] in Serum or Plasma Ordered By: Jenny Pop on 48-68-0676Huxmkcfr [Moles/Vol]Chloride [Moles/volume] in Serum or Niabce28-850Mycroxkyj[address] [place], [place] [address]Color Auto (U)Ordered By: Jenny Pop on 79-89-0613Ailzi (U)Color of Urine by Auto [facility] Medical CenterComplement C3on 42-55-2198Jhbgspuhnx C3 193 mg/qFJlqr96-360Hvj [facility] Physician GroupComment on above:Result Comment: Performed at: [facility] [employer] [id number] Design Drafter Chief: Javier Dominguez PhD, Phone: [phone] By: #### C3, CH50, C4 #### [facility] , #### CBC, CRP, CMP, ADDONUAPLUS, ESR #### [facility] [address] [place] [address] USAComplement C4on 62-85-6204Ijpbwezyzd C451 mg/tQGtti07-50 [facility] HospitalComment on above:Result Comment: PERFORMED BY: [place] [address] PATHOLOGIST PRINTING SUPERVISOR JUAN RAMON CORLEY M.D.Performed By: #### C3, CH50, C4 #### [facility] , #### CBC, CRP, CMP, ADDONUAPLUS, ESR #### [facility] [address] [place] [address] USAComplement Total (CH50)on 43-48-0260Sfnyhdzdli Total (CH50)>60Normal>41[facility] HospitalComment on above:Result Comment: Age Male Female [...] determine out of range values. Performed at: [employer] [id number] Design Drafter Chief: Javier Dominguez PhD, Phone: [phone] PERFORMED BY: [place] [address] PATHOLOGIST PRINTING SUPERVISOR JUAN RAMON CORLEY M.D.Performed By: #### C3, CH50, C4 #### [facility] , #### CBC, CRP, CMP, ADDONUAPLUS, ESR #### [place] [address] USAComplete Blood Count Auto Diffon 38-97-5607Fmavspjlg (Bld) [#/Vol]0.1 10*3/uLNormal0.0-0.2The [facility] Physician GroupComment on above: Performed By: #### C3, CH50, C4 #### [facility] , #### CBC, CRP, CMP, ADDONUAPLUS, ESR #### [place] [address] USABasophils/100 WBC (Bld)0.9 %Normal.The [facility] Physician GroupComment on above:Performed By: #### C3, CH50, C4 #### [facility] , #### CBC, CRP, CMP, ADDONUAPLUS, ESR #### [place] [address] USAEosinophils (Bld) [#/Vol]0.0 10*3/uLNormal0.0-0.45The [facility] Physician GroupComment on above:Performed By: #### C3, CH50, C4 #### [facility] , #### CBC, CRP, CMP, ADDONUAPLUS, ESR #### [place] [address] USAEosinophils/100 WBC (Bld)0.5 %Normal.[facility] Physician GroupComment on above:Performed By: #### C3, CH50, C4 #### [facility] , #### CBC, CRP, CMP, ADDONUAPLUS, ESR #### [place] [address] USAErythrocyte distribution width (RBC) [Ratio]13.9 %Normal 12.0-14.8[facility] Physician GroupComment on above:Performed By: #### C3, CH50, C4 #### [facility] , #### CBC, CRP, CMP, ADDONUAPLUS, ESR #### [place] [address] USAHematocrit (Bld) [Volume fraction]40.7 %Bbdyov87.8-50.0The [facility] Physician GroupComment on above:Performed By: #### C3, CH50, C4 #### [facility] , #### CBC, CRP, CMP, ADDONUAPLUS, ESR #### [place] [address] USAHemoglobin (Bld) [Mass/Vol]14.1 g/uJIegqkx53.0-17.0The [facility]ician GroupComment on above:Performed By: #### C3, CH50, C4 #### [facility] , #### CBC, CRP, CMP, ADDONUAPLUS, ESR #### [place] [address] USALymphocytes (Bld) [#/Vol]1.6 10*3/uLNormal1.00-4.8[facility] Physician GroupComment on above:Performed By: #### C3, CH50, C4 #### [facility] , #### CBC, CRP, CMP, ADDONUAPLUS, ESR #### [place] [address] USALymphocytes/100 WBC (Bld)16.9 %Normal.[facility] Physician GroupComment on above:Performed By: #### C3, CH50, C4 #### [facility] , #### CBC, CRP, CMP, ADDONUAPLUS, ESR #### [address] (RBC) [Entitic mass]33.6 fbLhzjim78.5-35.2The [facility] Physician GroupComment on above:Performed By: #### C3, CH50, C4 #### [facility] , #### CBC, CRP, CMP, ADDONUAPLUS, ESR #### [address] (RBC) [Entitic vol]97.1 gULbqrtx86.5-101[facility] Physician GroupComment on above:Performed By: #### C3, CH50, C4 #### [facility] , #### CBC, CRP, CMP, ADDONUAPLUS, ESR #### [place] [address] USAMean Corpuscular HGB Conc34.6 g/wZXxjbff45.5-35.6The [facility] Physician GroupComment on above:Performed By: #### C3, CH50, C4 #### [facility] , #### CBC, CRP, CMP, ADDONUAPLUS, ESR #### [facility] [address] [place] [address] USAMonocytes (Bld) [#/Vol]1.1 10*3/uLHigh0.0-0.8The [facility] Physician GroupComment on above:Performed By: #### C3, CH50, C4 #### [facility] , #### CBC, CRP, CMP, ADDONUAPLUS, ESR #### [facility] [address] [place] [address] USAMonocytes/100 WBC (Bld)12.1 %Normal.The [facility] Physician GroupComment on above:Performed By: #### C3, CH50, C4 #### [facility] , #### CBC, CRP, CMP, ADDONUAPLUS, ESR #### [place] [address] USANeutrophils (Bld) [#/Vol]6.5 10*3/uLNormal1.8-7.7The [facility] Physician GroupComment on above:Performed By: #### C3, CH50, C4 #### [facility] , #### CBC, CRP, CMP, ADDONUAPLUS, ESR #### [facility] [address] [place] [address] USANeutrophils/100 WBC (Bld)69.6 %Normal.The [facility] Physician GroupComment on above:Performed By: #### C3, CH50, C4 #### [facility] , #### CBC, CRP, CMP, ADDONUAPLUS, ESR #### [facility] [address] [place] [address] USANRBC%0.1 /100{WBC}Normal0-0.5[facility] Comment on above:Performed By: #### C3, CH50, C4 #### [facility] , #### CBC, CRP, CMP, ADDONUAPLUS, ESR #### [facility] [address] [place] [address] USAPlatelet mean volume (Bld) [Entitic vol]8.7 fLNormal 6.6-10.1The [facility] Physician GroupComment on above:Performed By: #### C3, CH50, C4 #### [facility] , #### CBC, CRP, CMP, ADDONUAPLUS, ESR #### [facility] [address] [place] [address] USAPlatelets (Bld) [#/Vol]226 10*3/dYFjpzky085-002Mpe [facility] Physician GroupComment on above:Performed By: #### C3, CH50, C4 #### [facility] , #### CBC, CRP, CMP, ADDONUAPLUS, ESR #### [facility] [address] [place] [address] USARBC (Bld) [#/Vol]4.19 10*6/uLNormal3.90-5.60The [facility] Physician GroupComment on above:Performed By: #### C3, CH50, C4 #### [facility] , #### CBC, CRP, CMP, ADDONUAPLUS, ESR #### [facility] [address] [place] [address] USAWBC (Bld) [#/Vol]9.3 10*3/uLNormal4.1-10.5The [facility] Physician GroupComment on above:Performed By: #### C3, CH50, C4 #### [facility] , #### CBC, CRP, CMP, ADDONUAPLUS, ESR #### [place] [address] USAComprehensive Metabolic Panelon 58-64-3107Fkaqckp [Mass/Vol]4.2 g/dLNormal3.5-5.7The [facility] Physician GroupComment on above: Performed By: #### C3, CH50, C4 #### [facility] , #### CBC, CRP, CMP, ADDONUAPLUS, ESR #### [facility] [address] [place] [address] USAAlbumin/Globulin [Mass ratio]1.4 {ratio}NormalThe [facility] Physician GroupComment on above:Performed By: #### C3, CH50, C4 #### [facility] , #### CBC, CRP, CMP, ADDONUAPLUS, ESR #### [facility] [address] [place] [address] USAALP [Catalytic activity/Vol]108 U/GXtpk47-500Fkw [facility] Physician GroupComment on above:Performed By: #### C3, CH50, C4 #### [facility] , #### CBC, CRP, CMP, ADDONUAPLUS, ESR #### [facility] [address] [place] [address] USAALT [Catalytic activity/Vol]37 U/LNormal7-52The [facility] Physician GroupComment on above:Performed By: #### C3, CH50, C4 #### [facility] , #### CBC, CRP, CMP, ADDONUAPLUS, ESR #### [place] [address] USAAnion gap [Moles/Vol]18.2 mmol/LHigh6.0-15.0The [facility] Physician GroupComment on above:Performed By: #### C3, CH50, C4 #### [facility] , #### CBC, CRP, CMP, ADDONUAPLUS, ESR #### [facility] [address] [place] [address] USAAST [Catalytic activity/Vol]30 U/ZGjgwxj64-57Xnh [facility] Physician GroupComment on above:Performed By: #### C3, CH50, C4 #### [facility] , #### CBC, CRP, CMP, ADDONUAPLUS, ESR #### [facility] [address] [place] [address] USABilirubin [Mass/Vol]0.3 mg/dLNormal0.3-1.0The [facility] Physician GroupComment on above:Performed By: #### C3, CH50, C4 #### [facility] , #### CBC, CRP, CMP, ADDONUAPLUS, ESR #### [facility] [address] [place] [address] USACalcium [Mass/Vol]9.2 mg/dLNormal8.6-10.3The [facility] Physician GroupComment on above:Performed By: #### C3, CH50, C4 #### [facility] , #### CBC, CRP, CMP, ADDONUAPLUS, ESR #### [facility] [address] [place] [address] USAChloride [Moles/Vol]102 mmol/YUntqzf36-370Kmj [facility] Physician GroupComment on above:Performed By: #### C3, CH50, C4 #### [facility] , #### CBC, CRP, CMP, ADDONUAPLUS, ESR #### [place] [address] USACO2 [Moles/Vol]20.7 mmol/LLow21.0-31.0The [facility] Physician GroupComment on above:Performed By: #### C3, CH50, C4 #### [facility] , #### CBC, CRP, CMP, ADDONUAPLUS, ESR #### [place] [address] USACreatinine [Mass/Vol]0.89 mg/dLNormal0.70-1.30The [facility] Physician GroupComment on above:Performed By: #### C3, CH50, C4 #### [facility] , #### CBC, CRP, CMP, ADDONUAPLUS, ESR #### [place] [address] USAGFR/1.73 sq M.predicted MDRD (S/P/Bld) [Vol rate/Area] mL/min/{1.73_m2}NormalThe [facility] Physician GroupComment on above:Performed By: #### C3, CH50, C4 #### [facility] , #### CBC, CRP, CMP, ADDONUAPLUS, ESR #### [place] [address] USAGlobulin (S) [Mass/Vol]3.1 g/dLNormalThe [facility] Physician GroupComment on above:Performed By: #### C3, CH50, C4 #### [facility] , #### CBC, CRP, CMP, ADDONUAPLUS, ESR #### [place] [address] USAGlucose [Mass/Vol]85 mg/vSZcnfyk39-522Crn [facility] Physician GroupComment on above:Result Comment: Random Glucose Reference Range is dependent on time and content of last meal. Glucose of more than 200 mg/dL in a nonstressed, ambulatory subject supports the diagnosis of Diabetes Mellitus. ADA recommended reference rangePerformed By: #### C3, CH50, C4 #### [facility] , #### CBC, CRP, CMP, ADDONUAPLUS, ESR #### [place] [address] USAPotassium [Moles/Vol]3.9 mmol/LNormal3.5-5.1The [facility] Physician GroupComment on above:Performed By: #### C3, CH50, C4 #### [facility] , #### CBC, CRP, CMP, ADDONUAPLUS, ESR #### [facility] [address] [place] [address] USAProtein [Mass/Vol]7.3 g/dLNormal6.4-8.9The [facility] Physician GroupComment on above:Performed By: #### C3, CH50, C4 #### [facility] , #### CBC, CRP, CMP, ADDONUAPLUS, ESR #### [facility] [address] [place] [address] USASodium [Moles/Vol]137 mmol/CGvvitz652-436Dea [facility] Physician GroupComment on above:Performed By: #### C3, CH50, C4 #### [facility] , #### CBC, CRP, CMP, ADDONUAPLUS, ESR #### [facility] [address] [place] [address] USAUrea nitrogen [Mass/Vol]11 mg/dLNormal7-25The [facility] Physician GroupComment on above:Performed By: #### C3, CH50, C4 #### [facility] , #### CBC, CRP, CMP, ADDONUAPLUS, ESR #### [facility] [address] [place] [address] USACreatinine [Mass/volume] in Serum or PlasmaOrdered By: Jenny Pop on 15-41-7886Fxmdrikchr [Mass/Vol]Creatinine [Mass/volume] in Serum or Plasma0.70-1.30F[facility]nadines Regional Medical CenterDipstick and Microscopicon 95-64-7368Xttxjysufv (U)ClearNormalClearGainesville Va Medical Center Physician GroupComment on above:Order Comment: Name Collection Type:: Clean-Voided MidstreamPerformed By: #### C3, CH50, C4 #### [facility] , #### CBC, CRP, CMP, ADDONUAPLUS, ESR #### [place] [address] USABacteria,UrineNone SeenNormalNone SeenKent Hospital GroupComment on above:Order Comment: Name Collection Type:: Clean- Voided MidstreamPerformed By: #### C3, CH50, C4 #### [facility] , #### CBC, CRP, CMP, ADDONUAPLUS, ESR #### [place] [address] USABilirubin,UrineNegativeNormalNegativeGainesville Va Medical Center Physician GroupComment on above:Order Comment: Name Collection Type:: Clean- Voided MidstreamPerformed By: #### C3, CH50, C4 #### [facility] , #### CBC, CRP, CMP, ADDONUAPLUS, ESR #### [facility] [address] [place] [address] USAColor (U)Light-YellowNormalYellowGainesville Va Medical Center Physician GroupComment on above:Order Comment: Name Collection Type:: Clean-Voided MidstreamPerformed By: #### C3, CH50, C4 #### [facility] , #### CBC, CRP, CMP, ADDONUAPLUS, ESR #### [facility] [address] [place] [address] USAGlucose Ql (U)NormalNormalNormalThCurahealth Heritage Valley GroupComment on above:Order Comment: Name Collection Type:: Clean-Voided MidstreamPerformed By: #### C3, CH50, C4 #### [facility] , #### CBC, CRP, CMP, ADDONUAPLUS, ESR #### [place] [address] USAHyaline Casts,Qhgid7-9Dxnvvz2-6Vau [facility] Physician GroupComment on above:Order Comment: Name Collection Type:: Clean-Voided MidstreamPerformed By: #### C3, CH50, C4 #### [facility] , #### CBC, CRP, CMP, ADDONUAPLUS, ESR #### [place] [address] USAKetones Ql (U)NegativeNormalNegativeThe [facility] Physician GroupComment on above:Order Comment: Name Collection Type:: Clean- Voided MidstreamPerformed By: #### C3, CH50, C4 #### [facility] , #### CBC, CRP, CMP, ADDONUAPLUS, ESR #### [place] [address] USALeukocyte esterase Test strip Ql (U)NegativeNormalNegative The [facility] Physician GroupComment on above:Order Comment: Name Collection Type:: Clean-Voided MidstreamPerformed By: #### C3, CH50, C4 #### [facility] , #### CBC, CRP, CMP, ADDONUAPLUS, ESR #### [place] [address] USAMucus,UrineRareNormalThe [facility] Physician GroupComment on above:Order Comment: Name Collection Type:: Clean-Voided MidstreamResult Comment: PERFORMED BY: [place] [address] PATHOLOGIST PRINTING SUPERVISOR JUAN RAMON CORLEY M.D.Performed By: #### C3, CH50, C4 #### [facility] , #### CBC, CRP, CMP, ADDONUAPLUS, ESR #### [place] [address] USANitrite,UrineNegativeNormalNegativeThe [facility] Physician GroupComment on above:Order Comment: Name Collection Type:: Clean-Voided MidstreamPerformed By: #### C3, CH50, C4 #### [facility] , #### CBC, CRP, CMP, ADDONUAPLUS, ESR #### [place] [address] USAOccult Blood,UrineNegativeNormalNegativeThe [facility] Physician GroupComment on above:Order Comment: Name Collection Type:: Clean- Voided MidstreamPerformed By: #### C3, CH50, C4 #### [facility] , #### CBC, CRP, CMP, ADDONUAPLUS, ESR #### [place] [address] USApH (U)5.5 [pH]Normal5.0-9.0The [facility] Comment on above:Order Comment: Name Collection Type:: Clean-Voided Midstream Performed By: #### C3, CH50, C4 #### [facility] , #### CBC, CRP, CMP, ADDONUAPLUS, ESR #### [place] [address] USAProtein,UrineNegativeNormalNegativeThe [facility] Physician GroupComment on above:Order Comment: Name Collection Type:: Clean-Voided MidstreamPerformed By: #### C3, CH50, C4 #### [facility] , #### CBC, CRP, CMP, ADDONUAPLUS, ESR #### [facility] [address] [place] [address] USARBC,Jekes2-4Zxadlf9-3Bjw [facility] Physician GroupComment on above:Order Comment: Name Collection Type:: Clean-Voided MidstreamPerformed By: #### C3, CH50, C4 #### [facility] , #### CBC, CRP, CMP, ADDONUAPLUS, ESR #### [place] [address] USASpecificy [place],Urine1.554Laacgx8.001-1.030The [facility] Physician GroupComment on above:Order Comment: Name Collection Type:: Clean- Voided MidstreamPerformed By: #### C3, CH50, C4 #### [facility] , #### CBC, CRP, CMP, ADDONUAPLUS, ESR #### [facility] [address] [place] [address] USASquamous Epithelial Cell,Fciyk8-4Dihedf5-7Lde [facility] Physician GroupComment on above:Order Comment: Name Collection Type:: Clean- Voided MidstreamPerformed By: #### C3, CH50, C4 #### [facility] , #### CBC, CRP, CMP, ADDONUAPLUS, ESR #### [facility] [address] [place] [address] USAUrobilinogen,UrineNormalNormalNormalThe [facility] Physician GroupComment on above:Order Comment: Name Collection Type:: Clean- Voided MidstreamPerformed By: #### C3, CH50, C4 #### [facility] , #### CBC, CRP, CMP, ADDONUAPLUS, ESR #### [facility] [address] [place] [address] USAWBC,Dckys5-7Fcedos1-8Qwl [facility] Physician GroupComment on above:Order Comment: Name Collection Type:: Clean-Voided MidstreamPerformed By: #### C3, CH50, C4 #### [facility] , #### CBC, CRP, CMP, ADDONUAPLUS, ESR #### [facility] [address] [place] [address] USAEosinophils Auto (Bld) [#/Vol]Ordered By: Jenny Pop on 58-71-5317Cjvbbzwcghm (Bld) [#/Vol]Automated eosinophil count0.0-0.45 Memorial HospitalEosinophils/100 WBC Auto (Bld)Ordered By: Jenny Pop on 34-16-0056Kjprcrnvysf/100 WBC (Bld)Automated eosinophil %.Memorial HospitalEpithelial cells.squamous [#/area] in Urine sediment by Automated countOrdered By: Jenny Pop on 93-14-8283Atuzoximlo cells.squamous Auto (Urine sed) [#/Area]Epithelial cells.squamous [#/area] in Urine sediment by Automated count0-2FFulton County Health CenterErythrocyte Sedimentation Rateon 28-60-4907OXZ (Bld) [Velocity]76 mm/hHigh0The [facility] Physician GroupComment on above:Result Comment: PERFORMED BY: [place] [address] PATHOLOGIST PRINTING SUPERVISOR JUAN RAMON CORLEY M.D.Performed By: #### C3, CH50, C4 #### [facility] , #### CBC, CRP, CMP, ADDONUAPLUS, ESR #### [address] StreetErythrocyte distribution width Auto (RBC) [Ratio]Ordered By: Jenny Pop on 94-66-9183Dvbpkxpmpwe distribution width (RBC) [Ratio] Erythrocyte distribution width [Ratio] by Automated count12.0-14.8Memorial HospitalErythrocyte sedimentation rate by Photometric method Ordered By: Jenny Pop on 72-00-8056ECZ Photometric method (Bld) [Velocity] Erythrocyte sedimentation rate by Photometric methodHigh0-19Memorial HospitalErythrocytes [#/area] in Urine sediment by Automated countOrdered By: Jenny Ppo on 60-85-4851YZE Auto (Urine sed) [#/Area]Erythrocytes [#/area] in Urine sediment by Automated count04FFulton County Health CenterGlobulin Calc (S) [Mass/Vol]Ordered By: Jneny Pop on 09-19-2024 Globulin (S) [Mass/Vol]Serum globulin measurement by calculation (mass/volume) Memorial HospitalGlucose [Mass/volume] in Serum or PlasmaOrdered By: Jenny Pop on 40-78-4866Eszqdpk [Mass/Vol]Glucose [Mass/volume] in Serum or Yazmfa52-565MwogwgbosMemorial HospitalComment on above:ADA recommended reference rangeRandom Glucose Reference Range is dependent on time and content of last meal. Glucose of more than 200 mg/dL in a nonstressed, ambulatory subject supports the diagnosisof Diabetes Mellitus.Glucose [Mass/volume] in Urine by Test stripOrdered By: Jenny Pop on 09-19-2024 Glucose Test strip (U) [Mass/Vol]Glucose [Mass/volume] in Urine by Test strip NormalMemorial HospitalHematocrit Auto (Bld) [Volume fraction] Ordered By: Jenny Pop on 39-64-8239Jiumusfvro (Bld) [Volume fraction] Hematocrit [Volume Fraction] of Blood by Automated count38.8-50.0Memorial HospitalHemoglobin Test strip Ql (U)Ordered By: Jenny Pop on 61-71-0270Gjedttzsbn Ql (U)Hemoglobin [Presence] in Urine by Test stripNegative Memorial HospitalHemoglobin [Mass/volume] in BloodOrdered By: Jenny Pop on 57-23-3538Kidxndcfpy (Bld) [Mass/Vol]Hemoglobin [Mass/volume] in Blood13.0-17.0Memorial HospitalHyaline casts [#/area] in Urine sediment by Automated countOrdered By: Jenny Pop on 52-14-8796Eilgtzn casts Auto (Urine sed) [#/Area]Hyaline casts [#/area] in Urine sediment by Automated count0-8Memorial HospitalKetones Test strip Ql (U) Ordered By: Jenny Pop on 41-45-5494Jvcewlh Ql (U)Ketones [Presence] in Urine by Test stripNegMercy Health Springfield Regional Medical CenterLeukocyte esterase [Presence] in Urine by Test stripOrdered By: Jenny Pop on 09-19-2024 Leukocyte esterase Test strip Ql (U)Leukocyte esterase [Presence] in Urine by Test stripNegMercy Health Springfield Regional Medical CenterLeukocytes [#/area] in Urine sediment by Automated countOrdered By: Jenny Pop on 60-27-3334LOP Auto (Urine sed) [#/Area]Leukocytes [#/area] in Urine sediment by Automated count0-4 Memorial HospitalLeukocytes [#/volume] corrected for nucleated erythrocytes in Blood by Automated counOrdered By: Jenny Pop on 09-19-2024 WBC corrected for nucl RBC Auto (Bld) [#/Vol]Leukocytes [#/volume] corrected for nucleated erythrocytes in Blood by Automated coun4.1-10.5FFulton County Health CenterLymphocytes Auto (Bld) [#/Vol]Ordered By: Jenny Pop on 19-75-7282Gtqneqbpspk (Bld) [#/Vol]Lymphocytes [#/volume] in Blood by Automated count1.00-4.8Memorial HospitalLymphocytes/100 WBC Auto (Bld) Ordered By: Jenny Pop on 06-06-6099Ybxngpvasrt/100 WBC (Bld)Lymphocytes/100 leukocytes in Blood by Automated count.Memorial HospitalMCH Auto (RBC) [Entitic mass]Ordered By: Jenny Pop on 72-49-2517HPY (RBC) [Entitic mass]MCH [Entitic mass] by Automated count27.5-35.2FFulton County Health CenterMCHC Auto (RBC) [Mass/Vol]Ordered By: Jenny Pop on 09-19-2024 MCHC (RBC) [Mass/Vol]MCHC [Mass/volume] by Automated count32.5-35.6FFulton County Health CenterMCV Auto (RBC) [Entitic vol]Ordered By: Jenny Pop on 07-96-6115UXI (RBC) [Entitic vol]MCV [Entitic volume] by Automated count83.5-101 Memorial HospitalMonocytes Auto (Bld) [#/Vol]Ordered By: Jenny Pop on 32-34-5455Uswwaetnm (Bld) [#/Vol]Automated blood monocyte countHigh 0.0-0.8Memorial HospitalMonocytes/100 WBC Auto (Bld)Ordered By: Jenny Pop on 62-68-6514Qlfnziqyz/100 WBC (Bld)Automated monocyte %. Memorial HospitalMucus [Presence] in Urine by AutomatedOrdered By: Jenny Pop on 65-45-0899Znkyj Auto Ql (U)Mucus [Presence] in Urine by AutomatedMemorial HospitalNeutrophils Auto (Bld) [#/Vol]Ordered By: Jenny Pop on 23-19-9850Kssozbvyvor (Bld) [#/Vol]Neutrophils [#/volume] in Blood by Automated count1.8-7.7FFulton County Health Center Neutrophils/100 WBC Auto (Bld)Ordered By: Jenny Pop on 09-19-2024 Neutrophils/100 WBC (Bld)Automated neutrophil %.Memorial HospitalNitrite Test strip Ql (U)Ordered By: Jenny Pop on 74-39-4785Pboczlt Ql (U)Nitrite [Presence] in Urine by Test stripNegativeMemorial HospitalNo Panel InformationOrdered By: Jenny Pop on 09-19-2024 Estimated GFR (CKD-EPI)> 60.0 mL/MinMemorial HospitalPharmacy Creatinine Clearance (ChemN/AFFulton County Health CenterNucleated erythrocytes [Presence] in Blood by Automated countOrdered By: Jenny Pop on 58-64-0281Nlbrheyhu RBC Auto Ql (Bld)Nucleated erythrocytes [Presence] in Blood by Automated count0-0.5FFulton County Health CenterPlatelet mean volume Auto (Bld) [Entitic vol]Ordered By: Jenny Pop on 08-21-0265Lpvtrhkr mean volume (Bld) [Entitic vol]Platelet mean volume [Entitic volume] in Blood by Automated count6.6-10.1FFulton County Health CenterPlatelets Auto (Bld) [#/Vol]Ordered By: Jenny Pop on 56-87-2130Bzplkoqhq (Bld) [#/Vol]Platelets [#/volume] in Blood by Automated rvmua870-991FyugrdzhbMemorial Hospital Potassium [Moles/volume] in Serum or PlasmaOrdered By: Jenny Pop on 54-49-3786Njncsglop [Moles/Vol]Potassium [Moles/volume] in Serum or Plasma 3.5-5.1FFulton County Health CenterProtein Test strip (U) [Mass/Vol]Ordered By: Jenny Pop on 88-36-7731Pbhnvsg (U) [Mass/Vol]Protein [Mass/volume] in Urine by Test stripNegativeMemorial HospitalProtein [Mass/volume] in Serum or PlasmaOrdered By: Jenny Pop on 07-90-5133Bebjift [Mass/Vol]Protein [Mass/volume] in Serum or Plasma6.4-8.9Memorial HospitalRBC Auto (Bld) [#/Vol]Ordered By: Jenny Pop on 14-67-1983LSI (Bld) [#/Vol]Erythrocytes [#/volume] in Blood by Automated count3.90-5.60 [facility] Centererum or plasma albumin/globulin mass ratio Ordered By: Jenny Pop on 41-64-8283Tkfouqy/Globulin [Mass ratio]Serum or plasma albumin/globulin mass ratioCincinnati Children's Hospital Medical Centererum or plasma anion gap determinationOrdered By: Jenny Pop on 76-87-4268Stqrp gap [Moles/Vol]Serum or plasma anion gap determinationHigh6.0-15.0[facility] Medical Centererum or plasma complement C3 measurement (mass/volume)Ordered By: Jenny Pop on 01-78-5977Xaeaqndagp C3 [Mass/Vol]Serum or plasma complement C3 measurement (mass/volume)Dnxz00-651BtlfsnbmxMemorial HospitalComment on above:Performed at: - [facility] [place] [id number] Director: Javier Dominguez PhD, Phone: [phone] or plasma complement C4 measurement (mass/volume)Ordered By: Jenny Pop on 79-22-5583Rkzczhttwz C4 [Mass/Vol]Serum or plasma complement C4 measurement (mass/volume)Fwlq90-95GfgqvsbodCincinnati Children's Hospital Medical Centerodium [Moles/volume] in Serum or PlasmaOrdered By: Jenny Pop on 27-87-2243Jyfvvw [Moles/Vol]Sodium [Moles/volume] in Serum or Fddbgw064-238CtwhyqofmMemorial Hospital Specific gravity Test strip (U) [Rel density]Ordered By: Jenny Pop on 70-14-9242Vrhghebu gravity (U) [Rel density]Specific gravity of Urine by Test strip1.001-1.030Memorial HospitalTotal hemolytic complement CH50 assayOrdered By: Jenny Pop on 52-33-4321Bhfvi Complement (CH50)>60 U/mL>41 Memorial HospitalComment on above:Age Male Female 1 - [...] to determine out of range values.Performed at: [employer] [id number] Director: Javier Dominguez PhD, Phone: [phone] nitrogen [Mass/volume] in Serum or PlasmaOrdered By: Jenny Pop on 86-60-9308Hfcq nitrogen [Mass/Vol]Urea nitrogen [Mass/volume] in Serum or Plasma02-16Memorial HospitalUrobilinogen Test strip (U) [Mass/Vol]Ordered By: Jenny Pop on 38-74-6678Pjrtyapfbmud (U) [Mass/Vol] Urobilinogen [Mass/volume] in Urine by Test stripNormDayton VA Medical CenterWBC Auto (Bld) [#/Vol]Ordered By: Jenny Pop on 00-49-5623ZZH (Bld) [#/Vol]Leukocytes [#/volume] in Blood by Automated count4.1-10.5FFulton County Health CenterpH Test strip (U)Ordered By: Jenny Pop on 09-19-2024 pH (U)pH of Urine by Test strip5.0-9.0[facility] Ambulatory Visit Summaryon 63-21-0547Qwdnbkqglo Visit SummaryAmbulatory Visit Summary RITCHIE THORNE :1975 [...] you for choosing us for your care. [facility] CampusGeneral Surgery Office/Clinic Noteon 27-77-3624Vpksfaq Surgery Office/Clinic NoteGeneral Surgery Office/Clinic Note Chief [...] mRNA BNT-162b2 vax 04/10/2021 Recorded 2024-07-03: [id number] [facility] CampusComment on above:Result Comment: Electronically Signed By: JOAQUÍN CHAVEZ, Silvestre Gunderson\Date and Time Signed: 09/08/24 08:17 EST Reminderson 12-18-7242KnoniyhbgCejvdvxfm From: Ebony Owens LPN To: N - Clinical; Sent: 09/08/2024 08:09:58 EST Show up: 07/23/2034 07:00:00 EST Subject: colonoscopy recall Due Date/Time: 08/23/2034 07:00:00 EST Reminder/Recall Patient due for screening colonoscopy 08/23/2034.[facility] CampusLon 08-23-2024L Specimen: [id number] Received: 08/23/24 Status: GUERO Jessica Num: [id number] Spec Type: Surgical Subm Dr: Silvestre Yanes MD FACS Tissues: A Colon Biopsy (SIGMOID POLYP) Procedures: HE/2, Gross/Micro L4 Age/ Patient Sex Location Account Attending Physician Ritchie Thorne 49/M [facility] [id number] Silvestre Yanes MD FACS SPEC NUM: [id number] RECD: 08/23/24 STATUS: GUERO JESSICA NUM: [id number] KARIN: 08/23/[address] [address]: Silvestre Yanes MD FACS ENTERED: 08/23/[address]: Iveth Beckett SPEC TYPE: Surgical DEPT: MELVIN NEGRO ENTERED BY: [id number] RECV BY: [id number] ORDERED: HE/2, Gross/Micro L4 ORDERED: HE/2, Gross/Micro [...] Description Microscopic examination is performed. CPT Codes 10163 Specimen: [id number] Received: 08/23/24-1245 Status: GUERO Didi Num: [id number] Spec Type: Surgical Subm Dr: Silvestre Yanes MD FACS Tissues: A Colon Biopsy (SIGMOID POLYP) Procedures: Tyler DONIS/Favian L4 Patient: Ritchie Thorne [id number] (Continued) Signed (signature on file) Solomon Bates MD 08/24/24 1112Normal [facility] Physician Dcftm35gr [id number] and left vm to schedule venous reflux (75) and follow up with HP. Ideally would like same day.NormalUnOhio State Health SystemFollow-Upon 06-14-3083Jycotd-[id number] Ritchie Thorne 1975 M Date Provider Department Center 08/08/2024 150-MALLORIE LUGO HVCVASENDO [facility] No family history on file Level of Service:[address]645 [place] OFFICE/OUTPATIENT ESTABLISHED MOD MDM 30 MIN Reason for Visit and Comments: Follow-up [[id number]] - Raynaud's w gangrene, colonoscopy scheduled 08/22 ask if can be off plavix Inpatient 06/30/23NormalUniJ.W. Ruby Memorial HospitalTelephoneon 08-08-2024 [id number] Ritchie Thorne 1975 M Date Provider Department Center 08/08/2024 3200-EMELI CHIDI GLV [facility] No family history on fileNormalUniJ.W. Ruby Memorial HospitalAmbulatory Visit Summaryon [id number] Visit SummaryAmbulatory Visit Summary RITCHIE THORNE :1975 [...] you for choosing us for your care. [facility] CampusActivated partial thromboplastin time (aPTT) in platelet poor plasma by coagulation aOrdered By: Williams Krause on 75-99-2340yWMA Coag (PPP) [Time]28.0 s25.1-36.5FFulton County Health CenterComment on above:A hematocrit value greater than 55% may lead to inaccurate results in coagulation testing. Patientshaving hematocrit values >55% require a special collection tube for coagulation studies. Please contact the laboratory at [phone] for redraw instructions.Basophils Auto (Bld) [#/Vol] Ordered By: Williams Krause on 45-69-0906Fbqtseevm (Bld) [#/Vol]0.1 10*3/uL 0.0-0.2FFulton County Health CenterBasophils/100 WBC Auto (Bld)Ordered By: Williams Krause on 41-79-8961Ckbmwjjmd/100 WBC (Bld)1.3 %.Memorial HospitalC reactive protein [Mass/volume] in Serum or PlasmaOrdered By: Williams Krause on 44-37-5251IPP [Mass/Vol]< 0.5 mg/dL0.0-0.5FFulton County Health CenterCalcium [Mass/volume] in Serum or PlasmaOrdered By: Williams Krause on 61-24-8569Lefmjvk [Mass/Vol]8.5 mg/dL8.6-10.3FFulton County Health CenterCarbon dioxide, total [Moles/volume] in Serum or PlasmaOrdered By: Williams Krause on 49-16-1179FH4 [Moles/Vol]19.2 mmol/L21.0-31.0Memorial HospitalChloride [Moles/volume] in Serum or PlasmaOrdered By: Williams Krause on 97-64-0560Ckiiqpup [Moles/Vol]106 mmol/R13-231ZnzknnkudMemorial HospitalCreatinine [Mass/volume] in Serum or PlasmaOrdered By: Williams Krause on 03-19-5521Cpgjizvehe [Mass/Vol]0.94 mg/dL0.70-1.30Memorial HospitalEosinophils Auto (Bld) [#/Vol]Ordered By: Williams Krause on 96-32-3315Fwxpjlihhiz (Bld) [#/Vol]0.1 10*3/uL0.0-0.45Memorial HospitalEosinophils/100 WBC Auto (Bld)Ordered By: Williams Krause on 75-98-8889Hndslupmfec/100 WBC (Bld)1.0 %.Memorial HospitalErythrocyte distribution width Auto (RBC) [Ratio]Ordered By: Williams Krause on 38-23-9796Vajdzwmiozs distribution width (RBC) [Ratio]13.2 % 12.0-14.8Memorial HospitalErythrocyte sedimentation rate by Photometric methodOrdered By: Williams Krause on 69-58-3677BNA Photometric method (Bld) [Velocity]18 mm/hr0-14Memorial HospitalGlucose [Mass/volume] in Serum or PlasmaOrdered By: Willaims Krause on 06-18-2023 Glucose [Mass/Vol]119 mg/cQ57-846XfmjvbixoMemorial HospitalComment on above:ADA recommended reference rangeRandom Glucose Reference Range is dependent on time and content of last meal. Glucose of more than 200 mg/dL in a nonstressed, ambulatory subject supports the diagnosisof Diabetes Mellitus. Hematocrit Auto (Bld) [Volume fraction]Ordered By: Williams Krause on 89-42-8539Yrpegggapt (Bld) [Volume fraction]41.1 %38.8-50.0Memorial HospitalHemoglobin [Mass/volume] in BloodOrdered By: Williams Krause on 27-04-6432Iibsdewizn (Bld) [Mass/Vol]14.3 g/dL13.0-17.0Memorial HospitalINR in Platelet poor plasma by Coagulation assayOrdered By: Williams Krause on 01-69-4693JOQ Coag (PPP) [Relative time]1.0 {INR}Memorial HospitalComment on above:INR Therapeutic Range A) Pre- [...] by Automated counOrdered By: Williams Krause on 76-91-7210VCB corrected for nucl RBC Auto (Bld) [#/Vol]6.2 10*3/uL 4.1-10.5FFulton County Health CenterLymphocytes Auto (Bld) [#/Vol]Ordered By: Williams Krause on 57-19-0744Qimjrzmmoni (Bld) [#/Vol]2.1 10*3/uL1.00-4.8 Memorial HospitalLymphocytes/100 WBC Auto (Bld)Ordered By: Williams Krause on 64-63-0212Owqyyaagjvs/100 WBC (Bld)33.9 %.[facility] Auto (RBC) [Entitic mass]Ordered By: Williams Krause on 46-27-1935NTJ (RBC) [Entitic mass]33.7 pg27.5-35.2FSamaritan HospitalHC Auto (RBC) [Mass/Vol]Ordered By: Williams Krause on 34-58-5358CJED (RBC) [Mass/Vol]34.9 g/dL32.5-35.6FFulton County Health CenterMCV Auto (RBC) [Entitic vol]Ordered By: Williams Krause on 23-54-7765IGS (RBC) [Entitic vol]96.6 fL83.5-101Memorial HospitalMonocyte distribution width [Entitic volume] in Blood by AutomatedOrdered By: Williams Krause on 06-18-2023 Monocyte distribution width Auto (Bld) [Entitic vol]19.18 %0.00-20.00Memorial HospitalMonocytes Auto (Bld) [#/Vol]Ordered By: Williams Krause on 45-54-1202Xdrqdadad (Bld) [#/Vol]0.7 10*3/uL0.0-0.8Memorial HospitalMonocytes/100 WBC Auto (Bld)Ordered By: Williams Krause on 06-18-2023 Monocytes/100 WBC (Bld)10.5 %.Memorial HospitalNeutrophils Auto (Bld) [#/Vol]Ordered By: Williams Krause on 90-79-7077Mqenfuqyrmw (Bld) [#/Vol] 3.3 10*3/uL1.8-7.7FFulton County Health CenterNeutrophils/100 WBC Auto (Bld)Ordered By: Williams Krause on 89-11-4900Xnkrguzwuuk/100 WBC (Bld)53.3 %. Memorial HospitalNo Panel InformationOrdered By: Williams Krause on 46-89-3109Oeloadunz GFR (CKD-EPI)> 60.0 mL/MinMemorial HospitalPharmacy Creatinine Clearance (Negh181.34Memorial HospitalNucleated erythrocytes [Presence] in Blood by Automated count Ordered By: Williams Krause on 83-07-9304Mhgplkdgr RBC Auto Ql (Bld)0.3 /100{WBC}0-0.5FFulton County Health CenterPlatelet mean volume Auto (Bld) [Entitic vol]Ordered By: Williams Krause on 37-26-1989Gvmlkspl mean volume (Bld) [Entitic vol]7.7 fL6.6-10.1FFulton County Health CenterPlatelets Auto (Bld) [#/Vol]Ordered By: Williams Krause on 80-98-3830Yeglsbwea (Bld) [#/Vol] 297 10*3/fX930-671YykdtpgxkMemorial HospitalPotassium [Moles/volume] in Serum or PlasmaOrdered By: Williams Krause on 08-17-7697Cxiulsgkx [Moles/Vol] 4.7 mmol/L3.5-5.1FFulton County Health CenterProthrombin time (PT)Ordered By: Williams Krause on 82-49-0316MF Coag (PPP) [Time]12.2 s9.0-12.9Memorial HospitalComment on above:A hematocrit value greater than 55% may lead to inaccurate results in coagulation testing. Patientshaving hematocrit values >55% require a special collection tube for coagulation studies. Please c ontact the laboratory at [phone] for redraw instructions.RBC Auto (Bld) [#/Vol]Ordered By: Williams Krause on 84-27-6865CIZ (Bld) [#/Vol]4.26 10*6/uL 3.90-5.60[facility] Centererum or plasma anion gap determinationOrdered By: Williams Krause on 47-72-9837Jyhdr gap [Moles/Vol]TNP Memorial HospitalComment on above:Test not performedSodium [Moles/volume] in Serum or PlasmaOrdered By: Williams Krause on 06-18-2023 Sodium [Moles/Vol]134 mmol/S176-079FojtjsmbqMemorial HospitalUrea nitrogen [Mass/volume] in Serum or PlasmaOrdered By: Williams Krause on 47-82-0918Avbx nitrogen [Mass/Vol]22 mg/dL7-25[facility] WBC Auto (Bld) [#/Vol]Ordered By: Williams Krause on 64-93-2858RDO (Bld) [#/Vol]6.2 10*3/uL4.1-10.5FFulton County Health CenterActivated partial thromboplastin time (aPTT) in platelet poor plasma by coagulation aOrdered By: Williams Coronado on 74-46-5649rOHE Coag (PPP) [Time]27.6 s25.1-36.5FFulton County Health CenterAlanine aminotransferase [Enzymatic activity/volume] in Serum or PlasmaOrdered By: Williams Coronado on 35-88-2404EBD [Catalytic activity/Vol]34 U/L7-52Memorial HospitalAlbumin [Mass/volume] in Serum or Plasma by Bromocresol green (BCG) dye binding methoOrdered By: Williams Coronado on 83-43-2211Xsqbdeq BCG dye [Mass/Vol]4.2 g/dL3.5-5.7FFulton County Health CenterAlkaline phosphatase [Enzymatic activity/volume] in Serum or PlasmaOrdered By: Williams Coronado on 64-41-8088KPD [Catalytic activity/Vol]80 U/L 34-104Memorial HospitalAspartate aminotransferase [Enzymatic activity/volume] in Serum or PlasmaOrdered By: Williams Coronado on 27-07-0581TPS [Catalytic activity/Vol]27 U/I45-48EkadsxornMemorial HospitalAutomated erythrocytes count in urine sediment (number/area)Ordered By: Williams Coronado on 56-78-1519IOU Auto (Urine sed) [#/Area]None seen [HPF]0-4FFulton County Health CenterAutomated leukocytes count in urine sediment (number/area)Ordered By: Williams Coronado on 96-69-6483TLY Auto (Urine sed) [#/Area]None seen [HPF]0-4 Memorial HospitalBasophils Auto (Bld) [#/Vol]Ordered By: Williams Coronado on 08-78-8524Hcygfkoyo (Bld) [#/Vol]0.1 10*3/uL0.0-0.2FFulton County Health CenterBasophils/100 WBC Auto (Bld)Ordered By: Williams Coronado on 94-86-0333Ckmrtifbb/100 WBC (Bld)0.6 %.[facility] Bilirubin Test strip Ql (U)Ordered By: Williams Coronado on 13-11-4982Vborjuqzz Ql (U)NegativeNegativeMemorial HospitalBilirubin.total [Mass/volume] in Serum or PlasmaOrdered By: Williams Coronado on 11-24-2022 Bilirubin [Mass/Vol]0.4 mg/dL0.3-1.0Memorial HospitalC reactive protein [Mass/volume] in Serum or PlasmaOrdered By: Williams Coronado on 11-24-2022 CRP [Mass/Vol]< 0.5 mg/dL0.0-0.5FFulton County Health CenterCalcium [Mass/volume] in Serum or PlasmaOrdered By: Williams Coronado on 60-97-9360Yrzihpk [Mass/Vol]9.0 mg/dL8.6-10.3FFulton County Health CenterCarbon dioxide, total [Moles/volume] in Serum or PlasmaOrdered By: Williams Coronado on 11-24-2022 CO2 [Moles/Vol]25.7 mmol/L21.0-31.0Mem[facility] HospitalChloride [Moles/volume] in Serum or PlasmaOrdered By: Williams Coronado on 11-24-2022 Chloride [Moles/Vol]103 mmol/C36-415FmyuemtsrMemorial HospitalColor Auto (U)Ordered By: Williams Coronado on 87-59-1868Ugwox (U)YellowYellowMemorial HospitalCreatine kinase [Enzymatic activity/volume] in Serum or PlasmaOrdered By: Williams Coronado on 48-65-2793ZL [Catalytic activity/Vol]92 U/L 30-223Memorial HospitalCreatinine [Mass/volume] in Serum or PlasmaOrdered By: Williams Coronado on 60-94-6583Ojdjuzclaa [Mass/Vol]0.96 mg/dL 0.70-1.30Mem[facility] HospitalEosinophils Auto (Bld) [#/Vol]Ordered By: Williams Coronado on 47-10-5141Fpkirvksswg (Bld) [#/Vol]0.1 10*3/uL0.0-0.45 Memorial HospitalEosinophils/100 WBC Auto (Bld)Ordered By: Williams Coronado on 00-55-6647Rbtvdkbdyyd/100 WBC (Bld)1.2 %.[facility] HospitalErythrocyte distribution width Auto (RBC) [Ratio]Ordered By: Williams Coronado on 21-75-4560Sslkrczxums distribution width (RBC) [Ratio]13.9 % 12.0-14.8Memorial HospitalErythrocyte sedimentation rate by Photometric methodOrdered By: Williams Coronado on 47-70-6867KKB Photometric method (Bld) [Velocity]17 mm/hr0-14Memorial HospitalGlobulin Calc (S) [Mass/Vol]Ordered By: Williams Coronado on 66-60-4694Wzsetexk (S) [Mass/Vol]3.0 g/dLMemorial HospitalGlucose [Mass/volume] in Serum or Plasma Ordered By: Williams Coronado on 22-82-1518Vbzhyqq [Mass/Vol]80 mg/cL41-481 Memorial HospitalComment on above:ADA recommended reference rangeRandom Glucose Reference Range is dependent on time and content of last meal. Glucose of more than 200 mg/dL in a nonstressed, ambulatory subject supports the diagnosisof Diabetes Mellitus.Hematocrit Auto (Bld) [Volume fraction]Ordered By: Williams Coronado on 24-09-1181Tbevjffeaf (Bld) [Volume fraction]44.2 %38.8-50.0Memorial HospitalHemoglobin [Mass/volume] in BloodOrdered By: Williams Coronado on 53-33-5576Ngzcubpwwt (Bld) [Mass/Vol]14.9 g/dL13.0-17.0Memorial HospitalKetones Auto test strip (U) [Mass/Vol]Ordered By: Williams Coronado on 47-86-6705Izheogr (U) [Mass/Vol]NegativeNegativeMemorial HospitalLaboratory - CoagulationOrdered By: Williams Coronado on 69-22-9638TW Coag (PPP) [Time]10.5 s 9.0-12.9Mem[facility] HospitalLaboratory - UrinalysisOrdered By: Williams Coronado on 05-08-8407Kmmauhi casts LM Ql (Urine sed)None seen [LPF]0-8 Memorial HospitalLeukocytes [#/volume] corrected for nucleated erythrocytes in Blood by Automated counOrdered By: Williams Coronado on 11-24-2022 WBC corrected for nucl RBC Auto (Bld) [#/Vol]8.5 10*3/uL4.1-10.5FFulton County Health CenterLymphocytes Auto (Bld) [#/Vol]Ordered By: Williams Coronado on 49-28-4360Nmoqbhvokzz (Bld) [#/Vol]2.8 10*3/uL1.00-4.8Memorial HospitalLymphocytes/100 WBC Auto (Bld)Ordered By: Williams Coronado on 16-62-8088Gzppxiysjbv/100 WBC (Bld)32.7 %.[facility] HospitalH Auto (RBC) [Entitic mass]Ordered By: Williams Coronado on 43-28-9399KGU (RBC) [Entitic mass]34.0 pg27.5-35.2FFulton County Health CenterMCHC Auto (RBC) [Mass/Vol]Ordered By: Williams Coronado on 75-54-2472FKJL (RBC) [Mass/Vol]33.6 g/dL 32.5-35.6FFulton County Health CenterMCV Auto (RBC) [Entitic vol]Ordered By: Williams Coronado on 44-19-8265WCO (RBC) [Entitic vol]101.0 fL83.5-101Memorial HospitalMonocytes Auto (Bld) [#/Vol]Ordered By: Williams Coronado on 61-89-7312Nyanlpoqw (Bld) [#/Vol]0.9 10*3/uL0.0-0.8Memorial HospitalMonocytes/100 WBC Auto (Bld)Ordered By: Williams Coronado on 11-24-2022 Monocytes/100 WBC (Bld)10.1 %.Memorial HospitalNeutrophils Auto (Bld) [#/Vol]Ordered By: Williams Coronado on 54-56-3536Hinyybhbjsc (Bld) [#/Vol] 4.7 10*3/uL1.8-7.7FFulton County Health CenterNeutrophils/100 WBC Auto (Bld)Ordered By: Williams Coronado on 18-91-6380Adumystghdv/100 WBC (Bld)55.4 %. Memorial HospitalNitrite Test strip Ql (U)Ordered By: Williams Coronado on 41-60-2915Ykhfupg Ql (U)NegativeNegativeMemorial HospitalNo Panel InformationOrdered By: Williams Coronado on 85-19-6756Oxyjucmzu GFR (CKD-EPI)> 60.0 mL/MinMemorial HospitalPharmacy Creatinine Clearance (ChemN/AFFulton County Health CenterNucleated erythrocytes [Presence] in Blood by Automated countOrdered By: Williams Coronado on 11-24-2022 Nucleated RBC Auto Ql (Bld)0.1 /100{WBC}0-0.5FFulton County Health Center Platelet mean volume Auto (Bld) [Entitic vol]Ordered By: Williams Coronado on 56-58-0879Kdamlzis mean volume (Bld) [Entitic vol]9.0 fL6.6-10.1FFulton County Health CenterPlatelet poor plasma international normalized ratio (INR) by coagulation assay (relatOrdered By: Williams Coronado on 10-09-6762EOM Coag (PPP) [Relative time]0.9 {INR}Memorial HospitalComment on above: INR Therapeutic Range A) [...] Auto (Bld) [#/Vol]Ordered By: Williams Coronado on 66-52-6403Yjsqkpyto (Bld) [#/Vol]217 10*3/kO671-894KvkqjlfrsMemorial HospitalPotassium [Moles/volume] in Serum or PlasmaOrdered By: Williams Coronado on 11-24-2022 Potassium [Moles/Vol]4.3 mmol/L3.5-5.1FFulton County Health CenterProtein Auto test strip (U) [Mass/Vol]Ordered By: Williams Coronado on 09-78-0358Oobxdyh (U) [Mass/Vol]NegativeNegativeMemorial HospitalProtein [Mass/volume] in Serum or PlasmaOrdered By: Williams Coronado on 30-70-0400Lqchaog [Mass/Vol]7.2 g/dL6.4-8.9Memorial HospitalRBC Auto (Bld) [#/Vol] Ordered By: Williams Coronado on 59-38-8551BQD (Bld) [#/Vol]4.38 10*6/uL3.90-5.60 [facility] Centererum or plasma albumin/globulin mass ratio Ordered By: Williams Coronado on 82-50-6985Vcqaifm/Globulin [Mass ratio]1.4 {ratio} [facility] Centererum or plasma anion gap determinationOrdered By: Williams Coronado on 30-81-8698Jmhsz gap [Moles/Vol]13.6 mmol/L6.0-15.0 [facility] Medical Centerodium [Moles/volume] in Serum or PlasmaOrdered By: Williams Coronado on 21-44-1640Yfjgdr [Moles/Vol]138 mmol/Q803-988FxuflorptCincinnati Children's Hospital Medical Centerpecific gravity Auto test strip (U) [Rel density]Ordered By: Williams Coronado on 13-83-3092Vujggrfl gravity (U) [Rel density]1.015 1.001-1.030[facility] Medical Centerquamous epithelial cells detection in urine sediment by light microscopyOrdered By: Williams Coronado on 11-24-2022 Epithelial cells.squamous LM Ql (Urine sed)None seen [HPF]0-2FFulton County Health CenterThyrotropin [Units/volume] in Serum or PlasmaOrdered By: Williams Coronado on 27-20-2268WVM Qn2.20 m[IU]/L0.45-5.33[facility] Thyroxine (T4) free [Mass/volume] in Serum or PlasmaOrdered By: Williams Coronado on 61-33-9471Vwtk T4 [Mass/Vol]0.81 ng/dL0.61-1.12Memorial HospitalUrea nitrogen [Mass/volume] in Serum or PlasmaOrdered By: Williams Coronado on 02-89-7953Zgoe nitrogen [Mass/Vol]13 mg/dL7-25Memorial HospitalUrine bacteria detection by automated methodOrdered By: Williams Coronado on 78-55-8876Ppiljtun Auto Ql (U)None seenNone SeenMemorial HospitalUrine clarity by refractometry automatedOrdered By: Williams Coronado on 04-24-8522Dncbxyv Refractometry automated (U)ClearCleWadsworth-Rittman HospitalUrine glucose measurement by automated test strip (mass/volume) Ordered By: Williams Coronado on 54-20-5343Bplkssi Auto test strip (U) [Mass/Vol] Normal mg/dLNoWayne HealthCare Main CampusUrine hemoglobin detection by automated test stripOrdered By: Williams Coronado on 24-72-3062Rcprsmsuaa Auto test strip Ql (U)NegativeNegMercy Health Springfield Regional Medical CenterUrine leukocyte esterase detection by automated test stripOrdered By: Williams Coronado on 87-43-8637Tvwbthqjq esterase Auto test strip Ql (U)NegativeNegMercy Health Springfield Regional Medical CenterUrobilinogen Auto test strip (U) [Mass/Vol]Ordered By: Williams Coronado on 88-77-0254Gseybvpfjxgs (U) [Mass/Vol]Normal mg/dLKeenan Private HospitalWBC Auto (Bld) [#/Vol]Ordered By: Williams Coronado on 90-48-7204JQD (Bld) [#/Vol]8.5 10*3/uL4.1-10.5FFulton County Health CenterpH Auto test strip (U)Ordered By: Williams Coronado on 77-15-3752lA (U)5.5 [pH]5.0-9.0Memorial HospitalANA by IFAon 10-18-2022 Antinuclear Antibodies, IFAPositiveRegency Hospital CompanyComment on above:Result Comment: Negative <1:80 Borderline 1:80 Positive >1:80Performed By: #### CVDTBH #### [facility] [address] [place] [address] Dr. Kyra Elias White HospitalComment on above: Performed By: #### CVDTBH #### [facility] [address] [address] [address] Kyra Chandlerromere Pattern1:320Critically highPremier Health Upper [facility] Center Comment on above:Result Comment: ICAP nomenclature: AC-3Performed By: #### CVDTBH #### [facility] [address] [address] [address] Kyra PatelHomogeneous Pattern1:160Critically highPremier Health Upper Valley Medical Center Comment on above:Result Comment: ICAP nomenclature: AC-1Performed By: #### CVDTBH #### [facility] [address] [address] [address] Kyra PatelMidbody PatternNormSt. Anthony's HospitalComment on above: Performed By: #### CVDTBH #### [facility] [address] [address] [address] Kyra PatelNote:CommentNoThe Bellevue HospitalComment on above:Result Comment: For more information [...] titers Nucleosomes, Histones Drug-induced SLE Speckled Sm, REINSURANCE CLERK, SCL-70, SLE,MCTD,PSS (diffuse form), SS-A/SS-B Sjogrens Nucleolar SCL-70, PM- 1/SCL High titers Scleroderma, PM/DM Centromere Centromere PSS (limited form)w/Crest syndrome variable Nuclear Dot Sp100,v49-nqfvyr Primary Biliary Cirrhosis Nuclear GP210, Primary Biliary Cirrhosis Membrane aida A,B,C Performed By: #### CVDTBH #### [facility] [address] [place] [address] Dr. Kyra Perry Dot PatternNoFayette County Memorial Hospital on above: Performed By: #### CVDTBH #### [facility] [address] [place] [address] Dr. Kyra Perry Membrane PatternNoFayette County Memorial Hospital on above:Performed By: #### CVDTBH #### [facility] [address] [place] [address] Dr. Kyra Crawleyolar PatternNormalThe Sophy HospitalComment on above: Performed By: #### CVDTBH #### [facility] [address] [address] [address] Kyra Arevalo White HospitalComment on above:Performed By: #### CVDTBH #### [facility] [address] [address] [address] Kyra Talleykled White HospitalComment on above: Performed By: #### CVDTBH #### [facility] [address] [place] [address] Dr. Kyra PatelSpdelorisle Apparatus White HospitalComment on above:Performed By: #### CVDTBH #### [facility] [address] [place] [address] Dr. Kyra PatelRHEUMATOID FACTORon 64-02-1935UA Latex Turbid.10.2 IU/mLNormal <14.0The [facility] ClinicComselect specialty hospital on above:Performed By: #### CVDTBH #### [facility] [address] [place] [address] Dr. Kyra Montesinos AUTO DIFFon 09-13-7080HRSK #0.1 103/ulNormal0.0-0.1[facility] Medical CenterComment on above:Performed By: #### CBC #### [facility] [address] [place] [address] Dr. Krya PatelBasophils/100 WBC (Bld)0.9 %Normal0.2-2.0The [facility] Comment on above:Performed By: #### CBC #### [facility] [address] [place] [address] Dr. Kyra Francis #0.1 103/ulNormal0.0-0.7The [facility] on above: Performed By: #### CBC #### [facility] [address] [place] [address] Dr. Kyra Davalososinophils/100 WBC (Bld)1.4 %Normal0.9-7.0The [facility] Comment on above:Performed By: #### CBC #### [facility] [address] [place] [address] Dr. Kyra Davalosrythrocyte distribution width (RBC) [Ratio]14.0 %Iuoblf60.0-15.0 [facility] Medical CenterComselect specialty hospital on above:Performed By: #### CBC #### [facility] [address] [place] [address] Dr. Kyra PatelHematocrit (Bld) [Volume fraction]40.9 %Critically low42.0-54.0 The [facility] ClinicComselect specialty hospital on above:Performed By: #### CBC #### [facility] [address] [place] [address] Dr. Kyra PatelHemoglobin (Bld) [Mass/Vol]14.2 g/qDZwxein75.0-18.0[facility] Medical CenterComment on above:Performed By: #### CBC #### [facility] [address] [place] [address] Dr. Kyra Andrade #0.03 10e3/ulNormal0.00-0.03The [facility] ClinicComment on above:Performed By: #### CBC #### [facility] [address] [place] [address] Dr. Kyra Andrade %0.4 %Normal0.0-0.5The [facility] on above: Performed By: #### CBC #### [facility] [address] [place] [address] Dr. Kyra NevarezH #2.5 103/ulNormal1.2-3.8The [facility] ClinicComment on above:Performed By: #### CBC #### [facility] [address] [place] [address] Dr. Kyra Galindomphocytes/100 WBC (Bld)30.8 %Aycwjf25.5-60.0The [facility] ClinicComment on above:Performed By: #### CBC #### [facility] [address] [place] [address] Dr. Kyra BenavidezUAL DIFF REQNONormalThe [facility] ClinicComment on above: Performed By: #### CBC #### [facility] [address] [place] [address] Dr. Kyra Mckeon (RBC) [Entitic mass]34.7 pgCritically high25.9-34.0The [facility] ClinicComment on above:Performed By: #### CBC #### [facility] [address] [place] [address] Dr. Kyra Mckeon (RBC) [Mass/Vol]34.7 g/sKXumlbv51.9-35.2The [facility] ClinicComment on above:Performed By: #### CBC #### [facility] [address] [place] [address] Dr. Kyra Mckeon (RBC) [Entitic vol]100.0 fLCritically high80.0-94.0The [facility] ClinicComment on above:Performed By: #### CBC #### [facility] [address] [place] [address] Dr. Kyra Del Angel #0.8 103/ulNormal0.3-0.8The [facility] ClinicComment on above:Performed By: #### CBC #### [facility] [address] [place] [address] Dr. Kyra Crabtreeocytes/100 WBC (Bld)9.5 %Normal1.7-12.0The [facility] Comment on above:Performed By: #### CBC #### [facility] [address] [place] [address] Dr. Kyra Patterson #4.6 103/ulNormal1.4-6.5The [facility] ClinicComment on above:Performed By: #### CBC #### [facility] [address] [place] [address] Dr. Kyra Moonutrophils/100 WBC (Bld)57.0 %Ijhzub41.0-75.0The [facility] ClinicComment on above:Performed By: #### CBC #### [facility] [address] [place] [address] Dr. Kyra Arnoldlet mean volume (Bld) [Entitic vol]9.4 fLCritically low 9.5-13.5The [facility] ClinicComment on above:Performed By: #### CBC #### [facility] Laboratory [address] [place] [address] Dr. Kyra PatelPLT197 103/wrPfrpqy572-510Wuq [facility] ClinicComment on above: Performed By: #### CBC #### [facility] [address] [place] [address] Dr. Kyra PatelRBC4.09 106/ulCritically low4.70-6.10The [facility] ClinicComment on above:Performed By: #### CBC #### [facility] [address] [place] [address] Dr. Kyra PatelWBC8.1 103/ulNormal4.0-11.0The [facility] ClinicComment on above: Performed By: #### CBC #### [facility] [address] [place] [address] Dr. Kyra Delgado 14(COMP METB)on [id number] [Mass/Vol]3.6 g/dLNormal 3.4-5.0The [facility] ClinicComment on above:Performed By: #### CMP, T4, TSH #### [facility] [address] [place] [address] Dr. Kyra PatelAlbumin/Globulin [Mass ratio]1.0 {ratio}NormalThe [facility] on above:Performed By: #### CMP, T4, TSH #### [facility] [address] [place] [address] Dr. Kyra Mcmahon [Catalytic activity/Vol]86 U/NPcvkcv58-547Uar [facility] ClinicComment on above:Performed By: #### CMP, T4, TSH #### [facility] [address] [place] [address] Dr. Kyra Ocampo [Catalytic activity/Vol]60 U/DGzewhd37-14Dtz [facility] ClinicComment on above:Performed By: #### CMP, T4, TSH #### [facility] [address] [place] [address] Dr. Kyra Bainon gap [Moles/Vol]15.0 mmol/LNormalPrem[facility] Comment on above:Performed By: #### CMP, T4, TSH #### [facility] [address] [address] [address] Kyra PatelAST [Catalytic activity/Vol]44 U/LCritically qrqe63-28RgmPremier Health Upper Valley Medical CenterComment on above:Performed By: #### CMP, T4, TSH #### [facility] [address] [address] [address] Kyra PatelBilirubin [Mass/Vol]0.4 mg/dLNormal0.2-1.0[facility] Comment on above:Performed By: #### CMP, T4, TSH #### [facility] [address] [place] [address] Dr. Kyra PatelCalcium [Mass/Vol]8.7 mg/dLNormal8.5-10.1[facility] Comment on above:Performed By: #### CMP, T4, TSH #### [facility] [address] [place] [address] Dr. Kyra PatelChloride [Moles/Vol]103 mmol/RCbddas38-605DkaPremier Health Upper Valley Medical Center Comment on above:Performed By: #### CMP, T4, TSH #### [facility] [address] [place] [address] Dr. Kyra PatelCO2 [Moles/Vol]24.2 mmol/DRdkidn34.0-32.0The [facility] Comment on above:Performed By: #### CMP, T4, TSH #### [facility] [address] [place] [address] Dr. Kyra PatelCreatinine [Mass/Vol]0.94 mg/dLNormal0.70-1.30The [facility] ClinicComment on above:Performed By: #### CMP, T4, TSH #### [facility] [address] [place] [address] Dr. Kyra DavalosGFR-AF MALAGASY>60Normal>=60The [facility] ClinicComment on above:Performed By: #### CMP, T4, TSH #### [facility] [address] [address] [address] Kyra DavalosGFR-NON AF MALAGASY>60Normal>=60The [facility] ClinicComment on above:Performed By: #### CMP, T4, TSH #### [facility] [address] [address] [address] Kyra PatelGlobulin (S) [Mass/Vol]3.5 g/dLNormSt. Anthony's HospitalComment on above:Performed By: #### CMP, T4, TSH #### [facility] [address] [address] [address] Kyra PatelGlucose [Mass/Vol]96 mg/tGQdbbfa47-268EodPremier Health Upper [facility] Center Comment on above:Performed By: #### CMP, T4, TSH #### [facility] [address] [place] [address] Dr. Kyra PatelPotassium [Moles/Vol]4.2 mmol/LNormal3.5-5.1The [facility] Comment on above:Performed By: #### CMP, T4, TSH #### [facility] [address] [address] [address] Kyra PatelProtein [Mass/Vol]7.1 g/dLNormal6.4-8.2[facility] Comment on above:Performed By: #### CMP, T4, TSH #### [facility] [address] [address] [address] Kyra PatelSodium [Moles/Vol]138 mmol/NNorrry016-047Une [facility] Comment on above:Performed By: #### CMP, T4, TSH #### [facility] [address] [address] [address] Kyra PatelUrea nitrogen [Mass/Vol]14.0 mg/dLNormal7.0-18.0The [facility] ClinicComment on above:Performed By: #### CMP, T4, TSH #### [facility] [address] [address] [address] Kyra Iraheta nitrogen/Creatinine [Mass ratio]14.9 mg/mgNormalThe [facility] ClinicComment on above:Performed By: #### CMP, T4, TSH #### [facility] [address] [place] [address] Dr. Kyra PatelSELuciano RATE WESTERGRENon [id number] RATE4 mm/hrNormal<=15The [facility] ClinicComselect specialty hospital on above:Performed By: #### SEDR #### [facility] [address] [place] [address] Dr. Kyra PatelT4on [id number] [Mass/Vol]6.20 ug/dLNormal4.50-12.10The [facility] ClinicComment on above:Performed By: #### CMP, T4, TSH #### [facility] [address] [place] [address] Dr. Kyra PatelTSHoedmund 04-16-6259VNY8.451 uIU/mLNormal0.358-3.740The [facility] ClinicComment on above:Performed By: #### CMP, T4, TSH #### [facility] [address] [place] [address] Dr. Kyra PatelCoviluciano-19 PCR ([facility])on [id number]-CoV-2 (COVID-19) RNA COLBY+probe Ql (Unsp spec)Not detectedNormalNOT DETECTEDThe [facility] Comment on above:Result Comment: This test is not yet approved or cleared by the [place] FDA. When there are no FDA-approved or cleared tests available, and other criteria are met, FDA can make tests available under an emergency access mechanism called an Emergency Use Authorization (EUA). The EUA for this test is supported by the [place] of Health and Human Service's (HHS's) declaration [...] consistent with SARS-CoV-2.Performed By: #### CVDTBH #### [facility] [address] [place] [address] Dr. Kyra PatelCovid-19 PCR ([facility])on [id number]-CoV-2 (COVID-19) RNA COLBY+probe Ql (Unsp spec)DetectedCritically abnormalNOT DETECTEDThe [facility] ClinicComment on above:Result Comment: This test is not yet approved or cleared by the [place] FDA. When there are no FDA-approved or cleared tests available, and other criteria are met, FDA can make tests available under an emergency access mechanism called an Emergency Use Authorization (EUA). The EUA for this test is supported by the [employer] of Health and Human Service's (HHS's) declaration [...] be used). Performed By: #### CVDTBH #### [facility] [address] [place] [address] Dr. Kyra Montesinos AUTO DIFFon [id number] #0.1 103/ulNormal0.0-0.1The [facility] ClinicComment on above:Performed By: #### CBC #### [facility] [address] [place] [address] Dr. Kyra PatelBasophils/100 WBC (Bld)0.8 %Normal0.2-2.0The [facility] Comment on above:Performed By: #### CBC #### [facility] [address] [place] [address] Dr. Kyra Francis #0.2 103/ulNormal0.0-0.7The [facility] ClinicComment on above: Performed By: #### CBC #### [facility] [address] [address] [address] Kyra Davalososinophils/100 WBC (Bld)2.1 %Normal0.9-7.0The [facility] Comment on above:Performed By: #### CBC #### [facility] [address] [place] [address] Dr. Kyra Davalosrythrocyte distribution width (RBC) [Ratio]13.7 %Jzmizv89.0-15.0 The [facility] ClinicComment on above:Performed By: #### CBC #### [facility] [address] [place] [address] Dr. Kyra PatelHematocrit (Bld) [Volume fraction]43.1 %Mrqiwj05.0-54.0The [facility] ClinicComment on above:Performed By: #### CBC #### [facility] [address] [place] [address] Dr. Kyra PatelHemoglobin (Bld) [Mass/Vol]14.7 g/wMXxnzzt14.0-18.0The [facility] ClinicComment on above:Performed By: #### CBC #### [facility] [address] [place] [address] Dr. Kyra Andrade #0.05 10e3/ulCritically high0.00-0.03The [facility] Comment on above:Performed By: #### CBC #### [facility] [address] [place] [address] Dr. Kyra Andrade %0.6 %Critically high0.0-0.5The [facility] ClinicComment on above:Performed By: #### CBC #### [facility] [address] [place] [address] Dr. Kyra NevarzeH #2.4 103/ulNormal1.2-3.8The [facility] ClinicComment on above:Performed By: #### CBC #### [facility] [address] [place] [address] Dr. Kyra Galindomphocytes/100 WBC (Bld)27.4 %Pahrne44.5-60.0The [facility] ClinicComment on above:Performed By: #### CBC #### [facility] [address] [address] [address] Kyra Reyes DIFF REQNONormalThe [facility] ClinicComment on above: Performed By: #### CBC #### [facility] [address] [place] [address] Dr. Kyra Mckeon (RBC) [Entitic mass]34.0 yhDjeddc11.9-34.0The [facility] ClinicComment on above:Performed By: #### CBC #### [facility] [address] [place] [address] Dr. Kyra Mckeon (RBC) [Mass/Vol]34.1 g/uHOalejg14.9-35.2The [facility] ClinicComment on above:Performed By: #### CBC #### [facility] [address] [place] [address] Dr. Kyra MckeonV (RBC) [Entitic vol]99.8 fLCritically high80.0-94.0The [facility] ClinicComment on above:Performed By: #### CBC #### [facility] [address] [place] [address] Dr. Kyra Del Angel #0.9 103/ulCritically high0.3-0.8ThCleveland Clinic [facility] Comment on above:Performed By: #### CBC #### [facility] [address] [place] [address] Dr. Kyra Crabtreeocytes/100 WBC (Bld)9.8 %Normal1.7-12.0[facility] Comment on above:Performed By: #### CBC #### [facility] [address] [place] [address] Dr. Kyra Patterson #5.3 103/ulNormal1.4-6.5The [facility] Centerment on above:Performed By: #### CBC #### [facility] [address] [place] [address] Dr. Kyra Moonutrophils/100 WBC (Bld)59.3 %Whvbjh92.0-75.0The [facility] HospitalComment on above:Performed By: #### CBC #### [facility] [address] [address] [address] Kyra Becerril mean volume (Bld) [Entitic vol]9.8 fLNormal9.5-13.5The [facility] on above:Performed By: #### CBC #### [facility] [address] [address] [address] Kyra PatelPLT195 103/vqNrkkkv539-805Scd [facility] on above: Performed By: #### CBC #### [facility] [address] [address] [address] Kyra PatelRBC4.32 106/ulCritically low4.70-6.10The [facility] on above:Performed By: #### CBC #### [facility] [address] [place] [address] Dr. Kyra PatelWBC8.9 103/ulNormal4.0-11.0The [facility] on above: Performed By: #### CBC #### [facility] [address] [place] [address] Dr. Kyra PatelDIRECT LDLon [id number] in LDL [Mass/Vol]135 mg/dL NormalTrumbull Memorial Hospital on above:Performed By: #### DLDL, CMP, LIPID #### [facility] [address] [place] [address] Dr. Kyra PatelDLDL NORMALSEE [facility] MemorialComselect specialty hospital on above: Result Comment: <100 mg/dl OPTIMAL 100 - 129 mg/dl NEAR OR ABOVE OPTIMAL 130 - 159 mg/dl BORDERLINE HIGH 160 - 189 mg/dl HIGH >190 mg/dl VERY HIGHPerformed By: #### DLDL, CMP, LIPID #### [facility] [address] [place] [address] Dr. Kyra PatelLIPID PROFILEon [id number]-HDL RATIO NORMSEE [facility] on above:Result Comment: 3.3 - 4.4 LOW RISK 4.4 - 7.1 AVERAGE RISK 7.1 - 11.0 MODERATE RISK >11.0 HIGH RISKPerformed By: #### DLDL, CMP, LIPID #### [facility] [address] [place] [address] Dr. Kyra PatelCholesterol [Mass/Vol]277 mg/dLCritically high<=200The [facility] on above:Performed By: #### DLDL, CMP, LIPID #### [facility] [address] [place] [address] Dr. Kyra PatelCholesterol in HDL [Mass/Vol]36 mg/dLCritically fwj52-54Ifj [facility] ClinicComment on above:Performed By: #### DLDL, CMP, LIPID #### [facility] [address] [place] [address] Dr. Kyra PatelCholesterol in LDL [Mass/Vol]81.6 mg/dLMercy Health Lorain HospitalComment on above:Performed By: #### DLDL, CMP, LIPID #### [facility] [address] [place] [address] Dr. Kyra Leeesterandrew.total/Cholesterol in HDL [Mass ratio]7.7 {ratio} NormalPremier Health Upper Valley Medical CenterComselect specialty hospital on above:Performed By: #### DLDL, CMP, LIPID #### [facility] [address] [place] [address] Dr. Kyra PatelHDL NORMAL> or = 60 mg/dl - LOW CARDIOVASCULAR RISK <40 mg/dl - HIGH CARDIOVASCULAR RISKMercy Health Lorain HospitalComselect specialty hospital on above:Performed By: #### DLDL, CMP, LIPID #### [facility] [address] [place] [address] Dr. Kyra Barrios CALC NORMALSEE BELOWMercy Health Lorain HospitalComselect specialty hospital on above:Result Comment: <100 mg/dl OPTIMAL 100 - 129 mg/dl NEAR OR ABOVE OPTIMAL 130 - 159 mg/dl BORDERLINE HIGH 160 - 189 mg/dl HIGH >190 mg/dl VERY HIGH Performed By: #### DLDL, CMP, LIPID #### [facility] [address] [place] [address] Dr. Yilan ChangTriglyceride [Mass/Vol]797 mg/dLCritically high<=150The [facility] Centerment on above:Performed By: #### DLDL, CMP, LIPID #### [facility] [address] [address] [address] Kyra PatelVLDL GZOB504.4 mg/dLNormalThe [facility] ClinicComment on above: Performed By: #### DLDL, CMP, LIPID #### [facility] [address] [address] [address] Kyra PatelPROF 14(COMP METB)on [id number] [Mass/Vol]3.5 g/dLNormal 3.4-5.0The [facility] Centerment on above:Performed By: #### DLDL, CMP, LIPID #### [facility] [address] [place] [address] Dr. Kyra PatelAlbumin/Globulin [Mass ratio]0.9 {ratio}NormalThe [facility] ClinicComment on above:Performed By: #### DLDL, CMP, LIPID #### [facility] [address] [place] [address] Dr. Kyra Mcmahon [Catalytic activity/Vol]78 U/OSjtfwn11-562Slu [facility] on above:Performed By: #### DLDL, CMP, LIPID #### [facility] [address] [place] [address] Dr. Kyra Ocampo [Catalytic activity/Vol]50 U/WRotpom64-84Alx [facility] Centerment on above:Performed By: #### DLDL, CMP, LIPID #### [facility] [address] [place] [address] Dr. Kyra Jacobs gap [Moles/Vol]13.7 mmol/LNormalThe [facility] on above:Performed By: #### DLDL, CMP, LIPID #### [facility] [address] [place] [address] Dr. Kyra Angel [Catalytic activity/Vol]30 U/TOkqxdg10-69Dnz [facility] Centerment on above:Performed By: #### DLDL, CMP, LIPID #### [facility] [address] [place] [address] Dr. Kyra PatelBilirubin [Mass/Vol]0.3 mg/dLNormal0.2-1.0[facility] Comment on above:Performed By: #### DLDL, CMP, LIPID #### [facility] [address] [place] [address] Dr. Kyra PatelCalcium [Mass/Vol]8.6 mg/dLNormal8.5-10.1[facility] Comment on above:Performed By: #### DLDL, CMP, LIPID #### [facility] [address] [place] [address] Dr. Kyra PatelChloride [Moles/Vol]104 mmol/OGrqtwr73-103VozPremier Health [facility] Center Comment on above:Performed By: #### DLDL, CMP, LIPID #### [facility] [address] [place] [address] Dr. Kyra PatelCO2 [Moles/Vol]23.8 mmol/EElppsv80.0-32.0[facility] Comment on above:Performed By: #### DLDL, CMP, LIPID #### [facility] [address] [place] [address] Dr. Kyra PatelCreatinine [Mass/Vol]1.02 mg/dLNormal0.70-1.30The [facility] ClinicComment on above:Performed By: #### DLDL, CMP, LIPID #### [facility] [address] [place] [address] Dr. Kyra DavalosGFR-AF MALAGASY>60Normal>=60The [facility] ClinicComment on above:Performed By: #### DLDL, CMP, LIPID #### [facility] [address] [place] [address] Dr. Kyra DavalosGFR-NON AF MALAGASY>60Normal>=60The [facility] ClinicComment on above:Performed By: #### DLDL, CMP, LIPID #### [facility] [address] [place] [address] Dr. Kyra PatelGlobulin (S) [Mass/Vol]3.7 g/dLNormSt. Anthony's HospitalComment on above:Performed By: #### DLDL, CMP, LIPID #### [facility] [address] [address] [address] Kyra PatelGlucose [Mass/Vol]113 mg/dLCritically ofrx88-678Iom [facility] ClinicComment on above:Performed By: #### DLDL, CMP, LIPID #### [facility] [address] [address] [address] Kyra PatelPotassium [Moles/Vol]3.5 mmol/LNormal3.5-5.1The [facility] Comment on above:Performed By: #### DLDL, CMP, LIPID #### [facility] [address] [address] [address] Kyra PatelProtein [Mass/Vol]7.2 g/dLNormal6.4-8.2[facility] Comment on above:Performed By: #### DLDL, CMP, LIPID #### [facility] [address] [address] [address] Kyra PatelSodium [Moles/Vol]138 mmol/VLdmidk969-097Gxb [facility] Comment on above:Performed By: #### DLDL, CMP, LIPID #### [facility] [address] [address] [address] Kyra PatelUrea nitrogen [Mass/Vol]12.0 mg/dLNormal7.0-18.0The [facility] ClinicComment on above:Performed By: #### DLDL, CMP, LIPID #### [facility] [address] [place] [address] Dr. Kyra PatelUrea nitrogen/Creatinine [Mass ratio]11.8 mg/mgNoThe [facility] HospitalComment on above:Performed By: #### DLDL, CMP, LIPID #### [facility] [address] [place] [address] Dr. Kyra Patel Vital Signs Date TimeVital SignValuePerforming XkxboftfcEzfozvny45-81-5700 09:140400Body kmiarv536.88 cmPamela Emmanuel PHARMACY DISTRICT MANAGER-C Work Phone: [phone] [place], [place] 9002809-04-2025 09:14-0400 Body mass index (BMI) [Ratio]29.2 kg/t4Rredms Emmanuel [employer] MANAGER-C Work Phone: [phone] [place], [place] 9002809-04-2025 09:14-0400 Body rjusnh97.97 kgPamela Emmanuel PHARMACY DISTRICT MANAGER-C Work Phone: [phone] [place], [place] 9002809-04-2025 09:14-0400 Diastolic blood efcvgyjx43 mm[Hg]Agustina Emmanuel [employer]Y DISTRICT MANAGER-C Work Phone: [phone]09-04-2025 09:14-0400 Heart rate79 /minPamela Emmanuel PHARMACY DISTRICT MANAGER-C Work Phone: [phone] [place], [place] 2342209-04-2025 09:14-0400 Respiratory rate20 /minPamela Emmanuel PHARMACY DISTRICT MANAGER-C Work Phone: [phone] [place], [place] 2342209-04-2025 09:14-0400 Systolic blood gkpxspgy165 mm[Hg]Agustina Emmanuel [employer]ARMACY DISTRICT MANAGER-C Work Phone: [phone] [place], [place] 2342208-13-2025 09:26-0400 Body fdettt815.88 cmPamela Emmanuel PHARMACY DISTRICT MANAGER-C Work Phone: [phone] [place], [place] 2342208-13-2025 09:26-0400 Body mass index (BMI) [Ratio]28.3 kg/n0Wrbqfg Emmanuel [employer] MANAGER-[employer] Work Phone: [phone] [place], [place] 9002808-13-2025 09:26-0400 Body wnenbr91.8 kgPamela Emmanuel PHARMACY DISTRICT MANAGER-C Work Phone: [phone] [place], [place] 2342208-13-2025 09:26-0400 Diastolic blood yugzagsb92 mm[Hg]Agustina Emmanuel [employer]Y DISTRICT MANAGER-C Work Phone: [phone]08-13-2025 09:26-0400 Heart rate55 /minPamela Emmanuel PHARMACY DISTRICT MANAGER-C Work Phone: [phone]08-13-2025 09:26-0400 SaO2% (BldA) [Mass fraction]99 %Agustina Emmanuel [employer]Y DISTRICT MANAGER-C Work Phone: [phone]08-13-2025 09:26-0400 Systolic blood ajfuomub666 mm[Hg]Agustina Emmanuel [employer]ARMACY DISTRICT MANAGER-C Work Phone: [phone]07-02-2025 08:41-0400 Diastolic blood grfvfidr14 mm[Hg]Agustina Emamnuel PHARMACY DISTRICT MANAGER-C Work Phone: [phone]07-02-2025 08:41-0400 Heart rate72 /minPamela Emmanuel PHARMACY DISTRICT MANAGER-C Work Phone: [phone] [place], [place] 2342207-02-2025 08:41-0400 SaO2% (BldA) [Mass fraction]98 %Agustina Emmanuel [employer]ACY DISTRICT MANAGER-C Work Phone: [phone]07-02-2025 08:41-0400 Systolic blood pyqpfaoe309 mm[Hg]Agustina Emmanuel [employer]ARMACY DISTRICT MANAGER-C Work Phone: [phone] [place], [place] 2342207-02-2025 08:39-0400 Body .88 cmPamela Emmanuel PHARMACY DISTRICT MANAGER-C Work Phone: [phone] [place], [place] 2342207-02-2025 08:39-0400 Body mass index (BMI) [Ratio]28.2 kg/v8Bvzitd Emmanuel [employer]Y [employer] MANAGER-[employer] Work Phone: [phone]07-02-2025 08:39-0400 Body ccazgy33.34 kgPamela Emmanuel PHARMACY DISTRICT MANAGER-C Work Phone: [phone]05-22-2025 08:52-0400 Diastolic blood eiaeyplu49 mm[Hg]Agustina Emmanuel [employer]ARMACY DISTRICT MANAGER-C Work Phone: [phone])[address]05-22-2025 08:52-0400 Systolic blood mm[Hg]Agustina Emmanuel [employer]ACY DISTRICT MANAGER-C Work Phone: [phone]05-22-2025 08:49-0400 Body nclagy745.88 cmPamela Emmanuel PHARMACY DISTRICT MANAGER-C Work Phone: [phone]05-22-2025 08:49-0400 Body mass index (BMI) [Ratio]28.2 kg/x7EteohqAgustina Bermanmer PHARMACY DISTRICT MANAGER-C Work Phone: [phone]05-22-2025 08:49-0400 Body lykvhiyyyfk21.9 [degF]Agustina Emmanuel PHARMACY DISTRICT MANAGER-C Work Phone: [phone]05-22-2025 08:49-0400 Body kixmak77.34 kgIsabela Emmanuel PHARMACY DISTRICT MANAGER-C Work Phone: [phone]05-22-2025 08:49-0400 Heart rate82 /minPagala Emmanuel PHARMACY DISTRICT MANAGER-C Work Phone: [phone] [place], [place] 2342205-22-2025 08:49-0400 Respiratory rate20 /minIsabela Emmanuel PHARMACY DISTRICT MANAGER-C Work Phone: [phone]1990[facility]05-22-2025 08:49-0400 SaO2% (BldA) [Mass fraction]97 %Agustina Bermanmer [employer]ARMACY DISTRICT MANAGER-C Work Phone: [phone] [place], [place] 2342201-07-2025 08:10-0500 Blood Pressure LocationMichael NILL [phone]-HqhsjC[facility] [place] 08-01-2024 08:10-0500Diastolic blood apqsmati80 mm[Hg]Silvestre NILL [phone]-GntgzC[facility] [place] 08-01-2024 08:10-0500Heart rate89 /minMichael NILL [phone]-SnorcAdams [facility] [place] 08-01-2024 08:10-0500Respiratory rate16 /minMichael NILL [phone]-TkzlmC[facility] [place] 08-01-2024 08:10-0500Systolic blood xujolecn758 mm[Hg]Silvestre NILL [phone]-RdhnvCleveland Clinic [facility] [place] 06-15-2024 09:01-0500Body ovcjjs997.88 cmPnishant Bermanmer PHARMACY DISTRICT MANAGER-C Work Phone: [facility]11-21-2024 09:01-0500 Body mass index (BMI) [Ratio]27.8 kg/s9Pqmyed Emmanuel PHARMACY DISTRICT MANAGER-C Work Phone: [facility]11-21-2024 09:01-0500 Body iquoryigjva18.1 [degF]Agustina Bermanmer PHARMACY DISTRICT MANAGER-C Work Phone: [phone])[address]11-21-2024 09:01-0500 Body xukrca86.98 kgPafazal Emmanuel PHARMACY DISTRICT MANAGER-C Work Phone: [phone])[address] [place], [place] 2342211-21-2024 09:01-0500 Diastolic blood yqchoxvr12 mm[Hg]Agustina Bermanmer PHARMACY DISTRICT MANAGER-C Work Phone: 1(789)483-[address] [place], [place] 9002811-21-2024 09:01-0500 Heart rate84 /minIsabela Emmanuel PHARMACY DISTRICT MANAGER-C Work Phone: [phone])[address] [place], [place] 2342211-21-2024 09:01-0500 Respiratory rate20 /minAgustina Emmanuel PHARMACY DISTRICT MANAGER-C Work Phone: [phone])[address] [place], [place] 2342211-21-2024 09:01-0500 SaO2% (BldA) [Mass fraction]97 %Agustina Bermanmer PHARMACY DISTRICT MANAGER-C Work Phone: 1(474)483-[address] [place], [place] 9002811-21-2024 09:01-0500 Systolic blood vizxllsf836 mm[Hg]Agustina Bermanmer PHARMACY DISTRICT MANAGER-C Work Phone: [phone])[address]08-01-2024 08:57-0400 Body oazzca658.88 cmNP-C Agustina Bermanmer Work Phone: 1(647)[address]08-01-2024 08:57-0400 Body mass index (BMI) [Ratio]28.5 kg/m2NP-C Agustina Emmanuel Work Phone: 1(074)629-[address] [place], [place] 9002808-01-2024 08:57-0400 Body .3 [degF]PHARMACY DISTRICT MANAGER-C Agustina Benitez Work Phone: 1(195)[address]08-01-2024 08:57-0400 Body ckbane78.25 kgNP-C Agustina Benitez Work Phone: 1(153)[address] [place], [place] 2342208-01-2024 08:57-0400 Diastolic blood aothtysu07 mm[Hg]PHARMACY DISTRICT MANAGER-C Agustina Bermanmer Work Phone: 1(702)[address]08-01-2024 08:57-0400 Heart rate81 /minNP-C Agustina Benitez Work Phone: 1(376)[address] [place], [place] 2342208-01-2024 08:57-0400 Respiratory rate20 /minNP-C Agustina Benitez Work Phone: 1(950)[address] [place], [place] 2342208-01-2024 08:57-0400 SaO2% (BldA) [Mass fraction]97 %PHARMACY DISTRICT MANAGER-C Agustina Benitez Work Phone: 1(360)[address] [place], [place] 2342208-01-2024 08:57-0400 Systolic blood uydjnket008 mm[Hg]PHARMACY DISTRICT MANAGER-C Agustina Benitez Work Phone: 1(243)[address] [place], [place] 2342205-30-2024 08:57-0400 Body zwtplo861.88 cmDO [employer] Work Phone: [phone])[address]05-30-2024 08:57-0400 Body mass index (BMI) [Ratio]28.7 kg/m2DO [employer] Work Phone: 1(066)[address]05-30-2024 08:57-0400 Body wckjczgqofj85.6 [degF]DO [employer] Work Phone: 1(882)[address]05-30-2024 08:57-0400 Body cshfyg06.16 kgDO [employer] Work Phone: 1(575)[address]05-30-2024 08:57-0400 Diastolic blood wtpdgziz10 mm[Hg]DO Keagan [employer] Work Phone: 1(628)[address]05-30-2024 08:57-0400 Heart rate92 /Delmi Oro Work Phone: 1(901)[address] [place], [place] 4605505-30-2024 08:57-0400 Respiratory rate20 /Delmi Oro Work Phone: 1(361)[address] [place], [place] 4605505-30-2024 08:57-0400 SaO2% (BldA) [Mass fraction]95 %DO Keagan Oro Work Phone: 1(612)[address] [place], [place] 4605505-30-2024 08:57-0400 Systolic blood pzkezuuu082 mm[Hg]DO Keagan Oro Work Phone: 1(624)[address] [place], [place] 4605503-26-2024 07:21-0400 Body zvufag112.88 cmDO Keagan Oro Work Phone: 1(495)[address] [place], [place] 4605503-26-2024 07:21-0400 Body mass index (BMI) [Ratio]27.1 kg/m2DO Keagan Oro Work Phone: 1(124)[address] [place], [place] 4605503-26-2024 07:21-0400 Body lynpsr50.71 kgDO Keagan Oro Work Phone: 1(346)[address] [place], [place] 4605503-26-2024 07:10-0400 Body ijwnltfhkva42.2 [degF]DO Keagan Oro Work Phone: 1(632)[address] [place], [place] 4605503-26-2024 07:10-0400 Diastolic blood ssamnoyw48 mm[Hg]DO Keagan Oro Work Phone: 1(496)[address] [place], [place] 4605503-26-2024 07:10-0400 Heart rate87 /Delmi Oro Work Phone: 2(003)[address] [place], [place] 4605503-26-2024 07:10-0400 Respiratory rate20 /Delmi Oro Work Phone: 1(363)[address] [place], [place] 4605503-26-2024 07:10-0400 Systolic blood qemcauka521 mm[Hg]DO Keagan Oro Work Phone: 1(112)[address] [place], [place] 4605512-28-2023 07:58-0500 Body hryrvw701.88 cmDO [facility] Work Phone: 1(973)[address] [place], [place] 4605512-28-2023 07:58-0500 Body mass index (BMI) [Ratio]27.1 kg/m2DO [facility] Work Phone: 1(035)[address] [place], [place] 4605512-28-2023 07:58-0500 Body itxoee78.71 kgDO [facility] Work Phone: 1(845)[address] [place], [place] 4605512-28-2023 07:45-0500 Diastolic blood mm[Hg]DO [facility] Work Phone: 1(389)[address] [place], [place] 4605512-28-2023 07:45-0500 Heart rate84 /minDO [facility] Work Phone: 1(196)[address] [place], [place] 4605512-28-2023 07:45-0500 Respiratory rate20 /minDO [facility] Work Phone: 1(939)[address] [place], [place] 4605512-28-2023 07:45-0500 Systolic blood yxptotdp794 mm[Hg]DO [facility] Work Phone: 1(707)[address] [place], [place] 4605512-13-2023 07:19-0500 Body vsdrvuwkbom21.8 [degF]DO [facility] Work Phone: 1(483)[address] [place], [place] 4605511-24-2023 12:47-0500 Diastolic blood ozxpqhpy49 mm[Hg]DO [facility] Work Phone: 1(686)[address] [place], [place] 4605511-24-2023 12:47-0500 Heart rate78 /minDO [facility] Work Phone: 1(464)[address] [place], [place] 4605511-24-2023 12:47-0500 Respiratory rate18 /minDO [facility] Work Phone: 1(309)[address] [place], [place] 4605511-24-2023 12:47-0500 SaO2% (BldA) [Mass fraction]98 %DO [facility] Work Phone: 1(388)[address] [place], [place] 4605511-24-2023 12:47-0500 Systolic blood halimdfa265 mm[Hg]DO Keagan Oro Work Phone: [facility]11-24-2023 05:13-0500 Body qtqqetwvjdc44 [degF]DO Keagan Oro Work Phone: [facility]11-24-2023 05:12-0500 Body .88 cmDO Keagan Oro Work Phone: [facility]11-24-2023 05:12-0500 Body llbpym51.71 kgDO Keagan Oro Work Phone: [facility]11-06-2023 09:45-0500 Body ftjatj901.88 cmTony Vegaban Other [employer] Other 08-28-2023 10:30-0400Body hcjgra552.88 cmTony Lieberman Other [employer] Other 08-28-2023 10:30-0400Body mass index (BMI) [Ratio] 26.58 kg/p8PaoosTony Lieberman Other [employer] Other 08-28-2023 10:30-0400Body sxdgbxmvsqa34.2 [degF]Tony Lieberman Other [employer] Other 08-28-2023 10:30-0400Body .91 kgTony Lieberman Other [employer] Other 08-28-2023 10:30-0400Diastolic blood gbuvprvv93 mm[Hg] Tony Lieberman Other [employer] Other 08-28-2023 10:30-0400Respiratory rate20 /minTony Lieberman Other [employer] Other 08-28-2023 10:30-9206NhS9% (BldA) [Mass fraction]96 % Tony [facility]berman Other [facility] [employer] Other 08-28-2023 10:30-0400Systolic blood pmrpnveg865 mm[Hg] Tony Lieberman Other [facility] [employer] Other Encounters Encounter DateEncounter TypeCare ProviderFacilityStart: 05-09-2025 End: 15-85-3307Wtjtpxy encounter procedureIris Mccall APRN-MRI [address] Closed Work Phone: Start: 05-09-2025 End: 13-41-4583vobhtbifkqFuwwuq Michaela Emmanuel PHARMACY DISTRICT MANAGER-C Work Phone: [facility] Work Phone: Start: 04-23-2025 End: 52-86-5654iimpbqgtfbFuikfa Michaela Emmanuel PHARMACY DISTRICT MANAGER-C Work Phone: [facility] Work Phone: Start: 04-23-2025 End: 68-43-2881Chlzyytozb RecurringNicole J Viviane DO-Physical Therapy [place] Work Phone: start: 03-29-2025 End: 47-53-8628zatsxzpnnsJqesdl Michaela Emmanuel PHARMACY DISTRICT MANAGER-C Work Phone: [facility] Work Phone: Start: 03-29-2025 End: 66-75-8015Parfexv encounter procedureIris Mccall ENGINE TEST CELL TECHNICIAN-[facility] [place] Work Phone: Start: 71-62-2032Lvfygtlfgc RecurringNicole J Viviane DO-Physical Therapy [place] Work Phone: start: 03-07-2025 End: 26-07-6552irkyiyvtzxIofeow Michaela Emmanuel PHARMACY DISTRICT MANAGER-C Work Phone: [facility] Work Phone: Start: 03-07-2025 End: 49-62-6943Hmyziye encounter procedureIris Mccall [facility] Work Phone: Start: 93-46-5853Rtfbdrdobr RecurringNicole J Viviane DO-Physical Therapy [place] Work Phone: start: 02-15-2025 End: 64-01-2359znjimjjqkxGwlogj Michaela Emmanuel PHARMACY DISTRICT MANAGER-C Work Phone: [facility] Work Phone: Start: 02-15-2025 End: 39-93-0509Sjflanw encounter procedureNicole [facility] Work Phone: Start: 01-24-2025 End: 23-48-2411mergkjnxnqLhcqvh Michaela Emmanuel PHARMACY DISTRICT MANAGER-C Work Phone: [facility] Work Phone: Start: 01-24-2025 End: 63-40-5980Zgcsfjk encounter procedureNicole [place] Viviane DO-[facility] [place] Work Phone: Start: 12-14-2024 End: 03-37-4385lzebcnglgvGmojuz Michaela Emmanuel PHARMACY DISTRICT MANAGER-C Work Phone: [facility] Work Phone: Start: 12-14-2024 End: 74-11-8775Wgqbviu encounter procedurePamela Emmanuel PHARMACY DISTRICT MANAGER-C Work Phone: [facility] Work Phone: Start: 89-31-9737Zlo-patient / Non-visitPamela Emmanuel PHARMACY DISTRICT MANAGER-C Work Phone: [facility] Work Phone: Start: 11-24-2024 End: 93-68-8185Ovxqlnz encounter procedurePafazal Benitez PHARMACY DISTRICT MANAGER-C Work Phone: [facility]-Respiratory Therapy Work Phone: Start: 11-24-2024 End: 64-09-4227bvzuwxhjgcUpboqa Michaela Bermanmer PHARMACY DISTRICT MANAGER-C Work Phone: [facility] Work Phone: Start: 09-19-2024 End: 34-33-0219Bikhrsv encounter procedurePagala Emmanuel PHARMACY DISTRICT MANAGER-C Work Phone: [facility]-Lab [address] Work Phone: Start: 09-19-2024 End: 71-84-8026frwqmdmgjoGlckoj Michaela Benitez PHARMACY DISTRICT MANAGER-C Work Phone: [facility] Work Phone: Start: 09-08-2024 End: 48-45-8182gaxufwjoooIoodxea R NILLFacility:[facility] Hospitaltart: 09-08-2024 End: 83-13-0205Aampzkq encounter procedureMichael R NILL [phone]-XjtrjC[facility] [place] Start: 08-23-2024 End: 90-64-3993durtjqhfiiKsrtynx R [facility]illBrown [facility] Work Phone: Start: 08-23-2024 End: 73-04-1800Wyfpkizo ReferredMichael Joaquín CHAVEZ Work Phone: [facility]-LAB Path Spec [place] HospStart: 08-23-2024 End: 52-37-3032zjpnmsfpocFajdpff R NILLFacility:CD:[id number]: 08-08-2024 End: 39-73-2753dmvdhsrdyhCQYCAHX Doctors Hospitaltart: 08-01-2024 End: 42-22-4144ftbhyfipepWQXVDG S EMMANUELFacility: Sukitart: 08-01-2024 End: 90-57-5413Urywdyz encounter procedureMichael R NILL [phone]-PbdsyCleveland Clinic Medina Hospital General Surgery [place] Start: 53-18-9951pwwblbxhlnRhgxivb NILLFacility: Sukitart: 06-15-2024 End: 20-14-2042dtjqxfkjzpNczfxb Michaela Benitez PHARMACY DISTRICT MANAGER-C Work Phone: [facility] Work Phone: Start: 06-15-2024 End: 40-45-5489Qvrafnj encounter procedurePafazal Benitez PHARMACY DISTRICT MANAGER-C Work Phone: [facility] Work Phone: Start: 47-99-3404jukioviocfRqfklkw NILLFacility: AlejandroueStart: 04-28-2024 End: 29-20-3625qycitxylejRF-C Agustinakaren Bermanmer Work Phone: [facility] Work Phone: Start: 04-28-2024 End: 85-76-6512Qvogphh encounter procedureNP-C Agustinakaren Benitez Work Phone: [facility]-CT Scan [place] Work Phone: Start: 02-24-2024 End: 61-71-0829vvcqdjctqiWB-C Agustinakaren Bermanmer Work Phone: [facility] Work Phone: Start: 02-24-2024 End: 72-40-8794Npqiewu encounter procedureNP-C Agustinakaren Bermanmer Work Phone: [facility] Work Phone: Start: 70-45-4184Rls-patient / Yip-gewttND-G Agustina Benitez Work Phone: [facility] Work Phone: Start: 01-17-2024 End: 35-82-3610osfvmgwgurOP-C Agustina Jennings Emmanuel Work Phone: [facility] Work Phone: Start: 01-17-2024 End: 53-73-2743Arqggjo encounter procedureNP-C Agustina Emmanuel Work Phone: [facility]-Electrodiagnostics Work Phone: Start: 12-23-2023 End: 95-45-5241etupdwgafvSP [facility] Work Phone: 1([phone] [place] [address] Center Work Phone: Start: 12-23-2023 End: 77-19-5052Uvzcvbl encounter procedureDO [facility] Work Phone: [facility] Work Phone: Start: 10-19-2023 End: 51-41-3243ajlmrpgoiqRE [facility] Work Phone: 1(866)112-[address] [place] [address] Ctr Work Phone: Start: 10-19-2023 End: 83-87-6611Tcigrgvvar RecurringDO [facility] Work Phone: 1([phone] [place] [address] Ctr-Wound Care [place] Work Phone: Start: 07-22-2023 End: 18-63-0642pkwuczhtwtWO [facility] Work Phone: 1([phone] [place] [address] Ctr Work Phone: Start: 07-22-2023 End: 53-71-5917Vezqzhs encounter procedureDO [facility] Work Phone: [phone] [place] [address] Ctr-Respiratory Therapy Work Phone: Start: 40-48-7990Hebppaqvpc RecurringDO [facility] Work Phone: [facility]-Wound Care [place] Work Phone: Start: 06-18-2023 End: 04-15-1511Fwsfwaicz department patient visitDO Keagan Oro Work Phone: [facility]-Emergency Room Work Phone: Start: 05-31-2023 End: 33-69-0352utbrzzvtkdMdbrz Chaban Other [employer] Other Start: 06-14-5869Pcwqyr outpatient visit 15 minutes Kamal ChabanFPG Pulmonary DiseaseStart: 05-21-2023 End: 53-18-2980sjscgtyuxkKO Keagan Oro Work Phone: [facility] Work Phone: Start: 05-21-2023 End: 00-41-0707Rdrumec encounter procedureDO Keagan Oro Work Phone: [facility]-CT Scan [place] Work Phone: Start: 03-22-2023 End: 08-13-4730opcerqhxliHvwea Chaban Other [employer] Other Start: 62-94-5952Hujkav outpatient new 45 minutesKamal ChabanFPG Pulmonary DiseaseStart: 75-84-6246cejggqtzdtTaahvxxn:9090Start: 11-24-2022 End: 78-60-3406cfmqpngdafSR Johnny Coronado Work Phone: [facility] Work Phone: Start: 11-24-2022 End: 65-42-1326Cmighsj encounter procedureMD Johnny Coronado Work Phone: [facility]-Lab [address] Work Phone: Start: 61-91-0308Hqbhqcrwd for general adult medical examination without abnormal findingsDR KEAGAN [facility] HospitalStart: 10-15-2022 End: 71-52-2519djzghinepgQW KEAGAN OROFacility:F8Iwjkq: 10-15-2022 End: 79-93-8675Oyhnswict for general adult medical examination without abnormal findingsDR KEAGAN OROFacility:E9Rtrdi: 07-13-2022 End: 93-22-5068ycytascfdwQG CHARLES HOUSEFacility:Z6Ajcpd: 07-07-2022 End: 45-56-1882cbdnukftdbDT CHARLES DONOVANFacility:N6Zvkiv: 01-28-2022 End: 78-76-0657buvplegbakBB KEAGAN [facility]H1 Procedures DateProcedureProcedure DetailPerforming ClinicianStart: 89-62-1913GML of cervical spine without contrastAgustina Benitez PHARMACY DISTRICT MANAGER-C Work Phone: Start: 41-94-3710IfggkjfryntZtmdmhf NILL Start: 22-76-0969AP of chest without contrastNP-C Agustina Benitez Work Phone: Start: 33-97-7549VF of chest without contrastDO Keagan Oro Work Phone: cholecystectomyMichael NILL Plan of Treatment DateCare ActivityDetailAuthorStart: 42-89-6082Hfncptp [facility] Work Phone: Start: 96-89-3202Npqpytwvl complement CH50 level [facility] Medical Centertart: 92-08-8609Lyvgkatva complement CH[address] [facility] [address] [facility] Hospitaltart: 04-12-2935MgmdnwttrMemorial HospitalComplement C3 [Mass/volume] in Serum or PlasmaMemorial HospitalComplement C4 [Mass/volume] in Serum or PlasmaMemorial HospitalElectromyographyMemorial HospitalLupus anticoagulant [Interpretation] in Platelet poor plasmaMemorial HospitalMR Cervical spine WO contrastMemorial HospitalPatient referralWvumedicine [facility] Work Phone: Thrombin [facility] CenterUS Heart TransthoracicPalmdale Regional Medical Center Immunizations Immunization DateImmunizationNotesCare UmxzogtdXmrbtaut62-22-5937ZOJO-JbF-9 (COVID-19) mRNA BNT-162b2 vaxMichael NILL [phone]-FuzceCleveland Clinic Medina Hospital General Surgery [place] Comment on above:Result Comment: 2024-07-03: [id number]-GdK-7 (COVID- 19) mRNA BNT-162b2 vaxMichael NILL [phone]-RtffcCleveland Clinic Medina Hospital General Surgery [place] Comment on above:Result Comment: 2024-07-03: [id number] Payers DatePayer CategoryPayerPolicy [id number] Health [id number] 2..1.141911.3.57[id number] ..1.679432.3.57[id number] 2..1.308015.3.57[id number] ..1.702302.3.57[id number] ..1.726780.3.57[id number] ..1.592305.3.57[id number] .1.642692.3.57[id number] 2.0.1.380908.3.579.[id number] 2..840.1.49655[id number] 2.0.1.981101.3.579.2.531 [id number] 2.16840.1.266411.3.579.2.124Ddlnnhn12863825 2.0.1.0[id number] 2.0.1.270231.3.579.2.531 Social History DateTypeDetailFacilityTobacco smoking status NHISUnknown if ever smokedBrown [facility] Hospital Ctr Work Phone: Start: 69-22-8711Plo Assigned At [facility] Hospitalex Assigned At [facility] Hospitaltart: 86-84-6967Zrcksoi smoking status NHISSmoker (finding)[facility] Medical Centertart: 07-22-2023 End: 47-40-6912Nytrqou smoking status NHISEx-smoker (finding)[facility] Centertart: 12-23-2023 End: 38-54-2984Huorber smoking status NHISCurrent some day smokerCincinnati Children's Hospital Medical Centertart: 06-15-2024 End: 81-56-3074WvjGtiy (finding)[facility] Medical Centertart: 08-01-2024 End: 73-93-9818Kfezwom smoking statusLight tobacco smoker (finding)[facility] medical centerkTobacco smoking statusNeverFisher-[facility] Functional Status KnldYtyxkqdotmGrduybUbyhawpb20-99-7770Twkhkixyui StatusN/AFisher-[facility] General Surgery Mpzfgpv18-41-8488Vohwkkzycb StatusN/AFisher-[facility] General [facility] [place] Clinical Notes 03-22-2023 to 02-15-2025 Note Date & HlrvYfhmPvlrpjoc63-90-2555 Evaluation note* Diagnosis Onset Date Resolution Status Admit Date Numbness and tingling acuteJuly 2024 9:05amOveruse syndromeacuteJuly 2024 9:05amWeakness of right armacuteJuly 2024 9:05amNumbness and tinglingacuteAugust 2024 9:06amOveruse syndromeacuteAugust 2024 9:06amWeakness of right arm acuteAugust 2024 9:06amNumbness and tinglingacuteSeptember 2024 9:03amOveruse syndromeacuteSeptember 2024 9:03amWeakness of right armacute Shayy 2024 9:03am [facility] Work Phone: 1(288) 765-314207-02-2025 Evaluation note* Diagnosis Onset Date Resolution Status Admit Date Numbness and tingling acuteJuly 2024 8:33amOveruse syndromeacuteJuly 2024 8:33amWeakness of right armacuteJuly 2024 8:33amNumbness and tinglingacuteJuly 2024 9:05amOveruse syndromeacuteJuly 2024 9:05amWeakness of right armacuteJuly 2024 9:05amNumbness and tinglingacuteAugust 2024 9:06amOveruse syndromeacuteAugust 2024 9:06amWeakness of right armacuteAugust 2024 9:06am [facility] Work Phone: 1(845) 846-426705-22-2025 Evaluation note* Diagnosis Onset Date Resolution Status Admit Date Asthma-COPD overlap syndrome acuteMay 2024 8:40amCREST syndromeacuteMay 2024 8:40amOther secondary pulmonary hypertensionacuteMay 2024 8:40amPulmonary cavitary lesionacuteMay 2024 8:40amParesthesia of right upper extremitynoneactive January 24, 2025 8:33am [facility] Work Phone: 1(165) 288-742505-22-2025 Evaluation note* Diagnosis Onset Date Resolution Status Admit Date Asthma-COPD overlap syndrome acuteMay 2024 8:40amCREST syndromeacuteMay 2024 8:40amOther secondary pulmonary hypertensionacuteMay 2024 8:40amPulmonary cavitary lesionacuteMay 2024 8:40amNumbness and tinglingacuteJuly 2024 8:33am Overuse syndromeacuteJuly 2024 8:33amWeakness of right armacuteJuly 2024 8:33am [facility] Work Phone: 1(182) 546-891405-22-2025 Evaluation note* Diagnosis Onset Date Resolution Status [...] 2024 9:06amWeakness of right armacuteAugust 2024 9:06am [facility] Work Phone: 1(594) 468-300105-02-2025 [facility] [place] [id number] Pulmonary Function Signed Patient: Ritchie Thorne MR#: [id number] : 1975 Date of Service:0 11/24/24 Age/Sex: 49 / M ADM Date: 5 Loc: RT Room: Type: [facility] Attending Dr: Enrico Mc DO Copies to: [...] MD 11/24/24 1415 Signed By: 11/24/24 1418 [facility]01-14-2025 NoteSubjective Patient ID: Bebo Thorne is [...] the past 36 hour(s)). No follow-ups on file.[facility]01-07-2025 NoteGeneral Surgery Office/Clinic Note Chief Complaint consultation [...] mRNA BNT-162b2 vax 04/10/2021 Recorded 2024-07-03: TPV40 [facility] AdministrationComment on above:Result Comment: Electronically Signed By: JOAQUÍN CHAVEZ, Silvestre Gunderson\Date and Time Signed: 08/01/24 08:41 EST 06-15-2024 Evaluation note* Diagnosis Onset Date Resolution Status Admit Date Calcified lymph nodes acuteNov2023 8:53amCentrilobular emphysemaacuteNov2023 8:53amCigarette nicotine dependence with nicotine-induced disorderacuteNov2023 8:53amCREST syndromeacuteNov2023 8:53amDiastolic dysfunctionacuteNov2023 8:53amOther secondary pulmonary hypertension acuteJune 15, 2024 8:53amPulmonary cavitary lesionacuteNov2023 8:53amRaynaud's disease with gangreneacuteNovember 2023 8:53am [facility] Work Phone: 1(789) 665-708803-26-2024 Progress note Author [facility] October 19, 2023 7:21amNote Date/TimeMarch 2023 7:21[place] [address] Wound Center Provider Note Signed Patient: Ritchie Thorne MR#: [id number] : 1975 Acct:[id number] Age/Sex: 48 / M Copies to: DO Jennifer Howard, RITU~ HPI Date of Visit Date of Visit: Date of Service: 10/19/2023 Time of Service: 07:19 Narrative HPI: 06/22/23 Ritchie is a 47 year old presenting to [facility] wound care program for an initial visit for eval and treatment of a eschar areas to his fingers that isthe result of his 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 He follows with rheumatology and has been seen by vascular in [place] and he was told that he his [...] wound start?: Early May Mode of Arrival/ Poll Watcher: Personal vehicle Lives with:: Spouse Appetite Description: Within Normal Limits Who helps w/ dressing change?: Self Smoking Status: Former smoker [facility] Medical History (Updated 08/12/23 @ 07:37 [...] 0.1 CM Sq: 0.240 Surrounding Tissue Appearance: [place] Surrounding Tissue Temp: Warm Drainage Amount: Scant [...] By: <Electronically signed by RITU Koenig> 10/19/23720 [facility] Work Phone: 1(936) 861-966302-29-2024 Progress note Author [facility] September 23, 2023 7:36amNote Date/TimeFebruary 2023 7:36[place] [address] Wound Center Provider Note Signed Patient: Ritchie Thorne MR#: [id number] : 1975 Acct:[id number] Age/Sex: 48 / M Copies to: DO Jennifer Howard APRN~ HPI Date of Visit Date of Visit: Date of Service: 09/23/2023 Time of Service: 07:29 Narrative HPI: 06/22/23 Ritchie is a 47 year old presenting to [facility] wound care program for an initial visit for eval and treatment of a eschar areas to his fingers that isthe result of his 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 He follows with rheumatology and has been seen by vascular in [place] and he was told that he his [...] wound start?: Early May Mode of Arrival/ Poll Watcher: Personal vehicle Lives with:: Spouse Appetite Description: Within Normal Limits Who helps w/ dressing change?: Self Smoking Status: Former smoker [facility] Medical History (Updated 08/12/23 @ 07:37 [...] 0.1 CM Sq: 0.960 Surrounding Tissue Appearance: [place] Surrounding Tissue Temp: Warm Drainage Amount: Scant [...] <Electronically signed by RITU Koenig> 09/23/23 0736 [facility] Work Phone: 1(384) 895-789702-08-2024 Progress note Author [facility] September 02, 2023 7:25amNote Date/TimeFebruary 2023 7:25[place] [address] Wound Center Provider Note Signed Patient: Ritchie Thorne MR#: [id number] : 1975 Acct:[id number] Age/Sex: 48 / M Copies to: DO Jennifer Howard APRN~ HPI Date of Visit Date of Visit: Date of Service: 09/02/2023 Time of Service: 07:20 Narrative HPI: 06/22/23 Ritchie is a 47 year old presenting to [facility] wound care program for an initial visit for eval and treatment of a eschar areas to his fingers that isthe result of his 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 He follows with rheumatology and has been seen by vascular in [place] and he was told that he his [...] wound start?: Early May Mode of Arrival/ Poll Watcher: Personal vehicle Lives with:: Spouse Appetite Description: Within Normal Limits Who helps w/ dressing change?: Self Smoking Status: Former smoker [facility] Medical History (Updated 08/12/23 @ 07:37 [...] 3rd Digit: Type: inflammatory- raynauds Bed Appearance: [place] and Yellow Percent of Wound Bed Granulated/Red: [...] 0.1 CM Sq: 0.700 Surrounding Tissue Appearance: [place] Surrounding Tissue Temp: Warm Drainage Amount: Scant [...] By: <Electronically signed by RITU Koenig> 09/02/23724 [facility] Work Phone: 1(268) 249-568901-18-2024 Progress note Author [facility] August 12, 2023 7:37amNote Date/TimeJanuary 2023 7:37[place] [address] Wound Center Provider Note Signed Patient: Ritchie Thorne MR#: [id number] : 1975 Acct:[id number] Age/Sex: 47 / M Copies to: DO Jennifer Howard, RITU~ HPI Date of Visit Date of Visit: Date of Service: 08/12/2023 Time of Service: 07:33 Narrative HPI: 06/22/23 Ritchie is a 47 year old presenting to [facility] wound care program for an initial visit for eval and treatment of a eschar areas to his fingers that isthe result of his 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 He follows with rheumatology and has been seen by vascular in [place] and he was told that he his [...] wound start?: Early May Mode of Arrival/ Poll Watcher: Personal vehicle Lives with:: Spouse Appetite Description: Within Normal Limits Who helps w/ dressing change?: Self Smoking Status: Former smoker [facility] Medical History (Updated 08/12/23 @ 07:37 [...] Digit: Type: inflammatory- raynauds Bed Appearance: Brown, [place] and Yellow Percent of Wound Bed Granulated/Red: [...] 0.1 CM Sq: 0.600 Surrounding Tissue Appearance: [place] Surrounding Tissue Temp: Warm Drainage Amount: Scant [...] <Electronically signed by RITU Koenig> 08/12/23 0737 [facility] Work Phone: 1(164) 258-608912-28-2023 Progress note Author [facility] July 22, 2023 7:58amNote Date/TimeDecember 2022 7:[place] [address] Wound Center Provider Note Signed Patient: Ritchie Thorne MR#: [id number] : 1975 Acct:[id number] Age/Sex: 47 / M Copies to: DO Jennifer Howard APRN~ HPI Date of Visit Date of Visit: Date of Service: 07/22/2023 Time of Service: 07:55 Narrative HPI: 06/22/23 Ritchie is a 47 year old presenting to [facility] wound care program for an initial visit for eval and treatment of a eschar areas to his fingers that isthe result of his 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 He follows with rheumatology and has been seen by vascular in [place] and he was told that he his [...] wound start?: Early May Mode of Arrival/ Poll Watcher: Personal vehicle Lives with:: Spouse Appetite Description: Within Normal Limits Who helps w/ dressing change?: Self Smoking Status: Former smoker [facility] Medical History (Updated 07/07/23 @ 07:29 [...] Digit: Type: inflammatory- raynauds Bed Appearance: Brown, [place] and Yellow Percent of Wound Bed Granulated/Red: [...] <Electronically signed by RITU Koenig> 07/22/23 0758 [facility] Work Phone: 1(480) 443-293712-13-2023 Progress note Author [facility] July 07, 2023 7:29amNote Date/TimeDecember 2022 7:29[place] [address] Wound Center Provider Note Signed Patient: Ritchie Thorne MR#: [id number] : 1975 Acct:[id number] Age/Sex: 47 / M Copies to: DO Jennifer Howard, ENGINE TEST CELL TECHNICIAN~ HPI Date of Visit Date of Visit: Date of Service: 07/07/2023 Time of Service: 07:25 Narrative HPI: 06/22/23 Ritchie is a 47 year old presenting to [facility] wound care program for an initial visit for eval and treatment of a eschar areas to his fingers that isthe result of his 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 He follows with rheumatology and has been seen by vascular in [place] and he was told that he his [...] wound start?: Early May Mode of Arrival/ Poll Watcher: Personal vehicle Lives with:: Spouse Appetite Description: Within Normal Limits Who helps w/ dressing change?: Self Smoking Status: Former smoker [facility] Medical History (Updated 07/07/23 @ 07:29 [...] inflammatory- raynauds Bed Appearance: [place] and [place] Percent of Wound Bed Granulated/Red: 5 Percent [...] <Electronically signed by RITU Koenig> 07/07/23 0729 [facility] Work Phone: 1(257) 418-534111-28-2023 Progress note Author [facility] June 22, 2023 8:24amNote Date/TimeNovember 2022 8:[place] [address] Wound Center Provider Note Signed Patient: Ritchie Thorne MR#: [id number] : 1975 Acct:[id number] Age/Sex: 47 / M Copies to: DO Jennifer Howard APRN~ HPI Date of Visit Date of Visit: Date of Service: 06/22/2023 Time of Service: 08:07 Narrative HPI: 06/22/23 Ritchie is a 47 year old presenting to [facility] wound care program for an initial visit for eval and treatment of a eschar areas to his fingers that isthe result of his 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 He follows with rheumatology and has been seen by vascular in [place] and he was told that he his [...] wound start?: Early May Mode of Arrival/ Poll Watcher: Personal vehicle Lives with:: Spouse Appetite Description: Within Normal Limits Who helps w/ dressing change?: Self Smoking Status: Former smoker [facility] Medical History (Updated 06/22/23 @ 08:23 [...] <Electronically signed by RITU Koenig> 06/22/23 0824 [facility] Work Phone: 1(965) 169-370011-06-2023 Evaluation note* Encounter Date Diagnosis Assessment Notes Treatment Notes Treatment Clinical Notes May, Chronic obstructive pulmonary disease, unspecified COPD type (ICD- 10 - J44.9) May,Lung nodule (ICD-10 - R91.1)We will continue to follow-up on the lung nodule with a [address], and see him for follow-up after that May,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) May,Tobacco use disorder (ICD-10 - F17.200) [facility] Other 08-28-2023 Evaluation note* Encounter Date Diagnosis Assessment Notes Treatment Notes Treatment Clinical Notes Feb, Chronic obstructive pulmonary disease, unspecified COPD type (ICD- 10 - J44.9) Feb,Lung nodule (ICD-10 - R91.1) Feb,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) Feb,Tobacco use disorder (ICD-10 - F17.200) [employer] Other Evaluation + Plan note No data available for this section [facility] [place] Evaluation noteNo assessment information available [facility] Work Phone: Evaluation note* Diagnosis Onset Date Resolution Status Buergers disease chronicDry gangrenechronicInflammationchronicPainchronicRaynaud diseasechronic Tobacco abuseresolved [facility] Work Phone: Evaluation note* Diagnosis Onset Date Resolution Status Autoimmune disorder acuteTobacco abuseacuteBuergers diseasechronicDry gangrenechronicInflammation chronic [facility] Work Phone: Evaluation note* Diagnosis Onset Date Resolution Status Buergers disease chronicCalcified lymph nodesacuteCentrilobular emphysemaacuteCigarette nicotine dependence with nicotine-induced disorderacuteCREST syndromeacuteOther secondary pulmonary hypertensionacutePulmonary cavitary lesionacuteRaynaud's disease with gangreneacute [facility] Work Phone: evaluation note* Diagnosis Onset Date Resolution Status Calcified lymph nodes acuteCentrilobular emphysemaacuteCigarette nicotine dependence with nicotine- induced disorderacuteCREST syndromeacuteDiastolic dysfunctionacuteOther secondary pulmonary hypertensionacutePulmonary cavitary lesionacuteRaynaud's disease with gangreneacute [facility] Work Phone: Evaluation note* Diagnosis Onset Date Resolution Status Calcified lymph nodes acuteCentrilobular emphysemaacuteCigarette nicotine dependence with nicotine- induced disorderacuteCREST syndromeacuteDiastolic dysfunctionacuteOther secondary pulmonary hypertensionacutePulmonary cavitary lesionacuteRaynaud's disease with gangreneacuteCalcified lymph nodesacuteCentrilobular emphysemaacute Cigarette nicotine dependence with nicotine-induced disorderacuteCREST syndrome acuteDiastolic dysfunctionacuteOther secondary pulmonary hypertensionacute Pulmonary cavitary lesionacuteRaynaud's disease with gangreneacute [facility] Work Phone: Evaluation note* Diagnosis Onset Date Resolution Status Admit Date Calcified lymph nodes acuteJune 15, 2024 8:53amCentrilobular emphysemaacuteJune 15, 2024 8:53amCigarette nicotine dependence with nicotine-induced disorderacuteJune 15, 2024 8:53amCREST syndromeacuteJune 15, 2024 8:53amDiastolic dysfunction2023 8:53amOther secondary pulmonary hypertension acuteJune 15, 2024 8:53amPulmonary cavitary lesionacuteJune 15, 2024 8:53amRaynaud's disease with gangreneacuteNovember 2023 8:53am [facility] Work Phone: History general Narrative - Reported* Type Description Date Medical History hypertension Medical HistoryEsophageal refluxSurgical Historycholecystectomy [facility] Other Hospital Discharge instructions No data available for this section [facility] Surgery [place] Progress note No data available for this section [facility] [place] Reason for referral (narrative)No reason for referral information available[facility] Work Phone: Summary Purpose Family History No [...] Reason for Visit Chief Complaint Admit Date RATE MARKER: 3 mo f/u June 15, 2024 [...] Dr. Coronado's request I27.29 M34.1 I27.29 M34.1 RATE MARKER: 2 mo f/u Pulm HTNReason for VisitCalcified lymph nodes Centrilobular emphysema Cigarette nicotine dependence with nicotine-induced disorder CREST syndrome Diastolic dysfunction Other secondary pulmonary hypertension Pulmonary cavitary lesion Raynaud's disease with gangrene Calcified lymph nodes Centrilobular emphysema Cigarette nicotine dependence with nicotine-induced disorder CREST syndrome Diastolic dysfunction Other secondary pulmonary hypertension Pulmonary cavitary lesion Raynaud's disease with gangrene Chief Complaint RATE MARKER: 2 mo f/u Pulm H [place] R91.1Reason for VisitCalcified lymph nodes Centrilobular emphysema Cigarette nicotine dependence with nicotine-induced disorder CREST syndrome Diastolic dysfunction Other secondary pulmonary hypertension Pulmonary cavitary lesion Raynaud's disease with gangrene Chief Complaint Admit Date R91.1 April 28, 2024 7: 51am RATE MARKER: 3 mo f/u June 15, 2024 [...] 7:43am M34.1 J43.2 November 24, 2024 2:15pm RATE MARKER: 6 mo f/u Pulm HTN, Centrilobular Em [...] 7:43am M34.1 J43.2 November 24, 2024 2:15pm RATE MARKER: 6 mo f/u Pulm HTN, Centrilobular Em [...] 2025 8:3 3am Chief Complaint Admit Date RATE MARKER: 6 mo f/u Pulm HTN, Centrilobular Em [...] section and content) DATE CREATED AUTHOR 10/19/2022 [facility] DATE CREATED AUTHOR AUTHOR'S ORGANIZ ATION 01/05/2023 [facility] DATE CREATED AUTHOR AUTHOR'S ORGANIZ ATION 10/14/2024 [facility] DATE CREATED AUTHOR AUTHOR'S ORGANIZ ATION 05/13/2025 [facility] DATE CREATED AUTHOR AUTHOR'S ORGANIZ ATION 06/02/2025 [facility] Care Teams (unrecognized sec tion and content) [...] Inactive Member Role Status Dates Agustina Benitez PHARMACY DISTRICT MANAGER-C Primary Care Provider Active Xavier Camacho ProviderActive Team Status: Inactive Member Role Status Dates Keagan DO Xander Primary Care Provider Active Start: October 19, 2023 End: October 19, 2023Esther Mc ProviderActiveStart: October 19, 2023 End: October 19, 2023 Team Status: Inactive Member Role Status Dates Agustina Benitez PHARMACY DISTRICT MANAGER-C Primary Care Provider Active Start: December 23, 2023 End: December 23, 2023Natelias P Jesusita , DOAttending ProviderActiveStart: December 23, 2023 End: December 23, 2023 Team Status: Inactive Member Role Status Dates Agustina Benitez , PHARMACY DISTRICT MANAGER-C Primary Care Provider Active Start: January 17, 2024 End: January 17, 2024Nathan P Samsa , DOAttending ProviderActiveStart: January 17, 2024 End: January 17, 2024 Team Status: Active Member Role Status Dates Agustina Benitez , PHARMACY DISTRICT MANAGER-C Primary Care Provider Active Start: January 17, 2024 Enrico P Jesusita , DOOther ProviderActiveStart: January 17, 2024 Efren Esteves , MDAttending ProviderActiveStart: January 17, 2024 Team Status: Inactive Member Role Status Dates Agustina Benitez PHARMACY DISTRICT MANAGER-C Primary Care Provider Active Start: February 24, 2024 End: February 24, 2024Nathan P Samsa , DOAttending ProviderActiveStart: February 24, 2024 End: February 24, 2024 Team Status: Inactive Member Role Status Dates Agustina Benitez PHARMACY DISTRICT MANAGER-C Primary Care Provider Active Start: April 28, 2024 End: April 28cheryl Esteves , MDAttending ProviderActiveStart: April 28, 2024 End: April 28, 2024 Team Status: Inactive Member Role Status Dates Agustina Benitez PHARMACY DISTRICT MANAGER-C Primary Care Provider Active Start: June 15, 2024 End: June 15, 2024Nathan P Samsa , DOAttending ProviderActiveStart: June 15, 2024 End: June 15, 2024 Team Status: Inactive Member Role Status Dates Silvestre Yanes MD FACS Attending Provider Active Start: August 23, 2024 End: August 23, 2024 Team Status: Inactive Member Role Status Dates Jenny Pop PHARMACY DISTRICT MANAGER-C Attending Provider Active Start: September 19, 2024 End: September 19, 2024Agustina Benitez PHARMACY DISTRICT MANAGER-[facility]ru[facility] Care ProviderActive Start: September 19, 2024 End: September 19, 2024 Team Status: Inactive Member Role Status Dates Agustina Benitez , PHARMACY DISTRICT MANAGER-C Primary Care Provider Active Start: November 24, 2024 End: November 24, 2024Enrico Mc , DOAttending ProviderActiveStart: November 24, 2024 End: November 24, 2024 Team Status: Active Member Role Status Dates Agustina Benitez , PHARMACY DISTRICT MANAGER-C Primary Care Provider Active Start: November 24, 2024 Enrico Mc , DOOther ProviderActiveStart: November 24, 2024 Efren Esteves , MDAttending ProviderActiveStart: November 24, 2024 Team Status: Inactive Member Role Status Dates Agustina Benitez , PHARMACY DISTRICT MANAGER-C Primary Care Provider Active Start: December 14, 2024 End: December 14brock Hart MDAttending ProviderActiveStart: December 14, 2024 End: December 14, 2024 Team Status: Inactive Member Role Status Dates Agustina Benitez , PHARMACY DISTRICT MANAGER-C Primary Care Provider Active Start: January 24, 2025 End: January 24, 2025Cherry Pan , DOAttending ProviderActiveStart: January 24, 2025 End: January 24, 2025 Team Status: Inactive Member Role Status Dates Agustina Benitez , PHARMACY DISTRICT MANAGER-C Primary Care Provider Active Start: February 15, 2025 End: February 15, 2025Cherry Pan , DOAttending ProviderActiveStart: February 15, 2025 End: February 15, 2025 Team Status: Active Member Role Status Dates Agustina Benitez , PHARMACY DISTRICT MANAGER-C Primary Care Provider Active Start: March 07, 2025 Cherry Pan DOAttending ProviderActiveStart: March 07, 2025 Team Status: Inactive Member Role Status Dates Agustina Michaela Benitez , PHARMACY DISTRICT MANAGER-C Primary Care Provider Active Start: March 07, 2025 End: March 07martha Livingston APRNAttenmario ProviderActiveStart: March 07, 2025 End: March 07, 2025 Team Status: Active Member Role Status Dates Agustina Benitez , PHARMACY DISTRICT MANAGER-C Primary Care Provider Active Start: March 28, 2025 Cherry Pan DOAttending ProviderActiveStart: March 28, 2025 Team Status: Inactive Member Role Status Dates Agustina Benitez PHARMACY DISTRICT MANAGER-C Primary Care Provider Active Start: March 29, 2025 End: March 29martha Livingston , APRNAttenmario ProviderActiveStart: March 29, 2025 End: March 29, 2025 Team Status: Inactive Member Role Status Dates Agustina Benitez , PHARMACY DISTRICT MANAGER-C Primary Care Provider Active Start: April 23, 2025 End: April 23, 2025Cherry Pan , DOAttending ProviderActiveStart: April 23, 2025 End: April 23, 2025 Team Status: Inactive Member Role Status Dates Agustina Benitez , PHARMACY DISTRICT MANAGER-C Primary Care Provider Active Start: May 09, [...] BE BASED ON THE PRIMARY CLINICAL RECORDS. [employer] provides no warranty or guarantee of the accuracy or completeness of information in this document.
--- OUTSIDE RECORDS SUMMARY | 2025-06-27 03:55 | XMS_ITS | Clinical Summary ---
Author Organization [facility] Address [address] [place] [address] Care Team Providers Care Supervisor [employer] Name Role Phone Agustina Andrews CNP Primary Care Provider [phone] Allergies No known active allergies Medications MedicationSigDispense [...] BY MOUTH IN THE MORNING 30 tablet Expired Active Problems ProblemNoted DateDiagnosed DateDry /24/2023 Assessment & Plan (06/30/2023 10:47 AM EST): I can follow-up with dermatology. Continue best medical therapy. Continue smoking cessation. Continue calcium channel ekta. Encounters DateTypeDepartmentCare JxgtYiviygxvvgz85/06/2025Telephone [facility] Vascular and Endovascular Surgery [address] [place] [id number] Lea Mcghee MA 05/17/2025[facility] [address] [place] [address] Kimber Wu PA-C Raynaud's disease with gangrene (CMS/HCC)05/16/2025[facility] [address] [place] [address] Kimber Wu PA-C Raynaud's disease [...] heating?Not hard at all06/18/2023HQ-2AnswerDate RecordedPatient Health Questionnaire-2 Kszvb066UT Safety & Environment AnswerDate RecordedWithin the last [...] file06/18/2023Sex and Gender InformationValueDate RecordedSex Assigned at JqiwnUchk19/25/2023 10:34 AM ESTLegal JmcWofg9301/21/2022 11:52 PM EDTGender JndoplvqFiew49/25/2023 10:34 AM ESTSexual Orientation Heterosexual or Szbfhegr53/25/2023 10:34 AM EST Last Filed Vital Signs Vital SignReadingTime TakenCommentsBlood Lzvwulff310/78008/08/2024 10:29 AM EST Eqztg9542 10:29 AM NEQGtutqolymje52.8 ??C (98.2 ??F)08/08/2024 10:29 AM ESTRespiratory Hyzd608108/31/2022 9:42 AM ESTOxygen Vgfookndzj08%06/18/2023 2:27 PM ESTInhaled Oxygen Concentration--Psbipk81.3 kg (210 lb)08/08/2024 10:29 AM XJMKgzbpw904.9 cm (6')06/30/2023 9:42 AM ESTBody Mass Index28.4806/30/2023 9:42 AM EST Plan of Treatment Health MaintenanceDue DateLast DoneCommentsCT Cthcpzkfuzeg48/22/1974FOBT 1975 8727Prdnrqzlsyubv32/22/1974Hepatitis B Vaccines (1 of 3 - 19+ 3-dose series)1992Pneumococcal Vaccine: Pediatrics (0 to 5 Years) and At-Risk Patients (6 to 64 Years) (1 of 2 - PCV)1992Adult Biepqce6908/16/1995FIT /03/2022Zoster Vaccines (1 of 2)2023FIT-DNA01/31/2025 2COVID-19 Vaccine (3 - 2024- season)/01/2021, 04/10/2021 Influenza Vaccine (#1)2025Depression Dksvyijmc82/14/308608/ Gcjvytstddr17/29/178798/olorectal Cancer Ojzszptqu32/29/2035HIB Vaccines Aged OutNo longer eligible based on [...] Blair TypeRelation to PatientDate of BirthPhone Billing AddressPersonal/OfrjkuNagc82/22/1976 [address] [address] Advance Directives * Full Code (Latest Code Status on File) Date ActivatedDate UfxzapekmtxKbrlpark17/24/2023 3:28 PM06/19/2023 6:20 PM Care Teams Team MemberRelationshipSpecialtyStart DateEnd Date Agustina Andrews CNP [address] [place] [address], [facility] [place] [address] PCP - GeneralFamily Wbsajlfb59/25/23
--- OUTSIDE RECORDS SUMMARY | 2025-06-27 03:55 | XMS_ITS | Patient Health Record ---
Author Organization [facility] [place] Address [address] [place] [address] Care Team Providers Care Clinical Pharmacy Specialist Name Role Phone Agustina Andrews Primary Care Provider Allergies No Known Allergies Results Component Value Reference Range Notes CRP Reviewed date:06/04/2025 02:02:43 PM Interpretation: Performing Lab: Notes/Report: [facility] , C Reactive Protein <0.50 <=0.50 mg/dL Performing Lab:see noteML - [facility] LBUA RANDOM W or MICROSCOPIC Reviewed date:06/04/2025 09:43:40 AM Interpretation: Performing Lab: Notes/Report: [facility] ,Color UrineLT. YELLOWYELLOWClarity UrineCLEARCLEARSpecific [place] Urine1.020 1.005-1.025pH Urine5.55.0-9.0Protein UrineNEGATIVENEG/TRACE mg/dLGlucose Urine UANEGATIVENEGATIVE mg/dLBilirubin UrineNEGATIVENEGATIVEKetones UrineNEGATIVE NEGATIVE mg/dLBlood UrineNEGATIVENEGATIVENitrite UrineNEGATIVENEGATIVE Urobilinogen Urine0.20.2-1.0 EU/dLLeukocyte Esterase UrineNEGATIVENEGATIVEWBC UrineNONE SEENNONE SEEN #/HPFRBC UrineNONE SEEN0-2 #/HPFBacteria UrineNONE SEEN NONE SEEN #/HPFMucus UrineNONE SEENNONE SEENSquamous Epithelial Cell UrineRARE NONE/RARE #/LPFCrystals Seen?None SeenNone Seen #/HPFCast Seen?NONE SEENNONE SEEN #/LPFPerforming Lab:see noteML - [facility] LBCBC AUTO DIFF (Not yet reviewed by provider) Interpretation: Performing Lab: Notes/Report: [facility] ,White Blood Count10.54.0-11.0 10 3/uLRed Blood Count4.154.70-6.10 10 6/uL Wzbbsvjmbj54.714.0-18.0 g/oDVezddqrhxl11.142.0-54.0 %Mean Corpuscular Gerugt46.0 80.0-94.0 fLMean Corpuscular Bhbizgafpm25.025.9-34.0 pgMean Corpuscular HGB Conc 33.329.9-35.2 g/dLRed Cell Distribution Width14.011.0-15.0 %Platelet Iznyl971 150-450 10 3/uLMean Platelet Isxizu13.39.5-13.5 fLNeutrophils Percent Auto73.5 43.0-75.0 %Lymphocytes Percent Auto11.520.5-60.0 %Monocytes Percent Auto11.61.7- 12.0 %Eosinophils Percent Auto0.40.9-7.0 %Basophils Percent Auto0.80.2-2.0 % Immature Granulocytes Pct Auto2.20.0-0.5 %Neutrophils Absolute Auto7.81.4-6.5 10 3/uLLymphocytes Absolute Auto1.21.2-3.8 10 3/uLMonocytes Absolute Auto1.20.3-0.8 10 3/uLEosinophils Absolute Auto0.00.0-0.7 10 3/uLBasophils Absolute Auto0.10.0- 0.1 10 3/uLImmature Granulocytes Abs Auto0.230.00-0.03 10 3/uLPerforming Lab:see noteML - [facility] LBErythrocyte Sedimentation Rate Reviewed date:06/04/2025 09:43:40 AM Interpretation: Performing Lab: Notes/Report: [facility] ,Erythrocyte Sedimentation Rate17<=20 mm/hrPerforming Lab:see noteML - [facility] LBCBC AUTO DIFF Reviewed date:06/04/2025 09:43:40 AM Interpretation: Performing Lab: Notes/Report: [facility] ,White Blood Count10.84.0-11.0 10 3/uLRed Blood Count4.424.70-6.10 10 6/uL Inoypoelza58.814.0-18.0 g/sAYuandzgjzx42.542.0-54.0 %Mean Corpuscular Fusogm49.4 80.0-94.0 fLMean Corpuscular Tostyumtsf11.525.9-34.0 pgMean Corpuscular HGB Conc 34.029.9-35.2 g/dLRed Cell Distribution Width13.911.0-15.0 %Platelet Fwujs630 150-450 10 3/uLMean Platelet Volume9.69.5-13.5 fLNeutrophils Percent Auto70.9 43.0-75.0 %Lymphocytes Percent Auto19.020.5-60.0 %Monocytes Percent Auto8.31.7- 12.0 %Eosinophils Percent Auto0.70.9-7.0 %Basophils Percent Auto0.70.2-2.0 % Immature Granulocytes Pct Auto0.40.0-0.5 %Neutrophils Absolute Auto7.61.4-6.5 10 3/uLLymphocytes Absolute Auto2.01.2-3.8 10 3/uLMonocytes Absolute Auto0.90.3-0.8 10 3/uLEosinophils Absolute Auto0.10.0-0.7 10 3/uLBasophils Absolute Auto0.10.0- 0.1 10 3/uLImmature Granulocytes Abs Auto0.040.00-0.03 10 3/uLPerforming Lab:see noteML - [facility] LBComplement, Total (CH50) Reviewed date:06/05/2025 03:26:40 PM Interpretation: Performing Lab: Notes/Report: [facility] ,Complement, Total (CH50)56>41 U/mL Age Male Female 1 - 30 days [...] determine out of range values. Performed at: [address] [id number] Ergonomics Consultant: Javier Dominguez PhD, Phone: [phone] Performing Lab:see [facility] LBC4+C3 Reviewed date:06/05/2025 09:53:09 AM Interpretation: Performing Lab: Notes/Report: [facility] ,Complement C3, Shuua07929-349 mg/dLComplement C4, Ledkd6410-65 mg/dL Performed at: [address] [id number] Ergonomics Consultant: Javier Dominguez PhD, Phone: [phone] Performing Lab[facility] LBLAB TESTING Reviewed date:06/05/2025 03:26:40 PM Interpretation: Performing Lab: Notes/Report: [id number] METABOLIC PANEL (14), COMPREHENSIVE [facility] ,Miscellaneous TestCOMMENT. Test Ordered: [id number] Comp. Metabolic Panel (14) Glucose 103 [H ] mg/dL CB Reference Range: 70-99 BUN 13 mg/dL CB Reference Range: 6-24 Creatinine 1.03 mg/dL CB Reference Range: 0.76-1.27 eGFR 88 CB Units of Measure: mL/min/1.73 Reference Range: >59 BUN/Creatinine Ratio 13 CB Reference Range: 9-20 Sodium 137 mmol/L CB Reference Range: 134-144 Potassium 4.0 mmol/L CB Reference Range: 3.5-5.2 Chloride 102 mmol/L CB Reference Range: 96-106 Carbon Dioxide, Total 9 [L ] mmol/L CB Reference Range: 20-29 Specimen quantity insufficient for verification by repeat analysis. Calcium 9.1 mg/dL CB Reference Range: 8.7-10.2 Protein, Total 7.3 g/dL CB Reference Range: 6.0-8.5 Albumin 4.4 g/dL CB Reference Range: 3.8-4.9 Globulin, Total 2.9 g/dL CB Reference Range: 1.5-4.5 Bilirubin, Total <0.2 mg/dL CB Reference Range: 0.0-1.2 Alkaline Phosphatase 114 IU/L CB Reference Range: 47-123 AST (SGOT) 61 [H ] IU/L CB Reference Range: 0-40 ALT (SGPT) 57 [H ] IU/L CB Reference Range: 0-44 Performed at: CB - [facility] [address] [id number] Ergonomics Consultant: Javier Dominguez PhD, Phone: [phone] Performing Lab:see noteLC - [facility] LB Reason For Referral Reason right arm paresthesi a Diagnosis 1 Paresthesia of arm ( R20.2) Referral Organization [facility] Referring Provider First Name Agustina Referring Provider Last Name Juliana Referring Provider Speciality [facility] jeremiah Referred Provider Cherry Pan Referred Provider [...] containing alcohol in the past year?Weekly (3 points)Qymzja7IvojqnkvhagdwpXchduwmoVuebtxp Control (Standard) Question Answer Notes Tobacco use: [...] to 3 times per week (3 points) Rpbyzy8YpblvbbwldlqjaLuliqxsf Problems Problem Type SNOMED Code ICD Code Onset Dates Problem Status W/U Status Risk Notes Problem Alcohol abuse (36387448) Alcohol abuse, u ncomplicated (F10.10) ActiveconfirmedProblemRaynaud's disease (156082009)Raynaud's syndrome without gangrene (I73.00)ActiveconfirmedProblemDisorder of arteries and arterioles, unspecified (I77.9)ActiveconfirmedProblemGangrene (583449431)Gangrene, 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)ActiveconfirmedProblemElevated liver enzymes level (538293129)Elevated liver enzymes (R74.8)ActiveconfirmedProblem Hypertriglyceridemia (597556518)Hypertriglyceridemia (E78.1)Activeconfirmed ProblemAsthma-chronic obstructive pulmonary disease overlap syndrome (disorder) (07686217564937127)Asthma with COPD (J44.9)ActiveconfirmedProblemAbnormal feces (636073788)Positive occult stool blood test (R19.5)ActiveconfirmedProblem Paresthesia of arm (03147674)Paresthesia of arm (R20.2)ActiveconfirmedProblem CREST syndrome (21042257)CREST syndrome (M34.1)ActiveconfirmedProblemEmphysema (45834040)Emphysema (J43.9)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)ActiveconfirmedProblemPulmonary hypertension (99317897)Pulmonary hypertension (I27.20)Activeconfirmed Vital Signs Blood pressure diastolic 72 mm Hg 05/08/2025 Uhujmg51 in05/08/2025lood pressure unkevbmx790 mm Hg05/08/20250470Rpnexx930 lbs 05/08/2025BMI29.16 kg/m205/08/2025 Encounters Encounter Location Date Provider Diagnosis [facility] [address] [place] [place] [address] 11/15/2024 Agustina Andrews Paresthesia of arm R20.2 [facility] [address] [place] [place] [address] 05/08/2025 Agustina Andrews Wellness examination Z00.00 [facility] [address] [place] [place] [address] 08/17/2024 Agustina Andrews [facility] [place] [place] [address] 09/18/2024[facility] [place] [place] [address]/06/2025[facility] [address] [place] [place] [address] [place] [place] [address]/ Agutsina Andrews Assessments Encounter Date Diagnosis (ICD Code) Assessment Notes Treatment Notes Treatment Clinical Notes Section Notes 11/15/2024 Paresthesia of arm (ICD-10 - R20 .2) 05/08/2025Wellness examination (ICD-10 - Z00.00) ROS done exam done up to date colonoscopy follows with cardiology and rheum and ortho or spine now for right arm numbness Plan Of Treatment Pending Test Test Name Order Date CMP (COMPLETE METABOLIC PANEL) HEMOGLOBIN A1C (GLYCO) 05/24/2024 HEMOGLOBIN A1C (GLYCO) 05/08/2025 INSULIN, TOTAL 05/08/2025 INSULIN, TOTAL 05/24/2024 LIPID PANEL (CHOL/TRIG/HDL/LDL) 05/08/20 25 LIPID PANEL (CHOL/TRIG/HDL/LDL) 05/24/20 24 CBC WITH DIFF (EXP 05/2025) 05/24/2024 URIC ACID 05/08/2025 URIC ACID 05/24/2024 PSA, TOTAL 05/24/2024 STOOL OCCULT BLOOD 05/24/2024 CBC AUTO DIFF 06/27/2025 THYROID PANEL (T4/TSH/FREE T3) 10/30/202 4 THYROID PANEL (T4/TSH/FREE T3) 5 PSA, SCREENING 05/08/2025 CMP (COMP MET MANN) w/eGFR CKD-EPI 2024 CBC WITH DIFF 05/08/2025 Insurance Providers Payer Name Payer Address Payer Phone Subscriber Number Group Number Insured Name Patient Relationship to Insured Coverage Start Date Coverage End Date [employer] [address] [place] [address] [id number] Rocky Blairelf - patient is the insured Medications Administered Medication Instructions Date of Administration Dosage Notes Ceftriaxone 1 gram g Medical (General) History Surgical History Surgery Date(Month/Year) Gallbladder CholecystectomyColonoscopy Dr means08/03/2024
[2025-06-27 04:00] VITALS: O2SAT 94
[2025-06-27 04:01] LABS: Anion Gap 12.9; Blood Urea Nitrogen 13.0 mg/dL (7.0-18.0); Calcium 9.2 mg/dL (8.5-10.1); Carbon Dioxide 24.9 mmol/L (21.0-32.0); Chloride 104 mmol/L (98-107); Estimated GFR (African America >60 (>=60 mL/min/1.73m^2); Estimated GFR (Non-African Ame 53 (>=60 mL/min/1.73m^2); Glucose 126 mg/dL (74-106); Potassium 3.8 mmol/L (3.5-5.1); Sodium 138 mmol/L (136-145); Uric Acid 7.7 mg/dL (3.5-7.2)
== END 2025-06-27 05:00 | disposition home or self-care (01) ==
PROVIDERS: Emergency Provider Internal Medicine; PCP Nurse Practitioner Family
DX: M10.9 Gout, unspecified (principal); F17.200 Nicotine dependence, unspecified, uncomplicated; Z79.02 Long term (current) use of antithrombotics/antiplatelets
CPT/HCPCS: 36415; 73610; 80048; 84550; 85025; 85652; 86140; 96374; 99284; J2919